=== PATIENT | male | born 1960 | race Caucasian/White ===

== ENCOUNTER 2019-04-08 11:11 | Inpatient (IN) | payer MEDICARE, MEDICAID, SELFPAY ==
[2019-04-08] VITALS (9 sets, daily range): BP systolic 111–142; BP diastolic 66–98; PULSE 64–108; RESP 13–20; TEMP 36.6–37.3; O2SAT 91–98; BMI 21.4; BMI 19.7
--- NOTE | 2019-04-08 11:14 | DI.RAD.S_ITS ---
PROCEDURE: XR FEMUR LT MIN 2V INDICATIONS: injury, pain, fall TECHNIQUE: 4 views of the femur were acquired. COMPARISON: None. FINDINGS: Bones: Comminuted fracture involving the intertrochanteric left femur and base of the left femoral neck. Femoral head appears well-seated within the left acetabulum. Distal femur appears intact. Soft tissues: No suspicious soft tissue calcifications or masses. IMPRESSION: Proximal left femur fracture as above Dictated by: Abhijeet Singh M.D. on 04/08/2019 at 12:35 Approved by: Abhijeet Singh M.D. on 04/08/2019 at 12:37
--- NOTE | 2019-04-08 12:11 | DI.RAD.S_ITS ---
PROCEDURE: XR CHEST 1V INDICATIONS: chest pain TECHNIQUE: One view of the chest was acquired. COMPARISON: None. FINDINGS: Surgical changes and devices: Left arm PICC is present, tip of which is in the mid SVC. Lungs and pleura: Lungs are clear. No pleural effusions or pneumothorax. Mediastinum: Mediastinal contours appear normal. Heart size is normal. Bones and chest wall: No suspicious bony lesions. Overlying soft tissues appear unremarkable. IMPRESSION: No acute process. Dictated by: Jose Weldon M.D. on 04/08/2019 at 13:32 Approved by: Jose Weldon M.D. on 04/08/2019 at 13:33
--- NOTE | 2019-04-08 12:20 | PC.NURSE ---
Marily VILLALPANDO at bedside to do picc line
[2019-04-08 12:47] LABS: Urine Amphetamines Positive (Negative); Urine Barbiturates Negative (Negative); Urine Benzodiazepines Negative (Negative); Urine Cocaine Negative (Negative); Urine MDMA Negative (Negative); Urine Methadone Negative (Negative); Urine Methamphetamines Positive (Negative); Urine Morphine/Opi cutoff 2000 Positive (Negative); Urine Oxycodone Positive (Negative); Urine Phencyclidine Negative (Negative); Urine Tetrahydrocannabinol Negative (Negative); Urine Tricyclic Antidepressant Negative (Negative)
--- NOTE | 2019-04-08 12:54 | ED.LOWEXIN ---
HPI - Extremity Injury (Lower) <JOS Acosta - Last Filed: 04/08/19 19:07> General Chief Complaint: Extremity Injury, Lower Stated Complaint: Fall, leg pain Time Seen by Provider: 04/08/19 12:47 Source: patient and EMS Mode of arrival: wheelchair Limitations: no limitations History of Present Illness HPI Narrative: The patient is a 59-year-old male smoker was running into the bank and fell. He complained of immediate left leg pain/ hip pain. The patient does have a history of IV drug use and uses heroin and opiates. He states he is unable to bear weight. He denies any specific injury to his left leg before hand. Denies blood thinners. He states he is supposed to be on some medication, but does not take any. He states that he is supposed to be on medication for his asthma. He states he had a CVA a year ago. 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 He states he has been clean for approximately 1 week. He was following with a prescriber for Suboxone, but is unable to identify where he is getting it. He presented by EMS. He denies hitting his head, loss of consciousness neck pain or any other pain. Related Data Home Medications Medication Instructions Recorded Confirmed albuterol sulfate 1 puff INHALATION PRN PRN 04/08/19 04/08/19 fluticasone propion-salmeterol 1 puff INHALATION BID 04/08/19 04/08/19 Previous Rx's Medication Instructions Recorded oxycodone 10 mg PO Q6H PRN #20 tab 04/12/19 Allergies Allergy/AdvReac Type Severity Reaction Status Date / Time amoxicillin [AMOXICILLIN] Allergy Unknown DOES NOT Verified 04/08/19 13:52 REMEMBER SOMETHING NOT GOOD Penicillins [PENICILLINS] Allergy Unknown CAN'T Verified 04/08/19 13:52 REMEMBER RX Review of Systems <JOS Acosta - Last Filed: 04/08/19 19:07> Review of Systems GENERAL: Denies chills, fatigue, malaise, fever, sweats. HEENT: Denies sinus pain, ear pain, sore throat, difficulty swallowing, dizziness. RESPIRATORY: See HPI CARDIOVASCULAR: Denies chest pain, palpitations, orthopnea, edema, GASTROINTESTINAL: Denies nausea, vomiting, abdominal pain, diarrhea, constipation, melena. : Denies dysuria, frequency, incontinence, hematuria, urinary retention. MUSCULOSKELETAL: See HPI SKIN: See HPI NEUROLOGIC: Denies weakness, headache, numbness, change in speech, confusion, seizures, incoordination. PSYCHIATRIC: No concerning psychosocial issues. 12 point review of systems is negative except for those stated above PFSH <GOKUL Acosta-BC - Last Filed: 04/08/19 19:07> Medical History Closed intertrochanteric fracture of left femur (Acute) Drug abuse, IV (Acute) Asthma (Chronic) Chronic back pain greater than 3 months duration (Chronic) Depression (Chronic) History of CVA (cerebrovascular accident) (Inactive) Surgical History History of hernia repair (Acute) Social History household members: friend(s) Smoking Status: Current some day smoker Social History household members: significant other Smoking Status: Current some day smoker Exam <GOKUL Acosta-BC - Last Filed: 04/08/19 19:07> Narrative Exam Narrative: GENERAL: Chronically ill-appearing thin man lying on stretcher HEAD: Atraumatic. Normocephalic. No temporal or scalp tenderness. EYES: Pupils equal round and reactive. Extraocular motions intact. No scleral icterus. No injection or drainage. ENT: Nose without bleeding, purulent drainage or septal hematoma. Throat without erythema, tonsillar hypertrophy or exudate. Uvula midline. Airway patent. NECK: Trachea midline. No JVD or lymphadenopathy. Supple, nontender, no meningeal signs. CARDIOVASCULAR: Regular rate and rhythm without murmurs, gallops, or rubs. RESPIRATORY: Breath sounds equal bilaterally. Diffuse inspiratory and expiratory wheezes bilaterally. No accessory muscle use. No retractions. GASTROINTESTINAL: Abdomen soft, non-tender, nondistended. No hepato-splenomegaly, or palpable masses. No guarding. EXTREMITIES: Pain to palpation left hip. Positive pedal pulses bilaterally. No pedal edema bilaterally. BACK: No point C-spine palpation. NEURO: Alert. Oriented. SKIN: IV drug use injection sites noted bilateral forearms. No discrete abscess is noted. Scabbing noted left forearm. Initial Vital Signs Initial Vital Signs: Vital Signs Temperature 98.0 F 04/08/19 11:15 Pulse Rate 64 04/08/19 11:15 Respiratory Rate 20 04/08/19 11:15 Blood Pressure 111/66 04/08/19 11:15 Pulse Oximetry 96 04/08/19 11:15 <Giovanna Ward MD - Last Filed: 04/14/19 07:24> Initial Vital Signs Initial Vital Signs: Vital Signs Temperature 98.0 F 04/08/19 11:15 Pulse Rate 64 04/08/19 11:15 Respiratory Rate 20 04/08/19 11:15 Blood Pressure 111/66 04/08/19 11:15 Pulse Oximetry 96 04/08/19 11:15 Course <JOS Acosta - Last Filed: 04/08/19 19:07> Orders Ordered: Discontinued Medications Al Hydrox/Mg Hydrox/Simethicone (Maalox Plus) 30 ml PO QID PRN PRN Reason: Dyspepsia Albuterol (Ventolin) 2.5 mg INH NOW PRN PRN Reason: Shortness Of Breath Or Wheezing Last Admin: 04/08/19 15:17 Dose: 2.5 mg Admin: 04/08/19 15:04 Dose: 2.5 mg Admin: 04/08/19 15:03 Dose: 2.5 mg Albuterol (Ventolin) 2.5 mg INH [id number] PRN PRN Reason: Shortness Of Breath Or Wheezing Last Admin: 04/09/19 12:06 Dose: 2.5 mg Albuterol/Ipratropium (Duoneb) 3 ml INH NOW ONE Stop: 04/08/19 14:53 Last Admin: 04/08/19 14:53 Dose: 3 ml Albuterol/Ipratropium (Duoneb) 3 ml INH [id number] ERIN Last Admin: 04/10/19 09:02 Dose: 3 ml Admin: 04/09/19 16:01 Dose: 3 ml Admin: 04/09/19 15:53 Dose: Not Given Admin: 04/09/19 08:41 Dose: 3 ml Admin: 04/08/19 19:26 Dose: 3 ml Albuterol/Ipratropium (Duoneb) 3 ml INH RTBID [facility] Last Admin: 04/12/19 05:14 Dose: 3 ml Admin: 04/11/19 17:37 Dose: 3 ml Admin: 04/11/19 07:40 Dose: 3 ml Admin: 04/10/19 17:43 Dose: 3 ml Bisacodyl (Dulcolax) 10 mg DE PRN PRN PRN Reason: Constipation Bupivacaine HCl/Epinephrine Bitart (Sensorcaine 0.5% W/ Epi (Pf)) 30 ml INJ INTRA-OP ONE Stop: 04/09/19 13:26 Last Admin: 04/09/19 13:25 Dose: 20 ml Docusate Sodium (Colace) 100 mg PO BID [facility] Last Admin: 04/08/19 22:32 Dose: 100 mg Docusate Sodium (Colace) 100 mg PO BID [facility] Last Admin: 04/09/19 09:17 Dose: Not Given Docusate Sodium (Colace) 100 mg PO BID [facility] Last Admin: 04/12/19 08:04 Dose: 100 mg Admin: 04/11/19 20:10 Dose: 100 mg Admin: 04/11/19 14:38 Dose: 100 mg Admin: 04/10/19 20:57 Dose: 100 mg Admin: 04/10/19 08:37 Dose: 100 mg Admin: 04/09/19 20:33 Dose: 100 mg Enoxaparin Sodium (Lovenox) 30 mg SUBCUT BID [facility] Stop: 04/19/19 21:01 Last Admin: 04/11/19 09:18 Dose: Not Given Admin: 04/10/19 20:52 Dose: 30 mg Admin: 04/10/19 08:38 Dose: 30 mg Fentanyl (Sublimaze) 100 mcg IV NOW ONE Stop: 04/09/19 12:02 Last Admin: 04/09/19 12:08 Dose: 50 mcg Admin: 04/09/19 12:00 Dose: 50 mcg Heparin Sodium (Porcine) (Heparin (Cl/Picc/Mid-Line)) 50 unit IV PRN PRN PRN Reason: Flush Heparin Sodium (Porcine) (Heparin (Cl/Picc/Mid-Line)) 50 unit IV BID [facility] Last Admin: 04/09/19 07:51 Dose: 50 unit Heparin Sodium (Porcine) (Heparin (Cl/Picc/Mid-Line)) 50 unit IV PRN PRN PRN Reason: Flush Hydromorphone HCl (Dilaudid) 1 mg IV NOW ONE Stop: 04/08/19 15:44 Last Admin: 04/08/19 16:14 Dose: 1 mg Hydroxyzine HCl (Vistaril) 25 mg IM NOW ONE Stop: 04/09/19 15:26 Last Admin: 04/09/19 15:29 Dose: 25 mg Lactated Ringer's (Lactated Ringers) 1,000 mls @ 100 mls/hr IV CONT ERIN Last Admin: 04/09/19 15:20 Dose: 100 mls/hr Infusion: 04/09/19 10:50 Dose: 100 mls/hr Admin: 04/09/19 00:50 Dose: 100 mls/hr Vancomycin HCl/Dextrose (Vancomycin) 1,000 mg in 200 mls @ 200 mls/hr IV NOW ONE Stop: 04/09/19 09:05 Last Infusion: 04/09/19 10:12 Dose: 200 mls/hr Admin: 04/09/19 08:34 Dose: 200 mls/hr Lactated Ringer's (Lactated Ringers) 1,000 mls @ 42 mls/hr IV CONT ERIN Last Infusion: 04/09/19 15:20 Dose: 0 mls/hr Admin: 04/09/19 11:30 Dose: 42 mls/hr Clindamycin Phosphate (Cleocin) 600 mg in 50 mls @ 50 mls/hr IV NOW ONE Stop: 04/09/19 12:30 Last Infusion: 04/09/19 12:54 Dose: 0 mls/hr Admin: 04/09/19 12:23 Dose: 50 mls/hr Lactated Ringer's (Lactated Ringers) 1,000 mls @ 125 mls/hr IV CONT ERIN Last Admin: 04/11/19 09:34 Dose: 125 mls/hr Infusion: 04/11/19 09:34 Dose: 125 mls/hr Admin: 04/11/19 01:51 Dose: 125 mls/hr Infusion: 04/11/19 01:51 Dose: 125 mls/hr Admin: 04/10/19 19:17 Dose: 125 mls/hr Infusion: 04/10/19 17:00 Dose: 125 mls/hr Admin: 04/10/19 08:50 Dose: 125 mls/hr Infusion: 04/10/19 08:50 Dose: 0 mls/hr Admin: 04/10/19 00:57 Dose: 125 mls/hr Infusion: 04/10/19 00:07 Dose: 125 mls/hr Admin: 04/09/19 16:07 Dose: 125 mls/hr Vancomycin HCl/Dextrose (Vancomycin) 1,000 mg in 200 mls @ 200 mls/hr IV Q12H [facility] Stop: 04/09/19 20:59 Last Admin: 04/09/19 20:30 Dose: 200 mls/hr Lidocaine HCl (Urojet) 5 ml TOP NOW ONE Stop: 04/08/19 12:13 Last Admin: 04/08/19 13:54 Dose: 5 ml Magnesium Hydroxide (Milk Of Magnesia) 30 ml PO BEDTIME [facility] Last Admin: 04/12/19 08:03 Dose: 30 ml Admin: 04/11/19 20:18 Dose: 30 ml Admin: 04/10/19 20:52 Dose: Not Given Admin: 04/09/19 20:37 Dose: 30 ml Metoclopramide HCl (Reglan) 10 mg IV Q8HR PRN PRN Reason: Nausea And Vomiting Last Admin: 04/09/19 08:35 Dose: 10 mg Metoclopramide HCl (Reglan) 10 mg IV Q6HR PRN PRN Reason: Nausea And Vomiting Last Admin: 04/11/19 09:17 Dose: 10 mg Admin: 04/10/19 08:41 Dose: 10 mg Morphine Sulfate (Morphine) 4 mg IV NOW ONE Stop: 04/08/19 13:45 Last Admin: 04/08/19 13:53 Dose: 4 mg Morphine Sulfate (Morphine) 4 mg IV NOW ONE Stop: 04/08/19 15:08 Last Admin: 04/08/19 15:08 Dose: 4 mg Morphine Sulfate (Morphine) 4 mg IV Q4HR PRN PRN Reason: Pain, Severe (7-10) Last Admin: 04/09/19 07:50 Dose: 4 mg Admin: 04/09/19 00:49 Dose: 4 mg Admin: 04/08/19 18:14 Dose: 4 mg Morphine Sulfate (Morphine) 2 mg IV NOW ONE Stop: 04/08/19 20:06 Last Admin: 04/08/19 20:11 Dose: 2 mg Morphine Sulfate (Morphine) 1 mg IV Q5M PRN PRN Reason: Pain, Mild (1-3) Morphine Sulfate (Morphine) 2 mg IV Q5M PRN PRN Reason: Pain, Moderate (4-6) Last Admin: 04/09/19 14:49 Dose: 2 mg Morphine Sulfate (Morphine) 4 mg IV Q5M PRN PRN Reason: Pain, Severe (7-10) Last Admin: 04/09/19 15:14 Dose: 4 mg Admin: 04/09/19 15:03 Dose: 4 mg Morphine Sulfate (Morphine) 1.5 mg IV Q1HR PRN PRN Reason: Pain, Moderate (4-6) Last Admin: 04/11/19 09:33 Dose: 1.5 mg Admin: 04/11/19 01:57 Dose: 1.5 mg Naloxone HCl (Narcan) 0.2 mg IV Q2MIN PRN PRN Reason: Opiate Reversal Naloxone HCl (Narcan) 0.2 mg IV Q2MIN PRN PRN Reason: Opiate Reversal Naloxone HCl (Narcan) 0.2 mg IV Q2MIN PRN PRN Reason: Opiate Reversal Nicotine (Nicoderm) 14 mg TOP NOW ONE Stop: 04/09/19 00:04 Last Admin: 04/09/19 00:50 Dose: 14 mg Ondansetron HCl (Zofran) 4 mg IV NOW ONE Stop: 04/08/19 13:45 Last Admin: 04/08/19 13:53 Dose: 4 mg Ondansetron HCl (Zofran) 4 mg IV Q4HR PRN PRN Reason: Nausea And Vomiting Last Admin: 04/09/19 06:34 Dose: 4 mg Ondansetron HCl (Zofran Odt) 4 mg PO Q8HR PRN PRN Reason: Nausea And Vomiting Ondansetron HCl (Zofran) 4 mg IV Q8HR PRN PRN Reason: Nausea And Vomiting Ondansetron HCl (Zofran) 4 mg IV Q4HR PRN PRN Reason: Nausea And Vomiting Last Admin: 04/11/19 01:43 Dose: 4 mg Admin: 04/10/19 06:55 Dose: 4 mg Oxycodone HCl (Percolone) 10 mg PO Q3HR PRN PRN Reason: Pain, Moderate (4-6) Last Admin: 04/08/19 18:56 Dose: 10 mg Oxycodone HCl (Percolone) 10 mg PO Q4HR [facility] Last Admin: 04/08/19 21:20 Dose: Not Given Oxycodone HCl (Percolone) 10 mg PO Q4HR PRN PRN Reason: Pain, Moderate (4-6) Last Admin: 04/09/19 04:13 Dose: 10 mg Admin: 04/08/19 22:47 Dose: 10 mg Oxycodone HCl (Percolone) 5 mg PO Q3HR PRN PRN Reason: Pain, Moderate (4-6) Last Admin: 04/10/19 19:16 Dose: 5 mg Admin: 04/10/19 14:59 Dose: 5 mg Admin: 04/10/19 08:37 Dose: 5 mg Oxycodone HCl (Percolone) 10 mg PO Q3HR PRN PRN Reason: Pain, Severe (7-10) Last Admin: 04/12/19 09:40 Dose: 10 mg Admin: 04/12/19 05:43 Dose: 10 mg Admin: 04/12/19 05:35 Dose: 10 mg Admin: 04/11/19 23:56 Dose: 10 mg Admin: 04/11/19 20:14 Dose: 10 mg Admin: 04/11/19 17:07 Dose: 10 mg Admin: 04/11/19 14:37 Dose: 10 mg Admin: 04/11/19 03:09 Dose: 10 mg Admin: 04/10/19 22:12 Dose: 10 mg Oxycodone/Acetaminophen (Percocet 5/325) 1 tab PO Q30MIN PRN PRN Reason: Mild or moderate pain Pantoprazole Sodium (Protonix) 40 mg IV DAILY [facility] Last Admin: 04/12/19 08:03 Dose: 40 mg Potassium Chloride (Klor-Con M10) 40 meq PO NOW ONE Stop: 04/13/19 10:07 Sodium Chloride (Normal Saline 0.9% Flush) 10 ml IV PRN PRN PRN Reason: Flush Sodium Chloride (Normal Saline 0.9% Flush) 10 ml IV BID [facility] Last Admin: 04/09/19 07:51 Dose: 10 ml Vital Signs - 8 hr 04/08/19 11:15 04/08/19 14:53 04/08/19 15:00 Temperature 98.0 F Pulse Rate 64 90 108 H Respiratory Rate 20 18 20 Blood Pressure 111/66 Blood Pressure [Left Arm] 141/98 H Pulse Oximetry 96 91 04/08/19 15:04 04/08/19 16:17 Temperature Pulse Rate 91 H 108 H Respiratory Rate 13 20 Blood Pressure 142/77 H Blood Pressure [Left Arm] Pulse Oximetry 97 93 <Giovanna Ward MD - Last Filed: 04/14/19 07:24> Orders Ordered: Discontinued Medications Al Hydrox/Mg Hydrox/Simethicone (Maalox Plus) 30 ml PO QID PRN PRN Reason: Dyspepsia Albuterol (Ventolin) 2.5 mg INH NOW PRN PRN Reason: Shortness Of Breath Or Wheezing Last Admin: 04/08/19 15:17 Dose: 2.5 mg Admin: 04/08/19 15:04 Dose: 2.5 mg Admin: 04/08/19 15:03 Dose: 2.5 mg Albuterol (Ventolin) 2.5 mg INH [id number] PRN PRN Reason: Shortness Of Breath Or Wheezing Last Admin: 04/09/19 12:06 Dose: 2.5 mg Albuterol/Ipratropium (Duoneb) 3 ml INH NOW ONE Stop: 04/08/19 14:53 Last Admin: 04/08/19 14:53 Dose: 3 ml Albuterol/Ipratropium (Duoneb) 3 ml INH [id number] [facility] Last Admin: 04/10/19 09:02 Dose: 3 ml Admin: 04/09/19 16:01 Dose: 3 ml Admin: 04/09/19 15:53 Dose: Not Given Admin: 04/09/19 08:41 Dose: 3 ml Admin: 04/08/19 19:26 Dose: 3 ml Albuterol/Ipratropium (Duoneb) 3 ml INH RTBID [facility] Last Admin: 04/12/19 05:14 Dose: 3 ml Admin: 04/11/19 17:37 Dose: 3 ml Admin: 04/11/19 07:40 Dose: 3 ml Admin: 04/10/19 17:43 Dose: 3 ml Bisacodyl (Dulcolax) 10 mg DE PRN PRN PRN Reason: Constipation Bupivacaine HCl/Epinephrine Bitart (Sensorcaine 0.5% W/ Epi (Pf)) 30 ml INJ INTRA-OP ONE Stop: 04/09/19 13:26 Last Admin: 04/09/19 13:25 Dose: 20 ml Docusate Sodium (Colace) 100 mg PO BID [facility] Last Admin: 04/08/19 22:32 Dose: 100 mg Docusate Sodium (Colace) 100 mg PO BID [facility] Last Admin: 04/09/19 09:17 Dose: Not Given Docusate Sodium (Colace) 100 mg PO BID [facility] Last Admin: 04/12/19 08:04 Dose: 100 mg Admin: 04/11/19 20:10 Dose: 100 mg Admin: 04/11/19 14:38 Dose: 100 mg Admin: 04/10/19 20:57 Dose: 100 mg Admin: 04/10/19 08:37 Dose: 100 mg Admin: 04/09/19 20:33 Dose: 100 mg Enoxaparin Sodium (Lovenox) 30 mg SUBCUT BID [facility] Stop: 04/19/19 21:01 Last Admin: 04/11/19 09:18 Dose: Not Given Admin: 04/10/19 20:52 Dose: 30 mg Admin: 04/10/19 08:38 Dose: 30 mg Fentanyl (Sublimaze) 100 mcg IV NOW ONE Stop: 04/09/19 12:02 Last Admin: 04/09/19 12:08 Dose: 50 mcg Admin: 04/09/19 12:00 Dose: 50 mcg Heparin Sodium (Porcine) (Heparin (Cl/Picc/Mid-Line)) 50 unit IV PRN PRN PRN Reason: Flush Heparin Sodium (Porcine) (Heparin (Cl/Picc/Mid-Line)) 50 unit IV BID [facility] Last Admin: 04/09/19 07:51 Dose: 50 unit Heparin Sodium (Porcine) (Heparin (Cl/Picc/Mid-Line)) 50 unit IV PRN PRN PRN Reason: Flush Hydromorphone HCl (Dilaudid) 1 mg IV NOW ONE Stop: 04/08/19 15:44 Last Admin: 04/08/19 16:14 Dose: 1 mg Hydroxyzine HCl (Vistaril) 25 mg IM NOW ONE Stop: 04/09/19 15:26 Last Admin: 04/09/19 15:29 Dose: 25 mg Lactated Ringer's (Lactated Ringers) 1,000 mls @ 100 mls/hr IV CONT ERIN Last Admin: 04/09/19 15:20 Dose: 100 mls/hr Infusion: 04/09/19 10:50 Dose: 100 mls/hr Admin: 04/09/19 00:50 Dose: 100 mls/hr Vancomycin HCl/Dextrose (Vancomycin) 1,000 mg in 200 mls @ 200 mls/hr IV NOW ONE Stop: 04/09/19 09:05 Last Infusion: 04/09/19 10:12 Dose: 200 mls/hr Admin: 04/09/19 08:34 Dose: 200 mls/hr Lactated Ringer's (Lactated Ringers) 1,000 mls @ 42 mls/hr IV CONT ERIN Last Infusion: 04/09/19 15:20 Dose: 0 mls/hr Admin: 04/09/19 11:30 Dose: 42 mls/hr Clindamycin Phosphate (Cleocin) 600 mg in 50 mls @ 50 mls/hr IV NOW ONE Stop: 04/09/19 12:30 Last Infusion: 04/09/19 12:54 Dose: 0 mls/hr Admin: 04/09/19 12:23 Dose: 50 mls/hr Lactated Ringer's (Lactated Ringers) 1,000 mls @ 125 mls/hr IV CONT ERIN Last Admin: 04/11/19 09:34 Dose: 125 mls/hr Infusion: 04/11/19 09:34 Dose: 125 mls/hr Admin: 04/11/19 01:51 Dose: 125 mls/hr Infusion: 04/11/19 01:51 Dose: 125 mls/hr Admin: 04/10/19 19:17 Dose: 125 mls/hr Infusion: 04/10/19 17:00 Dose: 125 mls/hr Admin: 04/10/19 08:50 Dose: 125 mls/hr Infusion: 04/10/19 08:50 Dose: 0 mls/hr Admin: 04/10/19 00:57 Dose: 125 mls/hr Infusion: 04/10/19 00:07 Dose: 125 mls/hr Admin: 04/09/19 16:07 Dose: 125 mls/hr Vancomycin HCl/Dextrose (Vancomycin) 1,000 mg in 200 mls @ 200 mls/hr IV Q12H [facility] Stop: 04/09/19 20:59 Last Admin: 04/09/19 20:30 Dose: 200 mls/hr Lidocaine HCl (Urojet) 5 ml TOP NOW ONE Stop: 04/08/19 12:13 Last Admin: 04/08/19 13:54 Dose: 5 ml Magnesium Hydroxide (Milk Of Magnesia) 30 ml PO BEDTIME [facility] Last Admin: 04/12/19 08:03 Dose: 30 ml Admin: 04/11/19 20:18 Dose: 30 ml Admin: 04/10/19 20:52 Dose: Not Given Admin: 04/09/19 20:37 Dose: 30 ml Metoclopramide HCl (Reglan) 10 mg IV Q8HR PRN PRN Reason: Nausea And Vomiting Last Admin: 04/09/19 08:35 Dose: 10 mg Metoclopramide HCl (Reglan) 10 mg IV Q6HR PRN PRN Reason: Nausea And Vomiting Last Admin: 04/11/19 09:17 Dose: 10 mg Admin: 04/10/19 08:41 Dose: 10 mg Morphine Sulfate (Morphine) 4 mg IV NOW ONE Stop: 04/08/19 13:45 Last Admin: 04/08/19 13:53 Dose: 4 mg Morphine Sulfate (Morphine) 4 mg IV NOW ONE Stop: 04/08/19 15:08 Last Admin: 04/08/19 15:08 Dose: 4 mg Morphine Sulfate (Morphine) 4 mg IV Q4HR PRN PRN Reason: Pain, Severe (7-10) Last Admin: 04/09/19 07:50 Dose: 4 mg Admin: 04/09/19 00:49 Dose: 4 mg Admin: 04/08/19 18:14 Dose: 4 mg Morphine Sulfate (Morphine) 2 mg IV NOW ONE Stop: 04/08/19 20:06 Last Admin: 04/08/19 20:11 Dose: 2 mg Morphine Sulfate (Morphine) 1 mg IV Q5M PRN PRN Reason: Pain, Mild (1-3) Morphine Sulfate (Morphine) 2 mg IV Q5M PRN PRN Reason: Pain, Moderate (4-6) Last Admin: 04/09/19 14:49 Dose: 2 mg Morphine Sulfate (Morphine) 4 mg IV Q5M PRN PRN Reason: Pain, Severe (7-10) Last Admin: 04/09/19 15:14 Dose: 4 mg Admin: 04/09/19 15:03 Dose: 4 mg Morphine Sulfate (Morphine) 1.5 mg IV Q1HR PRN PRN Reason: Pain, Moderate (4-6) Last Admin: 04/11/19 09:33 Dose: 1.5 mg Admin: 04/11/19 01:57 Dose: 1.5 mg Naloxone HCl (Narcan) 0.2 mg IV Q2MIN PRN PRN Reason: Opiate Reversal Naloxone HCl (Narcan) 0.2 mg IV Q2MIN PRN PRN Reason: Opiate Reversal Naloxone HCl (Narcan) 0.2 mg IV Q2MIN PRN PRN Reason: Opiate Reversal Nicotine (Nicoderm) 14 mg TOP NOW ONE Stop: 04/09/19 00:04 Last Admin: 04/09/19 00:50 Dose: 14 mg Ondansetron HCl (Zofran) 4 mg IV NOW ONE Stop: 04/08/19 13:45 Last Admin: 04/08/19 13:53 Dose: 4 mg Ondansetron HCl (Zofran) 4 mg IV Q4HR PRN PRN Reason: Nausea And Vomiting Last Admin: 04/09/19 06:34 Dose: 4 mg Ondansetron HCl (Zofran Odt) 4 mg PO Q8HR PRN PRN Reason: Nausea And Vomiting Ondansetron HCl (Zofran) 4 mg IV Q8HR PRN PRN Reason: Nausea And Vomiting Ondansetron HCl (Zofran) 4 mg IV Q4HR PRN PRN Reason: Nausea And Vomiting Last Admin: 04/11/19 01:43 Dose: 4 mg Admin: 04/10/19 06:55 Dose: 4 mg Oxycodone HCl (Percolone) 10 mg PO Q3HR PRN PRN Reason: Pain, Moderate (4-6) Last Admin: 04/08/19 18:56 Dose: 10 mg Oxycodone HCl (Percolone) 10 mg PO Q4HR ERIN Last Admin: 04/08/19 21:20 Dose: Not Given Oxycodone HCl (Percolone) 10 mg PO Q4HR PRN PRN Reason: Pain, Moderate (4-6) Last Admin: 04/09/19 04:13 Dose: 10 mg Admin: 04/08/19 22:47 Dose: 10 mg Oxycodone HCl (Percolone) 5 mg PO Q3HR PRN PRN Reason: Pain, Moderate (4-6) Last Admin: 04/10/19 19:16 Dose: 5 mg Admin: 04/10/19 14:59 Dose: 5 mg Admin: 04/10/19 08:37 Dose: 5 mg Oxycodone HCl (Percolone) 10 mg PO Q3HR PRN PRN Reason: Pain, Severe (7-10) Last Admin: 04/12/19 09:40 Dose: 10 mg Admin: 04/12/19 05:43 Dose: 10 mg Admin: 04/12/19 05:35 Dose: 10 mg Admin: 04/11/19 23:56 Dose: 10 mg Admin: 04/11/19 20:14 Dose: 10 mg Admin: 04/11/19 17:07 Dose: 10 mg Admin: 04/11/19 14:37 Dose: 10 mg Admin: 04/11/19 03:09 Dose: 10 mg Admin: 04/10/19 22:12 Dose: 10 mg Oxycodone/Acetaminophen (Percocet 5/325) 1 tab PO Q30MIN PRN PRN Reason: Mild or moderate pain Pantoprazole Sodium (Protonix) 40 mg IV DAILY [facility] Last Admin: 04/12/19 08:03 Dose: 40 mg Potassium Chloride (Klor-Con M10) 40 meq PO NOW ONE Stop: 04/13/19 10:07 Sodium Chloride (Normal Saline 0.9% Flush) 10 ml IV PRN PRN PRN Reason: Flush Sodium Chloride (Normal Saline 0.9% Flush) 10 ml IV BID [facility] Last Admin: 04/09/19 07:51 Dose: 10 ml Vital Signs - 8 hr 04/08/19 11:15 04/08/19 14:53 04/08/19 15:00 Temperature 98.0 F Pulse Rate 64 90 108 H Respiratory Rate 20 18 20 Blood Pressure 111/66 Blood Pressure [Left Arm] 141/98 H Pulse Oximetry 96 91 04/08/19 15:04 04/08/19 16:17 Temperature Pulse Rate 91 H 108 H Respiratory Rate 13 20 Blood Pressure 142/77 H Blood Pressure [Left Arm] Pulse Oximetry 97 93 MDM - Extremity Injury (Lower) <Mya Henderson [employer] - Last Filed: 04/08/19 19:07> Lab Data Result diagrams: 04/12/19 05:50 04/12/19 05:50 Lab Results 04/08/19 04/08/19 04/08/19 Range/Units 12:12 14:05 14:05 WBC 11.8 H (4.5-11.0) X10^3/uL RBC 5.13 (4.5-5.9) X10^6/uL Hgb 12.7 L (13.5-17.5) g/dL Hct 39.2 L (41-53) % MCV 76.4 L (80-100) fL MCH 24.8 L (26-34) PG MCHC 32.5 (30-36) % RDW 16.0 H (11.6-14.8) % Plt Count 217 (150-400) X10^3/uL Neut % (Auto) 85.7 H (50-75) % Lymph % (Auto) 9.0 L (25-40) % [place] % (Auto) 4.5 (3-14) % Eos % (Auto) 0.6 L (2-4) % Baso % (Auto) 0.2 (0-2) % Neut # (Auto) 19148 H (0435-7456) /uL Lymph # (Auto) 1100 (8683-0720) /uL [place] # (Auto) 500 (0-900) /uL Eos # (Auto) 100 (0-450) /uL Baso # (Auto) 0 (0-100) /uL PT 11.4 (10.1-12.7) SECONDS INR 1.0 (0.9-1.3) APTT 30 (26.4-36.2) SECONDS Sodium (137-145) mmol/L Potassium (3.4-5.1) mmol/L Chloride (98-107) mmol/L Carbon Dioxide (22-32) mmol/L BUN (9-20) mg/dL Creatinine (0.66-1.25) mg/dL Estimated GFR (>60) mL/min BUN/Creatinine Ratio (6-22) Glucose (70-100) mg/dL Calcium (8.4-10.2) mg/dL Total Bilirubin (0.2-1.3) mg/dL AST (17-59) IU/L ALT (21-72) IU/L Alkaline Phosphatase (38-126) U/L Total Protein (6.3-8.2) g/dL Albumin (3.5-5.0) g/dL Globulin (1.7-4.1) g/dL Albumin/Globulin Ratio (1.0-2.8) Lipase (23-300) U/L Procalcitonin (<0.5) ng/mL Urine Opiates Screen Positive H (Negative) Ur Oxycodone Screen Positive H (Negative) Urine Methadone Screen Negative (Negative) Ur Barbiturates Screen Negative (Negative) U Tricyclic Antidepress Negative (Negative) Ur Phencyclidine Scrn Negative (Negative) Ur Amphetamines Screen Positive H (Negative) U Methamphetamines Scrn Positive H (Negative) Ur MDMA Scrn (Ecstasy) Negative (Negative) U Benzodiazepines Scrn Negative (Negative) Urine Cocaine Screen Negative (Negative) U Marijuana (THC) Screen Negative (Negative) Ethyl Alcohol mg/dL 04/08/19 04/08/19 04/09/19 Range/Units 14:05 14:05 05:25 WBC 11.1 H (4.5-11.0) X10^3/uL RBC 5.01 (4.5-5.9) X10^6/uL Hgb 12.7 L (13.5-17.5) g/dL Hct 38.3 L (41-53) % MCV 76.5 L (80-100) fL MCH 25.4 L (26-34) PG MCHC 33.1 (30-36) % RDW 15.9 H (11.6-14.8) % Plt Count 223 (150-400) X10^3/uL Neut % (Auto) 83.7 H (50-75) % Lymph % (Auto) 10.4 L (25-40) % [place] % (Auto) 5.7 (3-14) % Eos % (Auto) 0.2 L (2-4) % Baso % (Auto) 0.0 (0-2) % Neut # (Auto) 9300 H (2413-1295) /uL Lymph # (Auto) 1200 (4844-2880) /uL [place] # (Auto) 600 (0-900) /uL Eos # (Auto) 0 (0-450) /uL Baso # (Auto) 0 (0-100) /uL PT (10.1-12.7) SECONDS INR (0.9-1.3) APTT (26.4-36.2) SECONDS Sodium 138 (137-145) mmol/L Potassium 4.1 (3.4-5.1) mmol/L Chloride 101 (98-107) mmol/L Carbon Dioxide 30 (22-32) mmol/L BUN 13 (9-20) mg/dL Creatinine 0.60 L (0.66-1.25) mg/dL Estimated GFR > 60.0 (>60) mL/min BUN/Creatinine Ratio 21.7 (6-22) Glucose 106 H (70-100) mg/dL Calcium 8.6 (8.4-10.2) mg/dL Total Bilirubin 0.7 (0.2-1.3) mg/dL AST 87 H (17-59) IU/L ALT 110 H (21-72) IU/L Alkaline Phosphatase 105 (38-126) U/L Total Protein 7.1 (6.3-8.2) g/dL Albumin 3.7 (3.5-5.0) g/dL Globulin 3.4 (1.7-4.1) g/dL Albumin/Globulin Ratio 1.1 (1.0-2.8) Lipase 36 (23-300) U/L Procalcitonin (<0.5) ng/mL Urine Opiates Screen (Negative) Ur Oxycodone Screen (Negative) Urine Methadone Screen (Negative) Ur Barbiturates Screen (Negative) U Tricyclic Antidepress (Negative) Ur Phencyclidine Scrn (Negative) Ur Amphetamines Screen (Negative) U Methamphetamines Scrn (Negative) Ur MDMA Scrn (Ecstasy) (Negative) U Benzodiazepines Scrn (Negative) Urine Cocaine Screen (Negative) U Marijuana (THC) Screen (Negative) Ethyl Alcohol < 10 mg/dL 04/09/19 04/09/19 04/10/19 Range/Units 05:25 05:25 05:21 WBC 19.5 H D (4.5-11.0) X10^3/uL RBC 4.60 (4.5-5.9) X10^6/uL Hgb 11.6 L (13.5-17.5) g/dL Hct 34.9 L (41-53) % MCV 75.8 L (80-100) fL MCH 25.2 L (26-34) PG MCHC 33.2 (30-36) % RDW 16.1 H (11.6-14.8) % Plt Count 250 (150-400) X10^3/uL Neut % (Auto) (50-75) % Lymph % (Auto) (25-40) % [place] % (Auto) (3-14) % Eos % (Auto) (2-4) % Baso % (Auto) (0-2) % Neut # (Auto) (9423-4692) /uL Lymph # (Auto) (0989-8879) /uL [place] # (Auto) (0-900) /uL Eos # (Auto) (0-450) /uL Baso # (Auto) (0-100) /uL PT (10.1-12.7) SECONDS INR (0.9-1.3) APTT 30 (26.4-36.2) SECONDS Sodium 135 L (137-145) mmol/L Potassium 4.0 (3.4-5.1) mmol/L Chloride 98 (98-107) mmol/L Carbon Dioxide 32 (22-32) mmol/L BUN 11 (9-20) mg/dL Creatinine 0.50 L (0.66-1.25) mg/dL Estimated GFR > 60.0 (>60) mL/min BUN/Creatinine Ratio 22.0 (6-22) Glucose 116 H (70-100) mg/dL Calcium 8.6 (8.4-10.2) mg/dL Total Bilirubin 1.0 (0.2-1.3) mg/dL AST 66 H (17-59) IU/L ALT 90 H (21-72) IU/L Alkaline Phosphatase 105 (38-126) U/L Total Protein 7.0 (6.3-8.2) g/dL Albumin 3.6 (3.5-5.0) g/dL Globulin 3.4 (1.7-4.1) g/dL Albumin/Globulin Ratio 1.1 (1.0-2.8) Lipase (23-300) U/L Procalcitonin (<0.5) ng/mL Urine Opiates Screen (Negative) Ur Oxycodone Screen (Negative) Urine Methadone Screen (Negative) Ur Barbiturates Screen (Negative) U Tricyclic Antidepress (Negative) Ur Phencyclidine Scrn (Negative) Ur Amphetamines Screen (Negative) U Methamphetamines Scrn (Negative) Ur MDMA Scrn (Ecstasy) (Negative) U Benzodiazepines Scrn (Negative) Urine Cocaine Screen (Negative) U Marijuana (THC) Screen (Negative) Ethyl Alcohol mg/dL 04/11/19 04/11/19 04/12/19 Range/Units 05:58 14:30 05:50 WBC 13.3 H 14.3 H 18.2 H (4.5-11.0) X10^3/uL RBC 3.81 L 4.16 L 3.97 L (4.5-5.9) X10^6/uL Hgb 10.0 L 10.6 L 10.2 L (13.5-17.5) g/dL Hct 29.0 L 31.8 L 30.5 L (41-53) % MCV 76.1 L 76.6 L 76.7 L (80-100) fL MCH 26.3 25.4 L 25.8 L (26-34) PG MCHC 34.5 33.2 33.6 (30-36) % RDW 16.0 H 15.8 H 16.0 H (11.6-14.8) % Plt Count 209 253 301 (150-400) X10^3/uL Neut % (Auto) 84.4 H 83.2 H 71.8 (50-75) % Lymph % (Auto) 8.6 L 8.6 L 18.2 L (25-40) % [place] % (Auto) 6.7 8.0 9.4 (3-14) % Eos % (Auto) 0.1 L 0.0 L 0.4 L (2-4) % Baso % (Auto) 0.2 0.2 0.2 (0-2) % Neut # (Auto) 86997 H 88072 H 90093 H (0463-2756) /uL Lymph # (Auto) 1100 1200 3300 (8782-3511) /uL [place] # (Auto) 900 1100 H 1700 H (0-900) /uL Eos # (Auto) 0 0 100 (0-450) /uL Baso # (Auto) 0 0 0 (0-100) /uL PT (10.1-12.7) SECONDS INR (0.9-1.3) APTT (26.4-36.2) SECONDS Sodium (137-145) mmol/L Potassium (3.4-5.1) mmol/L Chloride (98-107) mmol/L Carbon Dioxide (22-32) mmol/L BUN (9-20) mg/dL Creatinine (0.66-1.25) mg/dL Estimated GFR (>60) mL/min BUN/Creatinine Ratio (6-22) Glucose (70-100) mg/dL Calcium (8.4-10.2) mg/dL Total Bilirubin (0.2-1.3) mg/dL AST (17-59) IU/L ALT (21-72) IU/L Alkaline Phosphatase (38-126) U/L Total Protein (6.3-8.2) g/dL Albumin (3.5-5.0) g/dL Globulin (1.7-4.1) g/dL Albumin/Globulin Ratio (1.0-2.8) Lipase (23-300) U/L Procalcitonin (<0.5) ng/mL Urine Opiates Screen (Negative) Ur Oxycodone Screen (Negative) Urine Methadone Screen (Negative) Ur Barbiturates Screen (Negative) U Tricyclic Antidepress (Negative) Ur Phencyclidine Scrn (Negative) Ur Amphetamines Screen (Negative) U Methamphetamines Scrn (Negative) Ur MDMA Scrn (Ecstasy) (Negative) U Benzodiazepines Scrn (Negative) Urine Cocaine Screen (Negative) U Marijuana (THC) Screen (Negative) Ethyl Alcohol mg/dL 04/12/19 04/12/19 Range/Units 05:50 05:50 WBC (4.5-11.0) X10^3/uL RBC (4.5-5.9) X10^6/uL Hgb (13.5-17.5) g/dL Hct (41-53) % MCV (80-100) fL MCH (26-34) PG MCHC (30-36) % RDW (11.6-14.8) % Plt Count (150-400) X10^3/uL Neut % (Auto) (50-75) % Lymph % (Auto) (25-40) % [place] % (Auto) (3-14) % Eos % (Auto) (2-4) % Baso % (Auto) (0-2) % Neut # (Auto) (0899-1093) /uL Lymph # (Auto) (2145-4442) /uL [place] # (Auto) (0-900) /uL Eos # (Auto) (0-450) /uL Baso # (Auto) (0-100) /uL PT (10.1-12.7) SECONDS INR (0.9-1.3) APTT (26.4-36.2) SECONDS Sodium 135 L (137-145) mmol/L Potassium 3.2 L (3.4-5.1) mmol/L Chloride 100 (98-107) mmol/L Carbon Dioxide 28 (22-32) mmol/L BUN 17 (9-20) mg/dL Creatinine 0.60 L (0.66-1.25) mg/dL Estimated GFR > 60.0 (>60) mL/min BUN/Creatinine Ratio 28.3 H (6-22) Glucose 150 H (70-100) mg/dL Calcium 7.9 L (8.4-10.2) mg/dL Total Bilirubin (0.2-1.3) mg/dL AST (17-59) IU/L ALT (21-72) IU/L Alkaline Phosphatase (38-126) U/L Total Protein (6.3-8.2) g/dL Albumin (3.5-5.0) g/dL Globulin (1.7-4.1) g/dL Albumin/Globulin Ratio (1.0-2.8) Lipase (23-300) U/L Procalcitonin 2.38 H (<0.5) ng/mL Urine Opiates Screen (Negative) Ur Oxycodone Screen (Negative) Urine Methadone Screen (Negative) Ur Barbiturates Screen (Negative) U Tricyclic Antidepress (Negative) Ur Phencyclidine Scrn (Negative) Ur Amphetamines Screen (Negative) U Methamphetamines Scrn (Negative) Ur MDMA Scrn (Ecstasy) (Negative) U Benzodiazepines Scrn (Negative) Urine Cocaine Screen (Negative) U Marijuana (THC) Screen (Negative) Ethyl Alcohol mg/dL Imaging Data femur xray : Radiologist's impression: [address] [address] XRay Report Signed Patient: Krysta Ramesh#: [id number] : 1960Acct:[id number] Age/Sex: 59 / MDate of Service: 04/08/19 Loc: ED Accession Number: [id number] Procedure: XR femur LT min 2V Ordering Provider: Giovanna Ward MD PROCEDURE: XR FEMUR LT MIN 2V INDICATIONS: injury, pain, fall TECHNIQUE: 4 views of the femur were acquired. COMPARISON: None. FINDINGS: Bones: Comminuted fracture involving the intertrochanteric left femur and base of the left femoral neck. Femoral head appears well-seated within the left acetabulum. Distal femur appears intact. Soft tissues: No suspicious soft tissue calcifications or masses. IMPRESSION: Proximal left femur fracture as above Dictated by: Abhijeet Singh M.D. on 04/08/2019 at 12:35 Approved by: Abhijeet Singh M.D. on 04/08/2019 at 12:37 Chest x-ray: Radiologist's impression: [address] [address] XRay Report Signed Patient: Krysta Ramesh#: [id number] : 1960Acct:[id number] Age/Sex: 59 / MDate of Service: 04/08/19 Loc: ED Accession Number: [id number] Procedure: XR chest 1V Ordering Provider: Giovanna Ward MD PROCEDURE: XR CHEST 1V INDICATIONS: chest pain TECHNIQUE: One view of the chest was acquired. COMPARISON: None. FINDINGS: Surgical changes and devices: Left arm PICC is present, tip of which is in the mid SVC. Lungs and pleura: Lungs are clear. No pleural effusions or pneumothorax. Mediastinum: Mediastinal contours appear normal. Heart size is normal. Bones and chest wall: No suspicious bony lesions. Overlying soft tissues appear unremarkable. IMPRESSION: No acute process. Dictated by: Jose Weldon M.D. on 04/08/2019 at 13:32 Approved by: Jose Weldon M.D. on 04/08/2019 at 13:33 MDM Narrative Medical decision making narrative: The patient is a 59-year-old male who presents with chief complaint of hip pain. He has a left proximal femur fracture. After this was found, a modified trauma was activated on the patient as he has a long but fracture. I spoke with Dr. Bruno from [facility], who reviewed the patient's films and recommended he go to surgery in the morning as his last oral intake was 2 hours prior to arrival. Given his history of asthma as well as IV drug use, he suggested that the patient go to Medicine Service. I spoke with Dr. Wallace who was kind enough to admit the patient to inpatient hospitalist service. He did have an EKG as well as a chest x-ray for preoperative management. The patient was given morphine as well as a single dose of Dilaudid throughout his stay in the emergency department for pain. His labs were grossly normal. His drug screen came back positive for opiates, oxycodone and methamphetamine. As per Dr. wallace's request, blood cultures were ordered prior to patient admission. Dr. Bruno evaluated the patient the emergency department. He remains nontoxic throughout his stay in the emergency department. He was found to be wheezy, which resolved with nebulizers. <Giovanna Ward MD - Last Filed: 04/14/19 07:24> Lab Data Lab Results 04/08/19 04/08/19 04/08/19 Range/Units 12:12 14:05 14:05 WBC 11.8 H (4.5-11.0) X10^3/uL RBC 5.13 (4.5-5.9) X10^6/uL Hgb 12.7 L (13.5-17.5) g/dL Hct 39.2 L (41-53) % MCV 76.4 L (80-100) fL MCH 24.8 L (26-34) PG MCHC 32.5 (30-36) % RDW 16.0 H (11.6-14.8) % Plt Count 217 (150-400) X10^3/uL Neut % (Auto) 85.7 H (50-75) % Lymph % (Auto) 9.0 L (25-40) % [place] % (Auto) 4.5 (3-14) % Eos % (Auto) 0.6 L (2-4) % Baso % (Auto) 0.2 (0-2) % Neut # (Auto) 17465 H (9764-1656) /uL Lymph # (Auto) 1100 (7298-6994) /uL [place] # (Auto) 500 (0-900) /uL Eos # (Auto) 100 (0-450) /uL Baso # (Auto) 0 (0-100) /uL PT 11.4 (10.1-12.7) SECONDS INR 1.0 (0.9-1.3) APTT 30 (26.4-36.2) SECONDS Sodium (137-145) mmol/L Potassium (3.4-5.1) mmol/L Chloride (98-107) mmol/L Carbon Dioxide (22-32) mmol/L BUN (9-20) mg/dL Creatinine (0.66-1.25) mg/dL Estimated GFR (>60) mL/min BUN/Creatinine Ratio (6-22) Glucose (70-100) mg/dL Calcium (8.4-10.2) mg/dL Total Bilirubin (0.2-1.3) mg/dL AST (17-59) IU/L ALT (21-72) IU/L Alkaline Phosphatase (38-126) U/L Total Protein (6.3-8.2) g/dL Albumin (3.5-5.0) g/dL Globulin (1.7-4.1) g/dL Albumin/Globulin Ratio (1.0-2.8) Lipase (23-300) U/L Procalcitonin (<0.5) ng/mL Urine Opiates Screen Positive H (Negative) Ur Oxycodone Screen Positive H (Negative) Urine Methadone Screen Negative (Negative) Ur Barbiturates Screen Negative (Negative) U Tricyclic Antidepress Negative (Negative) Ur Phencyclidine Scrn Negative (Negative) Ur Amphetamines Screen Positive H (Negative) U Methamphetamines Scrn Positive H (Negative) Ur MDMA Scrn (Ecstasy) Negative (Negative) U Benzodiazepines Scrn Negative (Negative) Urine Cocaine Screen Negative (Negative) U Marijuana (THC) Screen Negative (Negative) Ethyl Alcohol mg/dL 04/08/19 04/08/19 04/09/19 Range/Units 14:05 14:05 05:25 WBC 11.1 H (4.5-11.0) X10^3/uL RBC 5.01 (4.5-5.9) X10^6/uL Hgb 12.7 L (13.5-17.5) g/dL Hct 38.3 L (41-53) % MCV 76.5 L (80-100) fL MCH 25.4 L (26-34) PG MCHC 33.1 (30-36) % RDW 15.9 H (11.6-14.8) % Plt Count 223 (150-400) X10^3/uL Neut % (Auto) 83.7 H (50-75) % Lymph % (Auto) 10.4 L (25-40) % [place] % (Auto) 5.7 (3-14) % Eos % (Auto) 0.2 L (2-4) % Baso % (Auto) 0.0 (0-2) % Neut # (Auto) 9300 H (6837-6627) /uL Lymph # (Auto) 1200 (9192-9403) /uL [place] # (Auto) 600 (0-900) /uL Eos # (Auto) 0 (0-450) /uL Baso # (Auto) 0 (0-100) /uL PT (10.1-12.7) SECONDS INR (0.9-1.3) APTT (26.4-36.2) SECONDS Sodium 138 (137-145) mmol/L Potassium 4.1 (3.4-5.1) mmol/L Chloride 101 (98-107) mmol/L Carbon Dioxide 30 (22-32) mmol/L BUN 13 (9-20) mg/dL Creatinine 0.60 L (0.66-1.25) mg/dL Estimated GFR > 60.0 (>60) mL/min BUN/Creatinine Ratio 21.7 (6-22) Glucose 106 H (70-100) mg/dL Calcium 8.6 (8.4-10.2) mg/dL Total Bilirubin 0.7 (0.2-1.3) mg/dL AST 87 H (17-59) IU/L ALT 110 H (21-72) IU/L Alkaline Phosphatase 105 (38-126) U/L Total Protein 7.1 (6.3-8.2) g/dL Albumin 3.7 (3.5-5.0) g/dL Globulin 3.4 (1.7-4.1) g/dL Albumin/Globulin Ratio 1.1 (1.0-2.8) Lipase 36 (23-300) U/L Procalcitonin (<0.5) ng/mL Urine Opiates Screen (Negative) Ur Oxycodone Screen (Negative) Urine Methadone Screen (Negative) Ur Barbiturates Screen (Negative) U Tricyclic Antidepress (Negative) Ur Phencyclidine Scrn (Negative) Ur Amphetamines Screen (Negative) U Methamphetamines Scrn (Negative) Ur MDMA Scrn (Ecstasy) (Negative) U Benzodiazepines Scrn (Negative) Urine Cocaine Screen (Negative) U Marijuana (THC) Screen (Negative) Ethyl Alcohol < 10 mg/dL 04/09/19 04/09/19 04/10/19 Range/Units 05:25 05:25 05:21 WBC 19.5 H D (4.5-11.0) X10^3/uL RBC 4.60 (4.5-5.9) X10^6/uL Hgb 11.6 L (13.5-17.5) g/dL Hct 34.9 L (41-53) % MCV 75.8 L (80-100) fL MCH 25.2 L (26-34) PG MCHC 33.2 (30-36) % RDW 16.1 H (11.6-14.8) % Plt Count 250 (150-400) X10^3/uL Neut % (Auto) (50-75) % Lymph % (Auto) (25-40) % [place] % (Auto) (3-14) % Eos % (Auto) (2-4) % Baso % (Auto) (0-2) % Neut # (Auto) (9533-2381) /uL Lymph # (Auto) (5646-9723) /uL [place] # (Auto) (0-900) /uL Eos # (Auto) (0-450) /uL Baso # (Auto) (0-100) /uL PT (10.1-12.7) SECONDS INR (0.9-1.3) APTT 30 (26.4-36.2) SECONDS Sodium 135 L (137-145) mmol/L Potassium 4.0 (3.4-5.1) mmol/L Chloride 98 (98-107) mmol/L Carbon Dioxide 32 (22-32) mmol/L BUN 11 (9-20) mg/dL Creatinine 0.50 L (0.66-1.25) mg/dL Estimated GFR > 60.0 (>60) mL/min BUN/Creatinine Ratio 22.0 (6-22) Glucose 116 H (70-100) mg/dL Calcium 8.6 (8.4-10.2) mg/dL Total Bilirubin 1.0 (0.2-1.3) mg/dL AST 66 H (17-59) IU/L ALT 90 H (21-72) IU/L Alkaline Phosphatase 105 (38-126) U/L Total Protein 7.0 (6.3-8.2) g/dL Albumin 3.6 (3.5-5.0) g/dL Globulin 3.4 (1.7-4.1) g/dL Albumin/Globulin Ratio 1.1 (1.0-2.8) Lipase (23-300) U/L Procalcitonin (<0.5) ng/mL Urine Opiates Screen (Negative) Ur Oxycodone Screen (Negative) Urine Methadone Screen (Negative) Ur Barbiturates Screen (Negative) U Tricyclic Antidepress (Negative) Ur Phencyclidine Scrn (Negative) Ur Amphetamines Screen (Negative) U Methamphetamines Scrn (Negative) Ur MDMA Scrn (Ecstasy) (Negative) U Benzodiazepines Scrn (Negative) Urine Cocaine Screen (Negative) U Marijuana (THC) Screen (Negative) Ethyl Alcohol mg/dL 04/11/19 04/11/19 04/12/19 Range/Units 05:58 14:30 05:50 WBC 13.3 H 14.3 H 18.2 H (4.5-11.0) X10^3/uL RBC 3.81 L 4.16 L 3.97 L (4.5-5.9) X10^6/uL Hgb 10.0 L 10.6 L 10.2 L (13.5-17.5) g/dL Hct 29.0 L 31.8 L 30.5 L (41-53) % MCV 76.1 L 76.6 L 76.7 L (80-100) fL MCH 26.3 25.4 L 25.8 L (26-34) PG MCHC 34.5 33.2 33.6 (30-36) % RDW 16.0 H 15.8 H 16.0 H (11.6-14.8) % Plt Count 209 253 301 (150-400) X10^3/uL Neut % (Auto) 84.4 H 83.2 H 71.8 (50-75) % Lymph % (Auto) 8.6 L 8.6 L 18.2 L (25-40) % [place] % (Auto) 6.7 8.0 9.4 (3-14) % Eos % (Auto) 0.1 L 0.0 L 0.4 L (2-4) % Baso % (Auto) 0.2 0.2 0.2 (0-2) % Neut # (Auto) 20448 H 39226 H 21367 H (5764-0311) /uL Lymph # (Auto) 1100 1200 3300 (4627-1075) /uL [place] # (Auto) 900 1100 H 1700 H (0-900) /uL Eos # (Auto) 0 0 100 (0-450) /uL Baso # (Auto) 0 0 0 (0-100) /uL PT (10.1-12.7) SECONDS INR (0.9-1.3) APTT (26.4-36.2) SECONDS Sodium (137-145) mmol/L Potassium (3.4-5.1) mmol/L Chloride (98-107) mmol/L Carbon Dioxide (22-32) mmol/L BUN (9-20) mg/dL Creatinine (0.66-1.25) mg/dL Estimated GFR (>60) mL/min BUN/Creatinine Ratio (6-22) Glucose (70-100) mg/dL Calcium (8.4-10.2) mg/dL Total Bilirubin (0.2-1.3) mg/dL AST (17-59) IU/L ALT (21-72) IU/L Alkaline Phosphatase (38-126) U/L Total Protein (6.3-8.2) g/dL Albumin (3.5-5.0) g/dL Globulin (1.7-4.1) g/dL Albumin/Globulin Ratio (1.0-2.8) Lipase (23-300) U/L Procalcitonin (<0.5) ng/mL Urine Opiates Screen (Negative) Ur Oxycodone Screen (Negative) Urine Methadone Screen (Negative) Ur Barbiturates Screen (Negative) U Tricyclic Antidepress (Negative) Ur Phencyclidine Scrn (Negative) Ur Amphetamines Screen (Negative) U Methamphetamines Scrn (Negative) Ur MDMA Scrn (Ecstasy) (Negative) U Benzodiazepines Scrn (Negative) Urine Cocaine Screen (Negative) U Marijuana (THC) Screen (Negative) Ethyl Alcohol mg/dL 04/12/19 04/12/19 Range/Units 05:50 05:50 WBC (4.5-11.0) X10^3/uL RBC (4.5-5.9) X10^6/uL Hgb (13.5-17.5) g/dL Hct (41-53) % MCV (80-100) fL MCH (26-34) PG MCHC (30-36) % RDW (11.6-14.8) % Plt Count (150-400) X10^3/uL Neut % (Auto) (50-75) % Lymph % (Auto) (25-40) % [place] % (Auto) (3-14) % Eos % (Auto) (2-4) % Baso % (Auto) (0-2) % Neut # (Auto) (1288-8429) /uL Lymph # (Auto) (2494-6404) /uL [place] # (Auto) (0-900) /uL Eos # (Auto) (0-450) /uL Baso # (Auto) (0-100) /uL PT (10.1-12.7) SECONDS INR (0.9-1.3) APTT (26.4-36.2) SECONDS Sodium 135 L (137-145) mmol/L Potassium 3.2 L (3.4-5.1) mmol/L Chloride 100 (98-107) mmol/L Carbon Dioxide 28 (22-32) mmol/L BUN 17 (9-20) mg/dL Creatinine 0.60 L (0.66-1.25) mg/dL Estimated GFR > 60.0 (>60) mL/min BUN/Creatinine Ratio 28.3 H (6-22) Glucose 150 H (70-100) mg/dL Calcium 7.9 L (8.4-10.2) mg/dL Total Bilirubin (0.2-1.3) mg/dL AST (17-59) IU/L ALT (21-72) IU/L Alkaline Phosphatase (38-126) U/L Total Protein (6.3-8.2) g/dL Albumin (3.5-5.0) g/dL Globulin (1.7-4.1) g/dL Albumin/Globulin Ratio (1.0-2.8) Lipase (23-300) U/L Procalcitonin 2.38 H (<0.5) ng/mL Urine Opiates Screen (Negative) Ur Oxycodone Screen (Negative) Urine Methadone Screen (Negative) Ur Barbiturates Screen (Negative) U Tricyclic Antidepress (Negative) Ur Phencyclidine Scrn (Negative) Ur Amphetamines Screen (Negative) U Methamphetamines Scrn (Negative) Ur MDMA Scrn (Ecstasy) (Negative) U Benzodiazepines Scrn (Negative) Urine Cocaine Screen (Negative) U Marijuana (THC) Screen (Negative) Ethyl Alcohol mg/dL Discharge Plan Departure Clinical Impression: Fracture of proximal end of left femur Qualifiers: Encounter type: initial encounter Fracture type: closed Qualified Code(s): S72.002A - Fracture of unspecified part of neck of left femur, initial encounter for closed fracture Interventions: ED Discharge Assessment Last Done: 04/08/19 16:17 Admit Date/Time: 04/08/19 17:01 Admit Provider: Melissa Wallace
--- NOTE | 2019-04-08 12:58 | ED_ITS ---
HPI - Extremity Injury (Lower) <JOS Acosta - Last Filed: 04/08/19 19:07> General Chief Complaint: Extremity Injury, Lower Stated Complaint: Fall, leg pain Time Seen by Provider: 04/08/19 12:47 Source: patient and EMS Mode of arrival: wheelchair Limitations: no limitations History of Present Illness HPI Narrative: The patient is a 59-year-old male smoker was running into the bank and fell. He complained of immediate left leg pain/ hip pain. The patient does have a history of IV drug use and uses heroin and opiates. He states he is unable to bear weight. He denies any specific injury to his left leg before hand. Denies blood thinners. He states he is supposed to be on some medication, but does not take any. He states that he is supposed to be on medication for his asthma. He states he had a CVA a year ago. 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 He states he has been clean for approximately 1 week. He was following with a prescriber for Suboxone, but is unable to identify where he is getting it. He presented by EMS. He denies hitting his head, loss of consciousness neck pain or any other pain. Related Data Home Medications Medication Instructions Recorded Confirmed albuterol sulfate 1 puff INHALATION PRN PRN 04/08/19 04/08/19 fluticasone propion-salmeterol 1 puff INHALATION BID 04/08/19 04/08/19 Previous Rx's Medication Instructions Recorded oxycodone 10 mg PO Q6H PRN #20 tab 04/12/19 Allergies Allergy/AdvReac Type Severity Reaction Status Date / Time amoxicillin [AMOXICILLIN] Allergy Unknown DOES NOT Verified 04/08/19 13:52 REMEMBER SOMETHING NOT GOOD Penicillins [PENICILLINS] Allergy Unknown CAN'T Verified 04/08/19 13:52 REMEMBER RX Review of Systems <JOS Acosta - Last Filed: 04/08/19 19:07> Review of Systems GENERAL: Denies chills, fatigue, malaise, fever, sweats. HEENT: Denies sinus pain, ear pain, sore throat, difficulty swallowing, dizziness. RESPIRATORY: See HPI CARDIOVASCULAR: Denies chest pain, palpitations, orthopnea, edema, GASTROINTESTINAL: Denies nausea, vomiting, abdominal pain, diarrhea, constipation, melena. : Denies dysuria, frequency, incontinence, hematuria, urinary retention. MUSCULOSKELETAL: See HPI SKIN: See HPI NEUROLOGIC: Denies weakness, headache, numbness, change in speech, confusion, seizures, incoordination. PSYCHIATRIC: No concerning psychosocial issues. 12 point review of systems is negative except for those stated above PFSH <GOKUL Acosta-BC - Last Filed: 04/08/19 19:07> Medical History Closed intertrochanteric fracture of left femur (Acute) Drug abuse, IV (Acute) Asthma (Chronic) Chronic back pain greater than 3 months duration (Chronic) Depression (Chronic) History of CVA (cerebrovascular accident) (Inactive) Surgical History History of hernia repair (Acute) Social History household members: friend(s) Smoking Status: Current some day smoker Social History household members: significant other Smoking Status: Current some day smoker Exam <GOKUL Acosta-BC - Last Filed: 04/08/19 19:07> Narrative Exam Narrative: GENERAL: Chronically ill-appearing thin man lying on stretcher HEAD: Atraumatic. Normocephalic. No temporal or scalp tenderness. EYES: Pupils equal round and reactive. Extraocular motions intact. No scleral icterus. No injection or drainage. ENT: Nose without bleeding, purulent drainage or septal hematoma. Throat without erythema, tonsillar hypertrophy or exudate. Uvula midline. Airway patent. NECK: Trachea midline. No JVD or lymphadenopathy. Supple, nontender, no meningeal signs. CARDIOVASCULAR: Regular rate and rhythm without murmurs, gallops, or rubs. RESPIRATORY: Breath sounds equal bilaterally. Diffuse inspiratory and expiratory wheezes bilaterally. No accessory muscle use. No retractions. GASTROINTESTINAL: Abdomen soft, non-tender, nondistended. No hepato-splenomegaly , or palpable masses. No guarding. EXTREMITIES: Pain to palpation left hip. Positive pedal pulses bilaterally. No pedal edema bilaterally. BACK: No point C-spine palpation. NEURO: Alert. Oriented. SKIN: IV drug use injection sites noted bilateral forearms. No discrete abscess is noted. Scabbing noted left forearm. Initial Vital Signs Initial Vital Signs: Vital Signs Temperature 98.0 F 04/08/19 11:15 Pulse Rate 64 04/08/19 11:15 Respiratory Rate 20 04/08/19 11:15 Blood Pressure 111/66 04/08/19 11:15 Pulse Oximetry 96 04/08/19 11:15 <Giovanna Ward MD - Last Filed: 04/14/19 07:24> Initial Vital Signs Initial Vital Signs: Vital Signs Temperature 98.0 F 04/08/19 11:15 Pulse Rate 64 04/08/19 11:15 Respiratory Rate 20 04/08/19 11:15 Blood Pressure 111/66 04/08/19 11:15 Pulse Oximetry 96 04/08/19 11:15 Course <JOS Acosta - Last Filed: 04/08/19 19:07> Orders Ordered: Discontinued Medications Al Hydrox/Mg Hydrox/Simethicone (Maalox Plus) 30 ml PO QID PRN PRN Reason: Dyspepsia Albuterol (Ventolin) 2.5 mg INH NOW PRN PRN Reason: Shortness Of Breath Or Wheezing Last Admin: 04/08/19 15:17 Dose: 2.5 mg Admin: 04/08/19 15:04 Dose: 2.5 mg Admin: 04/08/19 15:03 Dose: 2.5 mg Albuterol (Ventolin) 2.5 mg INH [id number] PRN PRN Reason: Shortness Of Breath Or Wheezing Last Admin: 04/09/19 12:06 Dose: 2.5 mg Albuterol/Ipratropium (Duoneb) 3 ml INH NOW ONE Stop: 04/08/19 14:53 Last Admin: 04/08/19 14:53 Dose: 3 ml Albuterol/Ipratropium (Duoneb) 3 ml INH [id number] ERIN Last Admin: 04/10/19 09:02 Dose: 3 ml Admin: 04/09/19 16:01 Dose: 3 ml Admin: 04/09/19 15:53 Dose: Not Given Admin: 04/09/19 08:41 Dose: 3 ml Admin: 04/08/19 19:26 Dose: 3 ml Albuterol/Ipratropium (Duoneb) 3 ml INH RTBID [facility] Last Admin: 04/12/19 05:14 Dose: 3 ml Admin: 04/11/19 17:37 Dose: 3 ml Admin: 04/11/19 07:40 Dose: 3 ml Admin: 04/10/19 17:43 Dose: 3 ml Bisacodyl (Dulcolax) 10 mg ME PRN PRN PRN Reason: Constipation Bupivacaine HCl/Epinephrine Bitart (Sensorcaine 0.5% W/ Epi (Pf)) 30 ml INJ INTRA-OP ONE Stop: 04/09/19 13:26 Last Admin: 04/09/19 13:25 Dose: 20 ml Docusate Sodium (Colace) 100 mg PO BID [facility] Last Admin: 04/08/19 22:32 Dose: 100 mg Docusate Sodium (Colace) 100 mg PO BID [facility] Last Admin: 04/09/19 09:17 Dose: Not Given Docusate Sodium (Colace) 100 mg PO BID [facility] Last Admin: 04/12/19 08:04 Dose: 100 mg Admin: 04/11/19 20:10 Dose: 100 mg Admin: 04/11/19 14:38 Dose: 100 mg Admin: 04/10/19 20:57 Dose: 100 mg Admin: 04/10/19 08:37 Dose: 100 mg Admin: 04/09/19 20:33 Dose: 100 mg Enoxaparin Sodium (Lovenox) 30 mg SUBCUT BID [facility] Stop: 04/19/19 21:01 Last Admin: 04/11/19 09:18 Dose: Not Given Admin: 04/10/19 20:52 Dose: 30 mg Admin: 04/10/19 08:38 Dose: 30 mg Fentanyl (Sublimaze) 100 mcg IV NOW ONE Stop: 04/09/19 12:02 Last Admin: 04/09/19 12:08 Dose: 50 mcg Admin: 04/09/19 12:00 Dose: 50 mcg Heparin Sodium (Porcine) (Heparin (Cl/Picc/Mid-Line)) 50 unit IV PRN PRN PRN Reason: Flush Heparin Sodium (Porcine) (Heparin (Cl/Picc/Mid-Line)) 50 unit IV BID [facility] Last Admin: 04/09/19 07:51 Dose: 50 unit Heparin Sodium (Porcine) (Heparin (Cl/Picc/Mid-Line)) 50 unit IV PRN PRN PRN Reason: Flush Hydromorphone HCl (Dilaudid) 1 mg IV NOW ONE Stop: 04/08/19 15:44 Last Admin: 04/08/19 16:14 Dose: 1 mg Hydroxyzine HCl (Vistaril) 25 mg IM NOW ONE Stop: 04/09/19 15:26 Last Admin: 04/09/19 15:29 Dose: 25 mg Lactated Ringer's (Lactated Ringers) 1,000 mls @ 100 mls/hr IV CONT ERIN Last Admin: 04/09/19 15:20 Dose: 100 mls/hr Infusion: 04/09/19 10:50 Dose: 100 mls/hr Admin: 04/09/19 00:50 Dose: 100 mls/hr Vancomycin HCl/Dextrose (Vancomycin) 1,000 mg in 200 mls @ 200 mls/hr IV NOW ONE Stop: 04/09/19 09:05 Last Infusion: 04/09/19 10:12 Dose: 200 mls/hr Admin: 04/09/19 08:34 Dose: 200 mls/hr Lactated Ringer's (Lactated Ringers) 1,000 mls @ 42 mls/hr IV CONT ERIN Last Infusion: 04/09/19 15:20 Dose: 0 mls/hr Admin: 04/09/19 11:30 Dose: 42 mls/hr Clindamycin Phosphate (Cleocin) 600 mg in 50 mls @ 50 mls/hr IV NOW ONE Stop: 04/09/19 12:30 Last Infusion: 04/09/19 12:54 Dose: 0 mls/hr Admin: 04/09/19 12:23 Dose: 50 mls/hr Lactated Ringer's (Lactated Ringers) 1,000 mls @ 125 mls/hr IV CONT ERIN Last Admin: 04/11/19 09:34 Dose: 125 mls/hr Infusion: 04/11/19 09:34 Dose: 125 mls/hr Admin: 04/11/19 01:51 Dose: 125 mls/hr Infusion: 04/11/19 01:51 Dose: 125 mls/hr Admin: 04/10/19 19:17 Dose: 125 mls/hr Infusion: 04/10/19 17:00 Dose: 125 mls/hr Admin: 04/10/19 08:50 Dose: 125 mls/hr Infusion: 04/10/19 08:50 Dose: 0 mls/hr Admin: 04/10/19 00:57 Dose: 125 mls/hr Infusion: 04/10/19 00:07 Dose: 125 mls/hr Admin: 04/09/19 16:07 Dose: 125 mls/hr Vancomycin HCl/Dextrose (Vancomycin) 1,000 mg in 200 mls @ 200 mls/hr IV Q12H [facility] Stop: 04/09/19 20:59 Last Admin: 04/09/19 20:30 Dose: 200 mls/hr Lidocaine HCl (Urojet) 5 ml TOP NOW ONE Stop: 04/08/19 12:13 Last Admin: 04/08/19 13:54 Dose: 5 ml Magnesium Hydroxide (Milk Of Magnesia) 30 ml PO BEDTIME [facility] Last Admin: 04/12/19 08:03 Dose: 30 ml Admin: 04/11/19 20:18 Dose: 30 ml Admin: 04/10/19 20:52 Dose: Not Given Admin: 04/09/19 20:37 Dose: 30 ml Metoclopramide HCl (Reglan) 10 mg IV Q8HR PRN PRN Reason: Nausea And Vomiting Last Admin: 04/09/19 08:35 Dose: 10 mg Metoclopramide HCl (Reglan) 10 mg IV Q6HR PRN PRN Reason: Nausea And Vomiting Last Admin: 04/11/19 09:17 Dose: 10 mg Admin: 04/10/19 08:41 Dose: 10 mg Morphine Sulfate (Morphine) 4 mg IV NOW ONE Stop: 04/08/19 13:45 Last Admin: 04/08/19 13:53 Dose: 4 mg Morphine Sulfate (Morphine) 4 mg IV NOW ONE Stop: 04/08/19 15:08 Last Admin: 04/08/19 15:08 Dose: 4 mg Morphine Sulfate (Morphine) 4 mg IV Q4HR PRN PRN Reason: Pain, Severe (7-10) Last Admin: 04/09/19 07:50 Dose: 4 mg Admin: 04/09/19 00:49 Dose: 4 mg Admin: 04/08/19 18:14 Dose: 4 mg Morphine Sulfate (Morphine) 2 mg IV NOW ONE Stop: 04/08/19 20:06 Last Admin: 04/08/19 20:11 Dose: 2 mg Morphine Sulfate (Morphine) 1 mg IV Q5M PRN PRN Reason: Pain, Mild (1-3) Morphine Sulfate (Morphine) 2 mg IV Q5M PRN PRN Reason: Pain, Moderate (4-6) Last Admin: 04/09/19 14:49 Dose: 2 mg Morphine Sulfate (Morphine) 4 mg IV Q5M PRN PRN Reason: Pain, Severe (7-10) Last Admin: 04/09/19 15:14 Dose: 4 mg Admin: 04/09/19 15:03 Dose: 4 mg Morphine Sulfate (Morphine) 1.5 mg IV Q1HR PRN PRN Reason: Pain, Moderate (4-6) Last Admin: 04/11/19 09:33 Dose: 1.5 mg Admin: 04/11/19 01:57 Dose: 1.5 mg Naloxone HCl (Narcan) 0.2 mg IV Q2MIN PRN PRN Reason: Opiate Reversal Naloxone HCl (Narcan) 0.2 mg IV Q2MIN PRN PRN Reason: Opiate Reversal Naloxone HCl (Narcan) 0.2 mg IV Q2MIN PRN PRN Reason: Opiate Reversal Nicotine (Nicoderm) 14 mg TOP NOW ONE Stop: 04/09/19 00:04 Last Admin: 04/09/19 00:50 Dose: 14 mg Ondansetron HCl (Zofran) 4 mg IV NOW ONE Stop: 04/08/19 13:45 Last Admin: 04/08/19 13:53 Dose: 4 mg Ondansetron HCl (Zofran) 4 mg IV Q4HR PRN PRN Reason: Nausea And Vomiting Last Admin: 04/09/19 06:34 Dose: 4 mg Ondansetron HCl (Zofran Odt) 4 mg PO Q8HR PRN PRN Reason: Nausea And Vomiting Ondansetron HCl (Zofran) 4 mg IV Q8HR PRN PRN Reason: Nausea And Vomiting Ondansetron HCl (Zofran) 4 mg IV Q4HR PRN PRN Reason: Nausea And Vomiting Last Admin: 04/11/19 01:43 Dose: 4 mg Admin: 04/10/19 06:55 Dose: 4 mg Oxycodone HCl (Percolone) 10 mg PO Q3HR PRN PRN Reason: Pain, Moderate (4-6) Last Admin: 04/08/19 18:56 Dose: 10 mg Oxycodone HCl (Percolone) 10 mg PO Q4HR [facility] Last Admin: 04/08/19 21:20 Dose: Not Given Oxycodone HCl (Percolone) 10 mg PO Q4HR PRN PRN Reason: Pain, Moderate (4-6) Last Admin: 04/09/19 04:13 Dose: 10 mg Admin: 04/08/19 22:47 Dose: 10 mg Oxycodone HCl (Percolone) 5 mg PO Q3HR PRN PRN Reason: Pain, Moderate (4-6) Last Admin: 04/10/19 19:16 Dose: 5 mg Admin: 04/10/19 14:59 Dose: 5 mg Admin: 04/10/19 08:37 Dose: 5 mg Oxycodone HCl (Percolone) 10 mg PO Q3HR PRN PRN Reason: Pain, Severe (7-10) Last Admin: 04/12/19 09:40 Dose: 10 mg Admin: 04/12/19 05:43 Dose: 10 mg Admin: 04/12/19 05:35 Dose: 10 mg Admin: 04/11/19 23:56 Dose: 10 mg Admin: 04/11/19 20:14 Dose: 10 mg Admin: 04/11/19 17:07 Dose: 10 mg Admin: 04/11/19 14:37 Dose: 10 mg Admin: 04/11/19 03:09 Dose: 10 mg Admin: 04/10/19 22:12 Dose: 10 mg Oxycodone/Acetaminophen (Percocet 5/325) 1 tab PO Q30MIN PRN PRN Reason: Mild or moderate pain Pantoprazole Sodium (Protonix) 40 mg IV DAILY [facility] Last Admin: 04/12/19 08:03 Dose: 40 mg Potassium Chloride (Klor-Con M10) 40 meq PO NOW ONE Stop: 04/13/19 10:07 Sodium Chloride (Normal Saline 0.9% Flush) 10 ml IV PRN PRN PRN Reason: Flush Sodium Chloride (Normal Saline 0.9% Flush) 10 ml IV BID [facility] Last Admin: 04/09/19 07:51 Dose: 10 ml Vital Signs - 8 hr 04/08/19 11:15 04/08/19 14:53 04/08/19 15:00 Temperature 98.0 F Pulse Rate 64 90 108 H Respiratory Rate 20 18 20 Blood Pressure 111/66 Blood Pressure [Left Arm] 141/98 H Pulse Oximetry 96 91 04/08/19 15:04 04/08/19 16:17 Temperature Pulse Rate 91 H 108 H Respiratory Rate 13 20 Blood Pressure 142/77 H Blood Pressure [Left Arm] Pulse Oximetry 97 93 <Giovanna Ward MD - Last Filed: 04/14/19 07:24> Orders Ordered: Discontinued Medications Al Hydrox/Mg Hydrox/Simethicone (Maalox Plus) 30 ml PO QID PRN PRN Reason: Dyspepsia Albuterol (Ventolin) 2.5 mg INH NOW PRN PRN Reason: Shortness Of Breath Or Wheezing Last Admin: 04/08/19 15:17 Dose: 2.5 mg Admin: 04/08/19 15:04 Dose: 2.5 mg Admin: 04/08/19 15:03 Dose: 2.5 mg Albuterol (Ventolin) 2.5 mg INH [id number] PRN PRN Reason: Shortness Of Breath Or Wheezing Last Admin: 04/09/19 12:06 Dose: 2.5 mg Albuterol/Ipratropium (Duoneb) 3 ml INH NOW ONE Stop: 04/08/19 14:53 Last Admin: 04/08/19 14:53 Dose: 3 ml Albuterol/Ipratropium (Duoneb) 3 ml INH [id number] [facility] Last Admin: 04/10/19 09:02 Dose: 3 ml Admin: 04/09/19 16:01 Dose: 3 ml Admin: 04/09/19 15:53 Dose: Not Given Admin: 04/09/19 08:41 Dose: 3 ml Admin: 04/08/19 19:26 Dose: 3 ml Albuterol/Ipratropium (Duoneb) 3 ml INH RTBID [facility] Last Admin: 04/12/19 05:14 Dose: 3 ml Admin: 04/11/19 17:37 Dose: 3 ml Admin: 04/11/19 07:40 Dose: 3 ml Admin: 04/10/19 17:43 Dose: 3 ml Bisacodyl (Dulcolax) 10 mg ME PRN PRN PRN Reason: Constipation Bupivacaine HCl/Epinephrine Bitart (Sensorcaine 0.5% W/ Epi (Pf)) 30 ml INJ INTRA-OP ONE Stop: 04/09/19 13:26 Last Admin: 04/09/19 13:25 Dose: 20 ml Docusate Sodium (Colace) 100 mg PO BID [facility] Last Admin: 04/08/19 22:32 Dose: 100 mg Docusate Sodium (Colace) 100 mg PO BID [facility] Last Admin: 04/09/19 09:17 Dose: Not Given Docusate Sodium (Colace) 100 mg PO BID [facility] Last Admin: 04/12/19 08:04 Dose: 100 mg Admin: 04/11/19 20:10 Dose: 100 mg Admin: 04/11/19 14:38 Dose: 100 mg Admin: 04/10/19 20:57 Dose: 100 mg Admin: 04/10/19 08:37 Dose: 100 mg Admin: 04/09/19 20:33 Dose: 100 mg Enoxaparin Sodium (Lovenox) 30 mg SUBCUT BID [facility] Stop: 04/19/19 21:01 Last Admin: 04/11/19 09:18 Dose: Not Given Admin: 04/10/19 20:52 Dose: 30 mg Admin: 04/10/19 08:38 Dose: 30 mg Fentanyl (Sublimaze) 100 mcg IV NOW ONE Stop: 04/09/19 12:02 Last Admin: 04/09/19 12:08 Dose: 50 mcg Admin: 04/09/19 12:00 Dose: 50 mcg Heparin Sodium (Porcine) (Heparin (Cl/Picc/Mid-Line)) 50 unit IV PRN PRN PRN Reason: Flush Heparin Sodium (Porcine) (Heparin (Cl/Picc/Mid-Line)) 50 unit IV BID [facility] Last Admin: 04/09/19 07:51 Dose: 50 unit Heparin Sodium (Porcine) (Heparin (Cl/Picc/Mid-Line)) 50 unit IV PRN PRN PRN Reason: Flush Hydromorphone HCl (Dilaudid) 1 mg IV NOW ONE Stop: 04/08/19 15:44 Last Admin: 04/08/19 16:14 Dose: 1 mg Hydroxyzine HCl (Vistaril) 25 mg IM NOW ONE Stop: 04/09/19 15:26 Last Admin: 04/09/19 15:29 Dose: 25 mg Lactated Ringer's (Lactated Ringers) 1,000 mls @ 100 mls/hr IV CONT ERIN Last Admin: 04/09/19 15:20 Dose: 100 mls/hr Infusion: 04/09/19 10:50 Dose: 100 mls/hr Admin: 04/09/19 00:50 Dose: 100 mls/hr Vancomycin HCl/Dextrose (Vancomycin) 1,000 mg in 200 mls @ 200 mls/hr IV NOW ONE Stop: 04/09/19 09:05 Last Infusion: 04/09/19 10:12 Dose: 200 mls/hr Admin: 04/09/19 08:34 Dose: 200 mls/hr Lactated Ringer's (Lactated Ringers) 1,000 mls @ 42 mls/hr IV CONT ERIN Last Infusion: 04/09/19 15:20 Dose: 0 mls/hr Admin: 04/09/19 11:30 Dose: 42 mls/hr Clindamycin Phosphate (Cleocin) 600 mg in 50 mls @ 50 mls/hr IV NOW ONE Stop: 04/09/19 12:30 Last Infusion: 04/09/19 12:54 Dose: 0 mls/hr Admin: 04/09/19 12:23 Dose: 50 mls/hr Lactated Ringer's (Lactated Ringers) 1,000 mls @ 125 mls/hr IV CONT ERIN Last Admin: 04/11/19 09:34 Dose: 125 mls/hr Infusion: 04/11/19 09:34 Dose: 125 mls/hr Admin: 04/11/19 01:51 Dose: 125 mls/hr Infusion: 04/11/19 01:51 Dose: 125 mls/hr Admin: 04/10/19 19:17 Dose: 125 mls/hr Infusion: 04/10/19 17:00 Dose: 125 mls/hr Admin: 04/10/19 08:50 Dose: 125 mls/hr Infusion: 04/10/19 08:50 Dose: 0 mls/hr Admin: 04/10/19 00:57 Dose: 125 mls/hr Infusion: 04/10/19 00:07 Dose: 125 mls/hr Admin: 04/09/19 16:07 Dose: 125 mls/hr Vancomycin HCl/Dextrose (Vancomycin) 1,000 mg in 200 mls @ 200 mls/hr IV Q12H [facility] Stop: 04/09/19 20:59 Last Admin: 04/09/19 20:30 Dose: 200 mls/hr Lidocaine HCl (Urojet) 5 ml TOP NOW ONE Stop: 04/08/19 12:13 Last Admin: 04/08/19 13:54 Dose: 5 ml Magnesium Hydroxide (Milk Of Magnesia) 30 ml PO BEDTIME [facility] Last Admin: 04/12/19 08:03 Dose: 30 ml Admin: 04/11/19 20:18 Dose: 30 ml Admin: 04/10/19 20:52 Dose: Not Given Admin: 04/09/19 20:37 Dose: 30 ml Metoclopramide HCl (Reglan) 10 mg IV Q8HR PRN PRN Reason: Nausea And Vomiting Last Admin: 04/09/19 08:35 Dose: 10 mg Metoclopramide HCl (Reglan) 10 mg IV Q6HR PRN PRN Reason: Nausea And Vomiting Last Admin: 04/11/19 09:17 Dose: 10 mg Admin: 04/10/19 08:41 Dose: 10 mg Morphine Sulfate (Morphine) 4 mg IV NOW ONE Stop: 04/08/19 13:45 Last Admin: 04/08/19 13:53 Dose: 4 mg Morphine Sulfate (Morphine) 4 mg IV NOW ONE Stop: 04/08/19 15:08 Last Admin: 04/08/19 15:08 Dose: 4 mg Morphine Sulfate (Morphine) 4 mg IV Q4HR PRN PRN Reason: Pain, Severe (7-10) Last Admin: 04/09/19 07:50 Dose: 4 mg Admin: 04/09/19 00:49 Dose: 4 mg Admin: 04/08/19 18:14 Dose: 4 mg Morphine Sulfate (Morphine) 2 mg IV NOW ONE Stop: 04/08/19 20:06 Last Admin: 04/08/19 20:11 Dose: 2 mg Morphine Sulfate (Morphine) 1 mg IV Q5M PRN PRN Reason: Pain, Mild (1-3) Morphine Sulfate (Morphine) 2 mg IV Q5M PRN PRN Reason: Pain, Moderate (4-6) Last Admin: 04/09/19 14:49 Dose: 2 mg Morphine Sulfate (Morphine) 4 mg IV Q5M PRN PRN Reason: Pain, Severe (7-10) Last Admin: 04/09/19 15:14 Dose: 4 mg Admin: 04/09/19 15:03 Dose: 4 mg Morphine Sulfate (Morphine) 1.5 mg IV Q1HR PRN PRN Reason: Pain, Moderate (4-6) Last Admin: 04/11/19 09:33 Dose: 1.5 mg Admin: 04/11/19 01:57 Dose: 1.5 mg Naloxone HCl (Narcan) 0.2 mg IV Q2MIN PRN PRN Reason: Opiate Reversal Naloxone HCl (Narcan) 0.2 mg IV Q2MIN PRN PRN Reason: Opiate Reversal Naloxone HCl (Narcan) 0.2 mg IV Q2MIN PRN PRN Reason: Opiate Reversal Nicotine (Nicoderm) 14 mg TOP NOW ONE Stop: 04/09/19 00:04 Last Admin: 04/09/19 00:50 Dose: 14 mg Ondansetron HCl (Zofran) 4 mg IV NOW ONE Stop: 04/08/19 13:45 Last Admin: 04/08/19 13:53 Dose: 4 mg Ondansetron HCl (Zofran) 4 mg IV Q4HR PRN PRN Reason: Nausea And Vomiting Last Admin: 04/09/19 06:34 Dose: 4 mg Ondansetron HCl (Zofran Odt) 4 mg PO Q8HR PRN PRN Reason: Nausea And Vomiting Ondansetron HCl (Zofran) 4 mg IV Q8HR PRN PRN Reason: Nausea And Vomiting Ondansetron HCl (Zofran) 4 mg IV Q4HR PRN PRN Reason: Nausea And Vomiting Last Admin: 04/11/19 01:43 Dose: 4 mg Admin: 04/10/19 06:55 Dose: 4 mg Oxycodone HCl (Percolone) 10 mg PO Q3HR PRN PRN Reason: Pain, Moderate (4-6) Last Admin: 04/08/19 18:56 Dose: 10 mg Oxycodone HCl (Percolone) 10 mg PO Q4HR ERIN Last Admin: 04/08/19 21:20 Dose: Not Given Oxycodone HCl (Percolone) 10 mg PO Q4HR PRN PRN Reason: Pain, Moderate (4-6) Last Admin: 04/09/19 04:13 Dose: 10 mg Admin: 04/08/19 22:47 Dose: 10 mg Oxycodone HCl (Percolone) 5 mg PO Q3HR PRN PRN Reason: Pain, Moderate (4-6) Last Admin: 04/10/19 19:16 Dose: 5 mg Admin: 04/10/19 14:59 Dose: 5 mg Admin: 04/10/19 08:37 Dose: 5 mg Oxycodone HCl (Percolone) 10 mg PO Q3HR PRN PRN Reason: Pain, Severe (7-10) Last Admin: 04/12/19 09:40 Dose: 10 mg Admin: 04/12/19 05:43 Dose: 10 mg Admin: 04/12/19 05:35 Dose: 10 mg Admin: 04/11/19 23:56 Dose: 10 mg Admin: 04/11/19 20:14 Dose: 10 mg Admin: 04/11/19 17:07 Dose: 10 mg Admin: 04/11/19 14:37 Dose: 10 mg Admin: 04/11/19 03:09 Dose: 10 mg Admin: 04/10/19 22:12 Dose: 10 mg Oxycodone/Acetaminophen (Percocet 5/325) 1 tab PO Q30MIN PRN PRN Reason: Mild or moderate pain Pantoprazole Sodium (Protonix) 40 mg IV DAILY [facility] Last Admin: 04/12/19 08:03 Dose: 40 mg Potassium Chloride (Klor-Con M10) 40 meq PO NOW ONE Stop: 04/13/19 10:07 Sodium Chloride (Normal Saline 0.9% Flush) 10 ml IV PRN PRN PRN Reason: Flush Sodium Chloride (Normal Saline 0.9% Flush) 10 ml IV BID [facility] Last Admin: 04/09/19 07:51 Dose: 10 ml Vital Signs - 8 hr 04/08/19 11:15 04/08/19 14:53 04/08/19 15:00 Temperature 98.0 F Pulse Rate 64 90 108 H Respiratory Rate 20 18 20 Blood Pressure 111/66 Blood Pressure [Left Arm] 141/98 H Pulse Oximetry 96 91 04/08/19 15:04 04/08/19 16:17 Temperature Pulse Rate 91 H 108 H Respiratory Rate 13 20 Blood Pressure 142/77 H Blood Pressure [Left Arm] Pulse Oximetry 97 93 MDM - Extremity Injury (Lower) <Mya Henderson [employer] - Last Filed: 04/08/19 19:07> Lab Data Result diagrams: 04/12/19 05:50 04/12/19 05:50 Lab Results 04/08/19 04/08/19 04/08/19 Range/Units 12:12 14:05 14:05 WBC 11.8 H (4.5-11.0) X10^3/uL RBC 5.13 (4.5-5.9) X10^6/uL Hgb 12.7 L (13.5-17.5) g/dL Hct 39.2 L (41-53) % MCV 76.4 L (80-100) fL MCH 24.8 L (26-34) PG MCHC 32.5 (30-36) % RDW 16.0 H (11.6-14.8) % Plt Count 217 (150-400) X10^3/uL Neut % (Auto) 85.7 H (50-75) % Lymph % (Auto) 9.0 L (25-40) % Hale % (Auto) 4.5 (3-14) % Eos % (Auto) 0.6 L (2-4) % Baso % (Auto) 0.2 (0-2) % Neut # (Auto) 28949 H (8498-2303) /uL Lymph # (Auto) 1100 (6207-7940) /uL Hale # (Auto) 500 (0-900) /uL Eos # (Auto) 100 (0-450) /uL Baso # (Auto) 0 (0-100) /uL PT 11.4 (10.1-12.7) SECONDS INR 1.0 (0.9-1.3) APTT 30 (26.4-36.2) SECONDS Sodium (137-145) mmol/L Potassium (3.4-5.1) mmol/L Chloride (98-107) mmol/L Carbon Dioxide (22-32) mmol/L BUN (9-20) mg/dL Creatinine (0.66-1.25) mg/dL Estimated GFR (>60) mL/min BUN/Creatinine Ratio (6-22) Glucose (70-100) mg/dL Calcium (8.4-10.2) mg/dL Total Bilirubin (0.2-1.3) mg/dL AST (17-59) IU/L ALT (21-72) IU/L Alkaline Phosphatase (38-126) U/L Total Protein (6.3-8.2) g/dL Albumin (3.5-5.0) g/dL Globulin (1.7-4.1) g/dL Albumin/Globulin Ratio (1.0-2.8) Lipase (23-300) U/L Procalcitonin (<0.5) ng/mL Urine Opiates Screen Positive H (Negative) Ur Oxycodone Screen Positive H (Negative) Urine Methadone Screen Negative (Negative) Ur Barbiturates Screen Negative (Negative) U Tricyclic Antidepress Negative (Negative) Ur Phencyclidine Scrn Negative (Negative) Ur Amphetamines Screen Positive H (Negative) U Methamphetamines Scrn Positive H (Negative) Ur MDMA Scrn (Ecstasy) Negative (Negative) U Benzodiazepines Scrn Negative (Negative) Urine Cocaine Screen Negative (Negative) U Marijuana (THC) Screen Negative (Negative) Ethyl Alcohol mg/dL 04/08/19 04/08/19 04/09/19 Range/Units 14:05 14:05 05:25 WBC 11.1 H (4.5-11.0) X10^3/uL RBC 5.01 (4.5-5.9) X10^6/uL Hgb 12.7 L (13.5-17.5) g/dL Hct 38.3 L (41-53) % MCV 76.5 L (80-100) fL MCH 25.4 L (26-34) PG MCHC 33.1 (30-36) % RDW 15.9 H (11.6-14.8) % Plt Count 223 (150-400) X10^3/uL Neut % (Auto) 83.7 H (50-75) % Lymph % (Auto) 10.4 L (25-40) % Hale % (Auto) 5.7 (3-14) % Eos % (Auto) 0.2 L (2-4) % Baso % (Auto) 0.0 (0-2) % Neut # (Auto) 9300 H (2466-0477) /uL Lymph # (Auto) 1200 (9141-3033) /uL Hale # (Auto) 600 (0-900) /uL Eos # (Auto) 0 (0-450) /uL Baso # (Auto) 0 (0-100) /uL PT (10.1-12.7) SECONDS INR (0.9-1.3) APTT (26.4-36.2) SECONDS Sodium 138 (137-145) mmol/L Potassium 4.1 (3.4-5.1) mmol/L Chloride 101 (98-107) mmol/L Carbon Dioxide 30 (22-32) mmol/L BUN 13 (9-20) mg/dL Creatinine 0.60 L (0.66-1.25) mg/dL Estimated GFR > 60.0 (>60) mL/min BUN/Creatinine Ratio 21.7 (6-22) Glucose 106 H (70-100) mg/dL Calcium 8.6 (8.4-10.2) mg/dL Total Bilirubin 0.7 (0.2-1.3) mg/dL AST 87 H (17-59) IU/L ALT 110 H (21-72) IU/L Alkaline Phosphatase 105 (38-126) U/L Total Protein 7.1 (6.3-8.2) g/dL Albumin 3.7 (3.5-5.0) g/dL Globulin 3.4 (1.7-4.1) g/dL Albumin/Globulin Ratio 1.1 (1.0-2.8) Lipase 36 (23-300) U/L Procalcitonin (<0.5) ng/mL Urine Opiates Screen (Negative) Ur Oxycodone Screen (Negative) Urine Methadone Screen (Negative) Ur Barbiturates Screen (Negative) U Tricyclic Antidepress (Negative) Ur Phencyclidine Scrn (Negative) Ur Amphetamines Screen (Negative) U Methamphetamines Scrn (Negative) Ur MDMA Scrn (Ecstasy) (Negative) U Benzodiazepines Scrn (Negative) Urine Cocaine Screen (Negative) U Marijuana (THC) Screen (Negative) Ethyl Alcohol < 10 mg/dL 04/09/19 04/09/19 04/10/19 Range/Units 05:25 05:25 05:21 WBC 19.5 H D (4.5-11.0) X10^3/uL RBC 4.60 (4.5-5.9) X10^6/uL Hgb 11.6 L (13.5-17.5) g/dL Hct 34.9 L (41-53) % MCV 75.8 L (80-100) fL MCH 25.2 L (26-34) PG MCHC 33.2 (30-36) % RDW 16.1 H (11.6-14.8) % Plt Count 250 (150-400) X10^3/uL Neut % (Auto) (50-75) % Lymph % (Auto) (25-40) % Hale % (Auto) (3-14) % Eos % (Auto) (2-4) % Baso % (Auto) (0-2) % Neut # (Auto) (2198-8556) /uL Lymph # (Auto) (4724-5091) /uL Hale # (Auto) (0-900) /uL Eos # (Auto) (0-450) /uL Baso # (Auto) (0-100) /uL PT (10.1-12.7) SECONDS INR (0.9-1.3) APTT 30 (26.4-36.2) SECONDS Sodium 135 L (137-145) mmol/L Potassium 4.0 (3.4-5.1) mmol/L Chloride 98 (98-107) mmol/L Carbon Dioxide 32 (22-32) mmol/L BUN 11 (9-20) mg/dL Creatinine 0.50 L (0.66-1.25) mg/dL Estimated GFR > 60.0 (>60) mL/min BUN/Creatinine Ratio 22.0 (6-22) Glucose 116 H (70-100) mg/dL Calcium 8.6 (8.4-10.2) mg/dL Total Bilirubin 1.0 (0.2-1.3) mg/dL AST 66 H (17-59) IU/L ALT 90 H (21-72) IU/L Alkaline Phosphatase 105 (38-126) U/L Total Protein 7.0 (6.3-8.2) g/dL Albumin 3.6 (3.5-5.0) g/dL Globulin 3.4 (1.7-4.1) g/dL Albumin/Globulin Ratio 1.1 (1.0-2.8) Lipase (23-300) U/L Procalcitonin (<0.5) ng/mL Urine Opiates Screen (Negative) Ur Oxycodone Screen (Negative) Urine Methadone Screen (Negative) Ur Barbiturates Screen (Negative) U Tricyclic Antidepress (Negative) Ur Phencyclidine Scrn (Negative) Ur Amphetamines Screen (Negative) U Methamphetamines Scrn (Negative) Ur MDMA Scrn (Ecstasy) (Negative) U Benzodiazepines Scrn (Negative) Urine Cocaine Screen (Negative) U Marijuana (THC) Screen (Negative) Ethyl Alcohol mg/dL 04/11/19 04/11/19 04/12/19 Range/Units 05:58 14:30 05:50 WBC 13.3 H 14.3 H 18.2 H (4.5-11.0) X10^3/uL RBC 3.81 L 4.16 L 3.97 L (4.5-5.9) X10^6/uL Hgb 10.0 L 10.6 L 10.2 L (13.5-17.5) g/dL Hct 29.0 L 31.8 L 30.5 L (41-53) % MCV 76.1 L 76.6 L 76.7 L (80-100) fL MCH 26.3 25.4 L 25.8 L (26-34) PG MCHC 34.5 33.2 33.6 (30-36) % RDW 16.0 H 15.8 H 16.0 H (11.6-14.8) % Plt Count 209 253 301 (150-400) X10^3/uL Neut % (Auto) 84.4 H 83.2 H 71.8 (50-75) % Lymph % (Auto) 8.6 L 8.6 L 18.2 L (25-40) % Hale % (Auto) 6.7 8.0 9.4 (3-14) % Eos % (Auto) 0.1 L 0.0 L 0.4 L (2-4) % Baso % (Auto) 0.2 0.2 0.2 (0-2) % Neut # (Auto) 29404 H 90140 H 82413 H (5287-4022) /uL Lymph # (Auto) 1100 1200 3300 (1258-0168) /uL Hale # (Auto) 900 1100 H 1700 H (0-900) /uL Eos # (Auto) 0 0 100 (0-450) /uL Baso # (Auto) 0 0 0 (0-100) /uL PT (10.1-12.7) SECONDS INR (0.9-1.3) APTT (26.4-36.2) SECONDS Sodium (137-145) mmol/L Potassium (3.4-5.1) mmol/L Chloride (98-107) mmol/L Carbon Dioxide (22-32) mmol/L BUN (9-20) mg/dL Creatinine (0.66-1.25) mg/dL Estimated GFR (>60) mL/min BUN/Creatinine Ratio (6-22) Glucose (70-100) mg/dL Calcium (8.4-10.2) mg/dL Total Bilirubin (0.2-1.3) mg/dL AST (17-59) IU/L ALT (21-72) IU/L Alkaline Phosphatase (38-126) U/L Total Protein (6.3-8.2) g/dL Albumin (3.5-5.0) g/dL Globulin (1.7-4.1) g/dL Albumin/Globulin Ratio (1.0-2.8) Lipase (23-300) U/L Procalcitonin (<0.5) ng/mL Urine Opiates Screen (Negative) Ur Oxycodone Screen (Negative) Urine Methadone Screen (Negative) Ur Barbiturates Screen (Negative) U Tricyclic Antidepress (Negative) Ur Phencyclidine Scrn (Negative) Ur Amphetamines Screen (Negative) U Methamphetamines Scrn (Negative) Ur MDMA Scrn (Ecstasy) (Negative) U Benzodiazepines Scrn (Negative) Urine Cocaine Screen (Negative) U Marijuana (THC) Screen (Negative) Ethyl Alcohol mg/dL 04/12/19 04/12/19 Range/Units 05:50 05:50 WBC (4.5-11.0) X10^3/uL RBC (4.5-5.9) X10^6/uL Hgb (13.5-17.5) g/dL Hct (41-53) % MCV (80-100) fL MCH (26-34) PG MCHC (30-36) % RDW (11.6-14.8) % Plt Count (150-400) X10^3/uL Neut % (Auto) (50-75) % Lymph % (Auto) (25-40) % Hale % (Auto) (3-14) % Eos % (Auto) (2-4) % Baso % (Auto) (0-2) % Neut # (Auto) (8098-4306) /uL Lymph # (Auto) (4494-9433) /uL Hale # (Auto) (0-900) /uL Eos # (Auto) (0-450) /uL Baso # (Auto) (0-100) /uL PT (10.1-12.7) SECONDS INR (0.9-1.3) APTT (26.4-36.2) SECONDS Sodium 135 L (137-145) mmol/L Potassium 3.2 L (3.4-5.1) mmol/L Chloride 100 (98-107) mmol/L Carbon Dioxide 28 (22-32) mmol/L BUN 17 (9-20) mg/dL Creatinine 0.60 L (0.66-1.25) mg/dL Estimated GFR > 60.0 (>60) mL/min BUN/Creatinine Ratio 28.3 H (6-22) Glucose 150 H (70-100) mg/dL Calcium 7.9 L (8.4-10.2) mg/dL Total Bilirubin (0.2-1.3) mg/dL AST (17-59) IU/L ALT (21-72) IU/L Alkaline Phosphatase (38-126) U/L Total Protein (6.3-8.2) g/dL Albumin (3.5-5.0) g/dL Globulin (1.7-4.1) g/dL Albumin/Globulin Ratio (1.0-2.8) Lipase (23-300) U/L Procalcitonin 2.38 H (<0.5) ng/mL Urine Opiates Screen (Negative) Ur Oxycodone Screen (Negative) Urine Methadone Screen (Negative) Ur Barbiturates Screen (Negative) U Tricyclic Antidepress (Negative) Ur Phencyclidine Scrn (Negative) Ur Amphetamines Screen (Negative) U Methamphetamines Scrn (Negative) Ur MDMA Scrn (Ecstasy) (Negative) U Benzodiazepines Scrn (Negative) Urine Cocaine Screen (Negative) U Marijuana (THC) Screen (Negative) Ethyl Alcohol mg/dL Imaging Data femur xray : Radiologist's impression: [address] [address] XRay Report Signed Patient: Krysta Ramesh#: [id number] : 1960Acct:[id number] Age/Sex: 59 / MDate of Service: 04/08/19 Loc: ED Accession Number: [id number] Procedure: XR femur LT min 2V Ordering Provider: Giovanna Ward MD PROCEDURE: XR FEMUR LT MIN 2V INDICATIONS: injury, pain, fall TECHNIQUE: 4 views of the femur were acquired. COMPARISON: None. FINDINGS: Bones: Comminuted fracture involving the intertrochanteric left femur and base of the left femoral neck. Femoral head appears well-seated within the left acetabulum. Distal femur appears intact. Soft tissues: No suspicious soft tissue calcifications or masses. IMPRESSION: Proximal left femur fracture as above Dictated by: Abhijeet Singh M.D. on 04/08/2019 at 12:35 Approved by: Abhijeet Singh M.D. on 04/08/2019 at 12:37 Chest x-ray: Radiologist's impression: [address] [address] XRay Report Signed Patient: Krysta Ramesh#: [id number] : 1960Acct:[id number] Age/Sex: 59 / MDate of Service: 04/08/19 Loc: ED Accession Number: [id number] Procedure: XR chest 1V Ordering Provider: Giovanna Ward MD PROCEDURE: XR CHEST 1V INDICATIONS: chest pain TECHNIQUE: One view of the chest was acquired. COMPARISON: None. FINDINGS: Surgical changes and devices: Left arm PICC is present, tip of which is in the mid SVC. Lungs and pleura: Lungs are clear. No pleural effusions or pneumothorax. Mediastinum: Mediastinal contours appear normal. Heart size is normal. Bones and chest wall: No suspicious bony lesions. Overlying soft tissues appear unremarkable. IMPRESSION: No acute process. Dictated by: Jose Weldon M.D. on 04/08/2019 at 13:32 Approved by: Jose Weldon M.D. on 04/08/2019 at 13:33 MDM Narrative Medical decision making narrative: The patient is a 59-year-old male who presents with chief complaint of hip pain. He has a left proximal femur fracture. After this was found, a modified trauma was activated on the patient as he has a long but fracture. I spoke with Dr. Bruno from [facility], who reviewed the patient's films and recommended he go to surgery in the morning as his last oral intake was 2 hours prior to arrival. Given his history of asthma as well as IV drug use, he suggested that the patient go to Medicine Service. I spoke with Dr. Wallace who was kind enough to admit the patient to inpatient hospitalist service. He did have an EKG as well as a chest x-ray for preoperative management. The patient was given morphine as well as a single dose of Dilaudid throughout his stay in the emergency department for pain. His labs were grossly normal. His drug screen came back positive for opiates, oxycodone and methamphetamine. As per Dr. wallace's request, blood cultures were ordered prior to patient admission. Dr. Bruno evaluated the patient the emergency department. He remains nontoxic throughout his stay in the emergency department. He was found to be wheezy, which resolved with nebul izers. <Giovanna Ward MD - Last Filed: 04/14/19 07:24> Lab Data Lab Results 04/08/19 04/08/19 04/08/19 Range/Units 12:12 14:05 14:05 WBC 11.8 H (4.5-11.0) X10^3/uL RBC 5.13 (4.5-5.9) X10^6/uL Hgb 12.7 L (13.5-17.5) g/dL Hct 39.2 L (41-53) % MCV 76.4 L (80-100) fL MCH 24.8 L (26-34) PG MCHC 32.5 (30-36) % RDW 16.0 H (11.6-14.8) % Plt Count 217 (150-400) X10^3/uL Neut % (Auto) 85.7 H (50-75) % Lymph % (Auto) 9.0 L (25-40) % Hale % (Auto) 4.5 (3-14) % Eos % (Auto) 0.6 L (2-4) % Baso % (Auto) 0.2 (0-2) % Neut # (Auto) 29766 H (9475-2916) /uL Lymph # (Auto) 1100 (1976-4349) /uL Hale # (Auto) 500 (0-900) /uL Eos # (Auto) 100 (0-450) /uL Baso # (Auto) 0 (0-100) /uL PT 11.4 (10.1-12.7) SECONDS INR 1.0 (0.9-1.3) APTT 30 (26.4-36.2) SECONDS Sodium (137-145) mmol/L Potassium (3.4-5.1) mmol/L Chloride (98-107) mmol/L Carbon Dioxide (22-32) mmol/L BUN (9-20) mg/dL Creatinine (0.66-1.25) mg/dL Estimated GFR (>60) mL/min BUN/Creatinine Ratio (6-22) Glucose (70-100) mg/dL Calcium (8.4-10.2) mg/dL Total Bilirubin (0.2-1.3) mg/dL AST (17-59) IU/L ALT (21-72) IU/L Alkaline Phosphatase (38-126) U/L Total Protein (6.3-8.2) g/dL Albumin (3.5-5.0) g/dL Globulin (1.7-4.1) g/dL Albumin/Globulin Ratio (1.0-2.8) Lipase (23-300) U/L Procalcitonin (<0.5) ng/mL Urine Opiates Screen Positive H (Negative) Ur Oxycodone Screen Positive H (Negative) Urine Methadone Screen Negative (Negative) Ur Barbiturates Screen Negative (Negative) U Tricyclic Antidepress Negative (Negative) Ur Phencyclidine Scrn Negative (Negative) Ur Amphetamines Screen Positive H (Negative) U Methamphetamines Scrn Positive H (Negative) Ur MDMA Scrn (Ecstasy) Negative (Negative) U Benzodiazepines Scrn Negative (Negative) Urine Cocaine Screen Negative (Negative) U Marijuana (THC) Screen Negative (Negative) Ethyl Alcohol mg/dL 04/08/19 04/08/19 04/09/19 Range/Units 14:05 14:05 05:25 WBC 11.1 H (4.5-11.0) X10^3/uL RBC 5.01 (4.5-5.9) X10^6/uL Hgb 12.7 L (13.5-17.5) g/dL Hct 38.3 L (41-53) % MCV 76.5 L (80-100) fL MCH 25.4 L (26-34) PG MCHC 33.1 (30-36) % RDW 15.9 H (11.6-14.8) % Plt Count 223 (150-400) X10^3/uL Neut % (Auto) 83.7 H (50-75) % Lymph % (Auto) 10.4 L (25-40) % Hale % (Auto) 5.7 (3-14) % Eos % (Auto) 0.2 L (2-4) % Baso % (Auto) 0.0 (0-2) % Neut # (Auto) 9300 H (8449-4488) /uL Lymph # (Auto) 1200 (2016-3561) /uL Hale # (Auto) 600 (0-900) /uL Eos # (Auto) 0 (0-450) /uL Baso # (Auto) 0 (0-100) /uL PT (10.1-12.7) SECONDS INR (0.9-1.3) APTT (26.4-36.2) SECONDS Sodium 138 (137-145) mmol/L Potassium 4.1 (3.4-5.1) mmol/L Chloride 101 (98-107) mmol/L Carbon Dioxide 30 (22-32) mmol/L BUN 13 (9-20) mg/dL Creatinine 0.60 L (0.66-1.25) mg/dL Estimated GFR > 60.0 (>60) mL/min BUN/Creatinine Ratio 21.7 (6-22) Glucose 106 H (70-100) mg/dL Calcium 8.6 (8.4-10.2) mg/dL Total Bilirubin 0.7 (0.2-1.3) mg/dL AST 87 H (17-59) IU/L ALT 110 H (21-72) IU/L Alkaline Phosphatase 105 (38-126) U/L Total Protein 7.1 (6.3-8.2) g/dL Albumin 3.7 (3.5-5.0) g/dL Globulin 3.4 (1.7-4.1) g/dL Albumin/Globulin Ratio 1.1 (1.0-2.8) Lipase 36 (23-300) U/L Procalcitonin (<0.5) ng/mL Urine Opiates Screen (Negative) Ur Oxycodone Screen (Negative) Urine Methadone Screen (Negative) Ur Barbiturates Screen (Negative) U Tricyclic Antidepress (Negative) Ur Phencyclidine Scrn (Negative) Ur Amphetamines Screen (Negative) U Methamphetamines Scrn (Negative) Ur MDMA Scrn (Ecstasy) (Negative) U Benzodiazepines Scrn (Negative) Urine Cocaine Screen (Negative) U Marijuana (THC) Screen (Negative) Ethyl Alcohol < 10 mg/dL 04/09/19 04/09/19 04/10/19 Range/Units 05:25 05:25 05:21 WBC 19.5 H D (4.5-11.0) X10^3/uL RBC 4.60 (4.5-5.9) X10^6/uL Hgb 11.6 L (13.5-17.5) g/dL Hct 34.9 L (41-53) % MCV 75.8 L (80-100) fL MCH 25.2 L (26-34) PG MCHC 33.2 (30-36) % RDW 16.1 H (11.6-14.8) % Plt Count 250 (150-400) X10^3/uL Neut % (Auto) (50-75) % Lymph % (Auto) (25-40) % Hale % (Auto) (3-14) % Eos % (Auto) (2-4) % Baso % (Auto) (0-2) % Neut # (Auto) (1207-2934) /uL Lymph # (Auto) (8101-3136) /uL Hale # (Auto) (0-900) /uL Eos # (Auto) (0-450) /uL Baso # (Auto) (0-100) /uL PT (10.1-12.7) SECONDS INR (0.9-1.3) APTT 30 (26.4-36.2) SECONDS Sodium 135 L (137-145) mmol/L Potassium 4.0 (3.4-5.1) mmol/L Chloride 98 (98-107) mmol/L Carbon Dioxide 32 (22-32) mmol/L BUN 11 (9-20) mg/dL Creatinine 0.50 L (0.66-1.25) mg/dL Estimated GFR > 60.0 (>60) mL/min BUN/Creatinine Ratio 22.0 (6-22) Glucose 116 H (70-100) mg/dL Calcium 8.6 (8.4-10.2) mg/dL Total Bilirubin 1.0 (0.2-1.3) mg/dL AST 66 H (17-59) IU/L ALT 90 H (21-72) IU/L Alkaline Phosphatase 105 (38-126) U/L Total Protein 7.0 (6.3-8.2) g/dL Albumin 3.6 (3.5-5.0) g/dL Globulin 3.4 (1.7-4.1) g/dL Albumin/Globulin Ratio 1.1 (1.0-2.8) Lipase (23-300) U/L Procalcitonin (<0.5) ng/mL Urine Opiates Screen (Negative) Ur Oxycodone Screen (Negative) Urine Methadone Screen (Negative) Ur Barbiturates Screen (Negative) U Tricyclic Antidepress (Negative) Ur Phencyclidine Scrn (Negative) Ur Amphetamines Screen (Negative) U Methamphetamines Scrn (Negative) Ur MDMA Scrn (Ecstasy) (Negative) U Benzodiazepines Scrn (Negative) Urine Cocaine Screen (Negative) U Marijuana (THC) Screen (Negative) Ethyl Alcohol mg/dL 04/11/19 04/11/19 04/12/19 Range/Units 05:58 14:30 05:50 WBC 13.3 H 14.3 H 18.2 H (4.5-11.0) X10^3/uL RBC 3.81 L 4.16 L 3.97 L (4.5-5.9) X10^6/uL Hgb 10.0 L 10.6 L 10.2 L (13.5-17.5) g/dL Hct 29.0 L 31.8 L 30.5 L (41-53) % MCV 76.1 L 76.6 L 76.7 L (80-100) fL MCH 26.3 25.4 L 25.8 L (26-34) PG MCHC 34.5 33.2 33.6 (30-36) % RDW 16.0 H 15.8 H 16.0 H (11.6-14.8) % Plt Count 209 253 301 (150-400) X10^3/uL Neut % (Auto) 84.4 H 83.2 H 71.8 (50-75) % Lymph % (Auto) 8.6 L 8.6 L 18.2 L (25-40) % Hale % (Auto) 6.7 8.0 9.4 (3-14) % Eos % (Auto) 0.1 L 0.0 L 0.4 L (2-4) % Baso % (Auto) 0.2 0.2 0.2 (0-2) % Neut # (Auto) 00571 H 84296 H 93035 H (0930-0049) /uL Lymph # (Auto) 1100 1200 3300 (9044-9471) /uL Hale # (Auto) 900 1100 H 1700 H (0-900) /uL Eos # (Auto) 0 0 100 (0-450) /uL Baso # (Auto) 0 0 0 (0-100) /uL PT (10.1-12.7) SECONDS INR (0.9-1.3) APTT (26.4-36.2) SECONDS Sodium (137-145) mmol/L Potassium (3.4-5.1) mmol/L Chloride (98-107) mmol/L Carbon Dioxide (22-32) mmol/L BUN (9-20) mg/dL Creatinine (0.66-1.25) mg/dL Estimated GFR (>60) mL/min BUN/Creatinine Ratio (6-22) Glucose (70-100) mg/dL Calcium (8.4-10.2) mg/dL Total Bilirubin (0.2-1.3) mg/dL AST (17-59) IU/L ALT (21-72) IU/L Alkaline Phosphatase (38-126) U/L Total Protein (6.3-8.2) g/dL Albumin (3.5-5.0) g/dL Globulin (1.7-4.1) g/dL Albumin/Globulin Ratio (1.0-2.8) Lipase (23-300) U/L Procalcitonin (<0.5) ng/mL Urine Opiates Screen (Negative) Ur Oxycodone Screen (Negative) Urine Methadone Screen (Negative) Ur Barbiturates Screen (Negative) U Tricyclic Antidepress (Negative) Ur Phencyclidine Scrn (Negative) Ur Amphetamines Screen (Negative) U Methamphetamines Scrn (Negative) Ur MDMA Scrn (Ecstasy) (Negative) U Benzodiazepines Scrn (Negative) Urine Cocaine Screen (Negative) U Marijuana (THC) Screen (Negative) Ethyl Alcohol mg/dL 04/12/19 04/12/19 Range/Units 05:50 05:50 WBC (4.5-11.0) X10^3/uL RBC (4.5-5.9) X10^6/uL Hgb (13.5-17.5) g/dL Hct (41-53) % MCV (80-100) fL MCH (26-34) PG MCHC (30-36) % RDW (11.6-14.8) % Plt Count (150-400) X10^3/uL Neut % (Auto) (50-75) % Lymph % (Auto) (25-40) % Hale % (Auto) (3-14) % Eos % (Auto) (2-4) % Baso % (Auto) (0-2) % Neut # (Auto) (4831-2257) /uL Lymph # (Auto) (3677-4144) /uL Hale # (Auto) (0-900) /uL Eos # (Auto) (0-450) /uL Baso # (Auto) (0-100) /uL PT (10.1-12.7) SECONDS INR (0.9-1.3) APTT (26.4-36.2) SECONDS Sodium 135 L (137-145) mmol/L Potassium 3.2 L (3.4-5.1) mmol/L Chloride 100 (98-107) mmol/L Carbon Dioxide 28 (22-32) mmol/L BUN 17 (9-20) mg/dL Creatinine 0.60 L (0.66-1.25) mg/dL Estimated GFR > 60.0 (>60) mL/min BUN/Creatinine Ratio 28.3 H (6-22) Glucose 150 H (70-100) mg/dL Calcium 7.9 L (8.4-10.2) mg/dL Total Bilirubin (0.2-1.3) mg/dL AST (17-59) IU/L ALT (21-72) IU/L Alkaline Phosphatase (38-126) U/L Total Protein (6.3-8.2) g/dL Albumin (3.5-5.0) g/dL Globulin (1.7-4.1) g/dL Albumin/Globulin Ratio (1.0-2.8) Lipase (23-300) U/L Procalcitonin 2.38 H (<0.5) ng/mL Urine Opiates Screen (Negative) Ur Oxycodone Screen (Negative) Urine Methadone Screen (Negative) Ur Barbiturates Screen (Negative) U Tricyclic Antidepress (Negative) Ur Phencyclidine Scrn (Negative) Ur Amphetamines Screen (Negative) U Methamphetamines Scrn (Negative) Ur MDMA Scrn (Ecstasy) (Negative) U Benzodiazepines Scrn (Negative) Urine Cocaine Screen (Negative) U Marijuana (THC) Screen (Negative) Ethyl Alcohol mg/dL Discharge Plan Departure Clinical Impression: Fracture of proximal end of left femur Qualifiers: Encounter type: initial encounter Fracture type: closed Qualified Code(s): S72.002A - Fracture of unspecified part of neck of left femur, initial encounter for closed fracture Interventions: ED Discharge Assessment Last Done: 04/08/19 16:17 Admit Date/Time: 04/08/19 17:01 Admit Provider: Melissa Wallace
[2019-04-08] MEDS: ONDANSETRON 4 MG/2 ML INJ IV (13:53)
[2019-04-08] MEDS: MORPHINE 4 MG/ML INJ IV ×3 (13:53→18:14)
[2019-04-08] MEDS: LIDOCAINE 2% (UROJET) 5 ML GEL TOP (13:54)
[2019-04-08 14:12] LABS: Add Manual Diff / Slide Review NO; Basophils Absolute Auto 0 /uL (0-100); Basophils Percent Auto 0.2 % (0-2); Eosinophils Absolute Auto 100 /uL (0-450); Eosinophils Percent Auto 0.6 % (2-4); Hematocrit 39.2 % (41-53); Hemoglobin 12.7 g/dL (13.5-17.5); Lymphocytes Absolute Auto 1100 /uL (1100-4500); Mean Corpuscular HGB Conc 32.5 % (30-36); Mean Corpuscular Hemoglobin 24.8 PG (26-34); Mean Corpuscular Volume 76.4 fL (80-100); Monocytes Absolute Auto 500 /uL (0-900); Monocytes Percent Auto 4.5 % (3-14); Neutrophils Absolute Auto 10200 /uL (1500-7000); Neutrophils Percent Auto 85.7 % (50-75); Platelet Count 217 X10^3/uL (150-400); Red Blood Cell Count 5.13 X10^6/uL (4.5-5.9); White Blood Cell Count 11.8 X10^3/uL (4.5-11.0)
[2019-04-08 14:19] LABS: Prothrombin Time 11.4 SECONDS (10.1-12.7)
[2019-04-08 14:22] LABS: PTT Partial Thromboplastin Tim 30 SECONDS (26.4-36.2)
[2019-04-08 14:24] LABS: Alanine Aminotransferase 110 IU/L (21-72); Albumin 3.7 g/dL (3.5-5.0); Albumin Globulin Ratio 1.1 (1.0-2.8); Alkaline Phosphatase 105 U/L (38-126); Aspartate Aminotransferase 87 IU/L (17-59); BUN Creatinine Ratio 21.7 (6-22); Bilirubin Total 0.7 mg/dL (0.2-1.3); Blood Urea Nitrogen 13 mg/dL (9-20); Calcium 8.6 mg/dL (8.4-10.2); Carbon Dioxide 30 mmol/L (22-32); Chloride 101 mmol/L (98-107); Estimated Glomerular Filt Rate > 60.0 mL/min (>60); Globulin 3.4 g/dL (1.7-4.1); Glucose 106 mg/dL (70-100); HEMOLYSIS < 15 (0-50); Lipase 36 U/L (23-300); Potassium 4.1 mmol/L (3.4-5.1); Sodium 138 mmol/L (137-145); Total Protein 7.1 g/dL (6.3-8.2)
[2019-04-08 14:25] LABS: Ethanol (ETOH) < 10 mg/dL
[2019-04-08] MEDS: ALBUTEROL/IPRATROPIUM 3 ML AMPUL INH ×2 (14:53→19:26)
[2019-04-08] MEDS: ALBUTEROL 2.5 MG/3 ML NEB (ADULT) INH ×3 (15:03→15:17)
[2019-04-08] MEDS: HYDROMORPHONE 1 MG INJ IV (16:14)
--- NOTE | 2019-04-08 16:49 | P.CONS_ITS ---
History of Present Illness Date Patient Seen: 04/08/19 Time Patient Seen: 16:43 Chief complaint: Fall, leg pain Reason for consult: left hip fracture Requesting provider: Mya Henderson Narrative: 59-year-old male with a left hip fracture. He was running earlier and tripped. He fell down and was unable to walk and had severe left hip pain. He did not hit his head. He did not lose consciousness. He did not hurt anywhere else. At this point all the pain is centered around the left hip and anterior thigh. It is sharp and stabbing with any motion. No prodromal shortness of breath, chest pain or dizziness. No numbness or tingling. He has a history significant for IV drug abuse with a history of skin abscesses in the past. Currently supposed to be with a Suboxone provider. He does have a history of COPD and asthma but does not take his prescribed inhalers. He also had a stroke about a year ago. [facility] Medical History Asthma (Acute) History of CVA (cerebrovascular accident) (Acute) Social History Smoking Status: Current some day smoker Social History Smoking Status: Current some day smoker Meds Home Medications Medication Instructions Recorded Confirmed Type albuterol sulfate [Ventolin HFA] 1 puff INHALATION PRN PRN 04/08/19 04/08/19 History fluticasone propion-salmeterol 1 puff INHALATION BID 04/08/19 04/08/19 History Allergies Allergy/AdvReac Type Severity Reaction Status Date / Time amoxicillin [AMOXICILLIN] Allergy Unknown DOES NOT Verified 04/08/19 13:52 REMEMBER SOMETHING NOT GOOD Penicillins [PENICILLINS] Allergy Unknown CAN'T Verified 04/08/19 13:52 REMEMBER RX Review of Systems Constitutional Constitutional: Denies chills and Denies fever(s) ENT Ears, Nose, Mouth, and Throat: No dizziness and No lip swelling Cardiovascular Cardiovascular: Denies chest pain Respiratory Respiratory: Reports cough Genitourinary Genitourinary: Denies difficulty urinating Musculoskeletal Musculoskeletal: Reports system reviewed; no additional complaints, except as documented Neurologic Neurologic: Denies dizziness Psychiatric Psychiatric: Denies change in appetite Hematologic/Lymphatic Hematologic/Lymphatic: Denies easy bruising Allergic/Immunologic Allergic/Immunologic: Denies lip swelling Exam Vital Signs (past 8 hours): - 04/08/19 11:15 04/08/19 14:53 04/08/19 15:00 Temperature 98.0 F Pulse Rate 64 90 108 H Respiratory Rate 20 18 20 Blood Pressure 111/66 Blood Pressure [Left Arm] 141/98 H Pulse Oximetry 96 91 04/08/19 15:04 04/08/19 16:17 Temperature Pulse Rate 91 H 108 H Respiratory Rate 13 20 Blood Pressure 142/77 H Blood Pressure [Left Arm] Pulse Oximetry 97 93 Oxygen Delivery Method Room Air Const Orientation: alert and oriented x3 Resp Auscultation: wheezes Cardio Rate: regular rate Rhythm: regular rhythm Extrem Other: Intact integument over the left hip. Pain with any motion even slight logroll. Can move toes and ankle up and down without problems. Intact sensation throughout the entire leg. 1+ dorsalis pedis pulse. Objective Imaging Left hip x-ray: My impression: Three part minimally displaced intertrochanteric hip fracture. Labs Result Diagrams: 04/08/19 14:05 04/08/19 14:05 Labs: Laboratory Results - last 24 hr 04/08/19 04/08/19 04/08/19 12:12 14:05 14:05 WBC 11.8 H RBC 5.13 Hgb 12.7 L Hct 39.2 L MCV 76.4 L MCH 24.8 L MCHC 32.5 RDW 16.0 H Plt Count 217 Neut % (Auto) 85.7 H Lymph % (Auto) 9.0 L [place] % (Auto) 4.5 Eos % (Auto) 0.6 L Baso % (Auto) 0.2 Neut # (Auto) 14993 H Lymph # (Auto) 1100 [place] # (Auto) 500 Eos # (Auto) 100 Baso # (Auto) 0 PT 11.4 INR 1.0 APTT 30 Sodium Potassium Chloride Carbon Dioxide BUN Creatinine Estimated GFR BUN/Creatinine Ratio Glucose Calcium Total Bilirubin AST ALT Alkaline Phosphatase Total Protein Albumin Globulin Albumin/Globulin Ratio Lipase Urine Opiates Screen Positive H Ur Oxycodone Screen Positive H Urine Methadone Screen Negative Ur Barbiturates Screen Negative U Tricyclic Antidepress Negative Ur Phencyclidine Scrn Negative Ur Amphetamines Screen Positive H U Methamphetamines Scrn Positive H Ur MDMA Scrn (Ecstasy) Negative U Benzodiazepines Scrn Negative Urine Cocaine Screen Negative U Marijuana (THC) Screen Negative Ethyl Alcohol 04/08/19 04/08/19 14:05 14:05 WBC RBC Hgb Hct MCV MCH MCHC RDW Plt Count Neut % (Auto) Lymph % (Auto) [place] % (Auto) Eos % (Auto) Baso % (Auto) Neut # (Auto) Lymph # (Auto) [place] # (Auto) Eos # (Auto) Baso # (Auto) PT INR APTT Sodium 138 Potassium 4.1 Chloride 101 Carbon Dioxide 30 BUN 13 Creatinine 0.60 L Estimated GFR > 60.0 BUN/Creatinine Ratio 21.7 Glucose 106 H Calcium 8.6 Total Bilirubin 0.7 AST 87 H ALT 110 H Alkaline Phosphatase 105 Total Protein 7.1 Albumin 3.7 Globulin 3.4 Albumin/Globulin Ratio 1.1 Lipase 36 Urine Opiates Screen Ur Oxycodone Screen Urine Methadone Screen Ur Barbiturates Screen U Tricyclic Antidepress Ur Phencyclidine Scrn Ur Amphetamines Screen U Methamphetamines Scrn Ur MDMA Scrn (Ecstasy) U Benzodiazepines Scrn Urine Cocaine Screen U Marijuana (THC) Screen Ethyl Alcohol < 10 Assessment & Plan Assessment & Plan narrative: Left hip fracture -plan is for ORIF tomorrow. Plan to fix this with a plate and screw construct. Risks and benefits of surgery were discussed including not limited to medical risk with heart attack, stroke, , DVT, PE, infection, bleeding, scarring, nerve injury, nonunion, malunion, loss of ambulatory status, limp, failure to alleviate symptoms, need for further surgery. All questions were answered and appropriate consents were obtained. History of COPD-he is being admitted for medical management overnight and plan is for respiratory treatments. History of IV drug abuse -explained to him that he is a high risk for infection if he continues with this. History of smoking -explain that this inhibits bony fusion I recommend cessation.
[2019-04-08] MEDS: OXYCODONE IR 10 MG TABLET PO ×2 (18:56→22:47)
[2019-04-08] MEDS: MORPHINE 2 MG/ML INJ IV (20:11)
--- NOTE | 2019-04-08 22:22 | PC.NURSE ---
admit note: A&OX3. LS: dim. 89% RA, 2L NC 96%RA. no chest pain or n/v/ Pain controlled with morphine 4mg IV. he does fall asleep after pain meds, but when woken up, pt c/o 9/10 pain. Ice pack applied to L.hip. PP++. able to wiggle toes. oriented pt to room. call light in reach. bed alarm active.
[2019-04-08] MEDS: DOCUSATE 100 MG CAPSULE PO (22:32)
--- NOTE | 2019-04-08 23:05 | PM.HP.1 ---
History of Present Illness Date Patient Seen: 04/08/19 Time Patient Seen: 19:30 Chief complaint: Fall, leg pain Narrative: Fahad Ramesh is a 59-year-old male with a medical history of hepatitis C, IV drug abuse, asthma, depression, chronic back pain, and a CVA 1 year ago who was running toward his bank when he tripped and fell. He states that he fell hitting his head and left hip and feels that his hip observed the brunt of the fall. He did state that he heard something crack. He states that he has currently has 9/10 pain. Patient denies headache, fever sweats or chills, neck pain, difficulty breathing, chest pain, nausea or vomiting, dysuria, diarrhea or constipation. Patient did inform me that he is going to a Suboxone clinic in [facility] he states as initials OIP. I was able to locate [facility] in [place] through a web search. Patient states his last use of heroin was 2 months ago however he informed the ED provider that his last use was 10 days ago. Urine toxicology was positive for methamphetamine, heroin, and THC. Patient History Medical History Closed intertrochanteric fracture of left femur (Acute) Drug abuse, IV (Acute) Asthma (Chronic) Chronic back pain greater than 3 months duration (Chronic) Depression (Chronic) History of CVA (cerebrovascular accident) (Inactive) Surgical History History of hernia repair (Acute) Social History household members: friend(s) Smoking Status: Current some day smoker Family & Social History Social History: household members friend(s) Prior Living Arrangements House Safety & Behavioral: Feels Safe in Current Yes Environment Been Physically Hurt or No Threatened By a Person Suicidal Ideation Description None Suicide Plan Description No Plan Tobacco & Substance use: Tobacco type cigarettes,cannabis/marijuana Smoking Status Current some day smoker alcohol intake frequency a few times a month Substance Use Type heroin,opiates,IV drugs, methamphetamine Meds Home Medications Medication Instructions Recorded Confirmed Type albuterol sulfate [Ventolin HFA] 1 puff INHALATION PRN PRN 04/08/19 04/08/19 History fluticasone propion-salmeterol 1 puff INHALATION BID 04/08/19 04/08/19 History Allergies Allergy/AdvReac Type Severity Reaction Status Date / Time amoxicillin [AMOXICILLIN] Allergy Unknown DOES NOT Verified 04/08/19 13:52 REMEMBER SOMETHING NOT GOOD Penicillins [PENICILLINS] Allergy Unknown CAN'T Verified 04/08/19 13:52 REMEMBER RX Review of Systems Review of Systems All systems reviewed & are unremarkable except as noted in HPI and below Exam Vital Signs (past 8 hours): - 04/08/19 16:17 04/08/19 16:55 04/08/19 19:26 Temperature 97.8 F Pulse Rate 108 H 97 H 105 H Respiratory Rate 20 14 20 Blood Pressure 142/77 H 128/81 Pulse Oximetry 93 93 95 04/08/19 21:20 Temperature 99.1 F Pulse Rate 93 H Respiratory Rate 14 Blood Pressure 132/70 Pulse Oximetry 98 Oxygen Delivery Method Room Air Narrative Exam Narrative: General: Alert and oriented, very cachectic, unkempt 59-year-old male appears older than stated age HEENT: Head is normocephalic atraumatic, conjunctivae was clear sclera nonicteric, oral and nasal mucosa are somewhat dry Neck: Supple appears to have full range of motion Respirations: Lung sounds are clear to auscultation bilaterally no wheezes or rhonchi CV: Regular rate and rhythm no murmur or rubs Skin: Numerous track crane on his upper and lower arms, multiple healed scars and abrasions, widely ecchymotic Neuro: Alert and oriented x4 with no focal deficits Extremities: Left toe has good capillary refill, left hip is contracted Psych: Normal mood and affect, appears to be dependent on opioids Objective Labs Result Diagrams: 04/08/19 14:05 04/08/19 14:05 Labs: Laboratory Results - last 24 hr 04/08/19 04/08/19 04/08/19 12:12 14:05 14:05 WBC 11.8 H RBC 5.13 Hgb 12.7 L Hct 39.2 L MCV 76.4 L MCH 24.8 L MCHC 32.5 RDW 16.0 H Plt Count 217 Neut % (Auto) 85.7 H Lymph % (Auto) 9.0 L [place] % (Auto) 4.5 Eos % (Auto) 0.6 L Baso % (Auto) 0.2 Neut # (Auto) 31978 H Lymph # (Auto) 1100 [place] # (Auto) 500 Eos # (Auto) 100 Baso # (Auto) 0 PT 11.4 INR 1.0 APTT 30 Sodium Potassium Chloride Carbon Dioxide BUN Creatinine Estimated GFR BUN/Creatinine Ratio Glucose Calcium Total Bilirubin AST ALT Alkaline Phosphatase Total Protein Albumin Globulin Albumin/Globulin Ratio Lipase Urine Opiates Screen Positive H Ur Oxycodone Screen Positive H Urine Methadone Screen Negative Ur Barbiturates Screen Negative U Tricyclic Antidepress Negative Ur Phencyclidine Scrn Negative Ur Amphetamines Screen Positive H U Methamphetamines Scrn Positive H Ur MDMA Scrn (Ecstasy) Negative U Benzodiazepines Scrn Negative Urine Cocaine Screen Negative U Marijuana (THC) Screen Negative Ethyl Alcohol 04/08/19 04/08/19 14:05 14:05 WBC RBC Hgb Hct MCV MCH MCHC RDW Plt Count Neut % (Auto) Lymph % (Auto) [place] % (Auto) Eos % (Auto) Baso % (Auto) Neut # (Auto) Lymph # (Auto) [place] # (Auto) Eos # (Auto) Baso # (Auto) PT INR APTT Sodium 138 Potassium 4.1 Chloride 101 Carbon Dioxide 30 BUN 13 Creatinine 0.60 L Estimated GFR > 60.0 BUN/Creatinine Ratio 21.7 Glucose 106 H Calcium 8.6 Total Bilirubin 0.7 AST 87 H ALT 110 H Alkaline Phosphatase 105 Total Protein 7.1 Albumin 3.7 Globulin 3.4 Albumin/Globulin Ratio 1.1 Lipase 36 Urine Opiates Screen Ur Oxycodone Screen Urine Methadone Screen Ur Barbiturates Screen U Tricyclic Antidepress Ur Phencyclidine Scrn Ur Amphetamines Screen U Methamphetamines Scrn Ur MDMA Scrn (Ecstasy) U Benzodiazepines Scrn Urine Cocaine Screen U Marijuana (THC) Screen Ethyl Alcohol < 10 Assessment & Plan Assessment & Plan narrative: Fahad Ramesh is a 59-year-old male who will be admitted as an inpatient for surgical repair of a left intertrochanteric femur fracture. 1. Left intertrochanteric femur fracture, acute and present on admission - Dr. Bruno has graciously agreed to consult and schedule the patient for surgery tomorrow. - pain controlled with oxycodone 10 mg p.o. as needed q.4 hours, and morphine 4 mg IV q.4 hours for breakthrough pain - Patient is NPO -patient will require physical therapy services after surgery. 2. Mild leukocytosis, acute, present on admission - this is presumed to be due to physiologic stress - blood cultures have been drawn and are pending - we will need to monitor the patient closely for signs and symptoms of infection given his IV drug use as he it is at risk for septic joints and and/or endocarditis 3. IV drug abuse, active, present on admission - patient's urine toxicology was positive for methamphetamines, THC, and heroin - will need to administer opioid pain medications judiciously and transition the patient to non opioid pain medications as soon as possible to reduce the risk of respiratory depression given the patient's high opioid tolerance 4. Asthma/COPD, stable, present on admission - Respiratory therapy has been consulted to determine patient's oxygenation needs, assume the patient will be seen by anesthesiology to assess respiratory risk. - Albuterol/duonebs as needed. Patient is admitted as an inpatient as his stay is anticipated to exceed 2 midnights. IV LR at 100 ml/hour, NPO, CMP in the am VTE Prophylaxis: bilateral SCDs Disposition: Unknown at this time. Code status: Full Code Admission time: 65 minutes Meds reconciled: Yes/No/Partial based on current med list Scores GCS [place] coma scale eye opening: Spontaneous [place] coma scale verbal response: Orientated [place] coma scale motor response: Obey commands [place] coma scale total score: 15 Quality VTE Deep Vein Thrombosis/Pulmonary Embolism Present on Admission: No
[2019-04-09] VITALS (22 sets, daily range): BP systolic 130–167; BP diastolic 70–96; PULSE 67–95; RESP 14–28; TEMP 36.3–37.3; O2SAT 88–98; BMI 19.7
--- NOTE | 2019-04-09 | DI.RAD.S_ITS ---
PROCEDURE: XR HIP W PEL IF DONE LT 2V INDICATIONS: LEFT HIP REPAIR TECHNIQUE: 3 views of the hip were acquired. COMPARISON: [facility], CR, XR FEMUR LT MIN 2V, 04/08/2019, 11:21. FINDINGS: 3 intraoperative fluoroscopy images demonstrate open reduction and internal fixation of comminuted proximal left femoral fracture with an intertrochanteric component. IMPRESSION: Open reduction and internal fixation of proximal left femoral fracture. Dictated by: Shawn Rosenberg M.D. on 04/09/2019 at 14:25 Approved by: Shawn Rosenberg M.D. on 04/09/2019 at 14:27
[2019-04-09] MEDS: MORPHINE 4 MG/ML INJ IV ×2 (00:49→07:50)
[2019-04-09] MEDS: NICOTINE 14 PATCH 14 MG TOP (00:50)
[2019-04-09] MEDS: LACTATED RINGERS 1,000 ML 100 ML IV ×2 (00:50→15:20)
--- NOTE | 2019-04-09 02:21 | PC.NURSE ---
Addendum entered by Aminah Gomez R.N. 04/09/19 06:52: Pt had bout of nausea with scant emesis and incontinent stool. Medicated with zofran. complete bed change. Original Note: Assumed care of pt at 2300 on 04/08/19. Pt sleeping during bedside hand-off. Awakens at approx 0030; reports 9/10 L. hip pain. Medicated with Morphine for mar. Medication effective. IVF initiated per orders to LUE PICC. Hep flushes and NS flushes order per protocol. Pt refuses repositioning and refused calf scd to LLE. Applied to R. calf. CMS+, PPP, able to wiggle toes. Denies numbness. NPO at MN. Oral swabs set-up; pt is able to do oral care independently. Bed alarm on. Door open for close monitoring.
[2019-04-09] MEDS: OXYCODONE IR 10 MG TABLET PO (04:13)
[2019-04-09 05:48] LABS: Add Manual Diff / Slide Review NO; Basophils Absolute Auto 0 /uL (0-100); Eosinophils Absolute Auto 0 /uL (0-450); Eosinophils Percent Auto 0.2 % (2-4); Hematocrit 38.3 % (41-53); Hemoglobin 12.7 g/dL (13.5-17.5); Lymphocytes Absolute Auto 1200 /uL (1100-4500); Lymphocytes Percent Auto 10.4 % (25-40); Mean Corpuscular HGB Conc 33.1 % (30-36); Mean Corpuscular Hemoglobin 25.4 PG (26-34); Mean Corpuscular Volume 76.5 fL (80-100); Monocytes Absolute Auto 600 /uL (0-900); Monocytes Percent Auto 5.7 % (3-14); Neutrophils Absolute Auto 9300 /uL (1500-7000); Neutrophils Percent Auto 83.7 % (50-75); Platelet Count 223 X10^3/uL (150-400); Red Blood Cell Count 5.01 X10^6/uL (4.5-5.9); Red Cell Distribution Width 15.9 % (11.6-14.8); White Blood Cell Count 11.1 X10^3/uL (4.5-11.0)
[2019-04-09 05:57] LABS: Alanine Aminotransferase 90 IU/L (21-72); Albumin 3.6 g/dL (3.5-5.0); Albumin Globulin Ratio 1.1 (1.0-2.8); Alkaline Phosphatase 105 U/L (38-126); Aspartate Aminotransferase 66 IU/L (17-59); Blood Urea Nitrogen 11 mg/dL (9-20); Calcium 8.6 mg/dL (8.4-10.2); Carbon Dioxide 32 mmol/L (22-32); Chloride 98 mmol/L (98-107); Estimated Glomerular Filt Rate > 60.0 mL/min (>60); Globulin 3.4 g/dL (1.7-4.1); Glucose 116 mg/dL (70-100); HEMOLYSIS < 15 (0-50); Sodium 135 mmol/L (137-145)
[2019-04-09 06:05] LABS: PTT Partial Thromboplastin Tim 30 SECONDS (26.4-36.2)
[2019-04-09] MEDS: ONDANSETRON 4 MG/2 ML INJ IV (06:34)
[2019-04-09] MEDS: SODIUM CHLORIDE 0.9% FLUSH 10 ML IV (07:51)
[2019-04-09] MEDS: VANCOMYCIN 1,000 MG/200 ML FROZ.PIGGY 200 MG IV ×2 (08:34→20:30)
[2019-04-09] MEDS: METOCLOPRAMIDE 10 MG/2 ML INJ IV (08:35)
[2019-04-09] MEDS: ALBUTEROL/IPRATROPIUM 3 ML AMPUL INH ×2 (08:41→16:01)
--- NOTE | 2019-04-09 10:09 | PC.NURSE ---
Addendum entered by Izabel Chakraborty R.N. 04/09/19 11:05: GI//SURG - suárez emptied 175ml, incont some formed stool, pericare provided, new brief, surg arrived, saline and hep flushed dbl picc, to PACU. Original Note: AM NOTE - at bedside report, pt is awake, moaning, has emesis present on floor, bed area, was incont loose stool, oral care provided, gown and brief changed, given 4mg iv morphine, spoke Dr. Gimenez and new order rec'd and given 10mg iv reglan, while dozing, pt 02 sat 88%, has congested cough and RT in for tmt, placed on 2l NC and sat incr to 93%, repositioned with HOB elevated 30 degrees for aspiration precautions
--- NOTE | 2019-04-09 10:46 | CM.DANOTE ---
DCP: Case received, EMR reviewed regarding patient's history. Patient sleeping, and will be having surgery today. Left a message for family or friend that is listed on face sheet, Bridgette Beltran, to call case worker. Information regarding patient obtained by EMR history. Patient is a 59 year old male who admitted yesterday afternoon to the care of the hospitalist team. PCP: Dr. Joshi Payer: confirmed: Medicare/Medicaid. Patient came to hospital secondary to a ground level fall. He had been running. According to note, he was running to his bank. He had tripped and fell, and landed on his left hip. Patient holds diagnosis of closed intertrochanteric fracture of the left femur. Patient has history of hepatitis C, IV drug abuse, as well as depression and chronic back pain. He also had a CVA a year ago. According to the note, patient stated that he had been going to a facility called [facility] in [place]. Patient stated that his last use of heroin was 2 months ago, but his urology drug screen came back positive for methamphetamine, heroin, and THC. Patient is scheduled for surgery this afternoon. He has been sleeping. Attempted to reach a family member for more information, unclear if it is family member or friend. Her name is Bridgette Beltran. Left a message with her to have her call this case worker. At this point, plan will be determined. Unclear if he will be able to go back home at this point, for attempting to find a skilled facility with his background may be challenging. Will consult with social work on this case as well. P: DCP to continue to follow. Plan is to be determined upon how he does after surgery, and his drug use. Will consult with social work as well. Claudia Segal RN/Service Order Dispatcher Chief
--- NOTE | 2019-04-09 11:12 | PM.PN.1 ---
Subjective Date Patient Seen: 04/09/19 Interval history: Patient is a 59-year-old male who suffered a left intertrochanteric fracture following a fall. He also has a history of asthma and polysubstance abuse. This morning the patient was nauseated. He reports he is in pain. Exam Vital Signs (past 8 hours): - 04/09/19 04:08 04/09/19 07:00 04/09/19 07:35 Temperature 97.7 F 97.3 F L Pulse Rate 79 78 Respiratory Rate 18 16 Blood Pressure 160/91 H 147/86 H Pulse Oximetry 96 88 L 93 04/09/19 08:43 Temperature Pulse Rate 81 Respiratory Rate 16 Blood Pressure Pulse Oximetry 96 Oxygen Delivery Method Nasal Cannula Oxygen Flow Rate 2 Narrative Exam Narrative: Ill appearing male who appears on comfort Lungs: Clear to auscultation Cardiac exam: Regular rate and rhythm normal S1-S2 Abdomen: Soft nontender Extremities: Trace Objective Labs Result Diagrams: 04/09/19 05:25 04/09/19 05:25 Labs: Laboratory Results - last 24 hr 04/08/19 04/08/19 04/08/19 12:12 14:05 14:05 WBC 11.8 H RBC 5.13 Hgb 12.7 L Hct 39.2 L MCV 76.4 L MCH 24.8 L MCHC 32.5 RDW 16.0 H Plt Count 217 Neut % (Auto) 85.7 H Lymph % (Auto) 9.0 L [place] % (Auto) 4.5 Eos % (Auto) 0.6 L Baso % (Auto) 0.2 Neut # (Auto) 55614 H Lymph # (Auto) 1100 [place] # (Auto) 500 Eos # (Auto) 100 Baso # (Auto) 0 PT 11.4 INR 1.0 APTT 30 Sodium Potassium Chloride Carbon Dioxide BUN Creatinine Estimated GFR BUN/Creatinine Ratio Glucose Calcium Total Bilirubin AST ALT Alkaline Phosphatase Total Protein Albumin Globulin Albumin/Globulin Ratio Lipase Urine Opiates Screen Positive H Ur Oxycodone Screen Positive H Urine Methadone Screen Negative Ur Barbiturates Screen Negative U Tricyclic Antidepress Negative Ur Phencyclidine Scrn Negative Ur Amphetamines Screen Positive H U Methamphetamines Scrn Positive H Ur MDMA Scrn (Ecstasy) Negative U Benzodiazepines Scrn Negative Urine Cocaine Screen Negative U Marijuana (THC) Screen Negative Ethyl Alcohol 04/08/19 04/08/19 04/09/19 14:05 14:05 05:25 WBC 11.1 H RBC 5.01 Hgb 12.7 L Hct 38.3 L MCV 76.5 L MCH 25.4 L MCHC 33.1 RDW 15.9 H Plt Count 223 Neut % (Auto) 83.7 H Lymph % (Auto) 10.4 L [place] % (Auto) 5.7 Eos % (Auto) 0.2 L Baso % (Auto) 0.0 Neut # (Auto) 9300 H Lymph # (Auto) 1200 [place] # (Auto) 600 Eos # (Auto) 0 Baso # (Auto) 0 PT INR APTT Sodium 138 Potassium 4.1 Chloride 101 Carbon Dioxide 30 BUN 13 Creatinine 0.60 L Estimated GFR > 60.0 BUN/Creatinine Ratio 21.7 Glucose 106 H Calcium 8.6 Total Bilirubin 0.7 AST 87 H ALT 110 H Alkaline Phosphatase 105 Total Protein 7.1 Albumin 3.7 Globulin 3.4 Albumin/Globulin Ratio 1.1 Lipase 36 Urine Opiates Screen Ur Oxycodone Screen Urine Methadone Screen Ur Barbiturates Screen U Tricyclic Antidepress Ur Phencyclidine Scrn Ur Amphetamines Screen U Methamphetamines Scrn Ur MDMA Scrn (Ecstasy) U Benzodiazepines Scrn Urine Cocaine Screen U Marijuana (THC) Screen Ethyl Alcohol < 10 04/09/19 04/09/19 05:25 05:25 WBC RBC Hgb Hct MCV MCH MCHC RDW Plt Count Neut % (Auto) Lymph % (Auto) [place] % (Auto) Eos % (Auto) Baso % (Auto) Neut # (Auto) Lymph # (Auto) [place] # (Auto) Eos # (Auto) Baso # (Auto) PT INR APTT 30 Sodium 135 L Potassium 4.0 Chloride 98 Carbon Dioxide 32 BUN 11 Creatinine 0.50 L Estimated GFR > 60.0 BUN/Creatinine Ratio 22.0 Glucose 116 H Calcium 8.6 Total Bilirubin 1.0 AST 66 H ALT 90 H Alkaline Phosphatase 105 Total Protein 7.0 Albumin 3.6 Globulin 3.4 Albumin/Globulin Ratio 1.1 Lipase Urine Opiates Screen Ur Oxycodone Screen Urine Methadone Screen Ur Barbiturates Screen U Tricyclic Antidepress Ur Phencyclidine Scrn Ur Amphetamines Screen U Methamphetamines Scrn Ur MDMA Scrn (Ecstasy) U Benzodiazepines Scrn Urine Cocaine Screen U Marijuana (THC) Screen Ethyl Alcohol Assessment & Plan (1) Fracture of proximal end of left femur: Problem details: Patient will be taken to the operating room today for definitive repair. Qualifiers: Encounter type: initial encounter Fracture healing: Fracture type: closed Open fracture type: Qualified Code(s): S72.002A - Fracture of unspecified part of neck of left femur, initial encounter for closed fracture Current visit: Yes Status: Acute (2) History of asthma: Problem details: Chronic Current visit: Yes Status: Acute (3) Substance abuse or dependence: Problem details: Will monitor closely for evidence of withdrawal Current visit: Yes Status: Acute Quality VTE Deep Vein Thrombosis/Pulmonary Embolism Present on Admission: No
[2019-04-09] MEDS: LACTATED RINGERS 1,000 ML 42 ML IV (11:30)
--- NOTE | 2019-04-09 11:31 | PM.PREOP ---
Pre-operative Note Interval Note History & Physical reviewed/Exam performed by Physician: Yes Changes to H&P: No H&P completed within 30 days and has changed as indicated here:: L hip marked
[2019-04-09] MEDS: fentaNYL 100 MCG/2 ML INJ IV ×2 (12:00→12:08)
[2019-04-09] MEDS: ALBUTEROL 2.5 MG/3 ML NEB (ADULT) INH (12:06)
--- NOTE | 2019-04-09 12:15 | SUR.HOLD ---
1200 Pt starting to moan, restless, c/o l hip pain 10/10. Dr jacobs notified and order obtained for fentanyl, med given pt states pain 5/10 and tolerable. Inspiratory wheeze both lungs albuterol treatment given. Both Marc and Dr Jacobs spoke to pt.
[2019-04-09] MEDS: CLINDAMYCIN 600 MG/50 ML PIGGYBACK 50 MG IV (12:23)
--- NOTE | 2019-04-09 13:09 | SUR.OPER ---
Head on pillow. Supine on hana fracture table with operative leg secured in traction. Other leg secured in padded boot attached to hana table leg armature. Arms across chest, secured with sheet.
[2019-04-09] MEDS: BUPIVACAINE 0.5% W/ EPI (PF) VIAL 30 ML INJ (13:25)
--- NOTE | 2019-04-09 14:22 | PM.OP.1 ---
Operative Date/Time/Diagnoses Date of procedure: 04/09/19 Time of procedure: 14:22 Pre-op diagnosis: Three-part left hip inter trochanteric fracture Post-op diagnosis: same Procedure & Clinicians Procedure: ORIF of left hip fracture with plate screw construct Same procedure as scheduled: Yes Indications: 59-year-old male with a intertroch hip fracture. It is felt that he would benefit from operative reduction and stabilization. Risks and benefits of surgery were discussed and appropriate consents were obtained. Surgeon: Kenney Bruno Click Yes if Unassisted: Yes Anesthesia Type: General Operative Notes Findings: None Closure Type: primary Specimen(s): none sent Prosthetic devices, grafts, tissues, transplants, or devices: Synthes DHS Estimated Blood Loss (mL): 300 Procedure in detail: Patient was brought to the operating room and intubated on the stretcher. Time-out was performed. Preoperative antibiotics were given. They were then transferred to the fracture table. He was positioned on the [place] table and attention was turned towards the well-marked left hip. This was checked under x-ray and we abducted it a little to try to increase the hip angle and get better overall positioning. The leg was prepped and draped in the standard sterile fashion. Using fluoro for localization, a 12 cm longitudinal incision was made just distal to the greater trochanter. We used Bovie to come down to and split the fascia. The vastus lateralis was exposed and the muscle was split. We exposed the bone. The drill guide was positioned and checked under x-ray and then we advanced a guidewire up the femoral neck into the head. Position was confirmed on two views of fluoroscopy. We used the small is angle, 135?, but had to go lower than standard as he had a fairly flat femoral neck angle. We then measured and reamed under fluoro. We then placed our 95 mm length hip screw. We then placed a 4 hole plate over the screw and fixed it to the femoral shaft with standard AO technique. Final x-rays were taken. The wound was irrigated. The vastus was closed and then a deep drain was placed. Fascia was closed. Superficial and skin were closed. Sterile dressing was placed. They were then extubated and brought to the recovery room with no complications. Complications: none Condition: stable Disposition: PACU Plan for aftercare: Touch down weight-bearing on the left lower extremity for 6 weeks. Inpatient admission.
[2019-04-09] MEDS: MORPHINE 10 MG/ML INJ 2 MG IV (14:49)
[2019-04-09] MEDS: MORPHINE 10 MG/ML INJ 4 MG IV ×2 (15:03→15:14)
[2019-04-09] MEDS: hydrOXYzine 50 MG/ML INJ 25 MG IM (15:29)
--- NOTE | 2019-04-09 15:37 | SUR.PHASEI ---
Post op PACU transfer note: VSS, O2 Sat on 2 L/assistant manager WNL. Respirations regular and unlabored. When titrate, O2 sats drop from 98-91% Will transfer with O2. Dressing CDI with hemovac compressed to left hip. Ice pack on surgical site. Ortho/Neuro checks WNL. Medicated for pain level 9/10 with multiple doses of Morphine. Patient shows signs of pain level improvement. Sleeping most of the time. Easily arousable and responds appropriately to verbal commands. Stable for transport to IP room 226. Edyta Hastings RN
[2019-04-09] MEDS: LACTATED RINGERS 1,000 ML 125 ML IV (16:07)
[2019-04-09] MEDS: DOCUSATE 100 MG CAPSULE PO (20:33)
[2019-04-09] MEDS: MAGNESIUM HYDROXIDE 30 ML UDC PO (20:37)
[2019-04-10] VITALS (9 sets, daily range): BP systolic 130–169; BP diastolic 67–93; PULSE 69–102; RESP 16–24; TEMP 36.4–37.3; O2SAT 90–98; BMI 19.5
[2019-04-10] MEDS: LACTATED RINGERS 1,000 ML 125 ML IV ×3 (00:57→19:17)
[2019-04-10 05:30] LABS: Hematocrit 34.9 % (41-53); Hemoglobin 11.6 g/dL (13.5-17.5); Mean Corpuscular HGB Conc 33.2 % (30-36); Mean Corpuscular Hemoglobin 25.2 PG (26-34); Mean Corpuscular Volume 75.8 fL (80-100); Platelet Count 250 X10^3/uL (150-400); Red Cell Distribution Width 16.1 % (11.6-14.8)
[2019-04-10 05:39] LABS: White Blood Cell Count 19.5 X10^3/uL (4.5-11.0)
--- NOTE | 2019-04-10 05:52 | PC.NURSE ---
Pt very sleepy this shift; did not use his call light, did not speak when receiving care. HR irregular, often tachy low 100's. T=99.0. Pt denies N and V yet emesis found on floor and in bed. Continued fluid as patient has not eaten or drank this shift despite encouragement. Pt turns independently. Drsg C/D/I, urine output good, and scant sanguineous in HV.
[2019-04-10] MEDS: ONDANSETRON 4 MG/2 ML INJ IV (06:55)
--- NOTE | 2019-04-10 07:03 | PM.PNPO.1 ---
Subjective Date Patient Seen: 04/10/19 Time Patient Seen: 07:03 Interval history: Having pain in the left hip. Otherwise doing well. Exam Vital Signs (past 8 hours): - 04/10/19 00:40 04/10/19 05:33 Temperature 99.1 F 99.0 F Pulse Rate 95 H 101 H Respiratory Rate 16 16 Blood Pressure 169/93 H 149/68 H Pulse Oximetry 94 95 Oxygen Delivery Method Nasal Cannula Oxygen Flow Rate 1 Const Orientation: alert and awake Extrem Other: Minimal drainage on dressing. Easily wiggles toes, soft calf. Drain output 3 mL Objective Labs Result Diagrams: 04/10/19 05:21 04/09/19 05:25 Labs: Laboratory Results - last 24 hr 04/10/19 05:21 WBC 19.5 H D RBC 4.60 Hgb 11.6 L Hct 34.9 L MCV 75.8 L MCH 25.2 L MCHC 33.2 RDW 16.1 H Plt Count 250 Assessment & Plan Post-op Postoperative Procedures Operation Date: 04/09/19 12:45 Actual Procedures Side Surgeon p ORIF Hip DHS Left Kenney Bruno MD stable after ORIF of the left hip. mobilize with physical therapy today. He does have an elevated white count, most likely an acute phase reactant with the trauma and surgery. recheck tomorrow. Quality VTE Deep Vein Thrombosis/Pulmonary Embolism Present on Admission: No
[2019-04-10] MEDS: OXYCODONE IR 5 MG TABLET PO ×3 (08:37→19:16)
[2019-04-10] MEDS: DOCUSATE 100 MG CAPSULE PO ×2 (08:37→20:57)
[2019-04-10] MEDS: ENOXAPARIN 30 MG/0.3 ML SYRINGE SUBCUT ×2 (08:38→20:52)
[2019-04-10] MEDS: METOCLOPRAMIDE 10 MG/2 ML INJ IV (08:41)
[2019-04-10] MEDS: ALBUTEROL/IPRATROPIUM 3 ML AMPUL INH ×2 (09:02→17:43)
--- NOTE | 2019-04-10 10:11 | PM.PN.1 ---
Subjective Date Patient Seen: 04/10/19 Time Patient Seen: 10:11 Interval history: He is seen today in his room to follow-up the left hip fracture, heroin withdrawal and asthma. He is sleeping/sedated. His white count is 19.5 but there is no fever and vital signs are stable. Exam Vital Signs (past 8 hours): - 04/10/19 05:33 04/10/19 07:24 04/10/19 09:03 Temperature 99.0 F 98.3 F Pulse Rate 101 H 76 69 Respiratory Rate 16 18 16 Blood Pressure 149/68 H 152/88 H Pulse Oximetry 95 92 97 Oxygen Delivery Method Room Air Oxygen Flow Rate 1 Narrative Exam Narrative: Heart is regular rate and rhythm without murmur. Lungs are clear to auscultation bilaterally. Extremities have no edema. The left hip dressing is clean and in place without signs of bleeding or infection. Objective Labs Result Diagrams: 04/10/19 05:21 04/09/19 05:25 Labs: Laboratory Results - last 24 hr 04/10/19 05:21 WBC 19.5 H D RBC 4.60 Hgb 11.6 L Hct 34.9 L MCV 75.8 L MCH 25.2 L MCHC 33.2 RDW 16.1 H Plt Count 250 Assessment & Plan (1) Substance abuse or dependence: Problem details: No signs of withdrawal or overt delirium. Current visit: Yes Status: Acute (2) History of asthma: Problem details: Chronic Current visit: Yes Status: Acute (3) Fracture of proximal end of left femur: Problem details: Doing well postoperative day 1, followed by Orthopedics. Qualifiers: Encounter type: initial encounter Fracture healing: Fracture type: closed Open fracture type: Qualified Code(s): S72.002A - Fracture of unspecified part of neck of left femur, initial encounter for closed fracture Current visit: Yes Status: Acute (4) Leukocytosis: Problem details: Repeat CBC tomorrow This appears to be a postoperative elevation without current signs of infection. Current visit: Yes Status: Acute Quality VTE Deep Vein Thrombosis/Pulmonary Embolism Present on Admission: No
--- NOTE | 2019-04-10 12:01 | PT.IIE ---
Current Diagnoses Fracture of unspecified part of neck of left femur, initial encounter for closed fracture (04/08/19) Personal history of other diseases of the respiratory system (04/08/19) Surgery Performed Operation Date: 04/09/19 12:45 Actual Procedures p ORIF Hip DHS(Left) - Kenney Bruno MD Surgical History (Last Reviewed 04/08/19 @ 23:13 by JONATHAN Sampson) History of hernia repair (Acute) Medical History (Last Reviewed 04/08/19 @ 23:13 by JONATHAN Sampson) Closed intertrochanteric fracture of left femur (Acute) Drug abuse, IV (Acute) Asthma (Chronic) Chronic back pain greater than 3 months duration (Chronic) Depression (Chronic) History of CVA (cerebrovascular accident) (Inactive) Physical Therapy Inpatient Evaluation/Re-Eval M1 PT/OT-IP Prior Functional Status Start: 04/10/19 11:16 Freq: NEEDED Status: Active Protocol: Document 04/10/19 10:35 (Rec: 04/10/19 12:01 [id number]) Medical Review Prior Functional Status Medical History Reviewed Yes Communication Pt is currently lethargic and only able to answer simple questions. Will cont assess Mobility and Gait Pt states he is independent for mobility at home and community without AD. He does not drive Activities of Daily Living and IADL's independent with ADLs and IADLs without AD. Social History Household Members significant other Living Arrangements House Number of Floors (Floors) Two Floors Number of Stairs To Enter/Railing? 2 DENNY with R railing have a stair to second floor Home Environment Standard Height Toilet Tub/Shower Doors Employment Status Unemployed Additional Social History Comment Pt lives in [facility] with his girlfriend in a 2 story house. He primarily stays on main floor. He has a dog and a supportive friend per previous EMR. He is unemployed and has a hx of hep C, IV drug abuse, depression, LBP and CVA 2 years ago. He was unable to provide further details regarding his previous CVA but denies any physical limitation. M2 PT-IP Current Condition Start: 04/10/19 11:16 Freq: NEEDED Status: Active Protocol: Document 04/10/19 10:35 (Rec: 04/10/19 12:01 [id number]) Physical Therapy Current Condition Current Condition Evaluation Date 04/10/19 Treatment Diagnosis s/p fall, post op L hip ORIF, impaired gait and activity tolerance Onset Date 04/09/19 Weight Bearing Status Weight Bearing Status Touch Down Weight Bearing Allowed Weight Bearing Amount (enter % for 6 weeks on L hip or #) (%) M3 PT-IP Subjective Start: 04/10/19 11:16 Freq: NEEDED Status: Active Protocol: Document 04/10/19 10:35 (Rec: 04/10/19 12:01 [id number]) Subjective Physical Therapy Visit Type Type Initial Evaluation Visit Start Time 10:35 Visit Stop Time 11:15 Total Visit Minutes 40 Notes Per RN, pt has been feeling nauseated and sleepy. Only respond to simple questions and has not been getting OOB. Number of CRYOGENICS REPAIRER Visits 0 Physical Therapy Visit Comments Patient Comments my pain is at 9/10 Patient Goals To return home. Therapy Pain Assessment Pain When Pain Assessed During Mobility Pain Present Pain Present Pain Reported Location Left leg Intensity 9 Scale Used Numeric (1 - 10) Description Acute Pain Behaviors Facial Grimacing Guarding Pain Management Techniques Modification of Treatment Re-positioning Timing of Activity with Medications M4 PT-IP Mobility and Gait Start: 04/10/19 11:16 Freq: NEEDED Status: Active Protocol: Document 04/10/19 10:35 (Rec: 04/10/19 12:01 [id number]) PT-Bed Mobility Assessment Rolling Level of Assist Contact Guard Assistance Supine to Sit Supine to Sit Minimal Assistance Head of Bed Elevated Bedrails Sit to Supine Sit to Supine Minimal Assistance Head of Bed Elevated Bedrails Scooting Scooting to Edge of Bed Contact Guard Assistance Scooting Up and Down in Bed Contact Guard Assistance PT-Transfer Assessment Sit to and From Stand Sit to and from Stand Minimal Assistance 1 Person Assistance 2 Person Assistance Use of Upper Extremities Equipment Transfer Assistive Device Gait Belt Front Wheeled Walker Transfers Transfer Destination Bed Bedside Commode Transfer Technique Stand Step Pivot Transfer Ability Level of Assist Minimal Assistance 2 Person Assistance Use of Upper Extremities Comments Mobility Comments Pt was in bed upon assessment. Pt was able to perform supine to long sit and required min A to lift his LLE to get to EOB on L side. He then stood up with min A x2 pa and FWW. He stand pivot transfer to his R [place] to [facility] [place]. Pt also stood for 5 mins for clean up and then return to bed with min A as well to lift his LLE. He is Able to maintain TDWB the whole time but has a poor eccentric lowering from stand to sit. Gait Assessment Gait Gait Assistance Required: Minimum Assistance Distance (Feet) 4 Able to Maintain Weight Bearing Status Yes During Gait Assistive Devices Assistive Device Gait Belt Front Wheeled Walker Orthotic/Prosthetic Devices or Brace: No Gait Deviations General Gait Pattern Antalgic Decreased Stride Length Decreased Feet Clearance Flexed Trunk Step-to Gait Factors Limiting Gait Function Factors Limiting Gait Function Decreased Activity Tolerance Decreased Strength Limited Range of Motion Pain Poor Balance Poor Safety Awareness Comments Gait Comments Pt stood up from BSC and amb to EOB with hopping gait and FWW. Was able to make turns but requried cues for sequencing for walker management. Pt reports of fatigue after transfers and amb and requested to return to bed for rest. Stair Climbing Assessment Comments Stair Climbing Comments did not attempt PT-Balance Assessment Sitting Balance and Reactions Static Sitting Balance Ability Normal Dynamic Sitting Balance Ability Normal Standing Balance and Reactions Static Standing Balance Ability Good Dynamic Standing Balance Ability Good Device Used FWW M5 PT-IP Objective Assessments Start: 04/10/19 11:16 Freq: NEEDED Status: Active Protocol: Document 04/10/19 10:35 (Rec: 04/10/19 12:01 [id number]) Orientation Orientation/Cognition Level of Alertness Lethargic Orientation Name Age Birthday Month Date Year Day of Week Place Situation Language Function Ability No Deficits Noted Safety Awareness Decreased Safety Awareness Memory Description No Deficits Noted Comments only answer to simple questions with short and direct answers. Gross Range of Motion Upper Extremity ROM Assessment Within Functional Limits Lower Extremity ROM Assessment Left Impaired Strength Upper Extremity Strength Assessment Within Functional Limits Lower Extremity Strength Assessment Left Impaired Hip 3/5 Coordination Assessment Gross Coordination Gross Coordination WNL Sensation Assessment Sensation Gross Sensation WNL Light Touch Intact Proprioception (Position) Intact Muscle Tone Muscle Tone WNL Yes M6 PT-IP Treatment Start: 04/10/19 11:16 Freq: NEEDED Status: Active Protocol: Document 04/10/19 10:35 (Rec: 04/10/19 12:01 [id number]) Physical Therapy Treatment Education Education Provided Weight Bearing Status Safety M7 PT-IP Assessment and Plan Start: 04/10/19 11:16 Freq: NEEDED Status: Active Protocol: Document 04/10/19 10:35 (Rec: 04/10/19 12:01 [id number]) PT Summary Assessment and Plan Potential Rehabilitation Potential Good Status of Condition at Evaluation Evolving Summary Impairments Pain ROM Strength Balance Cognition Bed Mobility Transfers Gait Activity Tolerance Assessment Summary Pt is mod complexity who is s/ p a fall and now POD#2 L hip ORIF. Pt has a hx of hep C, IV drug abuse, depression, LBP and CVA. He was quite lethargic and only answer simple questions during assessment. He has been nauseated since sx but willing to mobilize with PT and OT. He was able to maintain TDWB during transfers to BSC and amb. Needed min to mod A x 2 people since pt is slightly impulsive and cues for safety awareness. His BP ranged from 135/89 - 151/67 HR 90-120 and O2 sat 88-92%. He appears overall very weak and low activity tolerance at this point which is far from baseline. Pt most likely will need short term rehab to improve his overall mobility, unless pt is able to mobilize independently and safely and meet rehab goals. Goals Bed Mobility Goal Independent Transfer Goal Independent Crutches Front Wheeled Walker Gait Goal Independent Crutches Front Wheel Walker Gait Distance 200 Other Goals clear 2 Steps independently Days to Meet Goals 5 Frequency of Treatment Frequency Of Treatment Twice a Day Treatment Plan Physical Therapy Treatment Plan Bed Mobility Training Transfer Training Gait Training Therapeutic Exercise Balance Retraining Post Op Education Discharge Planning Hot or Cold Pack Other Recommendations and Next Treatment bed mob, transfers, gait Focus training as [place] with LRAD Recommendations To Nursing Amount of Assist Needed 2 Person Assist Discharge Recommendations PT Discharge Recommendations SNF Rehab Other Discharge Recommendations Pt most likely will need short term rehab to improve his overall mobility, unless pt is able to mobilize independently and safely and meet rehab goals. Equipment Needed for Home Before tub trasnfer bench Discharge FWW/ crutches depends on progress
--- NOTE | 2019-04-10 12:32 | PC.NURSE ---
Addendum entered by Marylou Nagel R.N. 04/10/19 15:10: pt just given a percolone for pain and helpful. He is resting and then will be working with pt shortly. Original Note: Pt is A&Ox3, he states that he is nauseous and having some pain to his l.hip. Given oxycodone and reglan for discomfort and helpful. Pt up with PT and is now lying back down comfortably. Denies chills, or temp, and has not thrown up. Pt is an active IVDU.
--- NOTE | 2019-04-10 13:23 | OT.IP.EVAL ---
Current Diagnoses Fracture of unspecified part of neck of left femur, initial encounter for closed fracture (04/08/19) Personal history of other diseases of the respiratory system (04/08/19) Surgery Performed Operation Date: 04/09/19 12:45 Actual Procedures p ORIF Hip DHS(Left) - Kenney Bruno MD Past Medical History (Last Reviewed 04/08/19 @ 23:13 by JONATHAN Sampson) Closed intertrochanteric fracture of left femur (Acute) Drug abuse, IV (Acute) Asthma (Chronic) Chronic back pain greater than 3 months duration (Chronic) Depression (Chronic) History of CVA (cerebrovascular accident) (Inactive) Surgical History (Last Reviewed 04/08/19 @ 23:13 by JONATHAN Sampson) History of hernia repair (Acute) Occupational Therapy Inpatient Evaluation/Re-Eval M1 PT/OT-IP Prior Functional Status Start: 04/10/19 11:46 Freq: NEEDED Status: Active Protocol: Document 04/10/19 12:57 [facility] (Rec: 04/10/19 13:22 [facility] [id number]) Medical Review Prior Functional Status Medical History Reviewed Yes Communication Pt is currently lethargic and only able to answer simple questions. Will cont assess Mobility and Gait Pt states he is independent for mobility at home and community without AD. He does not drive Activities of Daily Living and IADL's independent with ADLs and IADLs without AD. Social History Household Members significant other Living Arrangements House Number of Floors (Floors) Two Floors Number of Stairs To Enter/Railing? 2 DENNY with R railing have a stair to second floor Home Environment Standard Height Toilet Tub/Shower Doors Employment Status Unemployed Additional Social History Comment Pt lives in [facility] with his girlfriend in a 2 story house. He primarily stays on main floor. He is unemployed and has a hx of hep C, IV drug abuse, depression, LBP and CVA 2 years ago. He was unable to provide further details regarding his previous CVA but denies any physical limitation. M2 OT-IP Current Condition Start: 04/10/19 11:46 Freq: Status: Active Protocol: Document 04/10/19 12:57 [facility] (Rec: 04/10/19 13:22 [facility] [id number]) Occupational Therapy Current Condition Current Condition Evaluation Date 04/10/19 Treatment Diagnosis S/P Left hip ORIF Diagnosis Onset Date 04/08/19 Weight Bearing Status Weight Bearing Status Touch Down Weight Bearing Allowed Weight Bearing Amount (enter % LLE TTWB x 6 wks or #) (%) M3 OT- IP Subjective and Pain Start: 04/10/19 11:46 Freq: Status: Active Protocol: Document 04/10/19 12:57 [facility] (Rec: 04/10/19 13:22 [facility] [id number]) OT- Subjective Occupational Therapy Visit Type Type Initial Evaluation Visit Start Time 10:32 Visit Stop Time 11:12 Total Visit Minutes 40 Occupational Therapy Visit Comments Patient Comments Pt very sleepy and lethargic OT Pain Assessment Pain When Pain Assessed During Mobility Pain Present Pain Present Pain Reported Location Left leg Intensity 8 M4 OT- IP ADL's Start: 04/10/19 11:46 Freq: Status: Active Protocol: Document 04/10/19 12:57 [facility] (Rec: 04/10/19 13:22 [facility] [id number]) OT ADL-Grooming Comments OT Grooming Comments Pt able to wash hand after wash cloth given. OT ADL-Dressing General Eval Lower Body Dressing Ability Maximum Assistance Areas Needing Assistance Underpants/Brief Socks Comments OT Dressing Comments MAXA to help aga socks and brief over his feet, management of catheter and drain. OT ADL-Toileting General Evaluation Toileting Ability Moderate Assistance Areas Needing Assistance Manage Clothing Perform Perineal Hygiene Comments OT Toileting Comments Pt trying to initially wipe after bowel movement however needing MODA for completeness. M5 OT- IP IADL's Start: 04/10/19 11:46 Freq: Status: Active Protocol: Document 04/10/19 12:57 [facility] (Rec: 04/10/19 13:22 [facility] [id number]) OT-Instrumental Activities of Daily Living Home Safety Awareness Home Safety Comments To assess more later as pt very lethargic today. Driving Driving Comments Pt states does not drive. M6 OT- IP Functional Cognition Start: 04/10/19 11:46 Freq: Status: Active Protocol: Document 04/10/19 12:57 [facility] (Rec: 04/10/19 13:22 [facility] [id number]) Cognitive Factors Limiting Selfcare Function Cognitive Ability Level of Alertness Alert Lethargic Patient Orientation Name Attention Span Ability Capable of Focused Attention Unable to Sustain Attention Ability to Follow Commands Able to Follow One Step Commands with Increased Time Able to Follow One Step Commands with Repetition Memory Description Short Term Impaired Safety Awareness Underestimates Need for Assistance Cognitive Comments Cognitive Assessment Comments Pt a bit impulsive and needing cues to slow down and reminders to maintain TTWB for LLE. OT- Vision and Hearing OT- Hearing Assessment OT- Hearing Assessment WFL M7 OT- IP Mobility and Balance Start: 04/10/19 11:46 Freq: Status: Active Protocol: Document 04/10/19 12:57 [facility] (Rec: 04/10/19 13:22 [facility] [id number]) OT- Bed Mobility Assessment Supine to Sit Supine to Sit Assist Minimal Assistance 1 Person Assistance Sit to Supine Sit to Supine Assist Minimal Assistance OT-Transfer Assessment Sit to and From Stand Sit to and from Stand Minimal Assistance 2 Person Assistance Transfers Transfer Ability Minimal Assistance 2 Person Assistance Technique Transfer Destination Bed Bedside Commode Devices Transfer Assistive Devices Gait Belt Front Wheeled Walker Comments Mobility Comments MAinly assist to help move LLE for bed mobility and ROULA x 2 to stand as pt a bit impulsive and also to assist with catheter and drain tubes. OT- Balance Assessment Sitting Balance and Reactions Static Sitting Balance Ability Good Standing Balance and Reactions Static Standing Balance Ability Fair M8 OT- IP Objective Assessments Start: 04/10/19 11:46 Freq: Status: Active Protocol: Document 04/10/19 12:57 [facility] (Rec: 04/10/19 13:22 [facility] [id number]) OT Gross Range of Motion Upper Extremity Range of Motion Assessment Within Functional Limits OT Strength Comments Strength Comments Pt not following directions well , per MMT testing, per functional movement at least 3 +/5 throughout for BUE strength. OT-Muscle Tone Assessment Muscle Tone WNL Yes M9 OT- IP Assessment and Plan Start: 04/10/19 11:46 Freq: Status: Active Protocol: Document 04/10/19 12:57 [facility] (Rec: 04/10/19 13:22 [facility] [id number]) OT Summary Assessment and Plan Potential Rehabilitation Potential Fair Analytic Complexity at Evaluation Low Summary OT Impairments Range of Motion Functional Cognition Functional Mobility Grooming Dressing Toileting Bathing Toilet Transfers Shower Transfers Progress Towards Goals Slow Progress due to Pain Slow Progress due to Medical Issues Slow Progress due to Activity Tolerance Slow Progress due to Cognition Assessment Summary Pt low complexity and main barriers are , steps, pt is impulsive at times, decreased strength, activity tolerance, and now needing extensive assist especially for ADl needs. Pt would benefit from short skilled rehab prior to going home. Pt to continue to work with acute OT to work on safety with TTWB of LLE for ADl and functional mobility needs. Goals Grooming Goal Independent Dressing Goal Independent Toileting Goal Independent Bathing Goal Minimal Assistance Toilet Transfer Goal Independent Shower Transfer Goal Contact Guard Assistance Patient/Caregiver Education Goal Demonstrate Post-Op Precautions Caregiver Independent Assisting Patient Days to Meet Goals 5 Frequency of Treatment Frequency Of Treatment Once a Day Treatment Plan OT Treatment Plan ADL Training Functional Cognition Training Functional Mobility Patient/Family Education Discharge Planning Other Treatment Recommendations and Next Stand with FWW for grooming Treatment Focus needs. Discharge Recommendations OT Discharge Recommendations Home with Assistance SNF Rehab Home Equipment Needs Tub Bench, BSC, FWW versus crutches
--- NOTE | 2019-04-10 15:30 | PC.NURSE ---
complaints of pain in left leg-effectively relieved by prn oxycodone, prn reglan given for nausea . Denies wanting to eat, re-approach x4. patient affect flat, one word answers . Hemovac intact-10ml output.
--- NOTE | 2019-04-10 15:35 | PT.IPTN ---
Current Diagnoses Elevated white blood cell count, unspecified (04/08/19) Fracture of unspecified part of neck of left femur, initial encounter for closed fracture (04/08/19) Personal history of other diseases of the respiratory system (04/08/19) Surgery Performed Operation Date: 04/09/19 12:45 Actual Procedures p ORIF Hip DHS(Left) - Kenney Bruno MD Physical Therapy Treatment Note M2 PT-IP Current Condition Start: 04/10/19 11:16 Freq: NEEDED Status: Active Protocol: Document 04/10/19 10:35 (Rec: 04/10/19 12:01 [id number]) Physical Therapy Current Condition Current Condition Evaluation Date 04/10/19 Treatment Diagnosis s/p fall, post op L hip ORIF, impaired gait and activity tolerance Onset Date 04/09/19 Weight Bearing Status Weight Bearing Status Touch Down Weight Bearing Allowed Weight Bearing Amount (enter % for 6 weeks on L hip or #) (%) M3 PT-IP Subjective Start: 04/10/19 11:16 Freq: NEEDED Status: Active Protocol: Document 04/10/19 15:31 [facility] (Rec: 04/10/19 15:35 [facility] [id number]) Subjective Physical Therapy Visit Type Type Patient Refusal Notes Pt refused states he is in to much pain. RN informed. Attempted a second time after pain meds and unable to keep eyes open.
--- NOTE | 2019-04-10 15:49 | CM.DPC ---
DCP: continued: case received, EMR reviewed. POC discussed in Team Rounds. PT was seeing pt, OT order was obtained. Met now with pt and introduced self and role. Pt confirms that he lives with his girlfriend Bridgette as well as her 2 adult daughters Kirstin and Michaela. He anticipates being able to d/c to home with Bridgette and his daughters assisting. He acknowledges that he had been going to [facility] for heroin addiction and was receiving Suboxone as part of this care but says he stopped going a month ago and has been using heroin and methamphetamines since that time. He does say he hopes to resume treatment. He also says that no other members of his household use drugs and they are healthy and able to help me. He wondered how long he would be in the hospital. Encouraged him to discuss this with the physicians but also that the stay would likely be only a couple more days. He says he does expect that Bridgette will be in to see him and to be part of caregiver training. Pt seemed very groggy throughout this discussion but did become more focused and energetic as the conversation proceeded. P: discuss again in Team Rounds tomorrow and check in with pt's family to see if above plan is realistic. Hope to get a clearer sense from Dr. Vick re the pain management plan for this pt in the setting of his opioid addiction history. Have discussed case with CARLO Cardenas and will confer prn with the social work team on this case going forward.
--- NOTE | 2019-04-10 16:49 | PM.PREOP ---
Pre-operative Note Interval Note History & Physical reviewed/Exam performed by Physician: Yes Changes to H&P: No
--- NOTE | 2019-04-10 21:04 | PC.NURSE ---
Pt is sleepy, 89%RA, 92% 2L. pt keeps taking off his O2. 2person assist to the chair. he had a couple bites for dinner, then went back to bed. poor PO intake, only a few sips of water. pt denied nausea. CMS+. SCD's. call light in reach. bed alarm active.
[2019-04-10] MEDS: OXYCODONE IR 10 MG TABLET PO (22:12)
[2019-04-11] VITALS (9 sets, daily range): BP systolic 107–161; BP diastolic 63–82; PULSE 83–107; RESP 16–20; TEMP 36.9–37.6; O2SAT 93–98
[2019-04-11] MEDS: ONDANSETRON 4 MG/2 ML INJ IV (01:43)
[2019-04-11] MEDS: LACTATED RINGERS 1,000 ML 125 ML IV ×2 (01:51→09:34)
[2019-04-11] MEDS: MORPHINE 2 MG/ML INJ 1.5 MG IV ×2 (01:57→09:33)
--- NOTE | 2019-04-11 02:12 | PC.NURSE ---
Went into patient's room to change fluid bag and pt had vomited in bed and on the floor again. Emesis was watery and had a couple of bloody mucus clots in it. Gave Zofran 4 mg IVP and 1.5 mg MS IVP for leg pain he rated at 9/10. Advised patient to vomit in blue barf bag if at all possible. Medium amount of brown drainage visible on aquacell dressing, scant sanguineous drainage in HV. Pt not interested in food or fluids. Small incontinent smear in brief. Mckeon draining clear yellow. Productive cough, course LS throughout. HR regular this shift.
[2019-04-11] MEDS: OXYCODONE IR 10 MG TABLET PO ×5 (03:09→23:56)
[2019-04-11 06:18] LABS: Add Manual Diff / Slide Review NO; Basophils Absolute Auto 0 /uL (0-100); Basophils Percent Auto 0.2 % (0-2); Eosinophils Absolute Auto 0 /uL (0-450); Eosinophils Percent Auto 0.1 % (2-4); Lymphocytes Absolute Auto 1100 /uL (1100-4500); Lymphocytes Percent Auto 8.6 % (25-40); Mean Corpuscular HGB Conc 34.5 % (30-36); Mean Corpuscular Hemoglobin 26.3 PG (26-34); Mean Corpuscular Volume 76.1 fL (80-100); Monocytes Absolute Auto 900 /uL (0-900); Monocytes Percent Auto 6.7 % (3-14); Neutrophils Absolute Auto 11200 /uL (1500-7000); Neutrophils Percent Auto 84.4 % (50-75); Platelet Count 209 X10^3/uL (150-400); Red Blood Cell Count 3.81 X10^6/uL (4.5-5.9); White Blood Cell Count 13.3 X10^3/uL (4.5-11.0)
[2019-04-11] MEDS: ALBUTEROL/IPRATROPIUM 3 ML AMPUL INH ×2 (07:40→17:37)
--- NOTE | 2019-04-11 08:29 | P.PN_ITS ---
Subjective Date Patient Seen: 04/11/19 Time Patient Seen: 08:15 Interval history: The patient refused physical therapy at 1 attempt yesterday and was too somnolent the 2nd time. He reports he is in significant discomfort. Exam Vital Signs (past 8 hours): - 04/11/19 01:45 04/11/19 05:53 04/11/19 07:42 Temperature 98.7 F 99.2 F Pulse Rate 90 87 92 H Respiratory Rate Blood Pressure 161/81 H 136/82 Pulse Oximetry 95 94 95 Fraction of Inspired Oxygen 21 Oxygen Delivery Method Room Air Oxygen Flow Rate 0 Narrative Exam Narrative: Left hip wound is dressed. The patient both spontaneously and on command moves the left hip with minimal discomfort. His left calf is soft light touch and motion are intact in the left lower extremity. Objective Labs Result Diagrams: 04/11/19 05:58 04/09/19 05:25 Labs: Laboratory Results - last 24 hr 04/11/19 05:58 WBC 13.3 H RBC 3.81 L Hgb 10.0 L Hct 29.0 L MCV 76.1 L MCH 26.3 MCHC 34.5 RDW 16.0 H Plt Count 209 Neut % (Auto) 84.4 H Lymph % (Auto) 8.6 L [place] % (Auto) 6.7 Eos % (Auto) 0.1 L Baso % (Auto) 0.2 Neut # (Auto) 02936 H Lymph # (Auto) 1100 [place] # (Auto) 900 Eos # (Auto) 0 Baso # (Auto) 0 Assessment & Plan Post-op Postoperative Procedures Operation Date: 04/09/19 12:45 Actual Procedures Side Surgeon p ORIF Hip DHS Left Kenney Bruno MD Postoperative day: 2 Postoperative status: marginal pain control Postoperative status narrative: The patient is postoperative day 2 status post left hip dynamic hip screw. He has had alternating bouts of poor pain control and somnolence which have limited his progress with physical therapy. Postoperative plan: routine post-op care and ambulate Postoperative plan narrative: I have explained to the patient that the postoperative pain he is experiencing is normal for this procedure and the injury he has incurred. It is necessary that he cooperate extensively with physical therapy to gain the skills necessary to return to his home environment. He appears to understand. Time Spent With Patient less than 15 minutes Quality VTE Deep Vein Thrombosis/Pulmonary Embolism Present on Admission: No
[2019-04-11] MEDS: METOCLOPRAMIDE 10 MG/2 ML INJ IV (09:17)
--- NOTE | 2019-04-11 09:45 | PC.NURSE ---
Addendum entered by Galina Navarro R.N. 04/11/19 14:41: Pt was able to ambulate with PT TT WB and able to follow instructions. Medicated for pain . Original Note: Am shift Pt is alert to self, withdrawn and not very interactive with staff, this RN having to ask Pt 2 and 3 times to get assessment questions answered. Per [employer] OPER[employer]IST, emesis with dark blood clot this AM. Medicated for nausea and pain. Pt feels that pain manegemnet has not been adequate, but also is not asking for pain medication, unless staff offers. Education provided, but Pt is clearly not in a mindset currently to do well with education. Will reproach.
--- NOTE | 2019-04-11 10:40 | PM.PN.1 ---
Subjective Date Patient Seen: 04/11/19 Time Patient Seen: 10:40 Interval history: He is seen today to follow-up the left hip fracture, heroin use and a new problem of vomiting with streaks of blood in the emesis. He tells me he has been nauseated and vomiting since yesterday. The blood was noted this morning. That is discussed with General surgery. His urinary catheter will be removed today. The white count is 13.3 with a hemoglobin of 10.0. It is possible that the vomiting is caused by his IV morphine and so that will be stopped. Unfortunately with the blood in the emesis the Lovenox will also need to be held. After the bleeding a repeat CBC was done this afternoon showing a white count of 14 and hemoglobin of 10.6. Exam Vital Signs (past 8 hours): - 04/11/19 05:53 04/11/19 07:42 04/11/19 09:00 Temperature 99.2 F 99 F Pulse Rate 87 92 H 97 H Respiratory Rate 19 16 18 Blood Pressure 136/82 141/81 H Pulse Oximetry 94 95 97 Fraction of Inspired Oxygen 21 Oxygen Delivery Method Room Air Oxygen Flow Rate 0 Narrative Exam Narrative: He is alert and oriented x3. He is curled up in bed looking quite miserable. Later on in the day he gets up and walks quite well with physical therapy. Abdomen is soft, bowel sounds positive, nontender, no organomegaly. Heart is regular rate and rhythm without murmur. Lungs are clear to auscultation bilaterally. Extremities have no ankle edema. The left hip honeycomb dressing has some staining but appears to be uninfected and to still be sealed. Objective Labs Result Diagrams: 04/11/19 14:30 04/09/19 05:25 Labs: Laboratory Results - last 24 hr 04/11/19 05:58 WBC 13.3 H RBC 3.81 L Hgb 10.0 L Hct 29.0 L MCV 76.1 L MCH 26.3 MCHC 34.5 RDW 16.0 H Plt Count 209 Neut % (Auto) 84.4 H Lymph % (Auto) 8.6 L Burke % (Auto) 6.7 Eos % (Auto) 0.1 L Baso % (Auto) 0.2 Neut # (Auto) 24063 H Lymph # (Auto) 1100 Burke # (Auto) 900 Eos # (Auto) 0 Baso # (Auto) 0 Assessment & Plan Assessment & Plan narrative: (1) Substance abuse or dependence: Problem details: No signs of withdrawal or overt delirium. Current visit: Yes Status: Acute (2) History of asthma: Problem details: Chronic Current visit: Yes Status: Acute (3) Fracture of proximal end of left femur: Problem details: Doing well postoperative day 2, followed by Orthopedics. In the afternoon today he did very well with physical therapy. They anticipate he will be able to be discharged to home. Qualifiers: Encounter type: initial encounter Fracture healing: Fracture type: closed Open fracture type: Qualified Code(s): S72.002A - Fracture of unspecified part of neck of left femur, initial encounter for closed fracture Current visit: Yes Status: Acute (4) Leukocytosis: Problem details: Repeat white blood count of 13 and 14 today. This appears to be a postoperative elevation without current signs of infection. Current visit: Yes Status: Acute Hematemesis -hold Lovenox and start on IV Protonix -discussed with general surgery-Dr. Sen and agreed to consult/request EGD if this does not resolve with PPI therapy. -most likely this is gastric erosions/gastritis related to surgical stress. Quality VTE Deep Vein Thrombosis/Pulmonary Embolism Present on Admission: No
--- NOTE | 2019-04-11 11:45 | PT.IPTN ---
Current Diagnoses Elevated white blood cell count, unspecified (04/08/19) Fracture of unspecified part of neck of left femur, initial encounter for closed fracture (04/08/19) Personal history of other diseases of the respiratory system (04/08/19) Surgery Performed Operation Date: 04/09/19 12:45 Actual Procedures p ORIF Hip DHS(Left) - Kenney Bruno MD Physical Therapy Treatment Note M2 PT-IP Current Condition Start: 04/10/19 11:16 Freq: NEEDED Status: Active Protocol: Document 04/10/19 10:35 HH (Rec: 04/10/19 12:01 HH [id number]) Physical Therapy Current Condition Current Condition Evaluation Date 04/10/19 Treatment Diagnosis s/p fall, post op L hip ORIF, impaired gait and activity tolerance Onset Date 04/09/19 Weight Bearing Status Weight Bearing Status Touch Down Weight Bearing Allowed Weight Bearing Amount (enter % for 6 weeks on L hip or #) (%) M3 PT-IP Subjective Start: 04/10/19 11:16 Freq: NEEDED Status: Active Protocol: Document 04/11/19 11:45 GGD (Rec: 04/11/19 12:36 GGD [id number]) Subjective Physical Therapy Visit Type Type Treatment Note Visit Start Time 11:30 Visit Stop Time 11:45 Total Visit Minutes 15 Physical Therapy Visit Comments Patient Comments Pt states he is willing to get up to the chair for lunch. Therapy Pain Assessment Pain When Pain Assessed During Mobility Pain Present Pain Present Pain Reported M4 PT-IP Mobility and Gait Start: 04/10/19 11:16 Freq: NEEDED Status: Active Protocol: Document 04/11/19 11:45 GGD (Rec: 04/11/19 12:36 GGD [id number]) PT-Bed Mobility Assessment Rolling Level of Assist Standby Assistance Supine to Sit Supine to Sit Minimal Assistance 1 Person Assistance Scooting Scooting to Edge of Bed Standby Assistance PT-Transfer Assessment Sit to and From Stand Sit to and from Stand Contact Guard Assistance 1 Person Assistance Use of Upper Extremities Equipment Transfer Assistive Device Gait Belt Front Wheeled Walker Transfers Transfer Destination Chair Transfer Ability Level of Assist Contact Guard Assistance 1 Person Assistance Use of Upper Extremities Comments Mobility Comments Pt need min A for left LE, but CGA for all other mobility. Gait Assessment Gait Gait Assistance Required: Contact Guard Assist Distance (Feet) 8 Able to Maintain Weight Bearing Status Yes During Gait Assistive Devices Assistive Device Gait Belt Front Wheeled Walker Orthotic/Prosthetic Devices or Brace: No Gait Deviations General Gait Pattern Antalgic Decreased Stride Length Decreased Feet Clearance Flexed Trunk Step-to Gait Factors Limiting Gait Function Factors Limiting Gait Function Decreased Activity Tolerance Decreased Strength Limited Range of Motion Pain Poor Balance Poor Safety Awareness Stair Climbing Assessment Comments Stair Climbing Comments Pt states no steps if enter from front door. M5 PT-IP Objective Assessments Start: 04/10/19 11:16 Freq: NEEDED Status: Active Protocol: Document 04/10/19 10:35 HH (Rec: 04/10/19 12:01 HH [id number]) Orientation Orientation/Cognition Level of Alertness Lethargic Orientation Name Age Birthday Month Date Year Day of Week Place Situation Language Function Ability No Deficits Noted Safety Awareness Decreased Safety Awareness Memory Description No Deficits Noted Comments only answer to simple questions with short and direct answers. Gross Range of Motion Upper Extremity ROM Assessment Within Functional Limits Lower Extremity ROM Assessment Left Impaired Strength Upper Extremity Strength Assessment Within Functional Limits Lower Extremity Strength Assessment Left Impaired Hip 3/5 Coordination Assessment Gross Coordination Gross Coordination WNL Sensation Assessment Sensation Gross Sensation WNL Light Touch Intact Proprioception (Position) Intact Muscle Tone Muscle Tone WNL Yes M6 PT-IP Treatment Start: 04/10/19 11:16 Freq: NEEDED Status: Active Protocol: Document 04/11/19 11:45 GGD (Rec: 04/11/19 12:36 GGD [id number]) Physical Therapy Treatment Education Education Provided Weight Bearing Status Safety M7 PT-IP Assessment and Plan Start: 04/10/19 11:16 Freq: NEEDED Status: Active Protocol: Document 04/11/19 11:45 GGD (Rec: 04/11/19 12:36 GGD [id number]) PT Summary Assessment and Plan Summary Assessment Summary Pt improving with mobility. He was able to progress his gait with hip precautions. He did need cues for pace and impulsive with mobility. Frequency of Treatment Frequency Of Treatment Twice a Day Treatment Plan Physical Therapy Treatment Plan Bed Mobility Training Transfer Training Gait Training Therapeutic Exercise Balance Retraining Post Op Education Discharge Planning Hot or Cold Pack Other Recommendations and Next Treatment bed mob, transfers, gait Focus training as [place]ol[place] with LRAD Recommendations To Nursing Amount of Assist Needed 2 Person Assist Discharge Recommendations PT Discharge Recommendations Home with Assistance Home Health SNF Rehab Other Discharge Recommendations SNF vs Home Equipment Needed for Home Before tub transfer bench Discharge FWW
--- NOTE | 2019-04-11 14:14 | CM.DPC ---
DCP: continued: Case discussed today in [facility] with Dr. Vick. He reported that pt was vomiting blood and he was going to consult with surgery. Discussed also the need for appropriate medication management in the setting of pt's hx of opioid addiction. Pt was able to do some work with PT today and seems to be making progress toward his home plan. OT is ordered but no notes for today are yet in place.
[2019-04-11 14:38] LABS: Add Manual Diff / Slide Review NO; Basophils Absolute Auto 0 /uL (0-100); Basophils Percent Auto 0.2 % (0-2); Eosinophils Absolute Auto 0 /uL (0-450); Hematocrit 31.8 % (41-53); Hemoglobin 10.6 g/dL (13.5-17.5); Lymphocytes Absolute Auto 1200 /uL (1100-4500); Lymphocytes Percent Auto 8.6 % (25-40); Mean Corpuscular HGB Conc 33.2 % (30-36); Mean Corpuscular Hemoglobin 25.4 PG (26-34); Mean Corpuscular Volume 76.6 fL (80-100); Monocytes Absolute Auto 1100 /uL (0-900); Neutrophils Absolute Auto 11900 /uL (1500-7000); Neutrophils Percent Auto 83.2 % (50-75); Platelet Count 253 X10^3/uL (150-400); Red Blood Cell Count 4.16 X10^6/uL (4.5-5.9); Red Cell Distribution Width 15.8 % (11.6-14.8); White Blood Cell Count 14.3 X10^3/uL (4.5-11.0)
[2019-04-11] MEDS: DOCUSATE 100 MG CAPSULE PO ×2 (14:38→20:10)
--- NOTE | 2019-04-11 14:50 | PT.IPTN ---
Current Diagnoses Elevated white blood cell count, unspecified (04/08/19) Fracture of unspecified part of neck of left femur, initial encounter for closed fracture (04/08/19) Personal history of other diseases of the respiratory system (04/08/19) Surgery Performed Operation Date: 04/09/19 12:45 Actual Procedures p ORIF Hip DHS(Left) - Kenney Bruno MD Physical Therapy Treatment Note M2 PT-IP Current Condition Start: 04/10/19 11:16 Freq: NEEDED Status: Active Protocol: Document 04/10/19 10:35 HH (Rec: 04/10/19 12:01 HH [id number]) Physical Therapy Current Condition Current Condition Evaluation Date 04/10/19 Treatment Diagnosis s/p fall, post op L hip ORIF, impaired gait and activity tolerance Onset Date 04/09/19 Weight Bearing Status Weight Bearing Status Touch Down Weight Bearing Allowed Weight Bearing Amount (enter % for 6 weeks on L hip or #) (%) M3 PT-IP Subjective Start: 04/10/19 11:16 Freq: NEEDED Status: Active Protocol: Document 04/11/19 14:59 GGD (Rec: 04/11/19 15:17 GGD [id number]) Subjective Physical Therapy Visit Type Type Treatment Note Visit Start Time 14:25 Visit Stop Time 14:55 Total Visit Minutes 30 Number of MEDICAL DATA ENTRY CLERK Visits 1 Physical Therapy Visit Comments Patient Comments Pt willing to work with therapy. Therapy Pain Assessment Pain When Pain Assessed During Mobility Pain Present Pain Present Pain Reported M4 PT-IP Mobility and Gait Start: 04/10/19 11:16 Freq: NEEDED Status: Active Protocol: Document 04/11/19 14:59 GGD (Rec: 04/11/19 15:17 GGD [id number]) PT-Bed Mobility Assessment Rolling Level of Assist Standby Assistance Supine to Sit Supine to Sit Minimal Assistance 1 Person Assistance Scooting Scooting to Edge of Bed Standby Assistance PT-Transfer Assessment Sit to and From Stand Sit to and from Stand Contact Guard Assistance 1 Person Assistance Use of Upper Extremities Equipment Transfer Assistive Device Gait Belt Front Wheeled Walker Transfers Transfer Destination Chair Transfer Ability Level of Assist Contact Guard Assistance 1 Person Assistance Use of Upper Extremities Comments Mobility Comments Pt need min A for left LE, but CGA for all other mobility. Gait Assessment Gait Gait Assistance Required: Contact Guard Assist Distance (Feet) 50 Able to Maintain Weight Bearing Status Yes During Gait Assistive Devices Assistive Device Gait Belt Front Wheeled Walker Orthotic/Prosthetic Devices or Brace: No Gait Deviations General Gait Pattern Antalgic Decreased Stride Length Decreased Feet Clearance Flexed Trunk Step-to Gait Factors Limiting Gait Function Factors Limiting Gait Function Decreased Activity Tolerance Decreased Strength Limited Range of Motion Pain Poor Balance Poor Safety Awareness Comments Gait Comments Pt need min cues for TTWB with sit to stand and turns. M5 PT-IP Objective Assessments Start: 04/10/19 11:16 Freq: NEEDED Status: Active Protocol: Document 04/10/19 10:35 HH (Rec: 04/10/19 12:01 HH [id number]) Orientation Orientation/Cognition Level of Alertness Lethargic Orientation Name Age Birthday Month Date Year Day of Week Place Situation Language Function Ability No Deficits Noted Safety Awareness Decreased Safety Awareness Memory Description No Deficits Noted Comments only answer to simple questions with short and direct answers. Gross Range of Motion Upper Extremity ROM Assessment Within Functional Limits Lower Extremity ROM Assessment Left Impaired Strength Upper Extremity Strength Assessment Within Functional Limits Lower Extremity Strength Assessment Left Impaired Hip 3/5 Coordination Assessment Gross Coordination Gross Coordination WNL Sensation Assessment Sensation Gross Sensation WNL Light Touch Intact Proprioception (Position) Intact Muscle Tone Muscle Tone WNL Yes M6 PT-IP Treatment Start: 04/10/19 11:16 Freq: NEEDED Status: Active Protocol: Document 04/11/19 14:59 GGD (Rec: 04/11/19 15:17 GGD [id number]) Physical Therapy Treatment Exercises Exercises Ankle Pumps Quad Sets Short Arc Quads Education Education Provided Weight Bearing Status Safety M7 PT-IP Assessment and Plan Start: 04/10/19 11:16 Freq: NEEDED Status: Active Protocol: Document 04/11/19 14:59 GGD (Rec: 04/11/19 15:17 GGD [id number]) PT Summary Assessment and Plan Summary Assessment Summary Pt improving with mobility. He was able to progress gait with min cues for weight bearing. He is impulsive with mobility, but no LOB. Pt hopes to D/C home when medically stable. Frequency of Treatment Frequency Of Treatment Twice a Day Treatment Plan Physical Therapy Treatment Plan Bed Mobility Training Transfer Training Gait Training Therapeutic Exercise Balance Retraining Post Op Education Discharge Planning Hot or Cold Pack Other Recommendations and Next Treatment bed mob, transfers, gait Focus training as [place] with LRAD Recommendations To Nursing Amount of Assist Needed 1 Person Assist Discharge Recommendations PT Discharge Recommendations Home with Assistance Home Health SNF Rehab Other Discharge Recommendations SNF vs Home Equipment Needed for Home Before tub trasnfer bench Discharge FWW
--- NOTE | 2019-04-11 15:54 | OT.IP.TRT ---
Current Diagnoses Elevated white blood cell count, unspecified (04/08/19) Fracture of unspecified part of neck of left femur, initial encounter for closed fracture (04/08/19) Personal history of other diseases of the respiratory system (04/08/19) Surgery Performed Operation Date: 04/09/19 12:45 Actual Procedures p ORIF Hip DHS(Left) - Kenney Bruno MD Occupational Therapy Treatment Note M2 OT-IP Current Condition Start: 04/10/19 11:46 Freq: Status: Active Protocol: Document 04/10/19 12:57 CCC (Rec: 04/10/19 13:22 CCC [email or web address]) Occupational Therapy Current Condition Current Condition Evaluation Date 04/10/19 Treatment Diagnosis S/P Left hip ORIF Diagnosis Onset Date 04/08/19 Weight Bearing Status Weight Bearing Status Touch Down Weight Bearing Allowed Weight Bearing Amount (enter % LLE TTWB x 6 wks or #) (%) M3 OT- IP Subjective and Pain Start: 04/10/19 11:46 Freq: Status: Active Protocol: Document 04/11/19 15:46 CGR (Rec: 04/11/19 15:53 CGR [email or web address]) OT- Subjective Occupational Therapy Visit Type Type Treatment Note Visit Start Time 15:04 Visit Stop Time 15:20 Total Visit Minutes 16 Notes Pt supine in bed but agreeable to demonstrating abilities to perform self care. OT Pain Assessment Pain When Pain Assessed At Rest Pain Present Pain Present Pain Reported Location Left leg Intensity 8 Scale Used Numeric (1 - 10) M4 OT- IP ADL's Start: 04/10/19 11:46 Freq: Status: Active Protocol: Document 04/11/19 15:46 CGR (Rec: 04/11/19 15:53 CGR [id number]) OT ADL-Grooming General Evaluation Grooming Ability Standby Assistance Areas Needing Assistance Retrieving/Set-up of Grooming Items Comments OT Grooming Comments standing at sink for washing hands OT ADL-Oral Care General Eval Oral Care Ability Standby Assistance Areas of Assistance Brushing Teeth Comments Oral Care Comments Standing at sink for brushing teeth. OT ADL-Dressing General Eval Lower Body Dressing Ability Moderate Assistance Areas Needing Assistance Socks Comments OT Dressing Comments Pt is able to doff and don sock to the RLE but needed assist to the LLE. OT ADL-Toileting General Evaluation Toileting Ability Standby Assistance Devices Toileting Assistive Devices Grab Bars M5 OT- IP IADL's Start: 04/10/19 11:46 Freq: Status: Active Protocol: Document 04/10/19 12:57 [facility] (Rec: 04/10/19 13:22 [facility] [id number]) OT-Instrumental Activities of Daily Living Home Safety Awareness Home Safety Comments To assess more later as pt very lethargic today. Driving Driving Comments Pt states does not drive. M6 OT- IP Functional Cognition Start: 04/10/19 11:46 Freq: Status: Active Protocol: Document 04/10/19 12:57 [facility] (Rec: 04/10/19 13:22 [facility] [id number]) Cognitive Factors Limiting Selfcare Function Cognitive Ability Level of Alertness Alert Lethargic Patient Orientation Name Attention Span Ability Capable of Focused Attention Unable to Sustain Attention Ability to Follow Commands Able to Follow One Step Commands with Increased Time Able to Follow One Step Commands with Repetition Memory Description Short Term Impaired Safety Awareness Underestimates Need for Assistance Cognitive Comments Cognitive Assessment Comments Pt a bit impulsive and needign cues to slow down and reminders to maintain TTWB for LLE. OT- Vision and Hearing OT- Hearing Assessment OT- Hearing Assessment WFL M7 OT- IP Mobility and Balance Start: 04/10/19 11:46 Freq: Status: Active Protocol: Document 04/11/19 15:46 CGR (Rec: 04/11/19 15:53 CGR [email or web address]) OT- Bed Mobility Assessment Rolling Level of Assistance Standby Assistance Supine to Sit Supine to Sit Assist Standby Assistance Sit to Supine Sit to Supine Assist Standby Assistance Scooting Scooting to Edge of Bed Standby Assistance Scooting Up and Down in Bed Standby Assistance OT-Transfer Assessment Sit to and From Stand Sit to and from Stand Contact Guard Assistance Transfers Transfer Ability Contact Guard Assistance Technique Transfer Destination Bed Toilet Devices Transfer Assistive Devices Gait Belt Front Wheeled Walker Comments Mobility Comments Needs reminders for TTWB and for proper use of the walker and hand placement during transfers OT- Gait Assessment Gait Gait Assistance Required: Contact Guard Assist Able to Maintain Weight Bearing Status No During Gait Assistive Devices Assistive Device Gait Belt Front Wheeled Walker Comments Gait Ability Comments Pt needs VC for using walker correctly and safely OT- Balance Assessment Sitting Balance and Reactions Static Sitting Balance Ability Good Dynamic Sitting Balance Ability Good M8 OT- IP Objective Assessments Start: 04/10/19 11:46 Freq: Status: Active Protocol: Document 04/10/19 12:57 CCC (Rec: 04/10/19 13:22 CCC [email or web address]) OT Gross Range of Motion Upper Extremity Range of Motion Assessment Within Functional Limits OT Strength Comments Strength Comments Pt not following directions well , per MMT testing, per functional movement at least 3 +/5 throughout for BUE strength. OT-Muscle Tone Assessment Muscle Tone WNL Yes M9 OT- IP Assessment and Plan Start: 04/10/19 11:46 Freq: Status: Active Protocol: Document 04/11/19 15:46 CGR (Rec: 04/11/19 15:53 CGR [email or web address]) OT Summary Assessment and Plan Potential Rehabilitation Potential Fair Summary OT Impairments Range of Motion Functional Cognition Functional Mobility Grooming Dressing Toileting Bathing Toilet Transfers Shower Transfers Progress Towards Goals Slow Progress due to Pain Slow Progress due to Medical Issues Slow Progress due to Activity Tolerance Slow Progress due to Cognition Assessment Summary Pt presents with impulsivity for mobility and need VC for proper use of equipment and maintaining TTWB to the LLE. Pt will benefit from continued therapy services. Recommend a tub shower bench for home discharge. Goals Grooming Goal Independent Dressing Goal Independent Toileting Goal Independent Bathing Goal Minimal Assistance Toilet Transfer Goal Independent Shower Transfer Goal Contact Guard Assistance Patient/Caregiver Education Goal Demonstrate Post-Op Precautions Caregiver Independent Assisting Patient Days to Meet Goals 4 Frequency of Treatment Frequency Of Treatment Once a Day Treatment Plan OT Treatment Plan ADL Training Functional Cognition Training Functional Mobility Patient/Family Education Discharge Planning Other Treatment Recommendations and Next Stand with FWW for grooming Treatment Focus needs. Discharge Recommendations OT Discharge Recommendations Home with Assistance SNF Rehab Home Equipment Needs Tub Bench, BSC, FWW versus crutches
[2019-04-11] MEDS: MAGNESIUM HYDROXIDE 30 ML UDC PO (20:18)
[2019-04-12 01:36] VITALS: TEMP 37.6
--- NOTE | 2019-04-12 04:32 | PC.NURSE ---
Pt much more sociable with staff and eating and drinking now. Denies N/V. Voiding in urinal, clear yellow. Rates pain high (8-9/10) with low FLACC score.
[2019-04-12 05:14] VITALS: PULSE 97; RESP 14; O2SAT 95
[2019-04-12] MEDS: ALBUTEROL/IPRATROPIUM 3 ML AMPUL INH (05:14)
[2019-04-12] MEDS: OXYCODONE IR 10 MG TABLET PO ×3 (05:35→09:40)
[2019-04-12 06:00] VITALS: BP 101/63; PULSE 73; RESP 19; TEMP 37.1; O2SAT 96
[2019-04-12 06:12] LABS: Add Manual Diff / Slide Review NO; Basophils Absolute Auto 0 /uL (0-100); Basophils Percent Auto 0.2 % (0-2); Eosinophils Absolute Auto 100 /uL (0-450); Eosinophils Percent Auto 0.4 % (2-4); Hematocrit 30.5 % (41-53); Hemoglobin 10.2 g/dL (13.5-17.5); Lymphocytes Absolute Auto 3300 /uL (1100-4500); Lymphocytes Percent Auto 18.2 % (25-40); Mean Corpuscular HGB Conc 33.6 % (30-36); Mean Corpuscular Hemoglobin 25.8 PG (26-34); Mean Corpuscular Volume 76.7 fL (80-100); Monocytes Absolute Auto 1700 /uL (0-900); Monocytes Percent Auto 9.4 % (3-14); Neutrophils Absolute Auto 13100 /uL (1500-7000); Neutrophils Percent Auto 71.8 % (50-75); Platelet Count 301 X10^3/uL (150-400); Red Blood Cell Count 3.97 X10^6/uL (4.5-5.9); White Blood Cell Count 18.2 X10^3/uL (4.5-11.0)
[2019-04-12 06:28] LABS: BUN Creatinine Ratio 28.3 (6-22); Blood Urea Nitrogen 17 mg/dL (9-20); Calcium 7.9 mg/dL (8.4-10.2); Carbon Dioxide 28 mmol/L (22-32); Chloride 100 mmol/L (98-107); Estimated Glomerular Filt Rate > 60.0 mL/min (>60); Glucose 150 mg/dL (70-100); HEMOLYSIS < 15 (0-50); Potassium 3.2 mmol/L (3.4-5.1); Sodium 135 mmol/L (137-145)
[2019-04-12 07:35] VITALS: BP 112/68; PULSE 99; RESP 16; TEMP 36.6; O2SAT 97
[2019-04-12] MEDS: PANTOPRAZOLE 40 MG VIAL IV (08:03)
[2019-04-12] MEDS: MAGNESIUM HYDROXIDE 30 ML UDC PO (08:03)
[2019-04-12] MEDS: DOCUSATE 100 MG CAPSULE PO (08:04)
--- NOTE | 2019-04-12 10:19 | CM.DANOTE ---
Addendum entered by Jazmyn Gray LPN 04/12/19 14:50: Pt's girlfriend's daughter Chikis arrived at about 1230 and met with her and pt. Pt has now decided that he will go back to [place] with Chikis. He is scheduled for [facility] for Saturday and will get at ride here with his friend but he notes that although my friend is clean many of the people that are in and out of his home are not and I think it is better to go back to the [place]. Pt requested a ferry ticket for for the car ride back to [place] as has very limited funds and not enough money with him to pay for this. They were provided with a priority board pass for the 1829 ferry to [place]. Requested assist from the RN coordinator Sagrario who noted she was not familiar with the ferry voucher system. Spoke then with Admitting: ER medical receptionist assistant and spoke with Sagrario. She stated that she was unfamiliar with the process but that Eva, who had just left for lunch, would know. Spoke later with Eva who knew that the vouchers were managed by Admitting and located 2 of them in their safe. She then noted that both were . She contacted her manager hair [facility] who has now confirmed for her that, since this is a Saturday, there is nothing that can be done. She notes that the process is to make sure that these vouchers are up to date and typically they have 5 available. Pt and Chikis are doing grocery shopping now and have called in to check on the voucher. Information is relayed to them with apologies. RN coordinator Sagrario was updated. Addendum entered by Jazmyn Gray LPN 04/12/19 11:19: Met now with pt and a friend with whom he will stay. The friend reports he goes to [facility] for their addiction recovery outpt program but to [facility] for his Suboxone and I have not used at all in 9 months. Pt reports that this will be a good place for him to stay for a few days so that he can re establish with [facility]. Pt has also been part of [facility] and on methadone treatment in the past but reported it was not possible to come to the clinic every day from [place] and thus that did not work for him. He reports he is very committed to getting back into recovery and appreciates that Dr. Goode did provide him with some pain medication. He will contact [facility] tomorrow. Pt is poised to d/c: discussed with KWASI Mojica who reports that Dr. Goode is now conferring with Dr. Alcantara (on for ortho team today) and that some lab levels are high.... Pt and friend wishing to go outside just for a few minutes and then return. Galina has cautioned them that pt cannot leave the building until he is discharged. Original Note: DCP: continued: discussed case this morning in Team Rounds. Dr. Goode, taking over as hospitalist, states pt is ready for d/c, that he will stay in [place] for a couple of days, plans to resume his outpt heroin addiction care with [facility] and says he asked for a week of pain medication which she will not provide. Pt is currently in the bathroom. ANKIT Rosales does plan to see him this morning and will issue him a FWW through the consigment closet. Pt has not done stairs and will need to do this prior to d/c if pt is agreeable to same. Will check in with pt. He is currently in the shower, has visitors in his room waiting for him
--- NOTE | 2019-04-12 10:42 | PM.DS.1 ---
History of Present Illness Date Patient Seen: 04/08/19 Chief complaint: Fall, leg pain Narrative: Written by Mica CASTILLO: Fahad Ramesh is a 59-year-old male with a medical history of hepatitis C, IV drug abuse, asthma, depression, chronic back pain, and a CVA 1 year ago who was running toward his bank when he tripped and fell. He states that he fell hitting his head and left hip and feels that his hip observed the brunt of the fall. He did state that he heard something crack. He states that he has currently has 9/10 pain. Patient denies headache, fever sweats or chills, neck pain, difficulty breathing, chest pain, nausea or vomiting, dysuria, diarrhea or constipation. Patient did inform me that he is going to a Suboxone clinic in [facility] he states as initials OIP. I was able to locate [facility] program in [place] through a web search. Patient states his last use of heroin was 2 months ago however he informed the ED provider that his last use was 10 days ago. Urine toxicology was positive for methamphetamine, heroin, and THC. Discharge Providers Date of admission: 04/08/19 17:01 Discharge Date: 04/12/19 Primary care physician: Kenney Joshi MD Consults: 04/09/19 15:51 Consult to Discharge Planning Routine Comment: Consult to Physical Therapy Evaluate & Treat Comment: Physician Instructions: Evaluate and Treat Consult to Respiratory Therapy Evaluate & Treat Comment: Physician Instructions: Evaluate and treat 04/10/19 10:19 Consult to Occupational Therapy Evaluate & Treat Comment: Physician Instructions: Evaluate and treat 04/11/19 14:57 Consult to Physical Therapy Evaluate & Treat Comment: FWW for home use. Physician Instructions: Evaluate and Treat Discharge provider: Melissa Goode DO Summary Discharge Diagnosis: 1. Fracture of proximal left femur, status post ORIF, present on admission. Resolved. 2. Leukocytosis, present on admission. Active. 3. Hematemesis, not present on admission. Resolved. 4. Substance abuse, present on admission. Stable. 5. History of asthma. Hospital Course: Fahad Ramesh is a 59-year-old male with a past medical history significant for hepatitis C, IV drug abuse, asthma, depression, chronic back pain, and a CVA 1 year ago who presented for left hip pain after GLF and was found to left femur fracture. 1. Fracture of proximal left femur, status post ORIF, present on admission. Resolved. -Patient presented with left femur fracture after ground level fall. -Orthopedic surgery was consulted and performed ORIF successfully. -The patient mobilized well with physical and occupational therapy and recommended home with assistance and FWW provided. -Due to increasing leukocytosis requested Orthopedic surgery to evaluate wound thoroughly for which Dr. Alcantara reported is healing well and has no signs of infection. 2. Leukocytosis, present on admission. Active. -Appears to be a postoperative elevation without current signs of infection. -Continued increase in WBC from 14.3 to 18.2. Procalcitonin 2.38. Afebrile and VSS. Urinary catheter removed yesterday but UA not performed as patient declined. -Discussed with the patient the need to thoroughly workup leukocytosis and for patient to remain hospitalized until this was further investigated which he declined. Patient tried to leave hospital AMA with PICC line in place. Insisted patient return to room to have PICC line removed and Orthopedic surgery to evaluate wound for which he agreed to. Orthopedic surgeon, Dr. Alcantara, did not feel as though the wound was source of leukocytosis and was healing well. Again recommended to the patient, that we should further investigate his leukocytosis with UA and blood cultures for which the patient declined and was discharged home with family assistance. -Highly discouraged IV drug use. Discussed with the patient the possibility for blood borne infection and infection of prosthesis with significant complications including . 3. Hematemesis, not present on admission. Resolved. -Thought to be secondary to possible stress induced gastritis from surgery and/or IV morphine causing vomiting/retching with Adriana-Rodriges tear. -Held Lovenox and received protonix. -Previously discussed with general surgery Dr. Sen who agreed to consult/request EGD if did not resolve but quickly resolved with discontinuation of IV morphine. 4. Substance abuse, present on admission. Stable. -No signs of withdrawal or overt delirium. -Patient was discharged with temporary prescription of oxycodone 10-325 mg every 6 hours as needed for severe pain qty #20 in order for him not to withdraw or reuse until he is able to restart suboxone. Patient plans to go to Suboxone Clinic in [place] tomorrow 04/13 to restart suboxone. 5. History of asthma. Status at Discharge Functional status at discharge: uses cane/walker Overall status at discharge: patient is progressing back to baseline Exam Vital Signs (past 8 hours): - 04/12/19 05:14 04/12/19 06:00 04/12/19 07:35 Temperature 98.7 F 97.8 F Pulse Rate 97 H 73 99 H Respiratory Rate 14 19 16 Blood Pressure 101/63 112/68 Pulse Oximetry 95 96 97 Fraction of Inspired Oxygen 21 Oxygen Delivery Method Room Air Oxygen Flow Rate 0 Narrative Exam Narrative: General: Older gentleman sitting in bedside chair and in no acute distress, appears older than stated age, disheveled, emotionally labile and very anxious. HEENT: Normocephalic, atraumatic. External ears without defect. Pupils equal, round, and reactive to light. Anicteric sclerae, moist conjunctivae, and no lid lag. Oropharynx free of erythema and cobble stoning with moist mucosa. Neck: Supple with full range of motion. No lymphadenopathy or thyromegaly. Cardiovascular: Regular rate and rhythm without murmurs, rubs, or gallops appreciated. Pulmonary: Clear to auscultation bilaterally with no crackles, wheezes, or rhonchi. Normal respiratory effort with no use of accessory muscles. Abdomen: Soft, scaphoid, bowel sounds present, nontender, nondistended. No hepatosplenomegaly or masses appreciated. Extremities: No clubbing or cyanosis. Left hip with dressing in place C/D/I. Skin: Normal temperature, turgor, and texture; no rash, ulcers, or subcutaneous nodules appreciated. Neurological: Cranial nerves grossly intact. Psychiatric: Depressed and anxiouos mood, flat affect. Emotionally labile. Alert and oriented to person, place, and time. Eager to go home and refused further workup for possible infection. Objective Labs Result Diagrams: 04/12/19 05:50 04/12/19 05:50 Labs: Laboratory Results - last 24 hr 04/11/19 04/12/19 04/12/19 14:30 05:50 05:50 WBC 14.3 H 18.2 H RBC 4.16 L 3.97 L Hgb 10.6 L 10.2 L Hct 31.8 L 30.5 L MCV 76.6 L 76.7 L MCH 25.4 L 25.8 L MCHC 33.2 33.6 RDW 15.8 H 16.0 H Plt Count 253 301 Neut % (Auto) 83.2 H 71.8 Lymph % (Auto) 8.6 L 18.2 L [place] % (Auto) 8.0 9.4 Eos % (Auto) 0.0 L 0.4 L Baso % (Auto) 0.2 0.2 Neut # (Auto) 84228 H 12539 H Lymph # (Auto) 1200 3300 [place] # (Auto) 1100 H 1700 H Eos # (Auto) 0 100 Baso # (Auto) 0 0 Sodium 135 L Potassium 3.2 L Chloride 100 Carbon Dioxide 28 BUN 17 Creatinine 0.60 L Estimated GFR > 60.0 BUN/Creatinine Ratio 28.3 H Glucose 150 H Calcium 7.9 L Discharge Plan Discharge Plan Patient Disposition: Home Discharge comment: You are being discharged home. Please follow-up with your PCP, Dr. Joshi, in the next 1 week regarding your hospitalization. You need to follow up at the Suboxone clinic tomorrow to be restarted on Suboxone. You were given a prescription for oxycodone 10 mg every 6 hours as needed for severe pain quantity # 20. Please do not take this prescription other than how it was prescribed. If you use again you are at high risk of a joint infection around your artificial hardware and/or . Discharge Med Rec/Prescriptions Prescriptions: New oxycodone 10 mg Tablet 10 mg PO Q6H PRN (Reason: Pain, Severe (7-10)) Qty: 20 RF: 0 Continued fluticasone propion-salmeterol 250-50 mcg/dose blister with device 1 puff Inhalation BID RF: 0 albuterol sulfate 90 mcg/actuation HFA aerosol inhaler 1 puff Inhalation PRN PRN (Reason: Shortness Of Breath) RF: 0 Follow up/Referrals: Kenney Joshi MD [Primary Care Provider] - Provider Discharge Instructions Diet: Diet as Tolerated Visit Report/Discharge Packet Instructions: DI for Open Reduction Internal Fixation Surgery, Buprenorphine Sublingual and Buccal (opioid dependence) Discharge Data Primary Care Provider: Kenney Joshi Attending Provider: Melissa Goode Admit Date/Time: 04/08/19 17:01 Discharges patient from system. Discharge Date/Time: 04/12/19 12:25 Quality VTE Deep Vein Thrombosis/Pulmonary Embolism Present on Admission: No
[2019-04-12 10:50] LABS: Procalcitonin 2.38 ng/mL (<0.5)
--- NOTE | 2019-04-12 11:27 | PT.IPTN ---
Current Diagnoses Elevated white blood cell count, unspecified (04/08/19) Fracture of unspecified part of neck of left femur, initial encounter for closed fracture (04/08/19) Personal history of other diseases of the respiratory system (04/08/19) Surgery Performed Operation Date: 04/09/19 12:45 Actual Procedures p ORIF Hip DHS(Left) - Kenney Bruno MD Physical Therapy Treatment Note M2 PT-IP Current Condition Start: 04/10/19 11:16 Freq: NEEDED Status: Active Protocol: Document 04/10/19 10:35 HH (Rec: 04/10/19 12:01 HH [id number]) Physical Therapy Current Condition Current Condition Evaluation Date 04/10/19 Treatment Diagnosis s/p fall, post op L hip ORIF, impaired gait and activity tolerance Onset Date 04/09/19 Weight Bearing Status Weight Bearing Status Touch Down Weight Bearing Allowed Weight Bearing Amount (enter % for 6 weeks on L hip or #) (%) M3 PT-IP Subjective Start: 04/10/19 11:16 Freq: NEEDED Status: Active Protocol: Document 04/12/19 10:50 CLB (Rec: 04/12/19 11:27 CLB [id number]) Subjective Physical Therapy Visit Type Type Treatment Note Visit Start Time 10:50 Visit Stop Time 11:10 Total Visit Minutes 20 Number of FINGER BUFF SEWER Visits 2 Physical Therapy Visit Comments Patient Comments Pt willing to work with therapy. Wanting to leave hospital now. Therapy Pain Assessment Pain When Pain Assessed During Mobility Pain Present Pain Present Pain Reported Location Left leg Intensity 7 Scale Used Numeric (1 - 10) M4 PT-IP Mobility and Gait Start: 04/10/19 11:16 Freq: NEEDED Status: Active Protocol: Document 04/12/19 10:50 CLB (Rec: 04/12/19 11:27 CLB [id number]) PT-Transfer Assessment Sit to and From Stand Sit to and from Stand Contact Guard Assistance 1 Person Assistance Use of Upper Extremities Equipment Transfer Assistive Device Gait Belt Front Wheeled Walker Transfers Transfer Destination Chair Wheelchair Transfer Ability Level of Assist Contact Guard Assistance 1 Person Assistance Use of Upper Extremities Comments Mobility Comments Pt needing Min A for LLE onto WC foot rest. Gait Assessment Gait Gait Assistance Required: Contact Guard Assist Distance (Feet) 25 Able to Maintain Weight Bearing Status Yes During Gait Assistive Devices Assistive Device Gait Belt Front Wheeled Walker Orthotic/Prosthetic Devices or Brace: No Gait Deviations General Gait Pattern Antalgic Decreased Stride Length Decreased Feet Clearance Flexed Trunk Step-to Gait Factors Limiting Gait Function Factors Limiting Gait Function Decreased Activity Tolerance Decreased Strength Limited Range of Motion Pain Poor Balance Poor Safety Awareness Comments Gait Comments Pt requires cues to TTWB and not drag leg behind him. Stair Climbing Assessment Evaluation Level of Assist On Stairs Contact Guard Assistance 1 Person Assistance Devices Stair Climbing Assistive Devices Front Wheel Walker Technique/Endurance Stair Climbing Direction Ascend and Descend Stair Climbing Technique Step to Step Number of Steps Climbed 1 Query Text: Stair Climbing Set # Repetitions (reps) 1 Comments Stair Climbing Comments Pt going to friend Samson's home that has one platform step to enter. Pt trialled step using FWW going up backwards ascending and forward descending with gait belt and CGA. M5 PT-IP Objective Assessments Start: 04/10/19 11:16 Freq: NEEDED Status: Active Protocol: Document 04/10/19 10:35 HH (Rec: 04/10/19 12:01 HH [id number]) Orientation Orientation/Cognition Level of Alertness Lethargic Orientation Name Age Birthday Month Date Year Day of Week Place Situation Language Function Ability No Deficits Noted Safety Awareness Decreased Safety Awareness Memory Description No Deficits Noted Comments only answer to simple questions with short and direct answers. Gross Range of Motion Upper Extremity ROM Assessment Within Functional Limits Lower Extremity ROM Assessment Left Impaired Strength Upper Extremity Strength Assessment Within Functional Limits Lower Extremity Strength Assessment Left Impaired Hip 3/5 Coordination Assessment Gross Coordination Gross Coordination WNL Sensation Assessment Sensation Gross Sensation WNL Light Touch Intact Proprioception (Position) Intact Muscle Tone Muscle Tone WNL Yes M6 PT-IP Treatment Start: 04/10/19 11:16 Freq: NEEDED Status: Active Protocol: Document 04/12/19 10:50 CLB (Rec: 04/12/19 11:27 CLB [id number]) Physical Therapy Treatment Other Treatments Other Treatment Performed Pt respectfully refused ther ex stating he was just ready to go. M7 PT-IP Assessment and Plan Start: 04/10/19 11:16 Freq: NEEDED Status: Active Protocol: Document 04/12/19 10:50 CLB (Rec: 04/12/19 11:27 CLB [id number]) PT Summary Assessment and Plan Summary Impairments Pain ROM Strength Balance Cognition Bed Mobility Transfers Gait Activity Tolerance Assessment Summary Pt is impulsive and requires cues for chair approach, not dragging leg behind him during ambulation and using TTWB. Pt climbed platform step CGA using FWW. Pt respectfully refused ther ex stating he was just ready to go. Left pt in WC even though RN informed pt it would be a bit due to doctor wanting to discuss his blood work with him. FWW issued to pt. Goals Bed Mobility Goal Independent Transfer Goal Independent Crutches Front Wheeled Walker Gait Goal Independent Crutches Front Wheel Walker Gait Distance 200 Other Goals clear 2 Steps independently Days to Meet Goals 5 Frequency of Treatment Frequency Of Treatment Twice a Day Treatment Plan Physical Therapy Treatment Plan Bed Mobility Training Transfer Training Gait Training Therapeutic Exercise Balance Retraining Post Op Education Discharge Planning Hot or Cold Pack Other Recommendations and Next Treatment gait as tolerated, bed Focus mobility and transfers. Recommendations To Nursing Amount of Assist Needed 1 Person Assist Discharge Recommendations PT Discharge Recommendations Home with Assistance Home Health SNF Rehab Other Discharge Recommendations SNF vs Home Equipment Needed for Home Before tub transfer bench Discharge FWW issued to pt
--- NOTE | 2019-04-12 12:31 | P.PN_ITS ---
Subjective Date Patient Seen: 04/12/19 Time Patient Seen: 12:07 Interval history: Patient notes that he is able to mobilize with physical therapy. He is dressed and ready to go home. He has mild to moderate left hip pain. He denies any calf pain or shortness of breath. Exam Vital Signs (past 8 hours): - 04/12/19 05:14 04/12/19 06:00 04/12/19 07:35 Temperature 98.7 F 97.8 F Pulse Rate 97 H 73 99 H Respiratory Rate 14 16 Blood Pressure 101/63 112/68 Pulse Oximetry 95 96 97 Fraction of Inspired Oxygen 21 Oxygen Delivery Method Room Air Oxygen Flow Rate 0 Narrative Exam Narrative: His wound is benign, there is no erythema, there is no evidence of drainage, he has some mild swelling in his thigh, his casts are benign bilaterally Objective Labs Result Diagrams: 04/12/19 05:50 04/12/19 05:50 Labs: Laboratory Results - last 24 hr 04/11/19 04/12/19 04/12/19 14:30 05:50 05:50 WBC 14.3 H 18.2 H RBC 4.16 L 3.97 L Hgb 10.6 L 10.2 L Hct 31.8 L 30.5 L MCV 76.6 L 76.7 L MCH 25.4 L 25.8 L MCHC 33.2 33.6 RDW 15.8 H 16.0 H Plt Count 253 301 Neut % (Auto) 83.2 H 71.8 Lymph % (Auto) 8.6 L 18.2 L [place] % (Auto) 8.0 9.4 Eos % (Auto) 0.0 L 0.4 L Baso % (Auto) 0.2 0.2 Neut # (Auto) 48190 H 78929 H Lymph # (Auto) 1200 3300 [place] # (Auto) 1100 H 1700 H Eos # (Auto) 0 100 Baso # (Auto) 0 0 Sodium 135 L Potassium 3.2 L Chloride 100 Carbon Dioxide 28 BUN 17 Creatinine 0.60 L Estimated GFR > 60.0 BUN/Creatinine Ratio 28.3 H Glucose 150 H Calcium 7.9 L Procalcitonin 04/12/19 05:50 WBC RBC Hgb Hct MCV MCH MCHC RDW Plt Count Neut % (Auto) Lymph % (Auto) [place] % (Auto) Eos % (Auto) Baso % (Auto) Neut # (Auto) Lymph # (Auto) [place] # (Auto) Eos # (Auto) Baso # (Auto) Sodium Potassium Chloride Carbon Dioxide BUN Creatinine Estimated GFR BUN/Creatinine Ratio Glucose Calcium Procalcitonin 2.38 H Assessment & Plan Assessment & Plan narrative: Doing reasonably well status post left hip open reduction internal fixation. He does have an elevated white count but he has been afebrile. His wound is benign. He is anxious to go home to the extent of considering leaving Against Medical Advice. I think it is reasonable to allow him to be discharged to home. I have asked them to call if he has fevers chills or increased drainage. I discussed him with the medicine doctor Dr. Melissa Goode. Quality VTE Deep Vein Thrombosis/Pulmonary Embolism Present on Admission: No
--- NOTE | 2019-04-12 13:05 | PC.NURSE ---
AM shift Pt incredibly anxious this shift. He has been told the plan is for d/c so he has his bag packed and is waiting for the d/c. Dr Goode had added a procalcitonin on and was elevated. Holding off on d/c until Dr Alcantara is able to assess Pt. When Pt was updated with this information, visibly upset. Friend is at bedside and pacing room. 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 Pt still has PICC line in place, and until we have discharge order, Pt is advised that he is unable to leave the floor. He has been asking about smoking with his friends, but given substance abuse history, we have been very clear about boundries for his hospital stay.
== END 2019-04-12 12:25 | disposition home or self-care (01) | DRG 481 ==
LOC: ED 14:58 → AC 17:01
PROVIDERS: Emergency Medicine; Family Medicine; Nurse Practitioner Family; Admitting Provider Internal Medicine; Emergency Provider Nurse Practitioner Family; Family Provider Family Medicine; PCP Family Medicine; Referring Provider Orthopaedic Surgery; Visit Provider Internal Medicine
PROC: 0QS704Z Reposition Left Upper Femur with Internal Fixation Device, Open Approach (ICD-10-PCS; principal; 2019-04-09 12:45)
DX: S72.142A Displaced intertrochanteric fracture of left femur, initial encounter for closed fracture (principal); F11.20 Opioid dependence, uncomplicated; K92.0 Hematemesis; F15.10 Other stimulant abuse, uncomplicated; J45.909 Unspecified asthma, uncomplicated; F17.210 Nicotine dependence, cigarettes, uncomplicated; X58.XXXA Exposure to other specified factors, initial encounter; D72.829 Elevated white blood cell count, unspecified
CPT/HCPCS: 36415; 36569; 36592; 71045; 73502; 73552; 76000; 80048; 80053; 80305; 80320; 81003; 83690; 84145; 85025; 85027; 85610; 85730; 87040; 93005; 93010; 94150; 94640; 94760; 94762; 96374; 96375; 96376; 97116; 97162; 97165; 97530; 97535; 99284; C9113; J1100; J1170; J1642; J1650; J2270; J2405; J2704; J2765; J3010; J3370; J3410; J7613

== ENCOUNTER 2019-04-22 14:58 | Emergency (ER) | payer MEDICARE, MEDICAID, SELFPAY ==
[2019-04-08 17:02] VITALS: BMI 19.7
[2019-04-22 15:16] VITALS: BP 113/73; PULSE 94; RESP 20; TEMP 36.8; O2SAT 96
== END 2019-04-22 19:14 | disposition left against medical advice (07) ==
PROVIDERS: Emergency Provider Nurse Practitioner Family; Family Provider Family Medicine; PCP Family Medicine
DX: Z53.21 Procedure and treatment not carried out due to patient leaving prior to being seen by health care provider (principal)
CPT/HCPCS: 99282

== ENCOUNTER 2019-05-05 16:23 | Emergency (ER) | payer MEDICARE, MEDICAID, SELFPAY ==
[2019-04-08 17:02] VITALS: BMI 19.7
[2019-05-05 16:26] VITALS: PULSE 83; RESP 16; O2SAT 98
[2019-05-05 17:29] VITALS: BP 127/88; PULSE 81; RESP 16; TEMP 36.6; O2SAT 98
--- NOTE | 2019-05-05 18:51 | PC.NURSE ---
[place] removed,steri strips applied
--- NOTE | 2019-05-05 18:54 | ED_ITS ---
HPI - Recheck/Abnormal Lab/Rx <GOKUL Acosta-BC - Last Filed: 05/05/19 19:08> General Chief Complaint: Recheck/Abnormal Lab/Rx Stated Complaint: WANTS DRESSING CHANGED ON HIS LEG Time Seen by Provider: 05/05/19 17:23 Source: patient Mode of arrival: wheelchair Limitations: no limitations History of Present Illness HPI narrative: The patient is a 59-year-old male with history of IV drug use who presents for surgical site dressing change. He had an ORIF of his left hip on 04/08/2019. He has not seen Orthopedics for follow-up. He was at this facility about 2 weeks ago for a dressing change as well. Denies any fevers nausea vomiting diarrhea. He denies any redness at the site. He states his sue are in place. Related Data Home Medications Medication Instructions Recorded Confirmed albuterol sulfate 1 puff INHALATION PRN PRN 04/08/19 04/08/19 fluticasone propion-salmeterol 1 puff INHALATION BID 04/08/19 04/08/19 Previous Rx's Medication Instructions Recorded oxycodone 10 mg PO Q6H PRN #20 tab 04/12/19 Allergies Allergy/AdvReac Type Severity Reaction Status Date / Time amoxicillin [AMOXICILLIN] Allergy Unknown DOES NOT Verified 05/05/19 16:26 REMEMBER SOMETHING NOT GOOD Penicillins [PENICILLINS] Allergy Unknown CAN'T Verified 05/05/19 16:26 REMEMBER RX Review of Systems <GOKUL Acosta-BC - Last Filed: 05/05/19 19:08> Review of Systems GENERAL: Denies chills, fatigue, malaise, fever, sweats. HEENT: Denies sinus pain, ear pain, sore throat, difficulty swallowing, dizziness. RESPIRATORY: Denies dyspnea, cough, wheezing, hemoptysis, sputum. CARDIOVASCULAR: Denies chest pain, palpitations, orthopnea, edema, GASTROINTESTINAL: Denies nausea, vomiting, abdominal pain, diarrhea, constipation, melena. : Denies dysuria, frequency, incontinence, hematuria, urinary retention. MUSCULOSKELETAL: denies weakness, joint pain, or bony pain SKIN: See HPI NEUROLOGIC: Denies weakness, headache, numbness, change in speech, confusion, seizures, incoordination. PSYCHIATRIC: No concerning psychosocial issues. 12 point review of systems is negative except for those stated above PFSH <JOS Acosta - Last Filed: 05/05/19 19:08> Medical History Closed intertrochanteric fracture of left femur (Acute) Drug abuse, IV (Acute) Asthma (Chronic) Chronic back pain greater than 3 months duration (Chronic) Depression (Chronic) History of CVA (cerebrovascular accident) (Inactive) Surgical History History of hernia repair (Acute) Family History (Updated 04/08/19 @ 23:14 by JONATHAN Sampson) Father Unknown family medical history Mother No problems noted. Grandmother Myocardial infarction Grandfather No problems noted. Social History household members: significant other Family History Father Unknown family medical history Mother No problems noted. Grandmother Myocardial infarction Grandfather No problems noted. Social History household members: significant other Exam <JOS Acosta - Last Filed: 05/05/19 19:08> Narrative Exam Narrative: GENERAL: This is a well-nourished, well-developed patient, no distress HEAD: Atraumatic. Normocephalic. No temporal or scalp tenderness. EYES: Pupils equal round and reactive. Extraocular motions intact. No scleral icterus. No injection or drainage. ENT: Nose without bleeding, purulent drainage or septal hematoma. Throat without erythema, tonsillar hypertrophy or exudate. Uvula midline. Airway patent. NECK: Trachea midline. No JVD or lymphadenopathy. Supple, nontender, no meningeal signs. CARDIOVASCULAR: Regular rate and rhythm RESPIRATORY: No cough. No increased respiratory effort. No accessory muscle use. GASTROINTESTINAL: Abdomen soft, non-tender, nondistended. No hepato- splenomegaly, or palpable masses. No guarding. EXTREMITIES: No clubbing, cyanosis, or edema. No joint tenderness, effusion, or edema noted. BACK: Nontender without deformity or crepitance. No flank tenderness. NEURO: AOx3. SKIN: Surgical incision at left hip well approximated, no extending erythema, sue in place. Initial Vital Signs Initial Vital Signs: Vital Signs Pulse Rate 83 05/05/19 16:26 Respiratory Rate 16 05/05/19 16:26 Pulse Oximetry 98 05/05/19 16:26 <Richard Hannon DO - Last Filed: 05/05/19 19:56> Initial Vital Signs Initial Vital Signs: Vital Signs Pulse Rate 83 05/05/19 16:26 Respiratory Rate 16 05/05/19 16:26 Pulse Oximetry 98 05/05/19 16:26 Course <JOS Acosta - Last Filed: 05/05/19 19:08> Vital Signs - 8 hr 05/05/19 16:26 05/05/19 17:29 05/05/19 19:01 Temperature 97.8 F Pulse Rate 83 81 81 Respiratory Rate 16 16 20 Blood Pressure Blood Pressure [Left Arm] 127/88 113/66 Pulse Oximetry 98 98 95 05/05/19 19:06 Temperature Pulse Rate 78 Respiratory Rate Blood Pressure 113/66 Blood Pressure [Left Arm] Pulse Oximetry 97 <Richard Hannon DO - Last Filed: 05/05/19 19:56> Vital Signs - 8 hr 05/05/19 16:26 05/05/19 17:29 05/05/19 19:01 Temperature 97.8 F Pulse Rate 83 81 81 Respiratory Rate 16 16 20 Blood Pressure Blood Pressure [Left Arm] 127/88 113/66 Pulse Oximetry 98 98 95 05/05/19 19:06 Temperature Pulse Rate 78 Respiratory Rate Blood Pressure 113/66 Blood Pressure [Left Arm] Pulse Oximetry 97 MDM - Recheck/Abnormal Lab/Rx <JOS Acosta - Last Filed: 05/05/19 19:08> [facility] Narrative Medical decision making narrative: The patient presents approximately 1 month post surgery for a suture dressing change. I spoke with Dr. Isaac from [facility], who confirm this patient's sue could come out. I discussed encouraging the patient to go back in for follow-up. Dr. Isaac was in accordance with this. I discussed at length following up with Orthopedics with the patient as well as monitoring main incision for signs of infection such as redness, pus etc. Patient has no questions or concerns upon discharge. Discharge Plan Departure Patient Disposition: Home Clinical Impression: Encounter for postoperative wound check Discharge Date/Time: 05/05/19 19:07 Interventions: ED Discharge Assessment Last Done: 05/05/19 19:06 Instructions: How to Care for a Surgical Wound-Sue Activity Restrictions/Additional Instructions: Today we took out your sue from your surgery. Please follow-up with [facility]. I have given you the contact information. Monitor for swelling of the site, erythema or any signs of infection. Prescriptions: No Action fluticasone propion-salmeterol 250-50 mcg/dose blister with device 1 puff Inhalation BID RF: 0 albuterol sulfate 90 mcg/actuation HFA aerosol inhaler 1 puff Inhalation PRN PRN (Reason: Shortness Of Breath) RF: 0 oxycodone 10 mg Tablet 10 mg PO Q6H PRN (Reason: Pain, Severe (7-10)) Qty: 20 RF: 0 Referrals: [facility] [Provider Group] Kenney Joshi MD [Primary Care Provider] - <Richard Hannon DO - Last Filed: 05/05/19 19:56> Cosign ED Attending Mimi Attestation: I was immediately available in the department for consultation. Documentation has been reviewed. I agree with assessment and plan.
[2019-05-05 19:01] VITALS: BP 113/66; PULSE 81; RESP 20; O2SAT 95
[2019-05-05 19:06] VITALS: BP 113/66; PULSE 78; O2SAT 97
--- NOTE | 2019-05-11 19:43 | CM.SWNOTE ---
ED BUSINESS MACHINE MECHANIC Note: Pt's face sheet with note was left for BUSINESS MACHINE MECHANIC by pt's RN from 05/05/19. BUSINESS MACHINE MECHANIC called pt and encouraged him to contact his surgeon for f/u care as this was the request by pt's RN. Pt had not made an appointment and seemed uncertain how to proceed. BUSINESS MACHINE MECHANIC looked up [facility] and provided pt with their phone # [phone]. Pt reported that he had not returned to [facility] as he was concerned about his health and did not want to be too far away in case he had a medical need. He also mentioned that he did not have the money to get the ferry and to get back home, but BUSINESS MACHINE MECHANIC was not aware of resources to enable his return back to [place]. Pt reported that he had been couch surfing and staying with friends. He is aware that he can return to the ED should he have a medical emergency, but was encouraged to contact his surgeon for follow up care. Pt seemed to understand and seemed to appreciate this follow up call.
== END 2019-05-05 19:07 | disposition home or self-care (01) ==
PROVIDERS: Emergency Provider Nurse Practitioner Family; Family Provider Family Medicine; PCP Family Medicine
DX: Z48.89 Encounter for other specified surgical aftercare (principal)
CPT/HCPCS: 99281; 99282

== ENCOUNTER 2020-04-19 03:00 | Emergency (ER) | payer MEDICARE, MEDICAID, SELFPAY ==
[2019-04-08 17:02] VITALS: BMI 19.7
[2020-04-19 03:21] VITALS: BP 142/69; PULSE 84; RESP 19; TEMP 36.7; O2SAT 96
[2020-04-19] MEDS: ALBUTEROL HFA PREPACK 1 BOX MISC (03:38)
--- NOTE | 2020-04-19 03:38 | ED.ASTHMA ---
HPI - Asthma General Chief Complaint: Shortness of Breath/Dyspnea Stated Complaint: states asthma problem, and left side back pain Time Seen by Provider: 04/19/20 03:22 Source: patient Mode of arrival: Wheelchair Limitations: no limitations History of Present Illness HPI Narrative: 60-year-old gentleman with a history of asthma and opiate use disorder presents stating that his asthma is getting worse and he has not had any of his usual inhalers for the last 2 months. He has been unable to get back to [facility] to reestablish care with his primary care physician due to Covid 19. He reports no recent fevers, the usual cough that he experiences daily with a minor amount of production 1st thing in the morning. He states that he does not smoke cigarettes but does continue to use ?2 points? (.2 gm) of heroin IM daily. He states that he has not had luck with methadone clinics because he has difficulty getting to the every single day and he has not ever had a positive affect when trying Subutex or Suboxone. He also has questions about ?nodules? that were found on a CT scan in December 2017. Related Data Home Medications Medication Instructions Recorded Confirmed albuterol sulfate 1 puff INHALATION PRN PRN 04/08/19 04/08/19 fluticasone propion-salmeterol 1 puff INHALATION BID 04/08/19 04/08/19 Previous Rx's Medication Instructions Recorded oxycodone 10 mg PO Q6H PRN #20 tab 04/12/19 albuterol sulfate 2 puff INHALATION Q6H PRN #6.7 gram 04/19/20 fluticasone propion-salmeterol 1 inhalation INHALATION BID #60 04/19/20 [Advair Diskus] each Allergies Allergy/AdvReac Type Severity Reaction Status Date / Time amoxicillin [AMOXICILLIN] Allergy Unknown DOES NOT Verified 05/05/19 16:26 REMEMBER SOMETHING NOT GOOD Penicillins [PENICILLINS] Allergy Unknown CAN'T Verified 05/05/19 16:26 REMEMBER RX Review of Systems Review of Systems Narrative: Pertinent positive and negative findings as per HPI -multiple small superficial skin abscesses from IM injections of heroin Remainder of review of systems is otherwise unremarkable for Constitutional: Fevers, chills, weakness ENT: No sore throat, neck pain, ear pain CV: Chest pain, palpitations, GI: Nausea, vomiting, diarrhea, : Dysuria, hematuria, flank pain MS: Muscle weakness, numbness, joint swelling or warmth Neuro: Syncope, dizziness, tingling Patient History Medical History Asthma (Chronic) Chronic back pain greater than 3 months duration (Chronic) Closed intertrochanteric fracture of left femur (Acute) Depression (Chronic) Drug abuse, IV (Acute) History of CVA (cerebrovascular accident) (Inactive) Surgical History History of hernia repair (Acute) Family History Father Unknown family medical history Mother No problems noted. Grandmother Myocardial infarction Grandfather No problems noted. Social History household members: significant other Smoking Status: Current some day smoker Smoking Status: Current some day smoker alcohol intake frequency: a few times a month Substance Use Type: heroin, opiates and IV drugs Exam Narrative Exam Narrative: General: Thin in no acute distress. Able to give a complete and coherent history. Moderately disheveled. HEENT: Moist mucous membranes, normal sclera with reactive pupils, Neck: No JVD, supple Respiratory: Lungs with scattered wheeze in all lung trotter, no rhonchi. Full and symmetrical air movement Cardiac: Regular rate and rhythm no murmurs no bruits Abdomen: Soft nontender good bowel tones, no flank pain Skin: Multiple track crane, healed prior scars and small superficial abscesses from ?muscleing? Neurologic: Grossly neurologically intact with no obvious asymmetries or abnormalities Extremities: No trauma, well perfused Psych: Cooperative, appropriate insight and affect Initial Vital Signs Initial Vital Signs: Vital Signs Temperature 98.0 F 04/19/20 03:21 Pulse Rate 84 04/19/20 03:21 Respiratory Rate 19 04/19/20 03:21 Blood Pressure 142/69 H 04/19/20 03:21 Pulse Oximetry 96 04/19/20 03:21 Course Orders Ordered: Discontinued Medications Albuterol (Ventolin Hfa Prepack) 1 box MISC SEEINSTR ONE Stop: 04/19/20 03:29 Last Admin: 04/19/20 03:38 Dose: 1 box Documented by: Vital Signs Vital signs: Vital Signs - 8 hr 04/19/20 03:21 Temperature 98.0 F Pulse Rate 84 Respiratory Rate 19 Blood Pressure 142/69 H Pulse Oximetry 96 [facility] - Asthma Medical Records Attestation: I reviewed the patient's medical records. [facility] Narrative Medical decision making narrative: 60-year-old gentleman presents for asthma refills. Moderate wheeze without acute exacerbation for fever. Opiate use disorder not currently interested in treatment. Questions regarding findings needing follow-up from a CT scan over 2 years ago. He is given copy of the CT scan with instructions to follow-up with his primary care physician Albuterol and Flovent prescriptions are given. Patient is safe for home discharge Discharge Plan Departure Patient Disposition: Home Clinical Impression: Asthma Qualifiers: Asthma severity: moderate Asthma persistence: persistent Asthma complication type: unspecified Qualified Code(s): J45.40 - Moderate persistent asthma, uncomplicated Instructions: DI for Asthma -- Adult Activity Restrictions/Additional Instructions: Thank you for coming in tonight. You do need to reestablish care with your primary care physician. Your asthma does need to be better controlled. I have given you refills for your albuterol to use 2 puffs twice a day and your Advair Diskus to use 1 puff twice a day. Both of these prescriptions have been electronically transmitted to [facility] on [facility] for you. You had questions about up prior CT scan. The CT scan was done in December of 2017. The finding that you had questions about was that of mild splenomegaly. The spleen at the time showed multiple hypodense nodules that are nonspecific and do need outpatient follow-up. I have printed a copy of the report for you to share with your primary care physician with whom you have an appointment tomorrow. Regarding your opiate use disorder, I would encourage you to consider the possibility of Suboxone, you may find that this will be an easier medication for you to take without daily visits required for methadone treatment. Both [facility] ([phone]) and [facility] clinics are available to you if you choose to seek additional help. I wish you well Prescriptions: New albuterol sulfate 90 mcg/actuation HFA aerosol inhaler 2 puff INHALATION Q6H PRN (Reason: shortness of breath or wheezing) Qty: 6.7 RF: 0 fluticasone propion-salmeterol [Advair Diskus] 250-50 mcg/dose blister with device 1 inhalation INHALATION BID Qty: 60 RF: 0 No Action fluticasone propion-salmeterol 250-50 mcg/dose blister with device 1 puff Inhalation BID RF: 0 albuterol sulfate 90 mcg/actuation HFA aerosol inhaler 1 puff Inhalation PRN PRN (Reason: Shortness Of Breath) RF: 0 oxycodone 10 mg Tablet 10 mg PO Q6H PRN (Reason: Pain, Severe (7-10)) Qty: 20 RF: 0 Referrals: Kenney Joshi MD [Primary Care Provider] -
[2020-04-19 04:10] VITALS: BP 129/61; PULSE 93; RESP 16; TEMP 36.7; O2SAT 96
== END 2020-04-19 04:10 | disposition home or self-care (01) ==
PROVIDERS: Emergency Provider Emergency Medicine; Family Provider Family Medicine; PCP Family Medicine
DX: J45.40 Moderate persistent asthma, uncomplicated (principal); F11.20 Opioid dependence, uncomplicated; F17.200 Nicotine dependence, unspecified, uncomplicated
CPT/HCPCS: 94640; 99281; 99282

== ENCOUNTER 2021-02-14 16:33 | Emergency (ER) | payer MEDICARE, MEDICAID, SELFPAY ==
[2019-04-08 17:02] VITALS: BMI 19.7
[2021-02-14 16:44] VITALS: TEMP 36.3; BMI 29.0
--- NOTE | 2021-02-14 16:59 | ED_ITS ---
HPI - Asthma General Chief Complaint: Asthma Stated Complaint: DIFFICULTY BREATHING Time Seen by Provider: 02/14/21 16:44 Source: patient Mode of arrival: Ambulatory Limitations: no limitations History of Present Illness HPI Narrative: Patient is a 61-year-old male with history of heroin abuse, asthma and smoking history presenting with increasing shortness of breath. He says he has been out of his Advair for some time and feels like he is more short of breath with exertion. He denies any fevers chills or chest pain. He denies any cough or chest tightness but. He denies any orthopnea. It has been ongoing for couple of days he is requesting refill of his Advair. However he is noted to be tachycardic. Related Data Current Asthma Therapy: inhaled bronchodilator Home Medications Medication Instructions Recorded Confirmed albuterol sulfate 1 puff INHALATION PRN PRN 04/08/19 04/08/19 fluticasone propion-salmeterol 1 puff INHALATION BID 04/08/19 04/08/19 Previous Rx's Medication Instructions Recorded oxycodone 10 mg PO Q6H PRN #20 tab 04/12/19 albuterol sulfate 2 puff INHALATION Q6H PRN #6.7 gram 04/19/20 fluticasone propion-salmeterol 1 inhalation INHALATION BID #60 04/19/20 [Advair Diskus] each fluticasone propion-salmeterol 1 inh INHALATION Q12H #60 ea 02/14/21 [Advair Diskus] prednisone 40 mg PO DAILY #10 tab 02/14/21 Allergies Allergy/AdvReac Type Severity Reaction Status Date / Time amoxicillin [AMOXICILLIN] Allergy Unknown DOES NOT Verified 05/05/19 16:26 REMEMBER SOMETHING NOT GOOD Penicillins [PENICILLINS] Allergy Unknown CAN'T Verified 05/05/19 16:26 REMEMBER RX Review of Systems Review of Systems ROS Unobtainable: All systems reviewed & are unremarkable except as noted in HPI and below Constitutional Constitutional: Denies chills, Denies fever(s), Denies lethargy and Denies weakness Eyes Eyes: Denies change in vision, Denies eye discharge, Denies irritation and Denies loss of vision ENT Ears, Nose, Mouth, and Throat: Denies dizziness Cardiovascular Cardiovascular: Denies chest pain, Denies syncope, Denies edema, Reports dyspnea on exertion and Denies orthopnea Respiratory Respiratory: Reports as per HPI and Reports dyspnea on exertion Gastrointestinal Gastrointestinal: Denies abdominal pain, Denies change in bowel habits, Denies d iarrhea, Denies nausea and Denies vomiting Musculoskeletal Musculoskeletal: Denies back pain and Denies myalgias Integumentary/Breasts Skin/Breast: Denies pruritus, Denies erythema, Denies rash and Denies wounds Neurologic Neurologic: Denies dizziness, Denies syncope, Denies loss of vision and Denies weakness Patient History Medical History (Updated 02/14/21 @ 18:23 by Sosa Bernstein DO) Asthma Chronic back pain greater than 3 months duration Closed intertrochanteric fracture of left femur Depression Drug abuse, IV History of CVA (cerebrovascular accident) Surgical History History of hernia repair Family History Father Unknown family medical history Mother No problems noted. Grandmother Myocardial infarction Grandfather No problems noted. Social History household members: significant other Smoking Status: Current some day smoker Smoking Status: Current some day smoker alcohol intake frequency: a few times a month Substance Use Type: heroin, opiates and IV drugs Exam Initial Vital Signs Initial Vital Signs: Vital Signs Temperature 97.4 F L 02/14/21 16:44 GENERAL: Alert 61-year-old male and in no acute distress. HEENT: Head atraumatic,EOMI, pupils reactive, face symmetric, moist mucous membranes CARDIOVASCULAR: Regular rate and rhythm without murmurs, rubs or gallops. RESPIRATORY: Decreased breath sounds bilaterally Speaks in full sentences without respiratory distress ABDOMEN: Soft, nontender. Normoactive bowel sounds all 4 quadrants. No guarding or rebound. EXTREMITIES: Normal range of motion, no clubbing or edema. Neurovascularly intact NEUROLOGICAL: Alert and oriented x4.Normal gait and speech. Cranial nerves II through XII grossly intact. SKIN: Warm, dry, no laceration, no petechiae, no rashes or lesions. Course Orders Ordered: ED Orders 02/14/21 16:50 EKG-12 Lead Stat 02/14/21 17:04 Consult to Respiratory Therapy Evaluate & Treat Partial Thromboplastin Time Stat Prothrombin Time INR Stat 02/14/21 17:05 XR chest 2V Stat 02/14/21 17:06 COVID19 -Nasal swab/Pre-Proc Stat 02/14/21 17:32 Complete Blood Count AUTO DIFF Stat Comprehensive Metabolic Panel Stat Magnesium Stat NT-proBNP (BNP-Adult 18+) Stat Troponin & CK Cardiac Panel Stat Discontinued Medications Albuterol (Albuterol 2.5 Mg/3 Ml Neb (Adult)) 2.5 mg INH NOW ONE Stop: 02/14/21 18:16 Albuterol/Ipratropium (Albuterol/Ipratropium 3 Ml Ampul) 3 ml INH NOW ONE Stop: 02/14/21 17:05 Last Admin: 02/14/21 17:55 Dose: 3 ml Documented by: CHRISTIAN Prednisone (Prednisone 20 Mg Tablet) 60 mg PO NOW ONE Stop: 02/14/21 17:05 Last Admin: 02/14/21 17:19 Dose: 60 mg Documented by: SASKIA Vital Signs Vital signs: Vital Signs - 8 hr 02/14/21 16:44 02/14/21 17:56 Temperature 97.4 F L Pulse Rate 104 H Respiratory Rate 22 MDM - Asthma Lab Data Attestation: I reviewed the patient's lab results. Result diagrams: 02/14/21 17:32 02/14/21 17:32 Labs: Lab Results 02/14/21 02/14/21 02/14/21 Range/Units 17:06 17:32 17:32 WBC 6.7 (4.5-11.0) X10^3/uL RBC 5.56 (4.5-5.9) X10^6/uL Hgb 14.0 (13.5-17.5) g/dL Hct 42.9 (41-53) % MCV 77.1 L (80-100) fL MCH 25.1 L (26-34) PG MCHC 32.6 (30-36) % RDW 17.3 H (11.6-14.8) % Plt Count 190 (150-400) X10^3/uL Neut % (Auto) 70.7 (50-75) % Lymph % (Auto) 19.3 L (25-40) % [place] % (Auto) 8.7 (3-14) % Eos % (Auto) 1.0 L (2-4) % Baso % (Auto) 0.3 (0-2) % Neut # (Auto) 4700 (1203-8057) /uL Lymph # (Auto) 1300 (7359-8286) /uL [place] # (Auto) 600 (0-900) /uL Eos # (Auto) 100 (0-450) /uL Baso # (Auto) 0 (0-100) /uL Sodium (137-145) mmol/L Potassium (3.4-5.1) mmol/L Chloride (98-107) mmol/L Carbon Dioxide (22-32) mmol/L BUN (9-20) mg/dL Creatinine (0.66-1.25) mg/dL Estimated GFR (>60) mL/min BUN/Creatinine Ratio (6-22) Glucose (80-110) mg/dL Calcium (8.4-10.2) mg/dL Magnesium 2.2 (1.6-2.3) mg/dL Total Bilirubin (0.2-1.3) mg/dL AST (17-59) IU/L ALT (<50) IU/L Alkaline Phosphatase (38-126) U/L Total Creatine Kinase 218 H (55-170) U/L CK-MB (CK-2) 2.60 H (<2.37) ng/mL CK-MB (CK-2) Rel Index 1.2 L (1.5-5.0) % Troponin I < 0.012 (0.01-0.034) ng/mL NT-Pro-B Natriuret Pep 89 (<125) pg/mL Total Protein (6.3-8.2) g/dL Albumin (3.5-5.0) g/dL Globulin (1.7-4.1) g/dL Albumin/Globulin Ratio (1.0-2.8) SARS-CoV-2 (PCR) Negative (Negative) 02/14/21 Range/Units 17:32 WBC (4.5-11.0) X10^3/uL RBC (4.5-5.9) X10^6/uL Hgb (13.5-17.5) g/dL Hct (41-53) % MCV (80-100) fL MCH (26-34) PG MCHC (30-36) % RDW (11.6-14.8) % Plt Count (150-400) X10^3/uL Neut % (Auto) (50-75) % Lymph % (Auto) (25-40) % [place] % (Auto) (3-14) % Eos % (Auto) (2-4) % Baso % (Auto) (0-2) % Neut # (Auto) (7118-3247) /uL Lymph # (Auto) (4907-3304) /uL [place] # (Auto) (0-900) /uL Eos # (Auto) (0-450) /uL Baso # (Auto) (0-100) /uL Sodium 143 (137-145) mmol/L Potassium 3.9 (3.4-5.1) mmol/L Chloride 105 (98-107) mmol/L Carbon Dioxide 32 (22-32) mmol/L BUN 15 (9-20) mg/dL Creatinine 0.59 L (0.66-1.25) mg/dL Estimated GFR > 60.0 (>60) mL/min BUN/Creatinine Ratio 25.4 H (6-22) Glucose 116 H (80-110) mg/dL Calcium 9.1 (8.4-10.2) mg/dL Magnesium (1.6-2.3) mg/dL Total Bilirubin 0.4 (0.2-1.3) mg/dL AST 50 (17-59) IU/L ALT 42 (<50) IU/L Alkaline Phosphatase 83 (38-126) U/L Total Creatine Kinase (55-170) U/L CK-MB (CK-2) (<2.37) ng/mL CK-MB (CK-2) Rel Index (1.5-5.0) % Troponin I (0.01-0.034) ng/mL NT-Pro-B Natriuret Pep (<125) pg/mL Total Protein 7.6 (6.3-8.2) g/dL Albumin 4.1 (3.5-5.0) g/dL Globulin 3.5 (1.7-4.1) g/dL Albumin/Globulin Ratio 1.2 (1.0-2.8) SARS-CoV-2 (PCR) (Negative) Imaging Data Chest x-ray: Radiologist's Impression: PROCEDURE: XR CHEST 2V INDICATIONS: short of breath TECHNIQUE: 2 views of the chest were acquired. COMPARISON: [facility], , CHEST 1 VIEW, 10/03/2016, 17:20. [facility], , CHEST 2 VIEW, 01/16/2018, 17:46. [facility], , XR CHEST 1V, 04/08/2019, 13:15. FINDINGS: Surgical changes and devices: None. Lungs and pleura: Lungs are clear. No pleural effusions or pneumothorax. Mediastinum: Mediastinal contours are normal. Heart size is normal. Bones and chest wall: No suspicious bony abnormalities. Accentuated thoracic kyphosis is seen. Age-appropriate bony degenerative changes are seen. Soft tissues appear unremarkable. IMPRESSION: No acute cardiopulmonary process is seen. Dictated by: Warner Cantu M.D. on 02/14/2021 at 16:52 ECG Data Attestation: I personally reviewed and interpreted this ECG as follows: Prior ECG tracings: available for review Interpretation: Normal sinus rhythm rate 106 p.r. interval 146 QRS [address] changes MDM Narrative Medical decision making narrative: Blood work and x-ray are overall reassuring. Patient received breathing treatment and prednisone in the ED. He then left prior to his discharge papers I did refill his Advair and prednisone on since them electronically to [facility]. Discharge Plan Departure Patient Disposition: Home Clinical Impression: Asthma exacerbation Qualifiers: Asthma severity: mild Asthma persistence: persistent Qualified Code(s): J45.31 - Mild persistent asthma with (acute) exacerbation Instructions: DI for Asthma -- Adult Activity Restrictions/Additional Instructions: *You have been diagnosed with asthma exacerbation *What to do: *Continue to take medications as directed--> SENT TO [facility] Prednisone 40 mg once a day for 5 days Advair twice a day *Follow up with your primary care provider in 2-3 days *Return to ER if you should have increasing shortness of breath chest pain palpitation or any new, worsening or concerning symptoms Prescriptions: New prednisone 20 mg tablet 40 mg PO DAILY Qty: 10 RF: 0 fluticasone propion-salmeterol [Advair Diskus] 250-50 mcg/dose blister with device 1 inh inhalation Q12H Qty: 60 RF: 0 No Action fluticasone propion-salmeterol 250-50 mcg/dose blister with device 1 puff Inhalation BID RF: 0 albuterol sulfate 90 mcg/actuation HFA aerosol inhaler 1 puff Inhalation PRN PRN (Reason: Shortness Of Breath) RF: 0 oxycodone 10 mg Tablet 10 mg PO Q6H PRN (Reason: Pain, Severe (7-10)) Qty: 20 RF: 0 albuterol sulfate 90 mcg/actuation HFA aerosol inhaler 2 puff INHALATION Q6H PRN (Reason: shortness of breath or wheezing) Qty: 6.7 RF: 0 fluticasone propion-salmeterol [Advair Diskus] 250-50 mcg/dose blister with d evice 1 inhalation INHALATION BID Qty: 60 RF: 0 Referrals: Kenney Joshi MD [Primary Care Provider] -
--- NOTE | 2021-02-14 17:05 | DI.RAD.S_ITS ---
PROCEDURE: XR CHEST 2V INDICATIONS: short of breath TECHNIQUE: 2 views of the chest were acquired. COMPARISON: [facility], , CHEST 1 VIEW, 10/03/2016, 17:20. [facility], CHEST 2 VIEW, 01/16/2018, 17:46. [facility], , XR CHEST 1V, 04/08/2019, 13:15. FINDINGS: Surgical changes and devices: None. Lungs and pleura: Lungs are clear. No pleural effusions or pneumothorax. Mediastinum: Mediastinal contours are normal. Heart size is normal. Bones and chest wall: No suspicious bony abnormalities. Accentuated thoracic kyphosis is seen. Age-appropriate bony degenerative changes are seen. Soft tissues appear unremarkable. IMPRESSION: No acute cardiopulmonary process is seen. Dictated by: Warner Cantu M.D. on 02/14/2021 at 16:52 Approved by: Warner Cantu M.D. on 02/14/2021 at 16:53
[2021-02-14] MEDS: predniSONE 20 MG TABLET 60 MG PO (17:19)
--- NOTE | 2021-02-14 17:21 | PC.NURSE ---
Pt states that he is out of his advair and is requesting a refill. Pt states that he become SOB with exertion and has some slight accompanying CP
[2021-02-14 17:36] LABS: COVID19 -Nasal RAPID Negative (Negative)
[2021-02-14 17:48] LABS: Add Manual Diff / Slide Review NO; Basophils Absolute Auto 0 /uL (0-100); Basophils Percent Auto 0.3 % (0-2); Eosinophils Absolute Auto 100 /uL (0-450); Hematocrit 42.9 % (41-53); Lymphocytes Absolute Auto 1300 /uL (1100-4500); Lymphocytes Percent Auto 19.3 % (25-40); Mean Corpuscular HGB Conc 32.6 % (30-36); Mean Corpuscular Hemoglobin 25.1 PG (26-34); Mean Corpuscular Volume 77.1 fL (80-100); Monocytes Absolute Auto 600 /uL (0-900); Monocytes Percent Auto 8.7 % (3-14); Neutrophils Absolute Auto 4700 /uL (1500-7000); Neutrophils Percent Auto 70.7 % (50-75); Platelet Count 190 X10^3/uL (150-400); Red Blood Cell Count 5.56 X10^6/uL (4.5-5.9); Red Cell Distribution Width 17.3 % (11.6-14.8); White Blood Cell Count 6.7 X10^3/uL (4.5-11.0)
[2021-02-14] MEDS: ALBUTEROL/IPRATROPIUM 3 ML AMPUL INH (17:55)
[2021-02-14 17:56] VITALS: PULSE 104; RESP 22
[2021-02-14 18:00] LABS: Creatine Kinase 218 U/L (55-170); Magnesium 2.2 mg/dL (1.6-2.3)
[2021-02-14 18:02] LABS: Alanine Aminotransferase 42 IU/L (<50); Albumin 4.1 g/dL (3.5-5.0); Albumin Globulin Ratio 1.2 (1.0-2.8); Alkaline Phosphatase 83 U/L (38-126); Aspartate Aminotransferase 50 IU/L (17-59); BUN Creatinine Ratio 25.4 (6-22); Bilirubin Total 0.4 mg/dL (0.2-1.3); Blood Urea Nitrogen 15 mg/dL (9-20); Calcium 9.1 mg/dL (8.4-10.2); Carbon Dioxide 32 mmol/L (22-32); Chloride 105 mmol/L (98-107); Estimated Glomerular Filt Rate > 60.0 mL/min (>60); Globulin 3.5 g/dL (1.7-4.1); Glucose 116 mg/dL (80-110); HEMOLYSIS 31 (0-50); Potassium 3.9 mmol/L (3.4-5.1); Sodium 143 mmol/L (137-145); Total Protein 7.6 g/dL (6.3-8.2)
[2021-02-14 18:13] VITALS: BP 123/78; PULSE 103; RESP 19; O2SAT 96
[2021-02-14 18:13] LABS: NT-proBNP (BNP-Adult 18+) 89 pg/mL (<125); Troponin I < 0.012 ng/mL (0.01-0.034)
--- NOTE | 2021-02-14 18:13 | PC.NURSE ---
Pt states that he is feeling much improved after his breathing tx. States he is ready to go
[2021-02-14 18:15] LABS: CKMB % Relative Index 1.2 % (1.5-5.0)
== END 2021-02-14 18:28 | disposition home or self-care (01) ==
PROVIDERS: Emergency Provider Emergency Medicine; Family Provider Family Medicine; PCP Family Medicine; Referring Provider Family Medicine
DX: J45.31 Mild persistent asthma with (acute) exacerbation (principal); R00.0 Tachycardia, unspecified; Z20.822 Contact with and (suspected) exposure to COVID-19
CPT/HCPCS: 36415; 71046; 80053; 82550; 82553; 83735; 83880; 84484; 85025; 87635; 93005; 93010; 94640; 99284; C9803

== ENCOUNTER 2021-05-10 11:43 | Observation (INO) | payer MEDICARE, MEDICAID, SELFPAY ==
[2019-04-08 17:02] VITALS: BMI 19.7
[2021-05-10] VITALS (13 sets, daily range): BP systolic 111–135; BP diastolic 61–83; PULSE 78–95; RESP 18–20; TEMP 36.3–36.8; O2SAT 94–99; BMI 22.9
--- NOTE | 2021-05-10 12:07 | ED_ITS ---
HPI - Skin/Abscess/Foreign Bdy General Chief complaint: Skin/Abscess/Foreign Body Stated complaint: TROUBLE BREATHING AND W/LEGS Time Seen by Provider: 05/10/21 11:55 Source: patient Mode of arrival: Wheelchair Limitations: no limitations History of Present Illness HPI narrative: 61-year-old male smoker with history of IV drug abuse admits to being homeless and presents with a friend and a chief complaint of gradually worsening pain, redness and swelling of his left lower extremity over the past few days. He does admit to injecting into his muscles as it is often difficult for him to find vascular access anymore. He has pain with ambulation and states the redness is starting to work its way above his knee along his thigh. He denies any runny nose, sore throat or cough. He does have asthma and ran out of his inhaler a few weeks ago and is also wheezing a bit. He denies any chest pain it is not dizzy or lightheaded. MD complaint: discoloration Onset (ago): day(s) Tetanus up to date: unsure Location: LLE Severity: moderate Quality: burning and aching Relieving factors: none Exacerbating factors: none Context: IVDA Treatments prior to arrival: none Related Data Home Medications Medication Instructions Recorded Confirmed albuterol sulfate 1 puff INHALATION PRN PRN 04/08/19 04/08/19 fluticasone propion-salmeterol 1 puff INHALATION BID 04/08/19 04/08/19 Previous Rx's Medication Instructions Recorded oxycodone 10 mg PO Q6H PRN #20 tab 04/12/19 albuterol sulfate 2 puff INHALATION Q6H PRN #6.7 gram 04/19/20 fluticasone propion-salmeterol 1 inhalation INHALATION BID #60 04/19/20 [Advair Diskus] each fluticasone propion-salmeterol 1 inh INHALATION Q12H #60 ea 02/14/21 [Advair Diskus] prednisone 40 mg PO DAILY #10 tab 02/14/21 Allergies Allergy/AdvReac Type Severity Reaction Status Date / Time amoxicillin [AMOXICILLIN] Allergy Unknown DOES NOT Verified 05/10/21 11:53 REMEMBER SOMETHING NOT GOOD Penicillins [PENICILLINS] Allergy Unknown CAN'T Verified 05/10/21 11:53 REMEMBER RX Review of Systems Constitutional Constitutional: Denies chills, Denies fatigue, Denies fever(s), Denies frequent falls, Denies lethargy and Denies weakness Eyes Eyes: Denies change in vision, Denies eye discharge, Denies irritation and Denies loss of vision ENT Ears, Nose, Mouth, and Throat: Denies change in voice, Denies dizziness, Denies neck pain, Denies sore throat and Denies throat swelling Cardiovascular Cardiovascular: Denies chest pain, Denies irregular heart rhythm, Denies lightheadedness, Denies palpitations, Denies dyspnea, Denies dyspnea on exertion and Denies orthopnea Respiratory Respiratory: Denies cough, Denies dyspnea, Denies dyspnea on exertion and Denies wheezing Gastrointestinal Gastrointestinal: Denies abdominal pain, Denies change in bowel habits, Denies diarrhea, Denies nausea and Denies vomiting Musculoskeletal Musculoskeletal: Denies neck pain and Denies numbness Integumentary/Breasts Skin/Breast: Denies pruritus, Reports erythema, Denies rash, Reports skin pain, Reports skin swelling and Denies wounds Neurologic Neurologic: Denies behavioral changes, Denies confusion, Denies dizziness, Denies frequent falls, Denies loss of vision, Denies numbness and Denies weakness Psychiatric Psychiatric: Denies anxiety, Denies behavioral changes, Denies confusion, Denies depression, Denies homicidal ideation and Denies suicidal ideation Endocrine Endocrine: Denies fatigue, Denies flushing and Denies palpitations Hematologic/Lymphatic Hematologic/Lymphatic: Denies easy bruising Allergic/Immunologic Allergic/Immunologic: Denies urticaria, Denies throat swelling and Denies wheezing Patient History Medical History (Updated 05/10/21 @ 15:29 by Richard Hannon DO) Asthma Chronic back pain greater than 3 months duration Closed intertrochanteric fracture of left femur Depression Drug abuse, IV History of CVA (cerebrovascular accident) Surgical History History of hernia repair Family History Father Unknown family medical history Mother No problems noted. Grandmother Myocardial infarction Grandfather No problems noted. Social History household members: significant other Smoking Status: Current some day smoker Smoking Status: Current some day smoker tobacco type: cigarettes alcohol intake frequency: a few times a month Substance Use Type: heroin, opiates and IV drugs Exam Narrative Exam Narrative: GENERAL: [61] year old patient appears older than stated age. Ill-appearing, slightly disheveled HEAD: Atraumatic. Normocephalic. EYES: Pupils equal round and reactive. Extraocular motions intact. No scleral icterus. No injection or drainage. ENT: Nose without bleeding, purulent drainage. Throat without erythema, tonsillar hypertrophy or exudate. Airway patent. NECK: Trachea midline. Non tender CARDIOVASCULAR: Regular rate and rhythm without murmurs, gallops, or rubs. RESPIRATORY: Decreased breath sounds bilaterally with prolonged expiratory phase and some expiatory wheeze in the apices GASTROINTESTINAL: Abdomen soft, non-tender, nondistended. EXTREMITIES: Left lower extremity with circumferential erythema, warmth and tenderness to palpation, there is lymphangitis extending in the medial knee along medial thigh BACK: Nontender without deformity or crepitance. No flank tenderness. NEURO: AOx3. SKIN: No rash or erythema of visible areas Initial Vital Signs Initial Vital Signs: Vital Signs Temperature 98.3 F 05/10/21 11:53 Pulse Rate 91 H 05/10/21 11:53 Respiratory Rate 20 05/10/21 11:53 Blood Pressure 120/61 05/10/21 11:53 Pulse Oximetry 99 05/10/21 11:53 Course Orders Ordered: ED Orders 05/10/21 12:08 XR chest 1V Stat 05/10/21 12:26 XR foot RT min 3V Stat 05/10/21 12:28 COVID19 - ADMIT (ELECT[employer]ING [employer]ACHINE [employer]ATOR swab/PCR) Stat 05/10/21 14:40 Complete Blood Count AUTO DIFF Stat Comprehensive Metabolic Panel Stat Lactate (Lactic Acid) Stat Sodium Chloride (Normal Saline 0.9%) 1,000 mls @ 1,000 mls/hr IV BOLUS ONE Stop: 05/10/21 15:46 Last Admin: 05/10/21 14:49 Dose: 1,000 mls/hr Documented by: JODIE Discontinued Medications Doxycycline Hyclate (Doxycycline Hyclate 100 Mg Tablet) 100 mg PO NOW ONE Stop: 05/10/21 12:08 Last Admin: 05/10/21 12:48 Dose: Not Given Documented by: JODIE Vancomycin HCl/Dextrose (Vancomycin) 1,500 mg in 300 mls @ 200 mls/hr IV NOW ONE Stop: 05/10/21 13:55 Last Admin: 05/10/21 14:47 Dose: 200 mls/hr Documented by: JODIE Oxycodone/Acetaminophen (Oxycodone/Acetaminophen 5/325 Tablet) 2 tab PO NOW ONE Stop: 05/10/21 12:32 Last Admin: 05/10/21 12:37 Dose: 2 tab Documented by: JODIE Vital Signs Vital signs: Vital Signs - 8 hr 05/10/21 11:53 05/10/21 12:37 05/10/21 12:39 Temperature 98.3 F 98.3 F Pulse Rate 91 H 93 H Respiratory Rate 20 Blood Pressure 120/61 Pulse Oximetry 99 98 05/10/21 13:00 05/10/21 13:28 05/10/21 13:30 Temperature Pulse Rate 95 H 87 84 Respiratory Rate 20 Blood Pressure 135/83 116/68 Pulse Oximetry 97 95 94 05/10/21 14:00 05/10/21 14:30 05/10/21 15:00 Temperature Pulse Rate 80 81 85 Respiratory Rate Blood Pressure 119/65 112/63 111/62 Pulse Oximetry 95 97 97 MDM - Skin/Abscess/Foreign Bdy Lab Data Result diagrams: 05/10/21 14:40 05/10/21 14:40 Labs: Lab Results 05/10/21 05/10/21 05/10/21 Range/Units 12:28 14:40 14:40 WBC 9.5 (4.5-11.0) X10^3/uL RBC 4.53 (4.5-5.9) X10^6/uL Hgb 11.8 L (13.5-17.5) g/dL Hct 35.8 L (41-53) % MCV 79.1 L (80-100) fL MCH 26.1 (26-34) PG MCHC 33.0 (30-36) % RDW 14.5 (11.6-14.8) % Plt Count 239 (150-400) X10^3/uL Neut % (Auto) 76.4 H (50-75) % Lymph % (Auto) 11.6 L (25-40) % [place] % (Auto) 11.5 (3-14) % Eos % (Auto) 0.4 L (2-4) % Baso % (Auto) 0.1 (0-2) % Neut # (Auto) 7200 H (5952-9747) /uL Lymph # (Auto) 1100 (0049-3996) /uL [place] # (Auto) 1100 H (0-900) /uL Eos # (Auto) 0 (0-450) /uL Baso # (Auto) 0 (0-100) /uL Sodium 135 L (137-145) mmol/L Potassium 3.5 (3.4-5.1) mmol/L Chloride 97 L (98-107) mmol/L Carbon Dioxide 32 (22-32) mmol/L BUN 14 (9-20) mg/dL Creatinine 0.54 L (0.66-1.25) mg/dL Estimated GFR > 60.0 (>60) mL/min BUN/Creatinine Ratio 25.9 H (6-22) Glucose 109 (80-110) mg/dL Lactate (0.7-2.1) mmol/L Calcium 8.5 (8.4-10.2) mg/dL Total Bilirubin 0.6 (0.2-1.3) mg/dL AST 33 (17-59) IU/L ALT 26 (<50) IU/L Alkaline Phosphatase 86 (38-126) U/L Total Protein 7.2 (6.3-8.2) g/dL Albumin 3.5 (3.5-5.0) g/dL Globulin 3.7 (1.7-4.1) g/dL Albumin/Globulin Ratio 0.9 L (1.0-2.8) SARS-CoV-2 (PCR) Negative (Negative) 05/10/21 Range/Units 14:40 WBC (4.5-11.0) X10^3/uL RBC (4.5-5.9) X10^6/uL Hgb (13.5-17.5) g/dL Hct (41-53) % MCV (80-100) fL MCH (26-34) PG MCHC (30-36) % RDW (11.6-14.8) % Plt Count (150-400) X10^3/uL Neut % (Auto) (50-75) % Lymph % (Auto) (25-40) % [place] % (Auto) (3-14) % Eos % (Auto) (2-4) % Baso % (Auto) (0-2) % Neut # (Auto) (5876-1452) /uL Lymph # (Auto) (9062-2049) /uL [place] # (Auto) (0-900) /uL Eos # (Auto) (0-450) /uL Baso # (Auto) (0-100) /uL Sodium (137-145) mmol/L Potassium (3.4-5.1) mmol/L Chloride (98-107) mmol/L Carbon Dioxide (22-32) mmol/L BUN (9-20) mg/dL Creatinine (0.66-1.25) mg/dL Estimated GFR (>60) mL/min BUN/Creatinine Ratio (6-22) Glucose (80-110) mg/dL Lactate 0.8 (0.7-2.1) mmol/L Calcium (8.4-10.2) mg/dL Total Bilirubin (0.2-1.3) mg/dL AST (17-59) IU/L ALT (<50) IU/L Alkaline Phosphatase (38-126) U/L Total Protein (6.3-8.2) g/dL Albumin (3.5-5.0) g/dL Globulin (1.7-4.1) g/dL Albumin/Globulin Ratio (1.0-2.8) SARS-CoV-2 (PCR) (Negative) Discharge Plan Departure Patient Disposition: Admitted As Inpatient Clinical Impression: Cellulitis of left leg Prescriptions: No Action prednisone 20 mg tablet 40 mg PO DAILY Qty: 10 RF: 0 fluticasone propion-salmeterol [Advair Diskus] 250-50 mcg/dose blister with device 1 inh inhalation Q12H Qty: 60 RF: 0 fluticasone propion-salmeterol 250-50 mcg/dose blister with device 1 puff Inhalation BID RF: 0 albuterol sulfate 90 mcg/actuation HFA aerosol inhaler 1 puff Inhalation PRN PRN (Reason: Shortness Of Breath) RF: 0 oxycodone 10 mg Tablet 10 mg PO Q6H PRN (Reason: Pain, Severe (7-10)) Qty: 20 RF: 0 albuterol sulfate 90 mcg/actuation HFA aerosol inhaler 2 puff INHALATION Q6H PRN (Reason: shortness of breath or wheezing) Qty: 6.7 RF: 0 fluticasone propion-salmeterol [Advair Diskus] 250-50 mcg/dose blister with device 1 inhalation INHALATION BID Qty: 60 RF: 0 Referrals: Kenney Joshi MD [Primary Care Provider] -
--- NOTE | 2021-05-10 12:08 | DI.RAD.S_ITS ---
PROCEDURE: XR CHEST 1V INDICATIONS: shortness of breath TECHNIQUE: One view of the chest was acquired. COMPARISON: [facility], [place], XR CHEST 2V, 02/14/2021, 17:20. [facility], [place], XR CHEST 1V, 04/08/2019, 13:15. FINDINGS: Surgical changes and devices: None. Lungs and pleura: Lungs are clear. No pleural effusions or pneumothorax. Mediastinum: Mediastinal contours appear normal. Heart size is normal. Bones and chest wall: No suspicious bony lesions. Overlying soft tissues appear unremarkable. IMPRESSION: No acute cardiopulmonary abnormality. Dictated by: Matt Alejandro M.D. on 05/10/2021 at 13:09 Approved by: Matt Alejandro M.D. on 05/10/2021 at 13:10
--- NOTE | 2021-05-10 12:26 | DI.RAD.S_ITS ---
PROCEDURE: XR FOOT RT MIN 3V INDICATIONS: pain, swelling, erythema, concern for osteo TECHNIQUE: 3 views of the foot were acquired. COMPARISON: None. FINDINGS: Bones: No fractures or dislocations. No osseous erosion identified. No periosteal reaction. No suspicious bony lesions. Soft tissues: No tibiotalar joint effusion. Achilles tendon appears normal. IMPRESSION: No osseous erosion identified. Radiographs are relatively insensitive for the detection of early osteomyelitis. If clinically indicated consider three-phase bone scan or MRI. Dictated by: Matt Alejandro M.D. on 05/10/2021 at 13:10 Approved by: Matt Alejandro M.D. on 05/10/2021 at 13:12
--- NOTE | 2021-05-10 12:31 | PC.NURSE ---
Pt originally told the MD that he was not willing to stay d/t wanting to control his own pain/self medicate and him and the MD agreed upon PO o/p antbx treatment. When I went in to draw blood we got to talking and I reitterated how serious this infection is and the chances of PO vs IV antbx would make such a difference. Pt is very concerned with pain control. I spoke with the MD and then with the pt again and we agreed upon 2 Percocet 5/325s would be acceptable and the pt agreed to stay. US guided IV order placed. Verbally contracted with pt that he is not to leave or interfere with his IV. Pt is agreeable to all of this and is very much wanting help with his infection.
[2021-05-10] MEDS: OXYCODONE/ACETAMINOPHEN 5/325 TABLET 2 TAB PO (12:37)
[2021-05-10 13:30] LABS: COVID19 - ADMIT (NP swab/PCR) Negative (Negative)
[2021-05-10] MEDS: VANCOMYCIN 1,500 MG/300 ML PIGGYBACK 200 MG IV (14:47)
[2021-05-10] MEDS: SODIUM CHLORIDE 0.9% 1,000 ML 1000 ML IV (14:49)
--- NOTE | 2021-05-10 14:50 | PC.NURSE ---
PICC KWASI Webb placed Left UA us guided iv positive blood return, easy flush, labs obtained, ivf started and iv abx infusing.
[2021-05-10 14:52] LABS: Add Manual Diff / Slide Review NO; Basophils Absolute Auto 0 /uL (0-100); Basophils Percent Auto 0.1 % (0-2); Eosinophils Absolute Auto 0 /uL (0-450); Eosinophils Percent Auto 0.4 % (2-4); Hematocrit 35.8 % (41-53); Hemoglobin 11.8 g/dL (13.5-17.5); Lymphocytes Absolute Auto 1100 /uL (1100-4500); Lymphocytes Percent Auto 11.6 % (25-40); Mean Corpuscular Hemoglobin 26.1 PG (26-34); Mean Corpuscular Volume 79.1 fL (80-100); Monocytes Absolute Auto 1100 /uL (0-900); Monocytes Percent Auto 11.5 % (3-14); Neutrophils Absolute Auto 7200 /uL (1500-7000); Neutrophils Percent Auto 76.4 % (50-75); Platelet Count 239 X10^3/uL (150-400); Red Blood Cell Count 4.53 X10^6/uL (4.5-5.9); Red Cell Distribution Width 14.5 % (11.6-14.8); White Blood Cell Count 9.5 X10^3/uL (4.5-11.0)
[2021-05-10 15:03] LABS: Alanine Aminotransferase 26 IU/L (<50); Albumin 3.5 g/dL (3.5-5.0); Albumin Globulin Ratio 0.9 (1.0-2.8); Alkaline Phosphatase 86 U/L (38-126); Aspartate Aminotransferase 33 IU/L (17-59); BUN Creatinine Ratio 25.9 (6-22); Bilirubin Total 0.6 mg/dL (0.2-1.3); Blood Urea Nitrogen 14 mg/dL (9-20); Calcium 8.5 mg/dL (8.4-10.2); Carbon Dioxide 32 mmol/L (22-32); Chloride 97 mmol/L (98-107); Estimated Glomerular Filt Rate > 60.0 mL/min (>60); Globulin 3.7 g/dL (1.7-4.1); Glucose 109 mg/dL (80-110); HEMOLYSIS < 15 (0-50); Potassium 3.5 mmol/L (3.4-5.1); Sodium 135 mmol/L (137-145); Total Protein 7.2 g/dL (6.3-8.2)
[2021-05-10 15:04] LABS: Lactate (Lactic Acid) 0.8 mmol/L (0.7-2.1)
--- NOTE | 2021-05-10 16:44 | PM.HP.1 ---
History of Present Illness History of Present Illness Date Patient Seen: 05/10/21 Time Patient Seen: 15:44 Chief complaint: TROUBLE BREATHING AND W/LEGS Narrative: Mr. Ramesh is a 61M with PMH asthma, IVDU with heroin, tobacco use, asthma who comes in to the hospital with worsening pain over his left leg. He states the leg pain has worsened over the last few days. Has noticed worse swelling and redness. No fevers/chills. He does inject into his legs at times, into the muscle because he has trouble finding veins to access. The pain started in the lower part of the leg but the redness is now spreading up the leg. He also has asthma and has run out of his inhaler and feels wheezy and short of breath. He does not have cough, chest pain, abdominal pain, dysuria. In the ED, he had normal vitals with no fever. Labs notable for WBC of 9.5 with 76% PMNs, creatinine 0.54, lactate 0.8, COVID negative. He was ordered for vancomycin and admitted for further treatment. Patient History Medical History Asthma Chronic back pain greater than 3 months duration Closed intertrochanteric fracture of left femur Depression Drug abuse, IV History of CVA (cerebrovascular accident) Surgical History History of hernia repair Family & Social History Family History Father Unknown family medical history Mother No problems noted. Grandmother Myocardial infarction Grandfather No problems noted. Social History: household members significant other Safety & Behavioral: Feels Safe in Current Yes Environment Tobacco & Substance use: Tobacco type cigarettes,cannabis/marijuana Smoking Status Current some day smoker alcohol intake frequency a few times a month Substance Use Type opiates,IV drugs,heroin Meds Home Medications and Allergies Home Medications Medication Instructions Recorded Confirmed Type albuterol sulfate 1 puff INHALATION PRN PRN 04/08/19 04/08/19 History fluticasone propion-salmeterol 1 puff INHALATION BID 04/08/19 04/08/19 History oxycodone 10 mg PO Q6H PRN #20 tab 04/12/19 Rx albuterol sulfate 2 puff INHALATION Q6H PRN #6.7 gram 04/19/20 Rx fluticasone propion-salmeterol 1 inhalation INHALATION BID #60 04/19/20 Rx [Advair Diskus] each fluticasone propion-salmeterol 1 inh INHALATION Q12H #60 ea 02/14/21 Rx [Advair Diskus] prednisone 40 mg PO DAILY #10 tab 02/14/21 Rx Allergies Allergy/AdvReac Type Severity Reaction Status Date / Time amoxicillin [AMOXICILLIN] Allergy Unknown DOES NOT Verified 05/10/21 11:53 REMEMBER SOMETHING NOT GOOD Penicillins [PENICILLINS] Allergy Unknown CAN'T Verified 05/10/21 11:53 REMEMBER RX Review of Systems Review of Systems Narrative: 14 systems reviewed and negative aside from HPI Exam Vital Signs (past 8 hours): - 05/10/21 11:53 05/10/21 12:37 05/10/21 12:39 Temperature 98.3 F 98.3 F Pulse Rate 91 H 93 H Respiratory Rate 20 Blood Pressure 120/61 Pulse Oximetry 99 98 05/10/21 13:00 05/10/21 13:28 05/10/21 13:30 Temperature Pulse Rate 95 H 87 84 Respiratory Rate 20 Blood Pressure 135/83 116/68 Pulse Oximetry 97 95 94 05/10/21 14:00 05/10/21 14:30 05/10/21 15:00 Temperature Pulse Rate 80 81 85 Respiratory Rate Blood Pressure 119/65 112/63 111/62 Pulse Oximetry 95 97 97 05/10/21 15:30 05/10/21 15:35 05/10/21 16:34 Temperature 97.4 F L Pulse Rate 91 H 78 Respiratory Rate 18 Blood Pressure 113/72 122/61 Pulse Oximetry 96 95 Oxygen Delivery Method Room Air Narrative Exam Narrative: GEN: chronically ill appearing, no acute distress HEENT: PERRL, moist mucous membranes NECK: Trachea midline. No JVD CARDIOVASCULAR: Regular rate and rhythm without murmurs RESPIRATORY: wheezes bilaterally GASTROINTESTINAL: Abdomen soft, non-tender, nondistended, no organomegaly, normal bowel sounds EXTREMITIES: left lower extremity with erythema most notable on the alvarado, entire calf slightly swollen, just under the new appear more ecchymotic rash, palpation is warm and tender, lymphangitic spread extends above the knee on the medial thigh, no crepitus or fluctuance BACK: Nontender without deformity or crepitance. No flank tenderness. NEURO: awake and alert, moving all extremities with no deficits SKIN: cellulitis as noted above, scattered track crane on upper and lower extremities PSYCH: cooperative, pleasant Objective Labs Result Diagrams: 05/10/21 14:40 05/10/21 14:40 Labs: Laboratory Results - last 24 hr 05/10/21 05/10/21 05/10/21 12:28 14:40 14:40 WBC 9.5 RBC 4.53 Hgb 11.8 L Hct 35.8 L MCV 79.1 L MCH 26.1 MCHC 33.0 RDW 14.5 Plt Count 239 Neut % (Auto) 76.4 H Lymph % (Auto) 11.6 L [place] % (Auto) 11.5 Eos % (Auto) 0.4 L Baso % (Auto) 0.1 Neut # (Auto) 7200 H Lymph # (Auto) 1100 [place] # (Auto) 1100 H Eos # (Auto) 0 Baso # (Auto) 0 Sodium 135 L Potassium 3.5 Chloride 97 L Carbon Dioxide 32 BUN 14 Creatinine 0.54 L Estimated GFR > 60.0 BUN/Creatinine Ratio 25.9 H Glucose 109 Lactate Calcium 8.5 Total Bilirubin 0.6 AST 33 ALT 26 Alkaline Phosphatase 86 Total Protein 7.2 Albumin 3.5 Globulin 3.7 Albumin/Globulin Ratio 0.9 L SARS-CoV-2 (PCR) Negative 05/10/21 14:40 WBC RBC Hgb Hct MCV MCH MCHC RDW Plt Count Neut % (Auto) Lymph % (Auto) [place] % (Auto) Eos % (Auto) Baso % (Auto) Neut # (Auto) Lymph # (Auto) [place] # (Auto) Eos # (Auto) Baso # (Auto) Sodium Potassium Chloride Carbon Dioxide BUN Creatinine Estimated GFR BUN/Creatinine Ratio Glucose Lactate 0.8 Calcium Total Bilirubin AST ALT Alkaline Phosphatase Total Protein Albumin Globulin Albumin/Globulin Ratio SARS-CoV-2 (PCR) Assessment & Plan Assessment & Plan narrative: Mr. Ramesh is a 61M with PMH of asthma, active heroin use who presents with left leg cellulitis. 1. Acute left leg cellulitis -no evidence of sepsis currently -has significant extent of cellulitis in left lower extremity, with lymphangitic spread -no abscess or fluctuance or crepitus, so doubt abscess or nec fasc, xray showed no evidence of osteomyelitis -ordered for vancomycin -blood cultures ordered, but after ED already ordered antibiotics -pain control with tylenol, nsaids, and methadone -us b/l lower extremities to rule out DVT 2. Heroin abuse -uses chronically for maintenance per patient -not currently withdrawing -interested in stopping use of heroin -will order methadone here -SW consult 3. Tobacco abuse -ordered for nicotine patch -encouraged cessation of smoking 4. Asthma, chronic -ran out of meds -RT eval -ordered for PRN nebs 5. Anemia, chronic -mild appears stable from prior -no evidence of bleeding, no need for transfusion DIET: regular IVF: None DVT ppx: lovenox sc CODE: Full, proxy is Bridgette Beltran
--- NOTE | 2021-05-10 16:47 | DI.US.S_ITS ---
PROCEDURE: US PERIPH VENOUS LOW EXTREM BI INDICATIONS: dvt? TECHNIQUE: Real-time imaging, as well as color and pulse Doppler interrogation, were performed of the deep veins of both legs from the inguinal ligament to the popliteal fossa. COMPARISON: None. FINDINGS: Right: The common femoral, femoral and popliteal veins are normally compressible, and free of intraluminal thrombus. Color and pulse Doppler demonstrate normal phasic intravascular flow. There is normal augmentation response to distal compression maneuver. Left: The common femoral, femoral and popliteal veins are normally compressible, and free of intraluminal thrombus. Color and pulse Doppler demonstrate normal phasic intravascular flow. There is normal augmentation response to distal compression maneuver. IMPRESSION: No lower extremity DVT in either leg. Dictated by: Matt Alejandro M.D. on 05/10/2021 at 18:51 Approved by: Matt Alejandro M.D. on 05/10/2021 at 18:52
[2021-05-10] MEDS: METHADONE 10 MG TABLET PO (18:33)
[2021-05-11] VITALS (8 sets, daily range): BP systolic 109–117; BP diastolic 41–58; PULSE 67–91; RESP 16–18; TEMP 35.8–37.2; O2SAT 94–100
[2021-05-11] MEDS: VANCOMYCIN 1,250 MG/250 ML PIGGYBACK 250 MG IV ×2 (01:37→13:48)
[2021-05-11] MEDS: ALBUTEROL 2.5 MG/3 ML NEB (ADULT) INH ×4 (01:38→19:12)
[2021-05-11 05:19] LABS: Add Manual Diff / Slide Review NO; Basophils Absolute Auto 0 /uL (0-100); Basophils Percent Auto 0.1 % (0-2); Eosinophils Absolute Auto 0 /uL (0-450); Eosinophils Percent Auto 0.1 % (2-4); Hematocrit 32.4 % (41-53); Hemoglobin 10.8 g/dL (13.5-17.5); Lymphocytes Absolute Auto 1200 /uL (1100-4500); Lymphocytes Percent Auto 12.7 % (25-40); Mean Corpuscular HGB Conc 33.5 % (30-36); Mean Corpuscular Hemoglobin 26.2 PG (26-34); Mean Corpuscular Volume 78.2 fL (80-100); Monocytes Absolute Auto 1000 /uL (0-900); Neutrophils Absolute Auto 7100 /uL (1500-7000); Neutrophils Percent Auto 76.1 % (50-75); Platelet Count 223 X10^3/uL (150-400); Red Blood Cell Count 4.14 X10^6/uL (4.5-5.9); Red Cell Distribution Width 14.8 % (11.6-14.8); White Blood Cell Count 9.3 X10^3/uL (4.5-11.0)
[2021-05-11 05:31] LABS: Blood Urea Nitrogen 10 mg/dL (9-20); Calcium 7.9 mg/dL (8.4-10.2); Carbon Dioxide 30 mmol/L (22-32); Chloride 99 mmol/L (98-107); Estimated Glomerular Filt Rate > 60.0 mL/min (>60); Glucose 128 mg/dL (80-110); HEMOLYSIS 17 (0-50); Potassium 3.4 mmol/L (3.4-5.1); Sodium 132 mmol/L (137-145)
[2021-05-11] MEDS: NICOTINE 14 PATCH 14 MG TOP (08:36)
[2021-05-11] MEDS: ENOXAPARIN 40 MG/0.4 ML SYRINGE SUBCUT (08:36)
[2021-05-11] MEDS: METHADONE 10 MG TABLET 15 MG PO (08:37)
[2021-05-11] MEDS: IBUPROFEN 600 MG TABLET PO (08:37)
[2021-05-11] MEDS: BUDESONIDE 0.5 MG/2 ML NEB INH ×2 (10:17→19:12)
--- NOTE | 2021-05-11 11:25 | PM.PN.1 ---
Subjective Subjective Date Patient Seen: 05/11/21 Time Patient Seen: 08:25 Interval history: Today he says his leg pain feels worse, he had heroin use yesterday and today he says he is feeling like he is withdrawing. The methadone has helped slightly. Exam Vital Signs (past 8 hours): - 05/11/21 07:20 05/11/21 10:23 Temperature 98.3 F Pulse Rate 79 68 Respiratory Rate 18 16 Blood Pressure 109/58 L Pulse Oximetry 95 95 Oxygen Delivery Method Room Air Oxygen Flow Rate 0 Narrative Exam Narrative: GEN: chronically ill appearing, no acute distress HEENT: PERRL, moist mucous membranes NECK: Trachea midline. No JVD CARDIOVASCULAR: Regular rate and rhythm without murmurs RESPIRATORY: wheezes bilaterally GASTROINTESTINAL: Abdomen soft, non-tender, nondistended, no organomegaly, normal bowel sounds EXTREMITIES: left lower extremity with erythema most notable on the alvarado, entire calf slightly swollen, just under the new appear more ecchymotic rash, palpation is warm and tender, lymphangitic spread extends above the knee on the medial thigh, no crepitus or fluctuance BACK: Nontender without deformity or crepitance. No flank tenderness. NEURO: awake and alert, moving all extremities with no deficits SKIN: cellulitis as noted above, scattered track crane on upper and lower extremities PSYCH: cooperative, pleasant Objective Labs Result Diagrams: 05/11/21 05:10 05/11/21 05:10 Labs: Laboratory Results - last 24 hr 05/10/21 05/10/21 05/10/21 12:28 14:40 14:40 WBC 9.5 RBC 4.53 Hgb 11.8 L Hct 35.8 L MCV 79.1 L MCH 26.1 MCHC 33.0 RDW 14.5 Plt Count 239 Neut % (Auto) 76.4 H Lymph % (Auto) 11.6 L [place] % (Auto) 11.5 Eos % (Auto) 0.4 L Baso % (Auto) 0.1 Neut # (Auto) 7200 H Lymph # (Auto) 1100 [place] # (Auto) 1100 H Eos # (Auto) 0 Baso # (Auto) 0 Sodium 135 L Potassium 3.5 Chloride 97 L Carbon Dioxide 32 BUN 14 Creatinine 0.54 L Estimated GFR > 60.0 BUN/Creatinine Ratio 25.9 H Glucose 109 Lactate Calcium 8.5 Total Bilirubin 0.6 AST 33 ALT 26 Alkaline Phosphatase 86 Total Protein 7.2 Albumin 3.5 Globulin 3.7 Albumin/Globulin Ratio 0.9 L SARS-CoV-2 (PCR) Negative 05/10/21 05/11/21 05/11/21 14:40 05:10 05:10 WBC 9.3 RBC 4.14 L Hgb 10.8 L Hct 32.4 L MCV 78.2 L MCH 26.2 MCHC 33.5 RDW 14.8 Plt Count 223 Neut % (Auto) 76.1 H Lymph % (Auto) 12.7 L [place] % (Auto) 11.0 Eos % (Auto) 0.1 L Baso % (Auto) 0.1 Neut # (Auto) 7100 H Lymph # (Auto) 1200 [place] # (Auto) 1000 H Eos # (Auto) 0 Baso # (Auto) 0 Sodium 132 L Potassium 3.4 Chloride 99 Carbon Dioxide 30 BUN 10 Creatinine 0.50 L Estimated GFR > 60.0 BUN/Creatinine Ratio 20.0 Glucose 128 H Lactate 0.8 Calcium 7.9 L Total Bilirubin AST ALT Alkaline Phosphatase Total Protein Albumin Globulin Albumin/Globulin Ratio SARS-CoV-2 (PCR) [facility] Medical History Asthma Chronic back pain greater than 3 months duration Closed intertrochanteric fracture of left femur Depression Drug abuse, IV History of CVA (cerebrovascular accident) Surgical History History of hernia repair Family History Father Unknown family medical history Mother No problems noted. Grandmother Myocardial infarction Grandfather No problems noted. Social History household members: significant other Smoking Status: Current some day smoker alcohol intake: current Assessment & Plan Assessment & Plan narrative: Mr. Ramesh is a 61M with PMH of asthma, active heroin use who presents with left leg cellulitis. 1. Acute left leg cellulitis -no evidence of sepsis currently -has significant extent of cellulitis in left lower extremity, with lymphangitic spread -no abscess or fluctuance or crepitus, so doubt abscess or nec fasc, xray showed no evidence of osteomyelitis -ordered for vancomycin -blood cultures ordered, but after ED already ordered antibiotics -pain control with tylenol, nsaids, and methadone -us b/l lower extremities to rule out DVT 2. Heroin abuse -uses chronically for maintenance per patient -not currently withdrawing -interested in stopping use of heroin -will order methadone here, started at 10mg daily, but continues to withdraw so increased to 15mg BID -SW consult 3. Tobacco abuse -ordered for nicotine patch -encouraged cessation of smoking 4. Asthma, chronic -ran out of meds -RT eval -ordered for PRN nebs 5. Anemia, chronic -mild appears stable from prior -no evidence of bleeding, no need for transfusion DIET: regular IVF: None DVT ppx: lovenox sc CODE: Full, proxy is Bridgette Ledesma VTE Deep Vein Thrombosis/Pulmonary Embolism Present on Admission: No
--- NOTE | 2021-05-11 11:45 | CM.IDA ---
Initial DCP Assessment Note Pt is a 61 yo male, currently living in his van in the [facility], arrives with left leg cellulitis. Patient admits to IV heroin use yesterday, Dr Paige managing w/d w/methadone. PCP: Kenney Joshi Payer: [facility] Reviewed chart, pt discussed in multidisciplinary rounds this morning. Met w/patient, introduced TRIAGE SPECIALIST role. Patient appears lethargic, opens his eyes occasionally and answers questions w/brief responses. Patient explains he has been living, in his van, in the [facility] for awhile. Patient occasionally couch surfs at friend's homes. Patient receives approx $700 in monthly income from social security disability. Patient states I don't know re: being on any housing lists. Patient lived on [address] 20 years, his son Derik and grandson Derik Cadena still live on [address], together, and are sober. Patient's ex sarah Angeles, also homeless and an active IVDU, stays around [place]. Patient admits to .5gram- 1 gram IV Heroin use daily. Patient had been sober for 5 years, approx 7 years ago, and states he remained sober after a year long treatment program, and subsequent stays at recovery houses, attendance to support groups and close contact w/a sponsor. Patient says he relapsed when he lost touch w/his sponsor. Asked patient today if he is interested in staying clean, and, what do you want for yourself? Patient says I'm not sure right now Patient pleasant and appreciative for the visit, agreeable to another visit from this TRIAGE SPECIALIST when feeling better. Updated RN CARLO Marinelli Discharge Planning/Care Management CM Discharge Assessment Start: 05/11/21 11:41 Freq: Status: Active Protocol: Document 05/11/21 11:42 SHERLEY (Rec: 05/11/21 11:45 SHERLEY [id number]) Discharge Planning Assessment Assigned Insurance Customer Service Specialist CARLO Scanlon DPOA/Assigned Designee Name Only contact on chart is ex sarah Angeles Contact Information [phone] Advance Directives? No Advance Directives on File No History Provided By Patient,Medical Record Prior Living Arrangements Homeless Comment Sleeps at friend's homes and in his van Independent with ADL's Yes Is patient alert and oriented? Yes Barriers to Discharge Yes Comment Homeless, lives on a fixed income, active/daily IVDU, h/o poly substance abuse
--- NOTE | 2021-05-11 14:13 | PC.NURSE ---
Pt has been mostly sleeping this shift. Easily awakens to verbal and is able to follow directions, move extremities, and make his needs known. Oriented x4. RA. VSS. Pt has declined most care such as tending to hygiene, having linen changed, getting OOB to chair, etc. His PO intake has been poor. UOP this shift is 125 ML with bladder scan done showing 114 ML. Reported the above assessment findings to hospitalist. Orders received for NS @ 100 ML/HR continuous.
[2021-05-11] MEDS: SODIUM CHLORIDE 0.9% 1,000 ML 100 ML IV (14:16)
[2021-05-11] MEDS: METHADONE 5 MG TABLET PO (19:14)
[2021-05-11] MEDS: PANTOPRAZOLE DR 20 MG TABLET PO (20:45)
[2021-05-11] MEDS: METHADONE 10 MG TABLET 20 MG PO (20:45)
[2021-05-11] MEDS: MAGNESIUM HYDROXIDE 30 ML UDC PO (20:45)
[2021-05-12] MEDS: SODIUM CHLORIDE 0.9% 1,000 ML 100 ML IV (00:11)
[2021-05-12 00:45] VITALS: BP 112/69; PULSE 79; RESP 20; TEMP 36.8; O2SAT 94
[2021-05-12] MEDS: VANCOMYCIN TROUGH 1 REQUEST MISC (01:00)
[2021-05-12 01:33] LABS: Vancomycin Trough 7.7 ug/mL (10-20)
[2021-05-12] MEDS: VANCOMYCIN 1,250 MG/250 ML PIGGYBACK 250 MG IV (02:08)
[2021-05-12 04:55] LABS: Hematocrit 31.9 % (41-53); Hemoglobin 10.6 g/dL (13.5-17.5); Mean Corpuscular HGB Conc 33.3 % (30-36); Mean Corpuscular Hemoglobin 26.2 PG (26-34); Mean Corpuscular Volume 78.5 fL (80-100); Platelet Count 213 X10^3/uL (150-400); Red Blood Cell Count 4.06 X10^6/uL (4.5-5.9); White Blood Cell Count 8.3 X10^3/uL (4.5-11.0)
[2021-05-12 05:04] LABS: BUN Creatinine Ratio 17.1 (6-22); Blood Urea Nitrogen 7 mg/dL (9-20); Calcium 7.8 mg/dL (8.4-10.2); Carbon Dioxide 31 mmol/L (22-32); Chloride 103 mmol/L (98-107); Estimated Glomerular Filt Rate > 60.0 mL/min (>60); Glucose 104 mg/dL (80-110); HEMOLYSIS < 15 (0-50); Potassium 3.5 mmol/L (3.4-5.1); Sodium 136 mmol/L (137-145)
[2021-05-12 08:00] VITALS: BP 132/76; PULSE 78; RESP 18; TEMP 36.3; O2SAT 98
[2021-05-12 08:15] VITALS: O2SAT 98
[2021-05-12] MEDS: METHADONE 10 MG TABLET 20 MG PO (08:26)
[2021-05-12] MEDS: NICOTINE 14 PATCH 14 MG TOP (08:26)
[2021-05-12] MEDS: PANTOPRAZOLE DR 20 MG TABLET PO (08:26)
[2021-05-12 08:42] VITALS: PULSE 85; RESP 14; O2SAT 94
[2021-05-12] MEDS: BUDESONIDE 0.5 MG/2 ML NEB INH (08:42)
[2021-05-12 11:02] VITALS: PULSE 83; RESP 16; O2SAT 97
[2021-05-12] MEDS: ALBUTEROL 2.5 MG/3 ML NEB (ADULT) INH (11:02)
--- NOTE | 2021-05-12 11:09 | CM.DPNOTE ---
DCP Cont DC order in place. KWASI Tracy suggests patient leave w/a list of primary care providers in [place]. Met w/patient before DC, patient has a friend at bedside. Patient receiving a breathing treatment, so somewhat difficult to communicate. Provided patient w/list of PCPs in [place], updated Jun 2020, encouraged patient to call these offices, ask who is taking new patients and who would accept his insurance. Also provided Halie Lacy's card, w/the [facility], explained that a person needs to be sober to qualify for motel voucher or emergency housing programs at [facility]. Provided information for [facility] and encouraged patient to walk in Saturday morning to attempt to establish [facility] treatment. [facility] d/t staffing shortages, and increased community need. Returned to patient's room to suggest [facility] or ? Patient says he has the number for [facility]. No further assistance requested from patient and/or his friend at bedside. Plan: DC back to streets/van in [place], close outpatient f/u recommended, patient needs to establish w/a PCP JW
--- NOTE | 2021-05-12 11:47 | PC.NURSE ---
Pt dc'd to home per order at 1130. Prior to leaving, pt was able to shower and dress himself independently. Provided dc packet, verbal and written education, written Rx and education for use. Instructed pt to return for worsening symptoms. Educated to use of abx and instructed him to complete course even if feeling better. Educated to substance abuse and instructed pt that taking add'l drugs not prescribed could result in . Pt not interested in smoking cessation at this time but did instruct pt not to use tobacco products with nicotine patch in place. Pt verbalizes understanding of dc teaching. Belongings gathered and sent with pt. Pt was escorted via w/c with all belongings to [facility] in no apparent distress.
--- NOTE | 2021-05-12 19:57 | PM.DS.1 ---
History of Present Illness History of Present Illness Chief complaint: TROUBLE BREATHING AND W/LEGS Narrative: Mr. Ramesh is a 61M with PMH asthma, IVDU with heroin, tobacco use, asthma who comes in to the hospital with worsening pain over his left leg. He states the leg pain has worsened over the last few days. Has noticed worse swelling and redness. No fevers/chills. He does inject into his legs at times, into the muscle because he has trouble finding veins to access. The pain started in the lower part of the leg but the redness is now spreading up the leg. He also has asthma and has run out of his inhaler and feels wheezy and short of breath. He does not have cough, chest pain, abdominal pain, dysuria. In the ED, he had normal vitals with no fever. Labs notable for WBC of 9.5 with 76% PMNs, creatinine 0.54, lactate 0.8, COVID negative. He was ordered for vancomycin and admitted for further treatment. Discharge Providers Provider Date of admission: 05/10/21 15:49 Discharge Date: 05/12/21 Primary care physician: Kenney Joshi MD Consults: 05/10/21 16:35 Consult to Respiratory Therapy Evaluate & Treat Comment: Physician Instructions: Evaluate and treat 05/10/21 16:45 Consult to [employer] - Nuclear Medicine Specialist Routine Comment: [employer] Consult: Substance Abuse Assess Discharge provider: Haider Paige MD Summary Hospital Course Discharge Diagnosis: 1. Acute left leg cellulitis 2. Heroin abuse with acute withdrawal 3. Tobacco abuse 4. Asthma, chronic 5. Anemia, chronic Hospital Course: Mr. Ramesh was admitted with a left leg cellulitis. He was started on vancomycin and on second day in the hospital he was found to have good improvement in his symptoms with improving cellulitis. He is a daily heroin user and did start to withdraw on hospital day 1, he was given methadone for pain and withdrawal which helped control his symptoms well. On day of discharge he was not withdrawing further. He was discharged with a week of oral antibiotics. He was encouraged to establish care with a PCP. He met with social work to discuss substance treatment options once leaving the hospital. Exam Vital Signs (past 8 hours): Oxygen Delivery Method Room Air Oxygen Flow Rate 0 Narrative Exam Narrative: GEN: chronically ill appearing, no acute distress CARDIOVASCULAR: Regular rate and rhythm without murmurs RESPIRATORY: wheezes bilaterally GASTROINTESTINAL: Abdomen soft, non-tender, nondistended, no organomegaly, normal bowel sounds EXTREMITIES: improving left leg cellulitis, no crepitus or fluctuance BACK: Nontender without deformity or crepitance. No flank tenderness. NEURO: awake and alert, moving all extremities with no deficits SKIN: cellulitis as noted above, scattered track crane on upper and lower extremities PSYCH: cooperative, pleasant Objective Labs Result Diagrams: 05/12/21 04:45 05/12/21 04:45 Labs: Laboratory Results - last 24 hr 05/12/21 05/12/21 05/12/21 01:00 04:45 04:45 WBC 8.3 RBC 4.06 L Hgb 10.6 L Hct 31.9 L MCV 78.5 L MCH 26.2 MCHC 33.3 RDW 15.0 H Plt Count 213 Sodium 136 L Potassium 3.5 Chloride 103 Carbon Dioxide 31 BUN 7 L Creatinine 0.41 L Estimated GFR > 60.0 BUN/Creatinine Ratio 17.1 Glucose 104 Calcium 7.8 L Vancomycin Trough 7.7 L PFSH Medical History Asthma Chronic back pain greater than 3 months duration Closed intertrochanteric fracture of left femur Depression Drug abuse, IV History of CVA (cerebrovascular accident) Surgical History History of hernia repair Family History Father Unknown family medical history Mother No problems noted. Grandmother Myocardial infarction Grandfather No problems noted. Social History household members: significant other Smoking Status: Current some day smoker alcohol intake: current Discharge Plan Discharge Plan Patient Disposition: Home Provider Discharge Comment: Mr. Ramesh came in with a left leg cellulitis. He was given IV antibiotics and began improving. He was given a prescription for 7 more days of antibiotics. He was also in withdrawal from opiates. He did well with methadone. He was given information on substance abuse detoxification options. Discharge orders & Medications Prescriptions: New acetaminophen 325 mg Tablet 650 mg PO Q6HR PRN (Reason: Fever/Mild Pain (1-3)) Qty: 30 RF: 0 ibuprofen 600 mg Tablet 600 mg PO Q6HR PRN (Reason: Fever/Mild Pain (1-3)) Qty: 30 RF: 0 sulfamethoxazole-trimethoprim [Bactrim DS] 800-160 mg tablet 1 tab PO BID Qty: 14 RF: 0 albuterol sulfate 90 mcg/actuation HFA aerosol inhaler 1 inh inhalation QID PRN (Reason: shortness of breath or wheezing) Qty: 6.7 RF: 1 Continued sertraline [Zoloft] 100 mg Tablet 100 mg PO DAILY RF: 0 fluticasone propion-salmeterol 250-50 mcg/dose blister with device 1 inh INHALATION BID Qty: 1 RF: 0 Discontinued albuterol 90 mcg/actuation Aerosol 90 mcg INHALATION PRN PRN (Reason: Wheezing) RF: 0 Medication counseling provided by Pharmacist: Yes Follow up/Referrals: Kenney Joshi MD [Primary Care Provider] - Diet/Activity/Treatments Diet: Diet as Tolerated Visit Report/Discharge Packet Instructions: DI for Cellulitis -- Adult, DI for Substance Use Disorder, How to Use Antibiotics Wisely Discharge Data Primary Care Provider: Kenney Joshi Attending Provider: Haider Paige VTE Deep Vein Thrombosis/Pulmonary Embolism Present on Admission: No MIPS - DC The patient has current or prior documentation of left ventricular ejection fraction (LVEF) less than 40%, or moderate or severely depressed left ventricular systolic function.: No
== END 2021-05-12 11:30 | disposition home or self-care (01) ==
LOC: ED 15:29 → AC 22:38
PROVIDERS: Admitting Provider Internal Medicine; Emergency Provider Emergency Medicine; Family Provider Family Medicine; PCP Family Medicine; Referring Provider Emergency Medicine; Visit Provider Internal Medicine
DX: L03.116 Cellulitis of left lower limb (principal); F11.13 Opioid abuse with withdrawal; J45.909 Unspecified asthma, uncomplicated; Z72.0 Tobacco use; D64.9 Anemia, unspecified; Z20.822 Contact with and (suspected) exposure to COVID-19
CPT/HCPCS: 36592; 71045; 73630; 80048; 80053; 80202; 83605; 85025; 85027; 87040; 87635; 93970; 94640; 94760; 96361; 96365; 96366; 99284; C9803; G0378; J1650; J7613

== ENCOUNTER → 2021-07-28 13:16 | Outpatient (CLI) | payer MEDICARE, MEDICAID, SELFPAY ==
[2021-05-10 16:02] VITALS: BMI 22.9
[2021-07-28 14:06] LABS: COVID19 -Nasal RAPID Negative (Negative)
== END ==
PROVIDERS: Family Provider Family Medicine; PCP Family Medicine; Referring Provider Internal Medicine; Visit Provider Internal Medicine
DX: Z20.822 Contact with and (suspected) exposure to COVID-19 (principal)
CPT/HCPCS: 87635; C9803

== ENCOUNTER → 2021-07-28 13:20 | Outpatient (CLI) | payer MEDICARE, MEDICAID, SELFPAY ==
[2021-05-10 16:02] VITALS: BMI 22.9
--- NOTE | 2021-08-02 08:18 | PM.PFT.1 ---
Pulmonary Function Test Referral & Results Date Patient Seen: 07/28/21 Requesting provider: Isra Garcia Results: The spirometry demonstrates an FVC of 2.65 L which is 56% of predicted. The FEV1 was measured at 1.28 L which is 36% of predicted. The FEV1/FVC ratio was 48 which is 64% of predicted. Following the administration of bronchodilator there was a 45% improvement in FEF 25-75% Lung volumes show an SVC of 2.90 L which is 61% of predicted. The diffusing capacity was measured at 19.49 which is 60% of predicted. No hemoglobin value was provided, so no correction for potential anemia could be made, if appropriate. The maximum voluntary ventilation was reduced Interpretation: This study demonstrates moderately severe obstructive lung disease with only limited evidence of benefit in small airway flow after bronchodilator administration There is also mild restrictive lung disease based on reduction SVC There is also [id number] reduction diffusing capacity suggesting element of disease at the capillary alveolar level Altogether this is consistent with a diagnosis of COPD
== END ==
PROVIDERS: Family Provider Family Medicine; PCP Family Medicine; Referring Provider Internal Medicine; Visit Provider Internal Medicine
DX: J44.9 Chronic obstructive pulmonary disease, unspecified (principal); F17.200 Nicotine dependence, unspecified, uncomplicated; Z20.822 Contact with and (suspected) exposure to COVID-19
CPT/HCPCS: 87635; 94060; 94726; 94729; C9803

== ENCOUNTER 2022-03-13 00:25 | Emergency (ER) | payer OTHER, MEDICAID, SELFPAY ==
[2021-05-10 16:02] VITALS: BMI 22.9
[2022-03-13 00:29] VITALS: PULSE 94; RESP 22; TEMP 37.1; O2SAT 96
[2022-03-13] MEDS: DOXYCYCLINE HYCLATE 100 MG TABLET PO (00:49)
--- NOTE | 2022-03-13 00:52 | ED.SKABFB ---
HPI - Skin/Abscess/Foreign Bdy General Chief complaint: Skin/Abscess/Foreign Body Stated complaint: SORES ON BOTH LEGS Time Seen by Provider: 03/13/22 00:26 Source: patient Mode of arrival: Ambulatory History of Present Illness HPI narrative: 62-year-old male daily smoker and IV drug abuser with heroin presents with a friend and a chief complaint of infected sores on both legs. He denies any systemic findings such as fever, chills nor nausea or vomiting. He has no chest pain or shortness of breath. He states that the sores in his legs have been irritated for about 1 month and he presents today because a friend told him he should have it looked at. He is otherwise well and free of complaint Related Data Home Medications Medication Instructions Recorded Confirmed sertraline 100 mg tablet (Zoloft) 100 mg PO DAILY 05/11/21 05/11/21 Previous Rx's Medication Instructions Recorded acetaminophen 325 mg tablet 650 mg PO Q6HR PRN #30 tab 05/12/21 albuterol sulfate 90 mcg/actuation 1 inh INHALATION QID PRN #6.7 g 05/12/21 aerosol inhaler fluticasone 250 mcg-salmeterol 50 1 inh INHALATION BID #1 ea 05/12/21 mcg/dose blistr powdr for inhalation ibuprofen 600 mg tablet 600 mg PO Q6HR PRN #30 tab 05/12/21 sulfamethoxazole 800 1 tab PO BID #14 tab 05/12/21 mg-trimethoprim 160 mg tablet (Bactrim DS) doxycycline hyclate 100 mg tablet 100 mg PO BID #20 tab 03/13/22 ondansetron 4 mg disintegrating 4 mg PO TID-QID PRN #10 tab 03/13/22 tablet Allergies Allergy/AdvReac Type Severity Reaction Status Date / Time amoxicillin [AMOXICILLIN] Allergy Unknown DOES NOT Verified 05/10/21 11:53 REMEMBER SOMETHING NOT GOOD Penicillins [PENICILLINS] Allergy Unknown CAN'T Verified 05/10/21 11:53 REMEMBER RX Review of Systems Review of Systems Narrative: GENERAL: See HPI HEENT: Denies sinus pain, ear pain, sore throat, difficulty swallowing, dizziness. RESPIRATORY: Denies dyspnea, cough, wheezing, hemoptysis, sputum. CARDIOVASCULAR: Denies chest pain, palpitations, orthopnea, edema, GASTROINTESTINAL: Denies nausea, vomiting, abdominal pain, diarrhea, constipation, melena. : Denies dysuria, frequency, incontinence, hematuria, urinary retention. MUSCULOSKELETAL: denies weakness, joint pain, or bony pain SKIN: See HPI NEUROLOGIC: Denies weakness, headache, numbness, change in speech, confusion, seizures, incoordination. PSYCHIATRIC: No concerning psychosocial issues. 12 point review of systems is negative except for those stated above Patient History Medical History Asthma Chronic back pain greater than 3 months duration Closed intertrochanteric fracture of left femur Depression Drug abuse, IV History of CVA (cerebrovascular accident) Surgical History History of hernia repair Family History Father Unknown family medical history Mother No problems noted. Grandmother Myocardial infarction Grandfather No problems noted. Social History household members: significant other Smoking Status: Current some day smoker alcohol intake: current Smoking Status: Current some day smoker tobacco type: cigarettes alcohol intake frequency: a few times a month Substance Use Type: marijuana, heroin, opiates and IV drugs Exam Narrative Exam Narrative: GENERAL: [62] year old patient appears stated age. Well-developed patient, in no obvious distress, alert and oriented x3, speaking clearly and walking a straight line without stumbling HEAD: Atraumatic. Normocephalic. EYES: Pupils equal round and reactive. Extraocular motions intact. No scleral icterus. No injection or drainage. ENT: Nose without bleeding, purulent drainage. Throat without erythema, tonsillar hypertrophy or exudate. Airway patent. NECK: Trachea midline. Non tender CARDIOVASCULAR: Regular rate and rhythm without murmurs, gallops, or rubs. RESPIRATORY: Clear to auscultation. Breath sounds equal bilaterally. No wheezes, rales, or rhonchi. GASTROINTESTINAL: Abdomen soft, non-tender, nondistended. EXTREMITIES: Bilateral lower extremities with multiple excoriations and surrounding erythema consistent with bacterial superinfection. There is no significant erythema, warmth, drainage or swelling. Sensation and pulses intact distal to the wounds. No medial thigh pain or swelling BACK: Nontender without deformity or crepitance. No flank tenderness. NEURO: AOx3. SKIN: No rash or erythema of visible areas Initial Vital Signs Initial Vital Signs: Vital Signs Temperature 98.7 F 03/13/22 00:29 Pulse Rate 94 H 03/13/22 00:29 Respiratory Rate 22 03/13/22 00:29 Pulse Oximetry 96 03/13/22 00:29 Course Orders Ordered: Discontinued Medications Doxycycline Hyclate (Doxycycline Hyclate 100 Mg Tablet) 100 mg PO NOW ONE Stop: 03/13/22 00:43 Last Admin: 03/13/22 00:49 Dose: 100 mg Documented by: SASKIA Vital Signs Vital signs: Vital Signs - 8 hr 03/13/22 00:29 Temperature 98.7 F Pulse Rate 94 H Respiratory Rate 22 Pulse Oximetry 96 Discharge Plan Departure Patient Disposition: Home Clinical Impression: Bilateral cellulitis of lower leg Instructions: DI for Cellulitis -- Adult Activity Restrictions/Additional Instructions: *You have been diagnosed with [bilateral lower extremity sores with superimposed infection and cellulitis. *What to do: *Please continue to take your regular medications as directed. [ x] New medication prescriptions sent to your pharmacy: [ [facility]] [ ] New medication written as a paper prescription [ ] No new medications given *Please follow up with your primary care provider in 2-3 days, call for an appointment. Let them know you were seen in the Emergency Department and that we ask that you be seen in follow up. We will electronically transmit a record of today's note if your PCP is in our system *If you do not have a primary care provider please contact the [facility] Resource line at [phone]. They will ask some questions about your medical history and help get you set up with a doctor in the community. *Return to Emergency Department if you should have any new, worsening or concerning symptoms, such as [fever greater than 101 F, shaking chills, worsening pain, persistent vomiting or other bothersome symptoms] Prescriptions: New doxycycline hyclate 100 mg tablet 100 mg PO BID Qty: 20 0RF ondansetron 4 mg tablet,disintegrating 4 mg PO TID-QID PRN (Reason: nausea and vomiting) Qty: 10 0RF No Action sertraline [Zoloft] 100 mg Tablet 100 mg PO DAILY 0RF acetaminophen 325 mg Tablet 650 mg PO Q6HR PRN (Reason: Fever/Mild Pain (1-3)) Qty: 30 0RF ibuprofen 600 mg Tablet 600 mg PO Q6HR PRN (Reason: Fever/Mild Pain (1-3)) Qty: 30 0RF sulfamethoxazole-trimethoprim [Bactrim DS] 800-160 mg tablet 1 tab PO BID Qty: 14 0RF albuterol sulfate 90 mcg/actuation HFA aerosol inhaler 1 inh inhalation QID PRN (Reason: shortness of breath or wheezing) Qty: 6.7 1RF fluticasone propion-salmeterol 250-50 mcg/dose blister with device 1 inh INHALATION BID Qty: 1 0RF Referrals: Kenney Joshi MD [Primary Care Provider] -
--- NOTE | 2022-03-19 14:30 | PC.NURSE ---
New prescription written by Dr. Hannon for doxycycline faxed to [facility]. Pt called and states he lost his prescription
--- NOTE | 2022-03-24 15:16 | PC.NURSE ---
Pt called and states he lost his RX for zofran. Zofran 4mg ODT TID-QID #10 no refills called into [facility] with prescriber Dr Garcia.
== END 2022-03-13 00:55 | disposition home or self-care (01) ==
PROVIDERS: Emergency Provider Emergency Medicine; Family Provider Family Medicine; PCP Family Medicine
DX: L03.116 Cellulitis of left lower limb (principal); L03.115 Cellulitis of right lower limb
CPT/HCPCS: 99283

== ENCOUNTER 2022-04-16 21:07 | Emergency (ER) | payer OTHER, MEDICAID, SELFPAY ==
[2021-05-10 16:02] VITALS: BMI 22.9
[2022-04-16 21:28] VITALS: BP 133/73; PULSE 84; RESP 16; TEMP 36.2; O2SAT 96
--- NOTE | 2022-04-16 21:52 | DI.CT.S_ITS ---
P or ROCEDURE: CT CERVICAL SPINE WO CON INDICATIONS: neck pain TECHNIQUE: Noncontrast 3 mm thick sections acquired from the skull base to the T4 level. Sagittal and coronal reformats were then constructed. For radiation dose reduction, the following was used: automated exposure control, adjustment of mA and/or kV according to patient size. COMPARISON: [facility], CT, CT ANGIO NECK, 06/29/2017, 20:25. FINDINGS: Image quality: There is mild motion artifact. Bones: No fractures or subluxation. There is anterolisthesis of C2 on C3 measuring approximately 0.4 cm which is new compared to the prior study. There is minimal retrolisthesis at C4-C5, C5-C6, and C6-C7 which appears slightly increased compared to the prior study. Multilevel moderate to severe facet arthropathy demonstrated throughout the cervical spine. There is also multilevel degenerative disc disease including moderate to severe degeneration at C3-C4. Findings appear similar to slightly increased compared to the prior study.. Visualized superior ribs are intact. Soft tissues: Prevertebral soft tissues are normal in thickness. No paravertebral hematomas. No apical pneumothoraces. There is scarring within the lung apices bilaterally. There is a small amount of dependent mucus within the trachea. IMPRESSION: 1. No fracture or subluxation. 2. New anterolisthesis at C2 and C3 without associated fracture identified. Given the associated moderate to severe facet joint arthropathy, the findings likely represent sequelae of degenerative change. 3. Additional multilevel degenerative changes demonstrated throughout the cervical spine as described. Dictated by: Adolph Hale M.D. on 04/16/2022 at 22:48 Approved by: Adolph Hale M.D. on 04/16/2022 at 22:52
--- NOTE | 2022-04-16 21:52 | DI.CT.S_ITS ---
PROCEDURE: CT HEAD/BRAIN WO CON INDICATIONS: altered, history of stroke TECHNIQUE: Noncontrast 4.5 mm thick angled axial sections acquired from the foramen magnum to the vertex, with coronal and sagittal reformats. For radiation dose reduction, the following was used: automated exposure control, adjustment of mA and/or kV according to patient size. COMPARISON: [facility], CT, HEAD WITHOUT CONTRAST, 10/03/2016, 16:54. FINDINGS: Image quality: Excellent. CSF spaces: Basal cisterns are patent. There is mild cerebral volume loss, with resultant ventricular and sulcal prominence. Prominence of the extra-axial spaces in the posterior fossa along the midline is redemonstrated suggestive of an arachnoid cyst. Brain: No intracranial hemorrhage, mass, or mass effect. There are subcortical, periventricular and deep white matter hypodensities consistent with mild chronic small vessel ischemic changes. The pride-white matter junction appears preserved. There is intracranial internal carotid artery atherosclerosis. Skull and face: Calvarium and visualized facial bones are intact, without suspicious lesions. Sinuses: Visualized sinuses demonstrate mild mucosal thickening in the ethmoid sinuses. Mastoid air cells are clear. IMPRESSION: 1. No acute intracranial abnormality. Dictated by: Adolph Hale M.D. on 04/16/2022 at 22:46 Approved by: Adolph Hale M.D. on 04/16/2022 at 22:48
--- NOTE | 2022-04-16 21:52 | ED.NEUROSD ---
HPI - Neuro Symptoms/Deficit General Chief Complaint: Neuro Symptoms/Deficit Stated Complaint: HAD STROKE HEADACHE HANDS NUMBNESS OF LEGS Time Seen by Provider: 04/16/22 21:51 Mode of arrival: Wheelchair History of Present Illness HPI Narrative: 62-year-old male smoker with known history of IV drug abuse and extensive medical history including prior stroke presents with very vague symptoms and states that he has headache and for this reason he is concerned that maybe he had another stroke. He states his headache is been hurting for quite some time and is without any obvious provocation, palliation or radiation. He denies any blurred vision or trouble with speech. He denies any new focal neurologic findings. He has had no fever. He has been previously seen and evaluated for bilateral lower extremity cellulitis and feels that it may be flaring up again. He states the headache is gradual in onset and generalized in nature. He does not use blood thinners. On Anticoagulants: No Related Data Home Medications Medication Instructions Recorded Confirmed sertraline 100 mg tablet (Zoloft) 100 mg PO DAILY 05/11/21 05/11/21 Previous Rx's Medication Instructions Recorded acetaminophen 325 mg tablet 650 mg PO Q6HR PRN #30 tab 05/12/21 albuterol sulfate 90 mcg/actuation 1 inh INHALATION QID PRN #6.7 g 05/12/21 aerosol inhaler fluticasone 250 mcg-salmeterol 50 1 inh INHALATION BID #1 ea 05/12/21 mcg/dose blistr powdr for inhalation ibuprofen 600 mg tablet 600 mg PO Q6HR PRN #30 tab 05/12/21 sulfamethoxazole 800 1 tab PO BID #14 tab 05/12/21 mg-trimethoprim 160 mg tablet (Bactrim DS) doxycycline hyclate 100 mg tablet 100 mg PO BID #20 tab 03/13/22 ondansetron 4 mg disintegrating 4 mg PO TID-QID PRN #10 tab 03/13/22 tablet doxycycline hyclate 100 mg tablet 100 mg PO BID #20 tab 04/17/22 ondansetron 4 mg disintegrating 4 mg PO TID-QID PRN #10 tab 04/17/22 tablet Allergies Allergy/AdvReac Type Severity Reaction Status Date / Time amoxicillin [AMOXICILLIN] Allergy Unknown DOES NOT Verified 05/10/21 11:53 REMEMBER SOMETHING NOT GOOD Penicillins [PENICILLINS] Allergy Unknown CAN'T Verified 05/10/21 11:53 REMEMBER RX Review of Systems Review of Systems Narrative: GENERAL: See HPI HEENT: Denies sinus pain, ear pain, sore throat, difficulty swallowing, dizziness. RESPIRATORY: Denies dyspnea, cough, wheezing, hemoptysis, sputum. CARDIOVASCULAR: Denies chest pain, palpitations, orthopnea, edema, GASTROINTESTINAL: Denies nausea, vomiting, abdominal pain, diarrhea, constipation, melena. : Denies dysuria, frequency, incontinence, hematuria, urinary retention. MUSCULOSKELETAL: denies weakness, joint pain, or bony pain SKIN: See HPI NEUROLOGIC: See HPI PSYCHIATRIC: No concerning psychosocial issues. 12 point review of systems is negative except for those stated above Hematologic/Lymphatic On Anticoagulants: No Patient History Medical History Asthma Chronic back pain greater than 3 months duration Closed intertrochanteric fracture of left femur Depression Drug abuse, IV History of CVA (cerebrovascular accident) Surgical History History of hernia repair Family History Father Unknown family medical history Mother No problems noted. Grandmother Myocardial infarction Grandfather No problems noted. Social History household members: significant other Smoking Status: Current some day smoker alcohol intake: current Smoking Status: Current some day smoker tobacco type: cigarettes alcohol intake frequency: a few times a month Substance Use Type: marijuana, heroin, opiates and IV drugs Exam Narrative Exam Narrative: GENERAL: [62] year old patient appears older than stated age. Well-developed patient, in mild distress. At neurologic baseline HEAD: Atraumatic. Normocephalic. EYES: Pupils equal round and reactive. Extraocular motions intact. No scleral icterus. No injection or drainage. ENT: Nose without bleeding, purulent drainage. Throat without erythema, tonsillar hypertrophy or exudate. Airway patent. NECK: Trachea midline. Non tender, no stepoffs or crepitance. No pain with axial load CARDIOVASCULAR: Regular rate and rhythm without murmurs, gallops, or rubs. RESPIRATORY: Clear to auscultation. Breath sounds equal bilaterally. No wheezes, rales, or rhonchi. GASTROINTESTINAL: Abdomen soft, non-tender, nondistended. EXTREMITIES: No edema or joint tenderness. BACK: Nontender without deformity or crepitance. No flank tenderness. NEURO: AOx3. CN2-12 grossly in tact. Gait disturbance noted with need for cane, normal for him SKIN: B/L LE with warmth and erythema, minimal swelling, few excoriations, but no drainage. Overall appears better than last time he was seen Initial Vital Signs Initial Vital Signs: Vital Signs Temperature 97.1 F L 04/16/22 21:28 Pulse Rate 84 04/16/22 21:28 Respiratory Rate 16 04/16/22 21:28 Blood Pressure 133/73 04/16/22 21:28 Pulse Oximetry 96 04/16/22 21:28 Course Orders Ordered: Discontinued Medications Sodium Chloride (Normal Saline 0.9%) 1,000 mls @ 1,000 mls/hr IV BOLUS ONE Stop: 04/17/22 01:29 Last Infusion: 04/17/22 03:33 Dose: 0 mls/hr Documented by: Admin: 04/17/22 00:39 Dose: 1,000 mls/hr Documented by: SARITA Vital Signs Vital signs: Vital Signs - 8 hr 04/16/22 21:28 Temperature 97.1 F L Pulse Rate 84 Respiratory Rate 16 Blood Pressure 133/73 Pulse Oximetry 96 MDM - Neuro Symptoms/Deficit Lab Data Result diagrams: 04/16/22 23:00 04/16/22 23:00 Labs: Lab Results 04/16/22 04/16/22 04/16/22 Range/Units 23:00 23:00 23:00 WBC 7.9 (4.5-11.0) X10^3/uL RBC 5.47 (4.5-5.9) X10^6/uL Hgb 11.6 L (13.5-17.5) g/dL Hct 36.2 L (41-53) % MCV 66.1 L (80-100) fL MCH 21.1 L (26-34) PG MCHC 32.0 (30-36) % RDW 19.6 H (11.6-14.8) % Plt Count 267 (150-400) X10^3/uL Neut % (Auto) 64.9 (50-75) % Lymph % (Auto) 24.2 L (25-40) % [place] % (Auto) 8.8 (3-14) % Eos % (Auto) 1.9 L (2-4) % Baso % (Auto) 0.2 (0-2) % Neut # (Auto) 5100 (8804-1416) /uL Lymph # (Auto) 1900 (8475-3998) /uL [place] # (Auto) 700 (0-900) /uL Eos # (Auto) 200 (0-450) /uL Baso # (Auto) 0 (0-100) /uL RBC Morphology Not Reportable Hypochromasia 1+ H Anisocytosis 2+ H Microcytosis 1+ H Sodium 137 (137-145) mmol/L Potassium 4.2 (3.4-5.1) mmol/L Chloride 98 (98-107) mmol/L Carbon Dioxide 32 (22-32) mmol/L BUN 12 (9-20) mg/dL Creatinine 0.53 L (0.66-1.25) mg/dL Estimated GFR > 60 (>60) mL/min BUN/Creatinine Ratio 22.6 H (6-22) Glucose 107 (80-110) mg/dL Calcium 9.0 (8.4-10.2) mg/dL Magnesium 2.1 (1.6-2.3) mg/dL Total Bilirubin 0.6 (0.2-1.3) mg/dL AST 89 H (17-59) IU/L ALT 90 H (<50) IU/L Alkaline Phosphatase 109 (38-126) U/L Total Creatine Kinase 40 L (55-170) U/L CK-MB (CK-2) TNP CK-MB (CK-2) Rel Index TNP Troponin I < 0.012 (0.01-0.034) ng/mL Total Protein 9.0 H (6.3-8.2) g/dL Albumin 4.2 (3.5-5.0) g/dL Globulin 4.8 H (1.7-4.1) g/dL Albumin/Globulin Ratio 0.9 L (1.0-2.8) Ethyl Alcohol ( - 10) mg/dL SARS-CoV-2 (PCR) (Negative) 04/16/22 04/17/22 Range/Units 23:00 00:40 WBC (4.5-11.0) X10^3/uL RBC (4.5-5.9) X10^6/uL Hgb (13.5-17.5) g/dL Hct (41-53) % MCV (80-100) fL MCH (26-34) PG MCHC (30-36) % RDW (11.6-14.8) % Plt Count (150-400) X10^3/uL Neut % (Auto) (50-75) % Lymph % (Auto) (25-40) % [place] % (Auto) (3-14) % Eos % (Auto) (2-4) % Baso % (Auto) (0-2) % Neut # (Auto) (1211-2947) /uL Lymph # (Auto) (2251-6794) /uL [place] # (Auto) (0-900) /uL Eos # (Auto) (0-450) /uL Baso # (Auto) (0-100) /uL RBC Morphology Hypochromasia Anisocytosis Microcytosis Sodium (137-145) mmol/L Potassium (3.4-5.1) mmol/L Chloride (98-107) mmol/L Carbon Dioxide (22-32) mmol/L BUN (9-20) mg/dL Creatinine (0.66-1.25) mg/dL Estimated GFR (>60) mL/min BUN/Creatinine Ratio (6-22) Glucose (80-110) mg/dL Calcium (8.4-10.2) mg/dL Magnesium (1.6-2.3) mg/dL Total Bilirubin (0.2-1.3) mg/dL AST (17-59) IU/L ALT (<50) IU/L Alkaline Phosphatase (38-126) U/L Total Creatine Kinase (55-170) U/L CK-MB (CK-2) CK-MB (CK-2) Rel Index Troponin I (0.01-0.034) ng/mL Total Protein (6.3-8.2) g/dL Albumin (3.5-5.0) g/dL Globulin (1.7-4.1) g/dL Albumin/Globulin Ratio (1.0-2.8) Ethyl Alcohol < 10 ( - 10) mg/dL SARS-CoV-2 (PCR) Negative (Negative) Imaging Data CT scan - head: Radiologist's Impression: Fahad Ramesh??62??M??1960 ? Allergy/Adv: amoxicillin, Penicillins Close Chest X-Ray (Signed) Adolph Hale - 04/17/[address] (Signed) Hale,Adolph - 04/16/[address] (Signed) HaleAdolph - 04/16/22 Vascular Ultrasound (Signed) Call,Matt - 05/10/21 Foot X-Ray (Signed) Call,Matt - 05/10/21 Chest X-Ray (Signed) Call,Matt - 05/10/21 Chest X-Ray (Signed) Warner Cantu - 02/14/21 Hip X-Ray (Signed) Viri Rosenberg - 04/09/19 Telemetry Strips 04/08/19 Telemetry Strips 04/08/19 Chest X-Ray (Signed) Jose Weldon - 04/08/19 Femur X-Ray (Signed) Abhijeet Singh - 04/08/19 Radiology - Historical 01/16/18 Radiology - Historical 01/15/18 Radiology - Historical 10/04/16 Radiology - Historical 10/04/16 Radiology - Historical 10/03/16 Radiology - Historical 10/03/16 Launch?[place] [address] CT Scan Report Signed Patient: Fahad Ramesh MR#: [id number] : 1960 Acct:[id number] Age/Sex: 62 / M Date of Service: 04/16/22 Loc: ED Accession Number: [id number] ?? Procedure: CT head/brain wo con Ordering Provider: Richard Hannon D.O. PROCEDURE:? CT HEAD/BRAIN WO CON ? INDICATIONS:? altered, history of stroke ? TECHNIQUE:? Noncontrast 4.5 mm thick angled axial sections acquired from the foramen magnum to the vertex, with coronal and sagittal reformats.? For radiation dose reduction, the following was used:? automated exposure control, adjustment of mA and/or kV according to patient size.? ? COMPARISON:? [facility], CT, HEAD WITHOUT CONTRAST, 10/03/2016, 16:54. ? FINDINGS:? Image quality:? Excellent.? ? CSF spaces:? Basal cisterns are patent.? There is mild cerebral volume loss, with resultant ventricular and sulcal prominence.? Prominence of the extra-axial spaces in the posterior fossa along the midline is redemonstrated suggestive of an arachnoid cyst.? ? Brain:? No intracranial hemorrhage, mass, or mass effect.? There are subcortical, periventricular and deep white matter hypodensities consistent with mild chronic small vessel ischemic changes.? The pride-white matter junction appears preserved.? There is intracranial internal carotid artery atherosclerosis.? ? Skull and face:? Calvarium and visualized facial bones are intact, without suspicious lesions.? ? Sinuses:? Visualized sinuses demonstrate mild mucosal thickening in the ethmoid sinuses.? Mastoid air cells are clear. ? IMPRESSION:? ? 1. No acute intracranial abnormality.? ? Dictated by: Adolph Hale M.D. on 04/16/2022 at 22:46 ? ? Approved by: Adolph Hale M.D. on 04/16/2022 at 22:48 ? CT - cervical spine: Radiologist's Impression: [place] [address] CT Scan Report Signed Patient: Fahad Ramesh MR#: [id number] : 1960 Acct:[id number] Age/Sex: 62 / M Date of Service: 04/16/22 Loc: ED Accession Number: [id number] ?? Procedure: CT cervical spine wo con Ordering Provider: Richard Hannon D.O. or WINTERURE:? CT CERVICAL SPINE WO CON ? INDICATIONS:? neck pain ? TECHNIQUE:? Noncontrast 3 mm thick sections acquired from the skull base to the T4 level.? Sagittal and coronal reformats were then constructed.? For radiation dose reduction, the following was used:? automated exposure control, adjustment of mA and/or kV according to patient size.? ? COMPARISON:? [facility], CT, CT ANGIO NECK, 06/29/2017, 20:25. ? FINDINGS:? Image quality:? There is mild motion artifact. ? Bones:? No fractures or subluxation.? There is anterolisthesis of C2 on C3 measuring approximately 0.4 cm which is new compared to the prior study.? There is minimal retrolisthesis at C4-C5, C5-C6, and C6-C7 which appears slightly increased compared to the prior study.? Multilevel moderate to severe facet arthropathy demonstrated throughout the cervical spine.? There is also multilevel degenerative disc disease including moderate to severe degeneration at C3-C4.? Findings appear similar to slightly increased compared to the prior study..? Visualized superior ribs are intact.? ? Soft tissues:? Prevertebral soft tissues are normal in thickness.? No paravertebral hematomas.? No apical pneumothoraces.? There is scarring within the lung apices bilaterally.? There is a small amount of dependent mucus within the trachea.? ? IMPRESSION:? ? 1. No fracture or subluxation. ? 2. New anterolisthesis at C2 and C3 without associated fracture identified.? Given the associated moderate to severe facet joint arthropathy, the findings likely represent sequelae of degenerative change. ? 3. Additional multilevel degenerative changes demonstrated throughout the cervical spine as described.? Dictated by: Adolph Hale M.D. on 04/16/2022 at 22:48 ? ? Approved by: Adolph Hale M.D. on 04/16/2022 at 22:52 ? MDM Narrative Medical decision making narrative: Patient is concerned that he had a stroke because he awoke with convulsions a few days ago and has had ongoing generalized headache. No new neurologic symptoms such as vision/speech trouble, balance, or extremity numbness, weakness or tingling Headache considerations include, but not limited to: Subarachnoid hemorrhage, but unlikely as patient denies sudden onset of pain, not worst of life, or neck pain Meningitis considered, but thought unlikely given lack of Brudzinski's, Kernig's sign, altered mental status or fever Giant cell arteritis considered, but thought unlikely given lack of unilateral findings, pain in advent, vision change HTN Emergency considered, but thought unlikely given normal vitals Other serious diagnoses considered unlikely given lack of red flag findings such as sudden onset, increasing frequency, immunocompromise, systemic signs (fever, chills, stiff neck, or rash), focal neurologic findings, trauma, blood thinners, etc. Patient feels significant improvement after above-stated therapies and care communicates at his baseline and ambulates at his baseline. He has a friend at the bedside who will verify this is his baseline, return precautions discussed and questions answered to his apparent satisfaction Discharge Plan Departure Patient Disposition: Home Clinical Impression: Bilateral cellulitis of lower leg Instructions: DI for Cellulitis -- Adult Activity Restrictions/Additional Instructions: *You have been diagnosed with [acute on chronic cellulitis of bilateral lower extremities *What to do: *Please continue to take your regular medications as directed. [ x] New medication prescriptions sent to your pharmacy: [ [facility]] [ ] New medication written as a paper prescription [ ] No new medications given *Please follow up with your primary care provider in 2-3 days, call for an appointment. Let them know you were seen in the Emergency Department and that we ask that you be seen in follow up. We will electronically transmit a record of today's note if your PCP is in our system *If you do not have a primary care provider please contact the [facility] Resource line at [phone]. They will ask some questions about your medical history and help get you set up with a doctor in the community. *Return to Emergency Department if you should have any new, worsening or concerning symptoms, such as [fever greater than 101 F, shaking chills, worsening pain, persistent vomiting or other bothersome symptoms] Prescriptions: New ondansetron 4 mg tablet,disintegrating 4 mg PO TID-QID PRN (Reason: nausea and vomiting) Qty: 10 0RF doxycycline hyclate 100 mg tablet 100 mg PO BID Qty: 20 0RF No Action doxycycline hyclate 100 mg tablet 100 mg PO BID Qty: 20 0RF ondansetron 4 mg tablet,disintegrating 4 mg PO TID-QID PRN (Reason: nausea and vomiting) Qty: 10 0RF sertraline [Zoloft] 100 mg Tablet 100 mg PO DAILY 0RF acetaminophen 325 mg Tablet 650 mg PO Q6HR PRN (Reason: Fever/Mild Pain (1-3)) Qty: 30 0RF ibuprofen 600 mg Tablet 600 mg PO Q6HR PRN (Reason: Fever/Mild Pain (1-3)) Qty: 30 0RF sulfamethoxazole-trimethoprim [Bactrim DS] 800-160 mg tablet 1 tab PO BID Qty: 14 0RF albuterol sulfate 90 mcg/actuation HFA aerosol inhaler 1 inh inhalation QID PRN (Reason: shortness of breath or wheezing) Qty: 6.7 1RF fluticasone propion-salmeterol 250-50 mcg/dose blister with device 1 inh INHALATION BID Qty: 1 0RF Referrals: Kenney Joshi MD [Primary Care Provider] -
--- NOTE | 2022-04-16 23:01 | PC.NURSE ---
Patient reports a stroke about 5 years ago with right side being affected. Reports 2-3 days of bilateral hands and arms numbness, torso feels strange, bilateral leg weakness, and word finding difficulty. Patient also reports a 25 year heroin hx and muscled heroin this morning but is unsure where he did it, has a flat affect when communicating. Patient is globally weak in both arms and both legs and had difficulty ambulating from wheelchair to bed.
--- NOTE | 2022-04-17 00:31 | DI.RAD.S_ITS ---
PROCEDURE: XR CHEST 1V INDICATIONS: weakness TECHNIQUE: One view of the chest was acquired. COMPARISON: [facility], CR, XR CHEST 1V, 05/10/2021, 12:53. FINDINGS: Surgical changes and devices: None. Lungs and pleura: Lungs are clear. There is hyperinflation of the lungs with flattening of the hemidiaphragms suggestive of COPD. No pleural effusions or pneumothorax. Mediastinum: Mediastinal contours appear normal. Heart size is normal. Bones and chest wall: No suspicious bony lesions. Overlying soft tissues appear unremarkable. IMPRESSION: 1. No acute cardiopulmonary disease. 2. Findings suggestive of COPD. Dictated by: Adolph Hale M.D. on 04/17/2022 at 0:49 Approved by: Adolph Hale M.D. on 04/17/2022 at 0:51
[2022-04-17] MEDS: SODIUM CHLORIDE 0.9% 1,000 ML 1000 ML IV (00:39)
[2022-04-17 01:04] LABS: COVID19 -Nasal RAPID Negative (Negative)
[2022-04-17 01:16] LABS: Basophils Absolute Auto 0 /uL (0-100); Basophils Percent Auto 0.2 % (0-2); Eosinophils Absolute Auto 200 /uL (0-450); Eosinophils Percent Auto 1.9 % (2-4); Hematocrit 36.2 % (41-53); Hemoglobin 11.6 g/dL (13.5-17.5); Lymphocytes Absolute Auto 1900 /uL (1100-4500); Lymphocytes Percent Auto 24.2 % (25-40); Mean Corpuscular Hemoglobin 21.1 PG (26-34); Mean Corpuscular Volume 66.1 fL (80-100); Monocytes Absolute Auto 700 /uL (0-900); Monocytes Percent Auto 8.8 % (3-14); Neutrophils Absolute Auto 5100 /uL (1500-7000); Neutrophils Percent Auto 64.9 % (50-75); Platelet Count 267 X10^3/uL (150-400); Red Blood Cell Count 5.47 X10^6/uL (4.5-5.9); Red Cell Distribution Width 19.6 % (11.6-14.8); White Blood Cell Count 7.9 X10^3/uL (4.5-11.0)
[2022-04-17 01:21] LABS: Alanine Aminotransferase 90 IU/L (<50); Albumin 4.2 g/dL (3.5-5.0); Albumin Globulin Ratio 0.9 (1.0-2.8); Alkaline Phosphatase 109 U/L (38-126); Aspartate Aminotransferase 89 IU/L (17-59); BUN Creatinine Ratio 22.6 (6-22); Bilirubin Total 0.6 mg/dL (0.2-1.3); Blood Urea Nitrogen 12 mg/dL (9-20); Carbon Dioxide 32 mmol/L (22-32); Chloride 98 mmol/L (98-107); Creatine Kinase 40 U/L (55-170); Estimated Glomerular Filt Rate > 60 mL/min (>60); Globulin 4.8 g/dL (1.7-4.1); Glucose 107 mg/dL (80-110); HEMOLYSIS < 15 (0-50); Magnesium 2.1 mg/dL (1.6-2.3); Potassium 4.2 mmol/L (3.4-5.1); Sodium 137 mmol/L (137-145)
[2022-04-17 01:23] LABS: Ethanol (ETOH) < 10 mg/dL
[2022-04-17 01:26] LABS: Add Manual Diff / Slide Review SLIDE REVIEW
[2022-04-17 01:32] LABS: Troponin I < 0.012 ng/mL (0.01-0.034)
[2022-04-17 06:49] VITALS: PULSE 82; RESP 15; TEMP 36.3; O2SAT 98
[2022-04-17 07:09] LABS: Anisocytosis 2+; Hypochromasia 1+; Microcytosis 1+
== END 2022-04-17 06:10 | disposition home or self-care (01) ==
PROVIDERS: Emergency Provider Emergency Medicine; Family Provider Family Medicine; PCP Family Medicine
DX: L03.116 Cellulitis of left lower limb (principal); L03.115 Cellulitis of right lower limb; M54.2 Cervicalgia; R51.9 Headache, unspecified; R41.82 Altered mental status, unspecified; Z20.822 Contact with and (suspected) exposure to COVID-19
CPT/HCPCS: 36415; 70450; 71045; 72125; 80053; 80320; 82550; 83735; 84484; 85025; 87635; 99284; C9803

== ENCOUNTER 2022-04-30 17:03 | Inpatient (IN) | payer OTHER, MEDICAID, SELFPAY ==
[2021-05-10 16:02] VITALS: BMI 22.9
[2022-04-30] VITALS (16 sets, daily range): BP systolic 134–139; BP diastolic 71–74; PULSE 77–94; RESP 11–29; TEMP 36.6; O2SAT 91–96; BMI 21.5
--- NOTE | 2022-04-30 17:17 | DI.CT.S_ITS ---
PROCEDURE: CT HEAD/BRAIN WO CON INDICATIONS: right side flaccid x 10 days. TECHNIQUE: Noncontrast 4.5 mm thick angled axial sections acquired from the foramen magnum to the vertex, with coronal and sagittal reformats. For radiation dose reduction, the following was used: automated exposure control, adjustment of mA and/or kV according to patient size. COMPARISON: [facility], CT, CT HEAD/BRAIN WO CON, 04/16/2022, 21:55. FINDINGS: No acute intracranial hemorrhage, abnormal extra-axial fluid collection, mass effect, or midline shift. Normal ventricular caliber and position. Patent basilar cisterns. Thomas-white matter differentiation is maintained without evidence of recent ischemia. Mild chronic microvascular ischemic change. Mild global cerebral volume loss. No gross orbital abnormality. Clear paranasal sinuses and mastoid air cells. IMPRESSION: No acute intracranial finding. Dictated by: Ash Bertrand M.D. on 04/30/2022 at 17:59 Approved by: Ash Bertrand M.D. on 04/30/2022 at 18:00
--- NOTE | 2022-04-30 17:18 | DI.CT.S_ITS ---
PROCEDURE: CT ANGIO HEAD AND NECK INDICATIONS: right side flaccid x 10 days. TECHNIQUE: Pre-contrast 4.5 mm thick sections acquired from the foramen magnum to the vertex. After the administration of intravenous contrast, 1 mm thick sections acquired from the aortic arch through the [place] of [place]. Post-contrast 4.5 mm thick sections then re-acquired from the foramen magnum to the vertex. 3-dimensional pvpwwcm-uwxfoqoeo-cwutaseiyc (MIP) and/or volume rendering reformats were acquired of the central intracranial vasculature and neck separately. For radiation dose reduction, the following was used: automated exposure control, adjustment of mA and/or kV according to patient size. COMPARISON: None. FINDINGS: Image quality: Excellent. BRAIN: CSF spaces: Ventricles are normal in size and shape. Basal cisterns are patent. No extra-axial fluid collections. Brain: No midline shift. No intracranial bleeds or masses. Thomas-white matter interface appears intact. Skull and face: Calvarium and facial bones appear intact, without suspicious lesions. Orbits appear normal. Sinuses: Mucosal thickening in the ethmoid air cells and bilateral maxillary sinus. HEAD CT ANGIOGRAPHY: Anterior circulation: Intracranial internal carotid arteries are normal in size and flow. The flow within the paired anterior cerebral arteries is normal and symmetric. The flow within the middle cerebral arteries is normal and symmetric. The anterior communicating artery is seen. No aneurysms are seen. Posterior circulation: Visualized portions of the vertebral arteries demonstrate normal caliber, and join to form a normal appearing basilar artery. Flow within the posterior cerebral arteries is normal and symmetric. No aneurysms are seen. NECK CT ANGIOGRAPHY: Carotid system: The great vessels demonstrate a conventional anatomy as they arise from the aortic arch. The origins of the common carotid arteries appear patent. The common carotid arteries demonstrate normal caliber and courses. The bifurcation regions are both widely patent. The internal carotid arteries demonstrate normal calibers and courses. Posterior circulation: The origins of the vertebral arteries both appear widely patent. The more superior extracranial portions of both vertebral arteries also demonstrate normal courses and calibers. They join to form a normal appearing basilar artery. Soft tissues: Visualized neck soft tissues demonstrate no suspicious abnormalities. Bones: No suspicious bony lesions. Visualized cervical spine appears normally aligned. IMPRESSION: No hemodynamically significant stenosis of the major intracranial or extracranial arterial circulation. No significant change from preliminary report. Any quantitative measurements of stenosis were performed using NASCET criteria. Dictated by: Ash Bertrand M.D. on 05/01/2022 at 8:21 Approved by: Ash Bertrand M.D. on 05/01/2022 at 8:23
--- NOTE | 2022-04-30 17:23 | DI.RAD.S_ITS ---
PROCEDURE: XR CHEST 1V INDICATIONS: Cough TECHNIQUE: One view of the chest was acquired. COMPARISON: [facility], CR, XR CHEST 1V, 04/17/2022, 0:35. FINDINGS: Surgical changes and devices: None. Lungs and pleura: Lungs are clear. No pleural effusions or pneumothorax. Mediastinum: Mediastinal contours appear normal. Heart size is normal. Bones and chest wall: No suspicious bony lesions. Overlying soft tissues appear unremarkable. IMPRESSION: No acute cardiopulmonary process demonstrated radiographically. Dictated by: Ash Bertrand M.D. on 04/30/2022 at 17:51 Approved by: Ash Bertrand M.D. on 04/30/2022 at 17:53
--- NOTE | 2022-04-30 17:59 | PC.NURSE ---
Patient IV drug user and has severe scarring on bilateral upper extremities. Difficult IV start with multiple attempts. Patient down to CT scan.
--- NOTE | 2022-04-30 18:07 | ED.NEUROSD ---
HPI - Neuro Symptoms/Deficit General Chief Complaint: Weakness Stated Complaint: THINKS STORKE UNABLE TO USE RIGHT SIDE Time Seen by Provider: 04/30/22 17:17 Source: patient Mode of arrival: Ambulatory History of Present Illness HPI Narrative: [age] year smoker and IV drug abuser with prior stroke presents with a chief complaint of neurologic symptoms that have been present for somewhere between 4 in 10 days. He has a very poor historian does not pain a very clear picture. He states that he has had a stroke in the past which is known and residual symptoms include right upper and lower extremity weakness, he routinely walks with a cane. He states that over the past week, (as stated above 4-10 days) he has had numbness, tingling and now weakness in his left upper and lower extremity. He denies any blurred vision or trouble with speech. He states that he has had multiple falls as a consequence of this weakness. He does not have a doctor in currently does not take any medications. He denies any runny nose, sore throat or cough. He has no chest pain or shortness of breath. Denies vomiting but is persistently nauseated Related Data Home Medications Medication Instructions Recorded Confirmed sertraline 100 mg tablet (Zoloft) 100 mg PO DAILY 05/11/21 05/11/21 Previous Rx's Medication Instructions Recorded acetaminophen 325 mg tablet 650 mg PO Q6HR PRN #30 tab 05/12/21 albuterol sulfate 90 mcg/actuation 1 inh INHALATION QID PRN #6.7 g 05/12/21 aerosol inhaler fluticasone 250 mcg-salmeterol 50 1 inh INHALATION BID #1 ea 05/12/21 mcg/dose blistr powdr for inhalation ibuprofen 600 mg tablet 600 mg PO Q6HR PRN #30 tab 05/12/21 sulfamethoxazole 800 1 tab PO BID #14 tab 05/12/21 mg-trimethoprim 160 mg tablet (Bactrim DS) doxycycline hyclate 100 mg tablet 100 mg PO BID #20 tab 03/13/22 ondansetron 4 mg disintegrating 4 mg PO TID-QID PRN #10 tab 03/13/22 tablet doxycycline hyclate 100 mg tablet 100 mg PO BID #20 tab 04/17/22 ondansetron 4 mg disintegrating 4 mg PO TID-QID PRN #10 tab 04/17/22 tablet Allergies Allergy/AdvReac Type Severity Reaction Status Date / Time amoxicillin [AMOXICILLIN] Allergy Unknown DOES NOT Verified 04/30/22 17:34 REMEMBER SOMETHING NOT GOOD Penicillins [PENICILLINS] Allergy Unknown CAN'T Verified 04/30/22 17:34 REMEMBER RX Review of Systems Review of Systems Narrative: GENERAL: See HPI HEENT: Denies sinus pain, ear pain, sore throat, difficulty swallowing, dizziness. RESPIRATORY: Denies dyspnea, cough, wheezing, hemoptysis, sputum. CARDIOVASCULAR: Denies chest pain, palpitations, orthopnea, edema, GASTROINTESTINAL: See HPI : Denies dysuria, frequency, incontinence, hematuria, urinary retention. MUSCULOSKELETAL: See HPI SKIN: Denies rash, skin lesions, or other NEUROLOGIC: See HPI PSYCHIATRIC: No concerning psychosocial issues. 12 point review of systems is negative except for those stated above Patient History Medical History Asthma Chronic back pain greater than 3 months duration Closed intertrochanteric fracture of left femur Depression Drug abuse, IV History of CVA (cerebrovascular accident) Surgical History History of hernia repair Family History Father Unknown family medical history Mother No problems noted. Grandmother Myocardial infarction Grandfather No problems noted. Social History household members: significant other Smoking Status: Current some day smoker alcohol intake: current Smoking Status: Current some day smoker tobacco type: cigarettes alcohol intake frequency: a few times a month Substance Use Type: marijuana, heroin, opiates and IV drugs Exam Narrative Exam Narrative: GENERAL: [62] year old patient appears older than stated age. A bit disheveled, sleeping but easily arousable, very poor historian and confused HEAD: Atraumatic. Normocephalic. EYES: Pupils equal round and reactive. Extraocular motions intact. No scleral icterus. No injection or drainage. ENT: Nose without bleeding, purulent drainage. Throat without erythema, tonsillar hypertrophy or exudate. Airway patent. NECK: Trachea midline. Non tender CARDIOVASCULAR: Regular rate and rhythm without murmurs, gallops, or rubs. RESPIRATORY: Clear to auscultation. Breath sounds equal bilaterally. No wheezes, rales, or rhonchi. GASTROINTESTINAL: Abdomen soft, non-tender, nondistended. EXTREMITIES: No edema or joint tenderness. BACK: Nontender without deformity or crepitance. No flank tenderness. NEURO: AOx3. Cranial nerves 2-12 grossly intact SKIN: Multiple scabbed excoriations of arms and legs, bilateral lower extremities with evidence of chronic venous stasis and discoloration, significantly improved compared to prior visits. Initial Vital Signs Initial Vital Signs: Vital Signs Pulse Rate 89 04/30/22 17:17 Blood Pressure 139/71 04/30/22 17:17 Pulse Oximetry 91 04/30/22 17:17 Scores NIH Stroke Scale Level of Conciousness: Alert, keenly responsive Ask month/age: Answers both questions correctly. Open/close eyes, close hand: Performs both tasks correctly Best gaze horizontal: Normal Visual trotter: No visual loss Facial palsy: Normal symetrical movement Left arm drift: Drifts down, not to bed Right arm drift: Some effort against gravity, cannot maintain, drifts down to bed Left leg drift: Drifts down, not to bed Right leg drift: Drifts down, not to bed Limb ataxia: Absent Sensory on face/arms/legs: Mild to moderate sensory loss, can tell touch Best language: No aphasia, normal Dysarthria: Normal Extinction or inattention: No abnormality Total NIH Stroke scale score: 6 Course Orders Ordered: ED Orders 05/01/22 XR chest for PICC 1V Stat 05/01/22 01:16 Consult After Hours PICC Line RN Stat 05/01/22 01:55 COVID19 -Nasal RAPID/Pre-Proc Stat Sertraline HCl (Sertraline 50 Mg Tablet) 100 mg PO DAILY ERIN Discontinued Medications Clonidine HCl (Clonidine Tts 0.1 Mg Patch) 0.1 mg TOP NOW ONE Stop: 04/30/22 23:40 Last Admin: 04/30/22 23:54 Dose: 0.1 mg Documented by: IRA Sodium Chloride (Normal Saline 0.9%) 1,000 mls @ 150 mls/hr IV CONT ERIN Last Infusion: 05/01/22 03:28 Dose: 0 mls/hr Documented by: Admin: 04/30/22 22:20 Dose: 150 mls/hr Documented by: Infusion: 04/30/22 22:19 Dose: 0 mls/hr Documented by: [email or web address] Admin: 04/30/22 18:55 Dose: 150 mls/hr Documented by: FAM Vital Signs Vital signs: Vital Signs - 8 hr 04/30/22 21:00 04/30/22 21:30 04/30/22 22:00 Pulse Rate 82 89 94 H Respiratory Rate 22 11 L 26 H Pulse Oximetry 92 94 96 04/30/22 22:30 04/30/22 23:00 04/30/22 23:30 Pulse Rate 90 92 H 86 Respiratory Rate 27 H 29 H 15 Pulse Oximetry 96 92 05/01/22 00:00 05/01/22 00:30 05/01/22 01:00 Pulse Rate 97 H 96 H 88 Respiratory Rate 26 H 32 H 15 Pulse Oximetry 94 97 100 05/01/22 01:30 05/01/22 02:00 05/01/22 02:30 Pulse Rate 88 84 83 Respiratory Rate 20 21 11 L Pulse Oximetry 100 100 100 05/01/22 03:00 Pulse Rate 84 Respiratory Rate 16 Pulse Oximetry 95 MDM - Neuro Symptoms/Deficit Lab Data Result diagrams: 04/30/22 18:50 04/30/22 18:50 Labs: Lab Results 04/30/22 04/30/22 04/30/22 Range/Units 18:50 18:50 18:50 WBC 9.7 (4.5-11.0) X10^3/uL RBC 5.37 (4.5-5.9) X10^6/uL Hgb 11.5 L (13.5-17.5) g/dL Hct 35.8 L (41-53) % MCV 66.6 L (80-100) fL MCH 21.5 L (26-34) PG MCHC 32.3 (30-36) % RDW 19.9 H (11.6-14.8) % Plt Count 310 (150-400) X10^3/uL Neut % (Auto) 74.8 (50-75) % Lymph % (Auto) 15.0 L (25-40) % [place] % (Auto) 9.0 (3-14) % Eos % (Auto) 1.0 L (2-4) % Baso % (Auto) 0.2 (0-2) % Neut # (Auto) 7300 H (9051-8508) /uL Lymph # (Auto) 1500 (3421-6845) /uL [place] # (Auto) 900 (0-900) /uL Eos # (Auto) 100 (0-450) /uL Baso # (Auto) 0 (0-100) /uL RBC Morphology See below Microcytosis 2+ H PT 12.6 (10.1-12.7) SECONDS INR 1.1 (0.9-1.3) APTT 33 (26.4-36.2) SECONDS Sodium 137 (137-145) mmol/L Potassium 4.4 (3.4-5.1) mmol/L Chloride 99 (98-107) mmol/L Carbon Dioxide 31 (22-32) mmol/L BUN 15 (9-20) mg/dL Creatinine 0.54 L (0.66-1.25) mg/dL Estimated GFR > 60 (>60) mL/min BUN/Creatinine Ratio 27.8 H (6-22) Glucose 124 H (80-110) mg/dL Calcium 9.1 (8.4-10.2) mg/dL Total Creatine Kinase 52 L (55-170) U/L CK-MB (CK-2) TNP CK-MB (CK-2) Rel Index TNP Troponin I < 0.012 (0.01-0.034) ng/mL U Opiates 300ng/mL cut (Negative) Ur Oxycodone Screen (Negative) Urine Methadone Screen (Negative) Ur Barbiturates Screen (Negative) U Tricyclic Antidepress (Negative) Ur Phencyclidine Scrn (Negative) Ur Amphetamines Screen (Negative) U Methamphetamines Scrn (Negative) Ur MDMA Scrn (Ecstasy) (Negative) U Benzodiazepines Scrn (Negative) Urine Cocaine Screen (Negative) U Marijuana (THC) Screen (Negative) SARS-CoV-2 (PCR) (Negative) 05/01/22 05/01/22 Range/Units 01:55 03:20 WBC (4.5-11.0) X10^3/uL RBC (4.5-5.9) X10^6/uL Hgb (13.5-17.5) g/dL Hct (41-53) % MCV (80-100) fL MCH (26-34) PG MCHC (30-36) % RDW (11.6-14.8) % Plt Count (150-400) X10^3/uL Neut % (Auto) (50-75) % Lymph % (Auto) (25-40) % [place] % (Auto) (3-14) % Eos % (Auto) (2-4) % Baso % (Auto) (0-2) % Neut # (Auto) (4749-9939) /uL Lymph # (Auto) (3888-9368) /uL [place] # (Auto) (0-900) /uL Eos # (Auto) (0-450) /uL Baso # (Auto) (0-100) /uL RBC Morphology Microcytosis PT (10.1-12.7) SECONDS INR (0.9-1.3) APTT (26.4-36.2) SECONDS Sodium (137-145) mmol/L Potassium (3.4-5.1) mmol/L Chloride (98-107) mmol/L Carbon Dioxide (22-32) mmol/L BUN (9-20) mg/dL Creatinine (0.66-1.25) mg/dL Estimated GFR (>60) mL/min BUN/Creatinine Ratio (6-22) Glucose (80-110) mg/dL Calcium (8.4-10.2) mg/dL Total Creatine Kinase (55-170) U/L CK-MB (CK-2) CK-MB (CK-2) Rel Index Troponin I (0.01-0.034) ng/mL U Opiates 300ng/mL cut Positive H (Negative) Ur Oxycodone Screen Negative (Negative) Urine Methadone Screen Negative (Negative) Ur Barbiturates Screen Negative (Negative) U Tricyclic Antidepress Negative (Negative) Ur Phencyclidine Scrn Negative (Negative) Ur Amphetamines Screen Positive H (Negative) U Methamphetamines Scrn Positive H (Negative) Ur MDMA Scrn (Ecstasy) Negative (Negative) U Benzodiazepines Scrn Negative (Negative) Urine Cocaine Screen Negative (Negative) U Marijuana (THC) Screen Negative (Negative) SARS-CoV-2 (PCR) Negative (Negative) Urine Dip Bedside Urine Glucose Negative Bedside Urine Bilirubin - Negative Bedside Urine Ketone - Negative Urine Specific [place] 1.025 Bedside Urine Occult Blood +/- Bedside Urine pH 6 Bedside Urine Protein - Negative Bedside Urine Urobilinogen +/- 1mg Bedside Urine Nitrite - Negative Bedside Urine Leukocytes - Negative Esterase Imaging Data CT scan - head: Radiologist's Impression: NAP CTA - brain/neck: Radiologist's Impression: No large vessel occlusion, dissection her obvious aneurysm. No critical stenosis Discharge Plan Departure Patient Disposition: Admitted As Inpatient Admit Date/Time: 05/01/22 04:28 Admit Provider: Mica Singh
[2022-04-30 18:55] LABS: Add Manual Diff / Slide Review NO; Basophils Absolute Auto 0 /uL (0-100); Basophils Percent Auto 0.2 % (0-2); Eosinophils Absolute Auto 100 /uL (0-450); Hematocrit 35.8 % (41-53); Hemoglobin 11.5 g/dL (13.5-17.5); Lymphocytes Absolute Auto 1500 /uL (1100-4500); Mean Corpuscular HGB Conc 32.3 % (30-36); Mean Corpuscular Hemoglobin 21.5 PG (26-34); Mean Corpuscular Volume 66.6 fL (80-100); Monocytes Absolute Auto 900 /uL (0-900); Neutrophils Absolute Auto 7300 /uL (1500-7000); Neutrophils Percent Auto 74.8 % (50-75); Platelet Count 310 X10^3/uL (150-400); Red Blood Cell Count 5.37 X10^6/uL (4.5-5.9); Red Cell Distribution Width 19.9 % (11.6-14.8); White Blood Cell Count 9.7 X10^3/uL (4.5-11.0)
[2022-04-30] MEDS: SODIUM CHLORIDE 0.9% 1,000 ML 150 ML IV ×2 (18:55→22:20)
[2022-04-30 19:02] LABS: INR 1.1 (0.9-1.3); Prothrombin Time 12.6 SECONDS (10.1-12.7)
[2022-04-30 19:04] LABS: PTT Partial Thromboplastin Tim 33 SECONDS (26.4-36.2)
[2022-04-30 19:13] LABS: Microcytosis 2+
[2022-04-30 19:17] LABS: Troponin I < 0.012 ng/mL (0.01-0.034)
[2022-04-30 19:19] LABS: BUN Creatinine Ratio 27.8 (6-22); Blood Urea Nitrogen 15 mg/dL (9-20); Calcium 9.1 mg/dL (8.4-10.2); Carbon Dioxide 31 mmol/L (22-32); Chloride 99 mmol/L (98-107); Creatine Kinase 52 U/L (55-170); Estimated Glomerular Filt Rate > 60 mL/min (>60); Glucose 124 mg/dL (80-110); HEMOLYSIS 15 (0-50); Potassium 4.4 mmol/L (3.4-5.1); Sodium 137 mmol/L (137-145)
[2022-04-30] MEDS: cloNIDine TTS 0.1 MG PATCH TOP (23:54)
[2022-05-01] VITALS (12 sets, daily range): BP systolic 130–141; BP diastolic 71–80; PULSE 80–97; RESP 11–32; TEMP 36.3–36.9; O2SAT 91–100; BMI 20.2
--- NOTE | 2022-05-01 | DI.RAD.S_ITS ---
PROCEDURE: XR CHEST FOR PICC 1V INDICATIONS: PICC LINE COMPARISON: [facility], , XR CHEST 1V, 04/30/2022, 17:35. FINDINGS: PICC was placed by the intravenous therapy team from the right side. Fluoroscopic spot film demonstrates the tip of PICC projecting to the area of SVC. IMPRESSION: Tip of PICC projects to the area of SVC and is in satisfactory position. No discrepancies. Dictated by: Victor M Espinosa M.D. on 05/01/2022 at 8:45 Approved by: Victor M Espinosa M.D. on 05/01/2022 at 8:45
[2022-05-01 02:14] LABS: COVID19 -Nasal RAPID Negative (Negative)
--- NOTE | 2022-05-01 03:06 | PC.NURSE ---
PICC line placed by PICC line nurse
[2022-05-01 03:36] LABS: UR Morphine/Opiate cutoff 300 Positive (Negative); Ur Creatinine 20 (Normal); Ur Specific Gravity 1.025 (Normal); Urine Amphetamines Positive (Negative); Urine Barbiturates Negative (Negative); Urine Benzodiazepines Negative (Negative); Urine Cocaine Negative (Negative); Urine MDMA Negative (Negative); Urine Methadone Negative (Negative); Urine Methamphetamines Positive (Negative); Urine Oxycodone Negative (Negative); Urine Phencyclidine Negative (Negative); Urine Tetrahydrocannabinol Negative (Negative); Urine Tricyclic Antidepressant Negative (Negative); Urine pH 7 (Normal)
--- NOTE | 2022-05-01 04:34 | P.HP_ITS ---
History of Present Illness History of Present Illness Date Patient Seen: 05/01/22 Time Patient Seen: 04:34 Chief complaint: Suspected right sided CVA Narrative: Fahad Ramesh is a 62 y.o. male current smoker and IV drug user, history of a prior right sided CVA in 2016 and resident of [facility] presented to the ED with a week plus complaint of weakness and multiple falls. Patient is very lethargic and unable to provide a history, speaks in whispered voice and difficult to understand. Per the ED provider, he normally walks with a cane and over the past week or two, has had numbness, tingling and weakness in his left upper and lower extremities. He was able to state to me that he did not have any shortness of breath or chest pain. CT of the head was negative for any acute intercrainal findings, CTA stated as normal. Patient is afebrile, normotensive, HR 84, RR 16, oxygen saturation of 95% on room air, he weighs 68 kilograms w/a BMI of 22.9.CBC is unremarkable, glucose 127, urine toxicology is positive for opiates, amphetamine, and methamphetamine. Urine POC was negative for a UTI. COVID-19 PCR is negative. Patient History Medical History (Updated 05/01/22 @ 05:11 by JONATHAN Sampson) Asthma Chronic back pain greater than 3 months duration Closed intertrochanteric fracture of left femur Depression Drug abuse, IV History of CVA (cerebrovascular accident) Surgical History History of hernia repair Family & Social History Family History Father Unknown family medical history Mother No problems noted. Grandmother Myocardial infarction Grandfather No problems noted. Social History: household members significant other Safety & Behavioral: Feels Safe in Current Yes Environment Been Physically Hurt or No Threatened By a Person Tobacco & Substance use: Tobacco type cigarettes,cannabis/marijuana Smoking Status Current some day smoker alcohol intake current alcohol intake frequency a few times a month Substance Use Type marijuana,opiates,IV drugs,heroin Meds Home Medications and Allergies Home Medications Medication Instructions Recorded Confirmed Type sertraline 100 mg tablet (Zoloft) 100 mg PO DAILY 06/17/21 06/17/21 History acetaminophen 325 mg tablet 650 mg PO Q6HR PRN #30 tab 05/12/21 Rx albuterol sulfate 90 mcg/actuation 1 inh INHALATION QID PRN #6.7 g 05/12/21 Rx aerosol inhaler fluticasone 250 mcg-salmeterol 50 1 inh INHALATION BID #1 ea 05/12/21 Rx mcg/dose blistr powdr for inhalation ibuprofen 600 mg tablet 600 mg PO Q6HR PRN #30 tab 05/12/21 Rx sulfamethoxazole 800 1 tab PO BID #14 tab 05/12/21 Rx mg-trimethoprim 160 mg tablet (Bactrim DS) doxycycline hyclate 100 mg tablet 100 mg PO BID #20 tab 03/13/22 Rx ondansetron 4 mg disintegrating 4 mg PO TID-QID PRN #10 tab 03/13/22 Rx tablet doxycycline hyclate 100 mg tablet 100 mg PO BID #20 tab 04/17/22 Rx ondansetron 4 mg disintegrating 4 mg PO TID-QID PRN #10 tab 04/17/22 Rx tablet Allergies Allergy/AdvReac Type Severity Reaction Status Date / Time amoxicillin [AMOXICILLIN] Allergy Unknown DOES NOT Verified 04/30/22 17:34 REMEMBER SOMETHING NOT GOOD Penicillins [PENICILLINS] Allergy Unknown CAN'T Verified 04/30/22 17:34 REMEMBER RX Review of Systems Review of Systems ROS: Yes unobtainable due to mental status Exam Vital Signs (past 8 hours): - 04/30/22 21:00 04/30/22 21:30 04/30/22 22:00 Pulse Rate 82 89 94 H Respiratory Rate 22 11 L 26 H Pulse Oximetry 92 94 96 04/30/22 22:30 04/30/22 23:00 04/30/22 23:30 Pulse Rate 90 92 H 86 Respiratory Rate 27 H 29 H 15 Pulse Oximetry 96 92 05/01/22 00:00 05/01/22 00:30 05/01/22 01:00 Pulse Rate 97 H 96 H 88 Respiratory Rate 26 H 32 H 15 Pulse Oximetry 94 97 100 05/01/22 01:30 05/01/22 02:00 05/01/22 02:30 Pulse Rate 88 84 83 Respiratory Rate 20 21 11 L Pulse Oximetry 100 100 100 05/01/22 03:00 Pulse Rate 84 Respiratory Rate 16 Pulse Oximetry 95 Oxygen Delivery Method Room Air Narrative Exam Narrative: Gen: Arousable, dishevelled 62 y.o. male, very lethargic HEENT: normocephalic, atraumatic, conjunctiva clear, sclera non-icteric, oral mucosa pink and moist Neck: supple, full ROM, no JVD, trachea is midline Resp: Lungs CTA, non-labored breathing CV: RRR, no murmur or rubs Abd: soft, non-tender, normoactive BTs Skin: multiple surface abrasions on lower legs bilaterally in various stages of healing. Neuro: Confused. Speaks in whispers Extremities: Is normally ambulatory with a cane, but appears to have arrived with a wheelchair, negative Ananya?s sign Psyche: unable to assess Objective Labs Result Diagrams: 04/30/22 18:50 04/30/22 18:50 Labs: Laboratory Results - last 24 hr 04/30/22 04/30/22 04/30/22 18:50 18:50 18:50 WBC 9.7 RBC 5.37 Hgb 11.5 L Hct 35.8 L MCV 66.6 L MCH 21.5 L MCHC 32.3 RDW 19.9 H Plt Count 310 Neut % (Auto) 74.8 Lymph % (Auto) 15.0 L [place] % (Auto) 9.0 Eos % (Auto) 1.0 L Baso % (Auto) 0.2 Neut # (Auto) 7300 H Lymph # (Auto) 1500 [place] # (Auto) 900 Eos # (Auto) 100 Baso # (Auto) 0 RBC Morphology See below Microcytosis 2+ H PT 12.6 INR 1.1 APTT 33 Sodium 137 Potassium 4.4 Chloride 99 Carbon Dioxide 31 BUN 15 Creatinine 0.54 L Estimated GFR > 60 BUN/Creatinine Ratio 27.8 H Glucose 124 H Calcium 9.1 Total Creatine Kinase 52 L CK-MB (CK-2) TNP CK-MB (CK-2) Rel Index TNP Troponin I < 0.012 U Opiates 300ng/mL cut Ur Oxycodone Screen Urine Methadone Screen Ur Barbiturates Screen U Tricyclic Antidepress Ur Phencyclidine Scrn Ur Amphetamines Screen U Methamphetamines Scrn Ur MDMA Scrn (Ecstasy) U Benzodiazepines Scrn Urine Cocaine Screen U Marijuana (THC) Screen SARS-CoV-2 (PCR) 05/01/22 05/01/22 01:55 03:20 WBC RBC Hgb Hct MCV MCH MCHC RDW Plt Count Neut % (Auto) Lymph % (Auto) [place] % (Auto) Eos % (Auto) Baso % (Auto) Neut # (Auto) Lymph # (Auto) [place] # (Auto) Eos # (Auto) Baso # (Auto) RBC Morphology Microcytosis PT INR APTT Sodium Potassium Chloride Carbon Dioxide BUN Creatinine Estimated GFR BUN/Creatinine Ratio Glucose Calcium Total Creatine Kinase CK-MB (CK-2) CK-MB (CK-2) Rel Index Troponin I U Opiates 300ng/mL cut Positive H Ur Oxycodone Screen Negative Urine Methadone Screen Negative Ur Barbiturates Screen Negative U Tricyclic Antidepress Negative Ur Phencyclidine Scrn Negative Ur Amphetamines Screen Positive H U Methamphetamines Scrn Positive H Ur MDMA Scrn (Ecstasy) Negative U Benzodiazepines Scrn Negative Urine Cocaine Screen Negative U Marijuana (THC) Screen Negative SARS-CoV-2 (PCR) Negative Assessment & Plan Assessment & Plan narrative: Fahad Ramesh is admitted to an inpatient bed for further workup and assessment of left sided weakness and a suspected CVA. 1. Suspected TIA vs Stroke * Cardiac telemetry * NIH score greater than 5 [X]no,? NIH scoring and neuro checks q 4 hours, though may difficult due to preexisting deficits * Dual antiplatelet therapy: No[] Yes[X] initiate dual antiplatelet therapy with clopidogrel 75 mg p.o. daily and aspirin 81 mg p.o. daily * MR stroke scheduled for today * Complete Echo with bubble study for today * PT/OT/ST evaluation 2. Hypertension, acute with an admission bp of 135/71, present on admission * He has been normotensive since arrival to the ED 3. HLD * Fasting lipid panel, pending for 0500 labs * Atorvastatin 40 mg po at bedtime 4. Polysubstance IV abuse * In prior notes, there was clinician suspicion of the patient using after friends left his room * He should be in a visible room * consult for post-discharge treatment resources 5. Risk stratification * Fasting lipid panel pending for the morning * A1c is pending VTE Prophylaxis: Wells risk score 1.5 X Enoxaparin 40 mg subQ once daily Bilateral SCDs FEN: IV fluids: saline lock, diet: NPO until assessed by Abhi, labs: CBC, C/BMP, liver enzymes, [facility] None Dispo: Unknown at this time Code status: Full code by default [X] I have utilized all available immediate resources to obtain, update, or review of the patient's current medications COVID-19 COVID-19 status: Negative Result date/Date tested (Pos, Neg/Pending): 05/01/22 Scores Wells' Criteria for PE Clinical signs and symptoms of DVT: No PE is #1 Dx or equally likely: No Heart rate > 100: No Immobilization at least 3 days or surg in previous 4 weeks: Yes History of PE or DVT: No Hemoptysis: No Malignancy w/Treatment within 6 months or palliative: No Wells' PE Score total: 1.5 Quality VTE Deep Vein Thrombosis/Pulmonary Embolism Present on Admission: No MIPS - Admit I confirm the patient?s Advance Care Plan is present, Code status is documented, Surrogate decision maker is in patient?s record [If Yes, STOP here]: Yes MIPS - DC The patient has current or prior documentation of left ventricular ejection fraction (LVEF) less than 40%, or moderate or severely depressed left ventricular systolic function.: No
--- NOTE | 2022-05-01 05:14 | DI.MRI.S_ITS ---
PROCEDURE: MR HEAD/BRAIN WO CON INDICATIONS: Suspected left sided CVA TECHNIQUE: Non-contrast axial T1 spin echo, axial T2 fast spin echo, sagittal and axial FLAIR, coronal T2 fast spin echo, axial gradient echo, axial diffusion and ADC through the brain. COMPARISON: None. FINDINGS: Image quality: Motion degraded exam. CSF spaces: Ventricles appear symmetric in size and shape. Basal cisterns are patent. No extra-axial fluid collections. Brain: No intracranial bleeds or mass effects. There is cerebral volume loss for age. There are periventricular and deep white matter chronic small vessel ischemic changes. Brainstem appears normal. Diffusion-weighted images show no acute ischemic insults. No chronic ischemic insults. Normal intravascular flow voids are present. Skull and face: Calvarial bone marrow is normal in signal. Orbits are normal. Sinuses: Sinuses and mastoids are clear. IMPRESSION: Limited motion degraded exam. No restricted diffusion to suggest recent ischemia. No acute intracranial abnormality otherwise. Dictated by: Ash Bertrand M.D. on 05/01/2022 at 11:24 Approved by: Ash Bertrand M.D. on 05/01/2022 at 11:25
--- NOTE | 2022-05-01 05:14 | DI.ECHO.S_ITS ---
[facility]---------+ [facility] +---------+ : : [address] : : : : [place], [place] : : : : [id number] : : : : Phone: [phone]+ Echocardiogram Report + + :Name: GUILLERMINA SZYMANSKI Study Date: 05/01/2022 Height: 70 in : :[facility] ReadingLocation: Weight: 150 lb: : Gender: Male BSA: 1.8 m2 : :: 1960 Age: 62 yrs : :Reason For Study: CVA : :Ordering Physician: TATE SAMANIEGO Performed By: Pattie Villar : :Referring: TATE SAMANIEGO : + + Interpretation Summary 1) Nromal left ventricular thickness and size with low normal systolic function (EF 50-55%). 2) Upper normal right ventricular size with normal function. 3) No significant valvular abnormalities. 4) Injection of contrast documented no interatrial shunt. 5) Compared to the Echo done 10/04/2016, LV is slightly less dynamic on this study. Procedure: A two-dimensional transthoracic echocardiogram with color flow and Doppler was performed. The study quality was technically adequate. Comparison is made with the echocardiogram of 10/04/2016. A saline contrast injection was performed to assess for cardiac shunting. The injection was performed through an intravenous line in the right arm. The patient was in sinus rhythm with heart rates between 78-91 bpm during the exam. Left Ventricle: The left ventricle is normal in size and wall thickness. The ejection fraction is estimated to be 50-55%. There are no focal wall motion abnormalities. Right Ventricle: The right ventricle is at the upper limits of normal in size. The right ventricular systolic function is normal. Atria: The left atrial size is normal. Right atrial size is normal. There is no Doppler evidence for an interatrial shunt. Injection of contrast documented no interatrial shunt. Mitral Valve: There is mild mitral annular calcification. There is no mitral regurgitation noted. Aortic Valve: The aortic valve is trileaflet. The aortic valve opens well. There is no aortic valve stenosis. There is trace aortic regurgitation. Tricuspid Valve: The tricuspid valve is normal in structure and function. There is mild tricuspid regurgitation. Pulmonic Valve: The pulmonic valve leaflets are thin and pliable; valve motion is normal. There is no pulmonic valvular regurgitation. Great Vessels: The aortic root is normal size. The dimensions of the ascending aorta are normal. The IVC is of normal diameter and collapses greater than 50% with a sniff. This suggests a low right atrial pressure of 3 mm Hg. Pericardium/ Pleura There is no pericardial effusion. There is no pleural effusion. MMode/2D Measurements & Calculations LVIDd: 5.1 cm LVOT diam: 2.2 cm LVIDs: 3.8 cm Ao root diam: 3.1 cm FS: 25.6 % asc Aorta Diam: 3.0 cm IVSd: 0.78 cm LVPWd: 0.90 cm LV blum. diameter/BSA (cm/m^2): 2.7 LV sys. diameter/BSA (cm/m^2): 2.0 LA A2 area: 15.9 cm2 RA long axis: 4.4 cm LA A4 area: 15.6 cm2 RA area: 13.5 cm2 LA length (vol): 4.5 cm RA vol: 35.3 ml LA vol: 47.0 ml RA : 19.1 ml/m2 LA vol index: 25.5 ml/m2 IVC diam: 1.1 cm RVD1 (basal): 4.0 cm RVD2 (mid): 3.5 cm TAPSE: 1.7 cm Doppler Measurements & Calculations Ao V2 max: 98.2 cm/sec LVOT Max Pritesh: 84.4 cm/sec Ao V2 mean: 65.4 cm/sec LV V1 max P.8 mmHg Ao max P.9 mmHg LV V1 VTI: 14.1 cm Ao mean P.0 mmHg DUARTE(I,D): 2.7 cm2 Ao V2 VTI: 19.4 cm DUARTE(V,D): 3.2 cm2 sev ratio: 0.73 DUARTE indexed to BSA (cm^2/m^2): 1.5 MV E max pritesh: 81.3 cm/sec TR max pritesh: 303.9 cm/sec MV A max pritesh: 94.3 cm/sec TR max P.0 mmHg MV E/A: 0.86 PA V2 max: 121.0 cm/sec Med Peak E' Pritesh: 8.9 cm/sec PA V2 mean: 80.3 cm/sec E/E' med: 9.1 PA mean P.9 mmHg Lat Peak E' Pritesh: 9.8 cm/sec PA pr(Accel): 34.5 mmHg E/E' lat: 8.3 E/e' average: 8.7 MV dec time: 0.20 sec SV(LVOT): 52.0 ml Reading Physician:11:30 AM
[2022-05-01 06:52] LABS: Thyroid Stimulating Hormone 0.934 uIU/mL (0.47-4.68)
[2022-05-01 07:07] LABS: Magnesium 1.8 mg/dL (1.6-2.3)
[2022-05-01 07:08] LABS: BUN Creatinine Ratio 25.6 (6-22); Blood Urea Nitrogen 11 mg/dL (9-20); Carbon Dioxide 32 mmol/L (22-32); Chloride 101 mmol/L (98-107); Cholesterol 137 mg/dL (140-199); Estimated Glomerular Filt Rate > 60 mL/min (>60); Glucose 100 mg/dL (80-110); HDL Cholesterol 37 mg/dL (40-60); HEMOLYSIS 22 (0-50); LDL Cholesterol Calculated 87 mg/dL (<100); Potassium 4.3 mmol/L (3.4-5.1); Sodium 135 mmol/L (137-145); Triglycerides 65 mg/dL (35-150)
[2022-05-01 07:09] LABS: Add Manual Diff / Slide Review NO; Basophils Absolute Auto 0 /uL (0-100); Basophils Percent Auto 0.2 % (0-2); Eosinophils Absolute Auto 100 /uL (0-450); Eosinophils Percent Auto 1.8 % (2-4); Hematocrit 34.1 % (41-53); Hemoglobin 10.7 g/dL (13.5-17.5); Lymphocytes Absolute Auto 1300 /uL (1100-4500); Lymphocytes Percent Auto 22.6 % (25-40); Mean Corpuscular HGB Conc 31.5 % (30-36); Mean Corpuscular Hemoglobin 21.2 PG (26-34); Mean Corpuscular Volume 67.4 fL (80-100); Monocytes Absolute Auto 600 /uL (0-900); Monocytes Percent Auto 10.8 % (3-14); Neutrophils Absolute Auto 3800 /uL (1500-7000); Neutrophils Percent Auto 64.6 % (50-75); Platelet Count 227 X10^3/uL (150-400); Red Blood Cell Count 5.06 X10^6/uL (4.5-5.9)
[2022-05-01 08:41] LABS: Hemoglobin A1C% w Est Avg Glu 5.8 % (4.0-6.0)
[2022-05-01 09:34] LABS: Anisocytosis 2+; Microcytosis 1+
[2022-05-01 09:35] LABS: Hypochromasia 1+
--- NOTE | 2022-05-01 11:43 | PT-IP ANOTE ---
checked on pt and pt is asleep. tried to wake pt but pt unarousable. will check in pm.
--- NOTE | 2022-05-01 12:08 | PC.NURSE ---
admit pt to AC direct from MRI at 11:20. VSS. pt not moving right side. somulent r/t medication given (Ativan per report) prior to MRI. Pt arouses but then right back to sleep not verbalizing any answers to questions. Bed alarm on and call light in reach. Tele monitor and continuous O2 monitor on. Will complete admission questionnaire when pt more alert.
--- NOTE | 2022-05-01 13:03 | OT.IPNOTE ---
Pt had Ativan earlier and still not awake when checking in with nursing for OT eval. To check on pt tomorrow when pt is awake/alert for OT eval.
--- NOTE | 2022-05-01 13:07 | SLP.IPNOTE ---
Attempted to see pt for swallow evaluation. Per Nsg, pt recently received medication and was too somnolent to participate. Will follow up tomorrow.
--- NOTE | 2022-05-01 15:31 | PT-IP ANOTE ---
pt continues to be sleepy and unable to wake up to participate with PT. will f/u
--- NOTE | 2022-05-01 20:49 | PC.NURSE ---
event note/visitor Approx 1800 pt awoke and was thrashing about in bed pulling at his gown and blankets am I suffocating. reassured pt of surroundings and checked O2 (93%). Helped pt adjust in bed, pt noted to be moving right hand and RLE. Give me a nicotine patch my hips are killing me! I need something. notified of the same. Since pt now awake, this RN was able to complete admission questionnaire and confirm pt's support person. At 1910 while this RN was given report to onckirby RN, pt's visitor Ron arrived. Door to pt's room left open but no staff were present during visit. Ron stayed <10 minutes and left. Upon visitor leaving and this RN finishing report, this RN went to check on pt (discomfort/thrashing etc) and pt completely asleep with respirations equal and unlabored. As pt is current drug user, concern for possibility that friend administered pt illicit drugs. Coordinator and Francisco CASTILLO notified of the same.
[2022-05-01] MEDS: ENOXAPARIN 40 MG/0.4 ML SYRINGE SUBCUT (21:12)
--- NOTE | 2022-05-01 23:18 | PC.NURSE ---
Addendum entered by Effie Goyal R.N. 05/02/22 06:55: Patient began thrashing and kicking around 0500, received order for additional 1 x dose of 2mg lorazepam. Patient continued thrashing and kicking. Reported that he was withdrawing from heroin. Notified JONATHAN SAMANIEGO and received order for 1 x dose of 10 mg methadone. Placed seizure pads on bed for safety. Addendum entered by Effie Goyal R.N. 05/02/22 03:39: Patient passed swallow screen and was given apple sauce and pudding, started coughing, aspirated on pudding. Lungs coarse, no change. Oxygen 93% on 2L via nasal cannula. Placed on NPO diet, JONATHAN Samaniego notified, no new orders. Addendum entered by Effie Goyal R.N. 05/01/22 23:43: Error- NIH 10. Original Note: NIH-12, patient very sleepy and needed repeated stimulation to answer questions and follow commands during NIH assessment. When asked to read sentences, he stated no and fell asleep.
[2022-05-02] MEDS: LORazepam 2 MG/ML INJ IV ×5 (03:07→13:01)
[2022-05-02 04:40] VITALS: BP 165/105; PULSE 121; RESP 19; TEMP 36.3; O2SAT 97
[2022-05-02 05:30] LABS: Basophils Absolute Auto 0 /uL (0-100); Basophils Percent Auto 0.3 % (0-2); Eosinophils Absolute Auto 100 /uL (0-450); Eosinophils Percent Auto 0.8 % (2-4); Hematocrit 37.9 % (41-53); Hemoglobin 12.2 g/dL (13.5-17.5); Lymphocytes Absolute Auto 1800 /uL (1100-4500); Lymphocytes Percent Auto 21.9 % (25-40); Mean Corpuscular HGB Conc 32.2 % (30-36); Mean Corpuscular Hemoglobin 21.6 PG (26-34); Mean Corpuscular Volume 67.1 fL (80-100); Monocytes Absolute Auto 800 /uL (0-900); Monocytes Percent Auto 9.6 % (3-14); Neutrophils Absolute Auto 5600 /uL (1500-7000); Neutrophils Percent Auto 67.4 % (50-75); Platelet Count 272 X10^3/uL (150-400); Red Blood Cell Count 5.64 X10^6/uL (4.5-5.9); Red Cell Distribution Width 19.7 % (11.6-14.8); White Blood Cell Count 8.3 X10^3/uL (4.5-11.0)
[2022-05-02 05:31] LABS: Add Manual Diff / Slide Review SLIDE REVIEW
[2022-05-02 05:33] LABS: BUN Creatinine Ratio 27.7 (6-22); Blood Urea Nitrogen 13 mg/dL (9-20); Calcium 8.6 mg/dL (8.4-10.2); Carbon Dioxide 33 mmol/L (22-32); Chloride 96 mmol/L (98-107); Estimated Glomerular Filt Rate > 60 mL/min (>60); Glucose 122 mg/dL (80-110); HEMOLYSIS 43 (0-50); Magnesium 1.8 mg/dL (1.6-2.3); Potassium 4.2 mmol/L (3.4-5.1); Sodium 135 mmol/L (137-145)
--- NOTE | 2022-05-02 05:58 | PM.CALLCOV.1 ---
Call Coverage Note Note Narrative of Care Provided: Patient reported to be having heroin withdrawals despite repeated ativan doses. Ordered a one time dose of methadone, noted in previous stay was put on methadone tid which helped address his pain and withdrawals.
[2022-05-02] MEDS: METHADONE 10 MG TABLET PO (06:24)
[2022-05-02 07:05] LABS: Anisocytosis 1+; Hypochromasia 1+; Microcytosis 1+
[2022-05-02] MEDS: ENOXAPARIN 40 MG/0.4 ML SYRINGE SUBCUT (08:44)
[2022-05-02 08:52] VITALS: BP 138/78; RESP 20; TEMP 36.4; O2SAT 93
--- NOTE | 2022-05-02 09:54 | SLP.IPNOTE ---
Pt not appropriate to be seen this morning, per NSG, as he is still unable to follow directions and continues to kick and thrash in bed. NSG is going to talk to hospitalist to try different medication, stated that he may be able to participate in evaluation this afternoon.
[2022-05-02] MEDS: METHADONE 10 MG TABLET 20 MG PO (10:27)
--- NOTE | 2022-05-02 10:27 | OT.IPNOTE ---
Pt not appropriate for OT eval at this time as still having withdrawals, therefore discharge OT eval orders.
--- NOTE | 2022-05-02 10:32 | CM.DANOTE ---
DCP Note: Payor: [employer] PCP: Kenney Joshi MD Pt is a 62 y.o. M admitted with suspected right side CVA. Pt is a current smoker and IV drug user. CT was ordered and was negative for any acute intercrainial findings. Pt visitors are currently being restricted due to possibility of them bringing drugs for pt. This AM, it was found that patient was having heroin withdrawals and DEPARTMENT MANAGER prescribed methadone tid. PT, OT, and ST unable to work with patient this morning due to withdrawal behaviors. Pt has seizure pads on bed for safety. DCP unable to complete bedside assessment due to pt current state of withdrawal. DCP to continue to follow case and coordinate care between the care teams. Roya More RN/GISSELLE Discharge Planning/Care Management CM Discharge Assessment Start: 05/02/22 10:28 Freq: Status: Active Protocol: Document 05/02/22 10:29 KIKO (Rec: 05/02/22 10:32 [id number]) Discharge Planning Assessment Assigned Paleology Teacher Roya More RN/GISSELLE Advance Directives? No Advance Directives on File No History Provided By Medical Record Household Members friend(s) Independent with ADL's Yes Barriers to Discharge Yes Comment Homeless, lives on a fixed income, active/daily IVDU, h/o poly substance abuse. Pt needs resources for treatment. Discharge Plan Home Referrals Initiated None needed Additional Comment At this time Whiteboard Updated in Patient Room with No name and ext. # of Paleology Teacher Comment Unable to complete assessment. Pt not able to have conversations. Pt kicking in bed. Review Status In Process Please Provide Date Initial DC 05/02/22 Assessment Was Performed Next Review Type Continued Stay Review
--- NOTE | 2022-05-02 11:30 | PT-IP ANOTE ---
reviewed EMR and checked pt in room and moving around supine in bed. pt is very restless. NAC informed PT that pt is agitated and restless. From EMR, seems that pt is having a withdrawal from substance abuse. pt continues to be not appropriate for PT. informed MD during rounds and agreed to d/c at this time. will d/c PT eval at this time and will await new orders when pt is more stable and appropriate for PT.
[2022-05-02 12:49] VITALS: BP 170/101; PULSE 130; RESP 30
[2022-05-02 13:45] VITALS: BP 133/70; PULSE 103; RESP 28
[2022-05-02 14:34] VITALS: BP 131/77; PULSE 101; RESP 18; TEMP 36.2; O2SAT 93
--- NOTE | 2022-05-02 15:40 | SLP.IPNOTE ---
Per NSG, pt received a dose of methadone today to reduce withdrawal symptoms. Per hospitalist, pt is not appropriate for speech therapy evaluation at this time due to withdrawal symptoms. Hospitalist recommended discharge from speech therapy services and new orders will be put in when pt is more stable and appropriate for speech therapy.
--- NOTE | 2022-05-02 16:33 | P.PN_ITS ---
Subjective Subjective Date Patient Seen: 05/02/22 Interval history: More delirious today, unable to participate in subjective exam. Moaning and incomprehensible speech, much improved after some additional ativan. He was diaphoretic and tachycardic now improved after benzos. He had additional visitors and possibly was given illicit substances overnight, visitors are now restricted. Exam Vital Signs (past 8 hours): - 05/02/22 08:52 05/02/22 12:49 05/02/22 13:45 Temperature 97.6 F Pulse Rate 130 H 103 H Respiratory Rate 20 30 H 28 H Blood Pressure 138/78 170/101 H 133/70 Pulse Oximetry 93 05/02/22 14:34 Temperature 97.2 F L Pulse Rate 101 H Respiratory Rate 18 Blood Pressure 131/77 Pulse Oximetry 93 Oxygen Delivery Method Nasal Cannula Oxygen Flow Rate 2 Narrative Exam Narrative: Gen:confused, dishevelled 62 y.o. male, not alert and predominantly moaning. HEENT: normocephalic, atraumatic, conjunctiva clear, sclera non-icteric, oral mucosa pink and moist Neck: supple, full ROM, no JVD, trachea is midline Resp: Lungs CTA, non-labored breathing CV: RRR, no murmur or rubs Abd: soft, non-tender, normoactive BTs Skin: multiple surface abrasions on lower legs bilaterally in various stages of healing. Neuro: Confused. inaudible / incomprehensible speech. Extremities: no edema or joint effusion Psyche: unable to assess Objective Labs Result Diagrams: 05/02/22 05:00 05/02/22 05:00 Labs: Laboratory Results - last 24 hr 05/02/22 05/02/22 05:00 05:00 WBC 8.3 RBC 5.64 Hgb 12.2 L Hct 37.9 L MCV 67.1 L MCH 21.6 L MCHC 32.2 RDW 19.7 H Plt Count 272 Neut % (Auto) 67.4 Lymph % (Auto) 21.9 L Williams % (Auto) 9.6 Eos % (Auto) 0.8 L Baso % (Auto) 0.3 Neut # (Auto) 5600 Lymph # (Auto) 1800 Williams # (Auto) 800 Eos # (Auto) 100 Baso # (Auto) 0 RBC Morphology See below Hypochromasia 1+ H Anisocytosis 1+ H Microcytosis 1+ H Sodium 135 L Potassium 4.2 Chloride 96 L Carbon Dioxide 33 H BUN 13 Creatinine 0.47 L Estimated GFR > 60 BUN/Creatinine Ratio 27.7 H Glucose 122 H Calcium 8.6 Magnesium 1.8 PFSH Medical History (Updated 05/02/22 @ 00:00 by ) Asthma Chronic back pain greater than 3 months duration Closed intertrochanteric fracture of left femur Depression Drug abuse, IV History of CVA (cerebrovascular accident) Surgical History History of hernia repair Family History Father Unknown family medical history Mother No problems noted. Grandmother Myocardial infarction Grandfather No problems noted. Social History household members: friend(s) Smoking Status: Current some day smoker alcohol intake: current Assessment & Plan Assessment & Plan narrative: 1. Metabolic encephalopathy with probable multi-substance withdrawal, most likely opiate withdrawal - suspect polysubstance withdrawal, definitely opiate with possible EtOH given presentation - continue methadone, ativan per [facility] protocol. Possibly received outside illicit substances overnight 05/01. Visitors now heavily restricted. - some improvement today in tachycardia, MRI was negative for CVA. - PT/ OT once mental status is improved. 2. Hypertension - likely due to withdrawal, will continue to monitor 3. HLD - continue statin 4. Polysubstance IV abuse - management as noted above. Code: Full, unable to discuss surrogate at this time. Time Spent With Patient Critical Care time: I spent a total of [] minutes of critical care time on this patient's care today; this time is exclusive of procedural time. Quality VTE Deep Vein Thrombosis/Pulmonary Embolism Present on Admission: No
[2022-05-02 20:00] VITALS: BP 129/69; PULSE 98; RESP 18; TEMP 36.1; O2SAT 98
[2022-05-02] MEDS: SODIUM CHLORIDE 0.9% 1,000 ML 100 ML IV (22:11)
--- NOTE | 2022-05-02 23:45 | PC.NURSE ---
Addendum entered by Effie Goyal R.N. 05/03/22 03:38: Late entry: Pt responds to verbal and tactile stimuli, goes right back to sleep, night time dose of methadone held. Started fluids, NS @ 100. Original Note: Unable to assess NIH stroke scale, patient sleeping.
[2022-05-03] VITALS (12 sets, daily range): BP systolic 125–156; BP diastolic 76–87; PULSE 76–101; RESP 18–28; TEMP 36.2–37.2; O2SAT 93–100
[2022-05-03 07:32] LABS: Add Manual Diff / Slide Review NO; Basophils Absolute Auto 0 /uL (0-100); Basophils Percent Auto 0.3 % (0-2); Eosinophils Absolute Auto 100 /uL (0-450); Eosinophils Percent Auto 0.7 % (2-4); Hematocrit 37.1 % (41-53); Hemoglobin 11.9 g/dL (13.5-17.5); Lymphocytes Absolute Auto 1400 /uL (1100-4500); Lymphocytes Percent Auto 17.9 % (25-40); Mean Corpuscular HGB Conc 32.2 % (30-36); Mean Corpuscular Hemoglobin 21.6 PG (26-34); Mean Corpuscular Volume 67.2 fL (80-100); Monocytes Absolute Auto 700 /uL (0-900); Monocytes Percent Auto 9.5 % (3-14); Neutrophils Absolute Auto 5500 /uL (1500-7000); Neutrophils Percent Auto 71.6 % (50-75); Platelet Count 250 X10^3/uL (150-400); Red Blood Cell Count 5.52 X10^6/uL (4.5-5.9); Red Cell Distribution Width 19.7 % (11.6-14.8); White Blood Cell Count 7.6 X10^3/uL (4.5-11.0)
[2022-05-03 07:39] LABS: Blood Urea Nitrogen 19 mg/dL (9-20); Calcium 8.5 mg/dL (8.4-10.2); Carbon Dioxide 31 mmol/L (22-32); Chloride 103 mmol/L (98-107); Estimated Glomerular Filt Rate > 60 mL/min (>60); Glucose 88 mg/dL (80-110); HEMOLYSIS 31 (0-50); Magnesium 1.9 mg/dL (1.6-2.3); Potassium 3.8 mmol/L (3.4-5.1); Sodium 141 mmol/L (137-145)
[2022-05-03 08:02] LABS: Anisocytosis 1+; Microcytosis 1+
[2022-05-03] MEDS: METHADONE 10 MG TABLET 20 MG PO (09:57)
--- NOTE | 2022-05-03 10:07 | DI.RAD.S_ITS ---
PROCEDURE: XR CHEST 1V INDICATIONS: shortness of breath TECHNIQUE: One view of the chest was acquired. COMPARISON: [facility], , XR CHEST FOR PICC 1V, 05/01/2022, 1:44. FINDINGS: Surgical changes and devices: Right-sided PICC line tip is in SVC. Lungs and pleura: Mild pulmonary vascular congestion is seen. No definite focal infiltrate. No pleural effusions or pneumothorax. Mediastinum: Mediastinal contours appear normal. Heart size is normal. Bones and chest wall: No suspicious bony lesions. Overlying soft tissues appear unremarkable. IMPRESSION: Mild congestion. No definite focal infiltrate. No pleural effusion or pneumothorax. Dictated by: Victor M Espinosa M.D. on 05/03/2022 at 10:25 Approved by: Victor M Espinosa M.D. on 05/03/2022 at 10:26
[2022-05-03] MEDS: ALBUTEROL 2.5 MG/3 ML NEB (ADULT) INH (10:25)
[2022-05-03] MEDS: cefTRIAXone 1,000 MG in SODIUM CHLORIDE 0.9% 100 ML 200 MG IV (11:32)
[2022-05-03] MEDS: ENOXAPARIN 40 MG/0.4 ML SYRINGE SUBCUT (11:57)
--- NOTE | 2022-05-03 12:36 | SLP.IPNOTE ---
Attempted to see pt for bedside swallow evaluation at 12:20. Per NSG, pt saw respiratory therapy and exhibited a productive cough, though he would swallow whatever he coughed up. Additionally, suction was used to clear residue and pt exhibited minimal to no gag reflex, per NSG. Pt was asleep and did not awake to verbal or tactile cues. Will try again this afternoon.
[2022-05-03] MEDS: AZITHROMYCIN 500 MG in DEXTROSE 5% IN WATER 250 ML 250 MG IV (13:06)
--- NOTE | 2022-05-03 15:43 | PM.PN.1 ---
Subjective Subjective Date Patient Seen: 05/03/22 Interval history: Slightly more awake at times today. Complains of diffuse pain, but also speaks very softly, difficult to discern, and after pain medications he is quite somnolent. Had increasing respiratory secretions today, needing oxygen to keep O2 saturations >90%. started on antibiotics for probable pneumonia. Exam Vital Signs (past 8 hours): - 05/03/22 08:05 05/03/22 08:44 05/03/22 10:27 Temperature 97.2 F L Pulse Rate 96 H Respiratory Rate 20 28 H Blood Pressure 142/76 H Pulse Oximetry 96 95 94 Oxygen Delivery Method Nasal Cannula Nasal Cannula Oxygen Flow Rate 3.5 4 4 05/03/22 10:20 05/03/22 10:58 05/03/22 13:29 Temperature 98.4 F 97.6 F 97.6 F Pulse Rate 101 H 101 H 80 Respiratory Rate 21 21 18 Blood Pressure 142/78 H 137/84 132/80 Pulse Oximetry 93 96 100 Oxygen Delivery Method Oxygen Flow Rate 3 4 4 05/03/22 11:00 05/03/22 14:25 Temperature 97.6 F Pulse Rate 101 H Respiratory Rate 21 Blood Pressure 137/84 Pulse Oximetry 96 98 Oxygen Delivery Method Nasal Cannula Oxygen Flow Rate 4 3 Oxygen Delivery Method Nasal Cannula Oxygen Flow Rate 3 Narrative Exam Narrative: Gen:confused, dishevelled 62 y.o. male, not alert and predominantly moaning. HEENT: normocephalic, atraumatic, conjunctiva clear, sclera non-icteric, oral mucosa pink and moist Neck: supple, full ROM, no JVD, trachea is midline Resp: Lungs CTA, non-labored breathing CV: RRR, no murmur or rubs Abd: soft, non-tender, normoactive BTs Skin: multiple surface abrasions on lower legs bilaterally in various stages of healing. Neuro: Confused. inaudible / incomprehensible speech. Extremities: no edema or joint effusion Psyche: unable to assess Objective Labs Result Diagrams: 05/03/22 05:45 05/03/22 05:45 Labs: Laboratory Results - last 24 hr 05/03/22 05/03/22 05:45 05:45 WBC 7.6 RBC 5.52 Hgb 11.9 L Hct 37.1 L MCV 67.2 L MCH 21.6 L MCHC 32.2 RDW 19.7 H Plt Count 250 Neut % (Auto) 71.6 Lymph % (Auto) 17.9 L [place] % (Auto) 9.5 Eos % (Auto) 0.7 L Baso % (Auto) 0.3 Neut # (Auto) 5500 Lymph # (Auto) 1400 [place] # (Auto) 700 Eos # (Auto) 100 Baso # (Auto) 0 RBC Morphology See below Anisocytosis 1+ H Microcytosis 1+ H Sodium 141 Potassium 3.8 Chloride 103 Carbon Dioxide 31 BUN 19 Creatinine 0.38 L Estimated GFR > 60 BUN/Creatinine Ratio 50.0 H Glucose 88 Calcium 8.5 Magnesium 1.9 PFS Medical History (Updated 05/02/22 @ 00:00 by ) Asthma Chronic back pain greater than 3 months duration Closed intertrochanteric fracture of left femur Depression Drug abuse, IV History of CVA (cerebrovascular accident) Surgical History History of hernia repair Family History Father Unknown family medical history Mother No problems noted. Grandmother Myocardial infarction Grandfather No problems noted. Social History household members: friend(s) Smoking Status: Current some day smoker alcohol intake: current Assessment & Plan Assessment & Plan narrative: 1. Metabolic encephalopathy with probable multi-substance withdrawal, most likely opiate withdrawal - suspect polysubstance withdrawal, definitely opiate with possible EtOH given presentation - continue methadone, ativan per [facility] protocol. Possibly received outside illicit substances overnight 05/01. Visitors now heavily restricted. - MRI was negative for CVA. - PT/ OT once mental status is improved. -dietary consultation once mental status improves. 2. Acute respiratory failure with hypoxia - suspect secondary to aspiration pneumonia or possible pneumonitis. - chest xray with mild congestive appearance but could be aspiration given clinical picture. Doubt CHF given recent TTE with normal Ef and no signs of diastolic dysfunction. - started on ceftriaxone and azithromycin today for possible bacterial pneumonia, with increased secretions noted today and need for supplemental O2. - sputum cultures ordered - RT eval and treatments appreciated. prn albuterol started. - consider speech eval depending on mental status improvements. 2. Hypertension - likely due to withdrawal, will continue to monitor but is now improving. 3. HLD - continue statin 4. Polysubstance IV abuse - management as noted above. Code: Full, unable to discuss surrogate at this time. Time Spent With Patient Critical Care time: I spent a total of [] minutes of critical care time on this patient's care today; this time is exclusive of procedural time. Quality VTE Deep Vein Thrombosis/Pulmonary Embolism Present on Admission: No
--- NOTE | 2022-05-03 16:17 | SLP.IPNOTE ---
Attempted to see pt for bedside swallow evaluation at 16:00. Pt was sleeping reclined in bed when SOYBEAN GROWER arrived. NSG awoke pt with verbal and tactile cues, and pt responded to questions by nodding or shaking his head, but kept his eyes closed. NSG assisted to position in semi-upright position and clinician attempted oral motor exam. Pt exhibited minimal movement of lips (i.e., smile/pucker) and tongue (i.e., protrusion, lateralization to right) when prompted. He did not open his eyes when asked and did not respond when asked to elevate and depress tongue tip. Due to low energy, pt is not appropriate for PO trials at this time. Will attempt to assess tomorrow.
[2022-05-03] MEDS: SODIUM CHLORIDE 0.9% 1,000 ML 100 ML IV (17:49)
[2022-05-03] MEDS: METHADONE 10 MG TABLET PO (21:57)
[2022-05-04] VITALS (11 sets, daily range): BP systolic 109–156; BP diastolic 61–76; PULSE 62–98; RESP 16–20; TEMP 36.6–38.4; O2SAT 96–100
[2022-05-04] MEDS: SODIUM CHLORIDE 0.9% 1,000 ML 100 ML IV (03:54)
[2022-05-04 05:24] LABS: Add Manual Diff / Slide Review NO; Basophils Absolute Auto 100 /uL (0-100); Basophils Percent Auto 0.7 % (0-2); Eosinophils Absolute Auto 0 /uL (0-450); Eosinophils Percent Auto 0.1 % (2-4); Hematocrit 34.9 % (41-53); Hemoglobin 10.9 g/dL (13.5-17.5); Lymphocytes Absolute Auto 900 /uL (1100-4500); Lymphocytes Percent Auto 7.3 % (25-40); Mean Corpuscular HGB Conc 31.3 % (30-36); Mean Corpuscular Hemoglobin 21.2 PG (26-34); Mean Corpuscular Volume 67.8 fL (80-100); Monocytes Absolute Auto 600 /uL (0-900); Monocytes Percent Auto 5.3 % (3-14); Neutrophils Absolute Auto 10600 /uL (1500-7000); Neutrophils Percent Auto 86.6 % (50-75); Platelet Count 243 X10^3/uL (150-400); Red Blood Cell Count 5.15 X10^6/uL (4.5-5.9); Red Cell Distribution Width 19.8 % (11.6-14.8); White Blood Cell Count 12.2 X10^3/uL (4.5-11.0)
[2022-05-04 05:37] LABS: BUN Creatinine Ratio 30.2 (6-22); Blood Urea Nitrogen 13 mg/dL (9-20); Calcium 8.2 mg/dL (8.4-10.2); Carbon Dioxide 31 mmol/L (22-32); Chloride 107 mmol/L (98-107); Estimated Glomerular Filt Rate > 60 mL/min (>60); Glucose 89 mg/dL (80-110); HEMOLYSIS < 15 (0-50); Potassium 3.7 mmol/L (3.4-5.1); Sodium 142 mmol/L (137-145)
[2022-05-04 06:11] LABS: Anisocytosis 1+; Hypochromasia 1+; Microcytosis 1+
[2022-05-04] MEDS: ACETAMINOPHEN 325 MG TABLET 650 MG PO (06:39)
[2022-05-04] MEDS: METHADONE 10 MG TABLET PO ×2 (08:17→21:30)
[2022-05-04] MEDS: SERTRALINE 50 MG TABLET 100 MG PO (09:55)
[2022-05-04] MEDS: MULTIVITAMIN 1 TABLET 1 TAB PO (09:55)
[2022-05-04] MEDS: FOLIC ACID 1 MG TABLET PO (09:56)
[2022-05-04] MEDS: CLOPIDOGREL 75 MG TABLET PO (09:56)
[2022-05-04] MEDS: ENOXAPARIN 40 MG/0.4 ML SYRINGE SUBCUT (09:56)
[2022-05-04] MEDS: ASPIRIN EC 81 MG TABLET PO (09:56)
[2022-05-04] MEDS: THIAMINE 100 MG TABLET PO (09:56)
--- NOTE | 2022-05-04 10:14 | ST.IPCSEOM ---
Visit Care Team Role Provider Type Kenney Joshi MD Family Provider Non-Staff Primary Care Provider Specialty: Family Practice Address: [address] , [address], [place], [address] Email: Richard Hannon DO Emergency Provider Physician Referring Provider Specialty: Emergency Medicine Address: [address] [place] [address], [id number] Email: [email or web address] JONATHAN Sampson Admit Provider Physician Attending Provider Specialty: Internal Medicine Address: [address] [place] [address], [id number] Email: [email or web address] Diagnoses Cerebral infarction, unspecified (05/01/22) Past Medical History (Last Updated 05/01/22 @ 05:11 by JONATHAN Sampson) Asthma (Medical) Chronic back pain greater than 3 months duration (Medical) Closed intertrochanteric fracture of left femur (Medical) Depression (Medical) Drug abuse, IV (Social Hx) History of CVA (cerebrovascular accident) (Medical) Speech-Language Pathology Swallow Evaluation SCHOOL GUARD Clinical Swallow Evaluation Start: 05/04/22 09:32 Freq: Status: Active Protocol: Document 05/04/22 09:33 ZS (Rec: 05/04/22 10:14 ZS [id number]) Clinical Swallow Evaluation Session Time Visit Start Time 08:30 Visit Stop Time 09:15 Total Visit Minutes 45 Setting Assessment Location Acute Care Visit Type Note Type Initial evaluation Next Note Type Next Note Type Treatment Note Patient Information Identification Type Name,Wristband History Per H&P: Fahad Ramesh is a 62 y.o. male current smoker and IV drug user, history of a prior right sided CVA in 2016 and resident of [facility] presented to the ED with a week plus complaint of weakness and multiple falls. Patient is very lethargic and unable to provide a history, speaks in whispered voice and difficult to understand. Per the ED provider, he normally walks with a cane and over the past week or two, has had numbness, tingling and weakness in his left upper and lower extremities. CT of the head was negative for any acute intercrainal findings, CTA stated as normal. Urine toxicology is positive for opiates, amphetamine, and methamphetamine. On 05/01/2022, pt complained of diffuse pain, but also speaks very softly, difficult to discern, and after pain medications he is quite somnolent. Had increasing respiratory secretions today, needing oxygen to keep O2 saturations >90%. Started on antibiotics for probable pneumonia. Subjective Observations Pt was semi-reclined in bed when SCHOOL GUARD arrived. His eyes were closed, but he opened them upon request from NSG. Eyes were mostly closed for assessment, but pt opened eyes and looked at cup of water or clinician/NSG when requesting additional liquid. Pt was repositioned to upright for oral motor exam and PO trials. Reported by Patient Pain Intensity 8 Pain Scale Used Numeric (0 - 10) Location Lower Back Comment Pt presented with lower back pain during assessment, which he rated as an 8. NSG helped reposition pt to relieve pain. Current Diet Nothing by mouth Baseline Feeding Method Dependent for feeding Objective Assessment Mental Status Alert,Responsive,Lethargic Lip Function Moderate impairment Observation of Lips at Rest Left sided weakness/Drooping Pucker Reduced range of motion, Reduced strength Alternating Pucker/Lip Retraction Reduced range of motion, Incoordination Observations of Jaw at Rest Within normal limits Jaw Opening Reduced range of motion Hard/Soft Palate Function Within normal limits Observations of Hard/Soft Palate Within normal limits Comment Partial oral motor exam completed. Pt followed directions better today, though required periodic tactile cues to stay awake during assessment. He kept his eyes open for 1-3 minutes at a time, and this time gradually decreased as the assessment continued. Smile ROM was significantly improved since yesterday, though moderate weakness and ROM impairment still present. Pucker was uncoordinated and strength and ROM were moderately impaired. Toward the end of the assessment, as pt's energy fell, a mild- moderate left lip weakness/ drooping was observed. Pt exhibited opening and closing of jaw with mild impairment in ROM. Limited view of intraoral structures, though soft palate appeared WNL. Unable to view teeth today, but NSG reported pt is missing some teeth. Pt spoke minimally today, and when he did speak, voice was clear but soft. Food and Liquid Trials Position During Assessment Upright (90 degrees),In bed Liquids Trialed Thin Administration Type Controlled cup sip,Straw, Dependent feeding Oral Phase Comments Trialed water on denta-swab, with which pt exhibited no overt signs or symptoms of aspiration. He remained awake and alert for duration of trials and exhibited labial closure around denta-swab WNL. Pt exhibited no overt signs or symptoms of aspiration with controlled cup sip of thin water. No anterior loss of bolus observed and no oral residue observed following trials. Pharyngeal Phase Comments Thin liquid (i.e., water and mixed marc ensure) through straw trialed. Pt exhibited fast intake with large bolus sizes and did not respond to verbal cues to slow down or take small sips. Coughing observed following trials, with several weak coughs and 1 -2 strong coughs prompted by NSG and clinician. When bolus size was controlled through use of pinching the straw and removing it from his mouth, pt exhibited no coughing. Comment Limited trials completed and difficult to assess fatigue given pt kept his eyes closed for most of assessment. Unable to assess fatigue at this time. Strategies Attempted Other Response/Comments Controlled bolus size by pinching and removing straw from pt's mouth. Findings Contributing Factors to Swallow Reduced alertness or attention Impairment ,Difficulty following directions,Reduced oral strength/coordination/ sensation Prognosis Fair Based on Cognitive status,Age,History of aspiration/aspiration pneumonia,Comorbidities, Duration of symptoms/severity Comment Due to low compliance with swallow safety strategies, difficulty keeping eyes open, and current communication status, pt has limited ability to participate in bedside swallow evaluation. Pt's high pain levels negatively impact his ability to maintain upright position during and for 20 minutes after eating. Pt currently consumes liquid at a fast rate and with large bolus sizes, which increases his risk for aspiration. Rate and size of bolus is likely due, in part, to hunger and thirst levels as pt has not eaten in several days. Difficult to determine when pt is beginning to fatigue due to eyes remaining closed for most of evaluation. Recommend checking for alertness by requesting pt to open eyes and keep eyes open for as long as he can prior to each bite. Recommend clear liquid diet with 1:1 feeding assistance to control bolus size (e.g., pinching straw to control intake or spoon feeding liquids) and assist in maintaining upright position during and for 20 minutes after meals. Will continue to assess and modify diet order as appropriate. Impact on Safety and Functioning Risk for aspiration,Risk for inadequate nutrition/hydration Recommendations Instrumental Assessment No Swallowing Treatment Yes Other Recommendations Clear liquid diet with 1:1 feeding assistance to control rate of eating and bolus size (via straw pinching and spoon feeding liquids). Safety Precautions/Swallowing 1 to 1 close supervision,Feed Recommendations only when alert,Remain upright (90 degrees) during all oral intake,Upright position at least 30 minutes after meals, Small bites and sips when eating,Slow rate; swallow between bites,1 to 1 feeding assistance,Strict oral care after intake Education Patient/Caregiver Education Described results of evaluation Goals Short-term Goals 1. Pt to participate in ongoing evaluation of swallow safety with diet advancement as appropriate. Long-term Goals Pt will safely tolerate least restrictive diet to meet his nutrition and hydration needs.
[2022-05-04] MEDS: cefTRIAXone 1,000 MG in SODIUM CHLORIDE 0.9% 100 ML 200 MG IV (12:41)
--- NOTE | 2022-05-04 13:14 | DIET.CONS ---
Dietary Consultation Note Admission Date: 05/01/2022 04:28 Assessment: Tried to see pt this morning, but seemed quite sleepy. Will try again this afternoon as suggested by RN. Electronically Signed by: Anne Yoo 05/04/22 13:14 Clinical Dietitian [address] [address]
[2022-05-04] MEDS: AZITHROMYCIN 500 MG in DEXTROSE 5% IN WATER 250 ML 250 MG IV (14:15)
--- NOTE | 2022-05-04 15:52 | CM.DPC ---
DCP Cont: DCP stopped by patient room this AM to discuss discharge planning. Pt was sleeping and was not able to provide much information as he appeared to be drowsy. DCP to continue follow case and assessing for needs. Drug treatment Resources to be given to patient when more alert. Roya More RN/DCP
--- NOTE | 2022-05-04 17:35 | DIET.CONS ---
Dietary Consultation Note Admission Date: 05/01/2022 04:28 Assessment: Still not appropriate for consult. Pt unable to hold conversation or stay awake. Will try again Saturday when RD returns. Sending Ensure clear at meals based on HEEL SEAT FLAP STAPLER ruiz. Electronically Signed by: Anne Yoo 05/04/22 17:35 Clinical Dietitian [address] [address]
--- NOTE | 2022-05-04 18:18 | PM.PN.1 ---
Subjective Subjective Date Patient Seen: 05/04/22 Interval history: Lethargic but arousable male. Not very conversant but awakens. It appears he may have aspirated yesterday Exam Vital Signs (past 8 hours): - 05/04/22 11:32 05/04/22 11:43 05/04/22 12:00 Temperature 98.4 F 98.4 F Pulse Rate 72 70 Respiratory Rate 20 20 Blood Pressure 120/66 120/66 Pulse Oximetry 97 97 Oxygen Delivery Method Nasal Cannula Oxygen Flow Rate 3 4 05/04/22 17:27 Temperature 97.9 F Pulse Rate 62 Respiratory Rate 20 Blood Pressure 109/64 Pulse Oximetry 98 Oxygen Delivery Method Oxygen Flow Rate 2 Oxygen Delivery Method Nasal Cannula Oxygen Flow Rate 2 Narrative Exam Narrative: sleepy male arousable appears comfortable Resp Other: Lungs: clear to auscultation Cardio Other: RRR Nl Sl S2 GI Other: Abd: soft/ nont [place]/ nondistended Extrem Other: no edema Objective Labs Result Diagrams: 05/04/22 05:10 05/04/22 05:10 Labs: Laboratory Results - last 24 hr 05/04/22 05/04/22 05:10 05:10 WBC 12.2 H D RBC 5.15 Hgb 10.9 L Hct 34.9 L MCV 67.8 L MCH 21.2 L MCHC 31.3 RDW 19.8 H Plt Count 243 Neut % (Auto) 86.6 H Lymph % (Auto) 7.3 L [place] % (Auto) 5.3 Eos % (Auto) 0.1 L Baso % (Auto) 0.7 Neut # (Auto) 7[address] H Lymph # (Auto) 900 L [place] # (Auto) 600 Eos # (Auto) 0 Baso # (Auto) 100 RBC Morphology See below Hypochromasia 1+ H Anisocytosis 1+ H Microcytosis 1+ H Sodium 142 Potassium 3.7 Chloride 107 Carbon Dioxide 31 BUN 13 Creatinine 0.43 L Estimated GFR > 60 BUN/Creatinine Ratio 30.2 H Glucose 89 Calcium 8.2 L PFSH Medical History (Updated 05/02/22 @ 00:00 by ) Asthma Chronic back pain greater than 3 months duration Closed intertrochanteric fracture of left femur Depression Drug abuse, IV History of CVA (cerebrovascular accident) Surgical History History of hernia repair Family History Father Unknown family medical history Mother No problems noted. Grandmother Myocardial infarction Grandfather No problems noted. Social History household members: friend(s) Smoking Status: Current some day smoker alcohol intake: current Assessment & Plan Assessment & Plan narrative: Metabolic encephalopathy with probable multi-substance withdrawal, most likely opiate withdrawal ?- suspect polysubstance withdrawal, definitely opiate with possible EtOH given presentation ?- continue methadone, ativan per [facility] protocol. Possibly received outside illicit substances overnight 05/01. Visitors now heavily restricted. ?- MRI was negative for CVA. ?- PT/ OT once mental status is improved. -dietary consultation once mental status improves. Patient more alert today, but still lethargic 2. Acute respiratory failure with hypoxia ?- suspect secondary to aspiration pneumonia or possible pneumonitis. ?- chest xray with mild congestive appearance but could be aspiration given clinical picture. Doubt CHF given recent TTE with normal Ef and no signs of diastolic dysfunction. ?- started on ceftriaxone and azithromycin today for possible bacterial pneumonia, with increased secretions noted today and need for supplemental O2. ?- sputum cultures ordered ?- RT eval and treatments appreciated. prn albuterol started. ?- consider speech eval depending on mental status improvements. -RoomAir oxygen 98%, likely can d/c oxygen today ? 2. Hypertension ?- likely due to withdrawal, will continue to monitor but is now improving. 3. HLD ?- continue statin 4. Polysubstance IV abuse ?- management as noted above. Time Spent With Patient Critical Care time: I spent a total of [] minutes of critical care time on this patient's care today; this time is exclusive of procedural time. Quality VTE Deep Vein Thrombosis/Pulmonary Embolism Present on Admission: No
[2022-05-04] MEDS: ATORVASTATIN 20 MG TABLET 40 MG PO (21:30)
[2022-05-05] VITALS (8 sets, daily range): BP systolic 115–134; BP diastolic 64–75; PULSE 57–75; RESP 15–20; TEMP 36.2–37.3; O2SAT 93–99
[2022-05-05] MEDS: SODIUM CHLORIDE 0.9% 1,000 ML 100 ML IV ×3 (02:26→22:51)
[2022-05-05 06:17] LABS: Add Manual Diff / Slide Review NO; Basophils Absolute Auto 0 /uL (0-100); Basophils Percent Auto 0.3 % (0-2); Eosinophils Absolute Auto 100 /uL (0-450); Eosinophils Percent Auto 1.8 % (2-4); Hemoglobin 9.5 g/dL (13.5-17.5); Lymphocytes Absolute Auto 1500 /uL (1100-4500); Lymphocytes Percent Auto 21.9 % (25-40); Mean Corpuscular HGB Conc 31.7 % (30-36); Mean Corpuscular Hemoglobin 21.6 PG (26-34); Mean Corpuscular Volume 68.1 fL (80-100); Monocytes Absolute Auto 500 /uL (0-900); Monocytes Percent Auto 8.3 % (3-14); Neutrophils Absolute Auto 4500 /uL (1500-7000); Neutrophils Percent Auto 67.7 % (50-75); Platelet Count 213 X10^3/uL (150-400); Red Blood Cell Count 4.41 X10^6/uL (4.5-5.9); Red Cell Distribution Width 19.6 % (11.6-14.8); White Blood Cell Count 6.6 X10^3/uL (4.5-11.0)
[2022-05-05 06:27] LABS: Blood Urea Nitrogen 10 mg/dL (9-20); Calcium 7.9 mg/dL (8.4-10.2); Carbon Dioxide 37 mmol/L (22-32); Chloride 104 mmol/L (98-107); Estimated Glomerular Filt Rate > 60 mL/min (>60); Glucose 86 mg/dL (80-110); HEMOLYSIS < 15 (0-50); Potassium 3.2 mmol/L (3.4-5.1); Sodium 140 mmol/L (137-145)
[2022-05-05 07:11] LABS: Microcytosis 2+
[2022-05-05] MEDS: ENOXAPARIN 40 MG/0.4 ML SYRINGE SUBCUT (08:01)
[2022-05-05] MEDS: SERTRALINE 50 MG TABLET 100 MG PO (08:02)
[2022-05-05] MEDS: METHADONE 10 MG TABLET PO (08:02)
[2022-05-05] MEDS: ASPIRIN EC 81 MG TABLET PO (08:02)
[2022-05-05] MEDS: FOLIC ACID 1 MG TABLET PO (08:02)
[2022-05-05] MEDS: MULTIVITAMIN 1 TABLET 1 TAB PO (08:02)
[2022-05-05] MEDS: CLOPIDOGREL 75 MG TABLET PO (08:02)
[2022-05-05] MEDS: THIAMINE 100 MG TABLET PO (08:02)
[2022-05-05] MEDS: POTASSIUM CHLORIDE 20 MEQ TAB 40 MEQ PO ×2 (08:37→14:40)
--- NOTE | 2022-05-05 10:41 | SLP.IPNOTE ---
This SALAD BAR CLERK went to work with the pt this AM. Per nurse, the pt took medication via water with no difficulties and had an ensure drink with no difficulties as well. Pt was resting in a reclined position this AM after being changed. Pt was unable to be aroused enough to participate in PO trials with this SALAD BAR CLERK. Pt noted his pain to be at an 8, specifically in his back and legs. Pt did open his eyes x2 to talk with this SALAD BAR CLERK and answer simple questions. SALAD BAR CLERK noted gurgly exhale and pt did cough x1 while SALAD BAR CLERK was in the room. In checking with the nurse, this is at baseline with this pt at this time. This SALAD BAR CLERK recommends continuing diet orders and safe swallowing strategies that are already in place.
[2022-05-05] MEDS: cefTRIAXone 1,000 MG in SODIUM CHLORIDE 0.9% 100 ML 200 MG IV (11:28)
[2022-05-05] MEDS: AZITHROMYCIN 500 MG in DEXTROSE 5% IN WATER 250 ML 250 MG IV (14:39)
--- NOTE | 2022-05-05 16:56 | P.PN_ITS ---
Subjective Subjective Date Patient Seen: 05/05/22 Interval history: Patient remains lethargic, he is arousable, and does answer questions today. He has been minimally participating with therapies. He does state he is hungry. He has no specific complaints. His oxygenation has improved. Exam Vital Signs (past 8 hours): - 05/05/22 12:00 Temperature 98.0 F Pulse Rate 57 L Respiratory Rate 16 Blood Pressure 115/65 Pulse Oximetry 93 Oxygen Flow Rate 0 Oxygen Delivery Method Nasal Cannula Oxygen Flow Rate 0 Narrative Exam Narrative: Lethargic male lying in bed arousable with slurred and mumbled speech Resp Other: Lungs: Clear to auscultation but decreased Cardio Other: Cardiac exam: Regular rate and rhythm normal S1-S2 GI Other: Abdomen: Soft and nontender Extrem Other: Extremities: No edema Psych Other: Lethargic male, arousable, but quickly falls back to sleep. Minimally conversant Objective Labs Result Diagrams: 05/05/22 05:45 05/05/22 05:45 Labs: Laboratory Results - last 24 hr 05/05/22 05/05/22 05:45 05:45 WBC 6.6 RBC 4.41 L Hgb 9.5 L Hct 30.0 L MCV 68.1 L MCH 21.6 L MCHC 31.7 RDW 19.6 H Plt Count 213 Neut % (Auto) 67.7 Lymph % (Auto) 21.9 L [place] % (Auto) 8.3 Eos % (Auto) 1.8 L Baso % (Auto) 0.3 Neut # (Auto) 4500 Lymph # (Auto) 1500 [place] # (Auto) 500 Eos # (Auto) 100 Baso # (Auto) 0 RBC Morphology See below Microcytosis 2+ H Sodium 140 Potassium 3.2 L Chloride 104 Carbon Dioxide 37 H BUN 10 Creatinine 0.40 L Estimated GFR > 60 BUN/Creatinine Ratio 25.0 H Glucose 86 Calcium 7.9 L [facility] Medical History (Updated 05/02/22 @ 00:00 by ) Asthma Chronic back pain greater than 3 months duration Closed intertrochanteric fracture of left femur Depression Drug abuse, IV History of CVA (cerebrovascular accident) Surgical History History of hernia repair Family History Father Unknown family medical history Mother No problems noted. Grandmother Myocardial infarction Grandfather No problems noted. Social History household members: friend(s) Smoking Status: Current some day smoker alcohol intake: current Assessment & Plan Assessment & Plan narrative: Metabolic encephalopathy with probable multi-substance withdrawal, most likely opiate withdrawal ?- suspect polysubstance withdrawal, definitely opiate with possible EtOH given presentation ?- continue methadone, ativan per [facility] protocol. Possibly received outside illicit substances overnight 05/01. Visitors now heavily restricted. ?- MRI was negative for CVA. ?- PT/ OT once mental status is improved. -dietary consultation once mental status improves. Patient more alert today, but still lethargic -given patient's persistent lethargy, will discontinue methadone and follow closely 2. Acute respiratory failure with hypoxia ?- suspect secondary to aspiration pneumonia or possible pneumonitis. ?- chest xray with mild congestive appearance but could be aspiration given clinical picture. Doubt CHF given recent TTE with normal Ef and no signs of diastolic dysfunction. ?- started on ceftriaxone and azithromycin today for possible bacterial pneumonia, with increased secretions noted today and need for supplemental O2. ?- sputum cultures ordered ?- RT eval and treatments appreciated. prn albuterol started. ?- consider speech eval depending on mental status improvements. -RoomAir oxygen 98%, likely can d/c oxygen today -continue IV antibiotics ? 2. Hypertension ?- likely due to withdrawal, will continue to monitor but is now improving. 3. HLD ?- continue statin 4. Polysubstance IV abuse ?- management as noted above. Time Spent With Patient Critical Care time: I spent a total of [] minutes of critical care time on this patient's care today; this time is exclusive of procedural time. Quality VTE Deep Vein Thrombosis/Pulmonary Embolism Present on Admission: No
[2022-05-05] MEDS: ALBUTEROL 2.5 MG/3 ML NEB (ADULT) INH (20:15)
[2022-05-05] MEDS: ATORVASTATIN 20 MG TABLET 40 MG PO (20:40)
[2022-05-05] MEDS: ACETAMINOPHEN 325 MG TABLET 650 MG PO (20:51)
[2022-05-06] VITALS (10 sets, daily range): BP systolic 132–162; BP diastolic 60–83; PULSE 58–96; RESP 14–20; TEMP 36.2–37.7; O2SAT 94–97
[2022-05-06] MEDS: LORazepam 1 MG TABLET PO ×2 (02:08→20:45)
[2022-05-06] MEDS: SODIUM CHLORIDE 0.9% 1,000 ML 100 ML IV ×2 (06:32→14:19)
[2022-05-06 06:55] LABS: Add Manual Diff / Slide Review NO; Basophils Absolute Auto 0 /uL (0-100); Basophils Percent Auto 0.3 % (0-2); Eosinophils Absolute Auto 100 /uL (0-450); Eosinophils Percent Auto 1.9 % (2-4); Hematocrit 29.9 % (41-53); Hemoglobin 9.5 g/dL (13.5-17.5); Lymphocytes Absolute Auto 1700 /uL (1100-4500); Lymphocytes Percent Auto 29.3 % (25-40); Mean Corpuscular HGB Conc 31.9 % (30-36); Mean Corpuscular Hemoglobin 21.7 PG (26-34); Mean Corpuscular Volume 67.9 fL (80-100); Monocytes Absolute Auto 400 /uL (0-900); Monocytes Percent Auto 7.2 % (3-14); Neutrophils Absolute Auto 3500 /uL (1500-7000); Neutrophils Percent Auto 61.3 % (50-75); Platelet Count 205 X10^3/uL (150-400); Red Blood Cell Count 4.41 X10^6/uL (4.5-5.9); Red Cell Distribution Width 19.4 % (11.6-14.8); White Blood Cell Count 5.7 X10^3/uL (4.5-11.0)
[2022-05-06 07:26] LABS: Microcytosis 2+
[2022-05-06 07:32] LABS: BUN Creatinine Ratio 19.4 (6-22); Blood Urea Nitrogen 7 mg/dL (9-20); Calcium 8.1 mg/dL (8.4-10.2); Carbon Dioxide 34 mmol/L (22-32); Chloride 103 mmol/L (98-107); Estimated Glomerular Filt Rate > 60 mL/min (>60); Glucose 83 mg/dL (80-110); HEMOLYSIS < 15 (0-50); Potassium 3.7 mmol/L (3.4-5.1); Sodium 138 mmol/L (137-145)
[2022-05-06 07:46] LABS: Procalcitonin 0.06 ng/mL (<0.5)
[2022-05-06] MEDS: THIAMINE 100 MG TABLET PO (09:38)
[2022-05-06] MEDS: MULTIVITAMIN 1 TABLET 1 TAB PO (09:38)
[2022-05-06] MEDS: CLOPIDOGREL 75 MG TABLET PO (09:38)
[2022-05-06] MEDS: FOLIC ACID 1 MG TABLET PO (09:39)
[2022-05-06] MEDS: ASPIRIN EC 81 MG TABLET PO (09:39)
[2022-05-06] MEDS: SERTRALINE 50 MG TABLET 100 MG PO (09:39)
[2022-05-06] MEDS: ENOXAPARIN 40 MG/0.4 ML SYRINGE SUBCUT (09:39)
[2022-05-06] MEDS: cefTRIAXone 1,000 MG in SODIUM CHLORIDE 0.9% 100 ML 200 MG IV (11:00)
[2022-05-06] MEDS: ALBUTEROL 2.5 MG/3 ML NEB (ADULT) INH (12:28)
--- NOTE | 2022-05-06 12:38 | CM.DPC ---
DCP Cont: Per MD, pt still not medically stable and now with pneumonia as well from likely aspiration event and ST following closely for needs and recommendations. Per RN, pt continues to not be fully alert and oriented and not yet appropriate for PT orders for eval yet this morning. Plan: SW to follow closely later today to determine if pt starting to clear more to be more medically appropriate for d/c planning discussion and PT orders and eval to determine discharge planning needs. CARLO Leonardo
[2022-05-06] MEDS: AZITHROMYCIN 500 MG in DEXTROSE 5% IN WATER 250 ML 250 MG IV (13:20)
--- NOTE | 2022-05-06 14:20 | P.PN_ITS ---
Subjective Subjective Date Patient Seen: 05/06/22 Interval history: More alert today after stopping methadone. complains of pain all over and states he is withdrawing. Tachycardia and BP are much improved. He is no longer diaphoretic. Exam Vital Signs (past 8 hours): - 05/06/22 08:13 05/06/22 09:50 05/06/22 10:00 Temperature 99.8 F H Pulse Rate 64 63 Respiratory Rate 18 14 Blood Pressure 158/76 H Pulse Oximetry 94 94 Oxygen Delivery Method Room Air Room Air Oxygen Flow Rate 0 05/06/22 12:45 Temperature 98.0 F Pulse Rate 66 Respiratory Rate 18 Blood Pressure 134/69 Pulse Oximetry 94 Oxygen Delivery Method Oxygen Flow Rate 0 Oxygen Delivery Method Room Air Oxygen Flow Rate 0 Narrative Exam Narrative: General:?disheveled, chronically ill appearing male, no acute distress, sleeping but easily arousable. HEENT:? Normocephalic, atraumatic, extraocular muscles intact, oral pharynx is clear and mucous membranes are moist. Poor dentition. Lungs:? CTA b/l no wheezing rhonchi or rales. Cardio:?RRR no m/r/g. Abdomen: S NT ND. Extremities: No edema or joint effusions. No cyanosis or clubbing. Neuro:? Alert, very soft spoken but responds appropriately to questions today. Much improved mentation compared to prior exams. No tremulous. Objective Labs Result Diagrams: 05/06/22 06:25 05/06/22 06:25 Labs: Laboratory Results - last 24 hr 05/06/22 05/06/22 05/06/22 06:25 06:25 06:25 WBC 5.7 RBC 4.41 L Hgb 9.5 L Hct 29.9 L MCV 67.9 L MCH 21.7 L MCHC 31.9 RDW 19.4 H Plt Count 205 Neut % (Auto) 61.3 Lymph % (Auto) 29.3 [place] % (Auto) 7.2 Eos % (Auto) 1.9 L Baso % (Auto) 0.3 Neut # (Auto) 3500 Lymph # (Auto) 1700 [place] # (Auto) 400 Eos # (Auto) 100 Baso # (Auto) 0 RBC Morphology See below Microcytosis 2+ H Sodium 138 Potassium 3.7 Chloride 103 Carbon Dioxide 34 H BUN 7 L Creatinine 0.36 L Estimated GFR > 60 BUN/Creatinine Ratio 19.4 Glucose 83 Calcium 8.1 L Procalcitonin 0.06 [facility] Medical History (Updated 05/02/22 @ 00:00 by ) Asthma Chronic back pain greater than 3 months duration Closed intertrochanteric fracture of left femur Depression Drug abuse, IV History of CVA (cerebrovascular accident) Surgical History History of hernia repair Family History Father Unknown family medical history Mother No problems noted. Grandmother Myocardial infarction Grandfather No problems noted. Social History household members: friend(s) Smoking Status: Current some day smoker alcohol intake: current Assessment & Plan Assessment & Plan narrative: 1. Metabolic encephalopathy with probable multi-substance withdrawal, most likely opiate withdrawal ?- suspect polysubstance withdrawal, definitely opiate with possible EtOH given presentation ?- methadone given initially but now discontinued with improvement in mentation. Continue ativan per [facility] protocol. Possibly received outside illicit substances overnight 05/01. Visitors now heavily restricted. ?- MRI was negative for CVA. ?- PT/ OT once mental status is improved, will plan for tomorrow. 2. Acute respiratory failure with hypoxia, bacterial pneumonia due to group A strep. ?- suspect secondary to aspiration pneumonia or possible pneumonitis. Sptum cultures with group A strep. ?- chest xray with mild congestive appearance but could be aspiration given clinical picture. Doubt CHF given recent TTE with normal Ef and no signs of diastolic dysfunction. ?- started on ceftriaxone and azithromycin for possible bacterial pneumonia, with increased secretions noted today and need for supplemental O2. ?- sputum cultures as noted above. ?- RT eval and treatments appreciated. prn albuterol started. ?- consider speech eval depending on mental status improvements. -continue IV antibiotics, can discontinue azithro today ? 3. Hypertension, improved ?- likely due to withdrawal, will continue to monitor. 4. HLD ?- continue statin 5. Polysubstance IV abuse ?- management as noted above. Dispo: will depend on PT/OT evaluations. Time Spent With Patient Critical Care time: I spent a total of [] minutes of critical care time on this patient's care today; this time is exclusive of procedural time. Quality VTE Deep Vein Thrombosis/Pulmonary Embolism Present on Admission: No
[2022-05-06] MEDS: ATORVASTATIN 20 MG TABLET 40 MG PO (20:45)
[2022-05-07] VITALS (13 sets, daily range): BP systolic 121–160; BP diastolic 67–82; PULSE 54–85; RESP 14–20; TEMP 35.6–36.6; O2SAT 93–96
[2022-05-07] MEDS: SODIUM CHLORIDE 0.9% 1,000 ML 100 ML IV ×3 (00:17→19:25)
[2022-05-07] MEDS: LORazepam 1 MG TABLET PO ×2 (00:34→16:09)
[2022-05-07] MEDS: ACETAMINOPHEN 325 MG TABLET 650 MG PO ×2 (03:38→17:53)
[2022-05-07 06:36] LABS: Add Manual Diff / Slide Review NO; Basophils Absolute Auto 0 /uL (0-100); Basophils Percent Auto 0.2 % (0-2); Eosinophils Absolute Auto 100 /uL (0-450); Eosinophils Percent Auto 2.1 % (2-4); Hematocrit 32.1 % (41-53); Hemoglobin 10.5 g/dL (13.5-17.5); Lymphocytes Absolute Auto 1400 /uL (1100-4500); Lymphocytes Percent Auto 24.9 % (25-40); Mean Corpuscular HGB Conc 32.8 % (30-36); Monocytes Absolute Auto 500 /uL (0-900); Monocytes Percent Auto 8.2 % (3-14); Neutrophils Absolute Auto 3600 /uL (1500-7000); Neutrophils Percent Auto 64.6 % (50-75); Platelet Count 225 X10^3/uL (150-400); Red Blood Cell Count 4.79 X10^6/uL (4.5-5.9); White Blood Cell Count 5.5 X10^3/uL (4.5-11.0)
[2022-05-07 06:47] LABS: BUN Creatinine Ratio 13.2 (6-22); Blood Urea Nitrogen 5 mg/dL (9-20); Calcium 7.8 mg/dL (8.4-10.2); Carbon Dioxide 35 mmol/L (22-32); Chloride 100 mmol/L (98-107); Estimated Glomerular Filt Rate > 60 mL/min (>60); Glucose 90 mg/dL (80-110); HEMOLYSIS < 15 (0-50); Potassium 3.4 mmol/L (3.4-5.1); Sodium 137 mmol/L (137-145)
[2022-05-07 07:12] LABS: Anisocytosis 1+; Hypochromasia 1+; Microcytosis 1+
[2022-05-07] MEDS: ENOXAPARIN 40 MG/0.4 ML SYRINGE SUBCUT (08:44)
[2022-05-07] MEDS: MULTIVITAMIN 1 TABLET 1 TAB PO (08:44)
[2022-05-07] MEDS: ASPIRIN EC 81 MG TABLET PO (08:44)
[2022-05-07] MEDS: SERTRALINE 50 MG TABLET 100 MG PO (08:44)
[2022-05-07] MEDS: CLOPIDOGREL 75 MG TABLET PO (08:44)
[2022-05-07] MEDS: FOLIC ACID 1 MG TABLET PO (08:44)
--- NOTE | 2022-05-07 09:17 | DIET.CONS ---
Addendum entered by Michaela Alicea 05/07/22 12:48: Pt cleared by IMAGING SPECIALIST for puree/thin diet. Pt ate 5 bites enthusiastically c 1:1 help, however, expressed satiety with 10% tray consumed. Pt less lethargic today, however, still speaking in whispered one word phrases. RD to formally consult Saturday morning once pt has chance to consume 1-2 more dysphagia meals. Original Note: Dietary Consultation Note Admission Date: 05/01/2022 04:28 Assessment: Pt on clear liquid diet x3d secondary to lethargy. Strongly recc advancing diet as clear liquid diet not nutritionally adequate for this low body weight individual. Recc full liquid diet if IMAGING SPECIALIST has concerns c solid PO textures, otherwise most liberal diet which is safe for pt to consume per assessment. Electronically Signed by: Michaela Alicea 05/07/22 09:17 Clinical Diet[address] [id number]
[2022-05-07] MEDS: POTASSIUM CHLORIDE 20 MEQ TAB 40 MEQ PO (09:33)
--- NOTE | 2022-05-07 11:05 | PT.IIE ---
Current Diagnoses Cerebral infarction, unspecified (05/01/22) Surgical History (Last Reviewed 05/01/22 @ 04:53 by JONATHAN Sampson) History of hernia repair Medical History (Last Updated 05/01/22 @ 05:11 by JONATHAN Sampson) Asthma Chronic back pain greater than 3 months duration Closed intertrochanteric fracture of left femur Depression Drug abuse, IV History of CVA (cerebrovascular accident) Physical Therapy Inpatient Evaluation/Re-Eval M1 PT/OT-IP Prior Functional Status Start: 05/07/22 09:18 Freq: NEEDED Status: Active Protocol: Document 05/07/22 12:13 CGR (Rec: 05/07/22 12:22 CGR [id number]) Medical Review Prior Functional Status Medical History Reviewed Yes Communication Pt can be difficult to understand at times but is able to communicate verbally. Mobility and Gait Prior to recent set backs, pt was MOD I using his 4ww, crutches, or hurricane for mobility in the home and 4ww for mobility outside of the home. In the last few weeks pt has needed support with mobility and has required someone to carry him up the stairs into his home. Activities of Daily Living and IADL's Prior to recent set backs, pt was IND with all ADLs. In the last few weeks pt has started needing assist with bathing, dressing, feeding, grooming, and toileting. Social History Household Members friend(s) Living Arrangements Mobile home Number of Floors (Floors) One Floor Number of Stairs To Enter/Railing? 4 steps to get into the mobile home with railings. Home Environment High Toilet,Walk in Shower Home Equipment Four Wheel Walker,Crutches Additional Social History Comment Pt lives with his roommate Bran and Bran's grilfriend. They have been assisting pt with all needs in the past few weeks. Pt also has a caregiver that just started coming twice a week for 4 hours a day who has been helping with all needs. M2 PT-IP Current Condition Start: 05/07/22 09:18 Freq: NEEDED Status: Active Protocol: Document 05/07/22 11:05 AW (Rec: 05/07/22 12:44 AW [id number]) Physical Therapy Current Condition Current Condition Evaluation Date 05/07/22 Treatment Diagnosis metabolic encephalopathy; polysubstance withdrawal; impaired mobility Onset Date 04/30/22 M3 PT-IP Subjective Start: 05/07/22 09:18 Freq: NEEDED Status: Active Protocol: Document 05/07/22 11:05 AW (Rec: 05/07/22 12:44 AW [id number]) Subjective Physical Therapy Visit Type Type Initial Evaluation Visit Start Time 10:33 Visit Stop Time 11:05 Total Visit Minutes 32 Notes Co-eval with OT due to pt's need for increased level of assist. Number of LEAD SCIENTIST Visits 0 Physical Therapy Visit Comments Patient Comments Pt nods consent to therapy evaluations. He is lethargic but does attempt to communicate in short sentences with weak voice. Therapy Pain Assessment Pain When Pain Assessed During Mobility Location Generalized Intensity 5 Scale Used Numeric (0 - 10) Pain Behaviors Facial Grimacing,Wincing Pain Management Techniques Distraction,Modification of Treatment,Re-positioning M4 PT-IP Mobility and Gait Start: 05/07/22 09:18 Freq: NEEDED Status: Active Protocol: Document 05/07/22 11:05 AW (Rec: 05/07/22 13:30 AW [id number]) PT-Bed Mobility Assessment Supine to Sit Supine to Sit Moderate Assistance,1 Person Assistance Scooting Scooting to Edge of Bed Minimal Assistance PT-Transfer Assessment Sit to and From Stand Sit to and from Stand Moderate Assistance,1 Person Assistance,Use of Upper Extremities Equipment Transfer Assistive Device Gait Belt,Front Wheeled Walker Orthotic/Prosthetic Devices or Brace: No Transfers Transfer Destination Chair Transfer Technique Stand Step Pivot Transfer Ability Level of Assist Moderate Assistance,2 Person Assistance,Use of Upper Extremities Comments Mobility Comments Pt was lying in bed with seizure pads in place as PT and OT arrived. Supine BP was 147/81 HR 65. With bed flat, pt completed supine to sit mod A x 1 and max cues. He had limited use of his right arm. He leaned laterally and posteriorly with poor trunk control, needing min A to sit upright. He stood from the bed mod A and needed mod A x 2 to transfer to the chair using FWW. He was positioned there with call light in reach. Pt was left with OT for further assessment. Gait Assessment Gait Gait Assistance Required: Moderate Assistance,2 Person Assist Distance (Feet) 5 Assistive Devices Assistive Device Gait Belt,Front Wheeled Walker Orthotic/Prosthetic Devices or Brace: No Gait Deviations General Gait Pattern Ataxic,Decreased Stride Length ,Decreased Feet Clearance, Flexed Trunk,Lateral Trunk Lean Factors Limiting Gait Function Factors Limiting Gait Function Decreased Activity Tolerance, Decreased Strength,Difficulty Following Directions, Incoordination,Pain,Poor Balance,Poor Safety Awareness Comments Gait Comments Steps taken during transfer only. See mobility comments for details. Stair Climbing Assessment Comments Stair Climbing Comments Not assessed. PT-Balance Assessment Sitting Balance and Reactions Static Sitting Balance Ability Poor Dynamic Sitting Balance Ability Poor Standing Balance and Reactions Static Standing Balance Ability Poor Dynamic Standing Balance Ability Poor Device Used FWW M5 PT-IP Objective Assessments Start: 05/07/22 09:18 Freq: NEEDED Status: Active Protocol: Document 05/07/22 11:05 AW (Rec: 05/07/22 13:30 AW [id number]) Orientation Orientation/Cognition Level of Alertness Lethargic Orientation Name,Month,Place Safety Awareness Decreased Safety Awareness Gross Range of Motion Lower Extremity ROM Assessment Within Functional Limits Strength Lower Extremity Strength Assessment Bilaterally Impaired Comments Strength Comments R grossly 3-/5. L grossly 3+/5 Coordination Assessment Gross Coordination Gross Coordination Impaired Assessment Finger to Nose Test Activity Impossible Foot Tapping Test Minimal Impairment Coordination Comments Pt limited by BUE weakness with UE coordination testing. Sensation Assessment Sensation Gross Sensation WNL Muscle Tone Muscle Tone WNL Yes M6 PT-IP Treatment Start: 05/07/22 09:18 Freq: NEEDED Status: Active Protocol: Document 05/07/22 11:05 AW (Rec: 05/07/22 13:30 AW [id number]) Physical Therapy Treatment Education Education Provided Safety M7 PT-IP Assessment and Plan Start: 05/07/22 09:18 Freq: NEEDED Status: Active Protocol: Document 05/07/22 11:05 AW (Rec: 05/07/22 13:30 AW [id number]) PT Summary Assessment and Plan Potential Rehabilitation Potential Fair Status of Condition at Evaluation Evolving Summary Impairments Strength,Balance,Coordination, Cognition,Bed Mobility, Transfers,Gait Assessment Summary Fahad is a 62 yo man admitted with metabolic encephalopathy and polysubstance withdrawal symptoms. History is significant for CVA in 2016. He reports modified independent mobility at baseline using hurry cane or 4WW. Pt presents with profound weakness generally; upper extremities and right side are generally more affected than lower extremities and left side. On assessment, he was able to transfer using FWW with mod assist x 2. He was lethargic throughout and needed constant cues to attend to task as well as hand over hand assist to use right hand during mobility. Pt would certainly benefit from continued acute PT as well as subacute PT either at SNF or at home with home health. Understanding pt will be difficult to place due to history, pt most likely to discharge home with assist and home health PT. Goals Bed Mobility Goal Contact Guard Assistance Transfer Goal Standby Assistance,Front Wheeled Walker Gait Goal Standby Assistance,Front Wheel Walker Gait Distance 150 Other Goals up/down 4 steps with rails SBA - improve transfers and gait to SBA with 4WW Days to Meet Goals 10 Frequency of Treatment Frequency Of Treatment Once a Day Treatment Plan Physical Therapy Treatment Plan Bed Mobility Training,Transfer Training,Gait Training, Therapeutic Exercise,Balance Retraining,Discharge Planning, Hot or Cold Pack,Neuromuscular Re-ed,Coordination Retraining Precautions Other Precautions seizure precautions; falls risk Recommendations To Nursing Amount of Assist Needed 2 Person Assist Discharge Recommendations PT Discharge Recommendations Home with 17/06 Assist Available,Home Health,SNF Rehab,Home vs SNF Equipment Needed for Home Before FWW if unsafe with 4WW Discharge Transportation Needs at Discharge Private Vehicle,Wheelchair/ Cabulance
--- NOTE | 2022-05-07 11:07 | OT.IP.EVAL ---
Current Diagnoses Cerebral infarction, unspecified (05/01/22) Past Medical History (Last Updated 05/01/22 @ 05:11 by JONATHAN Sampson) Asthma Chronic back pain greater than 3 months duration Closed intertrochanteric fracture of left femur Depression Drug abuse, IV History of CVA (cerebrovascular accident) Surgical History (Last Reviewed 05/01/22 @ 04:53 by JONATHAN Sampson) History of hernia repair Occupational Therapy Inpatient Evaluation/Re-Eval M1 PT/OT-IP Prior Functional Status Start: 05/07/22 09:18 Freq: NEEDED Status: Active Protocol: Document 05/07/22 12:13 CGR (Rec: 05/07/22 12:22 CGR [id number]) Medical Review Prior Functional Status Medical History Reviewed Yes Communication Pt can be difficult to understand at times but is able to communicate verbally. Mobility and Gait Prior to recent set backs, pt was MOD I using his 4ww, crutches, or hurricane for mobility in the home and 4ww for mobility outside of the home. In the last few weeks pt has needed support with mobility and has required someone to carry him up the stairs into his home. Activities of Daily Living and IADL's Prior to recent set backs, pt was IND with all ADLs. In the last few weeks pt has started needing assist with bathing, dressing, feeding, grooming, and toileting. Social History Household Members friend(s) Living Arrangements Mobile home Number of Floors (Floors) One Floor Number of Stairs To Enter/Railing? 4 steps to get into the mobile home with railings. Home Environment High Toilet,Walk in Shower Home Equipment Four Wheel Walker,Crutches Additional Social History Comment Pt lives with his roommate Bran and Bran's grilfriend. They have been assisting pt with all needs in the past few weeks. Pt also has a caregiver that just started coming twice a week for 4 hours a day who has been helping with all needs. M2 OT-IP Current Condition Start: 05/07/22 12:13 Freq: Status: Active Protocol: Document 05/07/22 12:13 CGR (Rec: 05/07/22 12:37 CGR [id number]) Occupational Therapy Current Condition Current Condition Evaluation Date 05/07/22 Treatment Diagnosis generalized weakness, hx IV drug use, R CVA 2015 Diagnosis Onset Date 05/01/22 M3 OT- IP Subjective and Pain Start: 05/07/22 12:13 Freq: Status: Active Protocol: Document 05/07/22 12:13 CGR (Rec: 05/07/22 12:37 CGR [id number]) OT- Subjective Occupational Therapy Visit Type Type Initial Evaluation Visit Start Time 10:36 Visit Stop Time 11:07 Total Visit Minutes 31 Notes Co-eval with P.T. OT Pain Assessment Pain When Pain Assessed At Rest Pain Present Pain Present Pain Reported Location Generalized Intensity 5 Scale Used Numeric (0 - 10) Management Techniques Modification of Treatment,Re- positioning M4 OT- IP ADL's Start: 05/07/22 12:13 Freq: Status: Active Protocol: Document 05/07/22 12:13 CGR (Rec: 05/07/22 12:37 CGR [id number]) OT [id number] Comments OT Self-Feeding Comments Not meal time but pt is unlikely to be able to feed self based on arm strength OT ADL-Grooming General Evaluation Grooming Ability Standby Assistance Areas Needing Assistance Retrieving/Set-up of Grooming Items,Face Washing Comments OT Grooming Comments seated EOB OT ADL-Oral Care Comments Oral Care Comments not performed, pt states he has no teeth. OT ADL-Dressing General Eval Lower Body Dressing Ability Moderate Assistance,Maximum Assistance Areas Needing Assistance Underpants/Brief Comments OT Dressing Comments Assisted pt with threading brief with pt's active participation but still needed mod to max assist to perform OT ADL-Toileting General Evaluation Toileting Ability Total Assistance Areas Needing Assistance Manage Clothing,Perform Perineal Hygiene Comments OT Toileting Comments Pt with soilded brief when OT entered. Donned clean brief and removed dirty upon standing. Pt needed assist with peircare and pulling up new brief. OT ADL-Bathing Comments OT Bathing Comments not performed M5 OT- IP IADL's Start: 05/07/22 12:13 Freq: Status: Active Protocol: Document 05/07/22 12:13 CGR (Rec: 05/07/22 12:37 CGR [id number]) OT-Instrumental Activities of Daily Living Deficits IADL Deficits Identified Deficits Home Safety Awareness Awareness of Need for Assistance at Home Decreased Awareness Ability to Problem Solve Emergency Unable to Problem Solve Situations Medication Management Medication Management Comments Concerns about pt's ability to perform consistently Money Management Money Management Comments Concerns about pt's ability to perform consistently Meal Preparation Meal Preparation Comments Concerns about pt's ability to perform consistently Shank Rander Shank Rander Comments Concerns about pt's ability to perform consistently M6 OT- IP Functional Cognition Start: 05/07/22 12:13 Freq: Status: Active Protocol: Document 05/07/22 12:13 CGR (Rec: 05/07/22 12:37 CGR [id number]) Cognitive Factors Limiting Selfcare Function Cognitive Ability Level of Alertness Alert Patient Orientation Name,Age,Birthday,Month,Year, Place,Situation Attention Span Ability Capable of Focused Attention, Unable to Sustain Attention Ability to Follow Commands Able to Follow One Step Commands with Increased Time, Able to Follow One Step Commands with Repetition Cognitive Comments Cognitive Assessment Comments Pt may benefit from formal cognitive testing as he further clears. OT- Vision and Hearing OT- Hearing Assessment OT- Hearing Assessment WFL OT- Vision Assessment Occular Pursuits WFL Visual Convergence Impaired Vision Assessment Comments Pt's right eye diverts to the right with convergence. M7 OT- IP Mobility and Balance Start: 05/07/22 12:13 Freq: Status: Active Protocol: Document 05/07/22 12:13 CGR (Rec: 05/07/22 12:37 CGR [id number]) OT- Bed Mobility Assessment Supine to Sit Supine to Sit Assist Moderate Assistance,1 Person Assistance Scooting Scooting to Edge of Bed Moderate Assistance,1 Person Assistance OT-Transfer Assessment Sit to and From Stand Sit to and from Stand Moderate Assistance,1 Person Assistance Transfers Transfer Ability Moderate Assistance,2 Person Assistance Technique Transfer Destination Bed,Chair Transfer Technique Stand Step Pivot Devices Transfer Assistive Devices Gait Belt,Front Wheeled Walker Comments Mobility Comments 2 person mod assist for transfer. Pt was able to take steps with assist. OT- Balance Assessment Sitting Balance and Reactions Static Sitting Balance Ability Poor Dynamic Sitting Balance Ability Poor M8 OT- IP Objective Assessments Start: 05/07/22 12:13 Freq: Status: Active Protocol: Document 05/07/22 12:13 CGR (Rec: 05/07/22 12:37 CGR [id number]) OT Gross Range of Motion Upper Extremity Range of Motion ROM Impairments AAROM WFL OT Strength Upper Extremity Strength Assessment Bilaterally Impaired Comments Strength Comments R weaker than L R grossly 2/5 L grossly 2+ to 3-/5 OT- Coordination Assessment Upper Extremity Finger to Nose Test Bilateral UE Impaired Finger Tapping Test Bilateral UE Impaired OT-Muscle Tone Assessment Muscle Tone WNL Yes OT Sensation Assessment Edema Edema Absent M9 OT- IP Assessment and Plan Start: 05/07/22 12:13 Freq: Status: Active Protocol: Document 05/07/22 12:13 CGR (Rec: 05/07/22 12:37 CGR [id number]) OT Summary Assessment and Plan Potential Rehabilitation Potential Good Analytic Complexity at Evaluation High Summary OT Impairments Pain,Strength,Balance, Coordination,Functional Cognition,Functional Mobility, Self-Feeding,Grooming,Dressing ,Toileting,Bathing,Toilet Transfers,Shower Transfers, Activity Tolerance Progress Towards Goals Slow Progress due to Medical Issues Assessment Summary Pt presents as a high complexity evaluation s/p admit for generalized weakness and detox symptoms. Pt has a hx of IV poly substance use and 2016 CVA with R sided weakness. Pt today is profoundly weak throughout BUE but was able to transfer with 2 person assist. Pt was agreeable to therapy and participatory in all activities that were requested of him. He fatigued quickly and was left sitting up in chair at end of session with call button within reach and all needs at time met. Chair fall alarm armed. Pt will benefit from SNF upon discharge. Goals Self-Feeding Goal Independent Grooming Goal Independent Dressing Goal Independent Toileting Goal Independent Bathing Goal Independent Toilet Transfer Goal Independent Shower Transfer Goal Independent Days to Meet Goals 30 Frequency of Treatment Frequency Of Treatment Once a Day Treatment Plan OT Treatment Plan ADL Training,Functional Cognition Training,Functional Mobility,Neuromuscular Re- education,Therapeutic Exercises,Patient/Family Education,Discharge Planning Other Treatment Recommendations and Next sitting balance with ADLs Treatment Focus Discharge Recommendations OT Discharge Recommendations SNF Rehab Transportation Needs at Discharge Wheelchair/Cabulance
--- NOTE | 2022-05-07 11:19 | ST.IPDYTX ---
Visit Care Team Role Provider Type Kenney Joshi MD Family Provider Non-Staff Primary Care Provider Specialty: Family Practice Address: [address] , [address], [place], [address] Email: Richard Hannon DO Emergency Provider Physician Referring Provider Specialty: Emergency Medicine Address: [address] [place] [address], [id number] Email: [email or web address] JONATHAN Sampson Admit Provider Physician Attending Provider Specialty: Internal Medicine Address: [address] [place] [address], [id number] Email: [email or web address] Dysphagia Treatment SL[facility] [employer] Clinical Instructor Line Start: 05/07/22 11:09 Freq: Status: Active Protocol: Document 05/07/22 11:09 HERMINIA (Rec: 05/07/22 11:09 HERMINIA [id number]) Clinical Instructor Signature Clinical Instructor Clinical Instructor Yes SLIVER LAPPER Dysphagia Treatment Start: 05/07/22 09:45 Freq: Status: Active Protocol: Document 05/07/22 09:45 EK (Rec: 05/07/22 10:16 EK [id number]) Dysphagia Treatment Session Time Visit Start Time 09:00 Visit Stop Time 09:20 Total Visit Minutes 20 Setting Assessment Location Acute Care Visit Type Note Type Treatment Note Next Note Type Next Note Type Treatment Note Patient Information Identification Type Name,ID Wristband Subjective Observations Pt was semi-reclined in bed upon SLIVER LAPPER and [facility] [employer] internist medical doctor md arrival. His eyes were closed, but he aroused and opened them upon request from SLIVER LAPPER. Pt appeared fatigued throughout the session as evidenced by closing eyes and overall weakness. Pt was repositioned to upright for PO trials. Treatment Liquids Trialed Thin Solids Trialed Puree Administration Type Tea Spoon,Straw,Dependent Feeding Oral Strategies Upright at 90 degrees Pharyngeal Strategies Sitting Upright (90 deg),Chin Tuck Treatment Activities Thin liquids with straw and puree textures (i.e. applesauce and yogurt) were trialed. Pt responded to directions for slow intake and small sips/bites. Pt once reported that he felt the water went down quickly. Chin tuck was trialed to assist with thin liquid management and appeared to be beneficial. Throughout all trials, no overt signs of penetration/ aspiration were noted, however silent aspiration cannot be ruled out. The pt's voice was very quiet, mostly speaking in whispers but was elicited through sustained ah and counting. Also of note, when asked to take several deep breaths, a wet quality was noted for inhalation which diminished over the course three breaths. By the end of the session, the pt brought the spoon to his mouth with [id number] assistance. Pt should be encouraged to self-feed as much as possible to increase overall awareness and strength while eating. Assessment Patient Response to Treatment Good Rehab Potential Good Assessment of Improvement Pt was more alert and followed directions more than compared to previous attempts of treatment. Pt's diet level can be updated to puree. Will continue to assess pt's swallow safety and upgrade diet as indicated. Diet Recommendations Recommendations Upgrade Diet Order Liquids Order Thin Diet Order Dysphagia Blenderized Medication Recommendations Whole in Carrier Additional Dietary Needs Single Sips,Controlled Sips,No Straws,1:1 Assistance, Encourage to Self-Feed, Reminders to Use Strategies Aspiration Precautions Recommended Precautions Upright at 90 Degrees,Frequent Rest Periods,Small Bites/Sips ,Chin Tuck,Check for Pocketing Treatment Plan Placement Recommendation after Discharge [facility] Facility Appropriate for Continued Therapy Yes Therapy Recommendations Continue to see 1x daily over course of hospital stay to monitor progress and further assess/treat deficits as needed. Dysphagia Goals Pt to participate in ongoing evaluation of swallow safety with diet advancement as appropriate. Pt will safely tolerate least restrictive diet to meet his nutrition and hydration needs
[2022-05-07] MEDS: cefTRIAXone 1,000 MG in SODIUM CHLORIDE 0.9% 100 ML 200 MG IV (11:44)
[2022-05-07] MEDS: ALBUTEROL 2.5 MG/3 ML NEB (ADULT) INH (12:02)
--- NOTE | 2022-05-07 13:20 | CM.DPC ---
Addendum entered by Roya More R.N. 05/07/22 13:48: Maggi from [facility] called DCP to update on referral. At this time, LCV is denied due to his history of drug abuse. DCP thankful for the call. Roya More RN/GISSELLE Original Note: DCP Cont: DCP made referrals for SNF to [facility] and [facility] due to recommendations from OT and ST. RN attempted to speak with the patient this afternoon but was sleeping. DCP to try again later this afternoon. Roya More RN/AUTUMNP
--- NOTE | 2022-05-07 14:52 | PM.PN.1 ---
Subjective Subjective Date Patient Seen: 05/07/22 Interval history: More alert today. Complains of chronic pain in his legs. No chest pain. Does feel short of breath. 2 person assist with PT today. Exam Vital Signs (past 8 hours): - 05/07/22 08:00 05/07/22 11:56 05/07/22 12:02 Temperature 97.8 F 96.1 F L Pulse Rate 54 L 63 63 Respiratory Rate 17 17 18 Blood Pressure 154/74 H 141/81 H Pulse Oximetry 95 96 93 Oxygen Delivery Method Room Air Oxygen Flow Rate 0 0 Oxygen Delivery Method Room Air Oxygen Flow Rate 0 Narrative Exam Narrative: General:?disheveled, chronically ill appearing male, no acute distress, sleeping but easily arousable. HEENT:? Normocephalic, atraumatic, extraocular muscles intact, oral pharynx is clear and mucous membranes are moist. Poor dentition. Lungs:? CTA b/l no wheezing rhonchi or rales. Cardio:?RRR no m/r/g. Abdomen: S NT ND. Extremities: No edema or joint effusions. No cyanosis or clubbing. Neuro:? Alert, very soft spoken but responds appropriately to questions today. Much improved mentation compared to prior exams. No tremulous. Objective Labs Result Diagrams: 05/07/22 05:38 05/07/22 05:38 Labs: Laboratory Results - last 24 hr 05/07/22 05/07/22 05:38 05:38 WBC 5.5 RBC 4.79 Hgb 10.5 L Hct 32.1 L MCV 67.0 L MCH 22.0 L MCHC 32.8 RDW 20.0 H Plt Count 225 Neut % (Auto) 64.6 Lymph % (Auto) 24.9 L [place] % (Auto) 8.2 Eos % (Auto) 2.1 Baso % (Auto) 0.2 Neut # (Auto) 3600 Lymph # (Auto) 1400 [place] # (Auto) 500 Eos # (Auto) 100 Baso # (Auto) 0 RBC Morphology Not Reportable Hypochromasia 1+ H Anisocytosis 1+ H Microcytosis 1+ H Sodium 137 Potassium 3.4 Chloride 100 Carbon Dioxide 35 H BUN 5 L Creatinine 0.38 L Estimated GFR > 60 BUN/Creatinine Ratio 13.2 Glucose 90 Calcium 7.8 L [facility] Medical History (Updated 05/02/22 @ 00:00 by ) Asthma Chronic back pain greater than 3 months duration Closed intertrochanteric fracture of left femur Depression Drug abuse, IV History of CVA (cerebrovascular accident) Surgical History History of hernia repair Family History Father Unknown family medical history Mother No problems noted. Grandmother Myocardial infarction Grandfather No problems noted. Social History household members: friend(s) Smoking Status: Current some day smoker alcohol intake: current Assessment & Plan Assessment & Plan narrative: 1. Metabolic encephalopathy with probable multi-substance withdrawal, most likely opiate withdrawal ?- suspect polysubstance withdrawal, definitely opiate with possible EtOH given presentation ?- methadone given initially but now discontinued with improvement in mentation. Continue ativan per [facility] protocol. Possibly received outside illicit substances overnight 05/01. Visitors now heavily restricted. ?- MRI was negative for CVA. ?- PT/ OT to continue, 2 person assist. 2. Acute respiratory failure with hypoxia, bacterial pneumonia due to group A strep. ?- suspect secondary to aspiration pneumonia or possible pneumonitis. Sputum cultures with group A strep. ?- chest xray with mild congestive appearance but could be aspiration given clinical picture. Doubt CHF given recent TTE with normal Ef and no signs of diastolic dysfunction. ?- started on ceftriaxone and azithromycin for possible bacterial pneumonia, with increased secretions noted today and need for supplemental O2. ?- sputum cultures as noted above. ?- RT eval and treatments appreciated. prn albuterol started. ?- consider speech eval depending on mental status improvements. -continue IV antibiotics, discontinued azithro ? 3. Hypertension, improved ?- likely due to withdrawal, will continue to monitor. 4. HLD ?- continue statin 5. Polysubstance IV abuse ?- management as noted above. Dispo: home vs SNF, though he may be a difficult placement. He is a 2 person assist with PT currently. Time Spent With Patient Critical Care time: I spent a total of [] minutes of critical care time on this patient's care today; this time is exclusive of procedural time. Quality VTE Deep Vein Thrombosis/Pulmonary Embolism Present on Admission: No
[2022-05-07] MEDS: LORazepam 2 MG/ML INJ IV ×2 (18:01→20:53)
[2022-05-07] MEDS: ATORVASTATIN 20 MG TABLET 40 MG PO (20:53)
[2022-05-08] VITALS (11 sets, daily range): BP systolic 137–167; BP diastolic 69–90; PULSE 59–90; RESP 16–20; TEMP 36.2–37; O2SAT 94–97
[2022-05-08] MEDS: SODIUM CHLORIDE 0.9% 1,000 ML 100 ML IV ×2 (04:26→18:47)
[2022-05-08 06:38] LABS: BUN Creatinine Ratio 17.1 (6-22); Blood Urea Nitrogen 6 mg/dL (9-20); Carbon Dioxide 30 mmol/L (22-32); Chloride 108 mmol/L (98-107); Estimated Glomerular Filt Rate > 60 mL/min (>60); Glucose 81 mg/dL (80-110); HEMOLYSIS < 15 (0-50); Sodium 138 mmol/L (137-145)
[2022-05-08 06:44] LABS: Add Manual Diff / Slide Review NO; Basophils Absolute Auto 0 /uL (0-100); Basophils Percent Auto 0.2 % (0-2); Eosinophils Absolute Auto 100 /uL (0-450); Hematocrit 31.3 % (41-53); Hemoglobin 10.3 g/dL (13.5-17.5); Lymphocytes Absolute Auto 1400 /uL (1100-4500); Lymphocytes Percent Auto 23.9 % (25-40); Mean Corpuscular HGB Conc 32.8 % (30-36); Mean Corpuscular Hemoglobin 22.1 PG (26-34); Mean Corpuscular Volume 67.5 fL (80-100); Monocytes Absolute Auto 500 /uL (0-900); Monocytes Percent Auto 8.5 % (3-14); Neutrophils Absolute Auto 3800 /uL (1500-7000); Neutrophils Percent Auto 65.4 % (50-75); Platelet Count 215 X10^3/uL (150-400); Red Blood Cell Count 4.64 X10^6/uL (4.5-5.9); Red Cell Distribution Width 19.8 % (11.6-14.8); White Blood Cell Count 5.8 X10^3/uL (4.5-11.0)
[2022-05-08 06:45] LABS: Potassium 2.8 mmol/L (3.4-5.1)
[2022-05-08 07:15] LABS: Anisocytosis 1+; Hypochromasia 1+; Microcytosis 1+
[2022-05-08] MEDS: POTASSIUM CHLORIDE 20 MEQ TAB 40 MEQ PO ×2 (07:54→17:04)
[2022-05-08] MEDS: LORazepam 2 MG/ML INJ IV ×3 (07:55→20:12)
[2022-05-08] MEDS: ACETAMINOPHEN 325 MG TABLET 650 MG PO ×2 (08:04→16:25)
--- NOTE | 2022-05-08 08:09 | CM.DPC ---
Addendum entered by Roya More R.N. 05/08/22 12:39: DCP went to talk to patient bedside this afternoon. Pt was laying in bed and asked to be pulled up. DCP asked RN to assist. DCP asked patient what his current address is and pt mumbled, motor home. Pt shook his head when asked if it was located in [place]. DCP states she has had been trying to get in contact with someone and she was having a difficult time locating anyone. Pt stated to call [facility]. ILP has tried twice to call [facility] to verify address as there is some confusion about him living on [address]. DCP to continue to verify address and send referral to HH agency. P: When patient medically stable, pt to discharge home with HH. Roya More RN/GISSELLE Addendum entered by Roya More R.N. 05/08/22 12:21: Attempted to call Rah, pt friend for updated address. LVM to call back. ADJ Addendum entered by Roya More R.N. 05/08/22 10:45: DCP attempted to call pt emergency contact, Bridgette, to get accurate address for HH. Her number is not in service. Will attempt to ask pt this afternoon. Roya More RN/GISSELLE Original Note: DCP Note Cont: And[facility] @ [facility] has also denied SNF placement for this pt. P: Continue to follow pt case. When medically stable for discharge, pt to go home with HH. Roya More RN/GISSELLE
[2022-05-08] MEDS: MULTIVITAMIN 1 TABLET 1 TAB PO (09:44)
[2022-05-08] MEDS: ASPIRIN EC 81 MG TABLET PO (09:44)
[2022-05-08] MEDS: CLOPIDOGREL 75 MG TABLET PO (09:44)
[2022-05-08] MEDS: ENOXAPARIN 40 MG/0.4 ML SYRINGE SUBCUT (09:45)
[2022-05-08] MEDS: SERTRALINE 50 MG TABLET 100 MG PO (09:45)
[2022-05-08] MEDS: FOLIC ACID 1 MG TABLET PO (09:47)
--- NOTE | 2022-05-08 11:15 | PT.IPTN ---
Current Diagnoses Cerebral infarction, unspecified (05/01/22) Physical Therapy Treatment Note M2 PT-IP Current Condition Start: 05/07/22 09:18 Freq: NEEDED Status: Active Protocol: Document 05/07/22 11:05 AW (Rec: 05/07/22 12:44 AW [id number]) Physical Therapy Current Condition Current Condition Evaluation Date 05/07/22 Treatment Diagnosis metabolic encephalopathy; polysubstance withdrawal; impaired mobility Onset Date 04/30/22 M3 PT-IP Subjective Start: 05/07/22 09:18 Freq: NEEDED Status: Active Protocol: Document 05/08/22 10:59 KS (Rec: 05/08/22 12:27 KS [id number]) Subjective Physical Therapy Visit Type Type Treatment Note Visit Start Time 10:59 Visit Stop Time 11:15 Total Visit Minutes 16 Notes co-treat w/ OT due to pt's need for increased level of assist. Physical Therapy Visit Comments Patient Comments Pt nods consent to therapy evaluations. He is lethargic but does attempt to communicate in short sentences with weak voice. M4 PT-IP Mobility and Gait Start: 05/07/22 09:18 Freq: NEEDED Status: Active Protocol: Document 05/08/22 10:59 KS (Rec: 05/08/22 12:27 KS [id number]) PT-Bed Mobility Assessment Scooting Scooting to Edge of Bed Minimal Assistance PT-Transfer Assessment Sit to and From Stand Sit to and from Stand Moderate Assistance,2 Person Assistance,Use of Upper Extremities Equipment Transfer Assistive Device Gait Belt,Front Wheeled Walker Orthotic/Prosthetic Devices or Brace: No Transfers Transfer Destination Bed,Chair Transfer Technique Stand Step Pivot Transfer Ability Level of Assist Maximum Assistance,2 Person Assistance,Use of Upper Extremities Comments Mobility Comments Pt in chair upon arrival and nooding yes in agreement to ambulate. Mod A x2 and max verbal and tactile cues for sit<>stand w/ FWW. Pt then attempted to ambulate but only took 1 step prior to sitting. Agreed to try again and took ~4 steps w/ chair follow. Very unsteady w/ bilateral knee buckling. Pt sat down and refused further ambulation due to fatigue, then sit<>Stand again Mod A x2 w/ FWW and performed stand step pivot to bed Max A x2 and max cues. Pt left in bed w/ all needs in reach. Gait Assessment Gait Gait Assistance Required: Maximum Assistance,2 Person Assist Distance (Feet) 4 Assistive Devices Assistive Device Gait Belt,Front Wheeled Walker Orthotic/Prosthetic Devices or Brace: No Gait Deviations General Gait Pattern Ataxic,Decreased Stride Length ,Decreased Feet Clearance, Flexed Trunk,Lateral Trunk Lean Factors Limiting Gait Function Factors Limiting Gait Function Decreased Activity Tolerance, Decreased Strength,Difficulty Following Directions, Incoordination,Pain,Poor Balance,Poor Safety Awareness Comments Gait Comments Steps taken during transfer only. See mobility comments for details. Stair Climbing Assessment Comments Stair Climbing Comments Not assessed. PT-Balance Assessment Sitting Balance and Reactions Static Sitting Balance Ability Poor Dynamic Sitting Balance Ability Poor Standing Balance and Reactions Static Standing Balance Ability Poor Dynamic Standing Balance Ability Poor Device Used FWW M5 PT-IP Objective Assessments Start: 05/07/22 09:18 Freq: NEEDED Status: Active Protocol: Document 05/07/22 11:05 AW (Rec: 05/07/22 13:30 AW [id number]) Orientation Orientation/Cognition Level of Alertness Lethargic Orientation Name,Month,Place Safety Awareness Decreased Safety Awareness Gross Range of Motion Lower Extremity ROM Assessment Within Functional Limits Strength Lower Extremity Strength Assessment Bilaterally Impaired Comments Strength Comments R grossly 3-/5. L grossly 3+/5 Coordination Assessment Gross Coordination Gross Coordination Impaired Assessment Finger to Nose Test Activity Impossible Foot Tapping Test Minimal Impairment Coordination Comments Pt limited by BUE weakness with UE coordination testing. Sensation Assessment Sensation Gross Sensation WNL Muscle Tone Muscle Tone WNL Yes M6 PT-IP Treatment Start: 05/07/22 09:18 Freq: NEEDED Status: Active Protocol: Document 05/08/22 10:59 KS (Rec: 05/08/22 12:27 KS [id number]) Physical Therapy Treatment Education Education Provided Safety M7 PT-IP Assessment and Plan Start: 05/07/22 09:18 Freq: NEEDED Status: Active Protocol: Document 05/08/22 10:59 KS (Rec: 05/08/22 12:27 KS [id number]) PT Summary Assessment and Plan Potential Rehabilitation Potential Fair Status of Condition at Evaluation Evolving Summary Impairments Strength,Balance,Coordination, Cognition,Bed Mobility, Transfers,Gait Assessment Summary Pt continues to have poor trunk control, poor balance and safety awareness and needs Mod A x2-Max A x2 for transfers and ambulation w/ FWW as well as max verbal and tactile cues for sequencing and FWW use. He was able to take a few steps w/ chair follow, but very unsteady and w/ quick approach to fatigue needing 2PA at all times. Pt will require SNF to improve strength and functional mobility independence. Goals Bed Mobility Goal Contact Guard Assistance Transfer Goal Standby Assistance,Front Wheeled Walker Gait Goal Standby Assistance,Front Wheel Walker Gait Distance 150 Other Goals up/down 4 steps with rails SBA - improve transfers and gait to SBA with 4WW Days to Meet Goals 10 Frequency of Treatment Frequency Of Treatment Once a Day Treatment Plan Physical Therapy Treatment Plan Bed Mobility Training,Transfer Training,Gait Training, Therapeutic Exercise,Balance Retraining,Discharge Planning, Hot or Cold Pack,Neuromuscular Re-ed,Coordination Retraining Precautions Other Precautions seizure precautions; falls risk Recommendations To Nursing Amount of Assist Needed 2 Person Assist Discharge Recommendations PT Discharge Recommendations Home with / Assist Available,Home Health,SNF Rehab,Home vs SNF Equipment Needed for Home Before FWW if unsafe with 4WW Discharge Transportation Needs at Discharge Private Vehicle,Wheelchair/ Cabulance
--- NOTE | 2022-05-08 11:15 | OT.IP.TRT ---
Current Diagnoses Cerebral infarction, unspecified (05/01/22) Occupational Therapy Treatment Note M2 OT-IP Current Condition Start: 05/07/22 12:13 Freq: Status: Active Protocol: Document 05/07/22 12:13 CGR (Rec: 05/07/22 12:37 CGR [id number]) Occupational Therapy Current Condition Current Condition Evaluation Date 05/07/22 Treatment Diagnosis generalized weakness, hx IV drug use, R CVA 2016 Diagnosis Onset Date 05/01/22 M3 OT- IP Subjective and Pain Start: 05/07/22 12:13 Freq: Status: Active Protocol: Document 05/08/22 12:15 CGR (Rec: 05/08/22 12:19 CGR [id number]) OT- Subjective Occupational Therapy Visit Type Type Progress Note Visit Start Time 10:59 Visit Stop Time 11:15 Total Visit Minutes 16 Notes co-treat with p.t. OT Pain Assessment Pain When Pain Assessed At Rest Pain Present Pain Present Pain Reported Location Back Scale Used did not rate Management Techniques Modification of Treatment,Re- positioning M4 OT- IP ADL's Start: 05/07/22 12:13 Freq: Status: Active Protocol: Document 05/07/22 12:13 CGR (Rec: 05/07/22 12:37 CGR [id number]) OT [id number] Comments OT Self-Feeding Comments Not meal time but pt is unlikely to be able to feed self based on arm strength OT ADL-Grooming General Evaluation Grooming Ability Standby Assistance Areas Needing Assistance Retrieving/Set-up of Grooming Items,Face Washing Comments OT Grooming Comments seated EOB OT ADL-Oral Care Comments Oral Care Comments not performed, pt states he has no teeth. OT ADL-Dressing General Eval Lower Body Dressing Ability Moderate Assistance,Maximum Assistance Areas Needing Assistance Underpants/Brief Comments OT Dressing Comments Assisted pt with threading brief with pt's active participation but still needed mod to max assist to perform OT ADL-Toileting General Evaluation Toileting Ability Total Assistance Areas Needing Assistance Manage Clothing,Perform Perineal Hygiene Comments OT Toileting Comments Pt with soilded brief when OT entered. Donned clean brief and removed dirty upon standing. Pt needed assist with peircare and pulling up new brief. OT ADL-Bathing Comments OT Bathing Comments not performed M5 OT- IP IADL's Start: 05/07/22 12:13 Freq: Status: Active Protocol: Document 05/07/22 12:13 CGR (Rec: 05/07/22 12:37 CGR [id number]) OT-Instrumental Activities of Daily Living Deficits IADL Deficits Identified Deficits Home Safety Awareness Awareness of Need for Assistance at Home Decreased Awareness Ability to Problem Solve Emergency Unable to Problem Solve Situations Medication Management Medication Management Comments Concerns about pt's ability to perform consistently Money Management Money Management Comments Concerns about pt's ability to perform consistently Meal Preparation Meal Preparation Comments Concerns about pt's ability to perform consistently Wood Tank Builder Wood Tank Builder Comments Concerns about pt's ability to perform consistently M6 OT- IP Functional Cognition Start: 05/07/22 12:13 Freq: Status: Active Protocol: Document 05/07/22 12:13 CGR (Rec: 05/07/22 12:37 CGR [id number]) Cognitive Factors Limiting Selfcare Function Cognitive Ability Level of Alertness Alert Patient Orientation Name,Age,Birthday,Month,Year, Place,Situation Attention Span Ability Capable of Focused Attention, Unable to Sustain Attention Ability to Follow Commands Able to Follow One Step Commands with Increased Time, Able to Follow One Step Commands with Repetition Cognitive Comments Cognitive Assessment Comments Pt may benefit from formal cognitive testing as he further clears. OT- Vision and Hearing OT- Hearing Assessment OT- Hearing Assessment WFL OT- Vision Assessment Occular Pursuits WFL Visual Convergence Impaired Vision Assessment Comments Pt's right eye diverts to the right with convergence. M7 OT- IP Mobility and Balance Start: 05/07/22 12:13 Freq: Status: Active Protocol: Document 05/08/22 12:15 CGR (Rec: 05/08/22 12:19 CGR [id number]) OT- Bed Mobility Assessment Sit to Supine Sit to Supine Assist Moderate Assistance,1 Person Assistance OT-Transfer Assessment Sit to and From Stand Sit to and from Stand Moderate Assistance,2 Person Assistance Transfers Transfer Ability Maximum Assistance,2 Person Assistance Technique Transfer Destination Bed,Car Transfer Technique Stand Step Pivot Devices Transfer Assistive Devices Gait Belt,Front Wheeled Walker Comments Mobility Comments Pt needed max x2 for transfer but was able to stand with MOD x2. Pt stood x3 in session with steps forward each time. OT- Balance Assessment Sitting Balance and Reactions Static Sitting Balance Ability Poor Dynamic Sitting Balance Ability Poor M8 OT- IP Objective Assessments Start: 05/07/22 12:13 Freq: Status: Active Protocol: Document 05/07/22 12:13 CGR (Rec: 05/07/22 12:37 CGR [id number]) OT Gross Range of Motion Upper Extremity Range of Motion ROM Impairments AAROM WFL OT Strength Upper Extremity Strength Assessment Bilaterally Impaired Comments Strength Comments R weaker than L R grossly 2/5 L grossly 2+ to 3-/5 OT- Coordination Assessment Upper Extremity Finger to Nose Test Bilateral UE Impaired Finger Tapping Test Bilateral UE Impaired OT-Muscle Tone Assessment Muscle Tone WNL Yes OT Sensation Assessment Edema Edema Absent M9 OT- IP Assessment and Plan Start: 05/07/22 12:13 Freq: Status: Active Protocol: Document 05/08/22 12:15 CGR (Rec: 05/08/22 12:19 CGR [id number]) OT Summary Assessment and Plan Potential Rehabilitation Potential Good Analytic Complexity at Evaluation High Summary OT Impairments Pain,Strength,Balance, Coordination,Functional Cognition,Functional Mobility, Self-Feeding,Grooming,Dressing ,Toileting,Bathing,Toilet Transfers,Shower Transfers, Activity Tolerance Progress Towards Goals Slow Progress due to Medical Issues Assessment Summary Pt presents as a high complexity evaluation s/p admit for generalized weakness and detox symptoms. Pt has a hx of IV poly substance use and 2016 CVA with R sided weakness. Pt continues to display profound weakness and needed more assist with mobility on this date. Pt still with good participation but poor endurance. Pt was too fatigued to participate in ADLs after mobility. Will continue to follow. Goals Self-Feeding Goal Independent Grooming Goal Independent Dressing Goal Independent Toileting Goal Independent Bathing Goal Independent Toilet Transfer Goal Independent Shower Transfer Goal Independent Days to Meet Goals 30 Frequency of Treatment Frequency Of Treatment Once a Day Treatment Plan OT Treatment Plan ADL Training,Functional Cognition Training,Functional Mobility,Neuromuscular Re- education,Therapeutic Exercises,Patient/Family Education,Discharge Planning Other Treatment Recommendations and Next sitting balance with ADLs Treatment Focus Discharge Recommendations OT Discharge Recommendations SNF Rehab Transportation Needs at Discharge Wheelchair/Cabulance
--- NOTE | 2022-05-08 11:19 | ST.IPDYTX ---
Visit Care Team Role Provider Type Kenney Joshi MD Family Provider Non-Staff Primary Care Provider Specialty: Family Practice Address: [address] , [address], [place], [address] Email: Richard Hannon DO Emergency Provider Physician Referring Provider Specialty: Emergency Medicine Address: [address] [place] [address], [address] Email: [email or web address] JONATHAN Sampson Admit Provider Physician Attending Provider Specialty: Internal Medicine Address: [address] [place] [address], [address] Email: [email or web address] Dysphagia Treatment [employer] WORK[employer] Clinical Instructor Line Start: 05/07/22 11:09 Freq: Status: Active Protocol: Document 05/07/22 11:09 HERMINIA (Rec: 05/07/22 11:09 HERMINIA [id number]) Clinical Instructor Signature Clinical Instructor Clinical Instructor Yes [employer] Dysphagia Treatment Start: 05/07/22 09:45 Freq: Status: Active Protocol: Document 05/08/22 11:12 ZS (Rec: 05/08/22 11:19 ZS [id number]) Dysphagia Treatment Session Time Visit Start Time 10:30 Visit Stop Time 11:00 Total Visit Minutes 30 Setting Assessment Location Acute Care Visit Type Note Type Treatment Note Next Note Type Next Note Type Treatment Note Patient Information Identification Type Name,ID Wristband Subjective Observations Pt was sleeping with mouth open, semi-reclined in chair upon [employer] arrival. He aroused and opened them upon verbal and tactile cues from [employer] WORK[employer]. Pt appeared fatigued throughout the session as evidenced by closing eyes and overall weakness. Pt was repositioned to upright for PO trials. Treatment Solids Trialed Puree Administration Type Tea Spoon,Dependent Feeding Oral Strategies Upright at 90 degrees Pharyngeal Strategies Sitting Upright (90 deg),Chin Tuck Treatment Activities Puree textures (i.e. pudding) were trialed. Pt required reminders for chin tuck for each bite, with verbal and tactile cues provided. Two instances of a slight cough were noted across trials , though no other overt signs or symptoms of aspiration were observed. However, silent aspiration cannot be ruled out . The pt's voice was very quiet, mostly speaking in whispers. Also of note, when asked to take several deep breaths, a wet quality was noted for inhalation which diminished with slight cough. Pt fatigued after 4 being fed 4 bites of pudding. Pt should be encouraged to self-feed as much as possible to increase overall awareness and strength while eating. Assessment Patient Response to Treatment Good Rehab Potential Good Assessment of Improvement NSG reported pt has thrush and did not eat any breakfast this morning. Pt was more alert and followed directions more than compared to previous attempts of treatment. Pt's diet level recommended to continue as puree. Will continue to assess pt's swallow safety and upgrade diet as indicated. Diet Recommendations Recommendations Continue Current Diet Liquids Order Thin Diet Order Dysphagia Blenderized Medication Recommendations Whole in Carrier Additional Dietary Needs Single Sips,Controlled Sips,No Straws,1:1 Assistance, Encourage to Self-Feed, Reminders to Use Strategies Aspiration Precautions Recommended Precautions Upright at 90 Degrees,Frequent Rest Periods,Small Bites/Sips ,Chin Tuck,Check for Pocketing Treatment Plan Placement Recommendation after Discharge Senior Care Facility Appropriate for Continued Therapy Yes Therapy Recommendations Continue to see 1x daily over course of hospital stay to monitor progress and further assess/treat deficits as needed. Dysphagia Goals Pt to participate in ongoing evaluation of swallow safety with diet advancement as appropriate. Pt will safely tolerate least restrictive diet to meet his nutrition and hydration needs
[2022-05-08] MEDS: CLOTRIMAZOLE TROCHE 10 MG PO ×3 (11:31→22:16)
[2022-05-08] MEDS: cefTRIAXone 1,000 MG in SODIUM CHLORIDE 0.9% 100 ML 200 MG IV (11:31)
[2022-05-08] MEDS: ALBUTEROL 2.5 MG/3 ML NEB (ADULT) INH ×2 (12:36→20:40)
--- NOTE | 2022-05-08 16:00 | PM.PN.1 ---
Subjective Subjective Date Patient Seen: 05/08/22 Interval history: Still with weakness, did not want to eat. Has some throat pain and oral thrush was noted. Could not tolerate heide's so will treat with fluconazole. Exam Vital Signs (past 8 hours): - 05/08/22 08:20 05/08/22 09:35 05/08/22 12:36 Temperature 97.2 F L Pulse Rate 61 90 65 Respiratory Rate 18 20 16 Blood Pressure 147/88 H 167/90 H Pulse Oximetry 94 95 Oxygen Delivery Method Room Air 05/08/22 12:30 Temperature 98.5 F Pulse Rate 75 Respiratory Rate 18 Blood Pressure 150/81 H Pulse Oximetry 97 Oxygen Delivery Method Oxygen Delivery Method Room Air Oxygen Flow Rate 0 Narrative Exam Narrative: General:?disheveled, chronically ill appearing male, no acute distress, sleeping but easily arousable. HEENT:? Normocephalic, atraumatic, extraocular muscles intact, posterior pharynx with erythema and thrush. mucous membranes are moist. Poor dentition. Lungs:? CTA b/l no wheezing rhonchi or rales. Cardio:?RRR no m/r/g. Abdomen: S NT ND. Extremities: No edema or joint effusions. No cyanosis or clubbing. Neuro:? Alert, very soft spoken but responds appropriately to questions today. Much improved mentation compared to prior exams. No tremulousness. Objective Labs Result Diagrams: 05/08/22 06:00 05/08/22 06:00 Labs: Laboratory Results - last 24 hr 05/08/22 05/08/22 06:00 06:00 WBC 5.8 RBC 4.64 Hgb 10.3 L Hct 31.3 L MCV 67.5 L MCH 22.1 L MCHC 32.8 RDW 19.8 H Plt Count 215 Neut % (Auto) 65.4 Lymph % (Auto) 23.9 L [place] % (Auto) 8.5 Eos % (Auto) 2.0 Baso % (Auto) 0.2 Neut # (Auto) 3800 Lymph # (Auto) 1400 [place] # (Auto) 500 Eos # (Auto) 100 Baso # (Auto) 0 RBC Morphology Not Reportable Hypochromasia 1+ H Anisocytosis 1+ H Microcytosis 1+ H Sodium 138 Potassium 2.8 L Chloride 108 H Carbon Dioxide 30 BUN 6 L Creatinine 0.35 L Estimated GFR > 60 BUN/Creatinine Ratio 17.1 Glucose 81 Calcium 7.0 L [facility] Medical History (Updated 05/02/22 @ 00:00 by ) Asthma Chronic back pain greater than 3 months duration Closed intertrochanteric fracture of left femur Depression Drug abuse, IV History of CVA (cerebrovascular accident) Surgical History History of hernia repair Family History Father Unknown family medical history Mother No problems noted. Grandmother Myocardial infarction Grandfather No problems noted. Social History household members: friend(s) Smoking Status: Current some day smoker alcohol intake: current Assessment & Plan Assessment & Plan narrative: 1. Metabolic encephalopathy with probable multi-substance withdrawal, most likely opiate withdrawal ?- suspect polysubstance withdrawal, definitely opiate with possible EtOH given presentation ?- methadone given initially but now discontinued with improvement in mentation. Continue ativan per [facility] protocol. Possibly received outside illicit substances overnight 05/01. Visitors now heavily restricted. ?- MRI was negative for CVA. ?- PT/ OT to continue, 2 person assist. 2. Acute respiratory failure with hypoxia, bacterial pneumonia due to group A strep. ?- suspect secondary to aspiration pneumonia or possible pneumonitis. Sputum cultures with group A strep. ?- chest xray with mild congestive appearance but could be aspiration given clinical picture. Doubt CHF given recent TTE with normal Ef and no signs of diastolic dysfunction. ?- started on ceftriaxone and azithromycin for possible bacterial pneumonia, with increased secretions noted today and need for supplemental O2. ?- sputum cultures as noted above. ?- RT eval and treatments appreciated. prn albuterol started. ?- consider speech eval depending on mental status improvements. -continue IV antibiotics, discontinued azithro ? 3. Hypertension, improved ?- likely due to withdrawal, will continue to monitor. 4. HLD ?- continue statin 5. Polysubstance IV abuse ?- management as noted above. - will check HIV test 6. Oral thrush - treat with oral fluconazole - check HIV status. Dispo: home vs SNF, though he may be a difficult placement. He is a 2 person assist with PT currently. Time Spent With Patient Critical Care time: I spent a total of [] minutes of critical care time on this patient's care today; this time is exclusive of procedural time. Quality VTE Deep Vein Thrombosis/Pulmonary Embolism Present on Admission: No
[2022-05-08] MEDS: FLUCONAZOLE 100 MG TABLET 400 MG PO (17:04)
[2022-05-08] MEDS: SODIUM CHLORIDE 0.9% FLUSH 10 ML IV (21:07)
[2022-05-08] MEDS: ATORVASTATIN 20 MG TABLET 40 MG PO (21:07)
--- NOTE | 2022-05-08 21:46 | PC.NURSE ---
Addendum entered by Dina Abraham R.N. 05/09/22 04:08: Patient restless and complains of feeling uncomfortable with pain all over. States I'm going through withdrawal but CIWA score is 7 so medicated with Tylenol. Original Note: Patient is oriented except to day of month/day of week. Very soft spoken and words are mumbled so can be difficult to understand. Breath sounds diminished with expiratory rhonchi; complained of not being able to breathe but had RA sat of 97% so RT called and provided neb treatment with good results. HRR. BP elevated at 154/76. Denied nausea. BT hyperactive; abdomen is soft. Restless/anxious with CIWA score of 11 so Lorazepam administered and CIWA dropped to 5. Is being repositioned frequently as patient incontinent of B&B so needing brief changes. Bruising noted on bilateral flank, abdomen and all extremities. Bilateral calf SCD's applied but patient with increased restlessness so requested they be removed. Fall risk score is high and bed alarm is activated.
[2022-05-09 03:47] VITALS: BP 149/80; PULSE 67; RESP 18; TEMP 36.6; O2SAT 94
[2022-05-09] MEDS: ACETAMINOPHEN 325 MG TABLET 650 MG PO (04:00)
[2022-05-09] MEDS: SODIUM CHLORIDE 0.9% 1,000 ML 100 ML IV ×2 (04:02→14:31)
[2022-05-09] MEDS: SODIUM CHLORIDE 0.9% FLUSH 10 ML IV (05:39)
[2022-05-09] MEDS: CLOTRIMAZOLE TROCHE 10 MG PO ×2 (05:47→09:59)
[2022-05-09 06:00] LABS: Add Manual Diff / Slide Review NO; Basophils Absolute Auto 0 /uL (0-100); Basophils Percent Auto 0.3 % (0-2); Eosinophils Absolute Auto 100 /uL (0-450); Eosinophils Percent Auto 0.9 % (2-4); Hematocrit 34.6 % (41-53); Hemoglobin 11.2 g/dL (13.5-17.5); Lymphocytes Absolute Auto 1500 /uL (1100-4500); Lymphocytes Percent Auto 18.2 % (25-40); Mean Corpuscular HGB Conc 32.2 % (30-36); Mean Corpuscular Hemoglobin 21.9 PG (26-34); Monocytes Absolute Auto 600 /uL (0-900); Monocytes Percent Auto 6.9 % (3-14); Neutrophils Absolute Auto 6200 /uL (1500-7000); Neutrophils Percent Auto 73.7 % (50-75); Platelet Count 271 X10^3/uL (150-400); Red Blood Cell Count 5.09 X10^6/uL (4.5-5.9); Red Cell Distribution Width 19.5 % (11.6-14.8); White Blood Cell Count 8.4 X10^3/uL (4.5-11.0)
[2022-05-09 06:14] LABS: BUN Creatinine Ratio 19.5 (6-22); Blood Urea Nitrogen 8 mg/dL (9-20); Calcium 8.3 mg/dL (8.4-10.2); Carbon Dioxide 31 mmol/L (22-32); Chloride 101 mmol/L (98-107); Estimated Glomerular Filt Rate > 60 mL/min (>60); Glucose 90 mg/dL (80-110); HEMOLYSIS < 15 (0-50); Potassium 3.7 mmol/L (3.4-5.1); Sodium 137 mmol/L (137-145)
[2022-05-09 06:52] LABS: Anisocytosis 1+; Hypochromasia 1+; Microcytosis 2+
[2022-05-09 07:45] VITALS: BP 163/75; PULSE 66; RESP 18; TEMP 36.6; O2SAT 96
[2022-05-09] MEDS: ENOXAPARIN 40 MG/0.4 ML SYRINGE SUBCUT (08:58)
[2022-05-09] MEDS: FLUCONAZOLE 100 MG TABLET 200 MG PO (08:58)
[2022-05-09] MEDS: MULTIVITAMIN 1 TABLET 1 TAB PO (08:58)
[2022-05-09] MEDS: SERTRALINE 50 MG TABLET 100 MG PO (08:59)
[2022-05-09] MEDS: FOLIC ACID 1 MG TABLET PO (08:59)
[2022-05-09] MEDS: LORazepam 2 MG/ML INJ IV (08:59)
[2022-05-09] MEDS: ASPIRIN EC 81 MG TABLET PO (08:59)
--- NOTE | 2022-05-09 09:20 | ST.IPDYTX ---
Visit Care Team Role Provider Type Kenney Joshi MD Family Provider Non-Staff Primary Care Provider Specialty: Family Practice Address: [address] , [address], [place], [address] Email: Richard Hannon DO Emergency Provider Physician Referring Provider Specialty: Emergency Medicine Address: [address] [place] [address], [address] Email: [email or web address] JONATHAN Sampson Admit Provider Physician Attending Provider Specialty: Internal Medicine Address: [address] [place] [address], [address] Email: [email or web address] Dysphagia Treatment [employer] Clinical Instructor Line Start: 05/07/22 11:09 Freq: Status: Active Protocol: Document 05/07/22 11:09 HERMINIA (Rec: 05/07/22 11:09 HERMINIA [id number]) Clinical Instructor Signature Clinical Instructor Clinical Instructor Yes [employer] Dysphagia Treatment Start: 05/07/22 09:45 Freq: Status: Active Protocol: Document 05/09/22 09:14 ZS (Rec: 05/09/22 09:20 ZS [id number]) Dysphagia Treatment Session Time Visit Start Time 09:00 Visit Stop Time 09:15 Total Visit Minutes 15 Setting Assessment Location Acute Care Visit Type Note Type Treatment Note Next Note Type Next Note Type Treatment Note Patient Information Identification Type Name,ID Wristband Subjective Observations Pt was semi-reclined in bed with NSG at bedside upon [employer] arrival. Per NSG, pt ate a few bites of oatmeal and some apple juice for breakfast but is experiencing increased pain /discomfort today. Treatment Solids Trialed Puree Administration Type Tea Spoon,Dependent Feeding Oral Strategies Upright at 90 degrees Pharyngeal Strategies Sitting Upright (90 deg),Chin Tuck Treatment Activities Observed NSG provide medications crushed in carrier (pudding) x7 bites. Provided verbal and tactile cues for pt to use chin tuck. Pt required reminders for chin tuck for most bites, with 2 instances of spontaneous chin tuck. One instance of a slight cough was noted across trials, though no other overt signs or symptoms of aspiration were observed. However, silent aspiration cannot be ruled out . Pt should be encouraged to self-feed as much as possible to increase overall awareness and strength while eating. Assessment Patient Response to Treatment Good Rehab Potential Good Assessment of Improvement Pt demonstrated increased spontaneous use of safe swallow strategies, though still required verbal and tactile cues for most bites. He exhibited a slight cough x1 and continues to have a very weak cough. Pt's diet level recommended to continue as puree. Will continue to assess pt's swallow safety and upgrade diet as indicated. Diet Recommendations Recommendations Continue Current Diet Liquids Order Thin Diet Order Dysphagia Blenderized Medication Recommendations Whole in Carrier Additional Dietary Needs Single Sips,Controlled Sips,No Straws,1:1 Assistance, Encourage to Self-Feed, Reminders to Use Strategies Aspiration Precautions Recommended Precautions Upright at 90 Degrees,Frequent Rest Periods,Small Bites/Sips ,Chin Tuck,Check for Pocketing Treatment Plan Placement Recommendation after Discharge Group Home Facility Appropriate for Continued Therapy Yes Therapy Recommendations Continue to see 1x daily over course of hospital stay to monitor progress and further assess/treat deficits as needed. Dysphagia Goals Pt to participate in ongoing evaluation of swallow safety with diet advancement as appropriate. Pt will safely tolerate least restrictive diet to meet his nutrition and hydration needs
[2022-05-09 09:46] VITALS: BP 155/84; PULSE 74; RESP 15
--- NOTE | 2022-05-09 10:41 | PM.PN.1 ---
Subjective Subjective Date Patient Seen: 05/09/22 Interval history: Throat pain is feeling much improved. Still remains weak. Still a 2 person assist. Care management starting to look at both short and longer term care options. Exam Vital Signs (past 8 hours): - 05/09/22 03:47 05/09/22 07:45 05/09/22 09:46 Temperature 97.9 F 97.9 F Pulse Rate 67 66 74 Respiratory Rate 18 18 15 Blood Pressure 149/80 H 163/75 H 155/84 H Pulse Oximetry 94 96 Oxygen Flow Rate 0 0 Oxygen Delivery Method Room Air Oxygen Flow Rate 0 Narrative Exam Narrative: General:?disheveled, chronically ill appearing male, no acute distress, sleeping but easily arousable. HEENT:? Normocephalic, atraumatic, extraocular muscles intact, posterior pharynx with erythema and thrush. mucous membranes are moist. Poor dentition. Lungs:? CTA b/l no wheezing rhonchi or rales. Cardio:?RRR no m/r/g. Abdomen: S NT ND. Extremities: No edema or joint effusions. No cyanosis or clubbing. Neuro:? Alert, very soft spoken but responds appropriately to questions. No tremulousness. Objective Labs Result Diagrams: 05/09/22 05:39 05/09/22 05:39 Labs: Laboratory Results - last 24 hr 05/09/22 05/09/22 05:39 05:39 WBC 8.4 RBC 5.09 Hgb 11.2 L Hct 34.6 L MCV 68.0 L MCH 21.9 L MCHC 32.2 RDW 19.5 H Plt Count 271 Neut % (Auto) 73.7 Lymph % (Auto) 18.2 L [place] % (Auto) 6.9 Eos % (Auto) 0.9 L Baso % (Auto) 0.3 Neut # (Auto) 6200 Lymph # (Auto) 1500 [place] # (Auto) 600 Eos # (Auto) 100 Baso # (Auto) 0 RBC Morphology See below Hypochromasia 1+ H Anisocytosis 1+ H Microcytosis 2+ H Sodium 137 Potassium 3.7 Chloride 101 Carbon Dioxide 31 BUN 8 L Creatinine 0.41 L Estimated GFR > 60 BUN/Creatinine Ratio 19.5 Glucose 90 Calcium 8.3 L [facility] Medical History (Updated 05/02/22 @ 00:00 by ) Asthma Chronic back pain greater than 3 months duration Closed intertrochanteric fracture of left femur Depression Drug abuse, IV History of CVA (cerebrovascular accident) Surgical History History of hernia repair Family History Father Unknown family medical history Mother No problems noted. Grandmother Myocardial infarction Grandfather No problems noted. Social History household members: friend(s) Smoking Status: Current some day smoker alcohol intake: current Assessment & Plan Assessment & Plan narrative: 1. Metabolic encephalopathy with probable multi-substance withdrawal, most likely opiate withdrawal ?- suspect polysubstance withdrawal, definitely opiate with possible EtOH given presentation. ?- methadone given initially but now discontinued with improvement in mentation. Continue ativan per [facility] protocol. Possibly received outside illicit substances overnight 05/01. Visitors now heavily restricted. ?- MRI was negative for CVA. ?- PT/ OT to continue, 2 person assist. - potentially with more chronic dementia given still with poor cognition. Pending SLUMS testing. HIV testing pending. - TSH 0.9. 2. Acute respiratory failure with hypoxia, bacterial pneumonia due to group A strep. Resolved ?- suspect secondary to aspiration pneumonia or possible pneumonitis. Sputum cultures with group A strep. ?- chest xray with mild congestive appearance but could be aspiration given clinical picture. Doubt CHF given recent TTE with normal Ef and no signs of diastolic dysfunction. ?- started on ceftriaxone and azithromycin for possible bacterial pneumonia, with increased secretions noted and need for supplemental O2. ?- sputum cultures as noted above. ?- RT eval and treatments appreciated. prn albuterol started. ?- speech evaluation appreciated, currently on pureed and they are following. -continued IV ceftriaxone given cultures, discontinued azithro after a few days. Now completed course of therapy. ? 3. Hypertension, improved ?- likely due to withdrawal, will continue to monitor. 4. HLD ?- continue statin 5. Polysubstance IV abuse ?- management as noted above. -HIV pending 6. Oral thrush - treat with oral fluconazole - HIV pending Dispo: home vs SNF, though he may be a difficult placement. He is a 2 person assist with PT currently. Time Spent With Patient Critical Care time: I spent a total of [] minutes of critical care time on this patient's care today; this time is exclusive of procedural time. Quality VTE Deep Vein Thrombosis/Pulmonary Embolism Present on Admission: No
[2022-05-09] MEDS: cefTRIAXone 1,000 MG in SODIUM CHLORIDE 0.9% 100 ML 200 MG IV (11:20)
--- NOTE | 2022-05-09 11:53 | PT.IPTN ---
Current Diagnoses Cerebral infarction, unspecified (05/01/22) Physical Therapy Treatment Note M2 PT-IP Current Condition Start: 05/07/22 09:18 Freq: NEEDED Status: Active Protocol: Document 05/07/22 11:05 AW (Rec: 05/07/22 12:44 AW [id number]) Physical Therapy Current Condition Current Condition Evaluation Date 05/07/22 Treatment Diagnosis metabolic encephalopathy; polysubstance withdrawal; impaired mobility Onset Date 04/30/22 M3 PT-IP Subjective Start: 05/07/22 09:18 Freq: NEEDED Status: Active Protocol: Document 05/09/22 11:36 KS (Rec: 05/09/22 12:38 KS [id number]) Subjective Physical Therapy Visit Type Type Treatment Note Visit Start Time 11:36 Visit Stop Time 11:53 Total Visit Minutes 17 Notes co-treat w/ OT due to pt's need for increased level of assist. Physical Therapy Visit Comments Patient Comments Pt nods consent to therapy evaluations. He is lethargic but does attempt to communicate in short sentences with weak voice. M4 PT-IP Mobility and Gait Start: 05/07/22 09:18 Freq: NEEDED Status: Active Protocol: Document 05/09/22 11:36 KS (Rec: 05/09/22 12:38 KS [id number]) PT-Bed Mobility Assessment Supine to Sit Supine to Sit Moderate Assistance,2 Person Assistance,Head of Bed Elevated Scooting Scooting to Edge of Bed Moderate Assistance PT-Transfer Assessment Sit to and From Stand Sit to and from Stand Moderate Assistance,Maximum Assistance,2 Person Assistance ,Use of Upper Extremities Equipment Transfer Assistive Device Gait Belt,Front Wheeled Walker Orthotic/Prosthetic Devices or Brace: No Transfers Transfer Destination Chair Transfer Technique Stand Step Pivot Transfer Ability Level of Assist Maximum Assistance,2 Person Assistance,Use of Upper Extremities Comments Mobility Comments Pt in bed upon arrival and agreeable to transfer to chair . Mod A x2 for sup<>sit and scooting EOB. Mod A x2 for sit <>stand w/FWW. Pt then performed stand step pivot from bed to chair w/ Max A x2 and max step by step cues and FWW managment. Max A for slow controlled descent into chair. Pt then agreed to ambulate. He ambulated 3x, each requiring Mod/Max A x2 for sit <>stand and ambulation. Pt able to take 2-3 steps the first two attempts w/ Mod/Max A x2. On last attempt he ambulated ~6 ft w/ chair follow and FWW w/ Mod/Max Ax2 and max cues,step by step and FWW management. Gait Assessment Gait Gait Assistance Required: Maximum Assistance,2 Person Assist Distance (Feet) 6 Assistive Devices Assistive Device Gait Belt,Front Wheeled Walker Orthotic/Prosthetic Devices or Brace: No Gait Deviations General Gait Pattern Ataxic,Decreased Stride Length ,Decreased Feet Clearance, Flexed Trunk,Lateral Trunk Lean Factors Limiting Gait Function Factors Limiting Gait Function Decreased Activity Tolerance, Decreased Strength,Difficulty Following Directions, Incoordination,Pain,Poor Balance,Poor Safety Awareness Comments Gait Comments See mobility comments for details. Stair Climbing Assessment Comments Stair Climbing Comments Not assessed. PT-Balance Assessment Sitting Balance and Reactions Static Sitting Balance Ability Poor Dynamic Sitting Balance Ability Poor Standing Balance and Reactions Static Standing Balance Ability Poor Dynamic Standing Balance Ability Poor Device Used FWW M5 PT-IP Objective Assessments Start: 05/07/22 09:18 Freq: NEEDED Status: Active Protocol: Document 05/07/22 11:05 AW (Rec: 05/07/22 13:30 AW [id number]) Orientation Orientation/Cognition Level of Alertness Lethargic Orientation Name,Month,Place Safety Awareness Decreased Safety Awareness Gross Range of Motion Lower Extremity ROM Assessment Within Functional Limits Strength Lower Extremity Strength Assessment Bilaterally Impaired Comments Strength Comments R grossly 3-/5. L grossly 3+/5 Coordination Assessment Gross Coordination Gross Coordination Impaired Assessment Finger to Nose Test Activity Impossible Foot Tapping Test Minimal Impairment Coordination Comments Pt limited by BUE weakness with UE coordination testing. Sensation Assessment Sensation Gross Sensation WNL Muscle Tone Muscle Tone WNL Yes M6 PT-IP Treatment Start: 05/07/22 09:18 Freq: NEEDED Status: Active Protocol: Document 05/09/22 11:36 KS (Rec: 05/09/22 12:38 KS [id number]) Physical Therapy Treatment Education Education Provided Safety M7 PT-IP Assessment and Plan Start: 05/07/22 09:18 Freq: NEEDED Status: Active Protocol: Document 05/09/22 11:36 KS (Rec: 05/09/22 12:38 KS [id number]) PT Summary Assessment and Plan Potential Rehabilitation Potential Fair Status of Condition at Evaluation Evolving Summary Impairments Strength,Balance,Coordination, Cognition,Bed Mobility, Transfers,Gait Assessment Summary Pt showing some progress today and is motivated when participating, but continues to be limited by weakness and still requires Mod/Max A x2 w/ max step by step cues and FWW management for transfers and ambulation. Able to improve ambulation distance to 6 ft today w/ chair follow. Pt will require SNF to improve strength and functional mobility independence. Goals Bed Mobility Goal Contact Guard Assistance Transfer Goal Standby Assistance,Front Wheeled Walker Gait Goal Standby Assistance,Front Wheel Walker Gait Distance 150 Other Goals up/down 4 steps with rails SBA - improve transfers and gait to SBA with 4WW Days to Meet Goals 10 Frequency of Treatment Frequency Of Treatment Once a Day Treatment Plan Physical Therapy Treatment Plan Bed Mobility Training,Transfer Training,Gait Training, Therapeutic Exercise,Balance Retraining,Discharge Planning, Hot or Cold Pack,Neuromuscular Re-ed,Coordination Retraining Precautions Other Precautions seizure precautions; falls risk Recommendations To Nursing Amount of Assist Needed 2 Person Assist Discharge Recommendations PT Discharge Recommendations Home with 17/06 Assist Available,Home Health,SNF Rehab,Home vs SNF Equipment Needed for Home Before FWW if unsafe with 4WW Discharge Transportation Needs at Discharge Private Vehicle,Wheelchair/ Cabulance
--- NOTE | 2022-05-09 12:14 | OT.IP.TRT ---
Current Diagnoses Cerebral infarction, unspecified (05/01/22) Occupational Therapy Treatment Note M2 OT-IP Current Condition Start: 05/07/22 12:13 Freq: Status: Active Protocol: Document 05/07/22 12:13 CGR (Rec: 05/07/22 12:37 CGR [id number]) Occupational Therapy Current Condition Current Condition Evaluation Date 05/07/22 Treatment Diagnosis generalized weakness, hx IV drug use, R CVA 2016 Diagnosis Onset Date 05/01/22 M3 OT- IP Subjective and Pain Start: 05/07/22 12:13 Freq: Status: Active Protocol: Document 05/09/22 12:36 CGR (Rec: 05/09/22 13:35 CGR [id number]) OT- Subjective Occupational Therapy Visit Type Type Progress Note Visit Start Time 11:36 Visit Stop Time 12:14 Total Visit Minutes 38 Notes Partial co-treat with P.T. OT Pain Assessment Pain When Pain Assessed At Rest Pain Present Pain Present Pain Reported Location Back Scale Used did not rate Management Techniques Modification of Treatment,Re- positioning M4 OT- IP ADL's Start: 05/07/22 12:13 Freq: Status: Active Protocol: Document 05/09/22 12:36 CGR (Rec: 05/09/22 13:35 CGR [id number]) OT IBC-Rcyd-Bwlbtdd General Evaluation Self-Feeding Ability Moderate Assistance Areas Needing Assistance Drinking From Cup/Glass Comments OT Self-Feeding Comments Pt was unable to hold cup and had difficulty using straw. Notifed nursing admin of need for assist. OT ADL-Grooming Comments OT Grooming Comments not performed OT ADL-Oral Care Comments Oral Care Comments not performed OT ADL-Dressing General Eval Lower Body Dressing Ability Total Assistance Areas Needing Assistance Socks OT ADL-Toileting Comments OT Toileting Comments not performed OT ADL-Bathing Comments OT Bathing Comments not performed M5 OT- IP IADL's Start: 05/07/22 12:13 Freq: Status: Active Protocol: Document 05/07/22 12:13 CGR (Rec: 05/07/22 12:37 CGR [id number]) OT-Instrumental Activities of Daily Living Deficits IADL Deficits Identified Deficits Home Safety Awareness Awareness of Need for Assistance at Home Decreased Awareness Ability to Problem Solve Emergency Unable to Problem Solve Situations Medication Management Medication Management Comments Concerns about pt's ability to perform consistently Money Management Money Management Comments Concerns about pt's ability to perform consistently Meal Preparation Meal Preparation Comments Concerns about pt's ability to perform consistently Seam Taper Machine Seam Taper Machine Comments Concerns about pt's ability to perform consistently M6 OT- IP Functional Cognition Start: 05/07/22 12:13 Freq: Status: Active Protocol: Document 05/09/22 12:36 CGR (Rec: 05/09/22 13:35 CGR [id number]) Cognitive Factors Limiting Selfcare Function Cognitive Ability Level of Alertness Drowsy Patient Orientation Name,Age,Month,Year,Day of Week,Place Attention Span Ability Capable of Focused Attention, Capable of Sustained Attention Ability to Follow Commands Able to Follow One Step Commands with Increased Time, Able to Follow One Step Commands with Repetition Cognitive Tests SLUMS Pt was able to participate in SLUMS on this date with a score of 17/30. Pt was oriented to the day of the week, the year, and the state. Pt was able to do simple math and state 10 animals in one minute. Pt was unable to remember any of the 5 objects and was unable to perform backwards series of numbers. Pt earned no points for the clock face which may be d/t his UE weakness and inabiltiy to write vs his cognition. Pt was able to put an x in the triangle but unable to correctly identify the largest figure. Pt was able to answer all listening comprehension questions. Cognitive Comments Cognitive Assessment Comments Pt's SLUMS score of 17/30 puts him into the dementia category of test results. Pt would benefit from further testing with testing that doesn't require any writing. Of note, pt states items in the memory section that are not a part of the SLUMS but are a part of other cognitive assessments, therefore it is likely that the pt has been given some cog assessments in the past. M7 OT- IP Mobility and Balance Start: 05/07/22 12:13 Freq: Status: Active Protocol: Document 05/09/22 12:36 CGR (Rec: 05/09/22 13:35 CGR [id number]) OT- Bed Mobility Assessment Supine to Sit Supine to Sit Assist Moderate Assistance,2 Person Assistance Scooting Scooting to Edge of Bed Moderate Assistance,1 Person Assistance OT-Transfer Assessment Sit to and From Stand Sit to and from Stand Moderate Assistance,Maximum Assistance,2 Person Assistance Transfers Transfer Ability Maximum Assistance,2 Person Assistance Technique Transfer Destination Bed,Chair Transfer Technique Stand Step Pivot Devices Transfer Assistive Devices Gait Belt,Front Wheeled Walker Comments Mobility Comments Pt stood for the transfer to the chair then stood x3 with steps in between. See P.T. note for more information. OT- Gait Assessment Comments Gait Ability Comments see P.T. note OT- Balance Assessment Sitting Balance and Reactions Static Sitting Balance Ability Poor Dynamic Sitting Balance Ability Poor M8 OT- IP Objective Assessments Start: 05/07/22 12:13 Freq: Status: Active Protocol: Document 05/07/22 12:13 CGR (Rec: 05/07/22 12:37 CGR [id number]) OT Gross Range of Motion Upper Extremity Range of Motion ROM Impairments AAROM WFL OT Strength Upper Extremity Strength Assessment Bilaterally Impaired Comments Strength Comments R weaker than L R grossly 2/5 L grossly 2+ to 3-/5 OT- Coordination Assessment Upper Extremity Finger to Nose Test Bilateral UE Impaired Finger Tapping Test Bilateral UE Impaired OT-Muscle Tone Assessment Muscle Tone WNL Yes OT Sensation Assessment Edema Edema Absent M9 OT- IP Assessment and Plan Start: 05/07/22 12:13 Freq: Status: Active Protocol: Document 05/09/22 12:36 CGR (Rec: 05/09/22 13:35 CGR [id number]) OT Summary Assessment and Plan Potential Rehabilitation Potential Good Analytic Complexity at Evaluation High Summary OT Impairments Pain,Strength,Balance, Coordination,Functional Cognition,Functional Mobility, Self-Feeding,Grooming,Dressing ,Toileting,Bathing,Toilet Transfers,Shower Transfers, Activity Tolerance Progress Towards Goals Slow Progress due to Medical Issues Assessment Summary Pt presents as a high complexity evaluation s/p admit for generalized weakness and detox symptoms. Pt has a hx of IV poly substance use and 2016 CVA with R sided weakness. Pt continues to display profound weakness and needed more assist with mobility on this date. Pt still with good participation but poor endurance. Pt was too fatigued to participate in ADLs after mobility but was agreeable to participating with the SLUMS. Pt would benefit from SNF upon discharge. Goals Self-Feeding Goal Independent Grooming Goal Independent Dressing Goal Independent Toileting Goal Independent Bathing Goal Independent Toilet Transfer Goal Independent Shower Transfer Goal Independent Days to Meet Goals 30 Frequency of Treatment Frequency Of Treatment Once a Day Treatment Plan OT Treatment Plan ADL Training,Functional Cognition Training,Functional Mobility,Neuromuscular Re- education,Therapeutic Exercises,Patient/Family Education,Discharge Planning Other Treatment Recommendations and Next sitting balance with ADLs Treatment Focus Discharge Recommendations OT Discharge Recommendations SNF Rehab Transportation Needs at Discharge Wheelchair/Cabulance
--- NOTE | 2022-05-09 13:06 | DIET.CONS ---
Dietary Consultation Note Admission Date: 05/01/2022 04:28 Assessment: 62y M admitted for suspected right sided CVA referred to nutrition for MNA 6 (malnourished). Pt tolerating pureed diet, however, POs 5 to 25%, usually 5 bites with 1:1 assist from QUALITY ASSURANCE ENGINEER. Kitchen sent up ONS chocolate protein smoothie last evening and again today. Pt has consumed 50% shake with 1:1 help. States he likes them and would like them with meals. Chocolate protein smoothie tid meets 90% protein and 60% kcal needs if consumed 100%. Kitchen to send 1/2 meal tray and smoothies tid. Pt active IVDU, had sobriety 9y ago and again for short time in 2019. When sober, pt body weight +10kg but when using, drops to BMI 20.2. Nutrition physical exam shows severe loss of subcutaneous fat system wide, moderate reduced muscle mass with PT notes stating pt 2p assist, pt with reduced dexterity requiring 1:1 feed at this time. Pt able to chat c RD today for first time since admit and make eye contact, though only one and two word answers. Ht: 177.8 cm Wt: 63.8 kg BMI: 20.2 UBW: 72kg Last BM: 05/07/22 (05/07/22 11:43) MNA: 6 Wilmer Score: 14 Diet: 05/07/22 Lunch Dysphagia Diet Diet Modifications: Liquid consistency: Normal/Thin Food texture: Dysphagia Pureed Nutrition Percent Meal Consumed 5 05/09/22 08:20 Percent Meal Consumed 10 05/08/22 18:00 Percent Meal Consumed 25% 05/07/22 17:29 Labs: RBC 5.09 X10^6/uL (4.5-5.9) 05/09/22 05:39 Hgb 11.2 g/dL (13.5-17.5) L 05/09/22 05:39 Hct 34.6 % (41-53) L 05/09/22 05:39 Creatinine 0.41 mg/dL (0.66-1.25) L 05/09/22 05:39 Hemoglobin A1c 5.8 % (4.0-6.0) 05/01/22 06:50 Nutrition Diagnosis: Moderate chronic malnutrition r/t social and psychological reasons aeb BMI 20.2 (low for age), pt active IVDU in withdrawal, pt food and housing insecure, currently 2p assist c need for 1:1 feeding on puree diet c POs 5 to 25%. Interventions: 1. Continue ONS chocolate protein smoothie meeting 90% pro and 60% kcal needs. Recc with 1/2 portion dysphagia tray. 2. Recc 1:1 feed breaking up into several mini feeding sessions. EER: 82g PRO (1.3g/kg per PCM), 1800kcal (30kcal/kg) Monitoring/Evaluations: POs, ONS tolerance, self-feeding ability changes Electronically Signed by: Michaela Alicea 05/09/22 13:06 Clinical Dietitian [address] [address]
--- NOTE | 2022-05-09 13:41 | CM.DPC ---
Addendum entered by Roya More R.N. 05/09/22 15:06: Spoke to [facility] this afternoon. [facility] to send medical social consultant for an assessment tomorrow 05/10/22. ADJ Original Note: DCP Cont: DCP spoke with [facility] office and pt does receive food and medical benefits but no caregiving benefits. The address that is in the system is correct. Pt does live in [place] and not [place]. AUTUMNP continuing to work on a facility that would accept this patient but due to his polysubstance abuse, it has been difficult. GISSELLE to continue working on a safe plan for this patient. Roya More RN/GISSELLE
--- NOTE | 2022-05-09 13:53 | P.HP_ITS ---
History of Present Illness History of Present Illness Chief complaint: Suspected right sided CVA Patient History Medical History (Updated 05/02/22 @ 00:00 by ) Asthma Chronic back pain greater than 3 months duration Closed intertrochanteric fracture of left femur Depression Drug abuse, IV History of CVA (cerebrovascular accident) Surgical History History of hernia repair Family & Social History Family History Father Unknown family medical history Mother No problems noted. Grandmother Myocardial infarction Grandfather No problems noted. Social History: household members friend(s) Prior Living Arrangements Mobile home Safety & Behavioral: Feels Safe in Current Yes Environment Been Physically Hurt or No Threatened By a Person Tobacco & Substance use: Tobacco type cigarettes,cannabis/marijuana Smoking Status Current some day smoker alcohol intake current alcohol intake frequency a few times a month Substance Use Type marijuana,opiates,IV drugs,heroin Meds Home Medications and Allergies Home Medications Medication Instructions Recorded Confirmed Type sertraline 100 mg tablet (Zoloft) 100 mg PO DAILY 05/11/21 05/02/22 History acetaminophen 325 mg tablet 650 mg PO Q6HR PRN Fever/Mild Pain 05/12/21 05/01/22 Rx (1-3) #30 tabs fluticasone 250 mcg-salmeterol 50 1 inh inhalation BID #1 ea 05/12/21 05/02/22 Rx mcg/dose blistr powdr for inhalation albuterol sulfate 90 mcg/actuation 1 puff inhalation BID 05/01/22 05/01/22 History aerosol inhaler tiotropium bromide 2.5 2 puff inhalation DAILY 05/01/22 05/01/22 History mcg/actuation mist for inhalation (Spiriva Respimat) Allergies Allergy/AdvReac Type Severity Reaction Status Date / Time amoxicillin [AMOXICILLIN] Allergy Unknown DOES NOT Verified 04/30/22 17:34 REMEMBER SOMETHING NOT GOOD Penicillins [PENICILLINS] Allergy Unknown CAN'T Verified 04/30/22 17:34 REMEMBER RX Exam Vital Signs (past 8 hours): - 05/09/22 07:45 05/09/22 09:46 Temperature 97.9 F Pulse Rate 66 74 Respiratory Rate 18 15 Blood Pressure 163/75 H 155/84 H Pulse Oximetry 96 Oxygen Flow Rate 0 Oxygen Delivery Method Room Air Oxygen Flow Rate 0 Const General: cooperative Objective Labs Result Diagrams: 05/09/22 05:39 05/09/22 05:39 Labs: Laboratory Results - last 24 hr 05/09/22 05/09/22 05:39 05:39 WBC 8.4 RBC 5.09 Hgb 11.2 L Hct 34.6 L MCV 68.0 L MCH 21.9 L MCHC 32.2 RDW 19.5 H Plt Count 271 Neut % (Auto) 73.7 Lymph % (Auto) 18.2 L Marshall % (Auto) 6.9 Eos % (Auto) 0.9 L Baso % (Auto) 0.3 Neut # (Auto) 6200 Lymph # (Auto) 1500 Marshall # (Auto) 600 Eos # (Auto) 100 Baso # (Auto) 0 RBC Morphology See below Hypochromasia 1+ H Anisocytosis 1+ H Microcytosis 2+ H Sodium 137 Potassium 3.7 Chloride 101 Carbon Dioxide 31 BUN 8 L Creatinine 0.41 L Estimated GFR > 60 BUN/Creatinine Ratio 19.5 Glucose 90 Calcium 8.3 L Assessment & Plan Time Spent With Patient Critical Care time: I spent a total of [] minutes of critical care time on this patient's care today; this time is exclusive of procedural time. Quality VTE Deep Vein Thrombosis/Pulmonary Embolism Present on Admission: No
[2022-05-09 14:30] VITALS: BP 132/74; PULSE 67; RESP 18; TEMP 36.4; O2SAT 95
[2022-05-09 20:00] VITALS: BP 150/77; PULSE 58; PULSE 67; RESP 16; RESP 18; TEMP 36.2; O2SAT 100; O2SAT 95
[2022-05-09] MEDS: ALBUTEROL 2.5 MG/3 ML NEB (ADULT) INH (20:00)
[2022-05-09] MEDS: ATORVASTATIN 20 MG TABLET 40 MG PO (22:17)
[2022-05-10] VITALS (9 sets, daily range): BP systolic 132–164; BP diastolic 68–89; PULSE 61–97; RESP 16–18; TEMP 36.6–37.4; O2SAT 93–99
[2022-05-10] MEDS: SODIUM CHLORIDE 0.9% 1,000 ML 100 ML IV ×2 (00:32→10:21)
[2022-05-10] MEDS: LORazepam 2 MG/ML INJ IV ×2 (00:33→21:39)
[2022-05-10] MEDS: SODIUM CHLORIDE 0.9% FLUSH 10 ML IV (00:33)
[2022-05-10 07:00] LABS: Add Manual Diff / Slide Review NO; Basophils Absolute Auto 0 /uL (0-100); Basophils Percent Auto 0.4 % (0-2); Eosinophils Absolute Auto 200 /uL (0-450); Eosinophils Percent Auto 2.9 % (2-4); Hematocrit 35.1 % (41-53); Hemoglobin 11.4 g/dL (13.5-17.5); Lymphocytes Absolute Auto 1600 /uL (1100-4500); Lymphocytes Percent Auto 20.7 % (25-40); Mean Corpuscular HGB Conc 32.6 % (30-36); Mean Corpuscular Hemoglobin 22.1 PG (26-34); Mean Corpuscular Volume 67.9 fL (80-100); Monocytes Absolute Auto 600 /uL (0-900); Monocytes Percent Auto 8.2 % (3-14); Neutrophils Absolute Auto 5200 /uL (1500-7000); Neutrophils Percent Auto 67.8 % (50-75); Platelet Count 287 X10^3/uL (150-400); Red Blood Cell Count 5.17 X10^6/uL (4.5-5.9); White Blood Cell Count 7.6 X10^3/uL (4.5-11.0)
[2022-05-10 07:16] LABS: BUN Creatinine Ratio 17.5 (6-22); Blood Urea Nitrogen 7 mg/dL (9-20); Calcium 8.2 mg/dL (8.4-10.2); Carbon Dioxide 31 mmol/L (22-32); Chloride 101 mmol/L (98-107); Estimated Glomerular Filt Rate > 60 mL/min (>60); Glucose 87 mg/dL (80-110); HEMOLYSIS < 15 (0-50); Potassium 3.5 mmol/L (3.4-5.1); Sodium 138 mmol/L (137-145)
[2022-05-10 07:56] LABS: Microcytosis 2+
[2022-05-10 07:57] LABS: Anisocytosis 1+; Hypochromasia 1+
[2022-05-10] MEDS: FLUCONAZOLE 100 MG TABLET 200 MG PO (09:37)
[2022-05-10] MEDS: ASPIRIN EC 81 MG TABLET PO (09:38)
[2022-05-10] MEDS: ENOXAPARIN 40 MG/0.4 ML SYRINGE SUBCUT (09:38)
[2022-05-10] MEDS: SERTRALINE 50 MG TABLET 100 MG PO (09:38)
[2022-05-10] MEDS: FOLIC ACID 1 MG TABLET PO (09:38)
[2022-05-10] MEDS: MULTIVITAMIN 1 TABLET 1 TAB PO (09:38)
[2022-05-10] MEDS: POTASSIUM CHLORIDE 20 MEQ TAB 40 MEQ PO (09:38)
--- NOTE | 2022-05-10 09:44 | SLP.IPNOTE ---
Attempted to see pt at 9:15. Pt was asleep when CORRECTIONAL NURSE arrived, but awoke to verbal and tactile cues. He agreed to participate in PO trials and was repositioned to upright position with assistance of NSG. When in upright position, pt fell asleep and was minimally responsive to verbal and tactile cues. Not safe for PO trials at this time, will attempt again this afternoon. NSG reported pt has a headache today and continues to experience pain from withdrawal.
--- NOTE | 2022-05-10 10:45 | CM.DPC ---
Addendum entered by Claudia Segal R.N. 05/10/22 15:52: Attempted to speak to patient, he was laying in bed, speaking in whispers. Asked him if he resides in [place] versus [facility], and he stated, [place]. Asked him if he knew of anyone to assist him at discharge, and stated, he has no one. Asked him if he would be willing to go to a skilled rehab, or an adult family home as far as [place], and patient nodded. He continues to be weak. Will contact Maria Fernanda again tomorrow with an update. Addendum entered by Claudia Segal R.N. 05/10/22 11:55: Spoke to Maria Fernandatolu Danielle with [facility], Home and Community Services. She indicated that she would need to do a virtual assessment on patient once he is more medically stable. She stated she has an adult family home in mind in [facility], he would need to be off IV medications, as far as ferry terminal agent care goes, if patient is willing to go into permanent ferry terminal agent care. This will need to be discussed with patient. Will attempt to get more information regarding medical stability, and conversation will need to be had with patient. He will be working further with P.T. Original Note: DCP Cont: It is noted that a [facility] [employer] was to be seeing patient, but do not have name or number. Contacted [facility] and spoke to Yudith at [facility]. She was able to look patient up regarding Home and Community Services, and stated that case was assigned to Maria Fernanda Danielle. Her number is: [phone]. Will call her. According to Yudith, she is based out of the [place] office. During team rounds it was mentioned that patient is a two person max assist, and needs assistance with feeding. P: DCP to continue to follow. Will contact Maria Fernanda today. Claudia Segal RN/Spa Technician
[2022-05-10] MEDS: ACETAMINOPHEN 325 MG TABLET PO ×2 (11:00→18:56)
--- NOTE | 2022-05-10 11:31 | PT.IPTN ---
Current Diagnoses Cerebral infarction, unspecified (05/01/22) Physical Therapy Treatment Note M2 PT-IP Current Condition Start: 05/07/22 09:18 Freq: NEEDED Status: Active Protocol: Document 05/07/22 11:05 AW (Rec: 05/07/22 12:44 AW [id number]) Physical Therapy Current Condition Current Condition Evaluation Date 05/07/22 Treatment Diagnosis metabolic encephalopathy; polysubstance withdrawal; impaired mobility Onset Date 04/30/22 M3 PT-IP Subjective Start: 05/07/22 09:18 Freq: NEEDED Status: Active Protocol: Document 05/10/22 11:14 KS (Rec: 05/10/22 12:34 KS [id number]) Subjective Physical Therapy Visit Type Type Treatment Note Visit Start Time 11:14 Visit Stop Time 11:31 Total Visit Minutes 17 Notes co-treat w/ OT due to pt's need for increased level of assist. Physical Therapy Visit Comments Patient Comments Pt more awake and responsive today. M4 PT-IP Mobility and Gait Start: 05/07/22 09:18 Freq: NEEDED Status: Active Protocol: Document 05/10/22 11:14 KS (Rec: 05/10/22 12:34 KS [id number]) PT-Bed Mobility Assessment Supine to Sit Supine to Sit Minimal Assistance,2 Person Assistance,Head of Bed Elevated Scooting Scooting to Edge of Bed Minimal Assistance PT-Transfer Assessment Sit to and From Stand Sit to and from Stand Moderate Assistance,1 Person Assistance,Use of Upper Extremities Equipment Transfer Assistive Device Gait Belt,Front Wheeled Walker Orthotic/Prosthetic Devices or Brace: No Transfers Transfer Destination Chair Transfer Technique Pt ambulated w/ FWW Transfer Ability Level of Assist Moderate Assistance,2 Person Assistance,Use of Upper Extremities Comments Mobility Comments Pt in bed upon arrival and agreeable to mobilize. Min A x2 for sit<>stand w/ FWW. Mod A x1 for sit<>stand w/ FWW on first attempt w/ seemingly increased strength in L arm. Pt then ambulated ~5 ft to chair w/ FWW Mod A x2 and max cues. After seated rest break pt sit<>Stand w/ FWW Mod A and ambulated ~12 ft to sink w/ chair follow Mod A x2 w/ FWW and max cues, R knee buckling. Pt still needing assist moving FWW, but had increased ability today. Pt w/ increased fatigue following and left w/ OT. Gait Assessment Gait Gait Assistance Required: Moderate Assistance,2 Person Assist Distance (Feet) 12 Assistive Devices Assistive Device Gait Belt,Front Wheeled Walker Orthotic/Prosthetic Devices or Brace: No Gait Deviations General Gait Pattern Ataxic,Decreased Stride Length ,Decreased Feet Clearance, Flexed Trunk,Lateral Trunk Lean Factors Limiting Gait Function Factors Limiting Gait Function Decreased Activity Tolerance, Decreased Strength,Difficulty Following Directions, Incoordination,Pain,Poor Balance,Poor Safety Awareness Comments Gait Comments See mobility comments for details. Stair Climbing Assessment Comments Stair Climbing Comments Not assessed. PT-Balance Assessment Sitting Balance and Reactions Static Sitting Balance Ability Poor Dynamic Sitting Balance Ability Poor Standing Balance and Reactions Static Standing Balance Ability Poor Dynamic Standing Balance Ability Poor Device Used FWW M5 PT-IP Objective Assessments Start: 05/07/22 09:18 Freq: NEEDED Status: Active Protocol: Document 05/07/22 11:05 AW (Rec: 05/07/22 13:30 AW [id number]) Orientation Orientation/Cognition Level of Alertness Lethargic Orientation Name,Month,Place Safety Awareness Decreased Safety Awareness Gross Range of Motion Lower Extremity ROM Assessment Within Functional Limits Strength Lower Extremity Strength Assessment Bilaterally Impaired Comments Strength Comments R grossly 3-/5. L grossly 3+/5 Coordination Assessment Gross Coordination Gross Coordination Impaired Assessment Finger to Nose Test Activity Impossible Foot Tapping Test Minimal Impairment Coordination Comments Pt limited by BUE weakness with UE coordination testing. Sensation Assessment Sensation Gross Sensation WNL Muscle Tone Muscle Tone WNL Yes M6 PT-IP Treatment Start: 05/07/22 09:18 Freq: NEEDED Status: Active Protocol: Document 05/10/22 11:14 KS (Rec: 05/10/22 12:34 KS [id number]) Physical Therapy Treatment Education Education Provided Safety M7 PT-IP Assessment and Plan Start: 05/07/22 09:18 Freq: NEEDED Status: Active Protocol: Document 05/10/22 11:14 KS (Rec: 05/10/22 12:34 KS [id number]) PT Summary Assessment and Plan Potential Rehabilitation Potential Fair Status of Condition at Evaluation Evolving Summary Impairments Strength,Balance,Coordination, Cognition,Bed Mobility, Transfers,Gait Assessment Summary Pt showing improvement w/ bed mobility, ambulation w/ FWW and activity tolerance today. Still requiring Mod A x2 for ambulation w/ FWW and max verbal and tactile cues but able to walk 12 ft w/ chair follow w/ improved gait and FWW management, although has R knee buckling and increased tone in R arm following. Pt will require SNF to improve strength and functional mobility independence. Goals Bed Mobility Goal Contact Guard Assistance Transfer Goal Standby Assistance,Front Wheeled Walker Gait Goal Standby Assistance,Front Wheel Walker Gait Distance 150 Other Goals up/down 4 steps with rails SBA - improve transfers and gait to SBA with 4WW Days to Meet Goals 10 Frequency of Treatment Frequency Of Treatment Once a Day Treatment Plan Physical Therapy Treatment Plan Bed Mobility Training,Transfer Training,Gait Training, Therapeutic Exercise,Balance Retraining,Discharge Planning, Hot or Cold Pack,Neuromuscular Re-ed,Coordination Retraining Precautions Other Precautions seizure precautions; falls risk Recommendations To Nursing Amount of Assist Needed 2 Person Assist Discharge Recommendations PT Discharge Recommendations Home with 17/06 Assist Available,Home Health,SNF Rehab,Home vs SNF Equipment Needed for Home Before FWW if unsafe with 4WW Discharge Transportation Needs at Discharge Private Vehicle,Wheelchair/ Cabulance
--- NOTE | 2022-05-10 11:40 | OT.IP.TRT ---
Current Diagnoses Cerebral infarction, unspecified (05/01/22) Occupational Therapy Treatment Note M2 OT-IP Current Condition Start: 05/07/22 12:13 Freq: Status: Active Protocol: Document 05/07/22 12:13 CGR (Rec: 05/07/22 12:37 CGR [id number]) Occupational Therapy Current Condition Current Condition Evaluation Date 05/07/22 Treatment Diagnosis generalized weakness, hx IV drug use, R CVA 2016 Diagnosis Onset Date 05/01/22 M3 OT- IP Subjective and Pain Start: 05/07/22 12:13 Freq: Status: Active Protocol: Document 05/10/22 12:42 CGR (Rec: 05/10/22 12:49 CGR [id number]) OT- Subjective Occupational Therapy Visit Type Type Progress Note Visit Start Time 11:14 Visit Stop Time 11:40 Total Visit Minutes 26 Notes Partial co-treat with P.T. M4 OT- IP ADL's Start: 05/07/22 12:13 Freq: Status: Active Protocol: Document 05/10/22 12:42 CGR (Rec: 05/10/22 12:49 CGR [id number]) OT [id number] General Evaluation Self-Feeding Ability Maximum Assistance Comments OT Self-Feeding Comments pt took a few bites of breakfast with max a. OT ADL-Grooming General Evaluation Grooming Ability Standby Assistance Areas Needing Assistance Face Washing Comments OT Grooming Comments seated at sink OT ADL-Oral Care Comments Oral Care Comments not performed OT ADL-Dressing General Eval Lower Body Dressing Ability Total Assistance OT ADL-Toileting General Evaluation Toileting Ability Total Assistance Areas Needing Assistance Manage Clothing,Perform Perineal Hygiene Comments OT Toileting Comments Pt states his brief is wet upon therapy arrival. Donned clean brief and removed old brief when pt stood. OT ADL-Bathing Comments OT Bathing Comments not performed but pt requesting shower on this date . M5 OT- IP IADL's Start: 05/07/22 12:13 Freq: Status: Active Protocol: Document 05/07/22 12:13 CGR (Rec: 05/07/22 12:37 CGR [id number]) OT-Instrumental Activities of Daily Living Deficits IADL Deficits Identified Deficits Home Safety Awareness Awareness of Need for Assistance at Home Decreased Awareness Ability to Problem Solve Emergency Unable to Problem Solve Situations Medication Management Medication Management Comments Concerns about pt's ability to perform consistently Money Management Money Management Comments Concerns about pt's ability to perform consistently Meal Preparation Meal Preparation Comments Concerns about pt's ability to perform consistently Door Puller Door Puller Comments Concerns about pt's ability to perform consistently M6 OT- IP Functional Cognition Start: 05/07/22 12:13 Freq: Status: Active Protocol: Document 05/09/22 12:36 CGR (Rec: 05/09/22 13:35 CGR [id number]) Cognitive Factors Limiting Selfcare Function Cognitive Ability Level of Alertness Drowsy Patient Orientation Name,Age,Month,Year,Day of Week,Place Attention Span Ability Capable of Focused Attention, Capable of Sustained Attention Ability to Follow Commands Able to Follow One Step Commands with Increased Time, Able to Follow One Step Commands with Repetition Cognitive Tests SLUMS Pt was able to participate in SLUMS on this date with a score of 17/30. Pt was oriented to the day of the week, the year, and the state. Pt was able to do simple math and state 10 animals in one minute. Pt was unable to remember any of the 5 objects and was unable to perform backwards series of numbers. Pt earned no points for the clock face which may be d/t his UE weakness and inabiltiy to write vs his cognition. Pt was able to put an x in the triangle but unable to correctly identify the largest figure. Pt was able to answer all listening comprehension questions. Cognitive Comments Cognitive Assessment Comments Pt's SLUMS score of 17/30 puts him into the dementia category of test results. Pt would benefit from further testing with testing that doesn't require any writing. Of note, pt states items in the memory section that are not a part of the SLUMS but are a part of other cognitive assessments, therefore it is likely that the pt has been given some cog assessments in the past. M7 OT- IP Mobility and Balance Start: 05/07/22 12:13 Freq: Status: Active Protocol: Document 05/10/22 12:42 CGR (Rec: 05/10/22 12:49 CGR [id number]) OT- Bed Mobility Assessment Supine to Sit Supine to Sit Assist Minimal Assistance,2 Person Assistance Scooting Scooting to Edge of Bed Minimal Assistance OT-Transfer Assessment Sit to and From Stand Sit to and from Stand Moderate Assistance,1 Person Assistance Transfers Transfer Ability Moderate Assistance,2 Person Assistance Technique Transfer Destination Bed,Chair Transfer Technique Stand Step Pivot Devices Transfer Assistive Devices Gait Belt,Front Wheeled Walker Comments Mobility Comments Pt was able to ambulate a few feet to the chair from the bed , then after a rest break ambulated ~12 feet from chair to sink with 2 person mod a and thrid person for chair follow. OT- Balance Assessment Sitting Balance and Reactions Static Sitting Balance Ability Poor Dynamic Sitting Balance Ability Poor M8 OT- IP Objective Assessments Start: 05/07/22 12:13 Freq: Status: Active Protocol: Document 05/07/22 12:13 CGR (Rec: 05/07/22 12:37 CGR [id number]) OT Gross Range of Motion Upper Extremity Range of Motion ROM Impairments AAROM WFL OT Strength Upper Extremity Strength Assessment Bilaterally Impaired Comments Strength Comments R weaker than L R grossly 2/5 L grossly 2+ to 3-/5 OT- Coordination Assessment Upper Extremity Finger to Nose Test Bilateral UE Impaired Finger Tapping Test Bilateral UE Impaired OT-Muscle Tone Assessment Muscle Tone WNL Yes OT Sensation Assessment Edema Edema Absent M9 OT- IP Assessment and Plan Start: 05/07/22 12:13 Freq: Status: Active Protocol: Document 05/10/22 12:42 CGR (Rec: 05/10/22 12:49 CGR [id number]) OT Summary Assessment and Plan Potential Rehabilitation Potential Good Analytic Complexity at Evaluation High Summary OT Impairments Pain,Strength,Balance, Coordination,Functional Cognition,Functional Mobility, Self-Feeding,Grooming,Dressing ,Toileting,Bathing,Toilet Transfers,Shower Transfers, Activity Tolerance Progress Towards Goals Slow Progress due to Medical Issues Assessment Summary Pt presents as a high complexity evaluation s/p admit for generalized weakness and detox symptoms. Pt has a hx of IV poly substance use and 2016 CVA with R sided weakness. Pt presents with increased arousal on this date and was able to ambulate further with slightly less assist. Noted tone to the RUE not seen in the past few days likely d/t profound weakness. Pt will continue to benefit from therapy services. Pt was able to scoot himself back in the chair with verbal cues and this writers foot placed in front of his to prevent his feet from slipping. Pt left sitting up in chair with call button and chair fall alarm armed. Goals Self-Feeding Goal Independent Grooming Goal Independent Dressing Goal Independent Toileting Goal Independent Bathing Goal Independent Toilet Transfer Goal Independent Shower Transfer Goal Independent Days to Meet Goals 30 Frequency of Treatment Frequency Of Treatment Once a Day Treatment Plan OT Treatment Plan ADL Training,Functional Cognition Training,Functional Mobility,Neuromuscular Re- education,Therapeutic Exercises,Patient/Family Education,Discharge Planning Other Treatment Recommendations and Next sitting balance with ADLs Treatment Focus Discharge Recommendations OT Discharge Recommendations SNF Rehab Transportation Needs at Discharge Wheelchair/Cabulance
--- NOTE | 2022-05-10 12:24 | P.PN_ITS ---
Subjective Subjective Interval history: pt is feeling very weak, he opens eyes when called his name, he interacts , cooperative and speaking few words he denies chest pain, nausea, vomiting. He c/o moderate headache 07/04 Exam Vital Signs (past 8 hours): - 05/10/22 05:00 05/10/22 06:00 05/10/22 07:32 Temperature 97.9 F 98.1 F Pulse Rate 73 62 67 Respiratory Rate 18 18 16 Blood Pressure 157/75 H 153/79 H 164/88 H Pulse Oximetry 95 93 99 Oxygen Flow Rate 0 0 Oxygen Delivery Method Room Air Oxygen Flow Rate 0 Const General: cooperative and frail appearing Orientation: alert, awake and oriented x3 HENMT Head: normal to inspection Ears: external ears normal Mouth: oral mucosae normal Eyes Pupils: PERRL EOM: EOM intact bilaterally Neck Neck: normal visual inspection and full ROM Resp Effort & Inspection: normal respiratory effort Auscultation: clear to auscultation bilaterally Cardio Rate: regular rate Rhythm: regular rhythm GI Palpation: soft and no hepatosplenomegaly Auscultation: normal bowel sounds Skin General: no rashes or lesions noted Neuro General: patient alert, patient awake, patient oriented x3, moves all extremities and no focal motor deficits Speech: speech normal Extrem General: normal to inspection (multiple crusted lesions in both legs), full ROM and no pedal edema Psych Appearance: grossly normal Objective Labs Result Diagrams: 05/10/22 06:54 05/10/22 06:54 Labs: Laboratory Results - last 24 hr 05/10/22 05/10/22 06:54 06:54 WBC 7.6 RBC 5.17 Hgb 11.4 L Hct 35.1 L MCV 67.9 L MCH 22.1 L MCHC 32.6 RDW 20.0 H Plt Count 287 Neut % (Auto) 67.8 Lymph % (Auto) 20.7 L [place] % (Auto) 8.2 Eos % (Auto) 2.9 Baso % (Auto) 0.4 Neut # (Auto) 5200 Lymph # (Auto) 1600 [place] # (Auto) 600 Eos # (Auto) 200 Baso # (Auto) 0 RBC Morphology See below Hypochromasia 1+ H Anisocytosis 1+ H Microcytosis 2+ H Sodium 138 Potassium 3.5 Chloride 101 Carbon Dioxide 31 BUN 7 L Creatinine 0.40 L Estimated GFR > 60 BUN/Creatinine Ratio 17.5 Glucose 87 Calcium 8.2 L [facility] Medical History (Updated 05/02/22 @ 00:00 by ) Asthma Chronic back pain greater than 3 months duration Closed intertrochanteric fracture of left femur Depression Drug abuse, IV History of CVA (cerebrovascular accident) Surgical History History of hernia repair Family History Father Unknown family medical history Mother No problems noted. Grandmother Myocardial infarction Grandfather No problems noted. Social History household members: friend(s) Smoking Status: Current some day smoker alcohol intake: current Assessment & Plan Assessment & Plan narrative: Assesment/Plan: Altered mental status/metabolic encephalopathy likely multifactorial and mainly related to intermediate frame tender IVDA , polysubstance abuse etc improved mentation -continue CIWA -continue close monitoring -continue PT/OT Acute respiratory failure resolved secondary to pneumonia ( group A strep) - treated with IV ceftriaxone and a zithromycin clinically stable on RA with good sats - keep sats > 93% ? Hypertension BP 160 systolic -continue prn meds for high blood pressure > 160 -close monitoring vitals Hyperlipidemia ?- continue atorvastatin H/O Polysubstance abuse/IVDA ?- counseled ? -HIV is pending Oral thrush ?- continue fluconazole ? DVT prophylaxis: lovenox Code status: full Disposition: difficult to find rehab for him due to above Discussed on meeting Time Spent With Patient Critical Care time: I spent a total of [] minutes of critical care time on this patient's care today; this time is exclusive of procedural time. Quality VTE Deep Vein Thrombosis/Pulmonary Embolism Present on Admission: No
--- NOTE | 2022-05-10 13:59 | DIET.CONS2 ---
Dietary Inpatient Consultation Note Admission Date: 05/01/2022 04:28 RD Note: Chronically malnourished pt remains lethargic with meager POs (0-25%, 1:1 feeds) despite ONS initiation. Pt full code, hospitalized x9d. If pts POs not improving before weekend, recc consideration of NG placement for temporary enteral nutrition support until able to meet estimated nutrition needs from PO intake. Diet: 05/07/22 Lunch Dysphagia Diet Diet Modifications: Liquid consistency: Normal/Thin Food texture: Dysphagia Pureed Nutrition Percent Meal Consumed 05/09/22 08:20 Percent Meal Consumed 05/08/22 18:00 Electronically Signed by: Michaela Alicea 05/10/22 13:59 [address] [address]
--- NOTE | 2022-05-10 14:05 | ST.IPDYTX ---
Visit Care Team Role Provider Type Kenney Joshi MD Family Provider Non-Staff Primary Care Provider Specialty: Family Practice Address: [address] , [address], [place], [address] Email: Richard Hannon DO Emergency Provider Physician Referring Provider Specialty: Emergency Medicine Address: [address] [place] [address], [address] Email: [email or web address] JONATHAN Sampson Admit Provider Physician Attending Provider Specialty: Internal Medicine Address: [address] [place] [address], [address] Email: [email or web address]IESEL TRAILER MECHANIC Dysphagia Treatment DIESEL TRAILER MECHANIC Clinical Instructor Line Start: 05/07/22 11:09 Freq: Status: Active Protocol: Document 05/07/22 11:09 HERMINIA (Rec: 05/07/22 11:09 HERMINIA [id number]) Clinical Instructor Signature Clinical Instructor Clinical Instructor Yes [employer] TRAILER MECHANIC Dysphagia Treatment Start: 05/07/22 09:45 Freq: Status: Active Protocol: Document 05/10/22 14:01 RACHELLE (Rec: 05/10/22 14:05 ZS [id number]) Dysphagia Treatment Session Time Visit Start Time 13:40 Visit Stop Time 13:55 Total Visit Minutes 15 Setting Assessment Location Acute Care Visit Type Note Type Treatment Note Next Note Type Next Note Type Treatment Note Patient Information Identification Type Name,ID Wristband Subjective Observations Pt was reclined in bed asleep upon DIESEL TRAILER MECHANIC arrival. He awoke to verbal and tactile cues and agreed to participate in PO trials. Pt was repositioned into upright position for PO trials. Treatment Liquids Trialed Thin Administration Type Straw,Dependent Feeding Pharyngeal Strategies Sitting Upright (90 deg),Chin Tuck Treatment Activities Targeted chin tuck with smoothie through straw cup. Pinched straw to control bolus size. Assessment Patient Response to Treatment Good Rehab Potential Good Assessment of Improvement Pt required multiple repetitions and verbal and tactile cues to use chin tuck for most bites. He spontaneously used chin tuck x2 following 4 trials with verbal and tactile reminders and practice positioning for swallow without food. He benefitted from smoothie being positioned lower to maintain chin tuck position for drinking. He exhibited a slight cough x1 and continues to have a very weak cough. Pt' s diet level recommended to continue as puree. Will continue to assess pt's swallow safety and upgrade diet as indicated. Diet Recommendations Recommendations Continue Current Diet Liquids Order Thin Diet Order Dysphagia Blenderized Medication Recommendations Whole in Carrier Additional Dietary Needs Single Sips,Controlled Sips,No Straws,1:1 Assistance, Encourage to Self-Feed, Reminders to Use Strategies Aspiration Precautions Recommended Precautions Upright at 90 Degrees,Frequent Rest Periods,Small Bites/Sips ,Chin Tuck,Check for Pocketing Treatment Plan Placement Recommendation after Discharge Half-Way Facility Appropriate for Continued Therapy Yes Therapy Recommendations Continue to see 1x daily over course of hospital stay to monitor progress and further assess/treat deficits as needed. Dysphagia Goals Pt to participate in ongoing evaluation of swallow safety with diet advancement as appropriate. Pt will safely tolerate least restrictive diet to meet his nutrition and hydration needs
[2022-05-10] MEDS: ALBUTEROL 2.5 MG/3 ML NEB (ADULT) INH (14:21)
[2022-05-10 19:07] LABS: HIV 1 & 2 Ab/Ag 4th Gen Combo NEGATIVE (NEGATIVE)
[2022-05-10] MEDS: ATORVASTATIN 20 MG TABLET 40 MG PO (20:35)
[2022-05-11] VITALS (8 sets, daily range): BP systolic 124–153; BP diastolic 73–86; PULSE 64–88; RESP 16–20; TEMP 36.4–37.3; O2SAT 93–97
[2022-05-11 05:02] LABS: Basophils Absolute Auto 0 /uL (0-100); Basophils Percent Auto 0.2 % (0-2); Eosinophils Absolute Auto 300 /uL (0-450); Eosinophils Percent Auto 3.9 % (2-4); Hematocrit 31.8 % (41-53); Hemoglobin 10.3 g/dL (13.5-17.5); Lymphocytes Absolute Auto 1600 /uL (1100-4500); Lymphocytes Percent Auto 24.7 % (25-40); Mean Corpuscular HGB Conc 32.2 % (30-36); Mean Corpuscular Hemoglobin 21.9 PG (26-34); Monocytes Absolute Auto 600 /uL (0-900); Monocytes Percent Auto 8.7 % (3-14); Neutrophils Absolute Auto 4100 /uL (1500-7000); Neutrophils Percent Auto 62.5 % (50-75); Platelet Count 246 X10^3/uL (150-400); Red Blood Cell Count 4.68 X10^6/uL (4.5-5.9); Red Cell Distribution Width 20.7 % (11.6-14.8); White Blood Cell Count 6.6 X10^3/uL (4.5-11.0)
[2022-05-11 05:03] LABS: Add Manual Diff / Slide Review SLIDE REVIEW
[2022-05-11 05:14] LABS: Blood Urea Nitrogen 5 mg/dL (9-20); Carbon Dioxide 26 mmol/L (22-32); Chloride 107 mmol/L (98-107); Potassium 2.9 mmol/L (3.4-5.1); Sodium 137 mmol/L (137-145)
[2022-05-11 05:15] LABS: BUN Creatinine Ratio 17.9 (6-22); Calcium 6.8 mg/dL (8.4-10.2); Estimated Glomerular Filt Rate > 60 mL/min (>60); Glucose 76 mg/dL (80-110); HEMOLYSIS 16 (0-50)
[2022-05-11 07:19] LABS: Anisocytosis 2+
[2022-05-11 07:20] LABS: Microcytosis 2+
[2022-05-11 07:21] LABS: Hypochromasia 1+
[2022-05-11] MEDS: SODIUM CHLORIDE 0.9% 1,000 ML 100 ML IV (09:38)
[2022-05-11] MEDS: ENOXAPARIN 40 MG/0.4 ML SYRINGE SUBCUT (09:38)
[2022-05-11] MEDS: FOLIC ACID 1 MG TABLET PO (09:39)
[2022-05-11] MEDS: NICOTINE 7 MG PATCH TOP (09:39)
[2022-05-11] MEDS: MULTIVITAMIN 1 TABLET 1 TAB PO (09:39)
[2022-05-11] MEDS: FLUCONAZOLE 100 MG TABLET 200 MG PO (09:39)
[2022-05-11] MEDS: ASPIRIN EC 81 MG TABLET PO (09:39)
[2022-05-11] MEDS: SERTRALINE 50 MG TABLET 100 MG PO (09:39)
--- NOTE | 2022-05-11 10:00 | ST.IPDYTX ---
Visit Care Team Role Provider Type Kenney Joshi MD Family Provider Non-Staff Primary Care Provider Specialty: Family Practice Address: [address] , [address], [place], [address] Email: Richard Hannon DO Emergency Provider Physician Referring Provider Specialty: Emergency Medicine Address: [address] [place] [address], [address] Email: [email or web address] JONATHAN Sampson Admit Provider Physician Attending Provider Specialty: Internal Medicine Address: [address] [place] [address], [address] Email: [email or web address] Dysphagia Treatment [employer]AW [employer]ED HEATER TENDER Clinical Instructor Line Start: 05/07/22 11:09 Freq: Status: Active Protocol: Document 05/07/22 11:09 HERMINIA (Rec: 05/07/22 11:09 HERMINIA [id number]) Clinical Instructor Signature Clinical Instructor Clinical Instructor Yes [employer]AW [employer] HEATER TENDER Dysphagia Treatment Start: 05/07/22 09:45 Freq: Status: Active Protocol: Document 05/11/22 09:57 ZS (Rec: 05/11/22 10:00 ZS [id number]) Dysphagia Treatment Session Time Visit Start Time 09:30 Visit Stop Time 09:45 Total Visit Minutes 15 Setting Assessment Location Acute Care Visit Type Note Type Treatment Note Next Note Type Next Note Type Treatment Note Patient Information Identification Type Name,ID Wristband Subjective Observations Pt was reclined in bed asleep upon THAW SHED HEATER TENDER arrival. He awoke to verbal and tactile cues and agreed to participate in PO trials. Pt was repositioned into upright position for PO trials. Treatment Liquids Trialed Thin Administration Type Straw,Dependent Feeding Pharyngeal Strategies Sitting Upright (90 deg),Chin Tuck Treatment Activities Targeted chin tuck with smoothie through straw cup. Assessment Patient Response to Treatment Good Rehab Potential Good Assessment of Improvement NSG reported pt ate about half of his smoothie for breakfast and a few sips of apple juice . Pt independently took smaller sips, eliminating the need for controlling bite size with straw pinching today. He required multiple repetitions and verbal cues to use chin tuck for most bites, though tactile cues were not needed today. He spontaneously used chin tuck x1 following 3 trials with verbal reminders. He benefitted from smoothie being positioned lower to maintain chin tuck position for drinking. No cough observed today. Pt's diet level recommended to continue as puree. Will continue to assess pt's swallow safety and upgrade diet as indicated. Diet Recommendations Recommendations Continue Current Diet Liquids Order Thin Diet Order Dysphagia Blenderized Medication Recommendations Whole in Carrier Additional Dietary Needs Single Sips,Controlled Sips,No Straws,1:1 Assistance, Encourage to Self-Feed, Reminders to Use Strategies Aspiration Precautions Recommended Precautions Upright at 90 Degrees,Frequent Rest Periods,Small Bites/Sips ,Chin Tuck,Check for Pocketing Treatment Plan Placement Recommendation after Discharge Residential Facility Appropriate for Continued Therapy Yes Therapy Recommendations Continue to see 1x daily over course of hospital stay to monitor progress and further assess/treat deficits as needed. Dysphagia Goals Pt to participate in ongoing evaluation of swallow safety with diet advancement as appropriate. Pt will safely tolerate least restrictive diet to meet his nutrition and hydration needs
[2022-05-11] MEDS: IPRATROPIUM 0.5 MG/2.5 ML NEB INH (10:10)
[2022-05-11] MEDS: ALBUTEROL 2.5 MG/3 ML NEB (ADULT) INH (10:10)
[2022-05-11] MEDS: POTASSIUM CHLORIDE IN WATER 10 MEQ/100 ML PIGGYBACK 100 MEQ IV ×2 (10:13→11:27)
--- NOTE | 2022-05-11 11:25 | PT.IPTN ---
Current Diagnoses Cerebral infarction, unspecified (05/01/22) Physical Therapy Treatment Note M2 PT-IP Current Condition Start: 05/07/22 09:18 Freq: NEEDED Status: Active Protocol: Document 05/07/22 11:05 AW (Rec: 05/07/22 12:44 AW [id number]) Physical Therapy Current Condition Current Condition Evaluation Date 05/07/22 Treatment Diagnosis metabolic encephalopathy; polysubstance withdrawal; impaired mobility Onset Date 04/30/22 M3 PT-IP Subjective Start: 05/07/22 09:18 Freq: NEEDED Status: Active Protocol: Document 05/11/22 11:10 KS (Rec: 05/11/22 12:02 KS [id number]) Subjective Physical Therapy Visit Type Type Treatment Note Visit Start Time 11:10 Visit Stop Time 11:25 Total Visit Minutes 15 Notes co-treat w/ OT due to pt's need for increased level of assist. M4 PT-IP Mobility and Gait Start: 05/07/22 09:18 Freq: NEEDED Status: Active Protocol: Document 05/11/22 11:10 KS (Rec: 05/11/22 12:02 KS [id number]) PT-Bed Mobility Assessment Supine to Sit Supine to Sit Moderate Assistance,1 Person Assistance,Head of Bed Elevated Scooting Scooting to Edge of Bed Minimal Assistance PT-Transfer Assessment Sit to and From Stand Sit to and from Stand Maximum Assistance,2 Person Assistance,Use of Upper Extremities Equipment Transfer Assistive Device Gait Belt,Front Wheeled Walker Orthotic/Prosthetic Devices or Brace: No Transfers Transfer Destination Bed Transfer Technique sit<>stand Transfer Ability Level of Assist Maximum Assistance,2 Person Assistance,Use of Upper Extremities Comments Mobility Comments Pt in bed upon arrival and wanting to take shower, but needed IV to remain. Pt Mod A for sup<>sit and Min A for scooting EOB. Once EOB, pt had decreased trunk control needing Min A to maintain. Pt agreeable to ambulation, took two attempts and MAx A x2 for sit<>stand w/ FWW today. Pt had RLE buckling and RUE increased tone and was unable to keep knee straight and hand on FWW hand even with assist. He had increased difficulty standing and was not able to space feet apart for better MARLA. Pt fatigued and sat back down and unable to partcipate further. Max A for sit<>sup and scooting up in bed. Pt left in bed w/ all needs in reach and alarm on. Gait Assessment Comments Gait Comments Unable to perform today. Stair Climbing Assessment Comments Stair Climbing Comments Not assessed. PT-Balance Assessment Sitting Balance and Reactions Static Sitting Balance Ability Poor Dynamic Sitting Balance Ability Poor Standing Balance and Reactions Static Standing Balance Ability Poor Dynamic Standing Balance Ability Poor Device Used FWW M5 PT-IP Objective Assessments Start: 05/07/22 09:18 Freq: NEEDED Status: Active Protocol: Document 05/07/22 11:05 AW (Rec: 05/07/22 13:30 AW [id number]) Orientation Orientation/Cognition Level of Alertness Lethargic Orientation Name,Month,Place Safety Awareness Decreased Safety Awareness Gross Range of Motion Lower Extremity ROM Assessment Within Functional Limits Strength Lower Extremity Strength Assessment Bilaterally Impaired Comments Strength Comments R grossly 3-/5. L grossly 3+/5 Coordination Assessment Gross Coordination Gross Coordination Impaired Assessment Finger to Nose Test Activity Impossible Foot Tapping Test Minimal Impairment Coordination Comments Pt limited by BUE weakness with UE coordination testing. Sensation Assessment Sensation Gross Sensation WNL Muscle Tone Muscle Tone WNL Yes M6 PT-IP Treatment Start: 05/07/22 09:18 Freq: NEEDED Status: Active Protocol: Document 05/11/22 11:10 KS (Rec: 05/11/22 12:02 KS [id number]) Physical Therapy Treatment Education Education Provided Safety M7 PT-IP Assessment and Plan Start: 05/07/22 09:18 Freq: NEEDED Status: Active Protocol: Document 05/11/22 11:10 KS (Rec: 05/11/22 12:02 KS [id number]) PT Summary Assessment and Plan Potential Rehabilitation Potential Fair Status of Condition at Evaluation Evolving Summary Impairments Strength,Balance,Coordination, Cognition,Bed Mobility, Transfers,Gait Assessment Summary Pt unfortunately required increased assist today and was unable to progress ambulation . Mod A for sup<>sit, Max A x2 and two attempts for sit<> Stand and unable to maintain balance d/t increased tone and weakness, and Max A for sit<> sup and repositioning in bed. Pt will require SNF to improve strength and functional mobility independence. Goals Bed Mobility Goal Contact Guard Assistance Transfer Goal Standby Assistance,Front Wheeled Walker Gait Goal Standby Assistance,Front Wheel Walker Gait Distance 150 Other Goals up/down 4 steps with rails SBA - improve transfers and gait to SBA with 4WW Days to Meet Goals 10 Frequency of Treatment Frequency Of Treatment Once a Day Treatment Plan Physical Therapy Treatment Plan Bed Mobility Training,Transfer Training,Gait Training, Therapeutic Exercise,Balance Retraining,Discharge Planning, Hot or Cold Pack,Neuromuscular Re-ed,Coordination Retraining Precautions Other Precautions seizure precautions; falls risk Recommendations To Nursing Amount of Assist Needed 2 Person Assist Discharge Recommendations PT Discharge Recommendations Home with 17/06 Assist Available,Home Health,SNF Rehab,Home vs SNF Equipment Needed for Home Before FWW if unsafe with 4WW Discharge Transportation Needs at Discharge Private Vehicle,Wheelchair/ Cabulance
--- NOTE | 2022-05-11 11:25 | OT.IP.TRT ---
Current Diagnoses Cerebral infarction, unspecified (05/01/22) Occupational Therapy Treatment Note M2 OT-IP Current Condition Start: 05/07/22 12:13 Freq: Status: Active Protocol: Document 05/07/22 12:13 CGR (Rec: 05/07/22 12:37 CGR [id number]) Occupational Therapy Current Condition Current Condition Evaluation Date 05/07/22 Treatment Diagnosis generalized weakness, hx IV drug use, R CVA 2015 Diagnosis Onset Date 05/01/22 M3 OT- IP Subjective and Pain Start: 05/07/22 12:13 Freq: Status: Active Protocol: Document 05/11/22 11:10 [facility] (Rec: 05/11/22 11:36 [facility] [id number]) OT- Subjective Occupational Therapy Visit Type Type Treatment Note Visit Start Time 11:10 Visit Stop Time 11:25 Total Visit Minutes 15 Occupational Therapy Visit Comments Patient Comments Pt agreed to try to get up and shower. OT Pain Assessment Pain When Pain Assessed At Rest Pain Present Pain Present Denied Pain M6 OT- IP Functional Cognition Start: 05/07/22 12:13 Freq: Status: Active Protocol: Document 05/11/22 11:10 [facility] (Rec: 05/11/22 11:36 [facility] [id number]) Cognitive Factors Limiting Selfcare Function Cognitive Ability Level of Alertness Drowsy Attention Span Ability Capable of Focused Attention, Capable of Sustained Attention Ability to Follow Commands Able to Follow One Step Commands with Increased Time, Able to Follow One Step Commands with Repetition Cognitive Comments Cognitive Assessment Comments Pt a bit drowsy but able to follow commands. M7 OT- IP Mobility and Balance Start: 05/07/22 12:13 Freq: Status: Active Protocol: Document 05/11/22 11:10 [facility] (Rec: 05/11/22 11:36 [facility] [id number]) OT- Bed Mobility Assessment Supine to Sit Supine to Sit Assist Moderate Assistance,1 Person Assistance OT-Transfer Assessment Sit to and From Stand Sit to and from Stand Maximum Assistance,2 Person Assistance Comments Mobility Comments Pt needing MAXA x2 to stand to FWW and unable to stand and noted increased tone right side and not able to stand. Assist pt back to supine. OT- Balance Assessment Sitting Balance and Reactions Static Sitting Balance Ability Poor Dynamic Sitting Balance Ability Poor Standing Balance and Reactions Static Standing Balance Ability Poor M8 OT- IP Objective Assessments Start: 05/07/22 12:13 Freq: Status: Active Protocol: Document 05/07/22 12:13 CGR (Rec: 05/07/22 12:37 CGR [id number]) OT Gross Range of Motion Upper Extremity Range of Motion ROM Impairments AAROM WFL OT Strength Upper Extremity Strength Assessment Bilaterally Impaired Comments Strength Comments R weaker than L R grossly 2/5 L grossly 2+ to 3-/5 OT- Coordination Assessment Upper Extremity Finger to Nose Test Bilateral UE Impaired Finger Tapping Test Bilateral UE Impaired OT-Muscle Tone Assessment Muscle Tone WNL Yes OT Sensation Assessment Edema Edema Absent M9 OT- IP Assessment and Plan Start: 05/07/22 12:13 Freq: Status: Active Protocol: Document 05/11/22 11:10 [facility] (Rec: 05/11/22 11:36 [facility] [id number]) OT Summary Assessment and Plan Potential Rehabilitation Potential Good Analytic Complexity at Evaluation High Summary OT Impairments Pain,Strength,Balance, Coordination,Functional Cognition,Functional Mobility, Self-Feeding,Grooming,Dressing ,Toileting,Bathing,Toilet Transfers,Shower Transfers, Activity Tolerance Progress Towards Goals Slow Progress due to Medical Issues Assessment Summary Pt having low potassium and not able to tolerate much therapy and now suggesting best to use a oswaldo lift for pt at this time. per nursing pt having low potassium today. Goals Self-Feeding Goal Independent Grooming Goal Independent Dressing Goal Independent Toileting Goal Independent Bathing Goal Independent Toilet Transfer Goal Independent Shower Transfer Goal Independent Days to Meet Goals 30 Frequency of Treatment Frequency Of Treatment Once a Day Treatment Plan OT Treatment Plan ADL Training,Functional Cognition Training,Functional Mobility,Neuromuscular Re- education,Therapeutic Exercises,Patient/Family Education,Discharge Planning Other Treatment Recommendations and Next sitting balance with ADLs Treatment Focus Discharge Recommendations OT Discharge Recommendations SNF Rehab Transportation Needs at Discharge Wheelchair/Cabulance,Stretcher /Ambulance
[2022-05-11] MEDS: POTASSIUM PHOSPHATE 15 MMOL in SODIUM CHLORIDE 0.9% 250 ML 63.75 MMOL IV (11:27)
--- NOTE | 2022-05-11 12:28 | P.PN_ITS ---
Subjective Subjective Interval history: weakness, per RN - low potassium and pt is more sleepy Exam Vital Signs (past 8 hours): - 05/11/22 06:00 05/11/22 09:20 05/11/22 10:11 Temperature 99.2 F 98.2 F Pulse Rate 84 84 66 Respiratory Rate 16 16 16 Blood Pressure 152/82 H 147/81 H Pulse Oximetry 96 94 94 Oxygen Delivery Method Room Air Oxygen Flow Rate 0 0 Oxygen Delivery Method Room Air Oxygen Flow Rate 0 Const General: cooperative and frail appearing Orientation: alert, awake and oriented x3 HENMT Head: normal to inspection Ears: external ears normal Mouth: oral mucosae normal Eyes Pupils: PERRL EOM: EOM intact bilaterally Neck Neck: normal visual inspection and full ROM Resp Effort & Inspection: normal respiratory effort Auscultation: clear to auscultation bilaterally Cardio Rate: regular rate Rhythm: regular rhythm GI Palpation: soft and no hepatosplenomegaly Auscultation: normal bowel sounds Skin General: no rashes or lesions noted Neuro General: patient alert, patient awake, patient oriented x3, moves all extremities and no focal motor deficits Speech: speech normal Extrem General: normal to inspection (multiple crusted lesions in both legs), full ROM and no pedal edema Psych Appearance: grossly normal Objective Labs Result Diagrams: 05/11/22 04:25 05/11/22 04:25 Labs: Laboratory Results - last 24 hr 05/09/22 05/11/22 05/11/22 05:39 04:25 04:25 WBC 6.6 RBC 4.68 Hgb 10.3 L Hct 31.8 L MCV 68.0 L MCH 21.9 L MCHC 32.2 RDW 20.7 H Plt Count 246 Neut % (Auto) 62.5 Lymph % (Auto) 24.7 L [place] % (Auto) 8.7 Eos % (Auto) 3.9 Baso % (Auto) 0.2 Neut # (Auto) 4100 Lymph # (Auto) 1600 [place] # (Auto) 600 Eos # (Auto) 300 Baso # (Auto) 0 RBC Morphology See below Hypochromasia 1+ H Anisocytosis 2+ H Microcytosis 2+ H Sodium 137 Potassium 2.9 L Chloride 107 Carbon Dioxide 26 BUN 5 L Creatinine 0.28 L Estimated GFR > 60 BUN/Creatinine Ratio 17.9 Glucose 76 L Calcium 6.8 L HIV 1&2 Ab/P24 Ag 4thGn Negative PFSH Medical History (Updated 05/02/22 @ 00:00 by ) Asthma Chronic back pain greater than 3 months duration Closed intertrochanteric fracture of left femur Depression Drug abuse, IV History of CVA (cerebrovascular accident) Surgical History History of hernia repair Family History Father Unknown family medical history Mother No problems noted. Grandmother Myocardial infarction Grandfather No problems noted. Social History household members: friend(s) Smoking Status: Current some day smoker alcohol intake: current Assessment & Plan Assessment & Plan narrative: Assesment/Plan: Altered mental status/metabolic encephalopathy likely multifactorial and mainly related to halfway IVDA , polysubstance abuse etc -continue CIWA -continue close monitoring -continue PT/OT Acute respiratory failure resolved secondary to pneumonia ( group A strep) - treated with IV ceftriaxone and azithromycin clinically stable on RA with good sats ? Hypertension -continue prn meds for high blood pressure > 160 -close monitoring vitals Hyperlipidemia ?- continue atorvastatin H/O Polysubstance abuse/IVDA ?- counseled ? -HIV is pending Oral thrush ?- continue fluconazole ? DVT prophylaxis: lovenox Code status: full Disposition: difficult to find rehab for him due to above Discussed on meeting Time Spent With Patient Critical Care time: I spent a total of [] minutes of critical care time on this patient's care today; this time is exclusive of procedural time. Quality VTE Deep Vein Thrombosis/Pulmonary Embolism Present on Admission: No
[2022-05-11] MEDS: ACETAMINOPHEN 325 MG TABLET PO (13:10)
--- NOTE | 2022-05-11 16:02 | CM.DPC ---
DCP Cont: Spoke to Maria Fernanda, patient's [facility] FULL TIME STAFF INTERPRETER. She can do assessment on May 29, at 0900, for daily rate and placement, if patient is still here. She will send an email to confirm. P: DCP to continue to follow. Have set up with Maria Fernanda on May 29. Claudia Segal RN/Manager Transfusion
[2022-05-11] MEDS: ATORVASTATIN 20 MG TABLET 40 MG PO (20:50)
[2022-05-11] MEDS: LORazepam 1 MG TABLET PO (20:55)
[2022-05-12] VITALS (10 sets, daily range): BP systolic 157–169; BP diastolic 88–97; PULSE 68–76; RESP 16–20; TEMP 36.1–36.9; O2SAT 92–96
[2022-05-12] MEDS: SODIUM CHLORIDE 0.9% 1,000 ML 100 ML IV ×3 (01:31→21:12)
[2022-05-12] MEDS: ACETAMINOPHEN 325 MG TABLET PO ×3 (04:33→13:08)
[2022-05-12] MEDS: SODIUM CHLORIDE 0.9% FLUSH 10 ML IV (05:25)
[2022-05-12 06:01] LABS: Basophils Absolute Auto 0 /uL (0-100); Basophils Percent Auto 0.1 % (0-2); Eosinophils Absolute Auto 300 /uL (0-450); Eosinophils Percent Auto 3.9 % (2-4); Hematocrit 35.6 % (41-53); Hemoglobin 11.5 g/dL (13.5-17.5); Lymphocytes Absolute Auto 1700 /uL (1100-4500); Lymphocytes Percent Auto 23.3 % (25-40); Mean Corpuscular HGB Conc 32.4 % (30-36); Mean Corpuscular Hemoglobin 22.2 PG (26-34); Mean Corpuscular Volume 68.5 fL (80-100); Monocytes Absolute Auto 600 /uL (0-900); Monocytes Percent Auto 8.6 % (3-14); Neutrophils Absolute Auto 4500 /uL (1500-7000); Neutrophils Percent Auto 64.1 % (50-75); Platelet Count 294 X10^3/uL (150-400); Red Cell Distribution Width 21.3 % (11.6-14.8); White Blood Cell Count 7.1 X10^3/uL (4.5-11.0)
[2022-05-12 06:02] LABS: Add Manual Diff / Slide Review SLIDE REVIEW
[2022-05-12 06:04] LABS: Alanine Aminotransferase 121 IU/L (<50); Albumin 3.4 g/dL (3.5-5.0); Albumin Globulin Ratio 0.9 (1.0-2.8); Alkaline Phosphatase 80 U/L (38-126); Aspartate Aminotransferase 113 IU/L (17-59); BUN Creatinine Ratio 22.2 (6-22); Bilirubin Total 0.6 mg/dL (0.2-1.3); Blood Urea Nitrogen 8 mg/dL (9-20); Calcium 8.3 mg/dL (8.4-10.2); Carbon Dioxide 34 mmol/L (22-32); Chloride 100 mmol/L (98-107); Estimated Glomerular Filt Rate > 60 mL/min (>60); Globulin 3.7 g/dL (1.7-4.1); Glucose 89 mg/dL (80-110); HEMOLYSIS 22 (0-50); Potassium 3.8 mmol/L (3.4-5.1); Sodium 138 mmol/L (137-145); Total Protein 7.1 g/dL (6.3-8.2)
[2022-05-12 07:34] LABS: Anisocytosis 2+; Microcytosis 2+
[2022-05-12] MEDS: NICOTINE 7 MG PATCH TOP (08:57)
[2022-05-12] MEDS: ENOXAPARIN 40 MG/0.4 ML SYRINGE SUBCUT (08:57)
[2022-05-12] MEDS: FOLIC ACID 1 MG TABLET PO (08:58)
[2022-05-12] MEDS: ASPIRIN EC 81 MG TABLET PO (08:58)
[2022-05-12] MEDS: SERTRALINE 50 MG TABLET 100 MG PO (08:58)
[2022-05-12] MEDS: MULTIVITAMIN 1 TABLET 1 TAB PO (08:58)
[2022-05-12] MEDS: FLUCONAZOLE 100 MG TABLET 200 MG PO (09:11)
--- NOTE | 2022-05-12 09:26 | P.PN_ITS ---
Subjective Subjective Interval history: pt is weaker today, was able to say his name with soft voice, no overnight issues, no new complaints Exam Vital Signs (past 8 hours): - 05/12/22 04:32 Temperature 97.9 F Pulse Rate 75 Respiratory Rate 16 Blood Pressure 169/97 H Pulse Oximetry 92 Oxygen Flow Rate 0 Oxygen Delivery Method Room Air Oxygen Flow Rate 0 Const General: cooperative and frail appearing Orientation: alert, awake and oriented x3 HENMT Head: normal to inspection Ears: external ears normal Mouth: oral mucosae normal Eyes Pupils: PERRL EOM: EOM intact bilaterally Neck Neck: normal visual inspection and full ROM Resp Effort & Inspection: normal respiratory effort Auscultation: clear to auscultation bilaterally Cardio Rate: regular rate Rhythm: regular rhythm GI Palpation: soft and no hepatosplenomegaly Auscultation: normal bowel sounds Skin General: no rashes or lesions noted Neuro General: patient alert, patient awake, patient oriented x3, moves all extrem ities and no focal motor deficits Speech: speech normal Extrem General: normal to inspection (multiple crusted lesions in both legs), full ROM and no pedal edema Psych Appearance: grossly normal Objective Labs Result Diagrams: 05/12/22 05:15 05/12/22 05:15 Labs: Laboratory Results - last 24 hr 05/11/22 05/12/22 05/12/22 16:04 05:15 05:15 WBC 7.1 RBC 5.20 Hgb 11.5 L Hct 35.6 L MCV 68.5 L MCH 22.2 L MCHC 32.4 RDW 21.3 H Plt Count 294 Neut % (Auto) 64.1 Lymph % (Auto) 23.3 L [place] % (Auto) 8.6 Eos % (Auto) 3.9 Baso % (Auto) 0.1 Neut # (Auto) 4500 Lymph # (Auto) 1700 [place] # (Auto) 600 Eos # (Auto) 300 Baso # (Auto) 0 RBC Morphology Not Reportable Anisocytosis 2+ H Microcytosis 2+ H Sodium Cancelled 138 Potassium Cancelled 3.8 Chloride Cancelled 100 Carbon Dioxide Cancelled 34 H BUN Cancelled 8 L Creatinine Cancelled 0.36 L Estimated GFR Cancelled > 60 BUN/Creatinine Ratio Cancelled 22.2 H Glucose Cancelled 89 Calcium Cancelled 8.3 L Total Bilirubin Cancelled 0.6 AST Cancelled 113 H ALT Cancelled 121 H Alkaline Phosphatase Cancelled 80 Total Protein Cancelled 7.1 Albumin Cancelled 3.4 L Globulin Cancelled 3.7 Albumin/Globulin Ratio Cancelled 0.9 L PFSH Medical History (Updated 05/02/22 @ 00:00 by ) Asthma Chronic back pain greater than 3 months duration Closed intertrochanteric fracture of left femur Depression Drug abuse, IV History of CVA (cerebrovascular accident) Surgical History History of hernia repair Family History Father Unknown family medical history Mother No problems noted. Grandmother Myocardial infarction Grandfather No problems noted. Social History household members: friend(s) Smoking Status: Current some day smoker alcohol intake: current Assessment & Plan Assessment & Plan narrative: Assesment/Plan: Altered mental status/metabolic encephalopathy likely multifactorial and mainly related to watermaster IVDA , polysubstance abuse etc today is less interactive, but arousable -continue CIWA -continue close monitoring -continue PT/OT Acute respiratory failure resolved secondary to pneumonia ( group A strep) - treated with IV ceftriaxone and azithromycin clinically stable on RA with good sats ? Hypertension -continue prn meds systolic > 160 -close monitoring vitals Hyperlipidemia ?- continue atorvastatin H/O Polysubstance abuse/IVDA ?- counseled ? -HIV is pending Oral thrush ?- continue fluconazole -close monitoring LFTs ? DVT prophylaxis: lovenox Code status: full Disposition: difficult to find rehab for him due to above pending for placement Discussed on meeting Time Spent With Patient Critical Care time: I spent a total of [] minutes of critical care time on this patient's care today; this time is exclusive of procedural time. Quality VTE Deep Vein Thrombosis/Pulmonary Embolism Present on Admission: No
--- NOTE | 2022-05-12 11:56 | PT-IP ANOTE ---
Attempted to see pt at 11:53, pt refused due to fatigue. RN and TEAM DRIVER confirm pt has been very lethargic today.
--- NOTE | 2022-05-12 11:58 | OT.IPNOTE ---
Attempted to see pt with P.T. services. Pt is lethargic and per nursing did not sleep over night. Will hold and continue to follow.
--- NOTE | 2022-05-12 12:12 | SLP.IPNOTE ---
ADMINISTRATIVE MEDICAL DIRECTOR attempted to see pt but he was asleep and unable to participate safely in therapy. Per nurse, the pt did not eat much breakfast. The pt had a rough night and did not sleep much. Pt is tolerating taking medication and his current diet orders. This ADMINISTRATIVE MEDICAL DIRECTOR recommends continuing diet and safe swallowing protocols at this time.
[2022-05-12] MEDS: LORazepam 2 MG/ML INJ IV ×3 (15:55→20:55)
[2022-05-12] MEDS: ATORVASTATIN 20 MG TABLET 40 MG PO (20:56)
[2022-05-12] MEDS: ONDANSETRON 4 MG/2 ML INJ IV (21:05)
[2022-05-13] VITALS (10 sets, daily range): BP systolic 140–169; BP diastolic 79–89; PULSE 67–80; RESP 12–18; TEMP 36.3–36.6; O2SAT 91–95
[2022-05-13] MEDS: LORazepam 2 MG/ML INJ IV ×5 (01:49→20:47)
--- NOTE | 2022-05-13 05:19 | PC.NURSE ---
Pt has been c/o back pain tonight. He also statesdd I feel like I am having DT's. C/o headache, nausea, mild anxiety. CIWA up to 11-12 at times, pt able to rest for 2 hours after 2 mg of Ativan given. Seizure precautions maintained.
[2022-05-13] MEDS: SODIUM CHLORIDE 0.9% 1,000 ML 100 ML IV (06:36)
[2022-05-13] MEDS: NICOTINE 7 MG PATCH TOP (09:27)
[2022-05-13] MEDS: ENOXAPARIN 40 MG/0.4 ML SYRINGE SUBCUT (09:27)
[2022-05-13] MEDS: ASPIRIN EC 81 MG TABLET PO (09:28)
[2022-05-13] MEDS: FOLIC ACID 1 MG TABLET PO (09:28)
[2022-05-13] MEDS: SERTRALINE 50 MG TABLET 100 MG PO (09:28)
[2022-05-13] MEDS: MULTIVITAMIN 1 TABLET 1 TAB PO (09:28)
[2022-05-13] MEDS: FLUCONAZOLE 100 MG TABLET 200 MG PO (09:28)
--- NOTE | 2022-05-13 11:56 | P.PN_ITS ---
Subjective Subjective Interval history: pt is more interacive and awake today he stated that his appetite is improving, denies any new complaints, slept well Exam Vital Signs (past 8 hours): - 05/13/22 09:01 05/13/22 10:00 05/13/22 07:00 Temperature Pulse Rate 73 Respiratory Rate 13 Blood Pressure 147/86 H Pulse Oximetry 94 Oxygen Delivery Method Room Air Room Air Oxygen Flow Rate 05/13/22 11:30 05/13/22 11:48 Temperature 97.3 F L Pulse Rate 69 67 Respiratory Rate 12 17 Blood Pressure 169/88 H 161/86 H Pulse Oximetry 95 Oxygen Delivery Method Oxygen Flow Rate 0 Oxygen Delivery Method Room Air Oxygen Flow Rate 0 Const General: cooperative and frail appearing Orientation: alert, awake and oriented x3 HENMT Head: normal to inspection Ears: external ears normal Mouth: oral mucosae normal Eyes Pupils: PERRL EOM: EOM intact bilaterally Neck Neck: normal visual inspection and full ROM Resp Effort & Inspection: normal respiratory effort Auscultation: clear to auscultation bilaterally Cardio Rate: regular rate Rhythm: regular rhythm GI Palpation: soft and no hepatosplenomegaly Auscultation: normal bowel sounds Skin General: no rashes or lesions noted Neuro General: patient alert, patient awake, patient oriented x3, moves all extremities and no focal motor deficits Speech: speech normal Extrem General: normal to inspection (multiple crusted lesions in both legs), full ROM and no pedal edema Psych Appearance: grossly normal Objective Labs Result Diagrams: 05/12/22 05:15 05/12/22 05:15 [facility] Medical History (Updated 05/02/22 @ 00:00 by ) Asthma Chronic back pain greater than 3 months duration Closed intertrochanteric fracture of left femur Depression Drug abuse, IV History of CVA (cerebrovascular accident) Surgical History History of hernia repair Family History Father Unknown family medical history Mother No problems noted. Grandmother Myocardial infarction Grandfather No problems noted. Social History household members: friend(s) Smoking Status: Current some day smoker alcohol intake: current Assessment & Plan Assessment & Plan narrative: Assesment/Plan: Altered mental status/metabolic encephalopathy likely multifactorial , imorving -continue CIWA -continue close monitoring -continue PT/OT Hypokalemia -replaced Acute respiratory failure resolved secondary to pneumonia ( group A strep) - treated with IV ceftriaxone and azithromycin clinically stable on RA with good sats ? Hypertension -continue prn meds systolic > 160 -close monitoring vitals Hyperlipidemia ?- continue atorvastatin H/O Polysubstance abuse/IVDA ?- counseled ? -HIV is pending Oral thrush ?- continue fluconazole -close monitoring LFTs ? DVT prophylaxis: lovenox Code status: full Disposition: difficult to find rehab for him due to above pending for placement Time Spent With Patient Critical Care time: I spent a total of [] minutes of critical care time on this patient's care today; this time is exclusive of procedural time. Quality VTE Deep Vein Thrombosis/Pulmonary Embolism Present on Admission: No
--- NOTE | 2022-05-13 14:01 | PT.IPTN ---
Current Diagnoses Cerebral infarction, unspecified (05/01/22) Physical Therapy Treatment Note M2 PT-IP Current Condition Start: 05/07/22 09:18 Freq: NEEDED Status: Active Protocol: Document 05/07/22 11:05 AW (Rec: 05/07/22 12:44 AW [id number]) Physical Therapy Current Condition Current Condition Evaluation Date 05/07/22 Treatment Diagnosis metabolic encephalopathy; polysubstance withdrawal; impaired mobility Onset Date 04/30/22 M3 PT-IP Subjective Start: 05/07/22 09:18 Freq: NEEDED Status: Active Protocol: Document 05/13/22 14:01 AW (Rec: 05/13/22 16:22 AW [id number]) Subjective Physical Therapy Visit Type Type Treatment Note Visit Start Time 13:44 Visit Stop Time 14:01 Total Visit Minutes 15 Notes ASSISTANT ATHLETIC TRAINER provided 2nd person assist for transfer Physical Therapy Visit Comments Patient Comments Pt is somewhat difficult to rouse. Alertness increases with mobility but pt quickly falls back to sleep once positioned. M4 PT-IP Mobility and Gait Start: 05/07/22 09:18 Freq: NEEDED Status: Active Protocol: Document 05/13/22 14:01 AW (Rec: 05/13/22 16:22 AW [id number]) PT-Bed Mobility Assessment Supine to Sit Supine to Sit Maximum Assistance,1 Person Assistance,Head of Bed Elevated Scooting Scooting to Edge of Bed Moderate Assistance PT-Transfer Assessment Sit to and From Stand Sit to and from Stand Maximum Assistance,2 Person Assistance,Use of Upper Extremities Equipment Transfer Assistive Device Gait Belt,Front Wheeled Walker Orthotic/Prosthetic Devices or Brace: No Transfers Transfer Destination Chair Transfer Technique Stand Step Pivot Transfer Ability Level of Assist Maximum Assistance,2 Person Assistance,Use of Upper Extremities Comments Mobility Comments Pt was in bed as PT arrived. Alertness increased as PT provided max assist to sitting EOB. Trunk control was poor initially. PT provided assist to EOB for feet flat on floor, positioned R hand on the bed and provided approximation proximally and distally for awareness of feet on floor and hands on mattress. Provided bed cane for pt to reach with left hand but pt required GRAYLING assist to use. Worked on seated balance with PT giving light perturbations in all directions to encourage midline awareness and improved trunk control. Manual facilitation to trunk extensors for improved seated posture. ASSISTANT ATHLETIC TRAINER arrived and provided 2nd person assist for sit to stand. Pt's knees tended to buckle and needed manual facilitation for knee extension in stance and during transfer to the chair. Pt was positioned on the chair with call light in reach. Pt was left with ASSISTANT ATHLETIC TRAINER attending. PT recommended oswaldo transfer back to bed when pt ready. Gait Assessment Gait Gait Assistance Required: Maximum Assistance,2 Person Assist Assistive Devices Assistive Device Gait Belt,Front Wheeled Walker Comments Gait Comments Transfer only. See mobility comments for details. PT-Balance Assessment Sitting Balance and Reactions Static Sitting Balance Ability Poor Dynamic Sitting Balance Ability Poor Standing Balance and Reactions Static Standing Balance Ability Poor Dynamic Standing Balance Ability Poor Device Used FWW M5 PT-IP Objective Assessments Start: 05/07/22 09:18 Freq: NEEDED Status: Active Protocol: Document 05/07/22 11:05 AW (Rec: 05/07/22 13:30 AW [id number]) Orientation Orientation/Cognition Level of Alertness Lethargic Orientation Name,Month,Place Safety Awareness Decreased Safety Awareness Gross Range of Motion Lower Extremity ROM Assessment Within Functional Limits Strength Lower Extremity Strength Assessment Bilaterally Impaired Comments Strength Comments R grossly 3-/5. L grossly 3+/5 Coordination Assessment Gross Coordination Gross Coordination Impaired Assessment Finger to Nose Test Activity Impossible Foot Tapping Test Minimal Impairment Coordination Comments Pt limited by BUE weakness with UE coordination testing. Sensation Assessment Sensation Gross Sensation WNL Muscle Tone Muscle Tone WNL Yes M6 PT-IP Treatment Start: 05/07/22 09:18 Freq: NEEDED Status: Active Protocol: Document 05/13/22 14:01 AW (Rec: 05/13/22 16:22 AW [id number]) Physical Therapy Treatment Education Education Provided Safety Other Treatments Other Treatment Performed Seated balance work as detailed in mobility comments. M7 PT-IP Assessment and Plan Start: 05/07/22 09:18 Freq: NEEDED Status: Active Protocol: Document 05/13/22 14:01 AW (Rec: 05/13/22 16:22 AW [id number]) PT Summary Assessment and Plan Potential Rehabilitation Potential Fair Status of Condition at Evaluation Evolving Summary Impairments Strength,Balance,Coordination, Cognition,Bed Mobility, Transfers,Gait Progress Towards Goals Slow Progress due to Medical Issues,Slow Progress due to Activity Tolerance,Slow Progress - Other Assessment Summary Pt required max A for bed mobility and max A x 2 for sit to stand and transfer with FWW. Spent extra time focusing on seated balance today. Pt would benefit from SNF rehab to improve strength and mobility independence. Goals Bed Mobility Goal Contact Guard Assistance Transfer Goal Standby Assistance,Front Wheeled Walker Gait Goal Standby Assistance,Front Wheel Walker Gait Distance 150 Other Goals up/down 4 steps with rails SBA - improve transfers and gait to SBA with 4WW Days to Meet Goals 10 Frequency of Treatment Frequency Of Treatment Once a Day Treatment Plan Physical Therapy Treatment Plan Bed Mobility Training,Transfer Training,Gait Training, Therapeutic Exercise,Balance Retraining,Discharge Planning, Hot or Cold Pack,Neuromuscular Re-ed,Coordination Retraining Precautions Other Precautions seizure precautions; falls risk Recommendations To Nursing Amount of Assist Needed 2 Person Assist Discharge Recommendations PT Discharge Recommendations Home with 17/06 Assist Available,Home Health,SNF Rehab,Home vs SNF Equipment Needed for Home Before FWW if unsafe with 4WW Discharge Transportation Needs at Discharge Private Vehicle,Wheelchair/ Cabulance
--- NOTE | 2022-05-13 18:22 | PC.NURSE ---
Pt is AxOx3, very sleepy most of the day. VSS, pt c/o headache, anxiety and CIWA-11-12 today and IV Ativan 2mg given x3 with good effect. Pt's appetite is much better than yesterday. Otherwise, no change. Continue monitor.
[2022-05-13] MEDS: ATORVASTATIN 20 MG TABLET 40 MG PO (20:47)
[2022-05-14] VITALS (8 sets, daily range): BP systolic 132–151; BP diastolic 78–91; PULSE 71–83; RESP 14–16; TEMP 36.2–37.1; O2SAT 93–97
--- NOTE | 2022-05-14 09:19 | CM.DPNOTE ---
Faxed referral to [facility] and [place] in rehab per Kacie. Received conf. Kristin Schwarz CM Assist.
[2022-05-14] MEDS: ASPIRIN EC 81 MG TABLET PO (09:40)
[2022-05-14] MEDS: SERTRALINE 50 MG TABLET 100 MG PO (09:40)
[2022-05-14] MEDS: ACETAMINOPHEN 325 MG TABLET PO ×2 (09:40→21:57)
[2022-05-14] MEDS: ENOXAPARIN 40 MG/0.4 ML SYRINGE SUBCUT (09:40)
[2022-05-14] MEDS: FOLIC ACID 1 MG TABLET PO (09:40)
[2022-05-14] MEDS: MULTIVITAMIN 1 TABLET 1 TAB PO (09:40)
[2022-05-14] MEDS: NICOTINE 7 MG PATCH TOP (10:05)
[2022-05-14] MEDS: LORazepam 2 MG/ML INJ IV (10:06)
[2022-05-14] MEDS: FLUCONAZOLE 100 MG TABLET 200 MG PO (10:06)
--- NOTE | 2022-05-14 11:53 | PC.NURSE ---
Addendum entered by Patricia Jo R.N. 05/14/22 17:55: 1755 pt resting with eyes closed, respirations equal and unlabored upon reassess from ativan administration. Original Note: 1130 assumed care of pt. pt noted to roll over independent in bed. resting with no signs/symptoms of distress. call light in reach, bed alarm, seizure pads on.
--- NOTE | 2022-05-14 12:18 | CM.DPC ---
Addendum entered by Claudia Segal R.N. 05/14/22 15:11: Zeina at [facility] called and stated, she can't accept patient due to drug history. Original Note: DCP Cont: Asked Kristin to fax over referrals to [facility] in [place], and [facility] in [place]. Spoke to Nickolas at [facility], and let him know about the adjunct faculty for medical terminology assessment on 05/29. He indicated he can't take the patient until after the assessment is completed with daily rate, but that insurance would cover him due to therapy needs, for inpatient rehab. Mariana at [facility] stated that she did receive the referral, and is reviewing. Let her know about the adjunct faculty for medical terminology plan as well. P: DCP to continue to work on placement. Will see if [facility] may consider. Claudia Segal RN/Satish Artis
--- NOTE | 2022-05-14 13:19 | PM.PN.1 ---
Subjective Subjective Interval history: pt is wake, alert and oriented x3 today Exam Vital Signs (past 8 hours): - 05/14/22 08:33 05/14/22 10:53 05/14/22 12:39 Temperature 98.8 F 98.1 F Pulse Rate 74 74 71 Respiratory Rate 16 16 16 Blood Pressure 132/82 141/90 H Pulse Oximetry 93 97 Oxygen Delivery Method Room Air Oxygen Flow Rate 0 Const General: cooperative and frail appearing Orientation: alert, awake and oriented x3 HENMT Head: normal to inspection Ears: external ears normal Mouth: oral mucosae normal Eyes Pupils: PERRL EOM: EOM intact bilaterally Neck Neck: normal visual inspection and full ROM Resp Effort & Inspection: normal respiratory effort Auscultation: clear to auscultation bilaterally Cardio Rate: regular rate Rhythm: regular rhythm GI Palpation: soft and no hepatosplenomegaly Auscultation: normal bowel sounds Skin General: no rashes or lesions noted Neuro General: patient alert, patient awake, patient oriented x3, moves all extremities and no focal motor deficits Speech: speech normal Extrem General: normal to inspection (multiple crusted lesions in both legs), full ROM and no pedal edema Psych Appearance: grossly normal Objective Labs Result Diagrams: 05/12/22 05:15 05/12/22 05:15 [facility] Medical History (Updated 05/02/22 @ 00:00 by ) Asthma Chronic back pain greater than 3 months duration Closed intertrochanteric fracture of left femur Depression Drug abuse, IV History of CVA (cerebrovascular accident) Surgical History History of hernia repair Family History Father Unknown family medical history Mother No problems noted. Grandmother Myocardial infarction Grandfather No problems noted. Social History household members: friend(s) Smoking Status: Current some day smoker alcohol intake: current Assessment & Plan Assessment & Plan narrative: Assesment/Plan: Altered mental status/metabolic encephalopathy likely multifactorial ,mental status improved -continue CIWA -continue close monitoring -continue PT/OT Hypokalemia -replaced, resolved Acute respiratory failure resolved secondary to pneumonia ( group A strep) - treated with IV ceftriaxone and azithromycin clinically stable on RA with good sats ? Hypertension -continue prn meds systolic > 160 Hyperlipidemia ?- continue atorvastatin H/O Polysubstance abuse/IVDA ?- counseled ? Oral thrush ?- continue fluconazole - close monitoring LFTs ? DVT prophylaxis: lovenox Code status: full Disposition: pending for placement Time Spent With Patient Critical Care time: I spent a total of [] minutes of critical care time on this patient's care today; this time is exclusive of procedural time. Quality VTE Deep Vein Thrombosis/Pulmonary Embolism Present on Admission: No
--- NOTE | 2022-05-14 14:22 | OT.IP.TRT ---
Current Diagnoses Cerebral infarction, unspecified (05/01/22) Occupational Therapy Treatment Note M2 OT-IP Current Condition Start: 05/07/22 12:13 Freq: Status: Active Protocol: Document 05/07/22 12:13 CGR (Rec: 05/07/22 12:37 CGR [id number]) Occupational Therapy Current Condition Current Condition Evaluation Date 05/07/22 Treatment Diagnosis generalized weakness, hx IV drug use, R CVA 2016 Diagnosis Onset Date 05/01/22 M3 OT- IP Subjective and Pain Start: 05/07/22 12:13 Freq: Status: Active Protocol: Document 05/14/22 14:36 CGR (Rec: 05/14/22 14:42 CGR [id number]) OT- Subjective Occupational Therapy Visit Type Type Progress Note Visit Start Time 13:57 Visit Stop Time 14:22 Total Visit Minutes 25 Notes co-treat with P.T. OT Pain Assessment Pain When Pain Assessed At Rest Pain Present Pain Present Denied Pain M4 OT- IP ADL's Start: 05/07/22 12:13 Freq: Status: Active Protocol: Document 05/14/22 14:36 CGR (Rec: 05/14/22 14:42 CGR [id number]) OT [id number] General Evaluation Self-Feeding Ability Moderate Assistance Areas Needing Assistance Drinking From Cup/Glass Comments OT Self-Feeding Comments assist with holding smoothie OT ADL-Grooming General Evaluation Grooming Ability Total Assistance Areas Needing Assistance Combing/Brushing Hair Comments OT Grooming Comments seated in chair OT ADL-Oral Care Comments Oral Care Comments not performed OT ADL-Dressing General Eval Lower Body Dressing Ability Maximum Assistance,Total Assistance Areas Needing Assistance Underpants/Brief,Socks Comments OT Dressing Comments Assisted with donning socks, and donning brief seated EOB OT ADL-Toileting General Evaluation Toileting Ability Total Assistance Areas Needing Assistance Manage Clothing,Perform Perineal Hygiene Comments OT Toileting Comments Pt found soiled in bed when OT entered. Doffed soiled brief and donned clean brief upon standing. OT ADL-Bathing Comments OT Bathing Comments not performed M5 OT- IP IADL's Start: 05/07/22 12:13 Freq: Status: Active Protocol: Document 05/07/22 12:13 CGR (Rec: 05/07/22 12:37 CGR [id number]) OT-Instrumental Activities of Daily Living Deficits IADL Deficits Identified Deficits Home Safety Awareness Awareness of Need for Assistance at Home Decreased Awareness Ability to Problem Solve Emergency Unable to Problem Solve Situations Medication Management Medication Management Comments Concerns about pt's ability to perform consistently Money Management Money Management Comments Concerns about pt's ability to perform consistently Meal Preparation Meal Preparation Comments Concerns about pt's ability to perform consistently Power Plant Superintendent Power Plant Superintendent Comments Concerns about pt's ability to perform consistently M6 OT- IP Functional Cognition Start: 05/07/22 12:13 Freq: Status: Active Protocol: Document 05/11/22 11:10 [facility] (Rec: 05/11/22 11:36 [facility] [id number]) Cognitive Factors Limiting Selfcare Function Cognitive Ability Level of Alertness Drowsy Attention Span Ability Capable of Focused Attention, Capable of Sustained Attention Ability to Follow Commands Able to Follow One Step Commands with Increased Time, Able to Follow One Step Commands with Repetition Cognitive Comments Cognitive Assessment Comments Pt a bit drowsy but able to follow commands. M7 OT- IP Mobility and Balance Start: 05/07/22 12:13 Freq: Status: Active Protocol: Document 05/14/22 14:36 CGR (Rec: 05/14/22 14:42 CGR [id number]) OT- Bed Mobility Assessment Rolling Type of Rolling Roll to Right Level of Assistance Maximum Assistance Supine to Sit Supine to Sit Assist Maximum Assistance,1 Person Assistance Scooting Scooting to Edge of Bed Maximum Assistance,1 Person Assistance OT-Transfer Assessment Sit to and From Stand Sit to and from Stand Maximum Assistance,2 Person Assistance Transfers Transfer Ability Maximum Assistance,2 Person Assistance Technique Transfer Destination Bed,Chair Transfer Technique Stand Step Pivot Devices Transfer Assistive Devices Gait Belt,Front Wheeled Walker Comments Mobility Comments Pt was able to stand and transfer to chair with max x 2 then sit to stand x2 with poor endurance. OT- Balance Assessment Sitting Balance and Reactions Static Sitting Balance Ability Poor Dynamic Sitting Balance Ability Poor M8 OT- IP Objective Assessments Start: 05/07/22 12:13 Freq: Status: Active Protocol: Document 05/07/22 12:13 CGR (Rec: 05/07/22 12:37 CGR [id number]) OT Gross Range of Motion Upper Extremity Range of Motion ROM Impairments AAROM WFL OT Strength Upper Extremity Strength Assessment Bilaterally Impaired Comments Strength Comments R weaker than L R grossly 2/5 L grossly 2+ to 3-/5 OT- Coordination Assessment Upper Extremity Finger to Nose Test Bilateral UE Impaired Finger Tapping Test Bilateral UE Impaired OT-Muscle Tone Assessment Muscle Tone WNL Yes OT Sensation Assessment Edema Edema Absent M9 OT- IP Assessment and Plan Start: 05/07/22 12:13 Freq: Status: Active Protocol: Document 05/14/22 14:36 CGR (Rec: 05/14/22 14:42 CGR [id number]) OT Summary Assessment and Plan Potential Rehabilitation Potential Good Analytic Complexity at Evaluation High Summary OT Impairments Pain,Strength,Balance, Coordination,Functional Cognition,Functional Mobility, Self-Feeding,Grooming,Dressing ,Toileting,Bathing,Toilet Transfers,Shower Transfers, Activity Tolerance Progress Towards Goals Slow Progress due to Medical Issues Assessment Summary Pt was agreeable to therapy and performed sup to sit with max a and then transferred to chair. Pt needed max a for pericare and changing of brief . Pt agreeable to sit to stand x2 after transfer but displays poor endurance. Pt left sitting up in chair at end of session, call button within reach and chair fall alarm armed. Goals Self-Feeding Goal Independent Grooming Goal Independent Dressing Goal Independent Toileting Goal Independent Bathing Goal Independent Toilet Transfer Goal Independent Shower Transfer Goal Independent Days to Meet Goals 30 Frequency of Treatment Frequency Of Treatment Once a Day Treatment Plan OT Treatment Plan ADL Training,Functional Cognition Training,Functional Mobility,Neuromuscular Re- education,Therapeutic Exercises,Patient/Family Education,Discharge Planning Other Treatment Recommendations and Next sitting balance with ADLs Treatment Focus Discharge Recommendations OT Discharge Recommendations SNF Rehab Transportation Needs at Discharge Wheelchair/Cabulance,Stretcher /Ambulance
--- NOTE | 2022-05-14 14:23 | PT.IPTN ---
Current Diagnoses Cerebral infarction, unspecified (05/01/22) Physical Therapy Treatment Note M2 PT-IP Current Condition Start: 05/07/22 09:18 Freq: NEEDED Status: Active Protocol: Document 05/14/22 13:57 SP (Rec: 05/14/22 17:21 SP [id number]) Physical Therapy Current Condition Current Condition Evaluation Date 05/07/22 Treatment Diagnosis metabolic encephalopathy; polysubstance withdrawal; impaired mobility Onset Date 04/30/22 M3 PT-IP Subjective Start: 05/07/22 09:18 Freq: NEEDED Status: Active Protocol: Document 05/14/22 13:57 SP (Rec: 05/14/22 17:21 SP [id number]) Subjective Physical Therapy Visit Type Type Treatment Note Visit Start Time 13:57 Visit Stop Time 14:23 Total Visit Minutes 26 Notes Co tx with OT for heavy 2nd person assist required. Number of MANAGER RESOURCE Visits 1 Physical Therapy Visit Comments Patient Comments Pt alert and some what audible to understand responses this tx. M4 PT-IP Mobility and Gait Start: 05/07/22 09:18 Freq: NEEDED Status: Active Protocol: Document 05/14/22 13:57 SP (Rec: 05/14/22 17:21 SP [id number]) PT-Bed Mobility Assessment Rolling Type of Rolling Log Rolling,Roll to Right Level of Assist Contact Guard Assistance,1 Person Assistance Supine to Sit Supine to Sit Maximum Assistance,1 Person Assistance,Head of Bed Elevated Scooting Scooting to Edge of Bed Moderate Assistance,Maximum Assistance PT-Transfer Assessment Sit to and From Stand Sit to and from Stand Maximum Assistance,2 Person Assistance,Use of Upper Extremities Equipment Transfer Assistive Device Gait Belt,Front Wheeled Walker Orthotic/Prosthetic Devices or Brace: No Transfers Transfer Destination Chair Transfer Technique Stand Step Pivot Transfer Ability Level of Assist Maximum Assistance,2 Person Assistance,Use of Upper Extremities Comments Mobility Comments Pt completed LE exercises: AP, HS. Elevated supine>sit CGA LR L use of bed rail Max A x1 for trunk righting and scoot to EOB, assist RUE support at side for self WB through, at times needed responsitioning. Pt required Min support in sitting for trunk stability with BUE WB on bed. Sit>stand Max A x2, max verbal and min tactiles cues at low back for upright posture and pelvis tucked under him with quad fac and space between feet and foot clearance R>LLE, bed > chair SPT w/ FWW, support for trunk righting tends to flex and lean R>L and support LUE on and mobility of FWW. Pt stand >sit Max A x2 and assess forward gait 3 steps w/ FWW but unable to progress LE movement 3rd time due to decrease strength and activity tolerance. Pt's LE elevated and pillows laterally R>L trunk comfort. Pt had call light and chair alarm donned before left. Will continue to assess progress. MANAGER RESOURCE assisted pt in drinking his chocolate drink hand over hand with ELDAE , radhato demonstrated good suction to drink x2 during tx. Recommend nursing assist pt with fluids. Gait Assessment Gait Gait Assistance Required: Maximum Assistance,2 Person Assist Distance (Feet) 6 Able to Maintain Weight Bearing Status Yes During Gait Assistive Devices Assistive Device Gait Belt,Front Wheeled Walker Orthotic/Prosthetic Devices or Brace: No Gait Deviations General Gait Pattern Ataxic,Decreased Stride Length ,Decreased Feet Clearance, Flexed Trunk,Lateral Trunk Lean,Narrow Based Gait,Step-to Gait Factors Limiting Gait Function Factors Limiting Gait Function Decreased Activity Tolerance, Decreased Strength,Difficulty Following Directions, Incoordination,Pain,Poor Balance,Poor Safety Awareness Comments Gait Comments Transfer x1, forward gait x3 ft w/ FWW. See mobility comments for details. Stair Climbing Assessment Comments Stair Climbing Comments Not assessed. PT-Balance Assessment Sitting Balance and Reactions Static Sitting Balance Ability Poor Dynamic Sitting Balance Ability Poor Standing Balance and Reactions Static Standing Balance Ability Poor Dynamic Standing Balance Ability Poor Device Used FWW M5 PT-IP Objective Assessments Start: 05/07/22 09:18 Freq: NEEDED Status: Active Protocol: Document 05/07/22 11:05 AW (Rec: 05/07/22 13:30 AW [id number]) Orientation Orientation/Cognition Level of Alertness Lethargic Orientation Name,Month,Place Safety Awareness Decreased Safety Awareness Gross Range of Motion Lower Extremity ROM Assessment Within Functional Limits Strength Lower Extremity Strength Assessment Bilaterally Impaired Comments Strength Comments R grossly 3-/5. L grossly 3+/5 Coordination Assessment Gross Coordination Gross Coordination Impaired Assessment Finger to Nose Test Activity Impossible Foot Tapping Test Minimal Impairment Coordination Comments Pt limited by BUE weakness with UE coordination testing. Sensation Assessment Sensation Gross Sensation WNL Muscle Tone Muscle Tone WNL Yes M6 PT-IP Treatment Start: 05/07/22 09:18 Freq: NEEDED Status: Active Protocol: Document 05/14/22 13:57 SP (Rec: 05/14/22 17:21 SP [id number]) Physical Therapy Treatment Education Education Provided Safety M7 PT-IP Assessment and Plan Start: 05/07/22 09:18 Freq: NEEDED Status: Active Protocol: Document 05/14/22 13:57 SP (Rec: 05/14/22 17:21 SP [id number]) PT Summary Assessment and Plan Potential Rehabilitation Potential Fair Status of Condition at Evaluation Evolving Summary Impairments Strength,Balance,Coordination, Cognition,Bed Mobility, Transfers,Gait Progress Towards Goals Slow Progress due to Medical Issues,Slow Progress due to Activity Tolerance,Slow Progress - Other Assessment Summary Pt required Max A x1 elevated supine>sit and scoot to EOB. Sitting Min A at EOB, STS and transfer using FWW Max A x2. Pt would benefit from SNF rehab to improve strength and mobility independence. Goals Bed Mobility Goal Contact Guard Assistance Transfer Goal Standby Assistance,Front Wheeled Walker Gait Goal Standby Assistance,Front Wheel Walker Gait Distance 150 Other Goals up/down 4 steps with rails SBA - improve transfers and gait to SBA with 4WW Days to Meet Goals 10 Frequency of Treatment Frequency Of Treatment Once a Day Treatment Plan Physical Therapy Treatment Plan Bed Mobility Training,Transfer Training,Gait Training, Therapeutic Exercise,Balance Retraining,Discharge Planning, Hot or Cold Pack,Neuromuscular Re-ed,Coordination Retraining Other Recommendations and Next Treatment bed mob, sitting balance Focus activities, standing, transfers, gait using FWW if able. Precautions Other Precautions seizure precautions; falls risk Recommendations To Nursing Amount of Assist Needed 2 Person Assist Discharge Recommendations PT Discharge Recommendations SNF Rehab Equipment Needed for Home Before FWW Discharge Transportation Needs at Discharge Private Vehicle,Wheelchair/ Cabulance
--- NOTE | 2022-05-14 16:22 | DIET.CONS2 ---
Dietary Inpatient Consultation Note Admission Date: 05/01/2022 04:28 Pts POs have increased substantially over weekend from 5-10% up to 50-75%. Kitchen sending up high protein chocolate smoothies tid of which pt is reliant on 1:1 feed due to weakness and reduced dexterity of hands. WHITE SOURER upgraded diet from puree to dysphagia mech soft, both of us carefully watching POs to assess if less altered texture is more appealing to pt. Diet: 05/14/22 Dinner Dysphagia Diet Diet Modifications: protein smoothie tid, 1/2 portions Liquid consistency: Normal/Thin Food texture: Dysphagia Mechanical Soft Nutrition Percent Meal Consumed 50% 05/14/22 12:32 Percent Meal Consumed 50% 05/14/22 08:33 Percent Meal Consumed 75% 05/13/22 17:30 Percent Meal Consumed 75% 05/13/22 12:50 Percent Meal Consumed 75% 05/13/22 08:13 Percent Meal Consumed 40% 05/12/22 17:26 Nutrition Diagnosis: Moderate chronic malnutrition r/t social and psychological reasons aeb BMI 20.2 (low for age), pt active IVDU in withdrawal, pt food and housing insecure, currently 2p assist c need for 1:1 feeding on puree diet c POs 5 to 25%. Evaluation/Monitoring: POs, favorite foods to spur increased intake Electronically Signed by: Michaela Alicea 05/14/22 16:22 Clinical Dietitian [address] [address]
[2022-05-14] MEDS: LORazepam 1 MG TABLET PO ×2 (16:55→22:01)
--- NOTE | 2022-05-14 16:57 | ST.IPDYTX ---
Visit Care Team Role Provider Type Kenney Joshi MD Family Provider Non-Staff Primary Care Provider Specialty: Family Practice Address: [address] , [address], [place], [address] Email: Richard Hannon DO Emergency Provider Physician Referring Provider Specialty: Emergency Medicine Address: [address] [place] [address], [id number] Email: [email or web address] JONATHAN Sampson Admit Provider Physician Attending Provider Specialty: Internal Medicine Address: [address] [place] [address], [address] Email: [email or web address] HOSPITALITY DIRECTOR Dysphagia Treatment HOSPITALITY DIRECTOR Clinical Instructor Line Start: 05/07/22 11:09 Freq: Status: Active Protocol: Document 05/14/22 16:56 HERMINIA (Rec: 05/14/22 16:56 HERMINIA [id number]) Clinical Instructor Signature Clinical Instructor Clinical Instructor Yes HOSPITALITY DIRECTOR Dysphagia Treatment Start: 05/07/22 09:45 Freq: Status: Active Protocol: Document 05/14/22 10:13 EK (Rec: 05/14/22 10:33 EK [id number]) Dysphagia Treatment Session Time Visit Start Time 09:45 Visit Stop Time 10:05 Total Visit Minutes 20 Setting Assessment Location Acute Care Visit Type Note Type Treatment Note Next Note Type Next Note Type Treatment Note Patient Information Identification Type Name,ID Wristband Subjective Observations Pt was reclined in bed talking to NSG upon HOSPITALITY DIRECTOR and HOSPITALITY DIRECTOR improvement intern arrival. Pt was repositioned into upright position for PO trials. Treatment Liquids Trialed Thin Solids Trialed Dysphagia Mechanical Administration Type Straw,Dependent Feeding Pharyngeal Strategies Sitting Upright (90 deg),Chin Tuck Treatment Activities Observed NSG provide medications whole with water 4x. Pt coughed 1x, subsequent swallows were improved by reminding pt to tuck his chin while swallowing. Puree and dysphagia mechanical textures were trialed (i.e. egg salad and pudding with crackers). Throughout solid trials, no overt signs of penetration/ aspiration were noted. By the end of the session, the pt brought the spoon to his mouth with [id number] assistance. Continuing to encourage to self-feed as much as possible would be beneficial to increase overall awareness and strength while eating. Assessment Patient Response to Treatment Good Rehab Potential Good Assessment of Improvement NSG reported an improvement in pt's thrush. Pt followed directions for safe swallow strategies. Recommend pt's diet level be upgraded to dysphagia mechanical. Will continue to assess pt's swallow safety and upgrade diet as indicated. Pt's voice continues to be very quiet which is occasionally causing communication breakdowns. Recommend target communication strategies next session. Diet Recommendations Recommendations Continue Current Diet Liquids Order Thin Diet Order Dysphagia Mechanical Medication Recommendations As Tolerated,Whole in Carrier Additional Dietary Needs Single Sips,Controlled Sips,1: 1 Assistance,Encourage to Self -Feed,Reminders to Use Strategies Aspiration Precautions Recommended Precautions Upright at 90 Degrees,Frequent Rest Periods,Small Bites/Sips ,Chin Tuck,Check for Pocketing Treatment Plan Placement Recommendation after Discharge Senior Living Facility Appropriate for Continued Therapy Yes Therapy Recommendations Continue to see 1x daily over course of hospital stay to monitor progress and further assess/treat deficits as needed. Dysphagia Goals Pt to participate in ongoing evaluation of swallow safety with diet advancement as appropriate. Pt will safely tolerate least restrictive diet to meet his nutrition and hydration needs
[2022-05-14] MEDS: ATORVASTATIN 20 MG TABLET 40 MG PO (21:45)
--- NOTE | 2022-05-14 21:56 | PM.CALLCOV.1 ---
Call Coverage Note Note Narrative of Care Provided: CIWA protocol discontinued as patient shows improvement in his orientation. He is now written only for oral ativan.
[2022-05-14] MEDS: SODIUM CHLORIDE 0.9% FLUSH 10 ML IV (22:02)
[2022-05-15] VITALS (8 sets, daily range): BP systolic 130–143; BP diastolic 82–86; PULSE 78–87; RESP 16–22; TEMP 36.3–36.5; O2SAT 94–96
--- NOTE | 2022-05-15 09:34 | CM.DPC ---
DCP Cont: Have left Kailey at [facility] a message regarding acceptance and obtaining insurance auth. Will discuss further i team rounds. Patient and are aware of skilled need for patient. Will discuss with P.T. today as well, to see if there have been any improvements. P: DCP to continue to follow and will follow up with April at [facility]. Claudia Segal RN/Rig Welder
[2022-05-15] MEDS: ASPIRIN EC 81 MG TABLET PO (10:11)
[2022-05-15] MEDS: NICOTINE 7 MG PATCH TOP (10:12)
[2022-05-15] MEDS: SERTRALINE 50 MG TABLET 100 MG PO (10:12)
[2022-05-15] MEDS: ENOXAPARIN 40 MG/0.4 ML SYRINGE SUBCUT (10:12)
[2022-05-15] MEDS: MULTIVITAMIN 1 TABLET 1 TAB PO (10:12)
[2022-05-15] MEDS: FLUCONAZOLE 100 MG TABLET 200 MG PO (10:12)
[2022-05-15] MEDS: FOLIC ACID 1 MG TABLET PO (10:12)
--- NOTE | 2022-05-15 10:55 | ST.IPDYTX ---
Visit Care Team Role Provider Type Kenney Joshi MD Family Provider Non-Staff Primary Care Provider Specialty: Family Practice Address: [address] , [address], [place], [address] Email: Richard Hannon DO Emergency Provider Physician Referring Provider Specialty: Emergency Medicine Address: [address] [place] [address], [id number] Email: [email or web address] JONATHAN Sampson Admit Provider Physician Attending Provider Specialty: Internal Medicine Address: [address] [place] [address], [address] Email: [email or web address] SUSTAINMENT LOGISTICS ANALYST Dysphagia Treatment SUSTAINMENT LOGISTICS ANALYST Clinical Instructor Line Start: 05/07/22 11:09 Freq: Status: Active Protocol: Document 05/14/22 16:56 HERMINIA (Rec: 05/14/22 16:56 HERMINIA [id number]) Clinical Instructor Signature Clinical Instructor Clinical Instructor Yes SUSTAINMENT LOGISTICS ANALYST Dysphagia Treatment Start: 05/07/22 09:45 Freq: Status: Active Protocol: Document 05/15/22 10:50 ZS (Rec: 05/15/22 10:55 ZS [id number]) Dysphagia Treatment Session Time Visit Start Time 10:30 Visit Stop Time 10:45 Total Visit Minutes 15 Setting Assessment Location Acute Care Visit Type Note Type Treatment Note Next Note Type Next Note Type Treatment Note Patient Information Identification Type Name,ID Wristband Subjective Observations Pt was reclined in bed when SUSTAINMENT LOGISTICS ANALYST arrived. He was awake with eyes closed and opened his eyes when the SUSTAINMENT LOGISTICS ANALYST entered the room. Treatment Treatment Activities Discussed progress with eating . Spoke about volume when talking and increased intelligibility when communicating with others. Did not complete PO trials as pt refused food at this time. Assessment Patient Response to Treatment Good Rehab Potential Good Assessment of Improvement Pt reported no difficulty eating breakfast this morning and stated he had eggs, a marc smoothie, and chocolate pudding. The pt reported no difficulty chewing the eggs, though stated they were rubbery and cold. Volume was low when communicating, but pt increased volume and clarity when given a verbal prompt. Recommend continuing pt's diet level of dysphagia mechanical . Will continue to assess pt's swallow safety and upgrade diet as indicated. Increased talking noted as pt's energy has increased, though pt's voice continues to be very quiet which is occasionally causing communication breakdowns. Recommend target communication strategies next session. Diet Recommendations Recommendations Continue Current Diet Liquids Order Thin Diet Order Dysphagia Mechanical Medication Recommendations As Tolerated,Whole in Carrier Additional Dietary Needs Single Sips,Controlled Sips,1: 1 Assistance,Encourage to Self -Feed,Reminders to Use Strategies Aspiration Precautions Recommended Precautions Upright at 90 Degrees,Frequent Rest Periods,Small Bites/Sips ,Chin Tuck,Check for Pocketing Treatment Plan Placement Recommendation after Discharge Long-Term Facility Appropriate for Continued Therapy Yes Therapy Recommendations Continue to see 1x daily over course of hospital stay to monitor progress and further assess/treat deficits as needed. Dysphagia Goals Pt to participate in ongoing evaluation of swallow safety with diet advancement as appropriate. Pt will safely tolerate least restrictive diet to meet his nutrition and hydration needs
--- NOTE | 2022-05-15 11:31 | P.PN_ITS ---
Subjective Subjective Interval history: pt is more interactive and alert today, no new major complaints Exam Vital Signs (past 8 hours): - 05/15/22 10:00 Temperature 97.6 F Pulse Rate 86 Respiratory Rate 16 Blood Pressure 143/86 H Pulse Oximetry 95 Oxygen Flow Rate 0 Oxygen Delivery Method Room Air Oxygen Flow Rate 0 Const General: cooperative and frail appearing Orientation: alert, awake and oriented x3 HENMT Head: normal to inspection Ears: external ears normal Mouth: oral mucosae normal Eyes Pupils: PERRL EOM: EOM intact bilaterally Neck Neck: normal visual inspection and full ROM Resp Effort & Inspection: normal respiratory effort Auscultation: clear to auscultation bilaterally Cardio Rate: regular rate Rhythm: regular rhythm GI Palpation: soft and no hepatosplenomegaly Auscultation: normal bowel sounds Skin General: no rashes or lesions noted Neuro General: patient alert, patient awake, patient oriented x3, moves all extremities and no focal motor deficits Speech: speech normal Extrem General: normal to inspection (multiple crusted lesions in both legs), full ROM and no pedal edema Psych Appearance: grossly normal Objective Labs Result Diagrams: 05/12/22 05:15 05/12/22 05:15 [facility] Medical History (Updated 05/02/22 @ 00:00 by ) Asthma Chronic back pain greater than 3 months duration Closed intertrochanteric fracture of left femur Depression Drug abuse, IV History of CVA (cerebrovascular accident) Surgical History History of hernia repair Family History Father Unknown family medical history Mother No problems noted. Grandmother Myocardial infarction Grandfather No problems noted. Social History household members: friend(s) Smoking Status: Current some day smoker alcohol intake: current Assessment & Plan Assessment & Plan narrative: Assesment/Plan: Altered mental status/metabolic encephalopathy mental status improved, baseline -continue CIWA -continue close monitoring -continue PT/OT Acute respiratory failure resolved secondary to pneumonia completed abx ? Hypertension -continue prn meds systolic > 160 Hyperlipidemia ?- continue atorvastatin H/O Polysubstance abuse/IVDA ?- counseled ? Oral thrush ?- continue fluconazole ? DVT prophylaxis: lovenox Code status: full Disposition: pending for placement Time Spent With Patient Critical Care time: I spent a total of [] minutes of critical care time on this patient's care today; this time is exclusive of procedural time. Quality VTE Deep Vein Thrombosis/Pulmonary Embolism Present on Admission: No
--- NOTE | 2022-05-15 11:52 | OT.IP.TRT ---
Current Diagnoses Cerebral infarction, unspecified (05/01/22) Occupational Therapy Treatment Note M2 OT-IP Current Condition Start: 05/07/22 12:13 Freq: Status: Active Protocol: Document 05/07/22 12:13 CGR (Rec: 05/07/22 12:37 CGR [id number]) Occupational Therapy Current Condition Current Condition Evaluation Date 05/07/22 Treatment Diagnosis generalized weakness, hx IV drug use, R CVA 2016 Diagnosis Onset Date 05/01/22 M3 OT- IP Subjective and Pain Start: 05/07/22 12:13 Freq: Status: Active Protocol: Document 05/15/22 12:49 [facility] (Rec: 05/15/22 13:01 [facility] [id number]) OT- Subjective Occupational Therapy Visit Type Type Treatment Note Visit Start Time 11:13 Visit Stop Time 11:52 Total Visit Minutes 39 Occupational Therapy Visit Comments Patient Comments Pt agreed to get up and requesting to use the BSC for a bowel movement.. OT Pain Assessment Pain When Pain Assessed At Rest Pain Present Pain Present Pain Reported Location Neck Intensity 8 Scale Used Numeric (0 - 10) M4 OT- IP ADL's Start: 05/07/22 12:13 Freq: Status: Active Protocol: Document 05/15/22 12:49 [facility] (Rec: 05/15/22 13:01 [facility] [id number]) OT [id number] Comments OT Self-Feeding Comments Per pt has been needing assist to be fed at this time. OT ADL-Grooming General Evaluation Grooming Ability Total Assistance Areas Needing Assistance Combing/Brushing Hair Comments OT Grooming Comments seated on BSC OT ADL-Oral Care Comments Oral Care Comments not performed OT ADL-Dressing General Eval Lower Body Dressing Ability Maximum Assistance,Total Assistance Areas Needing Assistance Underpants/Brief,Socks Comments OT Dressing Comments MAinly Total assist for all , pt able to assist a little to lift up his feet so therapist able to aga brief over his feet and socks on his feet. OT ADL-Toileting General Evaluation Toileting Ability Total Assistance Areas Needing Assistance Manage Clothing,Perform Perineal Hygiene Comments OT Toileting Comments MAXA X 2 to stand to FWW while nursing aid assisting for brief and hygiene needs. OT ADL-Bathing Bathing Type Bathing Type Sponge Bath General Evaluation Bathing Ability Maximal Assistance,Total Assistance Areas Needing Assistance Wash/Dry Upper Body,Wash/Dry Back,Wash/Dry Perineal Area, Wash/Dry Lower Extremities Comments OT Bathing Comments Pt has difficulty to hold wash cloth in hands and needing both hands to hold the wash cloth and able to get bottom on his face otherwise needing assist for everything else. M5 OT- IP IADL's Start: 05/07/22 12:13 Freq: Status: Active Protocol: Document 05/07/22 12:13 CGR (Rec: 05/07/22 12:37 CGR [id number]) OT-Instrumental Activities of Daily Living Deficits IADL Deficits Identified Deficits Home Safety Awareness Awareness of Need for Assistance at Home Decreased Awareness Ability to Problem Solve Emergency Unable to Problem Solve Situations Medication Management Medication Management Comments Concerns about pt's ability to perform consistently Money Management Money Management Comments Concerns about pt's ability to perform consistently Meal Preparation Meal Preparation Comments Concerns about pt's ability to perform consistently Casino Investigator Casino Investigator Comments Concerns about pt's ability to perform consistently M6 OT- IP Functional Cognition Start: 05/07/22 12:13 Freq: Status: Active Protocol: Document 05/15/22 12:49 [facility] (Rec: 05/15/22 13:01 [facility] [id number]) Cognitive Factors Limiting Selfcare Function Cognitive Comments Cognitive Assessment Comments Pt able to follow simple commands. M7 OT- IP Mobility and Balance Start: 05/07/22 12:13 Freq: Status: Active Protocol: Document 05/15/22 12:49 [facility] (Rec: 05/15/22 13:01 [facility] [id number]) OT- Bed Mobility Assessment Supine to Sit Supine to Sit Assist Moderate Assistance,1 Person Assistance OT-Transfer Assessment Sit to and From Stand Sit to and from Stand Maximum Assistance,2 Person Assistance Transfers Transfer Ability Maximum Assistance,2 Person Assistance Technique Transfer Destination Bed,Bedside Commode Transfer Technique Stand Step Pivot Devices Transfer Assistive Devices Gait Belt,Front Wheeled Walker Comments Mobility Comments Pt able to come to stand with MAX AX 2 and assist to help hold his right hand on the FWW handle and assist for balance and to help guide the FWW. Pt tends to cross his feet over making it very hard for him to get his balance.Pt has decreased awareness of midline. OT- Balance Assessment Sitting Balance and Reactions Static Sitting Balance Ability Poor Dynamic Sitting Balance Ability Poor Standing Balance and Reactions Static Standing Balance Ability Poor Dynamic Standing Balance Ability Poor Comments Other Balance Tests/Deviations/Treatment Pt able to sit at the edge of : the bed with CGA to MODA and tends to lean to the left. M8 OT- IP Objective Assessments Start: 05/07/22 12:13 Freq: Status: Active Protocol: Document 05/07/22 12:13 CGR (Rec: 05/07/22 12:37 CGR [id number]) OT Gross Range of Motion Upper Extremity Range of Motion ROM Impairments AAROM WFL OT Strength Upper Extremity Strength Assessment Bilaterally Impaired Comments Strength Comments R weaker than L R grossly 2/5 L grossly 2+ to 3-/5 OT- Coordination Assessment Upper Extremity Finger to Nose Test Bilateral UE Impaired Finger Tapping Test Bilateral UE Impaired OT-Muscle Tone Assessment Muscle Tone WNL Yes OT Sensation Assessment Edema Edema Absent M9 OT- IP Assessment and Plan Start: 05/07/22 12:13 Freq: Status: Active Protocol: Document 05/15/22 12:49 [facility] (Rec: 05/15/22 13:01 [facility] [id number]) OT Summary Assessment and Plan Potential Rehabilitation Potential Fair Analytic Complexity at Evaluation High Summary OT Impairments Pain,Strength,Balance, Coordination,Functional Cognition,Functional Mobility, Self-Feeding,Grooming,Dressing ,Toileting,Bathing,Toilet Transfers,Shower Transfers, Activity Tolerance Progress Towards Goals Slow Progress due to Activity Tolerance Assessment Summary Pt is cooperative and still needing extensive two person assist for all ADl and transfer needs at this time. Pt would benefit from SNF to maximize his level of independence for needs otherwise will probably end up needing long LTC. Goals Self-Feeding Goal Moderate Assistance Grooming Goal Moderate Assistance Dressing Goal Moderate Assistance Toileting Goal Moderate Assistance Bathing Goal Moderate Assistance Toilet Transfer Goal Moderate Assistance Shower Transfer Goal Moderate Assistance Days to Meet Goals 45 Frequency of Treatment Frequency Of Treatment Once a Day Treatment Plan OT Treatment Plan ADL Training,Functional Cognition Training,Functional Mobility,Neuromuscular Re- education,Therapeutic Exercises,Patient/Family Education,Discharge Planning Other Treatment Recommendations and Next sitting balance with ADLs Treatment Focus Discharge Recommendations OT Discharge Recommendations SNF Rehab,LTAC Transportation Needs at Discharge Wheelchair/Cabulance
--- NOTE | 2022-05-15 11:53 | PT.IPTN ---
Current Diagnoses Cerebral infarction, unspecified (05/01/22) Physical Therapy Treatment Note M2 PT-IP Current Condition Start: 05/07/22 09:18 Freq: NEEDED Status: Active Protocol: Document 05/14/22 13:57 SP (Rec: 05/14/22 17:21 SP [id number]) Physical Therapy Current Condition Current Condition Evaluation Date 05/07/22 Treatment Diagnosis metabolic encephalopathy; polysubstance withdrawal; impaired mobility Onset Date 04/30/22 M3 PT-IP Subjective Start: 05/07/22 09:18 Freq: NEEDED Status: Active Protocol: Document 05/15/22 11:13 KS (Rec: 05/15/22 12:11 KS [id number]) Subjective Physical Therapy Visit Type Type Treatment Note Visit Start Time 11:13 Visit Stop Time 11:53 Total Visit Minutes 27 Notes Co-treat w/ OT. Split treatment 11:13-11:37, 11:50- 11:53 Number of LOCOMOTIVE MECHANIC Visits 2 Physical Therapy Visit Comments Patient Comments Pt alert and some what audible to understand responses this tx. M4 PT-IP Mobility and Gait Start: 05/07/22 09:18 Freq: NEEDED Status: Active Protocol: Document 05/15/22 11:13 KS (Rec: 05/15/22 12:11 KS [id number]) PT-Bed Mobility Assessment Supine to Sit Supine to Sit Moderate Assistance,1 Person Assistance Sit to Supine Sit to Supine Maximum Assistance,2 Person Assistance Scooting Scooting to Edge of Bed Moderate Assistance,Maximum Assistance Scooting Up and Down in Bed Dependent PT-Transfer Assessment Sit to and From Stand Sit to and from Stand Maximum Assistance,2 Person Assistance,Use of Upper Extremities Equipment Transfer Assistive Device Gait Belt,Front Wheeled Walker Orthotic/Prosthetic Devices or Brace: No Transfers Transfer Destination Bed,Bedside Commode Transfer Technique Stand Pivot Transfer Ability Level of Assist Maximum Assistance,2 Person Assistance,Use of Upper Extremities Comments Mobility Comments Pt in bed upon arrival and agreeable to work w/ therapy. Mod A for sup<>sit and scooting EOB. Pt requiring CGA to Mod A for seated balance due to lateral LOB. Pt requested to use BSC. Max A x2 and max cues for sit<>stand w / FWW. Pt performed twice and on second stand performed stand pivot to BSC w/ Max A x2 max cues ad FWW mgmt and for slow descent onto BSC. Arrived back following pt bowel movement and provided again Max A x2 for stand pivot back to bed. Pt w very poor control of extremities, weakness, poor balance and needing Max A x2 at all times. Pt left in bed w/ all needs in reach and alarm on. Gait Assessment Comments Gait Comments Stand step pivot x2 only - unable to ambulate or maintain balance standing today. Stair Climbing Assessment Comments Stair Climbing Comments Not assessed. PT-Balance Assessment Sitting Balance and Reactions Static Sitting Balance Ability Poor Dynamic Sitting Balance Ability Poor Standing Balance and Reactions Static Standing Balance Ability Poor Dynamic Standing Balance Ability Poor Device Used FWW M5 PT-IP Objective Assessments Start: 05/07/22 09:18 Freq: NEEDED Status: Active Protocol: Document 05/07/22 11:05 AW (Rec: 05/07/22 13:30 AW [id number]) Orientation Orientation/Cognition Level of Alertness Lethargic Orientation Name,Month,Place Safety Awareness Decreased Safety Awareness Gross Range of Motion Lower Extremity ROM Assessment Within Functional Limits Strength Lower Extremity Strength Assessment Bilaterally Impaired Comments Strength Comments R grossly 3-/5. L grossly 3+/5 Coordination Assessment Gross Coordination Gross Coordination Impaired Assessment Finger to Nose Test Activity Impossible Foot Tapping Test Minimal Impairment Coordination Comments Pt limited by BUE weakness with UE coordination testing. Sensation Assessment Sensation Gross Sensation WNL Muscle Tone Muscle Tone WNL Yes M6 PT-IP Treatment Start: 05/07/22 09:18 Freq: NEEDED Status: Active Protocol: Document 05/15/22 11:13 KS (Rec: 05/15/22 12:11 KS [id number]) Physical Therapy Treatment Education Education Provided Safety M7 PT-IP Assessment and Plan Start: 05/07/22 09:18 Freq: NEEDED Status: Active Protocol: Document 05/15/22 11:13 KS (Rec: 05/15/22 12:11 KS [id number]) PT Summary Assessment and Plan Potential Rehabilitation Potential Fair Status of Condition at Evaluation Evolving Summary Impairments Strength,Balance,Coordination, Cognition,Bed Mobility, Transfers,Gait Progress Towards Goals Slow Progress due to Medical Issues,Slow Progress due to Activity Tolerance,Slow Progress - Other Assessment Summary Pt requiring Mod to Max A x2 for bed mobility and Max A x2 for sit<>stand and stand step pivot transfers. Pt agreeable and w/ good effort but very weak and very poor control of extremities, requiring Max A x2 at all times to maintain balance and manage FWW as well as hold R hand hold on FWW. Pt is not safe to return home as he is unable to even get himself out of bed or transfer and does not have appropriate assistance and will need SNF or terminal make up operator placement. Goals Bed Mobility Goal Contact Guard Assistance Transfer Goal Standby Assistance,Front Wheeled Walker Gait Goal Standby Assistance,Front Wheel Walker Gait Distance 150 Other Goals up/down 4 steps with rails SBA - improve transfers and gait to SBA with 4WW Days to Meet Goals 10 Frequency of Treatment Frequency Of Treatment Once a Day Treatment Plan Physical Therapy Treatment Plan Bed Mobility Training,Transfer Training,Gait Training, Therapeutic Exercise,Balance Retraining,Discharge Planning, Hot or Cold Pack,Neuromuscular Re-ed,Coordination Retraining Other Recommendations and Next Treatment bed mob, sitting balance Focus activities, standing, transfers, gait using FWW if able. Precautions Other Precautions seizure precautions; falls risk Recommendations To Nursing Amount of Assist Needed 2 Person Assist Discharge Recommendations PT Discharge Recommendations SNF Rehab Equipment Needed for Home Before FWW Discharge Transportation Needs at Discharge Wheelchair/Cabulance
[2022-05-15] MEDS: LORazepam 1 MG TABLET PO ×2 (14:27→19:05)
--- NOTE | 2022-05-15 14:37 | CM.DPC ---
Addendum entered by Claudia Segal R.N. 05/15/22 15:10: Spoke to Talia Massey, nursing cap and hat production supervisor. She indicated that patient's ex- called, and was hoping that son could visit. Her name is Jeniffer Ramesh. Asked patient if she can be called for questions, and he gave permission. Also, Bridgette Beltran is listed as contact, and also lives on [address]. Had attempted to reach her, but number indicated was out of service. Received an updated phone number for her. Her number is: [phone]. Jeniffer's number is: [phone]. Asked Jeniffer if she would be willing to care for patient, since his assessment is not able to be completed until . She indicated, she lives on [address], and does not have the means or place to care for him. She did suggest calling Bridgette Beltran. Attwempted to call her, but line was busy, will attempt again. Original Note: DCP Cont: Discussed patient during team rounds. [facility] rehab has declined patient, and Nickolas at [facility] stated that they may be able to consider, as long as the [facility] care assessment is completed. CNO asked about possible home plan. According to P.T, and O.T, patient is full assist, two person. Is not able to feed himself, and is a max assist of two. Met with patient and discussed home prior to admission. Asked him about Deborah Beltran, who is listed as contacts. He stated, this is his ex-, she would not be able to give him any assistance at home, she takes care of an elderly man. Patient has been living in his RV. Contacted [facility] casework specialist, and left her a message. In the message, asked her if she can move up assessment before May 29. Asked her for her email, and gave her this casework specialist's email again. P: DCP to continue to work on placement for this patient. Have another message out to [facility] therapeutic case manager.
[2022-05-15] MEDS: ACETAMINOPHEN 325 MG TABLET PO (16:29)
[2022-05-15] MEDS: ATORVASTATIN 20 MG TABLET 40 MG PO (21:56)
[2022-05-15] MEDS: LORazepam 1 MG TABLET 2 MG PO (22:56)
[2022-05-16] VITALS (7 sets, daily range): BP systolic 127–149; BP diastolic 72–98; PULSE 81–92; RESP 16–18; TEMP 36–36.7; O2SAT 93–98
[2022-05-16] MEDS: LORazepam 1 MG TABLET 2 MG PO (06:22)
[2022-05-16 06:51] LABS: Alanine Aminotransferase 146 IU/L (<50); Alkaline Phosphatase 91 U/L (38-126); Aspartate Aminotransferase 109 IU/L (17-59); BUN Creatinine Ratio 42.1 (6-22); Bilirubin Total 0.6 mg/dL (0.2-1.3); Blood Urea Nitrogen 16 mg/dL (9-20); Carbon Dioxide 35 mmol/L (22-32); Chloride 98 mmol/L (98-107); Estimated Glomerular Filt Rate > 60 mL/min (>60); Globulin 3.9 g/dL (1.7-4.1); Glucose 102 mg/dL (80-110); HEMOLYSIS 28 (0-50); Potassium 4.3 mmol/L (3.4-5.1); Sodium 139 mmol/L (137-145); Total Protein 7.9 g/dL (6.3-8.2)
[2022-05-16] MEDS: ALBUTEROL 2.5 MG/3 ML NEB (ADULT) INH ×2 (09:25→20:18)
[2022-05-16] MEDS: ENOXAPARIN 40 MG/0.4 ML SYRINGE SUBCUT (09:55)
[2022-05-16] MEDS: SERTRALINE 50 MG TABLET 100 MG PO (09:55)
[2022-05-16] MEDS: MULTIVITAMIN 1 TABLET 1 TAB PO (09:55)
[2022-05-16] MEDS: ASPIRIN EC 81 MG TABLET PO (09:56)
[2022-05-16] MEDS: FOLIC ACID 1 MG TABLET PO (09:56)
[2022-05-16] MEDS: NICOTINE 7 MG PATCH TOP (09:56)
--- NOTE | 2022-05-16 11:47 | PT.IPTN ---
Current Diagnoses Cerebral infarction, unspecified (05/01/22) Physical Therapy Treatment Note M2 PT-IP Current Condition Start: 05/07/22 09:18 Freq: NEEDED Status: Active Protocol: Document 05/14/22 13:57 SP (Rec: 05/14/22 17:21 SP [id number]) Physical Therapy Current Condition Current Condition Evaluation Date 05/07/22 Treatment Diagnosis metabolic encephalopathy; polysubstance withdrawal; impaired mobility Onset Date 04/30/22 M3 PT-IP Subjective Start: 05/07/22 09:18 Freq: NEEDED Status: Active Protocol: Document 05/16/22 11:21 KS (Rec: 05/16/22 12:39 KS [id number]) Subjective Physical Therapy Visit Type Type Treatment Note Visit Start Time 11:21 Visit Stop Time 11:47 Total Visit Minutes 26 Notes Co-treat w/ OT - partial Number of CHIEF UNDERWRITER Visits 3 Physical Therapy Visit Comments Patient Comments Pt alert and some what audible to understand responses this tx. M4 PT-IP Mobility and Gait Start: 05/07/22 09:18 Freq: NEEDED Status: Active Protocol: Document 05/16/22 11:21 KS (Rec: 05/16/22 12:39 KS [id number]) PT-Bed Mobility Assessment Supine to Sit Supine to Sit Moderate Assistance,1 Person Assistance Scooting Scooting to Edge of Bed Moderate Assistance,Maximum Assistance PT-Transfer Assessment Sit to and From Stand Sit to and from Stand Maximum Assistance,2 Person Assistance,Use of Upper Extremities Equipment Transfer Assistive Device Gait Belt,Front Wheeled Walker ,4 Wheeled Walker Orthotic/Prosthetic Devices or Brace: No Transfers Transfer Destination Chair Transfer Technique Stand Step Pivot Transfer Ability Level of Assist Maximum Assistance,2 Person Assistance,Use of Upper Extremities Comments Mobility Comments Pt in bed upon arrival and agreeable to ambulate. Mod A for sup<>sit, MAx A for scooting EOB but pt w/ good effort. Very minimal use of RUE. Pt sit<>stand w/ FWW, needs verbal and tactile cues to widen base of support as he tends to have very NBOS, R knee buckle, or even crossed legs due to tone and weakness w/ poor control of RLE. Pt ambulated ~ 2 ft to chair and performed stand step pivot w/ FWW MAx A x2 and max verbal and tactile cues w/ FWW management. After seated rest break, pt ambulated additional 4 ft w/ chair follow by TRAIN RESERVATION CLERK w / FWW Max A x2 max cues and FWW mgmt. Pt requesting to shower and use 4WW. Max A x2, pt ambulated ~3 ft w/ 4WW Max A x2 and max cues before performing stand step pivot to 4WW to use in shower. Pt left w/ OT and TRAIN RESERVATION CLERK. Gait Assessment Gait Gait Assistance Required: Maximum Assistance,2 Person Assist Distance (Feet) 4 Able to Maintain Weight Bearing Status Yes During Gait Assistive Devices Assistive Device Gait Belt,Front Wheeled Walker ,4 Wheeled Walker Orthotic/Prosthetic Devices or Brace: No Gait Deviations General Gait Pattern Ataxic,Decreased Stride Length ,Decreased Feet Clearance, Flexed Trunk,Lateral Trunk Lean,Narrow Based Gait,Step-to Gait Factors Limiting Gait Function Factors Limiting Gait Function Decreased Activity Tolerance, Decreased Strength,Difficulty Following Directions, Incoordination,Pain,Poor Balance,Poor Safety Awareness Comments Gait Comments Able to ambulate short distances again today, but requires Max A x2 to maintain balance w/ verbal and tactile cues for upright posture, step sequencing, and FWW mgmt. Stair Climbing Assessment Comments Stair Climbing Comments Not assessed. PT-Balance Assessment Sitting Balance and Reactions Static Sitting Balance Ability Poor Dynamic Sitting Balance Ability Poor Standing Balance and Reactions Static Standing Balance Ability Poor Dynamic Standing Balance Ability Poor Device Used FWW M5 PT-IP Objective Assessments Start: 05/07/22 09:18 Freq: NEEDED Status: Active Protocol: Document 05/07/22 11:05 AW (Rec: 05/07/22 13:30 AW [id number]) Orientation Orientation/Cognition Level of Alertness Lethargic Orientation Name,Month,Place Safety Awareness Decreased Safety Awareness Gross Range of Motion Lower Extremity ROM Assessment Within Functional Limits Strength Lower Extremity Strength Assessment Bilaterally Impaired Comments Strength Comments R grossly 3-/5. L grossly 3+/5 Coordination Assessment Gross Coordination Gross Coordination Impaired Assessment Finger to Nose Test Activity Impossible Foot Tapping Test Minimal Impairment Coordination Comments Pt limited by BUE weakness with UE coordination testing. Sensation Assessment Sensation Gross Sensation WNL Muscle Tone Muscle Tone WNL Yes M6 PT-IP Treatment Start: 05/07/22 09:18 Freq: NEEDED Status: Active Protocol: Document 05/16/22 11:21 KS (Rec: 05/16/22 12:39 KS [id number]) Physical Therapy Treatment Education Education Provided Safety M7 PT-IP Assessment and Plan Start: 05/07/22 09:18 Freq: NEEDED Status: Active Protocol: Document 05/16/22 11:21 KS (Rec: 05/16/22 12:39 SD [id number]) PT Summary Assessment and Plan Potential Rehabilitation Potential Fair Status of Condition at Evaluation Evolving Summary Impairments Strength,Balance,Coordination, Cognition,Bed Mobility, Transfers,Gait Progress Towards Goals Slow Progress due to Medical Issues,Slow Progress due to Activity Tolerance,Slow Progress - Other Assessment Summary Progress made from yesterday w / pts activity tolerance, however still requires Max A x2 w/ nearly all tasks due to weakness, increased tone RUE and RLE and poor control of extremeties. Pt is not safe to return home as he is unable to even get himself out of bed or transfer and does not have appropriate assistance and will need SNF or retirement placement. Goals Bed Mobility Goal Contact Guard Assistance Transfer Goal Standby Assistance,Front Wheeled Walker Gait Goal Standby Assistance,Front Wheel Walker Gait Distance 150 Other Goals up/down 4 steps with rails SBA - improve transfers and gait to SBA with 4WW Days to Meet Goals 10 Frequency of Treatment Frequency Of Treatment Once a Day Treatment Plan Physical Therapy Treatment Plan Bed Mobility Training,Transfer Training,Gait Training, Therapeutic Exercise,Balance Retraining,Discharge Planning, Hot or Cold Pack,Neuromuscular Re-ed,Coordination Retraining Other Recommendations and Next Treatment bed mob, sitting balance Focus activities, standing, transfers, gait using FWW if able. Precautions Other Precautions seizure precautions; falls risk Recommendations To Nursing Amount of Assist Needed 2 Person Assist Discharge Recommendations PT Discharge Recommendations SNF Rehab Equipment Needed for Home Before FWW Discharge Transportation Needs at Discharge Stretcher/Ambulance
--- NOTE | 2022-05-16 12:11 | SLP.IPNOTE ---
Attempted to see pt at 12:00, but pt was in the shower. Will attempt tomorrow as pt will likely be tired following shower.
--- NOTE | 2022-05-16 12:14 | OT.IP.TRT ---
Current Diagnoses Cerebral infarction, unspecified (05/01/22) Occupational Therapy Treatment Note M2 OT-IP Current Condition Start: 05/07/22 12:13 Freq: Status: Active Protocol: Document 05/07/22 12:13 CGR (Rec: 05/07/22 12:37 CGR [id number]) Occupational Therapy Current Condition Current Condition Evaluation Date 05/07/22 Treatment Diagnosis generalized weakness, hx IV drug use, R CVA 2016 Diagnosis Onset Date 05/01/22 M3 OT- IP Subjective and Pain Start: 05/07/22 12:13 Freq: Status: Active Protocol: Document 05/16/22 12:14 [facility] (Rec: 05/16/22 12:31 [facility] [id number]) OT- Subjective Occupational Therapy Visit Type Type Treatment Note Visit Start Time 11:13 Visit Stop Time 12:14 Total Visit Minutes 61 Occupational Therapy Visit Comments Patient Comments Pt wanting to shower. DUSTLESS OPERATOR present for mobility needs and nursing aid for the shower as pt needing extensive two person assist for needs. Patient/Caregiver Goals TO get better. OT Pain Assessment Pain When Pain Assessed At Rest Pain Present Pain Present Denied Pain M4 OT- IP ADL's Start: 05/07/22 12:13 Freq: Status: Active Protocol: Document 05/16/22 12:14 [facility] (Rec: 05/16/22 12:31 [facility] [id number]) OT ADL-Grooming General Evaluation Grooming Ability Maximum Assistance,Total Assistance Areas Needing Assistance Combing/Brushing Hair,Face Washing Comments OT Grooming Comments Pt able to use left hand to wash his face and needing assist for completeness. OT ADL-Oral Care Comments Oral Care Comments not performed OT ADL-Dressing General Eval Lower Body Dressing Ability Maximum Assistance,Total Assistance Areas Needing Assistance Underpants/Brief,Socks Comments OT Dressing Comments Pt able to lift his legs and feet up better today so therapist able to get his socks on and brief over his feet. MAX A/total AX 1 to stand and nursing assisted to pull up the brief up over his hips. Pt still needing MAXA for gown management due to lack to strength and ROM to assist more. Right UE able to assist minimally. OT ADL-Bathing Bathing Type Bathing Type Shower General Evaluation Bathing Ability Maximal Assistance Areas Needing Assistance Wash/Dry Upper Body,Wash/Dry Back,Wash/Dry Perineal Area, Wash/Dry Lower Extremities Comments OT Bathing Comments Pt able to hold the wash cloth with left hand to help wash his chest, face and upper legs and needing assist for completeness for all over needs. Another person needed as pt needing MAX/Total asist to stand while nursing aid able to wash/dry his pericare needs. M5 OT- IP IADL's Start: 05/07/22 12:13 Freq: Status: Active Protocol: Document 05/07/22 12:13 CGR (Rec: 05/07/22 12:37 CGR [id number]) OT-Instrumental Activities of Daily Living Deficits IADL Deficits Identified Deficits Home Safety Awareness Awareness of Need for Assistance at Home Decreased Awareness Ability to Problem Solve Emergency Unable to Problem Solve Situations Medication Management Medication Management Comments Concerns about pt's ability to perform consistently Money Management Money Management Comments Concerns about pt's ability to perform consistently Meal Preparation Meal Preparation Comments Concerns about pt's ability to perform consistently Process Specialist Process Specialist Comments Concerns about pt's ability to perform consistently M6 OT- IP Functional Cognition Start: 05/07/22 12:13 Freq: Status: Active Protocol: Document 05/16/22 12:14 [facility] (Rec: 05/16/22 12:31 [facility] [id number]) Cognitive Factors Limiting Selfcare Function Cognitive Ability Level of Alertness Alert,Drowsy Attention Span Ability Capable of Focused Attention, Capable of Sustained Attention Ability to Follow Commands Able to Follow One Step Commands with Increased Time, Able to Follow One Step Commands with Repetition Cognitive Comments Cognitive Assessment Comments Pt able to follow simple commands for ADl and mobility needs. M7 OT- IP Mobility and Balance Start: 05/07/22 12:13 Freq: Status: Active Protocol: Document 05/16/22 12:14 [facility] (Rec: 05/16/22 12:31 [facility] [id number]) OT- Bed Mobility Assessment Supine to Sit Supine to Sit Assist Moderate Assistance,1 Person Assistance OT-Transfer Assessment Sit to and From Stand Sit to and from Stand Maximum Assistance,2 Person Assistance Transfers Transfer Ability Maximum Assistance,2 Person Assistance Technique Transfer Destination Bed,Shower Stall Devices Transfer Assistive Devices Gait Belt,Front Wheeled Walker ,4 Wheeled Walker Comments Mobility Comments Pt able to take a few step with MAX AX 2, asisst to hold his right hand on the handle of FWW and 4ww and assist for balance, cues to keep his feet apart, and assist to move the fww.4ww. OT- Balance Assessment Sitting Balance and Reactions Static Sitting Balance Ability Fair Dynamic Sitting Balance Ability Poor Standing Balance and Reactions Static Standing Balance Ability Poor Dynamic Standing Balance Ability Poor Comments Other Balance Tests/Deviations/Treatment Pt able to sit on the edge of : the bed with close SBA to ROULA . M8 OT- IP Objective Assessments Start: 05/07/22 12:13 Freq: Status: Active Protocol: Document 05/07/22 12:13 CGR (Rec: 05/07/22 12:37 CGR [id number]) OT Gross Range of Motion Upper Extremity Range of Motion ROM Impairments AAROM WFL OT Strength Upper Extremity Strength Assessment Bilaterally Impaired Comments Strength Comments R weaker than L R grossly 2/5 L grossly 2+ to 3-/5 OT- Coordination Assessment Upper Extremity Finger to Nose Test Bilateral UE Impaired Finger Tapping Test Bilateral UE Impaired OT-Muscle Tone Assessment Muscle Tone WNL Yes OT Sensation Assessment Edema Edema Absent M9 OT- IP Assessment and Plan Start: 05/07/22 12:13 Freq: Status: Active Protocol: Document 05/16/22 12:14 [facility] (Rec: 05/16/22 12:31 [facility] [id number]) OT Summary Assessment and Plan Potential Rehabilitation Potential Fair Analytic Complexity at Evaluation High Summary OT Impairments Pain,Strength,Balance, Coordination,Functional Cognition,Functional Mobility, Self-Feeding,Grooming,Dressing ,Toileting,Bathing,Toilet Transfers,Shower Transfers, Activity Tolerance Progress Towards Goals Progressing Toward Goals,Slow Progress due to Medical Issues Assessment Summary Pt motivated and wanting to shower today and insistent able to do while seated on his 4ww that he uses in the shower prior at times. Pt able to transfer with MAX AX 2 and at times needing stand pivot assist MAX AX2 due to the small space in the bathroom to transfer to the recliner. Pt will greatly benefit from skilled rehab to maximize his needs. Goals Self-Feeding Goal Minimal Assistance Grooming Goal Minimal Assistance Dressing Goal Moderate Assistance Toileting Goal Moderate Assistance Bathing Goal Moderate Assistance Toilet Transfer Goal Minimal Assistance Shower Transfer Goal Minimal Assistance Days to Meet Goals 45 Frequency of Treatment Frequency Of Treatment Once a Day Treatment Plan OT Treatment Plan ADL Training,Functional Cognition Training,Functional Mobility,Neuromuscular Re- education,Therapeutic Exercises,Patient/Family Education,Discharge Planning Other Treatment Recommendations and Next sitting balance with ADLs Treatment Focus Discharge Recommendations OT Discharge Recommendations SNF Rehab,LTAC Transportation Needs at Discharge Wheelchair/Cabulance
--- NOTE | 2022-05-16 14:00 | DI.MRI.S_ITS ---
PROCEDURE: MR CERVICAL SPINE WO/W CON INDICATIONS: progressive weakness TECHNIQUE: Noncontrast sagittal T1 spin echo and T2 fast spin echo, sagittal STIR, foraminal oblique sagittal T2 fast spin echo, axial gradient echo or T2 fast spin echo through the cervical spine. After the administration of contrast, axial and sagittal T1 spin echo with fat saturation through the cervical spine. COMPARISON: [facility], MR, MR HEAD/BRAIN WO/W CON, 05/16/2022, 15:04. [facility], CT, CT CERVICAL SPINE WO CON, 04/16/2022, 21:55. FINDINGS: Image quality: This examination is limited by involuntary motion artifact. Alignment and curvature: Minimal anterolisthesis is seen at C2-C3. There is minimal retrolisthesis seen at C3-C4 and C4-C5. Minimal retrolisthesis is also seen at C6-C7. Marrow: Marrow is normal in overall signal, without suspicious enhancement. Spinal cord: Visualized spinal cord has normal size and signal. No cerebellar tonsillar herniation. No abnormal intramedullary enhancement. Paraspinous soft tissues: No paravertebral masses or suspicious enhancement. C2-3: Moderate loss of disc height is seen. Loss of disc signal is seen. Moderate disc osteophyte complex is seen, with a central disc osteophyte protrusion. At least moderate facet hypertrophy is seen. Severe bilateral neural foraminal narrowing can be seen. Moderate to severe central canal narrowing is seen, with associated ventral cord flattening. C3-4: At least moderate loss of disc height and disc signal can be seen. Moderate disc osteophyte complex is seen, with a central disc osteophyte protrusion. At least moderate facet hypertrophy is seen at this level. There is severe bilateral neural foraminal narrowing. Moderate to severe central canal narrowing is seen, with associated ventral cord flattening. C4-5: At least moderate loss of disc height and disc signal can be seen. Moderate generalized disc osteophyte complex is seen. There is a central disc osteophyte protrusion seen. At least moderate facet hypertrophy is seen. Severe bilateral neural foraminal narrowing is seen. Moderate to severe central canal narrowing is seen. Associated ventral cord flattening is seen. C5-6: The disc height is well-preserved. Loss of disc signal is seen at this level. Moderate generalized disc osteophyte complex is seen. There is a central disc osteophyte protrusion. At least moderate facet hypertrophy is seen. There is moderate to severe bilateral neural foraminal narrowing seen. Moderate central canal narrowing is seen. There is associated mass effect upon the ventral spinal cord. C6-7: Moderate loss of disc height is seen. Loss of disc signal is seen. Moderate disc osteophyte complex is seen. At least moderate disc osteophyte complex is seen, which is eccentric to the right side. Moderate facet joint hypertrophy is seen. There is moderate to severe bilateral neural foraminal narrowing seen. Moderate central canal narrowing is seen. C7-T1: The disc height is well-preserved. Loss of disc signal is seen at this level. Moderate generalized disc osteophyte complex is seen. Moderate facet joint hypertrophy is seen. There is moderate right-sided and at least moderate left-sided neural foraminal narrowing. Minimal central canal narrowing is seen. IMPRESSION: Multiple levels prominent cervical spine degenerative change can be seen. Dictated by: Warner Cantu M.D. on 05/16/2022 at 15:36 Approved by: Warner Cantu M.D. on 05/16/2022 at 15:40
--- NOTE | 2022-05-16 14:00 | DI.MRI.S_ITS ---
PROCEDURE: MR HEAD/BRAIN WO/W CON INDICATIONS: progressive weakness TECHNIQUE: Noncontrast axial T1 spin echo, axial T2 fast spin echo, sagittal and axial FLAIR, coronal T2 fast spin echo, axial gradient echo, axial diffusion and ADC through the brain. After the administration of contrast, axial and coronal and sagittal T1 spin echo with fat saturation through the brain. COMPARISON: [facility], CT, CT ANGIO HEAD AND NECK, 05/01/2022, 1:55. [facility], MR, MR HEAD/BRAIN WO CON, 05/01/2022, 10:50. [facility], MR, MR CERVICAL SPINE WO/W CON, 05/16/2022, 15:04. FINDINGS: Image quality: This examination is limited by involuntary motion artifact. CSF spaces: Basal cisterns are patent. No extra-axial fluid collections. Ventricles are normal in size and shape. Brain: No midline shift. No intracranial bleeds or masses. No abnormal intracranial enhancement. There is cerebral volume loss for age. There is periventricular white matter chronic small vessel ischemic change. The brainstem appears normal. Diffusion-weighted images demonstrate no acute ischemic insults. No chronic ischemic insults. Normal intravascular flow voids are present. Skull and face: Calvarial marrow is normal in signal. Orbits appear normal. Sinuses: Moderate mucosal thickening is seen within the left maxillary sinus. Minimal mucosal thickening is seen elsewhere within the paranasal sinuses. No significant abnormal fluid is seen within the mastoid air cells. IMPRESSION: No findings of acute or subacute infarction can be seen. Motion limited study, without masses or abnormal enhancement seen. Dictated by: Warner Cantu M.D. on 05/16/2022 at 15:32 Approved by: Warner Cantu M.D. on 05/16/2022 at 15:35
--- NOTE | 2022-05-16 14:20 | CM.DANOTE ---
DCP Note Cont: DCP spoke with Bridgette this afternoon to inquire about her intentions for taking care of patient. Bridgette states that she is unable to take care of patient as she is currently taking care of two other elderly men at the moment. Bridgette wants to know more information regarding pt status. Bridgette states that she wants to come up here and see pt. DCP states visitors are still restricted to see pt. Bridgette states that the only other person would be Hermilo, who pt was living with before admission in a motor home. P: DCP to continue working on safe plan. [facility], Vivian, still planning for assessment on May 29 but would call if she had a cancellation. Roya More RN/GISSELLE Discharge Planning/Care Management Advanced directive, confirm from CLINIC Start: 05/01/22 18:27 Freq: Q24H Status: Complete Protocol: Document 05/05/22 18:00 SH (Rec: 05/05/22 21:57 SH [id number]) Advance Directive, confirm on record Time 21:20 Person contacted pt Copy received No Document 05/06/22 17:51 YAD (Rec: 05/06/22 17:51 YAD [id number]) Advance Directive, confirm on record Time 21:20 Person contacted pt Copy received No Time 17:51 Person contacted Pt Copy received No CM Discharge Assessment Start: 05/02/22 10:28 Freq: Status: Active Protocol: Document 05/02/22 10:29 AJ (Rec: 05/02/22 10:32 AJ [id number]) Discharge Planning Assessment Assigned Land Conservation Specialist Roya More RN/GISSELLE Advance Directives? No Advance Directives on File No History Provided By Medical Record Household Members friend(s) Independent with ADL's Yes Barriers to Discharge Yes Comment Homeless, lives on a fixed income, active/daily IVDU, h/o poly substance abuse. Pt needs resources for treatment. Discharge Plan Home Referrals Initiated None needed Additional Comment At this time Whiteboard Updated in Patient Room with No name and ext. # of Land Conservation Specialist Comment Unable to complete assessment. Pt not able to have conversations. Pt kicking in bed. Review Status In Process Please Provide Date Initial DC 05/02/22 Assessment Was Performed Next Review Type Continued Stay Review
[2022-05-16] MEDS: LORazepam 1 MG TABLET PO ×3 (14:27→23:21)
[2022-05-16 17:24] LABS: C-Reactive Protein Quant 0.6 mg/dL (<1.0)
[2022-05-16 17:53] LABS: Thyroid Stimulating Hormone 1.57 uIU/mL (0.47-4.68)
[2022-05-16 17:57] LABS: Erythrocyte Sedimentation Rate 7 MM/HR (0-15)
--- NOTE | 2022-05-16 18:21 | PM.PN.1 ---
Subjective Subjective Date Patient Seen: 05/16/22 Time Patient Seen: 08:00 Interval history: He is quite weak still. He notes this primarily in his upper extremities, but also lower extremities. Worse on the right. He has neck pain, right arm pain. He has numbness in his upper extremities. He has a very soft voice. Exam Vital Signs (past 8 hours): - 05/16/22 12:00 05/16/22 18:00 Temperature 97.6 F 98.7 F Pulse Rate 92 H 68 Respiratory Rate 16 16 Blood Pressure 149/82 H 111/68 Pulse Oximetry 98 97 Oxygen Flow Rate 0 0 Oxygen Delivery Method Room Air Oxygen Flow Rate 0 Narrative Exam Narrative: GEN: chronically ill appearing HEENT: dysphonia, no ptosis CV: regular rate and rhythm pULM: clear bilaterally NEURO: 4/5 weakness in upper extremities, diffuse subjective sensory loss Objective Labs Result Diagrams: 05/12/22 05:15 05/16/22 06:16 Labs: Laboratory Results - last 24 hr 05/16/22 05/16/22 05/16/22 06:16 16:30 16:30 ESR 7 Sodium 139 Potassium 4.3 Chloride 98 Carbon Dioxide 35 H BUN 16 Creatinine 0.38 L Estimated GFR > 60 BUN/Creatinine Ratio 42.1 H Glucose 102 Calcium 9.0 Total Bilirubin 0.6 AST 109 H ALT 146 H Alkaline Phosphatase 91 C-Reactive Protein 0.6 Total Protein 7.9 Albumin 4.0 Globulin 3.9 Albumin/Globulin Ratio 1.0 TSH 05/16/22 16:30 ESR Sodium Potassium Chloride Carbon Dioxide BUN Creatinine Estimated GFR BUN/Creatinine Ratio Glucose Calcium Total Bilirubin AST ALT Alkaline Phosphatase C-Reactive Protein Total Protein Albumin Globulin Albumin/Globulin Ratio TSH 1.57 D [facility] Medical History (Updated 05/02/22 @ 00:00 by ) Asthma Chronic back pain greater than 3 months duration Closed intertrochanteric fracture of left femur Depression Drug abuse, IV History of CVA (cerebrovascular accident) Surgical History History of hernia repair Family History Father Unknown family medical history Mother No problems noted. Grandmother Myocardial infarction Grandfather No problems noted. Social History household members: friend(s) Smoking Status: Current some day smoker alcohol intake: current Assessment & Plan Assessment & Plan narrative: 1. Weakness -does appear to have weakness in multiple extremities, worse in the right upper extremity -also has arm pain and neck pain -dysphonia also noted -MRI previously on admission showed no stroke -order repeat MRI head to rule out false negative -MRI c-spine eval cord pathology -achr ab to eval for myasthenia -check esr, crp, byron, thyroid -HIV negative -CK negative 2. Altered mental status/metabolic encephalopathy -mental status improved, possibly baseline -continue CIWA -continue close monitoring -continue PT/OT 3. Acute respiratory failure resolved -secondary to pneumonia completed abx ? 4.Hypertension -continue prn meds systolic > 160 5. Hyperlipidemia ?- continue atorvastatin 6. H/O Polysubstance abuse/IVDA - counseled -urine drug screen showed opiates and amphetamines ? Oral thrush -stop fluconazole, did get 7 days -LFTs were rising, possibly secondary to fluconazole ? DVT prophylaxis: lovenox Code status: full Disposition: pending for placement Time Spent With Patient Critical Care time: I spent a total of [] minutes of critical care time on this patient's care today; this time is exclusive of procedural time. Quality VTE Deep Vein Thrombosis/Pulmonary Embolism Present on Admission: No
[2022-05-16] MEDS: ATORVASTATIN 20 MG TABLET 40 MG PO (21:37)
[2022-05-17] VITALS (8 sets, daily range): BP systolic 108–134; BP diastolic 73–82; PULSE 63–110; RESP 16–18; TEMP 36.3–37.2; O2SAT 96–99
[2022-05-17] MEDS: LORazepam 1 MG TABLET PO ×3 (03:53→20:26)
[2022-05-17] MEDS: SODIUM CHLORIDE 0.9% FLUSH 10 ML IV ×2 (07:05→10:15)
[2022-05-17 07:35] LABS: Alanine Aminotransferase 146 IU/L (<50); Albumin Globulin Ratio 1.1 (1.0-2.8); Alkaline Phosphatase 89 U/L (38-126); Aspartate Aminotransferase 103 IU/L (17-59); Bilirubin Total 0.5 mg/dL (0.2-1.3); Blood Urea Nitrogen 16 mg/dL (9-20); Calcium 9.1 mg/dL (8.4-10.2); Carbon Dioxide 36 mmol/L (22-32); Chloride 97 mmol/L (98-107); Estimated Glomerular Filt Rate > 60 mL/min (>60); Globulin 3.7 g/dL (1.7-4.1); Glucose 104 mg/dL (80-110); HEMOLYSIS 16 (0-50); Potassium 4.4 mmol/L (3.4-5.1); Sodium 137 mmol/L (137-145); Total Protein 7.7 g/dL (6.3-8.2)
[2022-05-17] MEDS: ENOXAPARIN 40 MG/0.4 ML SYRINGE SUBCUT (09:27)
[2022-05-17] MEDS: ASPIRIN EC 81 MG TABLET PO (09:28)
[2022-05-17] MEDS: FOLIC ACID 1 MG TABLET PO (09:28)
[2022-05-17] MEDS: SERTRALINE 50 MG TABLET 100 MG PO (09:28)
[2022-05-17] MEDS: MULTIVITAMIN 1 TABLET 1 TAB PO (09:28)
--- NOTE | 2022-05-17 11:22 | DIET.CONS2 ---
Dietary Inpatient Consultation Note Admission Date: 05/01/2022 04:28 Pt consumed 100% breakfast (2% milk, pancakes, sonja protein smoothie). Trialing weighted silverware today at lunch and adding in cottage cheese and chopped mac & cheese as these are familiar foods to pt and more in line with his usual diet. Diet: 05/14/22 Dinner Dysphagia Diet Diet Modifications: protein smoothie tid, 1/2 portions Liquid consistency: Normal/Thin Food texture: Dysphagia Mechanical Soft Nutrition Percent Meal Consumed 75% 05/17/22 09:00 Percent Meal Consumed 50% 05/16/22 19:00 Percent Meal Consumed 10% 05/16/22 07:00 Percent Meal Consumed 25% 05/15/22 15:19 Electronically Signed by: Michaela Alicea 05/17/22 11:22 Clinical Dietitian [address] [address]
--- NOTE | 2022-05-17 11:24 | ST.IPDYTX ---
Visit Care Team Role Provider Type Amarilis Alcantara MD Other Providers Physician Specialty: Orthopedics Orthopedic Surgery Address: [address] [place] [address], [address] Email: [email or web address] Kenney Joshi MD Family Provider Non-Staff Primary Care Provider Specialty: Family Practice Address: [address] [facility] [facility], [address], [place], [address] Email: Richard Hannon DO Emergency Provider Physician Referring Provider Specialty: Emergency Medicine Address: [address] [place] [address], [address] Email: [email or web address] JONATHAN Sampson Admit Provider Physician Attending Provider Specialty: Internal Medicine Address: [address] [place] [address], [address] Email: [email or web address] RN INTERNAL MEDICINE Dysphagia Treatment RN INTERNAL MEDICINE Clinical Instructor Line Start: 05/07/22 11:09 Freq: Status: Active Protocol: Document 05/17/22 11:23 MG (Rec: 05/17/22 11:24 MG [id number]) Clinical Instructor Signature Clinical Instructor Clinical Instructor Yes: Yarelis Foster MA, [facility]RN INTERNAL MEDICINE RN INTERNAL MEDICINE Dysphagia Treatment Start: 05/07/22 09:45 Freq: Status: Active Protocol: Document 05/17/22 09:42 EK (Rec: 05/17/22 10:17 EK [id number]) Dysphagia Treatment Session Time Visit Start Time 08:55 Visit Stop Time 09:10 Total Visit Minutes 15 Setting Assessment Location Acute Care Visit Type Note Type Treatment Note Next Note Type Next Note Type Treatment Note Patient Information Identification Type Name,ID Wristband Subjective Observations Pt was reclined in bed upon RN INTERNAL MEDICINE and RN INTERNAL MEDICINE general intern arrival. Pt was repositioned into upright position for PO trials. Treatment Solids Trialed Dysphagia Advanced Administration Type Dependent Feeding Oral Strategies Upright at 90 degrees Pharyngeal Strategies Sitting Upright (90 deg),Small Bites and Sips Treatment Activities Dysphagia advanced texture was trialed (i.e. small bites of peaches). Chewing was prolonged due to the pt's lack of teeth but no overt signs of penetration/aspiration were noted. During trials, the pt brought the spoon to his mouth with [id number] assistance. It is recommended to continue to encourage to self-feed as much as possible to increase overall awareness and strength while eating. Assessment Patient Response to Treatment Good Rehab Potential Good Assessment of Improvement Pt is steadily improving. NSG reported that pt ate the majority of his breakfast today. Due to possible fatigue , pt?s diet level should continue to be dysphagia mechanical. However, it is recommended that the pt be offered dysphagia advanced level texture as part of the meal in order to challenge the pt and help him to return to a diet level that is near his baseline. Pt reported to RN INTERNAL MEDICINE general intern that he typically eats cottage cheese and macaroni and cheese at home. Of note, the pt's voice was slightly louder compared to previous sessions. Diet Recommendations Recommendations Continue Current Diet Liquids Order Thin Diet Order Dysphagia Mechanical Medication Recommendations As Tolerated,Whole in Carrier Additional Dietary Needs Single Sips,Controlled Sips,1: 1 Assistance,Encourage to Self -Feed,Reminders to Use Strategies Aspiration Precautions Recommended Precautions Upright at 90 Degrees,Frequent Rest Periods,Small Bites/Sips ,Chin Tuck,Check for Pocketing Treatment Plan Placement Recommendation after Discharge [facility] Facility Appropriate for Continued Therapy Yes Therapy Recommendations Continue to see 1x daily over course of hospital stay to monitor progress and further assess/treat deficits as needed. Dysphagia Goals Pt to participate in ongoing evaluation of swallow safety with diet advancement as appropriate. Pt will safely tolerate least restrictive diet to meet his nutrition and hydration needs
--- NOTE | 2022-05-17 12:25 | OT.IP.TRT ---
Current Diagnoses Cerebral infarction, unspecified (05/01/22) Occupational Therapy Treatment Note M2 OT-IP Current Condition Start: 05/07/22 12:13 Freq: Status: Active Protocol: Document 05/07/22 12:13 CGR (Rec: 05/07/22 12:37 CGR [id number]) Occupational Therapy Current Condition Current Condition Evaluation Date 05/07/22 Treatment Diagnosis generalized weakness, hx IV drug use, R CVA 2016 Diagnosis Onset Date 05/01/22 M3 OT- IP Subjective and Pain Start: 05/07/22 12:13 Freq: Status: Active Protocol: Document 05/17/22 13:10 CCC (Rec: 05/17/22 13:24 CCC [id number]) OT- Subjective Occupational Therapy Visit Type Type Treatment Note Visit Start Time 11:52 Visit Stop Time 12:25 Total Visit Minutes 33 Occupational Therapy Visit Comments Patient Comments Pt agreed to get up, but noted pt soiled and called in nursing aid to assist. Patient/Caregiver Goals TO get better. OT Pain Assessment Pain When Pain Assessed At Rest Pain Present Pain Present Denied Pain M4 OT- IP ADL's Start: 05/07/22 12:13 Freq: Status: Active Protocol: Document 05/17/22 13:10 [facility] (Rec: 05/17/22 13:24 [facility] [id number]) OT BNG-Vkro-Wyqlqjw General Evaluation Self-Feeding Ability Moderate Assistance Areas Needing Assistance Cutting Food,Opening Containers Comments OT Self-Feeding Comments Pt needing assist for set up of the tray, having the tray up higher and close to him. Pt able to use his left hand with large handled utensil with increased time due to weakness and lack of coordination to supinate his left hand when loading the food on his utensil. Pt able to grab the drink cup with left hand but at times tips the cup with a lid over. Encouraged pt to do self feeding as much as he can. Notified nursing that pt will need supervision for meals at this time. Pt needing cues to keep his head upright while eating . OT ADL-Dressing General Eval Lower Body Dressing Ability Total Assistance Areas Needing Assistance Underpants/Brief Comments OT Dressing Comments Pt able to assist to roll from ROULA to MODA to help roll in the bed for brief change. OT ADL-Toileting General Evaluation Toileting Ability Total Assistance Areas Needing Assistance Manage Clothing,Perform Perineal Hygiene Comments OT Toileting Comments Pt brief change completed while in bed. M5 OT- IP IADL's Start: 05/07/22 12:13 Freq: Status: Active Protocol: Document 05/07/22 12:13 CGR (Rec: 05/07/22 12:37 CGR [id number]) OT-Instrumental Activities of Daily Living Deficits IADL Deficits Identified Deficits Home Safety Awareness Awareness of Need for Assistance at Home Decreased Awareness Ability to Problem Solve Emergency Unable to Problem Solve Situations Medication Management Medication Management Comments Concerns about pt's ability to perform consistently Money Management Money Management Comments Concerns about pt's ability to perform consistently Meal Preparation Meal Preparation Comments Concerns about pt's ability to perform consistently Bit Welder Bit Welder Comments Concerns about pt's ability to perform consistently M6 OT- IP Functional Cognition Start: 05/07/22 12:13 Freq: Status: Active Protocol: Document 05/17/22 13:10 [facility] (Rec: 05/17/22 13:24 [facility] [id number]) Cognitive Factors Limiting Selfcare Function Cognitive Ability Level of Alertness Alert Attention Span Ability Capable of Focused Attention, Capable of Sustained Attention Ability to Follow Commands Able to Follow One Step Commands with Increased Time, Able to Follow One Step Commands with Repetition Cognitive Comments Cognitive Assessment Comments Pt able to follow simple commands for ADl and mobility needs. Pt able to initiate movements better. M7 OT- IP Mobility and Balance Start: 05/07/22 12:13 Freq: Status: Active Protocol: Document 05/17/22 13:10 [facility] (Rec: 05/17/22 13:24 [facility] [id number]) OT- Bed Mobility Assessment Supine to Sit Supine to Sit Assist Minimal Assistance,Moderate Assistance,1 Person Assistance OT-Transfer Assessment Sit to and From Stand Sit to and from Stand Maximum Assistance,2 Person Assistance Transfers Transfer Ability Maximum Assistance,2 Person Assistance Technique Transfer Destination Bed,Chair Devices Transfer Assistive Devices Gait Belt,Front Wheeled Walker Comments Mobility Comments MIN/MODA to help get pt upright from sidelying position. Pt MAX AX 2 to stand to FWW and needing assist to hold his RUE on the FWW and assist for his balance, guiding the FWW and for hand placement to help reach back to the recliner before sitting down. OT- Balance Assessment Sitting Balance and Reactions Static Sitting Balance Ability Fair Dynamic Sitting Balance Ability Poor Standing Balance and Reactions Static Standing Balance Ability Poor Dynamic Standing Balance Ability Poor M8 OT- IP Objective Assessments Start: 05/07/22 12:13 Freq: Status: Active Protocol: Document 05/07/22 12:13 CGR (Rec: 05/07/22 12:37 CGR [id number]) OT Gross Range of Motion Upper Extremity Range of Motion ROM Impairments AAROM WFL OT Strength Upper Extremity Strength Assessment Bilaterally Impaired Comments Strength Comments R weaker than L R grossly 2/5 L grossly 2+ to 3-/5 OT- Coordination Assessment Upper Extremity Finger to Nose Test Bilateral UE Impaired Finger Tapping Test Bilateral UE Impaired OT-Muscle Tone Assessment Muscle Tone WNL Yes OT Sensation Assessment Edema Edema Absent M9 OT- IP Assessment and Plan Start: 05/07/22 12:13 Freq: Status: Active Protocol: Document 05/17/22 13:10 CCC (Rec: 05/17/22 13:24 CCC [id number]) OT Summary Assessment and Plan Potential Rehabilitation Potential Fair Analytic Complexity at Evaluation High Summary OT Impairments Pain,Strength,Balance, Coordination,Functional Cognition,Functional Mobility, Self-Feeding,Grooming,Dressing ,Toileting,Bathing,Toilet Transfers,Shower Transfers, Activity Tolerance Progress Towards Goals Progressing Toward Goals,Slow Progress due to Medical Issues Assessment Summary Pt able to initiate his movement better during bed mobility and self feeding needs today. Pt will greatly benefit from skilled rehab. Goals Self-Feeding Goal Minimal Assistance Grooming Goal Minimal Assistance Dressing Goal Moderate Assistance Toileting Goal Moderate Assistance Bathing Goal Moderate Assistance Toilet Transfer Goal Minimal Assistance Shower Transfer Goal Minimal Assistance Days to Meet Goals 44 Frequency of Treatment Frequency Of Treatment Once a Day Treatment Plan OT Treatment Plan ADL Training,Functional Cognition Training,Functional Mobility,Neuromuscular Re- education,Therapeutic Exercises,Patient/Family Education,Discharge Planning Discharge Recommendations OT Discharge Recommendations SNF Rehab,LTAC Transportation Needs at Discharge Wheelchair/Cabulance
--- NOTE | 2022-05-17 12:43 | PC.NURSE ---
Pt awake,sitting in chair for meals. Pt encouraged to feed self. DESIRAE PICC intact/patent. Condition remains essentially unchanged Call light w/in reach, alarm on for pt safety. Continue w/plan of care.
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
--- NOTE | 2022-05-17 16:34 | PT.IPTN ---
Current Diagnoses Cerebral infarction, unspecified (05/01/22) Spinal stenosis, cervical region (05/01/22) Physical Therapy Treatment Note M2 PT-IP Current Condition Start: 05/07/22 09:18 Freq: NEEDED Status: Active Protocol: Document 05/14/22 13:57 SP (Rec: 05/14/22 17:21 SP [id number]) Physical Therapy Current Condition Current Condition Evaluation Date 05/07/22 Treatment Diagnosis metabolic encephalopathy; polysubstance withdrawal; impaired mobility Onset Date 04/30/22 M3 PT-IP Subjective Start: 05/07/22 09:18 Freq: NEEDED Status: Active Protocol: Document 05/17/22 16:34 NBM (Rec: 05/17/22 17:50 NBM [id number]) Subjective Physical Therapy Visit Type Type Treatment Note Visit Start Time 16:20 Visit Stop Time 16:34 Total Visit Minutes 14 Notes OT unavailable for co-treat at time of treatment session. Number of PROGRAMMER ANALYST CONSULTANT Visits 4 Physical Therapy Visit Comments Patient Comments Pt alert and softspoken but audible to understand responses this tx. Therapy Pain Assessment Pain When Pain Assessed At Rest Pain Present Pain Present Pain Reported Location R Shoulder Intensity 8 Scale Used Numeric (0 - 10) Pain Behaviors Wincing Pain Management Techniques Distraction,Modification of Treatment M4 PT-IP Mobility and Gait Start: 05/07/22 09:18 Freq: NEEDED Status: Active Protocol: Document 05/17/22 16:34 NBM (Rec: 05/17/22 17:50 NBM [id number]) PT-Transfer Assessment Comments Mobility Comments Pt in bed upon arrival and agreeable to PT. 1 PA available so treatment focus was on activity in bed. Minimal use of RUE and pt reported pain 8/10 in R shoulder. R shoulder PNF D1 flex/ext and PROM flex/ext, and R elbow PROM performed w/ pt reporting pain relief during and after. RUE tone and weakness noted. Ankle pumps x 10, B heel slides x 5. PROM gastroc stretch 2 x 60 duane - relief reported. Pt left in supine in bed w/ call light and all needs within reach. Gait Assessment Comments Gait Comments Not assessed due to 1PA available at time of treatment . M5 PT-IP Objective Assessments Start: 05/07/22 09:18 Freq: NEEDED Status: Active Protocol: Document 05/07/22 11:05 AW (Rec: 05/07/22 13:30 AW [id number]) Orientation Orientation/Cognition Level of Alertness Lethargic Orientation Name,Month,Place Safety Awareness Decreased Safety Awareness Gross Range of Motion Lower Extremity ROM Assessment Within Functional Limits Strength Lower Extremity Strength Assessment Bilaterally Impaired Comments Strength Comments R grossly 3-/5. L grossly 3+/5 Coordination Assessment Gross Coordination Gross Coordination Impaired Assessment Finger to Nose Test Activity Impossible Foot Tapping Test Minimal Impairment Coordination Comments Pt limited by BUE weakness with UE coordination testing. Sensation Assessment Sensation Gross Sensation WNL Muscle Tone Muscle Tone WNL Yes M6 PT-IP Treatment Start: 05/07/22 09:18 Freq: NEEDED Status: Active Protocol: Document 05/17/22 16:34 NBM (Rec: 05/17/22 17:50 [facility] [id number]) Physical Therapy Treatment Exercises Exercises Ankle Pumps,Heel Slides, Shoulder Flexion,Elbow Flexion /Extension Education Education Provided Safety M7 PT-IP Assessment and Plan Start: 05/07/22 09:18 Freq: NEEDED Status: Active Protocol: Document 05/17/22 16:34 NB (Rec: 05/17/22 17:50 [facility] [id number]) PT Summary Assessment and Plan Potential Rehabilitation Potential Fair Status of Condition at Evaluation Evolving Summary Impairments Strength,Balance,Coordination, Cognition,Bed Mobility, Transfers,Gait Progress Towards Goals Slow Progress due to Medical Issues,Slow Progress due to Activity Tolerance,Slow Progress - Other Assessment Summary Pt still requires Max A x2 w/ nearly all tasks due to weakness. Increased tone RUE and BLE noted. Pt reported R shoulder pain relief w/ PROM and LE muscle tightness relief w/ passive gastroc stretch. Pt is not safe to return home as he is unable to even get himself out of bed or transfer and does not have appropriate assistance and will need SNF or longterm placement. Goals Bed Mobility Goal Contact Guard Assistance Transfer Goal Standby Assistance,Front Wheeled Walker Gait Goal Standby Assistance,Front Wheel Walker Gait Distance 150 Other Goals up/down 4 steps with rails SBA - improve transfers and gait to SBA with 4WW Days to Meet Goals 10 Frequency of Treatment Frequency Of Treatment Once a Day Treatment Plan Physical Therapy Treatment Plan Bed Mobility Training,Transfer Training,Gait Training, Therapeutic Exercise,Balance Retraining,Discharge Planning, Hot or Cold Pack,Neuromuscular Re-ed,Coordination Retraining Other Recommendations and Next Treatment bed mob, sitting balance Focus activities, standing, transfers, gait using FWW if able. Precautions Other Precautions seizure precautions; falls risk Recommendations To Nursing Amount of Assist Needed 2 Person Assist Discharge Recommendations PT Discharge Recommendations SNF Rehab Equipment Needed for Home Before FWW Discharge Transportation Needs at Discharge Stretcher/Ambulance
--- NOTE | 2022-05-17 17:29 | P.PN_ITS ---
Subjective Subjective Date Patient Seen: 05/17/22 Time Patient Seen: 08:00 Interval history: He ate well today. Denied difficulty swallowing. No ptosis. No blurry vision. Does continue to have dysphonia. Feels that he is no stronger. He notes right arm and leg weakness worse than the right. He has pain down his entire right arm. He has neck pain. Exam Vital Signs (past 8 hours): - 05/17/22 12:29 05/17/22 12:42 05/17/22 12:10 Temperature 98.6 F Pulse Rate 110 H Respiratory Rate 16 18 17 Blood Pressure 118/82 Pulse Oximetry 96 96 Oxygen Delivery Method Room Air Oxygen Flow Rate 0 Oxygen Delivery Method Room Air Oxygen Flow Rate 0 Narrative Exam Narrative: GEN: no acute distress, chronically ill appearing and frail CV: regular rate and rhythm, no murmurs PULM: clear ABD: soft, nontender EXT: right upper extremity weakness of right shoulder, right hand at wrist and fingers. States he feels numbness in entire right arm. Right leg weakness right greater than left, right leg numbness distally. Reflexes intact bilaterally but mildly hyperreflexic at the patella. Cranial nerves 2-12 intact Objective Labs Result Diagrams: 05/12/22 05:15 05/17/22 07:03 Labs: Laboratory Results - last 24 hr 05/16/22 05/16/22 05/17/22 16:30 16:30 07:03 ESR 7 Sodium 137 Potassium 4.4 Chloride 97 L Carbon Dioxide 36 H BUN 16 Creatinine 0.50 L Estimated GFR > 60 BUN/Creatinine Ratio 32.0 H Glucose 104 Calcium 9.1 Total Bilirubin 0.5 AST 103 H ALT 146 H Alkaline Phosphatase 89 Total Protein 7.7 Albumin 4.0 Globulin 3.7 Albumin/Globulin Ratio 1.1 TSH 1.57 D [facility] Medical History Asthma Chronic back pain greater than 3 months duration Closed intertrochanteric fracture of left femur Depression Drug abuse, IV History of CVA (cerebrovascular accident) Surgical History History of hernia repair Family History Father Unknown family medical history Mother No problems noted. Grandmother Myocardial infarction Grandfather No problems noted. Social History household members: friend(s) Smoking Status: Current some day smoker alcohol intake: current Assessment & Plan Assessment & Plan narrative: 1. Weakness -does appear to have weakness in multiple extremities, worse in the right upper extremity -also has arm pain and neck pain -dysphonia also noted -MRI previously on admission showed no stroke -order repeat MRI head to rule out false negative, which again negative for acute stroke -MRI c-spine eval cord pathology, which showed multiple disc disease with ventr al cord flattening -appreciate ortho consult with no acute cord findings or emergent need for surgery -recommend outpatient neurosurgery follow up -achr ab to eval for myasthenia -check esr, crp, tsh negative -HIV negative -CK negative 2. Altered mental status/metabolic encephalopathy -mental status improved, possibly baseline -continue CIWA -continue close monitoring -continue PT/OT 3. Acute respiratory failure resolved -secondary to pneumonia completed abx ? 4.Hypertension -continue prn meds systolic > 160 5. Hyperlipidemia ?- continue atorvastatin 6. H/O Polysubstance abuse/IVDA - counseled -urine drug screen showed opiates and amphetamines ? Oral thrush -stop fluconazole, did get 7 days -LFTs were rising, possibly secondary to fluconazole ? DVT prophylaxis: lovenox Code status: full Disposition: pending for placement Time Spent With Patient Critical Care time: I spent a total of [] minutes of critical care time on this patient's care today; this time is exclusive of procedural time. Quality VTE Deep Vein Thrombosis/Pulmonary Embolism Present on Admission: No
[2022-05-17] MEDS: ATORVASTATIN 20 MG TABLET 40 MG PO (20:14)
[2022-05-18 06:00] VITALS: BP 130/90; PULSE 83; RESP 16; TEMP 36.7; O2SAT 94
[2022-05-18 07:05] LABS: Alanine Aminotransferase 165 IU/L (<50); Alkaline Phosphatase 93 U/L (38-126); Aspartate Aminotransferase 116 IU/L (17-59); BUN Creatinine Ratio 37.3 (6-22); Bilirubin Total 0.5 mg/dL (0.2-1.3); Blood Urea Nitrogen 19 mg/dL (9-20); Calcium 9.2 mg/dL (8.4-10.2); Carbon Dioxide 36 mmol/L (22-32); Chloride 100 mmol/L (98-107); Estimated Glomerular Filt Rate > 60 mL/min (>60); Globulin 3.9 g/dL (1.7-4.1); Glucose 101 mg/dL (80-110); HEMOLYSIS < 15 (0-50); Potassium 4.6 mmol/L (3.4-5.1); Sodium 138 mmol/L (137-145); Total Protein 7.9 g/dL (6.3-8.2)
[2022-05-18 09:25] VITALS: BP 119/70; PULSE 97; RESP 15; TEMP 36.9; O2SAT 93
[2022-05-18] MEDS: MULTIVITAMIN 1 TABLET 1 TAB PO (09:29)
[2022-05-18] MEDS: ASPIRIN EC 81 MG TABLET PO (09:29)
[2022-05-18] MEDS: NICOTINE 7 MG PATCH TOP (09:29)
[2022-05-18] MEDS: FOLIC ACID 1 MG TABLET PO (09:29)
[2022-05-18] MEDS: ENOXAPARIN 40 MG/0.4 ML SYRINGE SUBCUT (09:30)
[2022-05-18] MEDS: SODIUM CHLORIDE 0.9% FLUSH 10 ML IV (09:30)
[2022-05-18] MEDS: LORazepam 1 MG TABLET PO ×2 (09:44→19:40)
[2022-05-18] MEDS: DULOXETINE 30 MG CAPSULE PO (09:44)
--- NOTE | 2022-05-18 09:55 | SLP.IPNOTE ---
Attempted to see pt at 9:45. Pt was awake and reclined in bed when RAIL WALKER arrived. NSG was present and provided 2 oral medications in applesauce. Provided education regarding positioning and pt was repositioned for PO medications. He exhibited no overt signs or symptoms of aspiration. Pt continues to present with whispered speech. He stated he prefers to speak quietly and has not been working on speaking up. Pt refused PO trials at this time.
[2022-05-18 13:00] VITALS: BP 130/89; PULSE 116; RESP 13; TEMP 36.2; O2SAT 94
--- NOTE | 2022-05-18 13:34 | PT.IPTN ---
Current Diagnoses Cerebral infarction, unspecified (05/01/22) Spinal stenosis, cervical region (05/01/22) Physical Therapy Treatment Note M2 PT-IP Current Condition Start: 05/07/22 09:18 Freq: NEEDED Status: Active Protocol: Document 05/18/22 13:22 SP (Rec: 05/18/22 16:05 SP [id number]) Physical Therapy Current Condition Current Condition Evaluation Date 05/07/22 Treatment Diagnosis metabolic encephalopathy; polysubstance withdrawal; impaired mobility Onset Date 04/30/22 M3 PT-IP Subjective Start: 05/07/22 09:18 Freq: NEEDED Status: Active Protocol: Document 05/18/22 13:22 SP (Rec: 05/18/22 16:05 SP [id number]) Subjective Physical Therapy Visit Type Type Treatment Note Visit Start Time 13:22 Visit Stop Time 13:34 Total Visit Minutes 12 Notes Cotx with OT Number of CHECKING CLERK Visits 5 Physical Therapy Visit Comments Patient Comments Pt alert, agreeable to working with PT/OT, softspoken but audible to understand responses this tx. M4 PT-IP Mobility and Gait Start: 05/07/22 09:18 Freq: NEEDED Status: Active Protocol: Document 05/18/22 13:22 SP (Rec: 05/18/22 16:05 SP [id number]) PT-Bed Mobility Assessment Rolling Type of Rolling Log Rolling,Roll to Right Level of Assist Standby Assistance Supine to Sit Supine to Sit Moderate Assistance,1 Person Assistance Scooting Scooting to Edge of Bed Minimal Assistance PT-Transfer Assessment Sit to and From Stand Sit to and from Stand Maximum Assistance,2 Person Assistance,Use of Upper Extremities Equipment Transfer Assistive Device Gait Belt,Front Wheeled Walker Orthotic/Prosthetic Devices or Brace: No Transfers Transfer Destination Chair Transfer Technique Stand Step Pivot Transfer Ability Level of Assist Maximum Assistance,2 Person Assistance Comments Mobility Comments Complete LR SBA, R SL>sit Mod A w/ LUE push from bed, support trunk righting to sit. Scoot Min A for trunk stability from behind due to uses momentum and LUE on bed handle, CHECKING CLERK assisted RUE positioning at side lapR at times for stability proximal support. Instructed LAQ and marching x5 reps each BLE pre gait, Min-Mod A for trunk stability due to retro lean. Sit>stand Max A x2 BUE on FWW, SPT using FWW bed>chair, stand>sit Mod- Max A x2 w/hand over hand and cues for reaching back chair arm slow descend. SIt>stand after 2 min rest Max A x2, forward gait 13 ft w/ FWW Max A x2, support for trunk stability while assist FWW advancment and chair trailing. Max A x2 to descend in chair due to tiring and lacking strength. Gait Assessment Gait Gait Assistance Required: Maximum Assistance,2 Person Assist Distance (Feet) 13 Able to Maintain Weight Bearing Status Yes During Gait Assistive Devices Assistive Device Gait Belt,Front Wheeled Walker Orthotic/Prosthetic Devices or Brace: No Gait Deviations General Gait Pattern Ataxic,Decreased Stride Length ,Decreased Feet Clearance, Flexed Trunk,Lateral Trunk Lean,Narrow Based Gait,Step-to Gait Factors Limiting Gait Function Factors Limiting Gait Function Decreased Activity Tolerance, Decreased Strength,Difficulty Following Directions, Incoordination,Pain,Poor Balance,Poor Safety Awareness Comments Gait Comments Cued upright posture, facilitate Lean more L, pelvis underneath trunk, R quad facilitation/ extension to allow WB stability (unsteady buckle like at times), foot stride/ clearance R>L and FWW advancement sequencing. Occasional repositioning of RUE on FWW throughout gait needed x2. Stair Climbing Assessment Comments Stair Climbing Comments Not assessed. PT-Balance Assessment Sitting Balance and Reactions Static Sitting Balance Ability Fair Dynamic Sitting Balance Ability Poor Standing Balance and Reactions Static Standing Balance Ability Poor Dynamic Standing Balance Ability Poor Device Used FWW M5 PT-IP Objective Assessments Start: 05/07/22 09:18 Freq: NEEDED Status: Active Protocol: Document 05/07/22 11:05 AW (Rec: 05/07/22 13:30 AW [id number]) Orientation Orientation/Cognition Level of Alertness Lethargic Orientation Name,Month,Place Safety Awareness Decreased Safety Awareness Gross Range of Motion Lower Extremity ROM Assessment Within Functional Limits Strength Lower Extremity Strength Assessment Bilaterally Impaired Comments Strength Comments R grossly 3-/5. L grossly 3+/5 Coordination Assessment Gross Coordination Gross Coordination Impaired Assessment Finger to Nose Test Activity Impossible Foot Tapping Test Minimal Impairment Coordination Comments Pt limited by BUE weakness with UE coordination testing. Sensation Assessment Sensation Gross Sensation WNL Muscle Tone Muscle Tone WNL Yes M6 PT-IP Treatment Start: 05/07/22 09:18 Freq: NEEDED Status: Active Protocol: Document 05/18/22 13:22 SP (Rec: 05/18/22 16:05 SP [id number]) Physical Therapy Treatment Exercises Exercises Seated Knee Flexion/Extension Education Education Provided Safety Other Treatments Other Treatment Performed seated marching at EOB Min- Mod A trunk support M7 PT-IP Assessment and Plan Start: 05/07/22 09:18 Freq: NEEDED Status: Active Protocol: Document 05/18/22 13:22 SP (Rec: 05/18/22 16:05 SP [id number]) PT Summary Assessment and Plan Potential Rehabilitation Potential Fair Status of Condition at Evaluation Evolving Summary Impairments Strength,Balance,Coordination, Cognition,Bed Mobility, Transfers,Gait Progress Towards Goals Slow Progress due to Medical Issues,Slow Progress due to Activity Tolerance,Slow Progress - Other Assessment Summary Pt requires Mod A bed mob sup> Sit, Max A STS, Stand pivot transfer and gait w/ FWW. Pt would benefit from continued skilled therapy, recommending SNF and probable LTAC for strength toward functional mobility. Pt does not have good upright trunk support without assist, therefore not good candidate for w/c transfer so recommending BLS/ stretcher. Goals Bed Mobility Goal Contact Guard Assistance Transfer Goal Standby Assistance,Front Wheeled Walker Gait Goal Standby Assistance,Front Wheel Walker Gait Distance 150 Other Goals up/down 4 steps with rails SBA - improve transfers and gait to SBA with 4WW Days to Meet Goals 10 Frequency of Treatment Frequency Of Treatment Once a Day Treatment Plan Physical Therapy Treatment Plan Bed Mobility Training,Transfer Training,Gait Training, Therapeutic Exercise,Balance Retraining,Discharge Planning, Hot or Cold Pack,Neuromuscular Re-ed,Coordination Retraining Other Recommendations and Next Treatment bed mob, sitting balance Focus activities, standing, transfers, gait using FWW chair follow. Precautions Other Precautions seizure precautions; falls risk Recommendations To Nursing Amount of Assist Needed 2 Person Assist Discharge Recommendations PT Discharge Recommendations SNF Rehab,LTAC Equipment Needed for Home Before FWW Discharge Transportation Needs at Discharge Stretcher/Ambulance
--- NOTE | 2022-05-18 13:52 | OT.IP.TRT ---
Current Diagnoses Cerebral infarction, unspecified (05/01/22) Spinal stenosis, cervical region (05/01/22) Occupational Therapy Treatment Note M2 OT-IP Current Condition Start: 05/07/22 12:13 Freq: Status: Active Protocol: Document 05/07/22 12:13 CGR (Rec: 05/07/22 12:37 CGR [id number]) Occupational Therapy Current Condition Current Condition Evaluation Date 05/07/22 Treatment Diagnosis generalized weakness, hx IV drug use, R CVA 2016 Diagnosis Onset Date 05/01/22 M3 OT- IP Subjective and Pain Start: 05/07/22 12:13 Freq: Status: Active Protocol: Document 05/18/22 13:59 CCC (Rec: 05/18/22 14:07 [facility] [id number]) OT- Subjective Occupational Therapy Visit Type Type Treatment Note Visit Start Time 13:23 Visit Stop Time 13:52 Total Visit Minutes 29 Occupational Therapy Visit Comments Patient Comments Pt agreed to get up with HONING MACHINE OPERATOR TOOL and OT. Patient/Caregiver Goals TO get better. OT Pain Assessment Pain When Pain Assessed At Rest Pain Present Pain Present Pain Reported Location Neck Pain Behaviors Facial Grimacing M4 OT- IP ADL's Start: 05/07/22 12:13 Freq: Status: Active Protocol: Document 05/18/22 13:59 [facility] (Rec: 05/18/22 14:07 [facility] [id number]) OT [id number] Comments OT Self-Feeding Comments NOt at meal time. OT ADL-Grooming Comments OT Grooming Comments NOt performed. OT ADL-Oral Care Comments Oral Care Comments Not performed. OT ADL-Dressing General Eval Lower Body Dressing Ability Total Assistance Areas Needing Assistance Underpants/Brief Comments OT Dressing Comments MAX A x2 to stand and then OT able to stand pt with MAX AX 1 while nursing aid assisted to get his brief on. OT ADL-Bathing Comments OT Bathing Comments Sponge bath more appropriate at this time. M5 OT- IP IADL's Start: 05/07/22 12:13 Freq: Status: Active Protocol: Document 05/07/22 12:13 CGR (Rec: 05/07/22 12:37 CGR [id number]) OT-Instrumental Activities of Daily Living Deficits IADL Deficits Identified Deficits Home Safety Awareness Awareness of Need for Assistance at Home Decreased Awareness Ability to Problem Solve Emergency Unable to Problem Solve Situations Medication Management Medication Management Comments Concerns about pt's ability to perform consistently Money Management Money Management Comments Concerns about pt's ability to perform consistently Meal Preparation Meal Preparation Comments Concerns about pt's ability to perform consistently Tin Stacker Tin Stacker Comments Concerns about pt's ability to perform consistently M6 OT- IP Functional Cognition Start: 05/07/22 12:13 Freq: Status: Active Protocol: Document 05/18/22 13:59 [facility] (Rec: 05/18/22 14:07 [facility] [id number]) Cognitive Factors Limiting Selfcare Function Cognitive Ability Level of Alertness Alert Attention Span Ability Capable of Focused Attention, Capable of Sustained Attention Ability to Follow Commands Able to Follow One Step Commands with Increased Time, Able to Follow One Step Commands with Repetition Cognitive Comments Cognitive Assessment Comments Pt able to follow simple commands for ADl and mobility needs. Pt able to initiate movements better. Pt having increased voice volume today. M7 OT- IP Mobility and Balance Start: 05/07/22 12:13 Freq: Status: Active Protocol: Document 05/18/22 13:59 [facility] (Rec: 05/18/22 14:07 [facility] [id number]) OT- Bed Mobility Assessment Supine to Sit Supine to Sit Assist Moderate Assistance,1 Person Assistance OT-Transfer Assessment Sit to and From Stand Sit to and from Stand Maximum Assistance,2 Person Assistance Transfers Transfer Ability Maximum Assistance,2 Person Assistance Technique Transfer Destination Bed,Chair Devices Transfer Assistive Devices Gait Belt,Front Wheeled Walker Comments Mobility Comments MODA to get upright from sidelying. MAX AX 2 to stand to FWW and assist to hold his right hand on the FWW , balance, guide the FWW, and cues for movements. Pt doing a better just of keeping his feet apart and not crossing his legs over when he was able to walk a few steps today with HONING MACHINE OPERATOR TOOL and OT. OT- Balance Assessment Sitting Balance and Reactions Static Sitting Balance Ability Fair Dynamic Sitting Balance Ability Poor Standing Balance and Reactions Static Standing Balance Ability Poor Dynamic Standing Balance Ability Poor Comments Other Balance Tests/Deviations/Treatment CGA to SBA for sitting balance : once at the edge of the bed. M8 OT- IP Objective Assessments Start: 05/07/22 12:13 Freq: Status: Active Protocol: Document 05/07/22 12:13 CGR (Rec: 05/07/22 12:37 CGR [id number]) OT Gross Range of Motion Upper Extremity Range of Motion ROM Impairments AAROM WFL OT Strength Upper Extremity Strength Assessment Bilaterally Impaired Comments Strength Comments R weaker than L R grossly 2/5 L grossly 2+ to 3-/5 OT- Coordination Assessment Upper Extremity Finger to Nose Test Bilateral UE Impaired Finger Tapping Test Bilateral UE Impaired OT-Muscle Tone Assessment Muscle Tone WNL Yes OT Sensation Assessment Edema Edema Absent M9 OT- IP Assessment and Plan Start: 05/07/22 12:13 Freq: Status: Active Protocol: Document 05/18/22 13:59 [facility] (Rec: 05/18/22 14:07 [facility] [id number]) OT Summary Assessment and Plan Potential Rehabilitation Potential Fair Analytic Complexity at Evaluation High Summary OT Impairments Pain,Strength,Balance, Coordination,Functional Cognition,Functional Mobility, Self-Feeding,Grooming,Dressing ,Toileting,Bathing,Toilet Transfers,Shower Transfers, Activity Tolerance Progress Towards Goals Progressing Toward Goals,Slow Progress due to Activity Tolerance Assessment Summary Pt able to take some steps today and not crossing his legs over each other better today. Pt still needing extensive two person assist for all needs. Able to have pt do some SROM to his right hand/fingers and applied lotion. Also able to do gentle mobs on his wrist to increased ROM to increase ease for weight bearing while seated on the edge of the bed. Pt will benefit from skilled rehab. Goals Self-Feeding Goal Minimal Assistance Grooming Goal Minimal Assistance Dressing Goal Moderate Assistance Toileting Goal Moderate Assistance Bathing Goal Moderate Assistance Toilet Transfer Goal Minimal Assistance Shower Transfer Goal Minimal Assistance Days to Meet Goals 43 Frequency of Treatment Frequency Of Treatment Once a Day Treatment Plan OT Treatment Plan ADL Training,Functional Cognition Training,Functional Mobility,Neuromuscular Re- education,Therapeutic Exercises,Patient/Family Education,Discharge Planning Discharge Recommendations OT Discharge Recommendations SNF Rehab,LTAC Transportation Needs at Discharge Wheelchair/Cabulance
--- NOTE | 2022-05-18 14:35 | CM.DPC ---
DCP Cont: [employer] contacted [facility] to inquire about the potential for getting a temporary geriatric social worker to come out prior to May 29 to do the placement assessment. GISSELLE directed to [facility] office in [place]. Left a message to call back to inquire about this. [employer]UM[employer] to continue to work on this case. Roya More RN/GISSELLE
--- NOTE | 2022-05-18 15:02 | P.PN_ITS ---
Subjective Subjective Date Patient Seen: 05/18/22 Interval history: 62-year-old gentleman with underlying substance dependence, prior stroke with right-sided weakness, depression, chronic back pain, and asthma who is presently hospital day 17 initially admitted with concern for worsening stroke symptoms and altered mental status. patient is awaiting appropriate placement. Patient reports he has had chronic neck and arm pain. He states typically his neck with her or his arm will hurt but not both. He states that the pain he is having is not inconsistent with his baseline pain. He also notes that since his stroke he has had right-sided weakness. He notes that this is not any worse currently than baseline. He tells me he is speaking with his voice at a whisper level by choice. However, he is unable to adequately raise his voice to a higher volume. He does admit to being depressed. States he typically uses Zoloft. He is not certain whether it has been helpful for him. Exam Vital Signs (past 8 hours): - 05/18/22 13:00 Temperature 97.1 F L Pulse Rate 116 H Respiratory Rate 13 Blood Pressure 130/89 Pulse Oximetry 94 Oxygen Flow Rate 0 Oxygen Delivery Method Room Air Oxygen Flow Rate 0 Narrative Exam Narrative: GEN: Middle-aged male,Alert and oriented x 3, speaks with a very soft voice which is difficult to understand, NAD HEENT:NC, Face symmetric CHEST: Respiratory excursions symmetric, CTAB CV: RRR, no M/R/G ABD: Soft, NT/ND, BT present in all 4 quadrants, no organomegaly or masses EXTR: warm, well perfused, no C/C/E SKIN: warm and dry, no rash NEURO: Alert and oriented x 3, diminished back digger operator strength on the right, decreased strength to the right upper extremity Objective Labs Result Diagrams: 05/12/22 05:15 05/18/22 06:30 Labs: Laboratory Results - last 24 hr 05/18/22 06:30 Sodium 138 Potassium 4.6 Chloride 100 Carbon Dioxide 36 H BUN 19 Creatinine 0.51 L Estimated GFR > 60 BUN/Creatinine Ratio 37.3 H Glucose 101 Calcium 9.2 Total Bilirubin 0.5 AST 116 H ALT 165 H Alkaline Phosphatase 93 Total Protein 7.9 Albumin 4.0 Globulin 3.9 Albumin/Globulin Ratio 1.0 PFSH Medical History Asthma Chronic back pain greater than 3 months duration Closed intertrochanteric fracture of left femur Depression Drug abuse, IV History of CVA (cerebrovascular accident) Surgical History History of hernia repair Family History Father Unknown family medical history Mother No problems noted. Grandmother Myocardial infarction Grandfather No problems noted. Social History household members: friend(s) Smoking Status: Current some day smoker alcohol intake: current Assessment & Plan Assessment & Plan narrative: 1. Weakness Patient appears to be chronically debilitated. No evidence of new stroke on 2 different brain MRIs. C-spine MRI did reveal some chronic pathology but no acute cord compression. Orthopedic surgery consulted and recommended outpatient follow-up with Neurosurgery. Acetylcholine antibodies have been sent to evaluate for underlying myasthenia. There does appear to be some volitional co mponent to his symptoms. He does admit to depression. He also admits to chronic pain. Will discontinue Zoloft and trial Cymbalta. 2. Altered mental status / metabolic encephalopathy Patient appears to be at baseline. No evidence for withdrawal presently. He is working with therapies on a daily basis. 3. Acute respiratory failure new line secondary to pneumonia. This has been treated and resolved. 4. Hypertension Presently normotensive. 5. Hyperlipidemia Continue atorvastatin 6. Polysubstance dependence Although patient was intoxicated on admission, he has been hospitalized for 16 days. There was evident concern early on that people were bringing controlled substances into the hospital. However, he has had restricted visitation since that time. 7. Oral thrush Patient received 7 days of oral fluconazole. LFTs were rising and it was subsequently discontinued. 8. Prior stroke with residual right-sided weakness Patient remains on atorvastatin 40 mg, aspirin 81 mg. Code status Full prophylaxis On Lovenox disposition Pending placement Time Spent With Patient Critical Care time: I spent a total of [] minutes of critical care time on this patient's care today; this time is exclusive of procedural time. Quality VTE Deep Vein Thrombosis/Pulmonary Embolism Present on Admission: No
[2022-05-18 17:05] LABS: ANA Screen, IFA Negative (.)
[2022-05-18] MEDS: TRAMADOL 50 MG TABLET PO (18:48)
[2022-05-18 19:45] VITALS: BP 129/76; PULSE 86; RESP 16; TEMP 36.3; O2SAT 95
[2022-05-18 20:30] VITALS: BP 129/76; PULSE 80; RESP 16
[2022-05-18] MEDS: ATORVASTATIN 20 MG TABLET 40 MG PO (21:34)
[2022-05-19] MEDS: TRAMADOL 50 MG TABLET PO ×3 (02:21→18:18)
[2022-05-19 02:25] VITALS: BP 124/83; PULSE 91; RESP 16; TEMP 36.5; O2SAT 94
--- NOTE | 2022-05-19 05:28 | PC.NURSE ---
Patient has been resting in bed this shift. Up a few times during the night for brief change and repositioning when he cant get comfortable. Anxious at the beginning of the shift with a CIWA of 4, which ativan was helpful. Patient has been A&O and cooperative.
[2022-05-19] MEDS: SODIUM CHLORIDE 0.9% FLUSH 10 ML IV (06:40)
[2022-05-19 07:03] LABS: Add Manual Diff / Slide Review NO; Basophils Absolute Auto 0 /uL (0-100); Basophils Percent Auto 0.1 % (0-2); Eosinophils Absolute Auto 100 /uL (0-450); Eosinophils Percent Auto 1.4 % (2-4); Hematocrit 39.6 % (41-53); Hemoglobin 12.6 g/dL (13.5-17.5); Lymphocytes Absolute Auto 2200 /uL (1100-4500); Lymphocytes Percent Auto 23.3 % (25-40); Mean Corpuscular HGB Conc 31.9 % (30-36); Mean Corpuscular Hemoglobin 22.2 PG (26-34); Mean Corpuscular Volume 69.5 fL (80-100); Monocytes Absolute Auto 900 /uL (0-900); Monocytes Percent Auto 9.2 % (3-14); Neutrophils Absolute Auto 6300 /uL (1500-7000); Platelet Count 368 X10^3/uL (150-400); White Blood Cell Count 9.5 X10^3/uL (4.5-11.0)
[2022-05-19 07:07] LABS: Alanine Aminotransferase 168 IU/L (<50); Albumin 4.1 g/dL (3.5-5.0); Albumin Globulin Ratio 1.1 (1.0-2.8); Alkaline Phosphatase 90 U/L (38-126); Aspartate Aminotransferase 110 IU/L (17-59); BUN Creatinine Ratio 46.9 (6-22); Bilirubin Total 0.6 mg/dL (0.2-1.3); Blood Urea Nitrogen 23 mg/dL (9-20); Calcium 9.1 mg/dL (8.4-10.2); Carbon Dioxide 31 mmol/L (22-32); Chloride 100 mmol/L (98-107); Estimated Glomerular Filt Rate > 60 mL/min (>60); Globulin 3.9 g/dL (1.7-4.1); Glucose 91 mg/dL (80-110); HEMOLYSIS < 15 (0-50); Potassium 4.2 mmol/L (3.4-5.1); Sodium 136 mmol/L (137-145)
[2022-05-19 08:00] VITALS: BP 116/86; PULSE 88; RESP 17; TEMP 36.4; O2SAT 95
[2022-05-19] MEDS: NICOTINE 7 MG PATCH TOP (09:52)
[2022-05-19] MEDS: ENOXAPARIN 40 MG/0.4 ML SYRINGE SUBCUT (09:52)
[2022-05-19] MEDS: MULTIVITAMIN 1 TABLET 1 TAB PO (09:53)
[2022-05-19] MEDS: DULOXETINE 30 MG CAPSULE PO (09:53)
[2022-05-19] MEDS: ASPIRIN EC 81 MG TABLET PO (09:53)
[2022-05-19] MEDS: FOLIC ACID 1 MG TABLET PO (09:53)
[2022-05-19] MEDS: LORazepam 1 MG TABLET PO ×3 (10:00→18:18)
--- NOTE | 2022-05-19 12:03 | OT.IP.TRT ---
Current Diagnoses Cerebral infarction, unspecified (05/01/22) Spinal stenosis, cervical region (05/01/22) Occupational Therapy Treatment Note M2 OT-IP Current Condition Start: 05/07/22 12:13 Freq: Status: Active Protocol: Document 05/07/22 12:13 CGR (Rec: 05/07/22 12:37 CGR [id number]) Occupational Therapy Current Condition Current Condition Evaluation Date 05/07/22 Treatment Diagnosis generalized weakness, hx IV drug use, R CVA 2016 Diagnosis Onset Date 05/01/22 M3 OT- IP Subjective and Pain Start: 05/07/22 12:13 Freq: Status: Active Protocol: Document 05/19/22 12:12 CCC (Rec: 05/19/22 12:28 [facility] [id number]) OT- Subjective Occupational Therapy Visit Type Type Treatment Note Visit Start Time 11:40 Visit Stop Time 12:03 Total Visit Minutes 23 Occupational Therapy Visit Comments Patient Comments COtxt with WHITE SHOE RAGGER for part of the session due to complex need for assist for mobility when on his feet. Patient/Caregiver Goals TO get better. OT Pain Assessment Pain When Pain Assessed At Rest Pain Present Pain Present Pain Reported Location Neck Intensity 8 Scale Used Numeric (0 - 10) M4 OT- IP ADL's Start: 05/07/22 12:13 Freq: Status: Active Protocol: Document 05/19/22 12:12 [facility] (Rec: 05/19/22 12:28 [facility] [id number]) OT [id number] Comments OT Self-Feeding Comments Pt able to use large handled utensils to eat after set-up. Noted pt sitting uprigth better the a higher recliner changed out. OT ADL-Grooming General Evaluation Grooming Ability Maximum Assistance Areas Needing Assistance Combing/Brushing Hair Comments OT Grooming Comments Pt needing MAXA for completeness to brush his hand , pt able to use his left hand to assist initially. OT ADL-Oral Care Comments Oral Care Comments Pt states did prior OT ADL-Dressing General Eval Lower Body Dressing Ability Maximum Assistance Areas Needing Assistance Socks OT ADL-Toileting Comments OT Toileting Comments Not performed. OT ADL-Bathing Comments OT Bathing Comments Pending on progress to look at doing a shower with pt. M5 OT- IP IADL's Start: 05/07/22 12:13 Freq: Status: Active Protocol: Document 05/07/22 12:13 CGR (Rec: 05/07/22 12:37 CGR [id number]) OT-Instrumental Activities of Daily Living Deficits IADL Deficits Identified Deficits Home Safety Awareness Awareness of Need for Assistance at Home Decreased Awareness Ability to Problem Solve Emergency Unable to Problem Solve Situations Medication Management Medication Management Comments Concerns about pt's ability to perform consistently Money Management Money Management Comments Concerns about pt's ability to perform consistently Meal Preparation Meal Preparation Comments Concerns about pt's ability to perform consistently Fish Hatchery Inspector Fish Hatchery Inspector Comments Concerns about pt's ability to perform consistently M6 OT- IP Functional Cognition Start: 05/07/22 12:13 Freq: Status: Active Protocol: Document 05/19/22 12:12 [facility] (Rec: 05/19/22 12:28 [facility] [id number]) Cognitive Factors Limiting Selfcare Function Cognitive Comments Cognitive Assessment Comments Pt able to say what he needs to do while getting up but needign cues to completeness and reminders to be sure to get his feet back before standing. M7 OT- IP Mobility and Balance Start: 05/07/22 12:13 Freq: Status: Active Protocol: Document 05/19/22 12:12 [facility] (Rec: 05/19/22 12:28 [facility] [id number]) OT- Bed Mobility Assessment Supine to Sit Supine to Sit Assist Moderate Assistance,1 Person Assistance OT-Transfer Assessment Sit to and From Stand Sit to and from Stand Maximum Assistance,2 Person Assistance Transfers Transfer Ability Maximum Assistance,2 Person Assistance Technique Transfer Destination Bed,Chair Devices Transfer Assistive Devices Gait Belt,Front Wheeled Walker Comments Mobility Comments MODA to get his trunk upright but today closer to being able to do , however not able to get his right elbow and hand to extend on the bed to push to weight bear at this time. MAX AX 2 to stand, assist for balance, guiding the FWW, and cues for his feet placement and posture. Pt able to hold the FWW better with right hand at times, but still needign assist form WHITE SHOE RAGGER to hold his hand on the FWW. OT- Balance Assessment Sitting Balance and Reactions Static Sitting Balance Ability Fair Dynamic Sitting Balance Ability Poor Standing Balance and Reactions Static Standing Balance Ability Poor Dynamic Standing Balance Ability Poor Comments Other Balance Tests/Deviations/Treatment CGA to SBA for sitting balance : once at the edge of the bed. Pt still leans to the left while seated on the bed. Pt still has decreased awareness of his midline. M8 OT- IP Objective Assessments Start: 05/07/22 12:13 Freq: Status: Active Protocol: Document 05/07/22 12:13 CGR (Rec: 05/07/22 12:37 CGR [id number]) OT Gross Range of Motion Upper Extremity Range of Motion ROM Impairments AAROM WFL OT Strength Upper Extremity Strength Assessment Bilaterally Impaired Comments Strength Comments R weaker than L R grossly 2/5 L grossly 2+ to 3-/5 OT- Coordination Assessment Upper Extremity Finger to Nose Test Bilateral UE Impaired Finger Tapping Test Bilateral UE Impaired OT-Muscle Tone Assessment Muscle Tone WNL Yes OT Sensation Assessment Edema Edema Absent M9 OT- IP Assessment and Plan Start: 05/07/22 12:13 Freq: Status: Active Protocol: Document 05/19/22 12:12 CCC (Rec: 05/19/22 12:28 CCC [id number]) OT Summary Assessment and Plan Potential Rehabilitation Potential Fair Analytic Complexity at Evaluation High Summary OT Impairments Pain,Strength,Balance, Coordination,Functional Cognition,Functional Mobility, Self-Feeding,Grooming,Dressing ,Toileting,Bathing,Toilet Transfers,Shower Transfers, Activity Tolerance Progress Towards Goals Progressing Toward Goals Assessment Summary Pt able to take 3 short walks with FWW and MAX AX 2 with assist for right hand placement, balance, guiding the FWW, vc for feet placement Goals Self-Feeding Goal Standby Assistance Grooming Goal Minimal Assistance Dressing Goal Moderate Assistance Toileting Goal Moderate Assistance Bathing Goal Moderate Assistance Toilet Transfer Goal Minimal Assistance Shower Transfer Goal Minimal Assistance Days to Meet Goals 42 Frequency of Treatment Frequency Of Treatment Once a Day Treatment Plan OT Treatment Plan ADL Training,Functional Cognition Training,Functional Mobility,Neuromuscular Re- education,Therapeutic Exercises,Patient/Family Education,Discharge Planning Discharge Recommendations OT Discharge Recommendations SNF Rehab,LTAC Transportation Needs at Discharge Wheelchair/Cabulance/ Stretcher
--- NOTE | 2022-05-19 12:03 | PT.IPTN ---
Current Diagnoses Cerebral infarction, unspecified (05/01/22) Spinal stenosis, cervical region (05/01/22) Physical Therapy Treatment Note M2 PT-IP Current Condition Start: 05/07/22 09:18 Freq: NEEDED Status: Active Protocol: Document 05/18/22 13:22 SP (Rec: 05/18/22 16:05 SP [id number]) Physical Therapy Current Condition Current Condition Evaluation Date 05/07/22 Treatment Diagnosis metabolic encephalopathy; polysubstance withdrawal; impaired mobility Onset Date 04/30/22 M3 PT-IP Subjective Start: 05/07/22 09:18 Freq: NEEDED Status: Active Protocol: Document 05/19/22 12:03 NBM (Rec: 05/19/22 13:32 [facility] [id number]) Subjective Physical Therapy Visit Type Type Treatment Note Visit Start Time 11:45 Visit Stop Time 12:03 Total Visit Minutes 18 Notes Cotx with OT Number of SOFTWARE FIRMWARE ENGINEER Visits 6 Physical Therapy Visit Comments Patient Comments Pt alert, agreeable to working with PT/OT. Therapy Pain Assessment Pain When Pain Assessed At Rest Pain Present Pain Present Pain Reported Location Neck Intensity 8 Scale Used Numeric (0 - 10) Pain Management Techniques Re-positioning M4 PT-IP Mobility and Gait Start: 05/07/22 09:18 Freq: NEEDED Status: Active Protocol: Document 05/19/22 12:03 NBM (Rec: 05/19/22 13:32 [facility] [id number]) PT-Bed Mobility Assessment Rolling Type of Rolling Log Rolling,Roll to Right Level of Assist Standby Assistance Supine to Sit Supine to Sit Moderate Assistance,1 Person Assistance Scooting Scooting to Edge of Bed Minimal Assistance Scooting Up and Down in Bed Dependent PT-Transfer Assessment Sit to and From Stand Sit to and from Stand Maximum Assistance,2 Person Assistance,Use of Upper Extremities Equipment Transfer Assistive Device Gait Belt,Front Wheeled Walker Orthotic/Prosthetic Devices or Brace: No Transfers Transfer Destination Chair Transfer Technique Stand Step Pivot Transfer Ability Level of Assist Maximum Assistance,2 Person Assistance Comments Mobility Comments Pt in bed upon arrival w/ OT and agreeable to PT/OT cotreatment. Complete LR SBA, R SL>sit Mod A w/ LUE push from bed, support trunk righting to sit. Scoot EOB Min A w/ LUE on bed handle, SOFTWARE FIRMWARE ENGINEER assisted RUE positioning at side lap R at times for stability proximal support. Sit>stand w/ FWW Max A 2PA - cueing for scooting, foot and hand placement. SPT using FWW bed>chair, stand>sit Mod- Max A x2 PA w/hand over hand and cues for reaching back and controlled descend. Seated LAQ x 5 Ken[place], Toe/Heel raise x 10 kenyon. Sit>stand Max A, 2PA w/ FWW. Pt then ambulated ~11ft x 3 w/FWW and chair follow, Max A 2PA- cues for upright posture, foot placement, hand over hand for RUE on FWW, and support for trunk stability while assist FWW advancment. Max A x2 to descend in chair due to tiring and lacking strength. Seated ther ex performed during seated breaks : Seated heel slides x 5 Kenyon. Seated marching x 10 Kenyon. Pt left in chair on waffle cushion w/ kenyon pillow support for upright trunk, alarm, call light and all needs within reach. Gait Assessment Gait Gait Assistance Required: Maximum Assistance,2 Person Assist Distance (Feet) 33 Able to Maintain Weight Bearing Status Yes During Gait Assistive Devices Assistive Device Gait Belt,Front Wheeled Walker Orthotic/Prosthetic Devices or Brace: No Gait Deviations General Gait Pattern Ataxic,Decreased Stride Length ,Decreased Feet Clearance, Flexed Trunk,Lateral Trunk Lean,Narrow Based Gait,Step-to Gait Factors Limiting Gait Function Factors Limiting Gait Function Decreased Activity Tolerance, Decreased Strength,Difficulty Following Directions, Incoordination,Pain,Poor Balance,Poor Safety Awareness Comments Gait Comments 3 x 11 ft w/ chair follow. Cued upright posture, foot placement and FWW advancement sequening. Facilitate L lean. Occasional repositioning of RUE on FWW throughout gait. Stair Climbing Assessment Comments Stair Climbing Comments Not assessed. PT-Balance Assessment Sitting Balance and Reactions Static Sitting Balance Ability Fair Dynamic Sitting Balance Ability Poor Standing Balance and Reactions Static Standing Balance Ability Poor Dynamic Standing Balance Ability Poor Device Used FWW M5 PT-IP Objective Assessments Start: 05/07/22 09:18 Freq: NEEDED Status: Active Protocol: Document 05/07/22 11:05 AW (Rec: 05/07/22 13:30 AW [id number]) Orientation Orientation/Cognition Level of Alertness Lethargic Orientation Name,Month,Place Safety Awareness Decreased Safety Awareness Gross Range of Motion Lower Extremity ROM Assessment Within Functional Limits Strength Lower Extremity Strength Assessment Bilaterally Impaired Comments Strength Comments R grossly 3-/5. L grossly 3+/5 Coordination Assessment Gross Coordination Gross Coordination Impaired Assessment Finger to Nose Test Activity Impossible Foot Tapping Test Minimal Impairment Coordination Comments Pt limited by BUE weakness with UE coordination testing. Sensation Assessment Sensation Gross Sensation WNL Muscle Tone Muscle Tone WNL Yes M6 PT-IP Treatment Start: 05/07/22 09:18 Freq: NEEDED Status: Active Protocol: Document 05/19/22 12:03 [facility] (Rec: 05/19/22 13:32 [facility] [id number]) Physical Therapy Treatment Exercises Exercises Ankle Pumps,Heel Slides,Seated Knee Flexion/Extension Education Education Provided Safety Other Treatments Other Treatment Performed seated marching in chair - vc for control w/ eccentric movement. M7 PT-IP Assessment and Plan Start: 05/07/22 09:18 Freq: NEEDED Status: Active Protocol: Document 05/19/22 12:03 NB (Rec: 05/19/22 13:32 [facility] [id number]) PT Summary Assessment and Plan Potential Rehabilitation Potential Fair Status of Condition at Evaluation Evolving Summary Impairments Strength,Balance,Coordination, Cognition,Bed Mobility, Transfers,Gait Progress Towards Goals Slow Progress due to Medical Issues,Slow Progress due to Activity Tolerance,Slow Progress - Other Assessment Summary Pt requires Mod A bed mob sup> Sit, and Max A Sit<>Stand, Stand pivot transfer and gait w/ FWW w/ chair follow. Pt is challenged with orientation to midline and needs cues for L lateral trunk lean correction. Pt demonstrates improved activity tolerance w/ total ambulation ~33 ft this treatment. Pt would benefit from continued skilled therapy , recommending SNF and probable LTAC for strength toward functional mobility. Pt does not have consistent upright trunk support without assist, therefore not good candidate for w/c transfer so recommending BLS/ stretcher. Goals Bed Mobility Goal Contact Guard Assistance Transfer Goal Standby Assistance,Front Wheeled Walker Gait Goal Standby Assistance,Front Wheel Walker Gait Distance 150 Other Goals up/down 4 steps with rails SBA - improve transfers and gait to SBA with 4WW Days to Meet Goals 10 Frequency of Treatment Frequency Of Treatment Once a Day Treatment Plan Physical Therapy Treatment Plan Bed Mobility Training,Transfer Training,Gait Training, Therapeutic Exercise,Balance Retraining,Discharge Planning, Hot or Cold Pack,Neuromuscular Re-ed,Coordination Retraining Other Recommendations and Next Treatment bed mob, sitting balance Focus activities, standing, transfers, gait using FWW chair follow. Consider using mirror for midline orientation . Precautions Other Precautions seizure precautions; falls risk Recommendations To Nursing Amount of Assist Needed 2 Person Assist Discharge Recommendations PT Discharge Recommendations SNF Rehab,LTAC Equipment Needed for Home Before FWW Discharge Transportation Needs at Discharge Stretcher/Ambulance
--- NOTE | 2022-05-19 12:35 | CM.DPC ---
Addendum entered by Claudia Segal R.N. 05/19/22 15:17: Started calling [facility]: [facility] in [place]: They indicated that they are full [facility] in [place]: Attempted to call, no answer [facility] in [place]: Left message [facility] [place]: Left message [facility]: No answer. Will continue down the list of Adult family Homes. Addendum entered by Claudia Segal R.N. 05/19/22 14:53: Called facilities in the [facility]. [facility]: Left message [facility], [place]: Left message [facility]: Spoke to Galina in admissions, they are booked out for a year for detention beds. [facility]: Left message [facility]: Left message with Dwayne in admissions [facility] [place], [place]: Left message with social work program coordinator [facility] in [place]: Was told to call back Saturday. [facility]: Left Message. [facility]: Spoke to Sonam, she is in charge of central intake and checks with facilities in the area for openings. Faxed her over referral. Her phone number is: [phone]. Fax number is: [phone]. Faxed her clinicals. All other messages left did not mention patient's name, but did give brief description of insurance and detention needs. Original Note: DCP Cont: This [place] Wastewater Superintendent is working on facilities for patient. Called all facilities in [place]: [facility]: Left message [facility]: Left message with [facility]: Left message [facility]: Left message [facility]: Left message [facility]: Left message [facility]: Left message [facility]: Left Message [facility]: Left message Did not leave patient's name in messages, but did let them know patient's insurance, as well as scanning coordinator care needs. Called [facility] and spoke to Uzma in admissions. She stated, most likely, they will still decline, due to his insurance and limited detention care beds, and his history. Have already attempted [facility] and [facility], and they have declined. [facility] is not contracted with insurance. Left a message with main number at [facility], and asked if superviser of Maria Fernanda Danielle can be reached, since she can't do assessment until May 29, which is over a week away. The assessment is the barrier for his discharge, as daily rate needs to be set. Maria Fernanda works out of the [place] office. Goal is to attempt to get another individual to do his assessment sooner. Will start working on [facility] long term facilities, and will then, work on adult family home. The barrier of adult family home is that they will want assessment completed, as they do not bill [employer]. P: DCP to continue to work on placement. Claudia Segal RN/Lead Javascript Engineer
[2022-05-19 13:39] VITALS: BP 123/74; PULSE 87; RESP 17; TEMP 36.4; O2SAT 95
--- NOTE | 2022-05-19 14:43 | P.PN_ITS ---
Subjective Subjective Date Patient Seen: 05/19/22 Interval history: 62-year-old gentleman with underlying substance dependence, prior stroke with right-sided weakness, depression, chronic back pain, and asthma who is presently hospital day 18 initially admitted with concern for worsening stroke symptoms and altered mental status. patient is awaiting appropriate placement. Patient reports he has had chronic neck and arm pain. Patient reports that his neck and arm are about the same today. He states his appetite is poor, which he reports is typical when he is feeling depressed. He states he slept poorly last night. Did not get any benefit from tramadol. Exam Vital Signs (past 8 hours): - 05/19/22 08:00 05/19/22 08:00 05/19/22 13:39 Temperature 97.6 F 97.5 F L Pulse Rate 88 87 Respiratory Rate 17 17 Blood Pressure 116/86 123/74 Pulse Oximetry 95 95 Oxygen Delivery Method Room Air Oxygen Flow Rate 0 0 Oxygen Delivery Method Room Air Oxygen Flow Rate 0 Narrative Exam Narrative: GEN: ? Middle-aged male,Alert and oriented x 3,? 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, decreased strength to the right upper extremity, old scars to the left lower extremity Objective Labs Result Diagrams: 05/19/22 06:40 05/19/22 06:40 Labs: Laboratory Results - last 24 hr 05/16/22 05/19/22 05/19/22 16:30 06:40 06:40 WBC 9.5 RBC 5.70 Hgb 12.6 L Hct 39.6 L MCV 69.5 L MCH 22.2 L MCHC 31.9 RDW 21.0 H Plt Count 368 Neut % (Auto) 66.0 Lymph % (Auto) 23.3 L [place] % (Auto) 9.2 Eos % (Auto) 1.4 L Baso % (Auto) 0.1 Neut # (Auto) 6300 Lymph # (Auto) 2200 [place] # (Auto) 900 Eos # (Auto) 100 Baso # (Auto) 0 Nucleated RBCs Cancelled Hypersegmented Neuts Cancelled Hypogranular Neuts Cancelled Reactive Lymphocytes Cancelled Smudge Cells Cancelled Other Cell Type Cancelled Toxic Granulation Cancelled Toxic Vacuolation Cancelled Dohle Bodies Cancelled Jayde Rods Cancelled WBC Morphology Comment Cancelled Platelet Estimate Cancelled Clumped Platelets Cancelled Plt Morphology Comment Cancelled RBC Morphology Cancelled Dimorphic RBCs Cancelled Polychromasia Cancelled Hypochromasia Cancelled Poikilocytosis Cancelled Basophilic Stippling Cancelled Anisocytosis Cancelled Microcytosis Cancelled Macrocytosis Cancelled Spherocytes Cancelled Pappenheimer Bodies Cancelled Sickle Cells Cancelled Target Cells Cancelled Tear Drop Cells Cancelled Ovalocytes Cancelled Stomatocytes Cancelled Helmet Cells Cancelled [place] Bodies Cancelled [place] Rings Cancelled Neil Cells Cancelled Acanthocytes (Spur) Cancelled Rouleaux Cancelled Schistocytes Cancelled Sodium 136 L Potassium 4.2 Chloride 100 Carbon Dioxide 31 BUN 23 H Creatinine 0.49 L Estimated GFR > 60 BUN/Creatinine Ratio 46.9 H Glucose 91 Calcium 9.1 Total Bilirubin 0.6 AST 110 H ALT 168 H Alkaline Phosphatase 90 Total Protein 8.0 Albumin 4.1 Globulin 3.9 Albumin/Globulin Ratio 1.1 Anti-Nuclear Antibody Negative [facility] Medical History Asthma Chronic back pain greater than 3 months duration Closed intertrochanteric fracture of left femur Depression Drug abuse, IV History of CVA (cerebrovascular accident) Surgical History History of hernia repair Family History Father Unknown family medical history Mother No problems noted. Grandmother Myocardial infarction Grandfather No problems noted. Social History household members: friend(s) Smoking Status: Current some day smoker alcohol intake: current Assessment & Plan Assessment & Plan narrative: ?1.? Weakness Patient appears to be chronically debilitated.? No evidence of new stroke on 2 different brain MRIs.? C-spine MRI did reveal some chronic pathology but no acute cord compression.? Orthopedic surgery consulted and recommended outpatient follow-up with Neurosurgery.? Acetylcholine antibodies have been sent to evaluate for underlying myasthenia but they are pending.? There does appear to be some volitional component to his symptoms.? He does admit to depression.? He also admits to chronic pain.? Cymbalta initiated yesterday. Tramadol was given for pain which he does not feel was helpful. Given his substance use history, I a.m. reluctant to give him any additional opiate therapy. ? 2. Altered mental status / metabolic encephalopathy Patient appears to be at baseline.? No evidence for withdrawal presently.? He is working with therapies on a daily basis. ? 3. Acute respiratory failure new line secondary to pneumonia.? This has been treated and resolved. ? 4. Hypertension Presently normotensive. ? 5. Hyperlipidemia Continue atorvastatin ?6. Polysubstance dependence Although patient was intoxicated on admission, he has been? hospitalized for 17 days.? There was evident concern early on that people were bringing controlled substances into the hospital.? However,? he has had restricted visitation since that time. ? 7.? Oral thrush Patient received 7 days of oral fluconazole.? LFTs were rising and it was subsequently discontinued. ?8. Prior stroke with residual right-sided weakness Patient remains on atorvastatin 40 mg, aspirin 81 mg. 9. Microcytic anemia MCV is 69.5, which is quite low. Hemoglobin is 12.6. I am uncertain if he has any known history of thalassemia. Will send serum iron studies. 10. Transaminitis LFTs have been elevated over the last 5 draws. HIV was negative. Hepatitis-C panel pending. ? Code status Full ?prophylaxis On Lovenox ?disposition Pending placement Time Spent With Patient Critical Care time: I spent a total of [] minutes of critical care time on this patient's care today; this time is exclusive of procedural time. Quality VTE Deep Vein Thrombosis/Pulmonary Embolism Present on Admission: No
[2022-05-19 16:44] LABS: HEMOLYSIS < 15 (0-50); Iron 144 ug/dL (49-181)
[2022-05-19 16:54] LABS: Percent Iron Saturation 32 % (20-50); Total Iron Binding Capacity 452 ug/dL (261-462); Transferrin 371 mg/dL (206-381)
[2022-05-19 18:00] VITALS: BP 111/65; PULSE 96; RESP 17; TEMP 36.9; O2SAT 96
[2022-05-19 19:45] VITALS: BP 113/74; PULSE 89; RESP 16; TEMP 37.1; O2SAT 96
[2022-05-19] MEDS: ACETAMINOPHEN 325 MG TABLET PO (21:13)
[2022-05-19] MEDS: ATORVASTATIN 20 MG TABLET 40 MG PO (21:13)
[2022-05-20 06:00] VITALS: BP 127/82; PULSE 87; RESP 16; TEMP 36.8; O2SAT 96
[2022-05-20] MEDS: TRAMADOL 50 MG TABLET PO ×3 (06:01→20:11)
[2022-05-20] MEDS: LORazepam 1 MG TABLET PO ×2 (06:02→20:16)
--- NOTE | 2022-05-20 07:56 | P.PN_ITS ---
Subjective Subjective Date Patient Seen: 05/20/22 Interval history: ?62-year-old gentleman with underlying substance dependence, prior stroke with right-sided weakness, depression, chronic back pain, and asthma who is presently hospital day 19 initially admitted with concern for worsening stroke symptoms and altered mental status. Patient is awaiting appropriate placement which has been made difficult by his substance abuse.?Pt reports he slept better last night. He notes he ate a bit better yesterday. Does have a mild headache which he attributes to his chronic neck pain. Notes his neck/R arm pain are unchanged. Exam Vital Signs (past 8 hours): - 05/20/22 06:00 Temperature 98.2 F Pulse Rate 87 Respiratory Rate 16 Blood Pressure 127/82 Pulse Oximetry 96 Oxygen Flow Rate 0 Oxygen Delivery Method Room Air Oxygen Flow Rate 0 Narrative Exam Narrative: GEN: ? Middle-aged male,Alert and oriented x 3,? 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 Grandmother Myocardial infarction Grandfather No problems noted. Social History household members: friend(s) Smoking Status: Current some day smoker alcohol intake: current Assessment & Plan Assessment & Plan narrative: ?1.? Weakness Patient appears to be chronically debilitated.? No evidence of new stroke on 2 different brain MRIs.? C-spine MRI did reveal some chronic pathology but no acute cord compression.? Orthopedic surgery consulted and recommended outpatient follow-up with Neurosurgery.? Acetylcholine antibodies have been sent to evaluate for underlying myasthenia but they are pending.? DIXIE negative. There does appear to be some volitional component to his symptoms.? He does admit to depression.? He also admits to chronic pain.? Cymbalta initiated 05/18/22.? Tramadol was given for pain which he does not feel was helpful.? Given his substance use history, I am reluctant to give him any opiate therapy. ? 2. Altered mental status / metabolic encephalopathy Patient appears to be at baseline.? No evidence for withdrawal presently.? He is working with therapies on a daily basis. ? 3. Acute respiratory failure new line secondary to pneumonia.? This has been treated and resolved. ? 4. Hypertension Presently normotensive, not on therapy. ? 5. Hyperlipidemia Continue atorvastatin ?6. Polysubstance dependence Although patient was intoxicated on admission, he has been? hospitalized for 19 days.? There was evident concern early on that people were bringing controlled substances into the hospital.? However,? he has had restricted visitation since that time. ? 7.? Oral thrush Patient received 7 days of oral fluconazole.? LFTs were rising and it was subsequently discontinued. ?8. Prior stroke with residual right-sided weakness Patient remains on atorvastatin 40 mg, aspirin 81 mg. 9. Microcytic anemia MCV is 69.5, which is quite low.? Hemoglobin is 12.6.? I am uncertain if he has any known history of thalassemia.? Iron studies were wiithin normal limits. Will send a beta thalassemia lab. 10. Transaminitis LFTs have been elevated over the last 5 draws.? HIV was negative.? Hepatitis-C panel pending. ? Code status Full ?prophylaxis On Lovenox ?Disposition Pending placement. He remains a 2 person heavy assist for mobility and cannot return home at this time. Time Spent With Patient Critical Care time: I spent a total of [] minutes of critical care time on this patient's care today; this time is exclusive of procedural time. Quality VTE Deep Vein Thrombosis/Pulmonary Embolism Present on Admission: No
[2022-05-20] MEDS: FOLIC ACID 1 MG TABLET PO (08:03)
[2022-05-20] MEDS: MULTIVITAMIN 1 TABLET 1 TAB PO (08:03)
[2022-05-20] MEDS: DULOXETINE 30 MG CAPSULE PO (08:03)
[2022-05-20] MEDS: ASPIRIN EC 81 MG TABLET PO (08:03)
[2022-05-20] MEDS: NICOTINE 7 MG PATCH TOP (08:03)
[2022-05-20] MEDS: ENOXAPARIN 40 MG/0.4 ML SYRINGE SUBCUT (08:03)
[2022-05-20 12:00] VITALS: BP 116/78; PULSE 94; RESP 18; TEMP 36.8; O2SAT 96
--- NOTE | 2022-05-20 15:38 | PT.IPTN ---
Current Diagnoses Cerebral infarction, unspecified (05/01/22) Spinal stenosis, cervical region (05/01/22) Physical Therapy Treatment Note M2 PT-IP Current Condition Start: 05/07/22 09:18 Freq: NEEDED Status: Active Protocol: Document 05/18/22 13:22 SP (Rec: 05/18/22 16:05 SP [id number]) Physical Therapy Current Condition Current Condition Evaluation Date 05/07/22 Treatment Diagnosis metabolic encephalopathy; polysubstance withdrawal; impaired mobility Onset Date 04/30/22 M3 PT-IP Subjective Start: 05/07/22 09:18 Freq: NEEDED Status: Active Protocol: Document 05/20/22 15:38 AW (Rec: 05/20/22 15:47 AW [id number]) Subjective Physical Therapy Visit Type Type Treatment Note Visit Start Time 15:21 Visit Stop Time 15:38 Total Visit Minutes 17 Notes Nursing provided 2nd person assist 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 Physical Therapy Visit Comments Patient Comments Pt relatively alert and vocalizing consent to work with PT Therapy Pain Assessment Pain When Pain Assessed At Rest Pain Present Pain Present Denied Pain M4 PT-IP Mobility and Gait Start: 05/07/22 09:18 Freq: NEEDED Status: Active Protocol: Document 05/20/22 15:38 AW (Rec: 05/20/22 15:47 AW [id number]) PT-Bed Mobility Assessment Supine to Sit Supine to Sit Minimal Assistance,1 Person Assistance,Head of Bed Elevated,Bedrails Scooting Scooting to Edge of Bed Minimal Assistance PT-Transfer Assessment Sit to and From Stand Sit to and from Stand Maximum Assistance,2 Person Assistance Equipment Transfer Assistive Device Gait Belt,Front Wheeled Walker Orthotic/Prosthetic Devices or Brace: No Transfers Transfer Destination Chair Transfer Technique Stand Step Pivot Transfer Ability Level of Assist Maximum Assistance,2 Person Assistance Comments Mobility Comments Pt completed supine to sit with HOB elevated min A and demonstrated improved trunk control compared with previous visits. He was able to initiate RUE lift to the walker handle but needed [place] guidance ultimately. 2PA to stand and transfer to bedside chair with FWW. Pt was positioned on the chair with pillows to correct lateral lean. Chair alarm was on for safety. Gait Assessment Gait Gait Assistance Required: Maximum Assistance,2 Person Assist Distance (Feet) 3 Assistive Devices Assistive Device Gait Belt,Front Wheeled Walker Orthotic/Prosthetic Devices or Brace: No Gait Deviations General Gait Pattern Ataxic,Decreased Stride Length ,Decreased Feet Clearance, Flexed Trunk,Lateral Trunk Lean,Narrow Based Gait,Step-to Gait Factors Limiting Gait Function Factors Limiting Gait Function Decreased Activity Tolerance, Decreased Strength,Difficulty Following Directions, Incoordination,Pain,Poor Balance,Poor Safety Awareness Comments Gait Comments Transfer was poorly coordinated. Did not feel safe attempting gait today. PT-Balance Assessment Sitting Balance and Reactions Static Sitting Balance Ability Fair Dynamic Sitting Balance Ability Poor Standing Balance and Reactions Static Standing Balance Ability Poor Dynamic Standing Balance Ability Poor Device Used FWW M5 PT-IP Objective Assessments Start: 05/07/22 09:18 Freq: NEEDED Status: Active Protocol: Document 05/07/22 11:05 AW (Rec: 05/07/22 13:30 AW [id number]) Orientation Orientation/Cognition Level of Alertness Lethargic Orientation Name,Month,Place Safety Awareness Decreased Safety Awareness Gross Range of Motion Lower Extremity ROM Assessment Within Functional Limits Strength Lower Extremity Strength Assessment Bilaterally Impaired Comments Strength Comments R grossly 3-/5. L grossly 3+/5 Coordination Assessment Gross Coordination Gross Coordination Impaired Assessment Finger to Nose Test Activity Impossible Foot Tapping Test Minimal Impairment Coordination Comments Pt limited by BUE weakness with UE coordination testing. Sensation Assessment Sensation Gross Sensation WNL Muscle Tone Muscle Tone WNL Yes M6 PT-IP Treatment Start: 05/07/22 09:18 Freq: NEEDED Status: Active Protocol: Document 05/20/22 15:38 AW (Rec: 05/20/22 15:47 AW [id number]) Physical Therapy Treatment Education Education Provided Safety M7 PT-IP Assessment and Plan Start: 05/07/22 09:18 Freq: NEEDED Status: Active Protocol: Document 05/20/22 15:38 AW (Rec: 05/20/22 15:47 AW [id number]) PT Summary Assessment and Plan Potential Rehabilitation Potential Fair Status of Condition at Evaluation Evolving Summary Impairments Strength,Balance,Coordination, Cognition,Bed Mobility, Transfers,Gait Progress Towards Goals Slow Progress due to Medical Issues,Slow Progress due to Activity Tolerance,Slow Progress - Other Assessment Summary Pt requires assist with all mobility. He does appear to be initiating movement with RUE less hesitantly. Pt would benefit from continued skilled therapy, recommending SNF and probable longterm placement for strength toward functional mobility. Goals Bed Mobility Goal Contact Guard Assistance Transfer Goal Standby Assistance,Front Wheeled Walker Gait Goal Standby Assistance,Front Wheel Walker Gait Distance 150 Other Goals up/down 4 steps with rails SBA - improve transfers and gait to SBA with 4WW Days to Meet Goals 10 Frequency of Treatment Frequency Of Treatment Once a Day Treatment Plan Physical Therapy Treatment Plan Bed Mobility Training,Transfer Training,Gait Training, Therapeutic Exercise,Balance Retraining,Discharge Planning, Hot or Cold Pack,Neuromuscular Re-ed,Coordination Retraining Other Recommendations and Next Treatment bed mob, sitting balance Focus activities, standing, transfers, gait using FWW chair follow. Consider using mirror for midline orientation . Precautions Other Precautions seizure precautions; falls risk Recommendations To Nursing Amount of Assist Needed 2 Person Assist Discharge Recommendations PT Discharge Recommendations SNF Rehab,LTAC Equipment Needed for Home Before FWW Discharge Transportation Needs at Discharge Stretcher/Ambulance
[2022-05-20 18:00] VITALS: BP 123/80; PULSE 87; RESP 18; TEMP 36.1; O2SAT 94
[2022-05-20 19:43] VITALS: BP 118/81; PULSE 90; RESP 16; TEMP 36.2; O2SAT 95
[2022-05-20] MEDS: ATORVASTATIN 20 MG TABLET 40 MG PO (20:11)
[2022-05-21] VITALS: RESP 16
[2022-05-21] MEDS: LORazepam 1 MG TABLET PO (00:46)
[2022-05-21] MEDS: ACETAMINOPHEN 325 MG TABLET PO ×3 (00:46→14:07)
[2022-05-21 05:28] VITALS: BP 128/87; PULSE 94; RESP 16; TEMP 36.4; O2SAT 96
--- NOTE | 2022-05-21 09:25 | P.PN_ITS ---
Subjective Subjective Date Patient Seen: 05/21/22 Interval history: Hospitalist follow-up visit. Patient reporting no changes to function of the right upper extremity. Still having decreased use of his right upper extremity. Is quite teary and everything is overwhelming for him. States he has no close family. Awaiting placement. Not complaining of fever chills nausea vomiting or diaphoresis. No chest pain palpitations. No shortness of breath wheezing or cough. No abdominal pain constipation or diarrhea. Able to move all extremities but significant decreased strength and use of the right upper extremity Exam Vital Signs (past 8 hours): - 05/21/22 05:28 Temperature 97.5 F L Pulse Rate 94 H Respiratory Rate 16 Blood Pressure 128/87 Pulse Oximetry 96 Oxygen Flow Rate 0 Oxygen Delivery Method Room Air Oxygen Flow Rate 0 Narrative Exam Narrative: GEN: ? Middle-aged male,Alert and oriented x 3,? speaks with a very soft voice which is difficult to understand, NAD. Teary and feeling alone. 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 Grandmother Myocardial infarction Grandfather No problems noted. Social History household members: friend(s) Smoking Status: Current some day smoker alcohol intake: current Assessment & Plan Assessment & Plan narrative: ?1.? Weakness Patient appears to be chronically debilitated.? No evidence of new stroke on 2 different brain MRIs.? C-spine MRI did reveal some chronic pathology but no acute cord compression.? Orthopedic surgery consulted and recommended outpatient follow-up with Neurosurgery.? Acetylcholine antibodies have been sent to evaluate for underlying myasthenia but they are pending.? DIXIE negative.? There does appear to be some volitional component to his symptoms.? He does admit to depression and just recently started on Cymbalta.? He also admits to chronic pain.? Cymbalta initiated 05/18/22.? Tramadol was given for pain which he does not feel was helpful.? Given his substance use history, patient not being given opiates. ? 2. Altered mental status / metabolic encephalopathy Patient appears to be at baseline.? ? 3. Acute respiratory failure new line secondary to pneumonia.? This has been treated and resolved. ? 4. Hypertension Presently normotensive, not on therapy. ? 5. Hyperlipidemia Continue atorvastatin ?6. Polysubstance dependence Although patient was intoxicated on admission, he has been? hospitalized for 19 days.? There was evident concern early on that people were bringing controlled substances into the hospital.? However,? he has had restricted visitation since that time. ? 7.? Oral thrush Patient received 7 days of oral fluconazole with improvement.? LFTs were rising and it was subsequently discontinued. ?8. Prior stroke with residual right-sided weakness Patient remains on atorvastatin 40 mg, aspirin 81 mg. 9. Microcytic anemia MCV is 69.5, which is quite low.? Hemoglobin is 12.6.? I am uncertain if he has any known history of thalassemia.? Iron studies were within normal limits.?Has been sent for beta thalassemia lab. 10. Transaminitis LFTs have been elevated over the last 5 draws.? HIV was negative.? Hepatitis-C panel pending. ? Code status Full ?prophylaxis On Lovenox ?Disposition Pending placement.? He remains a 2 person heavy assist for mobility and cannot return home at this time Time Spent With Patient Critical Care time: I spent a total of [] minutes of critical care time on this patient's care today; this time is exclusive of procedural time. Quality VTE Deep Vein Thrombosis/Pulmonary Embolism Present on Admission: No
[2022-05-21] MEDS: ENOXAPARIN 40 MG/0.4 ML SYRINGE SUBCUT (09:28)
[2022-05-21] MEDS: ASPIRIN EC 81 MG TABLET PO (09:29)
[2022-05-21] MEDS: TRAMADOL 50 MG TABLET PO ×3 (09:29→21:51)
[2022-05-21] MEDS: NICOTINE 7 MG PATCH TOP (09:29)
[2022-05-21] MEDS: DULOXETINE 30 MG CAPSULE PO (09:29)
[2022-05-21] MEDS: MULTIVITAMIN 1 TABLET 1 TAB PO (09:30)
[2022-05-21] MEDS: FOLIC ACID 1 MG TABLET PO (09:30)
--- NOTE | 2022-05-21 11:38 | OT.IP.TRT ---
Current Diagnoses Cerebral infarction, unspecified (05/01/22) Spinal stenosis, cervical region (05/01/22) Occupational Therapy Treatment Note M2 OT-IP Current Condition Start: 05/07/22 12:13 Freq: Status: Active Protocol: Document 05/07/22 12:13 CGR (Rec: 05/07/22 12:37 CGR [id number]) Occupational Therapy Current Condition Current Condition Evaluation Date 05/07/22 Treatment Diagnosis generalized weakness, hx IV drug use, R CVA 2016 Diagnosis Onset Date 05/01/22 M3 OT- IP Subjective and Pain Start: 05/07/22 12:13 Freq: Status: Active Protocol: Document 05/21/22 12:12 CGR (Rec: 05/21/22 12:20 CGR [id number]) OT- Subjective Occupational Therapy Visit Type Type Progress Note Visit Start Time 10:57 Visit Stop Time 11:38 Total Visit Minutes 41 OT Pain Assessment Pain When Pain Assessed At Rest Pain Present Pain Present Pain Reported Location Neck Scale Used did not rate but reports pain Management Techniques Modification of Treatment,Re- positioning M4 OT- IP ADL's Start: 05/07/22 12:13 Freq: Status: Active Protocol: Document 05/21/22 12:12 CGR (Rec: 05/21/22 12:20 CGR [id number]) OT [id number] Comments OT Self-Feeding Comments not meal time OT ADL-Grooming General Evaluation Grooming Ability Minimal Assistance Areas Needing Assistance Face Washing Comments OT Grooming Comments in shower OT ADL-Oral Care Comments Oral Care Comments not performed OT ADL-Dressing General Eval Upper Body Dressing Ability Maximum Assistance Lower Body Dressing Ability Total Assistance Areas Needing Assistance Socks Comments OT Dressing Comments hospital gown and socks donned after shower OT ADL-Toileting Comments OT Toileting Comments not performed OT ADL-Bathing Bathing Type Bathing Type Shower General Evaluation Bathing Ability Maximal Assistance,Total Assistance Areas Needing Assistance Retrieving/Setting Up Items, Wash/Dry Face,Wash/Dry Upper Body,Wash/Dry Back,Wash/Dry Perineal Area,Wash/Dry Lower Extremities Comments OT Bathing Comments Pt participated in shower seated on BSC. Pt leaned up against the wall for much of the session and needed max to total assist for all portions of the shower. M5 OT- IP IADL's Start: 05/07/22 12:13 Freq: Status: Active Protocol: Document 05/07/22 12:13 CGR (Rec: 05/07/22 12:37 CGR [id number]) OT-Instrumental Activities of Daily Living Deficits IADL Deficits Identified Deficits Home Safety Awareness Awareness of Need for Assistance at Home Decreased Awareness Ability to Problem Solve Emergency Unable to Problem Solve Situations Medication Management Medication Management Comments Concerns about pt's ability to perform consistently Money Management Money Management Comments Concerns about pt's ability to perform consistently Meal Preparation Meal Preparation Comments Concerns about pt's ability to perform consistently Egg Pasteurizer Egg Pasteurizer Comments Concerns about pt's ability to perform consistently M6 OT- IP Functional Cognition Start: 05/07/22 12:13 Freq: Status: Active Protocol: Document 05/19/22 12:12 CCC (Rec: 05/19/22 12:28 CCC [id number]) Cognitive Factors Limiting Selfcare Function Cognitive Comments Cognitive Assessment Comments Pt able to say what he needs to do while getting up but needign cues to completeness and reminders to be sure to get his feet back before standing. M7 OT- IP Mobility and Balance Start: 05/07/22 12:13 Freq: Status: Active Protocol: Document 05/21/22 12:12 CGR (Rec: 05/21/22 12:20 CGR [id number]) OT- Bed Mobility Assessment Supine to Sit Supine to Sit Assist Moderate Assistance,1 Person Assistance Scooting Scooting to Edge of Bed Standby Assistance OT-Transfer Assessment Sit to and From Stand Sit to and from Stand Moderate Assistance,Maximum Assistance,1 Person Assistance ,2 Person Assistance Transfers Transfer Ability Moderate Assistance,Maximum Assistance,1 Person Assistance ,2 Person Assistance Technique Transfer Destination Bed,Bedside Commode,Chair, Shower Stall Transfer Technique Stand Pivot Devices Transfer Assistive Devices Gait Belt,Front Wheeled Walker Comments Mobility Comments Pt needed mod to max x 1 for initial transfer then mod to max x 2 for transfer to bedside commode. Pt needed assist with sitting balance during shower and progressively needed more assist for transfers as session continued. OT- Balance Assessment Sitting Balance and Reactions Static Sitting Balance Ability Poor Dynamic Sitting Balance Ability Poor M8 OT- IP Objective Assessments Start: 05/07/22 12:13 Freq: Status: Active Protocol: Document 05/07/22 12:13 CGR (Rec: 05/07/22 12:37 CGR [id number]) OT Gross Range of Motion Upper Extremity Range of Motion ROM Impairments AAROM WFL OT Strength Upper Extremity Strength Assessment Bilaterally Impaired Comments Strength Comments R weaker than L R grossly 2/5 L grossly 2+ to 3-/5 OT- Coordination Assessment Upper Extremity Finger to Nose Test Bilateral UE Impaired Finger Tapping Test Bilateral UE Impaired OT-Muscle Tone Assessment Muscle Tone WNL Yes OT Sensation Assessment Edema Edema Absent M9 OT- IP Assessment and Plan Start: 05/07/22 12:13 Freq: Status: Active Protocol: Document 05/21/22 12:12 CGR (Rec: 05/21/22 12:20 CGR [id number]) OT Summary Assessment and Plan Potential Rehabilitation Potential Fair Analytic Complexity at Evaluation High Summary OT Impairments Pain,Strength,Balance, Coordination,Functional Cognition,Functional Mobility, Self-Feeding,Grooming,Dressing ,Toileting,Bathing,Toilet Transfers,Shower Transfers, Activity Tolerance Progress Towards Goals Progressing Toward Goals Assessment Summary Pt participated in shower on this date. Pt appears motivated to participate in therapy and self care but endurance and strength prevent him from assisting more. Pt would benefit from continued therapy services. Goals Self-Feeding Goal Standby Assistance Grooming Goal Minimal Assistance Dressing Goal Moderate Assistance Toileting Goal Moderate Assistance Bathing Goal Moderate Assistance Toilet Transfer Goal Minimal Assistance Shower Transfer Goal Minimal Assistance Days to Meet Goals 42 Frequency of Treatment Frequency Of Treatment Once a Day Treatment Plan OT Treatment Plan ADL Training,Functional Cognition Training,Functional Mobility,Neuromuscular Re- education,Therapeutic Exercises,Patient/Family Education,Discharge Planning Other Treatment Recommendations and Next sitting balance with ADLs Treatment Focus Discharge Recommendations OT Discharge Recommendations SNF Rehab,LTAC Transportation Needs at Discharge Wheelchair/Cabulance
[2022-05-21 12:00] VITALS: BP 133/99; PULSE 89; RESP 18; TEMP 36.1; O2SAT 94
[2022-05-21] MEDS: GABAPENTIN 300 MG CAPSULE PO ×2 (14:07→21:48)
--- NOTE | 2022-05-21 14:23 | PT.IPTN ---
Current Diagnoses Cerebral infarction, unspecified (05/01/22) Spinal stenosis, cervical region (05/01/22) Physical Therapy Treatment Note M2 PT-IP Current Condition Start: 05/07/22 09:18 Freq: NEEDED Status: Active Protocol: Document 05/18/22 13:22 SP (Rec: 05/18/22 16:05 SP [id number]) Physical Therapy Current Condition Current Condition Evaluation Date 05/07/22 Treatment Diagnosis metabolic encephalopathy; polysubstance withdrawal; impaired mobility Onset Date 04/30/22 M3 PT-IP Subjective Start: 05/07/22 09:18 Freq: NEEDED Status: Active Protocol: Document 05/21/22 14:23 AW (Rec: 05/21/22 14:35 AW [id number]) Subjective Physical Therapy Visit Type Type Treatment Note Visit Start Time 14:06 Visit Stop Time 14:21 Total Visit Minutes 15 Notes Nursing provided 2nd person assist Number of PRODUCTION ASSOCIATE Visits 0 Physical Therapy Visit Comments Patient Comments Pt showered with OT today and expresses feeling fatigued. Therapy Pain Assessment Pain When Pain Assessed During Mobility Pain Present Pain Present Pain Reported Location Back Scale Used not quantified Pain Behaviors Facial Grimacing,Wincing Pain Management Techniques Distraction,Modification of Treatment,Re-positioning, Timing of Activity with Medications M4 PT-IP Mobility and Gait Start: 05/07/22 09:18 Freq: NEEDED Status: Active Protocol: Document 05/21/22 14:23 AW (Rec: 05/21/22 14:35 AW [id number]) PT-Bed Mobility Assessment Supine to Sit Supine to Sit Minimal Assistance,1 Person Assistance,Bedrails Scooting Scooting to Edge of Bed Minimal Assistance PT-Transfer Assessment Sit to and From Stand Sit to and from Stand Maximum Assistance,2 Person Assistance,Use of Upper Extremities Equipment Transfer Assistive Device Gait Belt,Front Wheeled Walker Orthotic/Prosthetic Devices or Brace: No Transfers Transfer Destination Chair Transfer Technique Stand Pivot Transfer Ability Level of Assist Moderate Assistance,Maximum Assistance,1 Person Assistance ,2 Person Assistance Comments Mobility Comments Pt was able to complete supine to long-sitting min A. He moved his legs toward right side of bed but began to lean posteriorly, needing min A to keep trunk upright. In sitting at EOB, pt was able to withstand multidirectional balance challenges with perturbations applied at shoulder and pelvic girdles as well as at sternum. Pt has most difficulty resisting right rotation. Max A x 2 to stand and PT did stabilize R knee and R hand on walker handle. Max A x 2 to transfer to chair and pt was able to follow instructions to reach left hand for chair arm to help control descent. Pt was too fatigued to continue with therapy and was left in the chair with call light and tray table in reach. Gait Assessment Gait Gait Assistance Required: Maximum Assistance,2 Person Assist Distance (Feet) 3 Assistive Devices Assistive Device Gait Belt,Front Wheeled Walker Orthotic/Prosthetic Devices or Brace: No Gait Deviations General Gait Pattern Ataxic,Decreased Stride Length ,Decreased Feet Clearance, Flexed Trunk,Lateral Trunk Lean,Narrow Based Gait,Step-to Gait Factors Limiting Gait Function Factors Limiting Gait Function Decreased Activity Tolerance, Decreased Strength,Difficulty Following Directions, Incoordination,Pain,Poor Balance,Poor Safety Awareness Comments Gait Comments Transfer only today due to fatigue. M5 PT-IP Objective Assessments Start: 05/07/22 09:18 Freq: NEEDED Status: Active Protocol: Document 05/07/22 11:05 AW (Rec: 05/07/22 13:30 AW [id number]) Orientation Orientation/Cognition Level of Alertness Lethargic Orientation Name,Month,Place Safety Awareness Decreased Safety Awareness Gross Range of Motion Lower Extremity ROM Assessment Within Functional Limits Strength Lower Extremity Strength Assessment Bilaterally Impaired Comments Strength Comments R grossly 3-/5. L grossly 3+/5 Coordination Assessment Gross Coordination Gross Coordination Impaired Assessment Finger to Nose Test Activity Impossible Foot Tapping Test Minimal Impairment Coordination Comments Pt limited by BUE weakness with UE coordination testing. Sensation Assessment Sensation Gross Sensation WNL Muscle Tone Muscle Tone WNL Yes M6 PT-IP Treatment Start: 05/07/22 09:18 Freq: NEEDED Status: Active Protocol: Document 05/21/22 14:23 AW (Rec: 05/21/22 14:35 AW [id number]) Physical Therapy Treatment Education Education Provided Safety Other Treatments Other Treatment Performed Seated balance exercise as described in Mobility Comments . M7 PT-IP Assessment and Plan Start: 05/07/22 09:18 Freq: NEEDED Status: Active Protocol: Document 05/21/22 14:23 AW (Rec: 05/21/22 14:35 AW [id number]) PT Summary Assessment and Plan Potential Rehabilitation Potential Fair Status of Condition at Evaluation Evolving Summary Impairments Strength,Balance,Coordination, Cognition,Bed Mobility, Transfers,Gait Assessment Summary Fahad is more fatigued today after showering with OT. RUE improving very slowly with smoother initiation and target -finding. Pt would benefit from continued skilled therapy , recommending SNF and probable detention placement for strength toward functional mobility. Goals Bed Mobility Goal Contact Guard Assistance Transfer Goal Standby Assistance,Front Wheeled Walker Gait Goal Standby Assistance,Front Wheel Walker Gait Distance 150 Other Goals up/down 4 steps with rails SBA - improve transfers and gait to SBA with 4WW Days to Meet Goals 10 Frequency of Treatment Frequency Of Treatment Once a Day Treatment Plan Physical Therapy Treatment Plan Bed Mobility Training,Transfer Training,Gait Training, Therapeutic Exercise,Balance Retraining,Discharge Planning, Hot or Cold Pack,Neuromuscular Re-ed,Coordination Retraining Other Recommendations and Next Treatment bed mob, sitting balance Focus activities, standing, transfers, gait using FWW chair follow. Consider using mirror for midline orientation . Precautions Other Precautions seizure precautions; falls risk Recommendations To Nursing Amount of Assist Needed 2 Person Assist Discharge Recommendations PT Discharge Recommendations SNF Rehab,LTAC Equipment Needed for Home Before FWW Discharge Transportation Needs at Discharge Stretcher/Ambulance
--- NOTE | 2022-05-21 15:39 | SLP.IPNOTE ---
PILOT INSTRUCTOR entered room at 14:35 to work with the pt. Pt was sitting upright in chair next to bedside with aide present and continued to present with a soft spoken voice. The pt reported he was having no difficulty with his meals at this time. Per observation, it appeared he had drank most of his protein shake. When asked if he was willing to work with this PILOT INSTRUCTOR, he refused, stating he was in pain and tired. PILOT INSTRUCTOR and aide worked on his phone as he wanted to set it up for voice activation but did not know how. This may be a good compensatory strategy for him. Prior to PILOT INSTRUCTOR leaving the room at 14:45, he had no further questions/concerns. Will continue to follow and see if he will work tomorrow.
[2022-05-21 17:15] VITALS: BP 126/86; PULSE 83; RESP 18; TEMP 36.9; O2SAT 96
--- NOTE | 2022-05-21 19:14 | PC.NURSE ---
Shift summary: VSS. Patient tearful intermittently today, and states his pain in his back is not improved with tramadol. Dr. Dueñas made aware of patient's complaints and gabapentin was added. Patient states pain improving this evening. Patient worked with PT and OT today and showered. Call light within reach. COntinue to monitor.
[2022-05-21 20:36] VITALS: PULSE 72
[2022-05-21] MEDS: ALBUTEROL 2.5 MG/3 ML NEB (ADULT) INH (20:36)
[2022-05-21] MEDS: ATORVASTATIN 20 MG TABLET 40 MG PO (21:48)
[2022-05-21 22:17] VITALS: BP 116/79; PULSE 78; RESP 18; TEMP 36.2; O2SAT 96
[2022-05-22] MEDS: TRAMADOL 50 MG TABLET PO ×2 (05:46→21:49)
[2022-05-22] MEDS: ACETAMINOPHEN 325 MG TABLET PO ×2 (05:47→21:49)
[2022-05-22 06:00] VITALS: BP 130/62; PULSE 70; RESP 17; TEMP 36.1; O2SAT 97
--- NOTE | 2022-05-22 09:03 | DIET.CONS2 ---
Dietary Inpatient Consultation Note Admission Date: 05/01/2022 04:28 Pt remains on Dysphagia Mechanical Soft diet, 1;1 feeding with weighted silverware. Pt continues to drink protein smoothies and some of meal trays, POs 50-75%. Recc updated weight as pt c extended hospitalization. Diet: 05/14/22 Dinner Dysphagia Diet Diet Modifications: protein smoothie tid, 1/2 portions weight silverwa Liquid consistency: Normal/Thin Food texture: Dysphagia Mechanical Soft Nutrition Percent Meal Consumed 75% 05/21/22 18:04 Percent Meal Consumed 50% 05/21/22 12:34 Percent Meal Consumed 25% 05/21/22 09:09 Percent Meal Consumed 50% 05/20/22 13:00 Electronically Signed by: Michaela Alicea 05/22/22 09:03 Clinical Dietitian [address] [address]
--- NOTE | 2022-05-22 09:21 | P.PN_ITS ---
Subjective Subjective Interval history: Hospitalist follow-up visit. Patient reporting no changes to function of the right upper extremity.? Still having decreased use of his right upper extremity. Patient much more calm today and speaking articulately asking question of whether Suboxone would be appropriate for him however patient is not in acute withdrawal stage and therefore Suboxone was not the appropriate treatment at this time. Unclear as to the specific length of time that the patient has not been using substances. States he did not sleep well last night. The combination of Cymbalta and gabapentin peers to have settled him somewhat. Awaiting placement.? Not complaining of fever chills nausea vomiting or diaphoresis.? No chest pain palpitations.? No shortness of breath wheezing or cough.? No abdominal pain constipation or diarrhea.? Able to move all extremities but significant decreased strength and use of the right upper extremity Exam Vital Signs (past 8 hours): - 05/22/22 06:00 Temperature 96.9 F L Pulse Rate 70 Respiratory Rate 17 Blood Pressure 130/62 Pulse Oximetry 97 Oxygen Flow Rate 0 Oxygen Delivery Method Room Air Oxygen Flow Rate 0 Narrative Exam Narrative: GEN: ? Middle-aged male,Alert and oriented x 3,? speaks with a very soft voice which is difficult to understand somewhat due to his accent, NAD.? Calm today. HEENT:NC, Face symmetric. Pupils equal reactive to light. Extraocular movements normal. Neck is supple. Trachea midline. CHEST: Chest is clear to auscultation. No wheezes or crackles. CV: Heart sounds S1 and S2 with no extra sounds or murmurs. ABD: Soft nontender bowel sounds normal. No masses organomegaly. EXTR: warm, well perfused. Old scars to the BLEs w/some discoloration. 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 Grandmother Myocardial infarction Grandfather No problems noted. Social History household members: friend(s) Smoking Status: Current some day smoker alcohol intake: current Assessment & Plan Assessment & Plan narrative: ?1.? Weakness Patient appears to be chronically debilitated.? No evidence of new stroke on 2 different brain MRIs.? C-spine MRI did reveal some chronic pathology but no acute cord compression.? Orthopedic surgery consulted and recommended outpatient follow-up with Neurosurgery.? Acetylcholine antibodies have been sent to evaluate for underlying myasthenia but they are pending.? DIXIE negative.? Hepat itis panel is also pending. There does appear to be some volitional component to his symptoms.? He does admit to depression and just recently started on Cymbalta.? Also has started on gabapentin to help with chronic pain.? Cymbalta initiated 05/18/22.? Tramadol was given for pain which he does not feel was helpful.? Given his substance use history, patient not being given opiates. Suboxone would not be appropriate either. ? 2. Altered mental status / metabolic encephalopathy Patient appears to be at baseline.? ? 3. Acute respiratory failure new line secondary to pneumonia.? This has been treated and resolved. ? 4. Hypertension Presently normotensive, not on therapy. ? 5. Hyperlipidemia Continue atorvastatin ?6. Polysubstance dependence Although patient was intoxicated on admission, he has been? hospitalized for 19 days.? There was evident concern early on that people were bringing controlled substances into the hospital.? However,? he has had restricted visitation since that time. Suboxone would not be appropriate at this time. ? 7.? Oral thrush Patient received 7 days of oral fluconazole with improvement.? LFTs were rising and it was subsequently discontinued. ?8. Prior stroke with residual right-sided weakness Patient remains on atorvastatin 40 mg, aspirin 81 mg. 9. Microcytic anemia MCV is 69.5, which is quite low.? Hemoglobin is 12.6.? I am uncertain if he has any known history of thalassemia.? Iron studies were within normal limits.?Has been sent for beta thalassemia lab. 10. Transaminitis LFTs have been elevated over the last 5 draws.? HIV was negative.? Hepatitis-C panel pending. Patient is awaiting placement. ? Code status Full ?prophylaxis On Lovenox Time Spent With Patient Critical Care time: I spent a total of [] minutes of critical care time on this patient's care today ; this time is exclusive of procedural time. Quality VTE Deep Vein Thrombosis/Pulmonary Embolism Present on Admission: No
[2022-05-22] MEDS: GABAPENTIN 300 MG CAPSULE PO ×3 (09:56→21:50)
[2022-05-22] MEDS: MULTIVITAMIN 1 TABLET 1 TAB PO (09:56)
[2022-05-22] MEDS: ASPIRIN EC 81 MG TABLET PO (09:56)
[2022-05-22] MEDS: FOLIC ACID 1 MG TABLET PO (09:56)
[2022-05-22] MEDS: DULOXETINE 30 MG CAPSULE PO (09:56)
[2022-05-22] MEDS: ENOXAPARIN 40 MG/0.4 ML SYRINGE SUBCUT (09:57)
[2022-05-22 10:00] VITALS: PULSE 74; O2SAT 95
[2022-05-22] MEDS: NICOTINE 7 MG PATCH TOP (10:54)
[2022-05-22 11:46] LABS: Acetylcholine Blocking AB 12 % (0-25)
[2022-05-22 12:00] VITALS: BP 137/86; PULSE 83; RESP 16; TEMP 36.8; O2SAT 96
--- NOTE | 2022-05-22 12:18 | PT.IPTN ---
Current Diagnoses Cerebral infarction, unspecified (05/01/22) Spinal stenosis, cervical region (05/01/22) Physical Therapy Treatment Note M2 PT-IP Current Condition Start: 05/07/22 09:18 Freq: NEEDED Status: Active Protocol: Document 05/18/22 13:22 SP (Rec: 05/18/22 16:05 SP [id number]) Physical Therapy Current Condition Current Condition Evaluation Date 05/07/22 Treatment Diagnosis metabolic encephalopathy; polysubstance withdrawal; impaired mobility Onset Date 04/30/22 M3 PT-IP Subjective Start: 05/07/22 09:18 Freq: NEEDED Status: Active Protocol: Document 05/22/22 11:53 KS (Rec: 05/22/22 14:06 KS [id number]) Subjective Physical Therapy Visit Type Type Treatment Note Visit Start Time 11:53 Visit Stop Time 12:18 Total Visit Minutes 25 Notes co-treat w/ OT. Number of SOFTWARE APPLICATIONS DEVELOPER Visits 1 Physical Therapy Visit Comments Patient Comments Pt agreeable to working w/ therapy. M4 PT-IP Mobility and Gait Start: 05/07/22 09:18 Freq: NEEDED Status: Active Protocol: Document 05/22/22 11:53 KS (Rec: 05/22/22 14:06 KS [id number]) PT-Bed Mobility Assessment Supine to Sit Supine to Sit Minimal Assistance,1 Person Assistance,Bedrails Scooting Scooting to Edge of Bed Minimal Assistance PT-Transfer Assessment Sit to and From Stand Sit to and from Stand Moderate Assistance,2 Person Assistance,Use of Upper Extremities Equipment Transfer Assistive Device Gait Belt,Front Wheeled Walker Orthotic/Prosthetic Devices or Brace: No Transfers Transfer Destination Chair Transfer Technique Pt ambulated Transfer Ability Level of Assist Moderate Assistance,Maximum Assistance,2 Person Assistance Comments Mobility Comments Pt in bed upon arrival and agreeable to ambulation. Pt Min A for sup<>Sit, Mod A x2 for sit<>stand w/ FWW and Mod/ Max A x2 for stand step pivot to chair. Following transfer, pt performed 2 bouts of walking w/ FWW Mod/Max A x2 w/ verbal and tactile cues for upright posture, leg sequencing, and FWW mgmt. First amb distance ~6 ft and second ~15 ft. Pt left in chair w/ all needs in reach. Gait Assessment Gait Gait Assistance Required: Moderate Assistance,Maximum Assistance,2 Person Assist Distance (Feet) 15 Assistive Devices Orthotic/Prosthetic Devices or Brace: No Gait Deviations General Gait Pattern Ataxic,Decreased Stride Length ,Decreased Feet Clearance, Flexed Trunk,Lateral Trunk Lean,Narrow Based Gait,Step-to Gait Factors Limiting Gait Function Factors Limiting Gait Function Decreased Activity Tolerance, Decreased Strength,Difficulty Following Directions, Incoordination,Pain,Poor Balance,Poor Safety Awareness Comments Gait Comments Please refer to mobility section for details. PT-Balance Assessment Sitting Balance and Reactions Static Sitting Balance Ability Fair Dynamic Sitting Balance Ability Fair Standing Balance and Reactions Static Standing Balance Ability Poor Dynamic Standing Balance Ability Poor Device Used FWW M5 PT-IP Objective Assessments Start: 05/07/22 09:18 Freq: NEEDED Status: Active Protocol: Document 05/07/22 11:05 AW (Rec: 05/07/22 13:30 AW [id number]) Orientation Orientation/Cognition Level of Alertness Lethargic Orientation Name,Month,Place Safety Awareness Decreased Safety Awareness Gross Range of Motion Lower Extremity ROM Assessment Within Functional Limits Strength Lower Extremity Strength Assessment Bilaterally Impaired Comments Strength Comments R grossly 3-/5. L grossly 3+/5 Coordination Assessment Gross Coordination Gross Coordination Impaired Assessment Finger to Nose Test Activity Impossible Foot Tapping Test Minimal Impairment Coordination Comments Pt limited by BUE weakness with UE coordination testing. Sensation Assessment Sensation Gross Sensation WNL Muscle Tone Muscle Tone WNL Yes M6 PT-IP Treatment Start: 05/07/22 09:18 Freq: NEEDED Status: Active Protocol: Document 05/22/22 11:53 KS (Rec: 05/22/22 14:06 KS [id number]) Physical Therapy Treatment Education Education Provided Safety M7 PT-IP Assessment and Plan Start: 05/07/22 09:18 Freq: NEEDED Status: Active Protocol: Document 05/22/22 11:53 KS (Rec: 05/22/22 14:06 KS [id number]) PT Summary Assessment and Plan Potential Rehabilitation Potential Fair Status of Condition at Evaluation Evolving Summary Impairments Strength,Balance,Coordination, Cognition,Bed Mobility, Transfers,Gait Assessment Summary Pt showing small improvements today w/ ambulation and sit<> stand. Mod A x2 for sit<>stand and Mod/Max X2 for ambulation w/ FWW. Pt able to ambulate up to 15 ft today, but requires hand over hand assist on R to maintain hold of FWW handle and max A to maintain standing balance due to RLE weakness and tone, poor balance. Pt would benefit from continued skilled therapy, recommending SNF and probable [place] [facility] placement for strength toward functional mobility. Goals Bed Mobility Goal Contact Guard Assistance Transfer Goal Standby Assistance,Front Wheeled Walker Gait Goal Standby Assistance,Front Wheel Walker Gait Distance 150 Other Goals up/down 4 steps with rails SBA - improve transfers and gait to SBA with 4WW Days to Meet Goals 10 Frequency of Treatment Frequency Of Treatment Once a Day Treatment Plan Physical Therapy Treatment Plan Bed Mobility Training,Transfer Training,Gait Training, Therapeutic Exercise,Balance Retraining,Discharge Planning, Hot or Cold Pack,Neuromuscular Re-ed,Coordination Retraining Other Recommendations and Next Treatment bed mob, sitting balance Focus activities, standing, transfers, gait using FWW chair follow. Consider using mirror for midline orientation . Precautions Other Precautions seizure precautions; falls risk Recommendations To Nursing Amount of Assist Needed 2 Person Assist Discharge Recommendations PT Discharge Recommendations SNF Rehab,LTAC Equipment Needed for Home Before FWW Discharge Transportation Needs at Discharge Stretcher/Ambulance
--- NOTE | 2022-05-22 12:23 | OT.IP.TRT ---
Current Diagnoses Cerebral infarction, unspecified (05/01/22) Spinal stenosis, cervical region (05/01/22) Occupational Therapy Treatment Note M2 OT-IP Current Condition Start: 05/07/22 12:13 Freq: Status: Active Protocol: Document 05/07/22 12:13 CGR (Rec: 05/07/22 12:37 CGR [id number]) Occupational Therapy Current Condition Current Condition Evaluation Date 05/07/22 Treatment Diagnosis generalized weakness, hx IV drug use, R CVA 2016 Diagnosis Onset Date 05/01/22 M3 OT- IP Subjective and Pain Start: 05/07/22 12:13 Freq: Status: Active Protocol: Document 05/22/22 11:50 [facility] (Rec: 05/22/22 13:40 [facility] [id number]) OT- Subjective Occupational Therapy Visit Type Type Treatment Note Visit Start Time 11:50 Visit Stop Time 12:23 Total Visit Minutes 33 Occupational Therapy Visit Comments Patient Comments Pt initially did not want to get up and then changed his mind. OT Pain Assessment Pain When Pain Assessed At Rest Pain Present Pain Present Pain Reported M4 OT- IP ADL's Start: 05/07/22 12:13 Freq: Status: Active Protocol: Document 05/22/22 11:50 [facility] (Rec: 05/22/22 13:40 [facility] [id number]) OT AIB-Awbx-Sikkqih Comments OT Self-Feeding Comments Pt needing initial set-up for his tray. Able to put red foam tubing on his utensils to increase his ease to eat. Called the kitchen to leave a message regarding need for light weight large handles. OT ADL-Grooming Comments OT Grooming Comments ROULA to help assist to with her right hand for completeness. OT ADL-Toileting Comments OT Toileting Comments not performed OT ADL-Bathing Comments OT Bathing Comments not performed M5 OT- IP IADL's Start: 05/07/22 12:13 Freq: Status: Active Protocol: Document 05/07/22 12:13 CGR (Rec: 05/07/22 12:37 CGR [id number]) OT-Instrumental Activities of Daily Living Deficits IADL Deficits Identified Deficits Home Safety Awareness Awareness of Need for Assistance at Home Decreased Awareness Ability to Problem Solve Emergency Unable to Problem Solve Situations Medication Management Medication Management Comments Concerns about pt's ability to perform consistently Money Management Money Management Comments Concerns about pt's ability to perform consistently Meal Preparation Meal Preparation Comments Concerns about pt's ability to perform consistently [employer] Assistant Principal [employer] Assistant Principal Comments Concerns about pt's ability to perform consistently M6 OT- IP Functional Cognition Start: 05/07/22 12:13 Freq: Status: Active Protocol: Document 05/22/22 11:50 [facility] (Rec: 05/22/22 13:40 [facility] [id number]) Cognitive Factors Limiting Selfcare Function Cognitive Ability Level of Alertness Alert Attention Span Ability Capable of Focused Attention, Capable of Sustained Attention Ability to Follow Commands Able to Follow One Step Commands Cognitive Comments Cognitive Assessment Comments Pt very talkative today and states having difficulty today as having voices in his head. Able to let pt's nurse know. M7 OT- IP Mobility and Balance Start: 05/07/22 12:13 Freq: Status: Active Protocol: Document 05/22/22 11:50 [facility] (Rec: 05/22/22 13:40 [facility] [id number]) OT- Bed Mobility Assessment Supine to Sit Supine to Sit Assist Minimal Assistance OT-Transfer Assessment Sit to and From Stand Sit to and from Stand Moderate Assistance,2 Person Assistance Technique Transfer Destination Bed,Chair Transfer Technique Stand Pivot Devices Transfer Assistive Devices Gait Belt,Front Wheeled Walker Comments Mobility Comments MODA to stand to FWW and still leans to the left at times due to tone on the right side. Pt able to take a few steps with MAX A x1 and MODA X 1, assist to balance, guide the FWW, and for his balance, vc to keep his feet apart and to slow down. OT- Balance Assessment Sitting Balance and Reactions Static Sitting Balance Ability Fair Dynamic Sitting Balance Ability Poor Standing Balance and Reactions Static Standing Balance Ability Poor Comments Other Balance Tests/Deviations/Treatment SBA to CGA while seated on the : edge of the bed. Pt able to sit upright while in the recliner. M8 OT- IP Objective Assessments Start: 05/07/22 12:13 Freq: Status: Active Protocol: Document 05/07/22 12:13 CGR (Rec: 05/07/22 12:37 CGR [id number]) OT Gross Range of Motion Upper Extremity Range of Motion ROM Impairments AAROM WFL OT Strength Upper Extremity Strength Assessment Bilaterally Impaired Comments Strength Comments R weaker than L R grossly 2/5 L grossly 2+ to 3-/5 OT- Coordination Assessment Upper Extremity Finger to Nose Test Bilateral UE Impaired Finger Tapping Test Bilateral UE Impaired OT-Muscle Tone Assessment Muscle Tone WNL Yes OT Sensation Assessment Edema Edema Absent M9 OT- IP Assessment and Plan Start: 05/07/22 12:13 Freq: Status: Active Protocol: Document 05/22/22 11:50 [facility] (Rec: 05/22/22 13:40 [facility] [id number]) OT Summary Assessment and Plan Potential Rehabilitation Potential Fair Analytic Complexity at Evaluation High Summary OT Impairments Pain,Strength,Balance, Coordination,Functional Cognition,Functional Mobility, Self-Feeding,Grooming,Dressing ,Toileting,Bathing,Toilet Transfers,Shower Transfers, Activity Tolerance Progress Towards Goals Progressing Toward Goals Assessment Summary Pt still needing extensive assist for all needs but less help. Pt would greatly benefit from continued therapy to help maximize his independence with his needs. Goals Self-Feeding Goal Standby Assistance Grooming Goal Minimal Assistance Dressing Goal Moderate Assistance Toileting Goal Moderate Assistance Bathing Goal Moderate Assistance Toilet Transfer Goal Minimal Assistance Shower Transfer Goal Minimal Assistance Days to Meet Goals 42 Frequency of Treatment Frequency Of Treatment Once a Day Treatment Plan OT Treatment Plan ADL Training,Functional Cognition Training,Functional Mobility,Neuromuscular Re- education,Therapeutic Exercises,Patient/Family Education,Discharge Planning Discharge Recommendations OT Discharge Recommendations SNF Rehab,LTAC Transportation Needs at Discharge Wheelchair/Cabulance
--- NOTE | 2022-05-22 15:15 | CM.DPC ---
DCP Note Cont: DCP contacted [facility]. Referral/clinicals sent over. They do have a private room available however, they are wanting to know the daily rate. DCP verbalized assessment is on May 29 but we are working on moving that up if we can. DCP spoke with [facility] and Rehab and they verbalized that they are looking for the referral and will call back if any further information is needed. DCP left a message for [facility] for Peg in Admissions. DCP left message again for [facility] to inquire about moving up assessment date. DCP to continue to work on case and contact facilities. Roya More RN/GISSELLE
--- NOTE | 2022-05-22 15:22 | CM.DPNOTE ---
Emailed clinicals to [email or web address] per Roya. Kristin Schwarz CM Assist.
--- NOTE | 2022-05-22 16:35 | SLP.IPNOTE ---
LUMBER ESTIMATOR and LUMBER ESTIMATOR consultant internship entered the room at 14:10 to work with the pt. Pt was found in bed in a reclined position with the lights off watching television. Pt was very talkative today and appeared to have a slightly stronger voice, however still at a reduced volume. Per nurse, he is eating his meals with no overt s/sx of aspiration at this time. Pt reported that he has no concerns with his speech and swallowing. Per the pt, he made a conscious effort to speak quietly a couple years ago due to it being so loud in [his] head. Pt did take a drink of his smoothie through the straw and did not demonstrate overt s/sx of aspiration in that moment. Pt had no further questions or concerns prior to LUMBER ESTIMATOR and LUMBER ESTIMATOR consultant internship exiting the room at 14:25.
[2022-05-22 18:00] VITALS: BP 138/78; PULSE 84; RESP 16; TEMP 37.6; O2SAT 95
[2022-05-22 21:36] VITALS: BP 127/84; PULSE 79; RESP 18; TEMP 36.6; O2SAT 97
[2022-05-22] MEDS: ATORVASTATIN 20 MG TABLET 40 MG PO (21:48)
[2022-05-23 05:08] VITALS: BP 143/87; PULSE 92; RESP 18; TEMP 36.6; O2SAT 95
--- NOTE | 2022-05-23 06:27 | PC.NURSE ---
Addendum entered by Abhijeet Trinidad R.N. 05/23/22 06:56: Pt mom is Bridgette Ramesh and her phone number in the [place] is [phone] Original Note: Pt mom called this morning from the [place], she spoke to Fahad and will be calling later on to speak to the social group worker. According to her Fahad is still in contact with his ex- and his son. Pt has been more awake tonight and conversing and joking with the staff.
[2022-05-23] MEDS: ENOXAPARIN 40 MG/0.4 ML SYRINGE SUBCUT (09:03)
[2022-05-23] MEDS: NICOTINE 7 MG PATCH TOP (09:03)
[2022-05-23] MEDS: SODIUM CHLORIDE 0.9% FLUSH 10 ML IV (09:04)
[2022-05-23] MEDS: ONDANSETRON 4 MG/2 ML INJ IV (09:07)
--- NOTE | 2022-05-23 09:29 | DIET.CONS ---
Dietary Consultation Note Admission Date: 05/01/2022 04:28 Assessment: Pt continues to eat better than during early admission with POs ~75% with 1:1 assistance. Sending light large handled silverware for pt to practice hand over hand feeding. Pt with poor POs during early hospitalization due to lethargy and substance withdrawal. Ht: 177.8 cm Wt: 58 kg (-8% in 2w, severe) BMI: 18.3 UBW: 72kg (-19.5% below UBW) Last BM: 05/22/22 (05/22/22 12:00) MNA: 6 Wilmer Score: 16 Diet: 05/14/22 Dinner Dysphagia Diet Diet Modifications: protein smoothie tid, 1/2 portion large silverware Liquid consistency: Normal/Thin Food texture: Dysphagia Mechanical Soft Nutrition Percent Meal Consumed 75% 05/22/22 12:00 Percent Meal Consumed 75% 05/21/22 18:04 Percent Meal Consumed 50% 05/21/22 12:34 Labs: RBC 5.70 X10^6/uL (4.5-5.9) 05/19/22 06:40 Hgb 12.6 g/dL (13.5-17.5) L 05/19/22 06:40 Hct 39.6 % (41-53) L 05/19/22 06:40 Creatinine 0.49 mg/dL (0.66-1.25) L 05/19/22 06:40 Hemoglobin A1c 5.8 % (4.0-6.0) 05/01/22 06:50 Iron 144 ug/dL (49-181) 05/19/22 16:00 % Saturation 32 % (20-50) 05/19/22 16:00 Nutrition Diagnosis: Severe Acute Protein Calorie Malnutrition r/t inadequate POs during early hospitalization aeb 8% unintentional weight loss in 2w (severe), BMI 18.3, pt c hx IVDU active withdrawal during early hospitalization limiting PO intake, pt with self-feeding deficits and 1:1 feeding requirements. Interventions: Continue supportive MNT c tid protein smoothies, 1:1 feeding, light large handled silverware. EER: 2,000kcals (35kcal/kg), 85g PRO (1.5g/kg) Monitoring/Evaluations: POs, ONS tolerance, daily weights Electronically Signed by: Michaela Alicea 05/23/22 09:29 Clinical Dietitian [address] [address]
--- NOTE | 2022-05-23 10:21 | OT.IPNOTE ---
Attempted to set up schedule to see pt this morning, pt has been vomiting and requesting to be seen possibly later in PM if feeling better.
--- NOTE | 2022-05-23 10:25 | PT-IP ANOTE ---
Pt refused therapy due to nausea/vomiting.
[2022-05-23 10:57] VITALS: BP 147/84; PULSE 87; RESP 19; TEMP 36.1; O2SAT 95
--- NOTE | 2022-05-23 11:53 | CM.DPC ---
Addendum entered by CARLO Leonardo 05/23/22 12:08: ADD: Discussion from PT in rounds that pt was more talkative yesterday and was endorsing hx and current auditory hallucinations/voices. Hospitalist agreeable with Psych Consult orders and SW called [facility] and updated on orders placed for Psych Consult and likely Dr. Richmond today and provided some information regarding concerns. BF Original Note: CTP [facility] assessment SW received a call from pt's mother Bridgette Ramesh and her phone number in the [place] is [phone] and she confirms she is living abroad and has spoken to son and mother would like to help however I can from the [place]. Mother states pt has a sister who lives with in [place] and sister is well established and connected and SW updated her on the barriers to SNF placement and due to pt's current slow progress and 1-2PA with mobility and ADL's not safe for d/c back home. Mother in agreement and aware of the process for Medicaid LTC as pt likely would not rehab quickly in SNF and high likelihood he will need LTC before becoming more independent. Mother inquired how they can help and SW encouraged her to talk with other family members for financial support if pt could be accepted into SNF under [employer] while awaiting LTC placement if family were willing to agree to pay privately if [employer] stopped covering SNF and his LTC plan was not set up yet. Mother willing to discuss this with family and requests SW to call [employer] contracted SNFs to get a sense of in-general, how long [employer] typically auth's SNF rehab. MELISA called [facility] admissions and confirmed that [employer] typically will auth5-7 days at SNF initially and then request updated clinicals to auth another 2-3 days at a time. Families can also appeal [employer] denial of auth which can allow another few days at SNF and have been able to get the decision overturned. SW received a call from Maria Fernanda ([phone] or [email or web address] ) with [facility] stating she had a cancellation on her schedule and can now do pt's LTC assessment today around 1030. She confirms she has clinicals faxed on pt from his admission. MELISA met bedside with pt and updated on his mother's call and also the upcoming assessment for LTC and pt confirms he has had nausea and vomiting today (possible hx of gastroparesis) but willing to participate in assessment and SW made sure room phone was accessible and updated RN. Return call from Maria Fernanda stating she was not able to get very far in assessment with pt as he began feeling ill again. SW spent 45 min on the phone providing information on pt towards his assessment and Maria Fernanda will get final questions answered by nursing staff. Maria Fernanda does confirm that once his assessment is complete, her structural steel erection supervisor will need to review and approve and this can potentially take about a week. MELISA confirmed Maria Fernanda has email access with Care Management and CC'd [email or web address] for when she completes assessment and can email. Plan: MELISA to follow closely for completion of pt's HCS/HS LTC assessment and f/u with prior faxed [facility] and other potential LTC placement with slight possibility of SNF prior to LTC since HCS assessment has been initiated today. CARLO Leonardo
--- NOTE | 2022-05-23 11:59 | SLP.IPNOTE ---
LEAD SHOP OPERATOR and LEAD SHOP OPERATOR software development intern entered the room at 10:35 to check in on the pt. Per nurse report, the pt had been vomiting since 8:15 this morning until 9:30. The pt did not consume breakfast as he felt sick, but did eat a good portion of dinner the previous night. Medication had not been given to him yet due to swallow safety and nausea. Upon entering the room, the pt had the lights off and was on the phone. The pt did not want to participate in PO trials due to nausea but did allow this LEAD SHOP OPERATOR to perform a laryngeal palpation to assess his swallow and strength. Pt's swallow strength appeared in tact with adequate hyolaryngeal excursion and anterior hyoid movement. Pt may attempt to take medications in carrier if he is feeling less nauseous and alert. If medications can be broken or opened, that may be more helpful for the pt at this time. Pt reported he felt he may have eaten too much or too fast yesterday which could have caused him to feel nauseous. Pt had no further questions/concerns prior to LEAD SHOP OPERATOR and LEAD SHOP OPERATOR software development intern exiting the room at 10:45.
--- NOTE | 2022-05-23 12:21 | P.PN_ITS ---
Subjective Subjective Date Patient Seen: 05/23/22 Interval history: Hospitalist follow-up visit. Patient reporting no changes to function of the right upper extremity.? Still having decreased use of his right upper extremity. Patient's new complaint today is nausea vomiting. This was subsequent to taking a drink of tea for the 1st time in months. He said he use a straw for the tea when the tea hit the back of his throat it made him nauseous. Then he vomited. Unclear why he drank is see that way. Awaiting placement.? Not complaining of fever chills or diaphoresis.? No chest pain palpitations.? No shortness of breath wheezing or cough.? No abdominal pain constipation or diarrhea.? Able to move all extremities but significant decreased strength and use of the right upper ext remity. Nursing reports concern that patient has possibly been hallucinating. Will consult Psychiatry. Exam Vital Signs (past 8 hours): - 05/23/22 05:08 05/23/22 10:57 Temperature 97.9 F 96.9 F L Pulse Rate 92 H 87 Respiratory Rate 18 19 Blood Pressure 143/87 H 147/84 H Pulse Oximetry 95 95 Oxygen Flow Rate 0 0 Oxygen Delivery Method Room Air Oxygen Flow Rate 0 Narrative Exam Narrative: GEN: ? Middle-aged male,Alert and oriented x 3,? speaks with a very soft voice which is difficult to understand somewhat due to his accent, NAD.? More distraught today due to the incident with the tea. HEENT:NC, Face symmetric.? Pupils equal reactive to light.? Extraocular movements normal.? Neck is supple.? Trachea midline. CHEST:? Chest is clear to auscultation.? No wheezes or crackles. CV:? Heart sounds S1 and S2 with no extra sounds or murmurs. ABD:? Soft nontender bowel sounds normal.? No masses organomegaly. EXTR: warm, well perfused.? Old scars to the BLEs w/some discoloration. 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 Grandmother Myocardial infarction Grandfather No problems noted. Social History household members: friend(s) Smoking Status: Current some day smoker alcohol intake: current Assessment & Plan Assessment & Plan narrative: ?1.? Weakness Patient appears to be chronically debilitated.? No evidence of new stroke on 2 different brain MRIs.? C-spine MRI did reveal some chronic pathology but no acute cord compression.? Orthopedic surgery consulted and recommended outpatient follow-up with Neurosurgery.? Acetylcholine antibodies have been sent to evaluate for underlying myasthenia but they are pending.? DIXIE negative.? Hepatitis panel is also pending.? There does appear to be some volitional component to his symptoms.? He does admit to depression and just recently starte d on Cymbalta.? Also has started on gabapentin to help with chronic pain.? Cymbalta initiated 05/18/22.? Tramadol was given for pain which he does not feel was helpful.? Given his substance use history, patient not being given opiates.? Suboxone would not be appropriate either. ? 2. Altered mental status / metabolic encephalopathy Patient appears to be at baseline.? ? 3. Acute respiratory failure new line secondary to pneumonia.? This has been treated and resolved. ? 4. Hypertension Presently normotensive, not on therapy. ? 5. Hyperlipidemia Continue atorvastatin ?6. Polysubstance dependence Although patient was intoxicated on admission, he has been?hospitalized for many days with no drug use.? There was evident concern early on that people were bringing controlled substances into the hospital.? However,? he has had restricted visitation since that time.? Suboxone would not be appropriate at this time. ? 7.? Oral thrush Patient received 7 days of oral fluconazole with improvement.? LFTs were rising and it was subsequently discontinued. ?8. Prior stroke with residual right-sided weakness Patient remains on atorvastatin 40 mg, aspirin 81 mg. 9. Microcytic anemia MCV is 69.5, which is quite low.? Hemoglobin is 12.6.? I am uncertain if he has any known history of thalassemia.? Iron studies were within normal limits.?Has been sent for beta thalassemia lab. 10. Transaminitis LFTs have been elevated.? HIV was negative.? Hepatitis-C panel pending. 11. Nursing concerned that the patient has been hallucinating. Psychiatry consult ordered. Patient also appears to have a personality that may embellish his symptoms including the right upper extremity weakness, the need to vomit and the subsequent complaint and problem of not eating enough. Per dietitian the patient currently is in the status of severe malnutrition. Perhaps psychiatry can and lightening in regards to the component of his personality affecting and persisting his symptoms. Patient is awaiting placement. Patient having an adequate improvement requiring active in continuous management and further consultation with Psychiatry. ? 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 Quality VTE Deep Vein Thrombosis/Pulmonary Embolism Present on Admission: No
--- NOTE | 2022-05-23 13:00 | OT.IPNOTE ---
Attempted to see pt again for OT and pt states not feeling well. Therefore pt wanting to pass on doing therapy today.
--- NOTE | 2022-05-23 13:56 | P.CONS_ITS ---
History of Present Illness Consult details Date Patient Seen: 05/23/22 Time Patient Seen: 13:15 Chief complaint: Suspected right sided CVA Reason for consult: Possible hallucinations and manipulative behavior Requesting provider: Lauryn Peck Narrative: REFERRAL INFORMATION This is the latest of several psychiatric evaluation for this 62 year male referred by Dr. Peck on the inpatient service for evaluation of mood symptoms, hallucinations, and assistance and recommendations for possible manipulative behavior. RECORDS REVIEW The patient?s referral documents, medical records and intake questionnaire were reviewed as part of this evaluation. CHIEF COMPLAINT ?I feel really weak.? HISTORY OF PRESENT ILLNESS The patient is a 62-year-old male, current smoker, long-time IV drug user, who has a history of a prior right-sided CVA in 2016 and currently lives a somewhat subsistence existence on [facility]. He presented to the emergency department over 3 weeks ago with worsening weakness and multiple falls. The patient was extremely lethargic, unable to provide a coherent history and speaks in a soft, whispered voice that is extremely difficult to understand. He is well-known to the ED department here in normally walks with a cane but complained of increasing numbness and tingling and weakness in both upper and lower extremities. He was diagnosed with a suspected TIA versus stroke, and admitted to the inpatient service for further workup of a suspected CVA. During the course of his admission, workup for acute CVA appears to have been negative but MRI scan of his neck showed some evidence of multiple degenerative discs disorder and cervical stenosis. He continued to complain of weakness in orthopedic consultation was obtained. In addition, it appears that because of the length of his admission he was able to be detoxed from his IV heroin habit.. There was apparently some evidence t hat others were bringing him drugs, but since visitation was restricted this no longer appears to be the case. Social work was consulted in order to find placement as his functional abilities with respect to weakness or still quite poor. He often complains of difficulty swallowing, eating, and maintaining adequate nutrition. He continues to complain of right-sided weakness as well as global overall weakness and difficulty functioning. He reports a history of depression and has use sertraline in the past but was not clear about how helpful it was despite stating that he took it for over 5 ye ars. The home team decided to discontinue sertraline and started him on duloxetine targeting both depression and chronic pain. When asked specifically about current psychiatric symptoms, the patient does admit to feeling depressed, sad, down, and endorses lack of motivation, poor appetite, difficulty focusing and concentrating, but denies current suicidal or homicidal ideation, intent, or plan. He endorses some generalized anxiety but denies any history of panic attack. He denies symptoms of psychosis including hallucinations, delusions, ideas of reference or thought disorder. PAST PSYCHIATRIC HISTORY * Diagnoses: Previous history of depression circa 2001 * Inpatient: Denies any inpatient admissions * Outpatient: Reports being treated as an outpatient for depression for anywhere between 5-10 years several years ago. Notes being treated with sertraline in the past * Suicide Attempts: Denies any prior suicide attempts PREVIOUS PSYCHIATRIC MEDICATION TRIALS Treated with sertraline in the past otherwise denies any other psychotropic medications CURRENT PSYCHOTROPIC MEDICATIONS Duloxetine Gabapentin FAMILY HISTORY * Maternal: None. * Paternal: Never knew his biological father * Siblings: None known SUBSTANCE USE HISTORY * Tobacco: Current smoker prior to admission * Alcohol: Significant history of alcohol abuse in the past. * Drugs: Patient endorses in admits to using almost every drug known, but drug of choice in the last several years has been IV heroin. DEVELOPMENTAL AND SOCIAL HISTORY * Family Constellation/Environment: The patient is the 3rd of 5 children born to a [facility] family. He was raised by his mother and stepfather who started out quite poor but built a [employer] making business and ended up quite wealthy. * Childhood Trauma: The patient was not clear about whether not he sustained any childhood trauma. * Developmental milestones: The patient reached normal developmental milestones. * Education: Patient was an adequate student in school and attended boarding school in [place]. He later joined the [employer] and sailed all over the world. 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 * Relationships: Has had girlfriend in the past but never and no children * Current Living: Has been living on [facility], unclear on how he has been supporting himself. * Support: Unclear * Legal: No current legal difficulties. HISTORY * [employer] * Deployments: N/A * Combat Exposure: N/A * Blast Exposure: N/A Meds Home Medications and Allergies Home Medications Medication Instructions Recorded Confirmed Type sertraline 100 mg tablet (Zoloft) 100 mg PO DAILY 05/11/21 05/02/22 History acetaminophen 325 mg tablet 650 mg PO Q6HR PRN Fever/Mild Pain 05/12/21 05/01/22 Rx (1-3) #30 tabs fluticasone 250 mcg-salmeterol 50 1 inh inhalation BID #1 ea 05/12/21 05/02/22 Rx mcg/dose blistr powdr for inhalation albuterol sulfate 90 mcg/actuation 1 puff inhalation BID 05/01/22 05/01/22 History aerosol inhaler tiotropium bromide 2.5 2 puff inhalation DAILY 05/01/22 05/01/22 History mcg/actuation mist for inhalation (Spiriva Respimat) folic acid 1 mg tablet 1 mg PO DAILY #30 tabs 05/10/22 Rx Allergies Allergy/AdvReac Type Severity Reaction Status Date / Time amoxicillin [AMOXICILLIN] Allergy Unknown DOES NOT Verified 04/30/22 17:34 REMEMBER SOMETHING NOT GOOD Penicillins [PENICILLINS] Allergy Unknown CAN'T Verified 04/30/22 17:34 REMEMBER RX Review of Systems Review of Systems ROS: Yes All systems reviewed with the patient and are negative except as otherwise documented Exam Vital Signs (past 8 hours): - 05/23/22 10:57 Temperature 96.9 F L Pulse Rate 87 Respiratory Rate 19 Blood Pressure 147/84 H Pulse Oximetry 95 Oxygen Flow Rate 0 Oxygen Delivery Method Room Air Oxygen Flow Rate 0 Narrative Exam Narrative: MENTAL STATUS EXAM * Appearance: The patient is a short-statured and very thin male seen lying in his hospital bed. He exhibits numerous needle in every area of exposed extremities. * Grooming: Adequately groomed for being in the hospital. Appears to have poor dentition. * Behavior: Calm and cooperative with the evaluation * Eye contact: Good eye contact * Gait: Not tested * Speech: Extremely soft-spoken and difficult to hear. Will not speak up. * Mood: ?Depressed? * Affect: Pleasant and cooperative but mildly dysphoric. Congruent with content, normal range and reactivity * Thought Process: Linear, logical, and goal directed for the most part, but also extremely circumstantial at times and seems to enjoy long-winded stories. * Thought Content: Denies suicidal ideation, denies homicidal ideation, intent or plan; and there was no evidence of a formal thought or perceptual disturbance. * Attention: Attentive to interview * Orientation: Oriented to person, place, time, and circumstance * Memory: Intact for interview, not formally tested * Insight: Fair * Judgment: Fair Objective Labs Result Diagrams: 05/23/22 21:21 05/23/22 21:21 [facility] Medical History (Updated 05/24/22 @ 14:48 by Julito Richmond MD) Asthma Chronic back pain greater than 3 months duration Closed intertrochanteric fracture of left femur Depression Drug abuse, IV History of CVA (cerebrovascular accident) Surgical History History of hernia repair Family History Father Unknown family medical history Mother No problems noted. Grandmother Myocardial infarction Grandfather No problems noted. Social History household members: friend(s) Tobacco & Substance Use Smoking Status: Current some day smoker alcohol intake: current Assessment & Plan Assessment and plan (1) Depression: Qualifiers: Depression Type: unspecified Qualified Code(s): F32.A - Depression, unspecified Status: Acute (2) Polysubstance dependence in early, early partial, sustained full, or sustained partial remission: Status: Acute Plan ASSESSMENT/MEDICAL DECISION MAKING GUILLERMINA SZYMANSKI is a 62-year-old male with a very long history of severe polysubstance dependence in addition to prior CVA, right-sided hemiparesis, hypertension, hyperlipidemia, other significant medical problems. The patient endorses significant symptoms of depression as well. Given his recent enforced detox by this admission, he appears to be in the very early stages of recovery from his heroin drug habit. However, this was not undertaken by choice but by the circumstance of his admission. Thus, he still has and addicts mind set. He also appears to have a rather passive dependent approach to his care and his symptoms. Given that he appears to be demonstrating some initial improvement, would encourage nursing to be more proactive in getting him up in about, taking more responsibility for self-care, particularly with respect to nutrition. RECOMMENDATIONS: 1. Concur with starting antidepressant and anti anxiety medication. Duloxetine as a reasonable choice for both as well as covering some of his complaints regarding chronic pain. 2. Concur with trial of gabapentin as a non-addictive alternative to benzodiazepines for anxiety. Note, would be cautious given potential side effects of ataxia, dizziness, and vomiting. 3. Encourage increased activity as tolerated including increased responsibility for self-care to counter developing passive dependent on nursing staff for everything. 4. Communicate expectation of improvement and discharge. 5. Will continue to follow up periodically with you as needed. Time Spent With Patient Time with patient: 30 to 49 minutes with 50% spent counseling/coordinating care
--- NOTE | 2022-05-23 14:29 | P.PN_ITS ---
Subjective Subjective Date Patient Seen: 05/23/22 Interval history: Interim history. Patient began to have acute persistent vomiting with some blood tinged vomitus. Given Ativan 1 mg IV. Made NPO. IV infusion to start at D5 normal saline at 125 mL/hour. Pantoprazole 40 mg IV b.i.d. with 1st dose now. Reglan 10 mg IV every 6 hours. Will do stat blood work of CBC and chemistry panel. Exam Vital Signs (past 8 hours): - 05/23/22 10:57 Temperature 96.9 F L Pulse Rate 87 Respiratory Rate 19 Blood Pressure 147/84 H Pulse Oximetry 95 Oxygen Flow Rate 0 Oxygen Delivery Method Room Air Oxygen Flow Rate 0 Narrative Exam Narrative: Patient alert but in acute distress. Continuing to vomit. Respiratory: Chest clear to auscultation. Gastrointestinal: Soft. Nondistended. Objective Labs Result Diagrams: 05/19/22 06:40 05/19/22 06:40 [facility] Medical History Asthma Chronic back pain greater than 3 months duration Closed intertrochanteric fracture of left femur Depression Drug abuse, IV History of CVA (cerebrovascular accident) Surgical History History of hernia repair Family History Father Unknown family medical history Mother No problems noted. Grandmother Myocardial infarction Grandfather No problems noted. Social History household members: friend(s) Smoking Status: Current some day smoker alcohol intake: current Assessment & Plan Assessment & Plan narrative: Acute onset of vomiting with blood. Provide intravenous fluid and NPO status. Monitor labs. Treat vomiting and provide intravenous PPI. Time Spent With Patient Critical Care time: I spent a total of [] minutes of critical care time on this patient's care today; this time is exclusive of procedural time. Quality VTE Deep Vein Thrombosis/Pulmonary Embolism Present on Admission: No
[2022-05-23] MEDS: LORazepam 2 MG/ML INJ 1 MG IV (14:40)
[2022-05-23] MEDS: DEXTROSE 5%-0.9% NS 1,000 ML 125 ML IV ×2 (14:43→22:45)
--- NOTE | 2022-05-23 15:00 | DI.RAD.S_ITS ---
PROCEDURE: XR CHEST 1V INDICATIONS: hyperemesis TECHNIQUE: One view of the chest was acquired. COMPARISON: [facility], CR, XR CHEST 1V, 05/03/2022, 10:08. FINDINGS: Surgical changes and devices: Right PICC line is present with distal tip projecting over the proximal SVC. Lungs and pleura: Lungs are clear. No pleural effusions or pneumothorax. Mediastinum: Mediastinal contours appear normal. Heart size is normal. Bones and chest wall: No suspicious bony lesions. Overlying soft tissues appear unremarkable. IMPRESSION: No acute pulmonary process. Dictated by: Kayce Lazaro M.D. on 05/23/2022 at 17:01 Approved by: Kayce Lazaro M.D. on 05/23/2022 at 17:01
--- NOTE | 2022-05-23 15:01 | DI.CT.S_ITS ---
PROCEDURE: CT ABDOMEN PELVIS WO CON INDICATIONS: hyperemesis TECHNIQUE: Axial sections were acquired from the lung bases to the pubic symphysis. Coronal and sagittal reformats were performed. For radiation dose reduction, the following was used: automated exposure control, adjustment of mA and/or kV according to patient size. COMPARISON: None. FINDINGS: Image quality: Excellent. Lung bases: Unremarkable. Heart: No significant findings. URINARY: Right Kidney: No stones or hydronephrosis. Right Ureter: No hydroureter. Left Kidney: No stones or hydronephrosis. Left Ureter: No hydroureter. Bladder: Normal wall thickness. No stones. Right lateral bladder diverticulum. ABDOMEN: Liver: Unremarkable. Gallbladder: Unremarkable. Biliary ducts: Unremarkable. Pancreas: Unremarkable. Spleen: Unremarkable. Adrenal Glands: Unremarkable. Stomach and Bowel: Stomach, small bowel loops, and colon are nonobstructive. Colonic diverticular present without inflammatory change. Appendix is normal. Peritoneum: No abnormal intraperitoneal fluid. No free air. Ventral Wall: No hernia. Abdominal Nodes: No enlarged retroperitoneal or mesenteric lymph nodes. Vessels: Aorta and inferior vena cava are normal in size. PELVIS: Pelvic Organs: Unremarkable. Pelvic Nodes: Unremarkable. Miscellaneous: No inguinal hernias are seen. Bones: Left hip femoral fixation. IMPRESSION: No acute intra-abdominal or pelvic process. Dictated by: Kayce Lazaro M.D. on 05/23/2022 at 16:54 Approved by: Kayce Lazaro M.D. on 05/23/2022 at 16:56
[2022-05-23] MEDS: METOCLOPRAMIDE 10 MG/2 ML INJ IV ×2 (15:16→21:21)
[2022-05-23] MEDS: SCOPOLAMINE 1 PATCH TOP (15:20)
--- NOTE | 2022-05-23 16:34 | PC.NURSE ---
1345 Checked on Pt and found Pt to have hyperemesis - gagging and gasping. Pt had been incontinent of stool as well. Cleaned up Pt - Pt continued to both vomit and dry heave. Pt became short of breath and stated he was dying. Called Dr. Peck to the room immediately and orders were written and carried out. Pt continued to dry heave and gag with occasional foamy emesis and small amounts of interspersed blood tinged foam. Pt was unable to clear secretions independently and 1:1 care was provided to prevent aspiration. Pt was given meds and a scopalamine patch as ordered and his vomitting and dry heaving eventually ceased and Pt was able to fall asleep. Close observation continues to be provided. O2 sat is 95% on RA and aspiration precautions enacted. Bed alarm on for safety.
[2022-05-23 18:00] VITALS: PULSE 74; O2SAT 98
[2022-05-23] MEDS: PANTOPRAZOLE 40 MG VIAL IV (21:21)
[2022-05-23 21:31] VITALS: BP 133/83; PULSE 74; RESP 18; TEMP 36.6; O2SAT 95
[2022-05-23 21:32] LABS: Add Manual Diff / Slide Review NO; Basophils Absolute Auto 0 /uL (0-100); Basophils Percent Auto 0.3 % (0-2); Eosinophils Absolute Auto 0 /uL (0-450); Eosinophils Percent Auto 0.3 % (2-4); Hematocrit 34.6 % (41-53); Lymphocytes Absolute Auto 1700 /uL (1100-4500); Lymphocytes Percent Auto 22.2 % (25-40); Mean Corpuscular HGB Conc 31.7 % (30-36); Mean Corpuscular Hemoglobin 22.7 PG (26-34); Mean Corpuscular Volume 71.4 fL (80-100); Monocytes Absolute Auto 600 /uL (0-900); Monocytes Percent Auto 7.5 % (3-14); Neutrophils Absolute Auto 5200 /uL (1500-7000); Neutrophils Percent Auto 69.7 % (50-75); Platelet Count 289 X10^3/uL (150-400); Red Blood Cell Count 4.84 X10^6/uL (4.5-5.9); White Blood Cell Count 7.5 X10^3/uL (4.5-11.0)
[2022-05-23 21:51] LABS: Alanine Aminotransferase 115 IU/L (<50); Alkaline Phosphatase 63 U/L (38-126); Aspartate Aminotransferase 61 IU/L (17-59); BUN Creatinine Ratio 41.4 (6-22); Bilirubin Total 0.4 mg/dL (0.2-1.3); Blood Urea Nitrogen 12 mg/dL (9-20); Calcium 7.2 mg/dL (8.4-10.2); Carbon Dioxide 26 mmol/L (22-32); Chloride 111 mmol/L (98-107); Estimated Glomerular Filt Rate > 60 mL/min (>60); HEMOLYSIS 36 (0-50); Sodium 144 mmol/L (137-145)
[2022-05-23 22:01] LABS: Glucose 694 mg/dL (80-110)
[2022-05-24] MEDS: LORazepam 2 MG/ML INJ 0.5 MG IV ×2 (00:34→20:51)
[2022-05-24] MEDS: ONDANSETRON 4 MG/2 ML INJ IV (00:34)
[2022-05-24] MEDS: POTASSIUM CHLORIDE IN WATER 10 MEQ/100 ML PIGGYBACK 100 MEQ IV ×4 (03:40→06:53)
[2022-05-24] MEDS: METOCLOPRAMIDE 10 MG/2 ML INJ IV ×3 (03:49→22:33)
[2022-05-24 06:00] VITALS: BP 144/82; PULSE 69; RESP 18; TEMP 36.1; O2SAT 99
[2022-05-24] MEDS: DEXTROSE 5%-0.9% NS 1,000 ML 125 ML IV ×3 (06:53→22:34)
[2022-05-24] MEDS: NICOTINE 7 MG PATCH TOP (08:49)
[2022-05-24] MEDS: ENOXAPARIN 40 MG/0.4 ML SYRINGE SUBCUT (08:49)
[2022-05-24] MEDS: PANTOPRAZOLE 40 MG VIAL IV ×2 (08:50→20:52)
[2022-05-24] MEDS: DULOXETINE 30 MG CAPSULE PO ×2 (10:19→10:21)
[2022-05-24] MEDS: ASPIRIN EC 81 MG TABLET PO ×2 (10:19→10:21)
[2022-05-24] MEDS: MULTIVITAMIN 1 TABLET 1 TAB PO ×2 (10:20→10:21)
[2022-05-24] MEDS: FOLIC ACID 1 MG TABLET PO (10:21)
[2022-05-24] MEDS: GABAPENTIN 300 MG CAPSULE PO ×3 (10:21→20:53)
[2022-05-24] MEDS: ACETAMINOPHEN 325 MG TABLET PO ×3 (10:21→18:53)
--- NOTE | 2022-05-24 10:47 | ST.IPDYTX ---
Visit Care Team Role Provider Type Amarilis Alcantara MD Other Providers Physician Specialty: Orthopedics Orthopedic Surgery Address: [address] [place], [address] Email: [email or web address] Julito Richmond MD Other Providers Physician Specialty: Psychiatry Address: [facility], [address], [place], [address] Email: [email or web address] Kenney Joshi MD Family Provider Non-Staff Primary Care Provider Specialty: Family Practice Address: [address] [facility], [address], [place], [address] Email: Richard Hannon DO Emergency Provider Physician Referring Provider Specialty: Emergency Medicine Address: [address] [place] [address], [address] Email: [email or web address] JONATHAN Sampson Admit Provider Physician Attending Provider Specialty: Internal Medicine Address: [address] [place] [address], [address] Email: [email or web address] SURVEY COMPILER Dysphagia Treatment SUR[employer] COMPILER Clinical Instructor Line Start: 05/07/22 11:09 Freq: Status: Active Protocol: Document 05/17/22 11:23 MG (Rec: 05/17/22 11:24 MG [id number]) Clinical Instructor Signature Clinical Instructor Clinical Instructor Yes: Yarelis Foster MA, [facility]SUR[facility] COMPILER SURVEY COMPILER Dysphagia Treatment Start: 05/07/22 09:45 Freq: Status: Active Protocol: Document 05/24/22 10:38 MG (Rec: 05/24/22 10:47 MG [id number]) Dysphagia Treatment Session Time Visit Start Time 09:55 Visit Stop Time 10:25 Total Visit Minutes 30 Setting Assessment Location Acute Care Visit Type Note Type Treatment Note Next Note Type Next Note Type Treatment Note Patient Information Identification Type Name,ID Wristband Subjective Observations Pt was reclined in bed upon SURVEY COMPILER arrival. Pt was repositioned into upright position for PO trials. Per notes, yesterday the pt was very nauseous and continued to vomit so he was placed on an NPO diet until ST could re- evaluate. In speaking with the pt's nurse this AM, the pt was no longer nauseous and reported to be starving. Treatment Liquids Trialed Ice chips,Thin Solids Trialed Puree,Dysphagia Mechanical Administration Type Tea Spoon,Cup Single Sip,Cup Consecutive Sips,Straw, Dependent Feeding Oral Strategies Upright at 90 degrees, Controlled Bite/Sip Size Pharyngeal Strategies Sitting Upright (90 deg),Small Bites and Sips Treatment Activities Pt was eager for food/drink this AM. Laryngeal palpation prior to PO trials indicated adequate movement. Needed verbal reminders to pace himself on taking sips from the straw of thin liquid (i.e. , water). During liquid trials , no overt s/sx of aspiration was noted. On solid trials of puree and dysphagia mechanical , no overt s/sx of aspiration were noted as well. No voice change heard throughout the session time. The pt reported things were going the right way when asked and requested more food/drink. SURVEY COMPILER and nurse administered pt's pills with carrier (i.e., applesauce) and the pt took the medication with no concerns noted. SURVEY COMPILER noted the pt was fatiguing quicker than usual from mastication. Assessment Patient Response to Treatment Good Rehab Potential Good Assessment of Improvement Pt appeared to have no concerns when tolerated solids /liquids at this time. Recommend to implement diet with the exception of no allowing some dysphagia advanced options as team had previously due to current fatigue levels. Will continue to assess and follow for diet safety and tolerance. Diet Recommendations Recommendations Continue Current Diet Liquids Order Thin Diet Order Dysphagia Mechanical Medication Recommendations As Tolerated,Whole in Carrier Additional Dietary Needs Single Sips,Controlled Sips,1: 1 Supervision,Encourage to Self-Feed,Reminders to Use Strategies Aspiration Precautions Recommended Precautions Upright at 90 Degrees,Frequent Rest Periods,Small Bites/Sips ,Chin Tuck,Check for Pocketing Treatment Plan Placement Recommendation after Discharge Retirement Facility Appropriate for Continued Therapy Yes Therapy Recommendations Continue to see 1x daily over course of hospital stay to monitor progress and further assess/treat deficits as needed. Dysphagia Goals Pt to participate in ongoing evaluation of swallow safety with diet advancement as appropriate. Pt will safely tolerate least restrictive diet to meet his nutrition and hydration needs
--- NOTE | 2022-05-24 10:59 | P.PN_ITS ---
Subjective Subjective Interval history: Hospital hospitalist follow-up visit. Patient feeling much better today. Actually eager to try some oral intake. No nausea vomiting or diaphoresis. No chest pain or wheezing. No shortness of breath. No abdominal pain constipation or diarrhea. Able to move all extremi ties. Not complaining of weakness other than the baseline weakness right upper extremity. There was an episodic measurement of glucose last evening of 694. This was reconfirmed to be within normal range and thought to be an error. Patient having no signs or symptoms of hyperglycemia at the time it was taken. Patient having no new complaints today. Exam Vital Signs (past 8 hours): - 05/24/22 06:00 Temperature 97.0 F L Pulse Rate 69 Respiratory Rate 18 Blood Pressure 144/82 H Pulse Oximetry 99 Oxygen Flow Rate 0 Oxygen Delivery Method Room Air Oxygen Flow Rate 0 Narrative Exam Narrative: Patient alert oriented to time place and person. HEENT: Pupils equal reactive to light. Extraocular movements normal. Neck is supple. Trachea is midline. Neck nodes are nonpalpable. Cardiovascular: Heart sounds S1 and S2 no extra sounds or murmurs. Peripheral pulses equal bilaterally. No pedal edema. Respiratory: Adequate air entry throughout the lung trotter no wheezes or crackles. Gastrointestinal: Abdomen soft. Nontender. Bowel sounds normal. Musculoskeletal: Decreased strength right upper extremity. Able to move all extremities fell asleep. Skin: Old scars from IV/skin popping drug use. No new lesions or rashes. Objective Labs Result Diagrams: 05/23/22 21:21 05/23/22 21:21 Labs: Laboratory Results - last 24 hr 05/23/22 05/23/22 21:21 21:21 WBC 7.5 RBC 4.84 Hgb 11.0 L Hct 34.6 L MCV 71.4 L MCH 22.7 L MCHC 31.7 RDW 21.0 H Plt Count 289 Neut % (Auto) 69.7 Lymph % (Auto) 22.2 L [place] % (Auto) 7.5 Eos % (Auto) 0.3 L Baso % (Auto) 0.3 Neut # (Auto) 5200 Lymph # (Auto) 1700 [place] # (Auto) 600 Eos # (Auto) 0 Baso # (Auto) 0 Nucleated RBCs Cancelled Hypersegmented Neuts Cancelled Hypogranular Neuts Cancelled Reactive Lymphocytes Cancelled Smudge Cells Cancelled Other Cell Type Cancelled Toxic Granulation Cancelled Toxic Vacuolation Cancelled Dohle Bodies Cancelled Jayde Rods Cancelled WBC Morphology Comment Cancelled Platelet Estimate Cancelled Clumped Platelets Cancelled Plt Morphology Comment Cancelled RBC Morphology Cancelled Dimorphic RBCs Cancelled Polychromasia Cancelled Hypochromasia Cancelled Poikilocytosis Cancelled Basophilic Stippling Cancelled Anisocytosis Cancelled Microcytosis Cancelled Macrocytosis Cancelled Spherocytes Cancelled Pappenheimer Bodies Cancelled Sickle Cells Cancelled Target Cells Cancelled Tear Drop Cells Cancelled Ovalocytes Cancelled Stomatocytes Cancelled Helmet Cells Cancelled [place] Bodies Cancelled [place] Rings Cancelled Neil Cells Cancelled Acanthocytes (Spur) Cancelled Rouleaux Cancelled Schistocytes Cancelled Sodium 144 Potassium 3.0 L D Chloride 111 H Carbon Dioxide 26 BUN 12 Creatinine 0.29 L Estimated GFR > 60 BUN/Creatinine Ratio 41.4 H Glucose 694 H* D Calcium 7.2 L Total Bilirubin 0.4 AST 61 H ALT 115 H Alkaline Phosphatase 63 Total Protein 6.0 L Albumin 3.0 L Globulin 3.0 Albumin/Globulin Ratio 1.0 PFSH Medical History Asthma Chronic back pain greater than 3 months duration Closed intertrochanteric fracture of left femur Depression Drug abuse, IV History of CVA (cerebrovascular accident) Surgical History History of hernia repair Family History Father Unknown family medical history Mother No problems noted. Grandmother Myocardial infarction Grandfather No problems noted. Social History household members: friend(s) Smoking Status: Current some day smoker alcohol intake: current Assessment & Plan Assessment & Plan narrative: 1.? Weakness Patient appears to be chronically debilitated.? No evidence of new stroke on 2 different brain MRIs.? C-spine MRI did reveal some chronic pathology but no acute cord compression.? Orthopedic surgery consulted and recommended outpatient follow-up with Neurosurgery.? Acetylcholine antibodies have been sent to evaluate for underlying myasthenia but they are pending.? DIXIE negative.? Hepatitis panel is also pending.? There does appear to be some volitional component to his symptoms.? He does admit to depression and just recently started on Cymbalta. Was NPO can re-initiate.? Also has started on gabapentin to help with chronic pain. Was NPO can re-initiate.? Cymbalta initiated 05/18/22.? ? 2. Altered mental status / metabolic encephalopathy Patient appears to be at baseline.? ? 3. Acute respiratory failure new line secondary to pneumonia.? This has been treated and resolved. ? 4. Hypertension Presently normotensive, not on therapy. ? 5. Hyperlipidemia Continue atorvastatin ?6. Polysubstance dependence Although patient was intoxicated on admission, he has been?hospitalized for many days with no drug use.? There was evident concern early on that people were bringing controlled substances into the hospital.? However,? he has had restricted visitation since that time. ? 7.? Oral thrush Patient received 7 days of oral fluconazole with improvement.? LFTs were rising and it was subsequently discontinued. ?8. Prior stroke with residual right-sided weakness Patient remains on atorvastatin 40 mg, aspirin 81 mg. 9. Microcytic anemia MCV is 69.5, which is quite low.? Hemoglobin is 12.6.? I am uncertain if he has any known history of thalassemia.? Iron studies were within normal limits.?Has been sent for beta thalassemia lab. 10. Transaminitis LFTs have been elevated.? HIV was negative.? Hepatitis-C panel pending. 11. Nursing concerned that the patient has been hallucinating.? Psychiatry consult ordered.? Patient also appears to have a personality that may embellish his symptoms including the right upper extremity weakness, the need to vomit and the subsequent complaint and problem of not eating enough.? Per dietitian the patient currently is in the status of severe malnutrition.? Perhaps psychiatry can and lightening in regards to the component of his personality affecting and persisting his symptoms. Await psychiatry full consult report. Verbal report is that the patient was not hallucinating. 12. Nausea vomiting yesterday has settled. Will initiate fluid diet. Can also decrease IV rate. 13. Episodic hyperglycemia last evening. Concern for lab reporting error. Repeat glucometer reading was normal. Patient is awaiting placement. ? Code status Clerk Television Production Spent With Patient Critical Care time: I spent a total of [] minutes of critical care time on this patient's care today; this time is exclusive of procedural time. Quality VTE Deep Vein Thrombosis/Pulmonary Embolism Present on Admission: No
--- NOTE | 2022-05-24 11:45 | PT.IPTN ---
Current Diagnoses Cerebral infarction, unspecified (05/01/22) Spinal stenosis, cervical region (05/01/22) Physical Therapy Treatment Note M2 PT-IP Current Condition Start: 05/07/22 09:18 Freq: NEEDED Status: Active Protocol: Document 05/18/22 13:22 SP (Rec: 05/18/22 16:05 SP [id number]) Physical Therapy Current Condition Current Condition Evaluation Date 05/07/22 Treatment Diagnosis metabolic encephalopathy; polysubstance withdrawal; impaired mobility Onset Date 04/30/22 M3 PT-IP Subjective Start: 05/07/22 09:18 Freq: NEEDED Status: Active Protocol: Document 05/24/22 11:26 KS (Rec: 05/24/22 12:09 KS [id number]) Subjective Physical Therapy Visit Type Type Treatment Note Visit Start Time 11:26 Visit Stop Time 11:45 Total Visit Minutes 19 Notes co-treat w/ OT. Number of RELISH MAKER Visits 2 Physical Therapy Visit Comments Patient Comments Pt agreeable to working w/ therapy. M4 PT-IP Mobility and Gait Start: 05/07/22 09:18 Freq: NEEDED Status: Active Protocol: Document 05/24/22 11:26 KS (Rec: 05/24/22 12:09 KS [id number]) PT-Bed Mobility Assessment Supine to Sit Supine to Sit Moderate Assistance,1 Person Assistance,Bedrails Scooting Scooting to Edge of Bed Contact Guard Assistance PT-Transfer Assessment Sit to and From Stand Sit to and from Stand Moderate Assistance,1 Person Assistance,2 Person Assistance ,Use of Upper Extremities Equipment Transfer Assistive Device Gait Belt,Front Wheeled Walker Orthotic/Prosthetic Devices or Brace: No Transfers Transfer Destination Chair Transfer Technique Pt ambulated w/ FWW Transfer Ability Level of Assist Moderate Assistance,1 Person Assistance,2 Person Assistance ,Use of Upper Extremities Comments Mobility Comments Pt in bed upon arrival and agreeable to ambulate. CGA for logroll and Mod A for sidelying<>sit, CGA for scooting EOB w/ cues. Pt then sit<>Stand w/ FWW from slightly raised bed Min A x2 but quickly needed Mod A x2 due to lateral LOB. Pt performed stand step pivot to chair Mod A x2. Pt then completed 3 bouts of ~15 ft ambulation w/ FWW. He required Mod A for sit<>stand w/ FWW w / cues for sequencing, hand placement, and safety. Pt required mostly Mod A w/ occasional Max A for ambulation w/ FWW today, primarily to maintain balanced but also cues for upright posture, step sequencing, and FWW mgmt. Pt fatigued on third attempt. He needs close chair follow w/ all ambulation as he loses balance frequently and easily in different directions. Pt left in chair w / OT. Gait Assessment Gait Gait Assistance Required: Moderate Assistance,Maximum Assistance,1 Person Assist Distance (Feet) 15 Assistive Devices Assistive Device Gait Belt,Front Wheeled Walker Orthotic/Prosthetic Devices or Brace: No Gait Deviations General Gait Pattern Ataxic,Decreased Stride Length ,Decreased Feet Clearance, Flexed Trunk,Lateral Trunk Lean,Narrow Based Gait,Step-to Gait Factors Limiting Gait Function Factors Limiting Gait Function Decreased Activity Tolerance, Decreased Strength,Difficulty Following Directions, Incoordination,Pain,Poor Balance,Poor Safety Awareness Comments Gait Comments Please refer to mobility section for details. Pt very unstable and needs chair follow w/ ambulation. PT-Balance Assessment Sitting Balance and Reactions Static Sitting Balance Ability Fair Dynamic Sitting Balance Ability Fair Standing Balance and Reactions Static Standing Balance Ability Poor Dynamic Standing Balance Ability Poor Device Used FWW M5 PT-IP Objective Assessments Start: 05/07/22 09:18 Freq: NEEDED Status: Active Protocol: Document 05/07/22 11:05 AW (Rec: 05/07/22 13:30 AW [id number]) Orientation Orientation/Cognition Level of Alertness Lethargic Orientation Name,Month,Place Safety Awareness Decreased Safety Awareness Gross Range of Motion Lower Extremity ROM Assessment Within Functional Limits Strength Lower Extremity Strength Assessment Bilaterally Impaired Comments Strength Comments R grossly 3-/5. L grossly 3+/5 Coordination Assessment Gross Coordination Gross Coordination Impaired Assessment Finger to Nose Test Activity Impossible Foot Tapping Test Minimal Impairment Coordination Comments Pt limited by BUE weakness with UE coordination testing. Sensation Assessment Sensation Gross Sensation WNL Muscle Tone Muscle Tone WNL Yes M6 PT-IP Treatment Start: 05/07/22 09:18 Freq: NEEDED Status: Active Protocol: Document 05/24/22 11:26 KS (Rec: 05/24/22 12:09 KS [id number]) Physical Therapy Treatment Education Education Provided Safety M7 PT-IP Assessment and Plan Start: 05/07/22 09:18 Freq: NEEDED Status: Active Protocol: Document 05/24/22 11:26 KS (Rec: 05/24/22 12:09 KS [id number]) PT Summary Assessment and Plan Potential Rehabilitation Potential Fair Status of Condition at Evaluation Evolving Summary Impairments Strength,Balance,Coordination, Cognition,Bed Mobility, Transfers,Gait Assessment Summary Pt continues to make small improvements today. Difficulty sup<>sit due to RUE weakness, but CGA for scooting today. Able to perform multiple sit<> Stands w/ Mod A and FWW w/ cues and also completed 3x15ft ambulation w/ FWW Mod/Max A and close chair follow w/ max verbal and tactile cues. Pt still losing balance frequently during ambulation laterally and posteriorly when ambulating and continues to have poor trunk control and needs hand over hand assist to maintain R handed surgical technologist of FWW . Pt would benefit from continued skilled therapy, recommending SNF and probable long term care phlebotomist placement for strength toward functional mobility. Goals Bed Mobility Goal Contact Guard Assistance Transfer Goal Standby Assistance,Front Wheeled Walker Gait Goal Standby Assistance,Front Wheel Walker Gait Distance 150 Other Goals up/down 4 steps with rails SBA - improve transfers and gait to SBA with 4WW Days to Meet Goals 10 Frequency of Treatment Frequency Of Treatment Once a Day Treatment Plan Physical Therapy Treatment Plan Bed Mobility Training,Transfer Training,Gait Training, Therapeutic Exercise,Balance Retraining,Discharge Planning, Hot or Cold Pack,Neuromuscular Re-ed,Coordination Retraining Other Recommendations and Next Treatment bed mob, sitting balance Focus activities, standing, transfers, gait using FWW chair follow. Consider using mirror for midline orientation . Precautions Other Precautions seizure precautions; falls risk Recommendations To Nursing Amount of Assist Needed 2 Person Assist Discharge Recommendations PT Discharge Recommendations SNF Rehab,LTAC Equipment Needed for Home Before FWW Discharge Transportation Needs at Discharge Stretcher/Ambulance
[2022-05-24 11:56] LABS: Adenovirus Not Detected (Not Detect); Coronavirus 229E Not Detected (Not Detect); Coronavirus HKU1 Not Detected (Not Detect); Coronavirus NL 63 Not Detected (Not Detect); Coronavirus OC43 Not Detected (Not Detect); Human Metapneumovirus Not Detected (Not Detect); Human Rhinovirus/Enterovirus Not Detected (Not Detect); SARS- CoV-2 Not Detected (Not Detecte)
[2022-05-24 11:57] LABS: B. parapertussis Not Detected (Not Detecte); Bordetella pertussis Not Detected (Not Detecte); Chlamydophila pneumoniae Not Detected (Not Detect); Influenza A Not Detected (Not Detect); Influenza B Not Detected (Not Detect); Mycoplasma pneumoniae Not Detected (Not Detect); Parainfluenza Virus 1 Not Detected (Not Detect); Parainfluenza Virus 2 Not Detected (Not Detect); Parainfluenza Virus 3 Not Detected (Not Detect); Parainfluenza Virus 4 Not Detected (Not Detect); Respiratory Syncytial Virus Not Detected (Not Detect)
[2022-05-24 12:00] VITALS: BP 122/79; PULSE 74; RESP 18; TEMP 36.5; O2SAT 97
--- NOTE | 2022-05-24 12:04 | OT.IP.TRT ---
Current Diagnoses Cerebral infarction, unspecified (05/01/22) Spinal stenosis, cervical region (05/01/22) Occupational Therapy Treatment Note M2 OT-IP Current Condition Start: 05/07/22 12:13 Freq: Status: Active Protocol: Document 05/07/22 12:13 CGR (Rec: 05/07/22 12:37 CGR [id number]) Occupational Therapy Current Condition Current Condition Evaluation Date 05/07/22 Treatment Diagnosis generalized weakness, hx IV drug use, R CVA 2016 Diagnosis Onset Date 05/01/22 M3 OT- IP Subjective and Pain Start: 05/07/22 12:13 Freq: Status: Active Protocol: Document 05/24/22 11:26 [facility] (Rec: 05/24/22 12:53 [facility] [id number]) OT- Subjective Occupational Therapy Visit Type Type Treatment Note Visit Start Time 11:26 Visit Stop Time 12:04 Total Visit Minutes 38 Occupational Therapy Visit Comments Patient Comments Pt agreed to get up for therapy. TAILING HAND present for the beginning of the session for mobility needs. Notified nursing transfer only with pt still. Patient/Caregiver Goals TO get better. OT Pain Assessment Pain When Pain Assessed At Rest Pain Present Pain Present Pain Reported M4 OT- IP ADL's Start: 05/07/22 12:13 Freq: Status: Active Protocol: Document 05/24/22 11:26 [facility] (Rec: 05/24/22 12:53 [facility] [id number]) OT [id number] Comments OT Self-Feeding Comments NOt at meal time. OT ADL-Grooming General Evaluation Grooming Ability Minimal Assistance Areas Needing Assistance Combing/Brushing Hair,Face Washing Comments OT Grooming Comments Set-up assist and pt able to was his face after set-up of wash cloth and medel his hair. ROULA for completeness OT ADL-Oral Care General Eval Oral Care Ability Minimal Assistance,Maximum Assistance Areas of Assistance Retrieving/Set-Up of Items Comments Oral Care Comments Assist to help place toothpaste tube into his thumb and index finger and able to hold in place enough so able to use his left hand to open the tube. MAXA to help try to incorporate his right hand to assist for his ADL needs. OT ADL-Dressing General Eval Lower Body Dressing Ability Maximum Assistance Areas Needing Assistance Socks OT ADL-Toileting Comments OT Toileting Comments not performed OT ADL-Bathing Comments OT Bathing Comments not performed M6 OT- IP Functional Cognition Start: 05/07/22 12:13 Freq: Status: Active Protocol: Document 05/24/22 11:26 [facility] (Rec: 05/24/22 12:53 [facility] [id number]) Cognitive Factors Limiting Selfcare Function Cognitive Comments Cognitive Assessment Comments Pt able to follow commands and able to now say most of the safety steps needed in prep of standing up. Pt a bit tearful at the end of the session, nursing aware. M7 OT- IP Mobility and Balance Start: 05/07/22 12:13 Freq: Status: Active Protocol: Document 05/24/22 11:26 [facility] (Rec: 05/24/22 12:53 [facility] [id number]) OT- Bed Mobility Assessment Supine to Sit Supine to Sit Assist Moderate Assistance Scooting Scooting to Edge of Bed Minimal Assistance OT-Transfer Assessment Sit to and From Stand Sit to and from Stand Moderate Assistance,1 Person Assistance,2 Person Assistance Transfers Transfer Ability Moderate Assistance,1 Person Assistance,2 Person Assistance Technique Transfer Destination Bed,Chair Transfer Technique Stand Pivot Devices Transfer Assistive Devices Gait Belt,Front Wheeled Walker Comments Mobility Comments MODA to help get his trunk upright in the bed as his right UE not able to assist very well at this time due to decreased strength, control, and initiation of movement. MODA X 1-2 to stand. MODA X 2 to transfer with FWW to the recliner. Pt wanting to transfer back to the bed and able to perform to the left with MODA/MAXA x1 squat pivot and MODA to help get his legs back into the bed. OT- Balance Assessment Sitting Balance and Reactions Static Sitting Balance Ability Fair Dynamic Sitting Balance Ability Poor Standing Balance and Reactions Static Standing Balance Ability Poor Dynamic Standing Balance Ability Poor Comments Other Balance Tests/Deviations/Treatment Pt at times still : heavily leans to the left and needing from SBA to ROULA for balance. M9 OT- IP Assessment and Plan Start: 05/07/22 12:13 Freq: Status: Active Protocol: Document 05/24/22 11:26 [facility] (Rec: 05/24/22 12:53 [facility] [id number]) OT Summary Assessment and Plan Potential Rehabilitation Potential Fair Analytic Complexity at Evaluation High Summary OT Impairments Pain,Strength,Balance, Coordination,Functional Cognition,Functional Mobility, Self-Feeding,Grooming,Dressing ,Toileting,Bathing,Toilet Transfers,Shower Transfers, Activity Tolerance Progress Towards Goals Progressing Toward Goals Assessment Summary Pt able to tolerate walking with FWW with TAILING HAND more and also with assist able to try to incorporate his right hand during oral care needs. Pt will continue to benefit from skilled rehab to maximize his independence with ADl and mobility needs. Goals Self-Feeding Goal Standby Assistance Grooming Goal Minimal Assistance Dressing Goal Moderate Assistance Toileting Goal Moderate Assistance Bathing Goal Moderate Assistance Toilet Transfer Goal Minimal Assistance Shower Transfer Goal Minimal Assistance Days to Meet Goals 41 Frequency of Treatment Frequency Of Treatment Once a Day Treatment Plan OT Treatment Plan ADL Training,Functional Cognition Training,Functional Mobility,Neuromuscular Re- education,Therapeutic Exercises,Patient/Family Education,Discharge Planning Discharge Recommendations OT Discharge Recommendations SNF Rehab,LTAC Transportation Needs at Discharge Wheelchair/Cabulance,Stretcher /Ambulance
--- NOTE | 2022-05-24 15:01 | CM.DPNOTE ---
DCP Note: Patient is feeling better today, no further N/V. Received call from Maria Fernanda at [facility] ([phone] or [email or web address]) with more questions for his LTC plan after she had a phone interview yesterday. She will plan to finish it and send on to her dog license officer supervisor, she states. Met with patient in his room and with aide and discussed ADL abilitiesinabilities etc. and then returned call to Maria Fernanda and provided more information as to his status as well as faxed today's PT/OT notes to her (fax# [phone]). Discussed that he can go to other counties, his original desire was to go to [place]. Maria Fernanda states that the assessment will not be finalized until end of next week hopefully pending her dog license officer supervisor reviewing. Plan: DCP to follow closely for completion of pt's [facility] LTC assessment and f/u with prior faxed [facility] and other potential LTC placement with slight possibility of SNF prior to LTC since according to ZITA Irving, it will take possibly over a week for assessment to be finalized. Jaz Collins RN/DCP.
[2022-05-24 17:12] VITALS: BP 123/65; PULSE 65; RESP 17; TEMP 36.3; O2SAT 96
[2022-05-24] MEDS: ATORVASTATIN 20 MG TABLET 40 MG PO (20:53)
[2022-05-24] MEDS: TRAMADOL 50 MG TABLET PO (20:53)
[2022-05-24 22:46] VITALS: BP 115/65; PULSE 75; RESP 17; TEMP 37; O2SAT 94
[2022-05-25] MEDS: METOCLOPRAMIDE 10 MG/2 ML INJ IV ×3 (03:25→22:21)
[2022-05-25 04:31] VITALS: BP 125/68; PULSE 83; RESP 18; TEMP 36.8; O2SAT 96
[2022-05-25] MEDS: DEXTROSE 5%-0.9% NS 1,000 ML 125 ML IV (06:48)
[2022-05-25 06:57] LABS: Hemoglobin A1C% w Est Avg Glu 5.4 % (4.0-6.0)
[2022-05-25] MEDS: TRAMADOL 50 MG TABLET PO (07:53)
[2022-05-25] MEDS: ASPIRIN EC 81 MG TABLET PO (08:00)
[2022-05-25] MEDS: ENOXAPARIN 40 MG/0.4 ML SYRINGE SUBCUT (08:01)
[2022-05-25] MEDS: GABAPENTIN 300 MG CAPSULE PO ×3 (08:01→22:21)
[2022-05-25] MEDS: PANTOPRAZOLE 40 MG VIAL IV (08:01)
[2022-05-25] MEDS: MULTIVITAMIN 1 TABLET 1 TAB PO (08:01)
[2022-05-25] MEDS: FOLIC ACID 1 MG TABLET PO (08:01)
[2022-05-25] MEDS: NICOTINE 7 MG PATCH TOP (08:02)
[2022-05-25 10:18] VITALS: BP 138/82; PULSE 67; RESP 16; O2SAT 97
--- NOTE | 2022-05-25 10:19 | ST.IPDYTX ---
Visit Care Team Role Provider Type Amarilis Alcantara MD Other Providers Physician Specialty: Orthopedics Orthopedic Surgery Address: [address] [place], [address] Email: [email or web address] Julito Richmond MD Other Providers Physician Specialty: Psychiatry Address: [facility], [address], [place], [address] Email: [email or web address] Kenney Joshi MD Family Provider Non-Staff Primary Care Provider Specialty: Family Practice Address: [address], [address] [place] [address], [id number] Email: Richard Hannon DO Emergency Provider Physician Referring Provider Specialty: Emergency Medicine Address: [address] [place] [address], [address] Email: [email or web address] JONATHAN Sampson Admit Provider Physician Attending Provider Specialty: Internal Medicine Address: [address] [place] [address], [address] Email: [email or web address] PRIVATE BRANCH EXCHANGE REPAIRER Dysphagia Treatment PRIVATE BRANCH EXCHANGE REPAIRER Clinical Instructor Line Start: 05/07/22 11:09 Freq: Status: Active Protocol: Document 05/17/22 11:23 MG (Rec: 05/17/22 11:24 MG [id number]) PRIVATE BRANCH EXCHANGE REPAIRER Dysphagia Treatment Start: 05/07/22 09:45 Freq: Status: Active Protocol: Document 05/25/22 10:11 MG (Rec: 05/25/22 10:19 MG [id number]) Dysphagia Treatment Session Time Visit Start Time 09:40 Visit Stop Time 10:05 Total Visit Minutes 25 Setting Assessment Location Acute Care Visit Type Note Type Treatment Note Next Note Type Next Note Type Treatment Note Patient Information Identification Type Name,ID Wristband Subjective Observations Pt was reclined in bed upon PRIVATE BRANCH EXCHANGE REPAIRER arrival. Pt was repositioned into upright position for PO trials. Pt is back on a diet of dysphagia mechanical and thin liquids. Assessing to determine fatigue levels and strength for a diet advance closer to baseline for the pt. Pt reports pain in back and legs but is agreeable to work with this PRIVATE BRANCH EXCHANGE REPAIRER for solid trials. Pt also reported he had a good night of rest. Treatment Liquids Trialed Thin Solids Trialed Dysphagia Advanced Administration Type Straw,Dependent Feeding Oral Strategies Upright at 90 degrees, Controlled Bite/Sip Size, Alternate Liquids/Solids Pharyngeal Strategies Sitting Upright (90 deg), Double Swallow,Small Bites and Sips Treatment Activities Laryngeal palpation prior to PO trials indicated adequate movement. Needed verbal reminders to pace himself on taking sips from the straw of thin liquid again (i.e., juice ). With reminder, he did implement safer swallowing for liquids (i.e., taking small sips). On solid trials of dysphagia advanced, no overt s /sx of aspiration were noted as well. No voice change heard throughout the session time. The pt reported things were going the right way when asked and requested more food/ drink, reporting it tasted good. Pt appeared to not fatigue as fast with mastication of the harder texture of food compared to yesterday. Assessment Patient Response to Treatment Good Rehab Potential Good Assessment of Improvement Pt appeared to have no concerns when tolerated solids /liquids trialed at this time. Recommend to upgrade diet to dysphagia advanced/thin liquids at this time. Will continue to f/u with this pt to determine diet tolerance and continue to assess diet to get this pt back to baseline, which is mechanical soft. Pt would benefit from verbal reminders for safe swallow strategies and possibly distant supervision for his first meal on an advanced texture. Diet Recommendations Recommendations Upgrade Diet Order Liquids Order Thin Diet Order Dysphagia Advanced Medication Recommendations As Tolerated,Whole in Carrier Additional Dietary Needs Single Sips,Controlled Sips,1: 1 Supervision,Encourage to Self-Feed,Reminders to Use Strategies Aspiration Precautions Recommended Precautions Upright at 90 Degrees,Frequent Rest Periods,Small Bites/Sips ,Chin Tuck,Check for Pocketing Treatment Plan Placement Recommendation after Discharge Assisted Facility,Haulage Engine Operator Care Facility Appropriate for Continued Therapy Yes Therapy Recommendations Continue to see 1x daily over course of hospital stay to monitor progress and further assess/treat deficits as needed. Dysphagia Goals Pt to participate in ongoing evaluation of swallow safety with diet advancement as appropriate. Pt will safely tolerate least restrictive diet to meet his nutrition and hydration needs
[2022-05-25] MEDS: ACETAMINOPHEN 325 MG TABLET PO (10:30)
--- NOTE | 2022-05-25 11:50 | OT.IPNOTE ---
Attempted to work with pt for OT treatment and pt states in too much pain and would rather be seen later. TO check on the pt later.
--- NOTE | 2022-05-25 11:55 | PT-IP ANOTE ---
Attempted to see pt this AM, pt refused due to high level of pain, but agreeable to later treatment. RN aware.
[2022-05-25 12:00] VITALS: BP 138/82; PULSE 68; O2SAT 97
--- NOTE | 2022-05-25 13:31 | OT.IPNOTE ---
Attempted to see pt for therapy and pt refusing due to having 10-12/10 pain level in his neck and needing to be changed. Nursing notified.
--- NOTE | 2022-05-25 13:40 | PT-IP ANOTE ---
Pt refusing therapy again at this time due to 10/10 pain as well as waiting on nursing staff to provide pericare. Will check on pt again tomorrow.
[2022-05-25 14:42] LABS: HBsAg Screen Negative (Negative); Hepatitis A Antibody IgM Negative (Negative); Hepatitis B Core Antibody IgM Negative (Negative); Hepatitis C Antibody >11.0 s/co ratio (0.0-0.9); Hepatitis C Quant 1780000 IU/mL (.)
--- NOTE | 2022-05-25 14:47 | CM.DPC ---
DCP Cont: Spoke to [facility], as it is noted that clinicals were faxed to them. Mey was not available, but spoke to administrative assistant coordinator. He stated that he would have to get security code to check email. He was familiar with patient, he just wanted to emphasize that adult family home is non-smoking facility. Asked him about daily rates, and he stated, they like at least $114.00 a day. Called Maria Fernanda Danielle, manager of case at [facility]. Let her know about this facility. She indicated, she does not normally look for facilities for patients, they have a team that do that. Asked her about assessment, since it was noted that assessment could be done next week. She stated, she has to have her supervisor gas meter repair look at it before it's completed. Maria Fernanda mentioned, I have told your co-workers and you that I have been working on this, and would get an assessment done as soon as I could, and I don't appreciate you going to my supervisor gas meter repair, since that acts as a complaint. Let her know that hospital is attempting to get patient out as soon as possible, and was asked to see if her supervisor gas meter repair could possibly expidite the process. Maria Fernanda continued to state that it was inappropriate to contact her supervisor gas meter repair, and she then stated that this DC Nsh Teacher was being condescending towards her, when this DC environmental emergencies planner was just attempting to communicate to ensure that patient could be discharged as soon as possible. Let Maria Fernanda know that the goal is the patient, and getting him to a safe facility, and to work as a team. Let her know that if she has concerns, can discuss with this DC environmental emergencies planner's supervisor gas meter repair, but need to be professional and work on getting patient discharged. Maria Fernanda also indicated, it's a process, and can't put a time on it, I'm new at this. Conversation was then abruptly ended. P: DCP to continue to follow. Will need to follow up again next week to see status of assessment. Maria Fernanda will also send updated email, she has care management's email as well, since there was originally a problem with IT. Care management will continue to search for alternate facilities. Claudia Segal RN/Emergency Medical Service Manager
--- NOTE | 2022-05-25 14:56 | SLP.IPNOTE ---
CHEMICAL ENGINEERING INTERN went to check in with pt's team re: tolerance of diet upgrade and how lunch went. Per nurse and CODE ENFORCEMENT OFFICER, the pt ate all of his mashed potatoes and turkey (which was chopping into small, managable pieces) with no overt s/sx of aspiration during the entire meal. Pt also self-fed part of his meal with supervision. The carrots were still tough so he did not eat them. This CHEMICAL ENGINEERING INTERN recommends continuing new upgraded diet while following safe swallowing precautions and 1:1 supervision to prep meal as needed, reminders to use strategies, and maintaining upright posture.
--- NOTE | 2022-05-25 17:03 | PC.NURSE ---
1530 - I spoke with Fahad's ex- Britt. She continues to be very concerned about the visitation policy. I had a visit with Fahad. I asked if he understood why his visitation was being restricted, discussed his acute change in status after his 1st visitor. He states I shot up with heroin. Discussed with patient the severity of his condition. Offered for him to choose a support person. Reinforcing that the person he chooses should be in support of his health goals. Fahad asked me to ask Britt if she would reach out to Kiesha Schmidt. After a conversation with Britt, she felt this would not be a person that would come over from [place] to consistently support Fahad. Britt is to have a conversation with Fahad. 1630 - I went again to speak with Fahad. He says that he knows a lot of dark people. He is unsure who to choose, I don't want to pick someone that I could manipulate into doing something they shouldn't. Fahad decided that he would continue with the no visitors at this time. I want to make sure I choose the right person. Follow up with Britt, she is in agreement with this plan.
--- NOTE | 2022-05-25 17:24 | PM.PN.1 ---
Subjective Subjective Date Patient Seen: 05/25/22 Time Patient Seen: 08:00 Interval history: No complaints today. Exam Vital Signs (past 8 hours): - 05/25/22 10:18 05/25/22 12:00 Pulse Rate 67 68 Respiratory Rate 16 Blood Pressure 138/82 138/82 Pulse Oximetry 97 97 Oxygen Flow Rate 0 0 Oxygen Delivery Method Room Air Oxygen Flow Rate 0 Narrative Exam Narrative: GEN: no acute distress CV: regular rate and rhythm PULM: clear bilaterally ABD: soft, nontender nondistended EXT: warm and well perfused, no edema NEURO: awake, alert, oriented, right sided upper extremity and lower extremity weakness Objective Labs Result Diagrams: 05/23/22 21:21 05/23/22 21:21 Labs: Laboratory Results - last 24 hr 05/19/22 05/23/22 06:40 21:21 Hemoglobin A1c 5.4 Hepatitis Panel Comment Hepatitis A IgM Ab Negative Hep Bs Antigen Negative Hep B Core IgM Ab Negative Hepatitis C Antibody >11.0 H Hepatitis C RNA Quant [id number] HCV RNA (PCR) log10 6.250 Ref Lab Notation Comment FOR[facility]LY [facility], [facility] Medical History (Updated 05/24/22 @ 14:48 by Julito Richmond MD) Asthma Chronic back pain greater than 3 months duration Closed intertrochanteric fracture of left femur Depression Drug abuse, IV History of CVA (cerebrovascular accident) Surgical History History of hernia repair Family History Father Unknown family medical history Mother No problems noted. Grandmother Myocardial infarction Grandfather No problems noted. Social History household members: friend(s) Smoking Status: Current some day smoker alcohol intake: current Assessment & Plan Assessment & Plan narrative: 1.? Weakness -no evidence of stroke on MRI x2 -cspine MRI showed chronic pathology, no acute compression -ortho rec outpatient follow up with neuro surgery -cymbalta ordered for possible psych component -acetylcholine antibody negative ? 2. Altered mental status / metabolic encephalopathy Patient appears to be at baseline.? ? 3. Acute respiratory failure new line secondary to pneumonia.? -resolved ? 4. Hypertension Presently normotensive, not on therapy. ? 5. Hyperlipidemia Continue atorvastatin ?6. Polysubstance dependence -initially was intoxicated but has been off substances here in the hospital ? 7.? Oral thrush Patient received 7 days of oral fluconazole with improvement.? LFTs were rising and it was subsequently discontinued. ?8. Prior stroke with residual right-sided weakness Patient remains on atorvastatin 40 mg, aspirin 81 mg. 9. Microcytic anemia MCV is 69.5, which is quite low.? Hemoglobin is 12.6.? I am uncertain if he has any known history of thalassemia.? Iron studies were within normal limits.?Has been sent for beta thalassemia lab. 10. Transaminitis LFTs have been elevated.? HIV was negative.? Hepatitis-C panel pending. 11. Nursing concerned that the patient has been hallucinating.? Psychiatry consult ordered.? Patient also appears to have a personality that may embellish his symptoms including the right upper extremity weakness, the need to vomit and the subsequent complaint and problem of not eating enough. 12. Nausea vomiting yesterday has settled. Will initiate fluid diet. Can also decrease IV rate. 13. Episodic hyperglycemia last evening. Concern for lab reporting error. Repeat glucometer reading was normal. Code status Steel Division Supervisor Spent With Patient Critical Care time: I spent a total of [] minutes of critical care time on this patient's care today; this time is exclusive of procedural time. Quality VTE Deep Vein Thrombosis/Pulmonary Embolism Present on Admission: No
[2022-05-25 18:00] VITALS: BP 137/75; PULSE 75; O2SAT 97
[2022-05-25 20:00] VITALS: BP 133/71; PULSE 69; RESP 16; TEMP 36.2; O2SAT 96
[2022-05-25] MEDS: ATORVASTATIN 20 MG TABLET 40 MG PO (22:20)
[2022-05-25] MEDS: PANTOPRAZOLE DR 40 MG TABLET PO (22:21)
[2022-05-25] MEDS: LORazepam 2 MG/ML INJ 0.5 MG IV (22:31)
[2022-05-25 23:00] VITALS: BP 135/78; PULSE 80; RESP 16
[2022-05-26] MEDS: TRAMADOL 50 MG TABLET PO (00:10)
[2022-05-26] MEDS: METOCLOPRAMIDE 10 MG/2 ML INJ IV ×3 (04:25→20:58)
[2022-05-26 07:40] VITALS: BP 129/85; PULSE 82; RESP 15; TEMP 36.7; O2SAT 97
[2022-05-26] MEDS: ENOXAPARIN 40 MG/0.4 ML SYRINGE SUBCUT (08:38)
[2022-05-26] MEDS: NICOTINE 7 MG PATCH TOP (08:38)
[2022-05-26] MEDS: FOLIC ACID 1 MG TABLET PO (08:39)
[2022-05-26] MEDS: DULOXETINE 30 MG CAPSULE PO (08:39)
[2022-05-26] MEDS: MULTIVITAMIN 1 TABLET 1 TAB PO (08:39)
[2022-05-26] MEDS: GABAPENTIN 300 MG CAPSULE PO ×2 (08:39→20:57)
[2022-05-26] MEDS: PANTOPRAZOLE DR 40 MG TABLET PO ×2 (08:39→20:58)
[2022-05-26] MEDS: LORazepam 1 MG TABLET 2 MG PO (08:45)
--- NOTE | 2022-05-26 11:42 | PT.IPTN ---
Current Diagnoses Depression, unspecified (05/01/22) Cerebral infarction, unspecified (05/01/22) Spinal stenosis, cervical region (05/01/22) Physical Therapy Treatment Note M2 PT-IP Current Condition Start: 05/07/22 09:18 Freq: NEEDED Status: Active Protocol: Document 05/18/22 13:22 SP (Rec: 05/18/22 16:05 SP [id number]) Physical Therapy Current Condition Current Condition Evaluation Date 05/07/22 Treatment Diagnosis metabolic encephalopathy; polysubstance withdrawal; impaired mobility Onset Date 04/30/22 M3 PT-IP Subjective Start: 05/07/22 09:18 Freq: NEEDED Status: Active Protocol: Document 05/26/22 11:29 KS (Rec: 05/26/22 12:27 KS [id number]) Subjective Physical Therapy Visit Type Type Treatment Note Visit Start Time 11:29 Visit Stop Time 11:42 Total Visit Minutes 13 Notes co-treat w/ OT. Number of RESIDENT CARE TECHNICIAN Visits 3 Physical Therapy Visit Comments Patient Comments Pt very lethargic today. M4 PT-IP Mobility and Gait Start: 05/07/22 09:18 Freq: NEEDED Status: Active Protocol: Document 05/26/22 11:29 KS (Rec: 05/26/22 12:27 KS [id number]) PT-Bed Mobility Assessment Rolling Type of Rolling Log Rolling,Roll to Right,Roll to Left Level of Assist Moderate Assistance Supine to Sit Supine to Sit Moderate Assistance,1 Person Assistance,Bedrails PT-Transfer Assessment Comments Mobility Comments Pt in bed upon arrival and appearing very drowsy but agreeable to PT. Attempted logroll to L side today, pt had more difficulty than logroll to R side, Mod A x2. Unable to maintain trunk control when sitting. Pt laid back down CGA and performed logroll to R side, verbal and tactile cues for arm placement and sequencing. Mod A for sidelying<>sit. Pt still unable to maintain trunk control at EOB even w/ hand rail and having difficulty keeping eyes open. Pt laid himself back down on his side and with cues was able to get his legs into bed. Max A x2 for scooting up in bed. Pts BP was: 145/82 in supine and 123 /78 in sitting and pt feeling woozy. Left in bed w/ alarm on and all needs in reach. Gait Assessment Comments Gait Comments Unable to attempt today. PT-Balance Assessment Sitting Balance and Reactions Static Sitting Balance Ability Poor Dynamic Sitting Balance Ability Poor M5 PT-IP Objective Assessments Start: 05/07/22 09:18 Freq: NEEDED Status: Active Protocol: Document 05/07/22 11:05 AW (Rec: 05/07/22 13:30 AW [id number]) Orientation Orientation/Cognition Level of Alertness Lethargic Orientation Name,Month,Place Safety Awareness Decreased Safety Awareness Gross Range of Motion Lower Extremity ROM Assessment Within Functional Limits Strength Lower Extremity Strength Assessment Bilaterally Impaired Comments Strength Comments R grossly 3-/5. L grossly 3+/5 Coordination Assessment Gross Coordination Gross Coordination Impaired Assessment Finger to Nose Test Activity Impossible Foot Tapping Test Minimal Impairment Coordination Comments Pt limited by BUE weakness with UE coordination testing. Sensation Assessment Sensation Gross Sensation WNL Muscle Tone Muscle Tone WNL Yes M6 PT-IP Treatment Start: 05/07/22 09:18 Freq: NEEDED Status: Active Protocol: Document 05/26/22 11:29 KS (Rec: 05/26/22 12:27 KS [id number]) Physical Therapy Treatment Education Education Provided Safety M7 PT-IP Assessment and Plan Start: 05/07/22 09:18 Freq: NEEDED Status: Active Protocol: Document 05/26/22 11:29 KS (Rec: 05/26/22 12:27 KS [id number]) PT Summary Assessment and Plan Potential Rehabilitation Potential Fair Status of Condition at Evaluation Evolving Summary Impairments Strength,Balance,Coordination, Cognition,Bed Mobility, Transfers,Gait Assessment Summary Pt unfortunately did not show improvements today. Very lethargic and weak and unable to maintain trunk control or perform transfer or trial ambulation. Mod A - Max A x1-2 for bed mobility today w/ verbal and tactile cues throughout. Pt would benefit from continued skilled therapy , and will require SNF and patient clerical assistant care placement to improve functional mobility and strength. Goals Bed Mobility Goal Contact Guard Assistance Transfer Goal Standby Assistance,Front Wheeled Walker Gait Goal Standby Assistance,Front Wheel Walker Gait Distance 150 Other Goals up/down 4 steps with rails SBA - improve transfers and gait to SBA with 4WW Days to Meet Goals 10 Frequency of Treatment Frequency Of Treatment Once a Day Treatment Plan Physical Therapy Treatment Plan Bed Mobility Training,Transfer Training,Gait Training, Therapeutic Exercise,Balance Retraining,Discharge Planning, Hot or Cold Pack,Neuromuscular Re-ed,Coordination Retraining Other Recommendations and Next Treatment bed mob, sitting balance Focus activities, standing, transfers, gait using FWW chair follow. Consider using mirror for midline orientation . Precautions Other Precautions seizure precautions; falls risk Recommendations To Nursing Amount of Assist Needed 2 Person Assist Discharge Recommendations PT Discharge Recommendations SNF Rehab,LTAC Equipment Needed for Home Before FWW Discharge Transportation Needs at Discharge Stretcher/Ambulance
--- NOTE | 2022-05-26 11:42 | OT.IP.TRT ---
Current Diagnoses Depression, unspecified (05/01/22) Cerebral infarction, unspecified (05/01/22) Spinal stenosis, cervical region (05/01/22) Occupational Therapy Treatment Note M2 OT-IP Current Condition Start: 05/07/22 12:13 Freq: Status: Active Protocol: Document 05/07/22 12:13 CGR (Rec: 05/07/22 12:37 CGR [id number]) Occupational Therapy Current Condition Current Condition Evaluation Date 05/07/22 Treatment Diagnosis generalized weakness, hx IV drug use, R CVA 2015 Diagnosis Onset Date 05/01/22 M3 OT- IP Subjective and Pain Start: 05/07/22 12:13 Freq: Status: Active Protocol: Document 05/26/22 11:29 CCC (Rec: 05/26/22 12:15 CCC [id number]) OT- Subjective Occupational Therapy Visit Type Type Treatment Note Visit Start Time 11:29 Visit Stop Time 11:42 Total Visit Minutes 13 Occupational Therapy Visit Comments Patient Comments Pt agreed to get up but very sleepy and groogy. Patient/Caregiver Goals TO get better. OT Pain Assessment Pain When Pain Assessed At Rest Pain Present Pain Present Pain Reported M6 OT- IP Functional Cognition Start: 05/07/22 12:13 Freq: Status: Active Protocol: Document 05/26/22 11:29 CCC (Rec: 05/26/22 12:15 CCC [id number]) Cognitive Factors Limiting Selfcare Function Cognitive Ability Level of Alertness Drowsy Attention Span Ability Capable of Focused Attention, Unable to Focus,Unable to Sustain Attention Ability to Follow Commands Able to Follow One Step Commands with Increased Time, Able to Follow One Step Commands with Repetition Cognitive Comments Cognitive Assessment Comments Pt very groogy and sleep today and having trouble to stay awake and follow commands. M7 OT- IP Mobility and Balance Start: 05/07/22 12:13 Freq: Status: Active Protocol: Document 05/26/22 11:29 CCC (Rec: 05/26/22 12:15 [facility] [id number]) OT- Bed Mobility Assessment Supine to Sit Supine to Sit Assist Moderate Assistance OT-Transfer Assessment Comments Mobility Comments MOD to help get upright on the right side by assist for RUE management to be able to help with weight bearing through elbow and hand and some assist to get his trunk upright. Pt having more difficulty to get up from the left as not able to reach over with his right arm to assist and ended up needing 2 person assist to get up to the left and then immediately having to lie back down. BP [id number] and while sitting 123/78 and pt symptomatic. Assist pt back to bed and nurse notified of drop in BP. In addition suggested at this time pt too sleepy to eat at this time. OT- Balance Assessment Sitting Balance and Reactions Static Sitting Balance Ability Poor Dynamic Sitting Balance Ability Poor Comments Other Balance Tests/Deviations/Treatment Pt not able to keep himself : upright today and leaning posteriorly as well today. M8 OT- IP Objective Assessments Start: 05/07/22 12:13 Freq: Status: Active Protocol: Document 05/07/22 12:13 CGR (Rec: 05/07/22 12:37 CGR [id number]) OT Gross Range of Motion Upper Extremity Range of Motion ROM Impairments AAROM WFL OT Strength Upper Extremity Strength Assessment Bilaterally Impaired Comments Strength Comments R weaker than L R grossly 2/5 L grossly 2+ to 3-/5 OT- Coordination Assessment Upper Extremity Finger to Nose Test Bilateral UE Impaired Finger Tapping Test Bilateral UE Impaired OT-Muscle Tone Assessment Muscle Tone WNL Yes OT Sensation Assessment Edema Edema Absent M9 OT- IP Assessment and Plan Start: 05/07/22 12:13 Freq: Status: Active Protocol: Document 05/26/22 11:29 [facility] (Rec: 05/26/22 12:15 CCC [id number]) OT Summary Assessment and Plan Potential Rehabilitation Potential Fair Analytic Complexity at Evaluation High Summary OT Impairments Pain,Strength,Balance, Coordination,Functional Cognition,Functional Mobility, Self-Feeding,Grooming,Dressing ,Toileting,Bathing,Toilet Transfers,Shower Transfers, Activity Tolerance Progress Towards Goals Slow Progress due to Pain,Slow Progress due to Medical Issues,Slow Progress due to Activity Tolerance Assessment Summary Pt very groggy and sleepy today and only able to tolerate sitting up at the edge of the bed and had decreased BP and symptomatic. Nursing notified on his drop in bp. Pt would benefit from SNF initially to maximize his independence with his needs and then may also need LTC afterwards. Goals Self-Feeding Goal Standby Assistance Grooming Goal Minimal Assistance Dressing Goal Moderate Assistance Toileting Goal Moderate Assistance Bathing Goal Moderate Assistance Toilet Transfer Goal Minimal Assistance Shower Transfer Goal Minimal Assistance Days to Meet Goals 41 Frequency of Treatment Frequency Of Treatment Once a Day Treatment Plan OT Treatment Plan ADL Training,Functional Cognition Training,Functional Mobility,Neuromuscular Re- education,Therapeutic Exercises,Patient/Family Education,Discharge Planning Discharge Recommendations OT Discharge Recommendations SNF Rehab,LTAC Transportation Needs at Discharge Stretcher/Ambulance
[2022-05-26 11:48] LABS: BUN Creatinine Ratio 25.6 (6-22); Blood Urea Nitrogen 11 mg/dL (9-20); Calcium 9.1 mg/dL (8.4-10.2); Carbon Dioxide 36 mmol/L (22-32); Chloride 100 mmol/L (98-107); Estimated Glomerular Filt Rate > 60 mL/min (>60); Glucose 84 mg/dL (80-110); HEMOLYSIS < 15 (0-50); Potassium 3.9 mmol/L (3.4-5.1); Sodium 139 mmol/L (137-145)
[2022-05-26 12:00] VITALS: BP 139/78; PULSE 82; RESP 18; TEMP 36.2; O2SAT 96
--- NOTE | 2022-05-26 12:26 | PM.PN.1 ---
Subjective Subjective Date Patient Seen: 05/26/22 Time Patient Seen: 08:00 Interval history: Received ativan this morning and now lethargic. No complaints. Exam Vital Signs (past 8 hours): - 05/26/22 07:40 Temperature 98.0 F Pulse Rate 82 Respiratory Rate 15 Blood Pressure 129/85 Pulse Oximetry 97 Oxygen Flow Rate 0 Oxygen Delivery Method Room Air Oxygen Flow Rate 0 Narrative Exam Narrative: GEN: no acute distress CV: regular rate and rhythm PULM: clear bilaterally ABD: soft, nontender nondistended EXT: warm and well perfused, no edema NEURO: lethargic, right sided upper extremity and lower extremity weakness Objective Labs Result Diagrams: 05/23/22 21:21 05/26/22 11:03 Labs: Laboratory Results - last 24 hr 05/19/22 05/26/22 06:40 11:03 Sodium 139 Potassium 3.9 Chloride 100 Carbon Dioxide 36 H BUN 11 Creatinine 0.43 L Estimated GFR > 60 BUN/Creatinine Ratio 25.6 H Glucose 84 D Calcium 9.1 Hepatitis Panel Comment Hepatitis A IgM Ab Negative Hep Bs Antigen Negative Hep B Core IgM Ab Negative Hepatitis C Antibody >11.0 H Hepatitis C RNA Quant [id number] HCV RNA (PCR) log10 6.250 Ref Lab Notation Comment [facility] Medical History (Updated 05/24/22 @ 14:48 by Julito Richmond MD) Asthma Chronic back pain greater than 3 months duration Closed intertrochanteric fracture of left femur Depression Drug abuse, IV History of CVA (cerebrovascular accident) Surgical History History of hernia repair Family History Father Unknown family medical history Mother No problems noted. Grandmother Myocardial infarction Grandfather No problems noted. Social History household members: friend(s) Smoking Status: Current some day smoker alcohol intake: current Assessment & Plan Assessment & Plan narrative: 1.? Weakness -no evidence of stroke on MRI x2 -cspine MRI showed chronic pathology, no acute compression -ortho rec outpatient follow up with neuro surgery -cymbalta ordered for possible psych component -acetylcholine antibody negative ? 2. Altered mental status / metabolic encephalopathy -drug seeking -careful with opiates, benzos -no visitors in room as pt admitted to using substances in room? ? 3. Acute respiratory failure new line secondary to pneumonia.? -resolved ? 4. Hypertension Presently normotensive, not on therapy. ? 5. Hyperlipidemia Continue atorvastatin ?6. Polysubstance dependence -initially was intoxicated but has been off substances here in the hospital ? 7.? Oral thrush Patient received 7 days of oral fluconazole with improvement.? LFTs were rising and it was subsequently discontinued. ?8. Prior stroke with residual right-sided weakness Patient remains on atorvastatin 40 mg, aspirin 81 mg. 9. Microcytic anemia -mild, thalassemia labs were sent 10. Transaminitis, Hepatitis C positive -will need follow up for treatment 11. Nursing concerned that the patient has been hallucinating.? Psychiatry consult ordered.? Patient also appears to have a personality that may embellish his symptoms including the right upper extremity weakness, the need to vomit and the subsequent complaint and problem of not eating enough. Code status Ux Ui Designer Spent With Patient Critical Care time: I spent a total of [] minutes of critical care time on this patient's care today; this time is exclusive of procedural time. Quality VTE Deep Vein Thrombosis/Pulmonary Embolism Present on Admission: No
[2022-05-26] MEDS: DEXTROSE 5% IN WATER 250 ML 50 ML IV (14:14)
[2022-05-26] MEDS: LORazepam 1 MG TABLET 0.5 MG PO ×2 (17:09→22:34)
--- NOTE | 2022-05-26 19:08 | PC.NURSE ---
Pt lethargic first part of shift some meds held Ativan reassessed. and changed. D5W given for BS 77 second BS 144. SS at 16:45 per MD held to avoid drop in BS level. Pt more awake this afternoon and early evening. Bed bath and shave per DIGITAL MEDIA SPECIALIST of help. Pt not happy with ativan dose but MD does not want to change at this time .
[2022-05-26 19:30] VITALS: BP 131/59; PULSE 80; RESP 16; TEMP 37; O2SAT 94
[2022-05-26] MEDS: ATORVASTATIN 20 MG TABLET 40 MG PO (20:57)
[2022-05-26] MEDS: SCOPOLAMINE 1 PATCH TOP (20:57)
[2022-05-26 23:19] VITALS: BP 131/59; PULSE 80; RESP 18
[2022-05-27] MEDS: METOCLOPRAMIDE 10 MG/2 ML INJ IV ×3 (03:28→15:41)
[2022-05-27 06:00] VITALS: PULSE 73; RESP 16; O2SAT 96
[2022-05-27 07:00] VITALS: BP 128/80; PULSE 81; RESP 16; TEMP 35.7; O2SAT 95
[2022-05-27] MEDS: MULTIVITAMIN 1 TABLET 1 TAB PO (09:06)
[2022-05-27] MEDS: GABAPENTIN 300 MG CAPSULE PO ×2 (09:06→15:41)
[2022-05-27] MEDS: ENOXAPARIN 40 MG/0.4 ML SYRINGE SUBCUT (09:06)
[2022-05-27] MEDS: DULOXETINE 30 MG CAPSULE PO (09:06)
[2022-05-27] MEDS: NICOTINE 7 MG PATCH TOP (09:06)
[2022-05-27] MEDS: ASPIRIN EC 81 MG TABLET PO (09:06)
[2022-05-27] MEDS: PANTOPRAZOLE DR 40 MG TABLET PO ×2 (09:06→20:33)
[2022-05-27] MEDS: FOLIC ACID 1 MG TABLET PO (09:06)
--- NOTE | 2022-05-27 11:40 | P.PN_ITS ---
Subjective Subjective Date Patient Seen: 05/27/22 Time Patient Seen: 09:00 Interval history: Patient seen for daily rounds, he is on admit day 26 admitted by me on on May 01, 2022 with symptoms of a CVA. He has since been ruled out. Patient has had a history of active heroin use and was suspected early in this admission to have had drugs brought into his room by outside family and friends, so his visitation has been strictly limited. Currently he is awaiting placement. He is a 62 y.o. male with right sided weakness that has since been ruled out for a CVA on May 01 and May 16. He underwent MRI imaging of the neck indicating moderate to severe canal narrowing from C-3 to C5-6 disc osteophyte presence from C3 to T1, and ventral canal cord flattening from C2 to C7. Chest xrays were done on 05/01, 05/03 and on 05/23 the latter 2 confirming PICC line placement and presence with no acute findings. He reports continued weakness and pain, stating mostly in his neck and back. He endorses that he lives on [facility], his famly resides in [place]. Exam Vital Signs (past 8 hours): - 05/27/22 06:00 05/27/22 07:00 Temperature 96.2 F L Pulse Rate 73 81 Respiratory Rate 16 16 Blood Pressure 128/80 Pulse Oximetry 96 95 Oxygen Flow Rate 0 0 Oxygen Delivery Method Room Air Oxygen Flow Rate 0 Narrative Exam Narrative: Gen: Alert, oriented, cachectic appearing 62 y.o. male, speaks in whispers HEENT: normocephalic, atraumatic, conjunctiva clear, sclera non-icteric, oral mucosa pink and moist Neck: supple, full ROM, no JVD, trachea is midline Resp: Lungs diminished, non-labored breathing CV: RRR, no murmur or rubs Abd: soft, non-tender, normoactive BTs Skin: no lesions or rashes, dry and intact Neuro: Alert and oriented X 4 w/no focal deficits. Speech clear and coherent. 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 Objective Labs Result Diagrams: 05/23/22 21:21 05/26/22 11:03 Labs: Laboratory Results - last 24 hr 05/26/22 11:03 Sodium 139 Potassium 3.9 Chloride 100 Carbon Dioxide 36 H BUN 11 Creatinine 0.43 L Estimated GFR > 60 BUN/Creatinine Ratio 25.6 H Glucose 84 D Calcium 9.1 [facility] Medical History Asthma Chronic back pain greater than 3 months duration Closed intertrochanteric fracture of left femur Depression Drug abuse, IV History of CVA (cerebrovascular accident) Surgical History History of hernia repair Family History Father Unknown family medical history Mother No problems noted. Grandmother Myocardial infarction Grandfather No problems noted. Social History household members: friend(s) Smoking Status: Current some day smoker alcohol intake: current Assessment & Plan Assessment & Plan narrative: 1.? Weakness * no evidence of stroke on MRI x2 * c-spine MRI showed chronic pathology, no acute compression * ortho rec outpatient follow up with neurosurgery * cymbalta ordered for possible psych component * acetylcholine antibody negative * echocardiogram done on 05/01 indicates a slightly decreased EF of 50-55% with the left ventricle being slightly less dynamic than previous done in 2016 ? 2. Altered mental status / metabolic encephalopathy * drug seeking * limit opiates, benzos * no visitors in room as pt admitted to using substances in room? ? 3. Acute respiratory failure new line secondary to pneumonia.? * resolved ? 4. Hypertension * Presently normotensive, not on therapy. ? 5. Hyperlipidemia * Continue atorvastatin ?6. Polysubstance dependence * initially was intoxicated but has been off substances here in the hospital ? 7.? Oral thrush * Patient received 7 days of oral fluconazole with improvement.? LFTs were rising and it was subsequently discontinued. ?8. Prior stroke with residual right-sided weakness * Patient remains on atorvastatin 40 mg, aspirin 81 mg. * PT continues to try to work with him * Seeking placement, however this is a challenge in the setting of his drug use 9. Microcytic anemia * mild, thalassemia labs were sent 10. Transaminitis, Hepatitis C positive * will need follow up for treatment 11. Nursing concerned that the patient has been hallucinating.? Psychiatry consult ordered.? Patient also appears to have a personality that may embellish his symptoms including the right upper extremity weakness, the need to vomit and the subsequent complaint and problem of not eating enough. COVID-19 COVID-19 status: Negative Result date/Date tested (Pos, Neg/Pending): 05/23/22 Time Spent With Patient Critical Care time: I spent a total of [] minutes of critical care time on this patient's care today; this time is exclusive of procedural time. Quality VTE Deep Vein Thrombosis/Pulmonary Embolism Present on Admission: No MIPS - Admit I confirm the patient?s Advance Care Plan is present, Code status is documented, Surrogate decision maker is in patient?s record [If Yes, STOP here]: Yes MIPS - DC The patient has current or prior documentation of left ventricular ejection fraction (LVEF) less than 40%, or moderate or severely depressed left ventricular systolic function.: No
[2022-05-27 11:56] VITALS: BP 116/74; PULSE 72; RESP 14; O2SAT 94
[2022-05-27] MEDS: LORazepam 1 MG TABLET 0.5 MG PO ×2 (12:35→19:04)
[2022-05-27 13:22] VITALS: BP 112/66; PULSE 79; RESP 16
[2022-05-27] MEDS: TRAMADOL 50 MG TABLET PO (15:41)
[2022-05-27] MEDS: SODIUM CHLORIDE 0.9% FLUSH 10 ML IV (15:42)
[2022-05-27 18:00] VITALS: BP 113/66; PULSE 80; RESP 20; TEMP 36.6; O2SAT 95
--- NOTE | 2022-05-27 18:34 | PC.NURSE ---
Pt states, sharp pain right arm, 7/10 pain level, really uncomfortable and that Tramadol does not help at all. Spoke to Dr. Ritchie in person and he ordered Lalitha,see MAR.
[2022-05-27] MEDS: HYDROCODONE/ACET 5/325 TABLET 1 TAB PO (19:04)
[2022-05-27 20:10] VITALS: BP 128/75; PULSE 72; RESP 16; TEMP 36.3; O2SAT 97
[2022-05-27] MEDS: ATORVASTATIN 20 MG TABLET 40 MG PO (20:33)
[2022-05-28 02:30] VITALS: BP 140/62; PULSE 69; RESP 16; TEMP 36.2; O2SAT 97
[2022-05-28] MEDS: LORazepam 1 MG TABLET 0.5 MG PO ×5 (03:14→23:08)
[2022-05-28] MEDS: ENOXAPARIN 40 MG/0.4 ML SYRINGE SUBCUT (08:08)
[2022-05-28] MEDS: GABAPENTIN 300 MG CAPSULE PO ×3 (08:08→21:02)
[2022-05-28] MEDS: NICOTINE 7 MG PATCH TOP (08:08)
[2022-05-28] MEDS: MULTIVITAMIN 1 TABLET 1 TAB PO (08:08)
[2022-05-28] MEDS: DULOXETINE 30 MG CAPSULE PO (08:09)
[2022-05-28] MEDS: FOLIC ACID 1 MG TABLET PO (08:09)
[2022-05-28] MEDS: PANTOPRAZOLE DR 40 MG TABLET PO ×2 (08:09→21:03)
[2022-05-28] MEDS: ASPIRIN EC 81 MG TABLET PO (08:09)
--- NOTE | 2022-05-28 08:51 | DIET.CONS2 ---
Dietary Inpatient Consultation Note Admission Date: 05/01/2022 04:28 Pts POs continue to be excellent 75-100%. Pt intermittently self-feeding with large handled light weight silverware. Pt able to order meals appropriately and continues to enjoy high PRO smoothies. Plan to continue supportive nutrition to increase pts strength and nutrition status until d/c. Diet: 05/25/22 Lunch Dysphagia Diet Diet Modifications: Stick to softer options Liquid consistency: Normal/Thin Food texture: Dysphagia Advanced Nutrition Percent Meal Consumed 90 05/27/22 17:21 Percent Meal Consumed 75% 05/27/22 07:00 Percent Meal Consumed 100% 05/26/22 19:18 Percent Meal Consumed 100% 05/26/22 12:30 Electronically Signed by: Michaela Alicea 05/28/22 08:51 Clinical Dietitian [address] [address]
[2022-05-28] MEDS: METOCLOPRAMIDE 10 MG/2 ML INJ IV (10:12)
--- NOTE | 2022-05-28 10:56 | PC.NURSE ---
at this time, patient in bed comfortable and listening to music. patient reports his strength is starting to come back. he is happy he is able to use his cellphone.
--- NOTE | 2022-05-28 11:33 | PT.IPTN ---
Current Diagnoses Depression, unspecified (05/01/22) Cerebral infarction, unspecified (05/01/22) Spinal stenosis, cervical region (05/01/22) Physical Therapy Treatment Note M2 PT-IP Current Condition Start: 05/07/22 09:18 Freq: NEEDED Status: Active Protocol: Document 05/18/22 13:22 SP (Rec: 05/18/22 16:05 SP [id number]) Physical Therapy Current Condition Current Condition Evaluation Date 05/07/22 Treatment Diagnosis metabolic encephalopathy; polysubstance withdrawal; impaired mobility Onset Date 04/30/22 M3 PT-IP Subjective Start: 05/07/22 09:18 Freq: NEEDED Status: Active Protocol: Document 05/28/22 13:07 RBD (Rec: 05/28/22 13:24 RBD [id number]) Subjective Physical Therapy Visit Type Type Treatment Note Visit Start Time 11:11 Visit Stop Time 11:33 Total Visit Minutes 22 Notes co-treat w/ OT. Number of [employer] UTILITY WORKER Visits 4 Physical Therapy Visit Comments Patient Comments Pt agreeable to working w/ therapy. M4 PT-IP Mobility and Gait Start: 05/07/22 09:18 Freq: NEEDED Status: Active Protocol: Document 05/28/22 13:07 RBD (Rec: 05/28/22 13:24 RBD [id number]) PT-Bed Mobility Assessment Rolling Type of Rolling Roll to Right Level of Assist Minimal Assistance,Moderate Assistance Supine to Sit Supine to Sit Moderate Assistance,1 Person Assistance,Bedrails Scooting Scooting to Edge of Bed Contact Guard Assistance PT-Transfer Assessment Sit to and From Stand Sit to and from Stand Moderate Assistance,1 Person Assistance,2 Person Assistance ,Use of Upper Extremities Equipment Transfer Assistive Device Gait Belt,Front Wheeled Walker Orthotic/Prosthetic Devices or Brace: No Transfers Transfer Destination Chair Transfer Technique Pt ambulated w/ FWW Transfer Ability Level of Assist Moderate Assistance,1 Person Assistance,2 Person Assistance ,Use of Upper Extremities Comments Mobility Comments Pt in bed upon arrival and agreeable to ambulate. CGA for rolling and Mod A for transition to sitting, Min A and cueing required for scooting to EOB. Pt was impulsive when transitioning from sitting to standing and required mod A and Mod cueing. Ambulated in [address] and returned to chair. Left pt w/ OT. Gait Assessment Gait Gait Assistance Required: Moderate Assistance,Maximum Assistance,1 Person Assist Distance (Feet) 55 Assistive Devices Assistive Device Gait Belt,Front Wheeled Walker Orthotic/Prosthetic Devices or Brace: No Gait Deviations General Gait Pattern Ataxic,Decreased Stride Length ,Decreased Feet Clearance, Flexed Trunk,Lateral Trunk Lean,Narrow Based Gait,Step-to Gait Factors Limiting Gait Function Factors Limiting Gait Function Decreased Activity Tolerance, Decreased Strength,Difficulty Following Directions, Incoordination,Pain,Poor Balance,Poor Safety Awareness Comments Gait Comments Pt ambulted w/ FWW and Mod - Max A w/ 2 people and chair follow. He required multple seated rest breaks. Increased sicoring gait as he fatuiged. Required Mod cueing for L LE egenaestellee during ambultion. Wheel back to room on chair. PT-Balance Assessment Sitting Balance and Reactions Static Sitting Balance Ability Fair Dynamic Sitting Balance Ability Poor Standing Balance and Reactions Static Standing Balance Ability Poor Dynamic Standing Balance Ability Poor Device Used FWW M5 PT-IP Objective Assessments Start: 05/07/22 09:18 Freq: NEEDED Status: Active Protocol: Document 05/07/22 11:05 AW (Rec: 05/07/22 13:30 AW [id number]) Orientation Orientation/Cognition Level of Alertness Lethargic Orientation Name,Month,Place Safety Awareness Decreased Safety Awareness Gross Range of Motion Lower Extremity ROM Assessment Within Functional Limits Strength Lower Extremity Strength Assessment Bilaterally Impaired Comments Strength Comments R grossly 3-/5. L grossly 3+/5 Coordination Assessment Gross Coordination Gross Coordination Impaired Assessment Finger to Nose Test Activity Impossible Foot Tapping Test Minimal Impairment Coordination Comments Pt limited by BUE weakness with UE coordination testing. Sensation Assessment Sensation Gross Sensation WNL Muscle Tone Muscle Tone WNL Yes M6 PT-IP Treatment Start: 05/07/22 09:18 Freq: NEEDED Status: Active Protocol: Document 05/28/22 13:07 RBD (Rec: 05/28/22 13:24 RBD [id number]) Physical Therapy Treatment Education Education Provided Safety M7 PT-IP Assessment and Plan Start: 05/07/22 09:18 Freq: NEEDED Status: Active Protocol: Document 05/28/22 13:07 RBD (Rec: 05/28/22 13:24 RBD [id number]) PT Summary Assessment and Plan Potential Rehabilitation Potential Fair Status of Condition at Evaluation Evolving Summary Impairments Strength,Balance,Coordination, Cognition,Bed Mobility, Transfers,Gait Assessment Summary Pt showed improvements today. He was able to ambulate outside his room. Required chair assist back to room following ambulation. He required Mod- MaxA when ambulating and Mod-Max cueing for safety. He was motivated yet implosive. Pt would benefit from continued skilled therapy, and will require SNF and half-way care placement to improve functional mobility and strength. Goals Bed Mobility Goal Contact Guard Assistance Transfer Goal Standby Assistance,Front Wheeled Walker Gait Goal Standby Assistance,Front Wheel Walker Gait Distance 150 Other Goals up/down 4 steps with rails SBA - improve transfers and gait to SBA with 4WW Days to Meet Goals 10 Frequency of Treatment Frequency Of Treatment Once a Day Treatment Plan Physical Therapy Treatment Plan Bed Mobility Training,Transfer Training,Gait Training, Therapeutic Exercise,Balance Retraining,Discharge Planning, Hot or Cold Pack,Neuromuscular Re-ed,Coordination Retraining Other Recommendations and Next Treatment bed mob, sitting balance Focus activities, standing, transfers, gait using FWW chair follow. Consider using mirror for midline orientation . Precautions Other Precautions seizure precautions; falls risk Recommendations To Nursing Amount of Assist Needed 2 Person Assist Discharge Recommendations PT Discharge Recommendations SNF Rehab,LTAC Equipment Needed for Home Before FWW Discharge Transportation Needs at Discharge Stretcher/Ambulance
--- NOTE | 2022-05-28 11:42 | OT.IP.TRT ---
Current Diagnoses Depression, unspecified (05/01/22) Cerebral infarction, unspecified (05/01/22) Spinal stenosis, cervical region (05/01/22) Occupational Therapy Treatment Note M2 OT-IP Current Condition Start: 05/07/22 12:13 Freq: Status: Active Protocol: Document 05/07/22 12:13 CGR (Rec: 05/07/22 12:37 CGR [id number]) Occupational Therapy Current Condition Current Condition Evaluation Date 05/07/22 Treatment Diagnosis generalized weakness, hx IV drug use, R CVA 2015 Diagnosis Onset Date 05/01/22 M3 OT- IP Subjective and Pain Start: 05/07/22 12:13 Freq: Status: Active Protocol: Document 05/28/22 14:05 CGR (Rec: 05/28/22 14:47 CGR [id number]) OT- Subjective Occupational Therapy Visit Type Type Progress Note Visit Start Time 11:03 Visit Stop Time 11:42 Total Visit Minutes 39 Notes co-treat with p.t. OT Pain Assessment Pain When Pain Assessed At Rest M4 OT- IP ADL's Start: 05/07/22 12:13 Freq: Status: Active Protocol: Document 05/28/22 14:05 CGR (Rec: 05/28/22 14:47 CGR [id number]) OT [id number] Comments OT Self-Feeding Comments not meal time OT ADL-Grooming General Evaluation Grooming Ability Maximum Assistance Areas Needing Assistance Combing/Brushing Hair Comments OT Grooming Comments pt was able to wash face with warm cloth seated in chair. OT ADL-Oral Care General Eval Oral Care Ability Standby Assistance Areas of Assistance Brushing Teeth,Retrieving/Set- Up of Items Comments Oral Care Comments performed sitting in chair. OT ADL-Dressing Comments OT Dressing Comments not performed OT ADL-Toileting General Evaluation Toileting Ability Total Assistance Comments OT Toileting Comments pt was soiled when OT entered. social worker aide changed pt's brief. OT ADL-Bathing Comments OT Bathing Comments not performed M5 OT- IP IADL's Start: 05/07/22 12:13 Freq: Status: Active Protocol: Document 05/07/22 12:13 CGR (Rec: 05/07/22 12:37 CGR [id number]) OT-Instrumental Activities of Daily Living Deficits IADL Deficits Identified Deficits Home Safety Awareness Awareness of Need for Assistance at Home Decreased Awareness Ability to Problem Solve Emergency Unable to Problem Solve Situations Medication Management Medication Management Comments Concerns about pt's ability to perform consistently Money Management Money Management Comments Concerns about pt's ability to perform consistently Meal Preparation Meal Preparation Comments Concerns about pt's ability to perform consistently Gardening Supervisor Gardening Supervisor Comments Concerns about pt's ability to perform consistently M6 OT- IP Functional Cognition Start: 05/07/22 12:13 Freq: Status: Active Protocol: Document 05/26/22 11:29 [facility] (Rec: 05/26/22 12:15 [facility] [id number]) Cognitive Factors Limiting Selfcare Function Cognitive Ability Level of Alertness Drowsy Attention Span Ability Capable of Focused Attention, Unable to Focus,Unable to Sustain Attention Ability to Follow Commands Able to Follow One Step Commands with Increased Time, Able to Follow One Step Commands with Repetition Cognitive Comments Cognitive Assessment Comments Pt very groogy and sleep today and having trouble to stay awake and follow commands. M7 OT- IP Mobility and Balance Start: 05/07/22 12:13 Freq: Status: Active Protocol: Document 05/28/22 14:05 CGR (Rec: 05/28/22 14:47 CGR [id number]) OT- Bed Mobility Assessment Supine to Sit Supine to Sit Assist Minimal Assistance,Moderate Assistance,1 Person Assistance Scooting Scooting to Edge of Bed Contact Guard Assistance OT-Transfer Assessment Sit to and From Stand Sit to and from Stand Minimal Assistance,Moderate Assistance,1 Person Assistance ,2 Person Assistance Transfers Transfer Ability Minimal Assistance,Moderate Assistance,Maximum Assistance, 2 Person Assistance Technique Transfer Destination Bed,Chair Transfer Technique Stand Step Pivot Devices Transfer Assistive Devices Gait Belt,Front Wheeled Walker Comments Mobility Comments Pt ambulated ~50 to 60 feet on this day with 2 person assist that ranged from min to max a with his mobilizations. Pt fatigued and required more assist but was very motivated to continue. Pt's R LE started dragging and pt tripped on it twice in the session. See p.t . note for more information. OT- Gait Assessment Comments Gait Ability Comments see p.t. note for further information OT- Balance Assessment Sitting Balance and Reactions Static Sitting Balance Ability Fair Dynamic Sitting Balance Ability Fair M8 OT- IP Objective Assessments Start: 05/07/22 12:13 Freq: Status: Active Protocol: Document 05/07/22 12:13 CGR (Rec: 05/07/22 12:37 CGR [id number]) OT Gross Range of Motion Upper Extremity Range of Motion ROM Impairments AAROM WFL OT Strength Upper Extremity Strength Assessment Bilaterally Impaired Comments Strength Comments R weaker than L R grossly 2/5 L grossly 2+ to 3-/5 OT- Coordination Assessment Upper Extremity Finger to Nose Test Bilateral UE Impaired Finger Tapping Test Bilateral UE Impaired OT-Muscle Tone Assessment Muscle Tone WNL Yes OT Sensation Assessment Edema Edema Absent M9 OT- IP Assessment and Plan Start: 05/07/22 12:13 Freq: Status: Active Protocol: Document 05/28/22 14:05 CGR (Rec: 05/28/22 14:47 CGR [id number]) OT Summary Assessment and Plan Potential Rehabilitation Potential Fair Analytic Complexity at Evaluation High Summary OT Impairments Pain,Strength,Balance, Coordination,Functional Cognition,Functional Mobility, Self-Feeding,Grooming,Dressing ,Toileting,Bathing,Toilet Transfers,Shower Transfers, Activity Tolerance Progress Towards Goals Slow Progress due to Pain,Slow Progress due to Medical Issues,Slow Progress due to Activity Tolerance Assessment Summary Pt appeared highly motivated today stating I am ready to dance. Pt ambulated significantly further than previous attempts today and needed multiple explanations of safety for him to allow us to wheel him back to his room vs walking back. Pt then performed ADLs seated in chair . Pt crying at end of session but states thank you for everything. Pt is progressing with therapy. Goals Self-Feeding Goal Standby Assistance Grooming Goal Minimal Assistance Dressing Goal Moderate Assistance Toileting Goal Moderate Assistance Bathing Goal Moderate Assistance Toilet Transfer Goal Minimal Assistance Shower Transfer Goal Minimal Assistance Days to Meet Goals 41 Frequency of Treatment Frequency Of Treatment Once a Day Treatment Plan OT Treatment Plan ADL Training,Functional Cognition Training,Functional Mobility,Neuromuscular Re- education,Therapeutic Exercises,Patient/Family Education,Discharge Planning Other Treatment Recommendations and Next sitting balance with ADLs Treatment Focus Discharge Recommendations OT Discharge Recommendations SNF Rehab,[facility] Transportation Needs at Discharge Stretcher/Ambulance
[2022-05-28 12:00] VITALS: BP 119/75; PULSE 75; RESP 19; TEMP 36.7; O2SAT 98
--- NOTE | 2022-05-28 13:11 | P.PN_ITS ---
Subjective Subjective Date Patient Seen: 05/28/22 Interval history: 62-year-old gentleman with underlying substance dependence, prior stroke with right-sided weakness, depression, chronic back pain, and asthma who is presently hospital day 19 initially admitted with concern for worsening stroke symptoms and altered mental status. Patient is awaiting appropriate placement which has been made difficult by his substance abuse. He reports since Cymbalta and gabapentin his neck no longer hurts. He continues to have right arm pain. He states his appetite has improved and his sleep has improved. He reports that he is feeling constipated. It was hard for him to have a bowel movement yesterday and it was 3-4 days prior that he had his previous BM. He states this is unusual for him. He became quite tearful while I was in the room. He expresses gratitude for being in the hospital and getting the care he is receiving. Exam Vital Signs (past 8 hours): - 05/28/22 08:08 05/28/22 12:00 Temperature 98.1 F Pulse Rate 75 Respiratory Rate 19 Blood Pressure 119/75 Pulse Oximetry 98 Oxygen Delivery Method Room Air Oxygen Flow Rate 0 Oxygen Delivery Method Room Air Oxygen Flow Rate 0 Narrative Exam Narrative: GEN: Middle-aged male, very thin, temporal wasting, Alert and oriented x 3, NAD HEENT:NC, Face symmetric CHEST: Respiratory excursions symmetric, CTAB CV: RRR, no M/R/G ABD: Soft, NT/ND, BT present in all 4 quadrants, no organomegaly or masses EXTR: warm, well perfused, no C/C/E, right upper extremity remains weak, poor mobility SKIN: warm and dry, no rash NEURO: Alert and oriented x 3, nonfocal Objective Labs Result Diagrams: 05/23/22 21:21 05/26/22 11:03 [facility] Medical History Asthma Chronic back pain greater than 3 months duration Closed intertrochanteric fracture of left femur Depression Drug abuse, IV History of CVA (cerebrovascular accident) Surgical History History of hernia repair Family History Father Unknown family medical history Mother No problems noted. Grandmother Myocardial infarction Grandfather No problems noted. Social History household members: friend(s) Smoking Status: Current some day smoker alcohol intake: current Assessment & Plan Assessment & Plan narrative: 1.? Weakness Patient appears to be chronically debilitated.? No evidence of new stroke on 2 different brain MRIs.? C-spine MRI did reveal some chronic pathology but no acute cord compression.? Orthopedic surgery consulted and recommended outpatient follow-up with Neurosurgery.? Acetylcholine antibodies and?DIXIE negative.? Remains on cymbalta since 05/18. Gabapentin initiated 05/21. Pt was quite tearful today, but overall appears to have a brighter affect. Therapy to provide resistance bands and stress ball for him to use in his room for UE strengthening. 2. Altered mental status / metabolic encephalopathy Patient appears to be at baseline.? No evidence for withdrawal presently.? He is working with therapies on a daily basis. 3. Hypertension Presently normotensive, not on therapy. 4. Hyperlipidemia Continue atorvastatin 5. Polysubstance dependence Although patient was intoxicated on admission, he has been?hospitalized for 27 days.? There was evident concern early on that people were bringing controlled substances into the hospital.? However,? he has had restricted visitation since that time. 6.? Oral thrush Resolved. 7. Prior stroke with residual right-sided weakness Patient remains on atorvastatin 40 mg, aspirin 81 mg. 8. Microcytic anemia MCV is up to 71.? Hemoglobin is 11.? 9. Hepatitis C Hep C ab positive. Hep C RNA >1 million. Will need outpatient f/u. Resolved issues: Acute respiratory failure d/t pneumonia ? Code status Full ?prophylaxis On Lovenox ?Disposition Pending placement.? Therapy reports he did well today, now 1 person assist (was 2 person prior) and was asking about taking a shower today. Time Spent With Patient Critical Care time: I spent a total of [] minutes of critical care time on this patient's care today; this time is exclusive of procedural time. Quality VTE Deep Vein Thrombosis/Pulmonary Embolism Present on Admission: No
[2022-05-28 14:00] VITALS: BP 131/91; PULSE 87
[2022-05-28] MEDS: DOCUSATE 100 MG CAPSULE PO ×2 (14:11→21:02)
[2022-05-28] MEDS: SENNOSIDES 8.6 MG TABLET PO ×2 (14:11→21:02)
[2022-05-28] MEDS: HYDROCODONE/ACET 5/325 TABLET 1 TAB PO ×2 (15:14→21:00)
[2022-05-28 18:00] VITALS: BP 136/90; PULSE 90; RESP 19; TEMP 36.8; O2SAT 97
[2022-05-28 20:15] VITALS: BP 122/82; PULSE 87; RESP 14; TEMP 36.4; O2SAT 98
[2022-05-28] MEDS: ATORVASTATIN 20 MG TABLET 40 MG PO (21:03)
[2022-05-29] MEDS: HYDROCODONE/ACET 5/325 TABLET 1 TAB PO ×5 (01:22→23:19)
[2022-05-29 01:35] VITALS: BP 126/77; PULSE 69; RESP 14; TEMP 36.2; O2SAT 98
[2022-05-29] MEDS: LORazepam 1 MG TABLET 0.5 MG PO ×2 (05:31→20:49)
[2022-05-29 07:00] VITALS: BP 129/73; PULSE 68; RESP 16; TEMP 35.6; O2SAT 97
--- NOTE | 2022-05-29 07:56 | P.PN_ITS ---
Subjective Subjective Date Patient Seen: 05/28/22 Interval history: Still having significant pain in his right arm which he described as hooks stuck in his fingers with associated numbness. Exam Vital Signs (past 8 hours): - 05/29/22 01:35 Temperature 97.1 F L Pulse Rate 69 Respiratory Rate 14 Blood Pressure 126/77 Pulse Oximetry 98 Oxygen Flow Rate 0 Oxygen Delivery Method Room Air Oxygen Flow Rate 0 Narrative Exam Narrative: GEN: Middle-aged male, very thin, temporal wasting, Alert and oriented x 3, NAD HEENT:NC, Face symmetric CHEST: Respiratory excursions symmetric, CTAB CV: RRR, no M/R/G ABD: Soft, NT/ND, BT present in all 4 quadrants, no organomegaly or masses EXTR: warm, well perfused, no C/C/E, right upper extremity remains weak, poor mobility SKIN: warm and dry, no rash NEURO: Alert and oriented x 3, right arm with decreased strenth and sensation in hand and fingers Objective Labs Result Diagrams: 05/23/22 21:21 05/26/22 11:03 [facility] Medical History Asthma Chronic back pain greater than 3 months duration Closed intertrochanteric fracture of left femur Depression Drug abuse, IV History of CVA (cerebrovascular accident) Surgical History History of hernia repair Family History Father Unknown family medical history Mother No problems noted. Grandmother Myocardial infarction Grandfather No problems noted. Social History household members: friend(s) Smoking Status: Current some day smoker alcohol intake: current Assessment & Plan Assessment & Plan narrative: 1.? Weakness Patient appears to be chronically debilitated.? No evidence of new stroke on 2 different brain MRIs.? C-spine MRI did reveal some chronic pathology but no acute cord compression.? Orthopedic surgery consulted and recommended outpatient follow-up with Neurosurgery.? Acetylcholine antibodies and?DIXIE negative.? Remains on cymbalta since 05/18. Gabapentin initiated 05/21. Continues to have pain which the norco helps but wears off after 3 hours. Change norco to q3h instead of q4h. 2. Altered mental status / metabolic encephalopathy Patient appears to be at baseline.? No evidence for withdrawal presently.? He is working with therapies on a daily basis. 3. Hypertension Presently normotensive, not on therapy. 4. Hyperlipidemia Continue atorvastatin 5. Polysubstance dependence Although patient was intoxicated on admission, he has been?hospitalized for over 25 days.? There was evident concern early on that people were bringing controlled substances into the hospital.? However,? he has had restricted visitation since that time. 6.? Oral thrush Resolved. 7. Prior stroke with residual right-sided weakness Patient remains on atorvastatin 40 mg, aspirin 81 mg. 8. Microcytic anemia MCV is up to 71.? Hemoglobin is 11.? 9. Hepatitis C Hep C ab positive. Hep C RNA >1 million. Will need outpatient f/u. Resolved issues: Acute respiratory failure d/t pneumonia ? Code status Full ?prophylaxis On Lovenox ?Disposition Pending placement.? Currently 1 person assist per PT. Time Spent With Patient Critical Care time: I spent a total of [] minutes of critical care time on this patient's care today; this time is exclusive of procedural time. Quality VTE Deep Vein Thrombosis/Pulmonary Embolism Present on Admission: No
[2022-05-29] MEDS: DULOXETINE 30 MG CAPSULE PO (08:25)
[2022-05-29] MEDS: GABAPENTIN 300 MG CAPSULE PO ×3 (08:25→20:33)
[2022-05-29] MEDS: ASPIRIN EC 81 MG TABLET PO (08:25)
[2022-05-29] MEDS: DOCUSATE 100 MG CAPSULE PO ×2 (08:25→20:33)
[2022-05-29] MEDS: FOLIC ACID 1 MG TABLET PO (08:25)
[2022-05-29] MEDS: ENOXAPARIN 40 MG/0.4 ML SYRINGE SUBCUT (08:25)
[2022-05-29] MEDS: MULTIVITAMIN 1 TABLET 1 TAB PO (08:26)
[2022-05-29] MEDS: PANTOPRAZOLE DR 40 MG TABLET PO ×2 (08:26→20:33)
[2022-05-29] MEDS: NICOTINE 7 MG PATCH TOP (08:26)
[2022-05-29] MEDS: SENNOSIDES 8.6 MG TABLET PO ×2 (08:26→20:33)
--- NOTE | 2022-05-29 10:47 | ST.IPDYTX ---
Visit Care Team Role Provider Type Amarilis Alcantara MD Other Providers Physician Specialty: Orthopedics Orthopedic Surgery Address: [address] [place], [address] Email: [email or web address] Julito Richmond MD Other Providers Physician Specialty: Psychiatry Address: [facility] [facility] [facility] [facility], [address], [place], [address] Email: [email or web address] Kenney Joshi MD Family Provider Non-Staff Primary Care Provider Specialty: Family Practice Address: [address], [address], [place], [address] Email: Richard Hannon DO Emergency Provider Physician Referring Provider Specialty: Emergency Medicine Address: [address] [place] [address], [address] Email: [email or web address] JONATHAN Sampson Admit Provider Physician Attending Provider Specialty: Internal Medicine Address: [address] [place] [address], [address] Email: [email or web address] ONLINE TRADER Dysphagia Treatment ONLINE TRADER Clinical Instructor Line Start: 05/07/22 11:09 Freq: Status: Active Protocol: Document 05/17/22 11:23 MG (Rec: 05/17/22 11:24 MG [id number]) Clinical Instructor Signature Clinical Instructor Clinical Instructor Yes: Yarelis Foster MA, [facility]-ONLINE TRADER ONLINE TRADER Dysphagia Treatment Start: 05/07/22 09:45 Freq: Status: Active Protocol: Document 05/29/22 10:40 MG (Rec: 05/29/22 10:47 MG [id number]) Dysphagia Treatment Session Time Visit Start Time 09:10 Visit Stop Time 09:25 Total Visit Minutes 15 Setting Assessment Location Acute Care Visit Type Note Type Treatment Note Next Note Type Next Note Type Treatment Note Patient Information Identification Type Name,ID Wristband Subjective Observations Pt was reclined in bed upon ONLINE TRADER arrival. Pt was agreeable to working with ONLINE TRADER on this day. Per ONLINE TRADER observation, his voice appears stronger and louder than previous session and he was very motivated to get better. Treatment Administration Type Straw,Dependent Feeding Oral Strategies Upright at 90 degrees, Controlled Bite/Sip Size, Alternate Liquids/Solids Pharyngeal Strategies Sitting Upright (90 deg), Double Swallow,Small Bites and Sips Treatment Activities Laryngeal palpation indicated adequate movement still. Went over reminders for safe swallow strategies (i.e., take small bites/sips, eat/drink at a slow rate) which pt reported he tries to remember and do when he's eating/ drinking. Per the pt, he is eating more and tolerating well. When ONLINE TRADER checked in with staff over the weekend and today, the nurses reported the pt is tolerating his diet and no concerns with overt aspiration at this time. Assessment Patient Response to Treatment Good Rehab Potential Good Assessment of Improvement Pt appeared to have no concerns when tolerated solids /liquids trialed at this time. Diet upgrade appears to be effective at this time and continue to recommend current diet. Diet Recommendations Recommendations Continue Current Diet Liquids Order Thin Diet Order Dysphagia Advanced Medication Recommendations As Tolerated,Whole in Carrier Additional Dietary Needs Single Sips,Controlled Sips,1: 1 Supervision,Encourage to Self-Feed,Reminders to Use Strategies Aspiration Precautions Recommended Precautions Upright at 90 Degrees,Frequent Rest Periods,Small Bites/Sips ,Chin Tuck,Check for Pocketing Treatment Plan Placement Recommendation after Discharge [facility] Appropriate for Continued Therapy Yes Therapy Recommendations Continue to see 1x daily over course of hospital stay to monitor progress and further assess/treat deficits as needed. Dysphagia Goals Pt to participate in ongoing evaluation of swallow safety with diet advancement as appropriate. Pt will safely tolerate least restrictive diet to meet his nutrition and hydration needs
--- NOTE | 2022-05-29 11:10 | OT.IP.TRT ---
Current Diagnoses Depression, unspecified (05/01/22) Cerebral infarction, unspecified (05/01/22) Spinal stenosis, cervical region (05/01/22) Occupational Therapy Treatment Note M2 OT-IP Current Condition Start: 05/07/22 12:13 Freq: Status: Active Protocol: Document 05/07/22 12:13 CGR (Rec: 05/07/22 12:37 CGR [id number]) Occupational Therapy Current Condition Current Condition Evaluation Date 05/07/22 Treatment Diagnosis generalized weakness, hx IV drug use, R CVA 2016 Diagnosis Onset Date 05/01/22 M3 OT- IP Subjective and Pain Start: 05/07/22 12:13 Freq: Status: Active Protocol: Document 05/29/22 11:41 CGR (Rec: 05/29/22 12:14 CGR [id number]) OT- Subjective Occupational Therapy Visit Type Type Progress Note Visit Start Time 10:40 Visit Stop Time 11:10 Total Visit Minutes 30 Notes co-treat with P.T. Occupational Therapy Visit Comments Patient Comments I am ready to run! OT Pain Assessment Pain When Pain Assessed At Rest Pain Present Pain Present Denied Pain M4 OT- IP ADL's Start: 05/07/22 12:13 Freq: Status: Active Protocol: Document 05/29/22 11:41 CGR (Rec: 05/29/22 12:14 CGR [id number]) OT [id number] Comments OT Self-Feeding Comments not meal time OT ADL-Grooming General Evaluation Grooming Ability Maximum Assistance Areas Needing Assistance Combing/Brushing Hair Comments OT Grooming Comments brushed hair up into ponytail for ambulation OT ADL-Oral Care Comments Oral Care Comments not performed OT ADL-Dressing Comments OT Dressing Comments not performed OT ADL-Toileting Comments OT Toileting Comments not performed OT ADL-Bathing Comments OT Bathing Comments pt requesting to shower but too fatigued after ambulation. M5 OT- IP IADL's Start: 05/07/22 12:13 Freq: Status: Active Protocol: Document 05/07/22 12:13 CGR (Rec: 05/07/22 12:37 CGR [id number]) OT-Instrumental Activities of Daily Living Deficits IADL Deficits Identified Deficits Home Safety Awareness Awareness of Need for Assistance at Home Decreased Awareness Ability to Problem Solve Emergency Unable to Problem Solve Situations Medication Management Medication Management Comments Concerns about pt's ability to perform consistently Money Management Money Management Comments Concerns about pt's ability to perform consistently Meal Preparation Meal Preparation Comments Concerns about pt's ability to perform consistently Internet Architect Internet Architect Comments Concerns about pt's ability to perform consistently M6 OT- IP Functional Cognition Start: 05/07/22 12:13 Freq: Status: Active Protocol: Document 05/29/22 11:41 CGR (Rec: 05/29/22 12:14 CGR [id number]) Cognitive Factors Limiting Selfcare Function Cognitive Ability Level of Alertness Alert Patient Orientation Name,Age,Birthday,Month,Date, Year,Day of Week,Place, Situation Attention Span Ability Capable of Focused Attention, Capable of Sustained Attention Ability to Follow Commands Able to Follow Multi-Step Commands M7 OT- IP Mobility and Balance Start: 05/07/22 12:13 Freq: Status: Active Protocol: Document 05/29/22 11:41 CGR (Rec: 05/29/22 12:14 CGR [id number]) OT- Bed Mobility Assessment Supine to Sit Supine to Sit Assist Contact Guard Assistance Scooting Scooting to Edge of Bed Contact Guard Assistance OT-Transfer Assessment Sit to and From Stand Sit to and from Stand Minimal Assistance,2 Person Assistance Transfers Transfer Ability Moderate Assistance,2 Person Assistance Technique Transfer Destination Bed,Car Transfer Technique Stand Step Pivot Devices Transfer Assistive Devices Gait Belt,Front Wheeled Walker OT- Gait Assessment Gait Gait Assistance Required: Moderate Assistance,2 Person Assist Assistive Devices Assistive Device Gait Belt,Front Wheeled Walker Comments Gait Ability Comments see p.t. note for distance. Pt ambulated out into hallway with mod x 2 and still with shaky steps. OT- Balance Assessment Sitting Balance and Reactions Static Sitting Balance Ability Good Dynamic Sitting Balance Ability Fair M8 OT- IP Objective Assessments Start: 05/07/22 12:13 Freq: Status: Active Protocol: Document 05/07/22 12:13 CGR (Rec: 05/07/22 12:37 CGR [id number]) OT Gross Range of Motion Upper Extremity Range of Motion ROM Impairments AAROM WFL OT Strength Upper Extremity Strength Assessment Bilaterally Impaired Comments Strength Comments R weaker than L R grossly 2/5 L grossly 2+ to 3-/5 OT- Coordination Assessment Upper Extremity Finger to Nose Test Bilateral UE Impaired Finger Tapping Test Bilateral UE Impaired OT-Muscle Tone Assessment Muscle Tone WNL Yes OT Sensation Assessment Edema Edema Absent M9 OT- IP Assessment and Plan Start: 05/07/22 12:13 Freq: Status: Active Protocol: Document 05/29/22 11:41 CGR (Rec: 05/29/22 12:14 CGR [id number]) OT Summary Assessment and Plan Potential Rehabilitation Potential Fair Analytic Complexity at Evaluation High Summary OT Impairments Pain,Strength,Balance, Coordination,Functional Cognition,Functional Mobility, Self-Feeding,Grooming,Dressing ,Toileting,Bathing,Toilet Transfers,Shower Transfers, Activity Tolerance Progress Towards Goals Slow Progress due to Pain,Slow Progress due to Medical Issues,Slow Progress due to Activity Tolerance Assessment Summary Pt appeared highly motivated today stating I am ready to run. Pt ambulated out into bradley with mod x 2 and better control with mobility today than yesterday. Pt fatigued at end of session. Pt left sitting up in chair. Call button within reach and all needs at time met. Goals Self-Feeding Goal Standby Assistance Grooming Goal Minimal Assistance Dressing Goal Moderate Assistance Toileting Goal Moderate Assistance Bathing Goal Moderate Assistance Toilet Transfer Goal Minimal Assistance Shower Transfer Goal Minimal Assistance Days to Meet Goals 41 Frequency of Treatment Frequency Of Treatment Once a Day Treatment Plan OT Treatment Plan ADL Training,Functional Cognition Training,Functional Mobility,Neuromuscular Re- education,Therapeutic Exercises,Patient/Family Education,Discharge Planning Other Treatment Recommendations and Next sitting balance with ADLs Treatment Focus Discharge Recommendations OT Discharge Recommendations SNF Rehab,LTAC Transportation Needs at Discharge Wheelchair/Cabulance
--- NOTE | 2022-05-29 11:10 | PT.IPTN ---
Current Diagnoses Depression, unspecified (05/01/22) Cerebral infarction, unspecified (05/01/22) Spinal stenosis, cervical region (05/01/22) Physical Therapy Treatment Note M2 PT-IP Current Condition Start: 05/07/22 09:18 Freq: NEEDED Status: Active Protocol: Document 05/18/22 13:22 SP (Rec: 05/18/22 16:05 SP [id number]) Physical Therapy Current Condition Current Condition Evaluation Date 05/07/22 Treatment Diagnosis metabolic encephalopathy; polysubstance withdrawal; impaired mobility Onset Date 04/30/22 M3 PT-IP Subjective Start: 05/07/22 09:18 Freq: NEEDED Status: Active Protocol: Document 05/29/22 10:40 KS (Rec: 05/29/22 12:12 KS [id number]) Subjective Physical Therapy Visit Type Type Treatment Note Visit Start Time 10:40 Visit Stop Time 11:10 Total Visit Minutes 30 Notes co-treat w/ OT. Number of GLUE MACHINE OPERATOR Visits 5 Physical Therapy Visit Comments Patient Comments Pt agreeable to working w/ therapy. M4 PT-IP Mobility and Gait Start: 05/07/22 09:18 Freq: NEEDED Status: Active Protocol: Document 05/29/22 10:40 KS (Rec: 05/29/22 12:12 KS [id number]) PT-Bed Mobility Assessment Rolling Type of Rolling Roll to Right Level of Assist Minimal Assistance,1 Person Assistance Supine to Sit Supine to Sit Contact Guard Assistance,Head of Bed Elevated,Bedrails Scooting Scooting to Edge of Bed Contact Guard Assistance PT-Transfer Assessment Sit to and From Stand Sit to and from Stand Minimal Assistance,2 Person Assistance,Use of Upper Extremities Equipment Transfer Assistive Device Gait Belt,Front Wheeled Walker Orthotic/Prosthetic Devices or Brace: No Transfers Transfer Destination Chair,Wheelchair Transfer Technique Pt ambulated w/ FWW Transfer Ability Level of Assist Moderate Assistance,2 Person Assistance,Use of Upper Extremities Comments Mobility Comments Pt in bed upon arrival and agreeable to working w/ therapy. CGA for logroll and sup<>sit and scooting EOB. Min A x2 and verbal and tactile cues for sit<>stand w/ FWW. Pt ambulated ~15 ft to hallway Mod A x2 w/ FWW, took seated rest break and then ambulated 4 additional bouts of ~30 ft ambulation w/ Mod A x2 and w/c follow. Pt needs constant assist to maintain standing balance and frequent cues for step sequencing and upright posture. Pt returned to room and chair Mod A x2 and left in chair w/ all needs in reach. Gait Assessment Gait Gait Assistance Required: Moderate Assistance,2 Person Assist Distance (Feet) 30 Assistive Devices Assistive Device Gait Belt,Front Wheeled Walker Orthotic/Prosthetic Devices or Brace: No Gait Deviations General Gait Pattern Ataxic,Decreased Stride Length ,Decreased Feet Clearance, Flexed Trunk,Lateral Trunk Lean,Narrow Based Gait,Step-to Gait Factors Limiting Gait Function Factors Limiting Gait Function Decreased Activity Tolerance, Decreased Strength,Difficulty Following Directions, Incoordination,Pain,Poor Balance,Poor Safety Awareness Comments Gait Comments Pt ambulatd 4x 30 ft w/ FWW Mod A x2 and w/c follow w/ seated rest breaks every ~30 ft due to increased instability and scissoring gait. Frequent verbal cues for upright posture, step sequence, equal step length and FWW management. Pt unable to maintain standing balance on his own requiring assist at all times. PT-Balance Assessment Sitting Balance and Reactions Static Sitting Balance Ability Fair Dynamic Sitting Balance Ability Fair Standing Balance and Reactions Static Standing Balance Ability Poor Dynamic Standing Balance Ability Poor Device Used FWW M5 PT-IP Objective Assessments Start: 05/07/22 09:18 Freq: NEEDED Status: Active Protocol: Document 05/07/22 11:05 AW (Rec: 05/07/22 13:30 AW [id number]) Orientation Orientation/Cognition Level of Alertness Lethargic Orientation Name,Month,Place Safety Awareness Decreased Safety Awareness Gross Range of Motion Lower Extremity ROM Assessment Within Functional Limits Strength Lower Extremity Strength Assessment Bilaterally Impaired Comments Strength Comments R grossly 3-/5. L grossly 3+/5 Coordination Assessment Gross Coordination Gross Coordination Impaired Assessment Finger to Nose Test Activity Impossible Foot Tapping Test Minimal Impairment Coordination Comments Pt limited by BUE weakness with UE coordination testing. Sensation Assessment Sensation Gross Sensation WNL Muscle Tone Muscle Tone WNL Yes M6 PT-IP Treatment Start: 05/07/22 09:18 Freq: NEEDED Status: Active Protocol: Document 05/29/22 10:40 KS (Rec: 05/29/22 12:12 KS [id number]) Physical Therapy Treatment Education Education Provided Safety M7 PT-IP Assessment and Plan Start: 05/07/22 09:18 Freq: NEEDED Status: Active Protocol: Document 05/29/22 10:40 KS (Rec: 05/29/22 12:12 KS [id number]) PT Summary Assessment and Plan Potential Rehabilitation Potential Fair Status of Condition at Evaluation Evolving Summary Impairments Strength,Balance,Coordination, Cognition,Bed Mobility, Transfers,Gait Assessment Summary Pt showing progress w/ mobility and actviity tolerance today. Able to ambulate 4x 30 ft w/ FWW, but still requiring Mod A x2, w/c follow, seated rest breaks, and frequent cues. Highly motivated, but remains impulsive. Responsive to cues to be intentional about movements and safety. Pt would benefit from continued skilled therapy, and will require SNF and long-term care placement to improve functional mobility and strength. Goals Bed Mobility Goal Contact Guard Assistance Transfer Goal Standby Assistance,Front Wheeled Walker Gait Goal Standby Assistance,Front Wheel Walker Gait Distance 150 Other Goals up/down 4 steps with rails SBA - improve transfers and gait to SBA with 4WW Days to Meet Goals 10 Frequency of Treatment Frequency Of Treatment Once a Day Treatment Plan Physical Therapy Treatment Plan Bed Mobility Training,Transfer Training,Gait Training, Therapeutic Exercise,Balance Retraining,Discharge Planning, Hot or Cold Pack,Neuromuscular Re-ed,Coordination Retraining Other Recommendations and Next Treatment bed mob, sitting balance Focus activities, standing, transfers, gait using FWW chair follow. Consider using mirror for midline orientation . Precautions Other Precautions seizure precautions; falls risk Recommendations To Nursing Amount of Assist Needed 2 Person Assist Discharge Recommendations PT Discharge Recommendations SNF Rehab,LTAC Equipment Needed for Home Before FWW Discharge Transportation Needs at Discharge Stretcher/Ambulance
[2022-05-29 11:50] VITALS: BP 117/57; PULSE 84; RESP 18; TEMP 36.2; O2SAT 96
--- NOTE | 2022-05-29 14:23 | CM.DPC ---
Discharge planning note: Met with patient in room. Patient working with S.T. She states he is improving. He is talking better today. Asked him to sign the consent papers sent by Maria Fernanda ([facility]) and then faxed to Maria Fernanda. Informed him of status of our search for placement and the [facility] application timeline. He is asking if he could go to [facility] as he did in the past. Mentioned this was not an option for him at this time due to his physical status. P: Continue search for accepting facilities. Stay in touch with Maria Fernanda as to the status of application. Patient says he likes the [facility] because they have sober living resources. Jaz Collins RN/DCP
[2022-05-29 18:00] VITALS: BP 142/89; PULSE 97; RESP 18; TEMP 36.3; O2SAT 97
[2022-05-29] MEDS: ATORVASTATIN 20 MG TABLET 40 MG PO (20:33)
[2022-05-30] VITALS (7 sets, daily range): BP systolic 125–150; BP diastolic 62–97; PULSE 68–94; RESP 17–20; TEMP 35.8–37; O2SAT 94–98
[2022-05-30] MEDS: HYDROCODONE/ACET 5/325 TABLET 1 TAB PO ×4 (05:25→20:35)
[2022-05-30] MEDS: SENNOSIDES 8.6 MG TABLET PO (08:20)
[2022-05-30] MEDS: GABAPENTIN 300 MG CAPSULE PO ×2 (08:20→14:01)
[2022-05-30] MEDS: NICOTINE 7 MG PATCH TOP (08:20)
[2022-05-30] MEDS: MULTIVITAMIN 1 TABLET 1 TAB PO (08:20)
[2022-05-30] MEDS: PANTOPRAZOLE DR 40 MG TABLET PO ×2 (08:20→20:36)
[2022-05-30] MEDS: DULOXETINE 30 MG CAPSULE PO (08:20)
[2022-05-30] MEDS: ENOXAPARIN 40 MG/0.4 ML SYRINGE SUBCUT (08:20)
[2022-05-30] MEDS: DOCUSATE 100 MG CAPSULE PO (08:21)
[2022-05-30] MEDS: ASPIRIN EC 81 MG TABLET PO (08:21)
[2022-05-30] MEDS: FOLIC ACID 1 MG TABLET PO (08:21)
--- NOTE | 2022-05-30 11:13 | OT.IP.TRT ---
Current Diagnoses Depression, unspecified (05/01/22) Cerebral infarction, unspecified (05/01/22) Spinal stenosis, cervical region (05/01/22) Occupational Therapy Treatment Note M2 OT-IP Current Condition Start: 05/07/22 12:13 Freq: Status: Active Protocol: Document 05/07/22 12:13 CGR (Rec: 05/07/22 12:37 CGR [id number]) Occupational Therapy Current Condition Current Condition Evaluation Date 05/07/22 Treatment Diagnosis generalized weakness, hx IV drug use, R CVA 2016 Diagnosis Onset Date 05/01/22 M3 OT- IP Subjective and Pain Start: 05/07/22 12:13 Freq: Status: Active Protocol: Document 05/30/22 11:19 CGR (Rec: 05/30/22 11:31 CGR [id number]) OT- Subjective Occupational Therapy Visit Type Type Progress Note Visit Start Time 10:47 Visit Stop Time 11:13 Total Visit Minutes 26 Notes co-treat with P.t. OT Pain Assessment Pain When Pain Assessed At Rest Pain Present Pain Present Denied Pain M4 OT- IP ADL's Start: 05/07/22 12:13 Freq: Status: Active Protocol: Document 05/29/22 11:41 CGR (Rec: 05/29/22 12:14 CGR [id number]) OT [id number] Comments OT Self-Feeding Comments not meal time OT ADL-Grooming General Evaluation Grooming Ability Maximum Assistance Areas Needing Assistance Combing/Brushing Hair Comments OT Grooming Comments brushed hair up into ponytail for ambulation OT ADL-Oral Care Comments Oral Care Comments not performed OT ADL-Dressing Comments OT Dressing Comments not performed OT ADL-Toileting Comments OT Toileting Comments not performed OT ADL-Bathing Comments OT Bathing Comments pt requesting to shower but too fatigued after ambulation. M5 OT- IP IADL's Start: 05/07/22 12:13 Freq: Status: Active Protocol: Document 05/07/22 12:13 CGR (Rec: 05/07/22 12:37 CGR [id number]) OT-Instrumental Activities of Daily Living Deficits IADL Deficits Identified Deficits Home Safety Awareness Awareness of Need for Assistance at Home Decreased Awareness Ability to Problem Solve Emergency Unable to Problem Solve Situations Medication Management Medication Management Comments Concerns about pt's ability to perform consistently Money Management Money Management Comments Concerns about pt's ability to perform consistently Meal Preparation Meal Preparation Comments Concerns about pt's ability to perform consistently Cuffer Cuffer Comments Concerns about pt's ability to perform consistently M6 OT- IP Functional Cognition Start: 05/07/22 12:13 Freq: Status: Active Protocol: Document 05/29/22 11:41 CGR (Rec: 05/29/22 12:14 CGR [id number]) Cognitive Factors Limiting Selfcare Function Cognitive Ability Level of Alertness Alert Patient Orientation Name,Age,Birthday,Month,Date, Year,Day of Week,Place, Situation Attention Span Ability Capable of Focused Attention, Capable of Sustained Attention Ability to Follow Commands Able to Follow Multi-Step Commands M7 OT- IP Mobility and Balance Start: 05/07/22 12:13 Freq: Status: Active Protocol: Document 05/30/22 11:19 CGR (Rec: 05/30/22 11:31 CGR [id number]) OT-Transfer Assessment Sit to and From Stand Sit to and from Stand Minimal Assistance,Moderate Assistance,2 Person Assistance Transfers Transfer Ability Minimal Assistance,Moderate Assistance,2 Person Assistance Technique Transfer Destination Chair Transfer Technique Stand Step Pivot Devices Transfer Assistive Devices Gait Belt,Front Wheeled Walker Comments Mobility Comments Pt needed min to mod x 2 for sit to stand from chair and progressively needed more assist throughout session as pt fatigued. OT- Gait Assessment Gait Gait Assistance Required: Minimum Assistance,Moderate Assistance,Maximum Assistance, 2 Person Assist Assistive Devices Assistive Device Gait Belt,Front Wheeled Walker Comments Gait Ability Comments Pt ambulated in bradley with 2 person assist. Pt needs min to max x 2 depending on fatigue. Pt performed longer stretches without breaks in todays session and went slightly further than yesterday (see p. t. note for distances). Pt is highly motivated during mobility. OT- Balance Assessment Sitting Balance and Reactions Static Sitting Balance Ability Good Dynamic Sitting Balance Ability Fair M8 OT- IP Objective Assessments Start: 05/07/22 12:13 Freq: Status: Active Protocol: Document 05/07/22 12:13 CGR (Rec: 05/07/22 12:37 CGR [id number]) OT Gross Range of Motion Upper Extremity Range of Motion ROM Impairments AAROM WFL OT Strength Upper Extremity Strength Assessment Bilaterally Impaired Comments Strength Comments R weaker than L R grossly 2/5 L grossly 2+ to 3-/5 OT- Coordination Assessment Upper Extremity Finger to Nose Test Bilateral UE Impaired Finger Tapping Test Bilateral UE Impaired OT-Muscle Tone Assessment Muscle Tone WNL Yes OT Sensation Assessment Edema Edema Absent M9 OT- IP Assessment and Plan Start: 05/07/22 12:13 Freq: Status: Active Protocol: Document 05/30/22 11:19 CGR (Rec: 05/30/22 11:31 CGR [id number]) OT Summary Assessment and Plan Potential Rehabilitation Potential Fair Analytic Complexity at Evaluation High Summary OT Impairments Pain,Strength,Balance, Coordination,Functional Cognition,Functional Mobility, Self-Feeding,Grooming,Dressing ,Toileting,Bathing,Toilet Transfers,Shower Transfers, Activity Tolerance Progress Towards Goals Slow Progress due to Pain,Slow Progress due to Medical Issues,Slow Progress due to Activity Tolerance Assessment Summary Pt participated in mobility during todays session. Pt initially needing min x2 but progresses to needed max x 2 at end of session d/t fatigue. Pt with good motivation and participation and able to follow commands for slowing steps, and better placement of feet. Goals Self-Feeding Goal Standby Assistance Grooming Goal Minimal Assistance Dressing Goal Moderate Assistance Toileting Goal Moderate Assistance Bathing Goal Moderate Assistance Toilet Transfer Goal Minimal Assistance Shower Transfer Goal Minimal Assistance Days to Meet Goals 41 Frequency of Treatment Frequency Of Treatment Once a Day Treatment Plan OT Treatment Plan ADL Training,Functional Cognition Training,Functional Mobility,Neuromuscular Re- education,Therapeutic Exercises,Patient/Family Education,Discharge Planning Other Treatment Recommendations and Next sitting balance with ADLs, Treatment Focus shower Discharge Recommendations OT Discharge Recommendations SNF Rehab,[facility]AC Transportation Needs at Discharge Wheelchair/Cabulance
--- NOTE | 2022-05-30 11:13 | PT.IPTN ---
Current Diagnoses Depression, unspecified (05/01/22) Cerebral infarction, unspecified (05/01/22) Spinal stenosis, cervical region (05/01/22) Physical Therapy Treatment Note M2 PT-IP Current Condition Start: 05/07/22 09:18 Freq: NEEDED Status: Active Protocol: Document 05/18/22 13:22 SP (Rec: 05/18/22 16:05 SP [id number]) Physical Therapy Current Condition Current Condition Evaluation Date 05/07/22 Treatment Diagnosis metabolic encephalopathy; polysubstance withdrawal; impaired mobility Onset Date 04/30/22 M3 PT-IP Subjective Start: 05/07/22 09:18 Freq: NEEDED Status: Active Protocol: Document 05/30/22 10:45 KS (Rec: 05/30/22 12:15 KS [id number]) Subjective Physical Therapy Visit Type Type Treatment Note Visit Start Time 10:45 Visit Stop Time 11:13 Total Visit Minutes 28 Notes co-treat w/ OT. Number of SENIOR SALES ASSOCIATE Visits 6 Physical Therapy Visit Comments Patient Comments Pt agreeable to working w/ therapy. M4 PT-IP Mobility and Gait Start: 05/07/22 09:18 Freq: NEEDED Status: Active Protocol: Document 05/30/22 10:45 KS (Rec: 05/30/22 12:15 KS [id number]) PT-Transfer Assessment Sit to and From Stand Sit to and from Stand Minimal Assistance,Moderate Assistance,2 Person Assistance ,Use of Upper Extremities Equipment Transfer Assistive Device Gait Belt,Front Wheeled Walker Orthotic/Prosthetic Devices or Brace: No Transfers Transfer Destination Chair,Wheelchair Transfer Technique Pt ambulated w/ FWW Transfer Ability Level of Assist Moderate Assistance,Maximum Assistance,2 Person Assistance ,Use of Upper Extremities Comments Mobility Comments Pt in chair upon arrival from therapy and agreeable to ambulate. Min A x2 for sit<> stand w/ FWW , pt then ambulated ~60 ft w/ FWW w/ varying assists from Min x2 to Max x2 before taking seated rest break. Pt completed additional bout of 60 ft ambulation followed by two more of ~30 ft w/ rest breaks between each. He requires 2PA at all times and level of assist varied throughout ambulation but primarily Mod A x2. He needs very frequent cues for upright posture, step sequence, equal step length, and FWW management. Scissoring gait still present, but less compared to yesterday. Pt returned to chair needing Max Ax2 w/ FWW. Gait Assessment Gait Gait Assistance Required: Minimum Assistance,Moderate Assistance,Maximum Assistance, 2 Person Assist Distance (Feet) 60 Assistive Devices Assistive Device Gait Belt,Front Wheeled Walker Orthotic/Prosthetic Devices or Brace: No Gait Deviations General Gait Pattern Ataxic,Decreased Stride Length ,Decreased Feet Clearance, Flexed Trunk,Lateral Trunk Lean,Narrow Based Gait,Step-to Gait Factors Limiting Gait Function Factors Limiting Gait Function Decreased Activity Tolerance, Decreased Strength,Difficulty Following Directions, Incoordination,Pain,Poor Balance,Poor Safety Awareness Comments Gait Comments Please see mobility section for details - pt needing at times Min A x2, but primarily Mod A x2 to Max Ax2 for ambulation and always 2 PA w/ w/c follow. PT-Balance Assessment Sitting Balance and Reactions Static Sitting Balance Ability Fair Dynamic Sitting Balance Ability Fair Standing Balance and Reactions Static Standing Balance Ability Poor Dynamic Standing Balance Ability Poor Device Used FWW M5 PT-IP Objective Assessments Start: 05/07/22 09:18 Freq: NEEDED Status: Active Protocol: Document 05/07/22 11:05 AW (Rec: 05/07/22 13:30 AW [id number]) Orientation Orientation/Cognition Level of Alertness Lethargic Orientation Name,Month,Place Safety Awareness Decreased Safety Awareness Gross Range of Motion Lower Extremity ROM Assessment Within Functional Limits Strength Lower Extremity Strength Assessment Bilaterally Impaired Comments Strength Comments R grossly 3-/5. L grossly 3+/5 Coordination Assessment Gross Coordination Gross Coordination Impaired Assessment Finger to Nose Test Activity Impossible Foot Tapping Test Minimal Impairment Coordination Comments Pt limited by BUE weakness with UE coordination testing. Sensation Assessment Sensation Gross Sensation WNL Muscle Tone Muscle Tone WNL Yes M6 PT-IP Treatment Start: 05/07/22 09:18 Freq: NEEDED Status: Active Protocol: Document 05/30/22 10:45 KS (Rec: 05/30/22 12:15 KS [id number]) Physical Therapy Treatment Education Education Provided Safety M7 PT-IP Assessment and Plan Start: 05/07/22 09:18 Freq: NEEDED Status: Active Protocol: Document 05/30/22 10:45 KS (Rec: 05/30/22 12:15 KS [id number]) PT Summary Assessment and Plan Potential Rehabilitation Potential Fair Status of Condition at Evaluation Evolving Summary Impairments Strength,Balance,Coordination, Cognition,Bed Mobility, Transfers,Gait Progress Towards Goals Slow Progress due to Medical Issues,Slow Progress due to Activity Tolerance Assessment Summary Pt continues to show slow progress, but is ighly motivated. Improved ambulation distance today, but still requires 2 PA and w/c follow at all times. Needs seated rest breaks between bouts of ambulation and frequent cues during ambulation. Pt would benefit from continued skilled therapy, and will require SNF and jail care placement to improve functional mobility and strength. Goals Bed Mobility Goal Contact Guard Assistance Transfer Goal Standby Assistance,Front Wheeled Walker Gait Goal Standby Assistance,Front Wheel Walker Gait Distance 150 Other Goals up/down 4 steps with rails SBA - improve transfers and gait to SBA with 4WW Days to Meet Goals 10 Frequency of Treatment Frequency Of Treatment Once a Day Treatment Plan Physical Therapy Treatment Plan Bed Mobility Training,Transfer Training,Gait Training, Therapeutic Exercise,Balance Retraining,Discharge Planning, Hot or Cold Pack,Neuromuscular Re-ed,Coordination Retraining Other Recommendations and Next Treatment bed mob, sitting balance Focus activities, standing, transfers, gait using FWW chair follow. Consider using mirror for midline orientation . Precautions Other Precautions seizure precautions; falls risk Recommendations To Nursing Amount of Assist Needed 2 Person Assist Discharge Recommendations PT Discharge Recommendations SNF Rehab,LTAC Equipment Needed for Home Before FWW Discharge Transportation Needs at Discharge Wheelchair/Cabulance,Stretcher /Ambulance
--- NOTE | 2022-05-30 13:28 | CM.DPC ---
Addendum entered by Claudia Segal R.N. 05/30/22 14:50: Sent an email to Maria Fernanda [facility] case mgr and asked her if she had received the consents, and if her hydrochloric area supervisor has checked off on her assessment. She did email back and indicated that she has received the consents, she has our email, and will respond as soon as it is reviewed. In the meantime, care management will continue to search for beds for patient. Original Note: DCP Cont: Called [facility] and asked Nazia if she can give information on hydrochloric area supervisor of the current [facility] case mgr, for her hydrochloric area supervisor is the one that is having to review the current assessment. Nazia at [facility] gave a phone number of: [phone]. This is the main number of the [facility] area, but no name given. It is also noted that consents were all faxed to Maria Fernanda Danielle yesterday. May send her another email to ensure that she received all of her documents, and may attempt to follow up with hydrochloric area supervisor to see if assessment can be completed and sent BEULAH. P: GISSELLE is working on placement, and will need to follow up with getting assessment BEULAH, to determine daily rate. Claudia Segal RN/Varnishing Unit Operator
--- NOTE | 2022-05-30 13:37 | ST.IPDYTX ---
Visit Care Team Role Provider Type Amarilis Alcantara MD Other Providers Physician Specialty: Orthopedics Orthopedic Surgery Address: [address] [place], [address] Email: [email or web address] Julito Richmond MD Other Providers Physician Specialty: Psychiatry Address: [facility], [address], [place], [address] Email: [email or web address] Kenney Joshi MD Family Provider Non-Staff Primary Care Provider Specialty: Family Practice Address: [address], [address] [place] [address], [id number] Email: Richard Hannon DO Emergency Provider Physician Referring Provider Specialty: Emergency Medicine Address: [address] [place] [address], [address] Email: [email or web address] JONATHAN Sampson Admit Provider Physician Attending Provider Specialty: Internal Medicine Address: [address] [place] [address], [address] Email: [email or web address] DRILLER MACHINE Dysphagia Treatment DRILLER MACHINE Clinical Instructor Line Start: 05/07/22 11:09 Freq: Status: Active Protocol: Document 05/17/22 11:23 MG (Rec: 05/17/22 11:24 MG [id number]) Clinical Instructor Signature Clinical Instructor Clinical Instructor Yes: Yarelis Foster MA, [facility]-DRILLER MACHINE DRILLER MACHINE Dysphagia Treatment Start: 05/07/22 09:45 Freq: Status: Active Protocol: Document 05/30/22 13:32 ZS (Rec: 05/30/22 13:37 ZS [id number]) Dysphagia Treatment Session Time Visit Start Time 12:30 Visit Stop Time 13:00 Total Visit Minutes 30 Setting Assessment Location Acute Care Visit Type Note Type Treatment Note Next Note Type Next Note Type Treatment Note Patient Information Identification Type Name,ID Wristband Subjective Observations Pt was seated upright in chair watching TV with finished lunch in front of him. Pt was agreeable to working with DRILLER MACHINE on this day. Per DRILLER MACHINE observation, his voice appears stronger and louder than previous session and he was very motivated to get better . Treatment Administration Type Straw,Self-Feeding Oral Strategies Upright at 90 degrees, Controlled Bite/Sip Size, Alternate Liquids/Solids Pharyngeal Strategies Sitting Upright (90 deg), Double Swallow,Small Bites and Sips Treatment Activities Pt reported no difficulty with chewing/swallowing lunch and had finished 100% of food on his plate. He did not eat the macaroni and cheese, reporting it was cold, but was about correction finished with his smoothie and stated he will eat the pudding. He reported coughing on some tea earlier this week, but stated this was because he was not expecting it to be as hot as it was and he was drinking it very quickly through a straw. Provided pt education regarding progress and plan of care with continued improvement. Pt is at baseline at this time. Will continue to monitor to ensure pt remains at baseline, but likely discharge from speech therapy if pt continues to remain at this level. Pt reported pain in his neck and suggested medical care team look at his CT scan again to see if pain may be related to limited mobility in extremities. Assessment Patient Response to Treatment Good Rehab Potential Good Assessment of Improvement Pt appeared to have no concerns when tolerated solids /liquids trialed at this time. Diet upgrade appears to be effective at this time and continue to recommend current diet. Diet Recommendations Recommendations Continue Current Diet Liquids Order Thin Diet Order Dysphagia Advanced Medication Recommendations As Tolerated,Whole in Carrier Additional Dietary Needs Single Sips,Controlled Sips,1: 1 Supervision,Encourage to Self-Feed,Reminders to Use Strategies Aspiration Precautions Recommended Precautions Upright at 90 Degrees,Frequent Rest Periods,Small Bites/Sips ,Chin Tuck,Check for Pocketing Treatment Plan Placement Recommendation after Discharge [facility],Motivational Speaker Care Facility Appropriate for Continued Therapy Yes Therapy Recommendations Continue to see 1x daily over course of hospital stay to monitor progress and further assess/treat deficits as needed. Dysphagia Goals Pt to participate in ongoing evaluation of swallow safety with diet advancement as appropriate. Pt will safely tolerate least restrictive diet to meet his nutrition and hydration needs
[2022-05-30] MEDS: LORazepam 1 MG TABLET 0.5 MG PO ×2 (14:01→18:12)
--- NOTE | 2022-05-30 14:16 | PM.PN.1 ---
Subjective Subjective Date Patient Seen: 05/30/22 Interval history: Still having significant pain in his arm which he described as hooks stuck in his fingers with associated numbness. Exam Vital Signs (past 8 hours): - 05/30/22 07:00 05/30/22 12:00 Temperature 97.1 F L Pulse Rate 94 H Respiratory Rate 17 Blood Pressure 150/97 H Pulse Oximetry 98 Oxygen Delivery Method Room Air Oxygen Flow Rate 0 Oxygen Delivery Method Room Air Oxygen Flow Rate 0 Narrative Exam Narrative: GEN: Middle-aged male, very thin, temporal wasting, Alert and oriented x 3, NAD HEENT:NC, Face symmetric CHEST: Respiratory excursions symmetric, CTAB CV: RRR, no M/R/G ABD: Soft, NT/ND, BT present in all 4 quadrants, no organomegaly or masses EXTR: warm, well perfused, no C/C/E, right upper extremity remains weak, poor mobility SKIN: warm and dry, no rash NEURO: Alert and oriented x 3. Objective Labs Result Diagrams: 05/23/22 21:21 05/26/22 11:03 [facility] Medical History Asthma Chronic back pain greater than 3 months duration Closed intertrochanteric fracture of left femur Depression Drug abuse, IV History of CVA (cerebrovascular accident) Surgical History History of hernia repair Family History Father Unknown family medical history Mother No problems noted. Grandmother Myocardial infarction Grandfather No problems noted. Social History household members: friend(s) Smoking Status: Current some day smoker alcohol intake: current Assessment & Plan Assessment & Plan narrative: 1.? Weakness Patient appears to be chronically debilitated.? No evidence of new stroke on 2 different brain MRIs.? C-spine MRI did reveal some chronic pathology but no acute cord compression.? Orthopedic surgery consulted and recommended outpatient follow-up with Neurosurgery.? Acetylcholine antibodies and?DIXIE negative.? Remains on cymbalta since 05/18. Gabapentin initiated 05/21. Continues to have pain which the norco helps but wears off after 3 hours. Change norco to q3h instead of q4h. -also started on gabapentin, will increase further today to 400 mg TID 2. Altered mental status / metabolic encephalopathy Patient appears to be at baseline.? No evidence for withdrawal presently.? He is working with therapies on a daily basis and is slowly improving. 3. Hypertension Presently normotensive, not on therapy. 4. Hyperlipidemia Continue atorvastatin 5. Polysubstance dependence Although patient was intoxicated on admission, he has been?hospitalized for over 25 days.? There was evident concern early on that people were bringing controlled substances into the hospital.? However,? he has had restricted visitation since that time. 6. Prior stroke with residual right-sided weakness Patient remains on atorvastatin 40 mg, aspirin 81 mg. 7. Microcytic anemia MCV is up to 71.? Hemoglobin is 11.? 8. Hepatitis C Hep C ab positive. Hep C RNA >1 million. Will need outpatient f/u. Resolved issues: Acute respiratory failure d/t pneumonia Oral Thrush ? Code status Full ?prophylaxis On Lovenox ?Disposition Pending placement.? Currently 1 person assist per PT. Time Spent With Patient Critical Care time: I spent a total of [] minutes of critical care time on this patient's care today; this time is exclusive of procedural time. Quality VTE Deep Vein Thrombosis/Pulmonary Embolism Present on Admission: No
--- NOTE | 2022-05-30 14:36 | CM.DPNOTE ---
Faxed updated clinicals to [facility] at [phone]. Kristin Schwarz CM Assist.
[2022-05-30] MEDS: GABAPENTIN 400 MG CAPSULE PO ×2 (15:36→20:36)
--- NOTE | 2022-05-30 18:15 | PC.NURSE ---
Ptis AxOx4, needs 2 person assistance with FWW. VSS, pt c/o pain and recieved PO [place] x2 with good effect. pt also c/o anxiety and requested PRN Ativan x2 with good effect. Pt worked with PT and walked in the hallway. Pt is eating well and voiding well. BG-82 before breakfast and pt ate well. d/c-d his AC/HS BG check. Pt had L BM x2. Bed bath given. Pt sat on the chair for a long time. Pt was talkative and happier today. Continue monitor .
[2022-05-30] MEDS: ATORVASTATIN 20 MG TABLET 40 MG PO (20:36)
[2022-05-30] MEDS: METOCLOPRAMIDE 10 MG/2 ML INJ IV (23:24)
[2022-05-30] MEDS: SODIUM CHLORIDE 0.9% FLUSH 10 ML IV (23:25)
[2022-05-30] MEDS: ALBUTEROL 2.5 MG/3 ML NEB (ADULT) INH (23:31)
[2022-05-31] MEDS: HYDROCODONE/ACET 5/325 TABLET 1 TAB PO ×4 (04:39→20:51)
[2022-05-31 04:53] VITALS: BP 128/79; PULSE 79; RESP 18; TEMP 36.6; O2SAT 98
[2022-05-31] MEDS: ASPIRIN EC 81 MG TABLET PO (09:40)
[2022-05-31] MEDS: GABAPENTIN 400 MG CAPSULE PO ×3 (09:40→20:52)
[2022-05-31] MEDS: SENNOSIDES 8.6 MG TABLET PO ×2 (09:41→20:53)
[2022-05-31] MEDS: ENOXAPARIN 40 MG/0.4 ML SYRINGE SUBCUT (09:41)
[2022-05-31] MEDS: MULTIVITAMIN 1 TABLET 1 TAB PO (09:41)
[2022-05-31] MEDS: DOCUSATE 100 MG CAPSULE PO ×2 (09:41→20:52)
[2022-05-31] MEDS: PANTOPRAZOLE DR 40 MG TABLET PO ×2 (09:41→20:52)
[2022-05-31] MEDS: DULOXETINE 30 MG CAPSULE PO (09:41)
[2022-05-31] MEDS: FOLIC ACID 1 MG TABLET PO (09:41)
[2022-05-31] MEDS: NICOTINE 7 MG PATCH TOP (09:42)
[2022-05-31] MEDS: SODIUM CHLORIDE 0.9% FLUSH 10 ML IV ×2 (09:43→20:53)
--- NOTE | 2022-05-31 11:53 | CM.DPC ---
DCP spoke with [place] today regarding pt assessment. Vivian had follow up questions that needed to be answered from DCP for the assessment per her supervisor pullet farm. DCP answered questions to the best of her ability. Vivian has to re-send assessment to supervisor pullet farm with the updated answers. Vivian provided DCP with tentative daily rate of $121.61. Vivian to follow up with DCP today once supervisor pullet farm reviews assessment. Roya More RN/DCP
[2022-05-31 12:00] VITALS: BP 124/72; PULSE 85; RESP 20; TEMP 36.4; O2SAT 96
--- NOTE | 2022-05-31 12:20 | OT.IP.TRT ---
Current Diagnoses Depression, unspecified (05/01/22) Cerebral infarction, unspecified (05/01/22) Spinal stenosis, cervical region (05/01/22) Occupational Therapy Treatment Note M2 OT-IP Current Condition Start: 05/07/22 12:13 Freq: Status: Active Protocol: Document 05/07/22 12:13 CGR (Rec: 05/07/22 12:37 CGR [id number]) Occupational Therapy Current Condition Current Condition Evaluation Date 05/07/22 Treatment Diagnosis generalized weakness, hx IV drug use, R CVA 2016 Diagnosis Onset Date 05/01/22 M3 OT- IP Subjective and Pain Start: 05/07/22 12:13 Freq: Status: Active Protocol: Document 05/31/22 12:28 CGR (Rec: 05/31/22 12:44 CGR [id number]) OT- Subjective Occupational Therapy Visit Type Type Progress Note Visit Start Time 11:50 Visit Stop Time 12:20 Total Visit Minutes 30 M4 OT- IP ADL's Start: 05/07/22 12:13 Freq: Status: Active Protocol: Document 05/31/22 12:28 CGR (Rec: 05/31/22 12:44 CGR [id number]) OT ANM-Agcv-Gabeuuo Comments OT Self-Feeding Comments pt initially wanting to be fed but then states that he can do himself. OT ADL-Grooming General Evaluation Grooming Ability Total Assistance Areas Needing Assistance Combing/Brushing Hair Comments OT Grooming Comments put hair up OT ADL-Oral Care Comments Oral Care Comments not performed OT ADL-Dressing General Eval Lower Body Dressing Ability Total Assistance Areas Needing Assistance Socks OT ADL-Toileting Comments OT Toileting Comments not performed OT ADL-Bathing Comments OT Bathing Comments not performed, discussed with nursing and nursing planning to attempt a shower today. M5 OT- IP IADL's Start: 05/07/22 12:13 Freq: Status: Active Protocol: Document 05/07/22 12:13 CGR (Rec: 05/07/22 12:37 CGR [id number]) OT-Instrumental Activities of Daily Living Deficits IADL Deficits Identified Deficits Home Safety Awareness Awareness of Need for Assistance at Home Decreased Awareness Ability to Problem Solve Emergency Unable to Problem Solve Situations Medication Management Medication Management Comments Concerns about pt's ability to perform consistently Money Management Money Management Comments Concerns about pt's ability to perform consistently Meal Preparation Meal Preparation Comments Concerns about pt's ability to perform consistently Mold Changer Mold Changer Comments Concerns about pt's ability to perform consistently M6 OT- IP Functional Cognition Start: 05/07/22 12:13 Freq: Status: Active Protocol: Document 05/31/22 12:28 CGR (Rec: 05/31/22 12:44 CGR [id number]) Cognitive Factors Limiting Selfcare Function Cognitive Ability Level of Alertness Alert Patient Orientation Name,Age,Birthday,Month,Date, Year,Day of Week,Place, Situation Attention Span Ability Capable of Focused Attention, Capable of Sustained Attention Cognitive Comments Cognitive Assessment Comments Pt is impulsive with movement at time. OT- Vision and Hearing OT- Hearing Assessment OT- Hearing Assessment WFL OT- Vision Assessment Occular Pursuits WFL Visual Convergence Impaired Vision Assessment Comments Pt's right eye diverts to the right with convergence. M7 OT- IP Mobility and Balance Start: 05/07/22 12:13 Freq: Status: Active Protocol: Document 05/31/22 12:28 CGR (Rec: 05/31/22 12:44 CGR [id number]) OT- Bed Mobility Assessment Supine to Sit Supine to Sit Assist Standby Assistance Scooting Scooting to Edge of Bed Standby Assistance OT-Transfer Assessment Sit to and From Stand Sit to and from Stand Minimal Assistance,2 Person Assistance Transfers Transfer Ability Minimal Assistance Technique Transfer Destination Bed,Chair Transfer Technique Stand Step Pivot Devices Transfer Assistive Devices Gait Belt,Front Wheeled Walker OT- Gait Assessment Gait Gait Assistance Required: Minimum Assistance,Moderate Assistance,Maximum Assistance, 2 Person Assist Assistive Devices Assistive Device Gait Belt,Front Wheeled Walker Comments Gait Ability Comments See p.t. note for distance. Pt ambulated out in [place] with fewer rest breaks and longer distance today. Pt needs VC to slow down and minimize step length. Pt initially min x 2 but quickly requires heavy mod x2 and max x 2 mainly for turns. OT- Balance Assessment Sitting Balance and Reactions Static Sitting Balance Ability Good Dynamic Sitting Balance Ability Fair M8 OT- IP Objective Assessments Start: 05/07/22 12:13 Freq: Status: Active Protocol: Document 05/07/22 12:13 CGR (Rec: 05/07/22 12:37 CGR [id number]) OT Gross Range of Motion Upper Extremity Range of Motion ROM Impairments AAROM WFL OT Strength Upper Extremity Strength Assessment Bilaterally Impaired Comments Strength Comments R weaker than L R grossly 2/5 L grossly 2+ to 3-/5 OT- Coordination Assessment Upper Extremity Finger to Nose Test Bilateral UE Impaired Finger Tapping Test Bilateral UE Impaired OT-Muscle Tone Assessment Muscle Tone WNL Yes OT Sensation Assessment Edema Edema Absent M9 OT- IP Assessment and Plan Start: 05/07/22 12:13 Freq: Status: Active Protocol: Document 05/31/22 12:28 CGR (Rec: 05/31/22 12:44 CGR [id number]) OT Summary Assessment and Plan Potential Rehabilitation Potential Fair Analytic Complexity at Evaluation High Summary OT Impairments Pain,Strength,Balance, Coordination,Functional Cognition,Functional Mobility, Self-Feeding,Grooming,Dressing ,Toileting,Bathing,Toilet Transfers,Shower Transfers, Activity Tolerance Progress Towards Goals Slow Progress due to Pain,Slow Progress due to Medical Issues,Slow Progress due to Activity Tolerance Assessment Summary Pt participated in mobility during todays session. Pt initially needing min x2 but progresses to needed heavy mod x2 for most of the rest of his mobility. Pt requires max x 2 at times especially with turns. Pt with good motivation and participation and able to follow commands for slowing steps, and better placement of feet. Goals Self-Feeding Goal Standby Assistance Grooming Goal Minimal Assistance Dressing Goal Moderate Assistance Toileting Goal Moderate Assistance Bathing Goal Moderate Assistance Toilet Transfer Goal Minimal Assistance Shower Transfer Goal Minimal Assistance Days to Meet Goals 41 Frequency of Treatment Frequency Of Treatment Once a Day Treatment Plan OT Treatment Plan ADL Training,Functional Cognition Training,Functional Mobility,Neuromuscular Re- education,Therapeutic Exercises,Patient/Family Education,Discharge Planning Other Treatment Recommendations and Next sitting balance with ADLs, Treatment Focus shower Discharge Recommendations OT Discharge Recommendations SNF Rehab,LTAC Transportation Needs at Discharge Wheelchair/Cabulance
--- NOTE | 2022-05-31 12:20 | PT.IPTN ---
Current Diagnoses Depression, unspecified (05/01/22) Cerebral infarction, unspecified (05/01/22) Spinal stenosis, cervical region (05/01/22) Physical Therapy Treatment Note M2 PT-IP Current Condition Start: 05/07/22 09:18 Freq: NEEDED Status: Active Protocol: Document 05/18/22 13:22 SP (Rec: 05/18/22 16:05 SP [id number]) Physical Therapy Current Condition Current Condition Evaluation Date 05/07/22 Treatment Diagnosis metabolic encephalopathy; polysubstance withdrawal; impaired mobility Onset Date 04/30/22 M3 PT-IP Subjective Start: 05/07/22 09:18 Freq: NEEDED Status: Active Protocol: Document 05/31/22 11:44 KS (Rec: 05/31/22 13:00 KS [id number]) Subjective Physical Therapy Visit Type Type Treatment Note Visit Start Time 11:44 Visit Stop Time 12:20 Total Visit Minutes 36 Notes co-treat w/ OT. Number of SERVICE CAR OPERATOR Visits 7 Physical Therapy Visit Comments Patient Comments Pt agreeable to working w/ therapy. M4 PT-IP Mobility and Gait Start: 05/07/22 09:18 Freq: NEEDED Status: Active Protocol: Document 05/31/22 11:44 KS (Rec: 05/31/22 13:00 KS [id number]) PT-Bed Mobility Assessment Supine to Sit Supine to Sit Standby Assistance,1 Person Assistance,Bedrails Scooting Scooting to Edge of Bed Minimal Assistance PT-Transfer Assessment Sit to and From Stand Sit to and from Stand Minimal Assistance,Moderate Assistance,2 Person Assistance ,Use of Upper Extremities Equipment Transfer Assistive Device Gait Belt,Front Wheeled Walker Orthotic/Prosthetic Devices or Brace: No Transfers Transfer Destination Chair,Wheelchair Transfer Technique Pt ambulated w/ FWW Transfer Ability Level of Assist Moderate Assistance,Maximum Assistance,2 Person Assistance ,Use of Upper Extremities Comments Mobility Comments Pt in bed upon arrival and agreeable to ambulate. Pt impulsive and needs safety cues throughout treatment. SBA for sup<>Sit, Min A for scooting. Pt sit<>stand Min A x2 on first attempt w/ FWW. He ambulated ~50 ft x4 w/ FWW and seated reat breaks between each bout. Pt still primarily needing Mod A x2 w/ ambulation, but occasionally Min A x2 and when turning or transferring Max A x2. He requires close w/c follow and max cues for step sequencing, upright posture, and FWW mgmt and assist level varies sporadically. Gait quality continues to improve slowly. Pt returned to chair w/ Max A x2 and left in chair w/ all needs in reach. Gait Assessment Gait Gait Assistance Required: Minimum Assistance,Moderate Assistance,Maximum Assistance, 2 Person Assist Distance (Feet) 50 Assistive Devices Assistive Device Gait Belt,Front Wheeled Walker Orthotic/Prosthetic Devices or Brace: No Gait Deviations General Gait Pattern Ataxic,Decreased Stride Length ,Decreased Feet Clearance, Flexed Trunk,Lateral Trunk Lean,Narrow Based Gait,Step-to Gait Factors Limiting Gait Function Factors Limiting Gait Function Decreased Activity Tolerance, Decreased Strength,Difficulty Following Directions, Incoordination,Pain,Poor Balance,Poor Safety Awareness Comments Gait Comments Please see mobility for details. 50 ft x4 w/ FWW 2 PA and w/c follow at all times. PT-Balance Assessment Sitting Balance and Reactions Static Sitting Balance Ability Fair Dynamic Sitting Balance Ability Fair Standing Balance and Reactions Static Standing Balance Ability Poor Dynamic Standing Balance Ability Poor Device Used FWW M5 PT-IP Objective Assessments Start: 05/07/22 09:18 Freq: NEEDED Status: Active Protocol: Document 05/07/22 11:05 AW (Rec: 05/07/22 13:30 AW [id number]) Orientation Orientation/Cognition Level of Alertness Lethargic Orientation Name,Month,Place Safety Awareness Decreased Safety Awareness Gross Range of Motion Lower Extremity ROM Assessment Within Functional Limits Strength Lower Extremity Strength Assessment Bilaterally Impaired Comments Strength Comments R grossly 3-/5. L grossly 3+/5 Coordination Assessment Gross Coordination Gross Coordination Impaired Assessment Finger to Nose Test Activity Impossible Foot Tapping Test Minimal Impairment Coordination Comments Pt limited by BUE weakness with UE coordination testing. Sensation Assessment Sensation Gross Sensation WNL Muscle Tone Muscle Tone WNL Yes M6 PT-IP Treatment Start: 05/07/22 09:18 Freq: NEEDED Status: Active Protocol: Document 05/31/22 11:44 KS (Rec: 05/31/22 13:00 KS [id number]) Physical Therapy Treatment Education Education Provided Safety M7 PT-IP Assessment and Plan Start: 05/07/22 09:18 Freq: NEEDED Status: Active Protocol: Document 05/31/22 11:44 KS (Rec: 05/31/22 13:00 KS [id number]) PT Summary Assessment and Plan Potential Rehabilitation Potential Fair Status of Condition at Evaluation Evolving Summary Impairments Strength,Balance,Coordination, Cognition,Bed Mobility, Transfers,Gait Progress Towards Goals Slow Progress due to Medical Issues,Slow Progress due to Activity Tolerance Assessment Summary Pt continues to progress slowly. Increased ambulation distance and improved quality of gait marginally today, but still needing 2 PA, w/c follow , and max cues, including safety cues at all times. Pt would benefit from continued skilled therapy, and will require SNF and long chain beamer care placement to improve functional mobility and strength. Goals Bed Mobility Goal Contact Guard Assistance Transfer Goal Standby Assistance,Front Wheeled Walker Gait Goal Standby Assistance,Front Wheel Walker Gait Distance 150 Other Goals up/down 4 steps with rails SBA - improve transfers and gait to SBA with 4WW Days to Meet Goals 10 Frequency of Treatment Frequency Of Treatment Once a Day Treatment Plan Physical Therapy Treatment Plan Bed Mobility Training,Transfer Training,Gait Training, Therapeutic Exercise,Balance Retraining,Discharge Planning, Hot or Cold Pack,Neuromuscular Re-ed,Coordination Retraining Other Recommendations and Next Treatment bed mob, sitting balance Focus activities, standing, transfers, gait using FWW chair follow. Consider using mirror for midline orientation . Precautions Other Precautions seizure precautions; falls risk Recommendations To Nursing Amount of Assist Needed 2 Person Assist Discharge Recommendations PT Discharge Recommendations SNF Rehab,LTAC Equipment Needed for Home Before FWW Discharge Transportation Needs at Discharge Wheelchair/Cabulance,Stretcher /Ambulance
--- NOTE | 2022-05-31 12:55 | ST.IPDYTX ---
Visit Care Team Role Provider Type Amarilis Alcantara MD Other Providers Physician Specialty: Orthopedics Orthopedic Surgery Address: [address] [place], [address] Email: [email or web address] Julito Richmond MD Other Providers Physician Specialty: Psychiatry Address: [facility], [address], [place], [address] Email: [email or web address] Kenney Joshi MD Family Provider Non-Staff Primary Care Provider Specialty: Family Practice Address: [address] [facility], [address] [place] [address], [address] Email: Richard Hannon DO Emergency Provider Physician Referring Provider Specialty: Emergency Medicine Address: [address] [place] [address], [address] Email: [email or web address] JONATHAN Sampson Admit Provider Physician Attending Provider Specialty: Internal Medicine Address: [address] [place] [address], [address] Email: [email or web address] ORDER ADMINISTRATOR Dysphagia Treatment ORDER ADMINISTRATOR Clinical Instructor Line Start: 05/07/22 11:09 Freq: Status: Active Protocol: Document 05/17/22 11:23 MG (Rec: 05/17/22 11:24 MG [id number]) Clinical Instructor Signature Clinical Instructor Clinical Instructor Yes: Yarelis Foster MA, [facility]-ORDER ADMINISTRATOR ORDER ADMINISTRATOR Dysphagia Treatment Start: 05/07/22 09:45 Freq: Status: Active Protocol: Document 05/31/22 12:51 ZS (Rec: 05/31/22 12:55 ZS [id number]) Dysphagia Treatment Session Time Visit Start Time 10:30 Visit Stop Time 10:45 Total Visit Minutes 15 Setting Assessment Location Acute Care Visit Type Note Type Treatment Note Next Note Type Next Note Type Treatment Note Patient Information Identification Type Name,ID Wristband Subjective Observations Pt was lying in bed when ORDER ADMINISTRATOR arrived. Pt was agreeable to working with ORDER ADMINISTRATOR on this day. Per ORDER ADMINISTRATOR observation, his voice appears softer today, though maintained energy and animation from yesterday. Treatment Administration Type Straw,Self-Feeding Oral Strategies Upright at 90 degrees, Controlled Bite/Sip Size, Alternate Liquids/Solids Pharyngeal Strategies Sitting Upright (90 deg), Double Swallow,Small Bites and Sips Treatment Activities Pt reported no difficulty with chewing/swallowing breakfast and reported he ate too much. Pt added he usually eats 2 meals a week and is not used to eating 3 meals a day. He reported shoulder pain today and stated it might be broken or dislocated. Pt is at baseline at this time. Will check in tomorrow to ensure pt remains at baseline, but likely discharge from speech therapy if pt continues to remain at this level. Assessment Patient Response to Treatment Good Rehab Potential Good Assessment of Improvement Pt appeared to have no concerns when tolerated solids /liquids trialed at this time. Diet upgrade appears to be effective at this time and continue to recommend current diet. Diet Recommendations Recommendations Continue Current Diet Liquids Order Thin Diet Order Dysphagia Advanced Medication Recommendations As Tolerated,Whole in Carrier Additional Dietary Needs Single Sips,Controlled Sips,1: 1 Supervision,Encourage to Self-Feed,Reminders to Use Strategies Aspiration Precautions Recommended Precautions Upright at 90 Degrees,Frequent Rest Periods,Small Bites/Sips ,Chin Tuck,Check for Pocketing Treatment Plan Placement Recommendation after Discharge Residential Facility,[facility] Appropriate for Continued Therapy Yes Therapy Recommendations Continue to see 1x daily over course of hospital stay to monitor progress and further assess/treat deficits as needed. Dysphagia Goals Pt to participate in ongoing evaluation of swallow safety with diet advancement as appropriate. Pt will safely tolerate least restrictive diet to meet his nutrition and hydration needs
[2022-05-31] MEDS: METOCLOPRAMIDE 10 MG/2 ML INJ IV (13:55)
--- NOTE | 2022-05-31 14:54 | PC.NURSE ---
Day shift note: Out of bed to chair for meals, ambulated in hallway with OT/MUSIC EXECUTIVE FWW, and full shower/hair wash. Sleeping in between care, and very motivated and cooperative while awake. Call light within reach, bed/chair alarm active.
--- NOTE | 2022-05-31 15:31 | P.PN_ITS ---
Subjective Subjective Date Patient Seen: 05/31/22 Interval history: Still having significant pain in his arm which he described as hooks stuck in his fingers with associated numbness. Exam Vital Signs (past 8 hours): - 05/31/22 08:00 05/31/22 12:00 Temperature 97.5 F L Pulse Rate 85 Respiratory Rate 20 Blood Pressure 124/72 Pulse Oximetry 96 Oxygen Delivery Method Room Air Oxygen Flow Rate 0 Oxygen Delivery Method Room Air Oxygen Flow Rate 0 Narrative Exam Narrative: GEN: Middle-aged male, very thin, temporal wasting, Alert and oriented x 3, NAD HEENT:NC, Face symmetric CHEST: Respiratory excursions symmetric, CTAB CV: RRR, no M/R/G ABD: Soft, NT/ND, BT present in all 4 quadrants, no organomegaly or masses EXTR: warm, well perfused, no C/C/E, right upper extremity remains weak, poor mobility SKIN: warm and dry, no rash NEURO: Alert and oriented x 3. Objective Labs Result Diagrams: 05/23/22 21:21 05/26/22 11:03 [facility] Medical History Asthma Chronic back pain greater than 3 months duration Closed intertrochanteric fracture of left femur Depression Drug abuse, IV History of CVA (cerebrovascular accident) Surgical History History of hernia repair Family History Father Unknown family medical history Mother No problems noted. Grandmother Myocardial infarction Grandfather No problems noted. Social History household members: friend(s) Smoking Status: Current some day smoker alcohol intake: current Assessment & Plan Assessment & Plan narrative: 1.? Weakness Patient appears to be chronically debilitated.? No evidence of new stroke on 2 different brain MRIs.? C-spine MRI did reveal some chronic pathology but no acute cord compression.? Orthopedic surgery consulted and recommended outpatient follow-up with Neurosurgery.? Acetylcholine antibodies and?DIXIE negative.? Remains on cymbalta since 05/18. Gabapentin initiated 05/21. Continues to have pain which the norco helps but wears off after 3 hours. Change norco to q3h instead of q4h. -also started on gabapentin, increased further to 400 mg TID. 2. Altered mental status / metabolic encephalopathy Patient appears to be at baseline.? No evidence for withdrawal presently.? He is working with therapies on a daily basis and is slowly improving. 3. Hypertension Presently normotensive, not on therapy. 4. Hyperlipidemia Continue atorvastatin 5. Polysubstance dependence Although patient was intoxicated on admission, he has been?hospitalized for over 25 days.? There was evident concern early on that people were bringing controlled substances into the hospital.? However,? he has had restricted visitation since that time. 6. Prior stroke with residual right-sided weakness Patient remains on atorvastatin 40 mg, aspirin 81 mg. 7. Microcytic anemia MCV is up to 71.? Hemoglobin is 11.? 8. Hepatitis C Hep C ab positive. Hep C RNA >1 million. Will need outpatient f/u. Resolved issues: Acute respiratory failure d/t pneumonia Oral Thrush ? Code status Full ?prophylaxis On Lovenox ?Disposition Pending placement.? Currently 1 person assist per PT. Time Spent With Patient Critical Care time: I spent a total of [] minutes of critical care time on this patient's care today; this time is exclusive of procedural time. Quality VTE Deep Vein Thrombosis/Pulmonary Embolism Present on Admission: No
[2022-05-31 18:00] VITALS: BP 132/65; PULSE 79; RESP 18; O2SAT 95
[2022-05-31] MEDS: ATORVASTATIN 20 MG TABLET 40 MG PO (20:52)
[2022-06-01] VITALS: BP 120/72; PULSE 77; RESP 18; O2SAT 97
[2022-06-01] MEDS: HYDROCODONE/ACET 5/325 TABLET 1 TAB PO ×6 (01:29→19:36)
[2022-06-01 06:00] VITALS: BP 127/71; PULSE 74; RESP 17; O2SAT 95
--- NOTE | 2022-06-01 09:08 | PC.NURSE ---
Addendum entered by Marylou Nagel R.N. 06/01/22 14:48: Patient given another vicodin around 1340, he has been agitated today, he throwing his water on the floor and his brief. Will talk to patient about this. He states that this is a hotel and not a hospital. Patient has not been on his call light as per usual today. Continue to monitor behavior. Original Note: Patient is in good spirits today, he is joking with staff. He is a 2 person assist with walker to ambulate. Appetite is good. He denies pain at this time. Taking vicodin for pain, eating now.
[2022-06-01] MEDS: DULOXETINE 30 MG CAPSULE PO (10:03)
[2022-06-01] MEDS: PANTOPRAZOLE DR 40 MG TABLET PO ×2 (10:04→21:13)
[2022-06-01] MEDS: FOLIC ACID 1 MG TABLET PO (10:04)
[2022-06-01] MEDS: DOCUSATE 100 MG CAPSULE PO ×2 (10:04→21:13)
[2022-06-01] MEDS: SENNOSIDES 8.6 MG TABLET PO ×2 (10:04→21:13)
[2022-06-01] MEDS: MULTIVITAMIN 1 TABLET 1 TAB PO (10:04)
[2022-06-01] MEDS: GABAPENTIN 400 MG CAPSULE PO ×3 (10:04→21:13)
[2022-06-01] MEDS: NICOTINE 7 MG PATCH TOP (10:05)
--- NOTE | 2022-06-01 11:22 | PT-IP ANOTE ---
Attempted to see pt at 11:22, pt refused therapy at this time stating that he is very frustrated because he feels he received too many stool softeners and does not think he can hold his stool during ambulation. Will check back in PM.
--- NOTE | 2022-06-01 11:29 | CM.DPC ---
DCP Note: DCP spoke with [facility] regarding pt. I verbalized to them that the tentative daily rate is $121.61. [facility] verbalized to DCP that Mey, the main admissions person, would not be back into the office until Saturday. Mey is in charge of setting up assessments to determine if pt is a good fit for this facility. [facility] wants to make it clear that they are a non-smoking facility and that pt needs to be aware and agree to a non smoking policy. [facility] also provided DCP with another facility who accepts male patients and their name is [facility] who owns a facility in [facility]. They could be another option if pt is not a good fit for [facility]. DCP left message for ZITA Romero to return call to provide status on approved assessment. DCP to continue to follow. Roya More RN/AUTUMNP
--- NOTE | 2022-06-01 11:55 | DIET.CONS2 ---
Dietary Inpatient Consultation Note Admission Date: 05/01/2022 04:28 Sanjuana discussion with pt today telling me about his travels around the world and being in the [place]. Pt states his clothes will not fit him when he leaves because he is eating so much. Pt had been used to consuming two meals weekly, now having 3 per day and eating nearly 100%. Pt self feeding well using light, large handled flatware. Sending half portions, high pro sonja smoothies once daily. Nursing to update weight measure today. Diet: 05/25/22 Lunch Dysphagia Diet Diet Modifications: sonja pro smoothie once, lite big silver, 1/2 portn Liquid consistency: Normal/Thin Food texture: Dysphagia Advanced Nutrition Percent Meal Consumed 100% 06/01/22 10:00 Percent Meal Consumed 100% 05/31/22 08:44 Percent Meal Consumed 100% 05/30/22 17:33 Percent Meal Consumed 75% 05/30/22 12:56 Electronically Signed by: Michaela Alicea 06/01/22 11:55 Clinical Dietitian [address] [address]
[2022-06-01 12:00] VITALS: BP 130/78; PULSE 84; RESP 18; O2SAT 96
--- NOTE | 2022-06-01 13:06 | ST.IPDYTX ---
Visit Care Team Role Provider Type Amarilis Alcantara MD Other Providers Physician Specialty: Orthopedics Orthopedic Surgery Address: [address] [place], [address] Email: [email or web address] Julito Richmond MD Other Providers Physician Specialty: Psychiatry Address: [facility] [facility], [address], [place], [address] Email: [email or web address] Kenney Joshi MD Family Provider Non-Staff Primary Care Provider Specialty: Family Practice Address: [address] [facility], [address] [place] [address], [address] Email: Richard Hannon DO Emergency Provider Physician Referring Provider Specialty: Emergency Medicine Address: [address] [place] [address], [address] Email: [email or web address] JONATHAN Sampson Admit Provider Physician Attending Provider Specialty: Internal Medicine Address: [address] [place] [address], [address] Email: [email or web address] GRADER Dysphagia Treatment NEEDLE GRADER Clinical Instructor Line Start: 05/07/22 11:09 Freq: Status: Active Protocol: Document 05/17/22 11:23 MG (Rec: 05/17/22 11:24 MG [id number]) Clinical Instructor Signature Clinical Instructor Clinical Instructor Yes: Yarelis Foster MA, [facility]-NEEDLE GRADER NEEDLE GRADER Dysphagia Treatment Start: 05/07/22 09:45 Freq: Status: Active Protocol: Document 06/01/22 12:57 MG (Rec: 06/01/22 13:05 MG [id number]) Dysphagia Treatment Session Time Visit Start Time 12:10 Visit Stop Time 12:40 Total Visit Minutes 30 Setting Assessment Location Acute Care Visit Type Note Type Discharge Summary Patient Information Identification Type Name,ID Wristband Subjective Observations Pt was lying in bed when NEEDLE GRADER arrived with meal tray to observe him eat lunch. Pt was in an upset mood and reported he did not want to move or eat . Per NEEDLE GRADER observation, his voice appears to continue to be at an appropriate volume. Per nurse, no concerns with diet tolerance, taking medication, and speaking volume at this time. Treatment Treatment Activities Pt reported no difficulty with chewing/swallowing breakfast and reported he ate his whole meal. Pt also noted that he has no concerns with his speech/swallowing when initially asked by this NEEDLE GRADER. When asked, pt could relay to this NEEDLE GRADER his safe swallowing precautions (e.g., eat slowly) . Pt added he feels like he is getting too fat because he is eating all the time. Pt continues to be at baseline at this time and is no longer in need of speech therapy. Recommend his current diet which is noted to be baseline from earlier intake information he provided ST with. Pt may have added familiar snacks of his choosing (e.g., pt had Cheetos in the room and reported no difficulty eating them). Assessment Patient Response to Treatment Good Rehab Potential Good Assessment of Improvement Pt appeared to have no concerns when tolerated solids /liquids trialled at this time. Diet appears to be effective at this time and continue to recommend current diet. Diet Recommendations Recommendations Continue Current Diet Liquids Order Thin Diet Order Dysphagia Advanced Medication Recommendations As Tolerated,Whole in Carrier Additional Dietary Needs Chopped Food,Single Sips, Controlled Sips,Encourage to Self-Feed,Reminders to Use Strategies Aspiration Precautions Recommended Precautions Upright at 90 Degrees,Frequent Rest Periods,Small Bites/Sips ,Chin Tuck,Double Swallow, Check for Pocketing Treatment Plan Placement Recommendation after Discharge Half-Way Facility,Custodial Care Facility Appropriate for Continued Therapy No Therapy Recommendations Pt can be discharged at this time based on evidence that he is at his baseline prior to entering the hospital.
--- NOTE | 2022-06-01 14:45 | PT.IPTN ---
Current Diagnoses Depression, unspecified (05/01/22) Cerebral infarction, unspecified (05/01/22) Spinal stenosis, cervical region (05/01/22) Physical Therapy Treatment Note M2 PT-IP Current Condition Start: 05/07/22 09:18 Freq: NEEDED Status: Active Protocol: Document 05/18/22 13:22 SP (Rec: 05/18/22 16:05 SP [id number]) Physical Therapy Current Condition Current Condition Evaluation Date 05/07/22 Treatment Diagnosis metabolic encephalopathy; polysubstance withdrawal; impaired mobility Onset Date 04/30/22 M3 PT-IP Subjective Start: 05/07/22 09:18 Freq: NEEDED Status: Active Protocol: Document 06/01/22 13:49 KS (Rec: 06/01/22 14:59 KS [id number]) Subjective Physical Therapy Visit Type Type Treatment Note Visit Start Time 13:49 Visit Stop Time 14:45 Total Visit Minutes 56 Notes co-treat w/ OT. Number of JUKEBOX CHECKER Visits 8 Physical Therapy Visit Comments Patient Comments Pt agreeable to working w/ therapy. M4 PT-IP Mobility and Gait Start: 05/07/22 09:18 Freq: NEEDED Status: Active Protocol: Document 06/01/22 13:49 KS (Rec: 06/01/22 14:59 KS [id number]) PT-Bed Mobility Assessment Supine to Sit Supine to Sit Standby Assistance,1 Person Assistance,Bedrails Scooting Scooting to Edge of Bed Contact Guard Assistance PT-Transfer Assessment Sit to and From Stand Sit to and from Stand Minimal Assistance,Moderate Assistance,2 Person Assistance ,Use of Upper Extremities Equipment Transfer Assistive Device Gait Belt,Front Wheeled Walker Orthotic/Prosthetic Devices or Brace: No Transfers Transfer Destination Chair,Wheelchair Transfer Technique Pt ambulated w/ FWW Transfer Ability Level of Assist Moderate Assistance,Maximum Assistance,2 Person Assistance ,Use of Upper Extremities Comments Mobility Comments Pt in bed upon arrival and needing to have bowel movement . SBA for sup<>sit and CGA for scooting EOB w/ safety cues. Pt ambulated to bathroom Min - Mod A x2 w/ FWW w/ cues. After using toilet, pt ambulated ~150 ft total w/ FWW w/ 5x seated rest breaks at different distance intervals due to fatigue. Pts gait worsens w/ distance and fatigue. At first he requires Min A x2 w/ FWW, then Mod A x2 and towards end Max A x2 w/ max cues. Scissoring gait and unequal steps sporadically throughout. Two transfers Mod A x2 from w/c to weight chair and then chair in room. Pt left in chair w/ all needs in reach. Gait Assessment Gait Gait Assistance Required: Minimum Assistance,Moderate Assistance,Maximum Assistance, 2 Person Assist Distance (Feet) 40 Assistive Devices Assistive Device Gait Belt,Front Wheeled Walker Orthotic/Prosthetic Devices or Brace: No Gait Deviations General Gait Pattern Ataxic,Decreased Stride Length ,Decreased Feet Clearance, Flexed Trunk,Lateral Trunk Lean,Narrow Based Gait,Step-to Gait Factors Limiting Gait Function Factors Limiting Gait Function Decreased Activity Tolerance, Decreased Strength,Difficulty Following Directions, Incoordination,Pain,Poor Balance,Poor Safety Awareness Comments Gait Comments Please see mobility for details. PT-Balance Assessment Sitting Balance and Reactions Static Sitting Balance Ability Fair Dynamic Sitting Balance Ability Fair Standing Balance and Reactions Static Standing Balance Ability Poor Dynamic Standing Balance Ability Poor Device Used FWW M5 PT-IP Objective Assessments Start: 05/07/22 09:18 Freq: NEEDED Status: Active Protocol: Document 05/07/22 11:05 AW (Rec: 05/07/22 13:30 AW [id number]) Orientation Orientation/Cognition Level of Alertness Lethargic Orientation Name,Month,Place Safety Awareness Decreased Safety Awareness Gross Range of Motion Lower Extremity ROM Assessment Within Functional Limits Strength Lower Extremity Strength Assessment Bilaterally Impaired Comments Strength Comments R grossly 3-/5. L grossly 3+/5 Coordination Assessment Gross Coordination Gross Coordination Impaired Assessment Finger to Nose Test Activity Impossible Foot Tapping Test Minimal Impairment Coordination Comments Pt limited by BUE weakness with UE coordination testing. Sensation Assessment Sensation Gross Sensation WNL Muscle Tone Muscle Tone WNL Yes M6 PT-IP Treatment Start: 05/07/22 09:18 Freq: NEEDED Status: Active Protocol: Document 06/01/22 13:49 KS (Rec: 06/01/22 14:59 KS [id number]) Physical Therapy Treatment Education Education Provided Safety M7 PT-IP Assessment and Plan Start: 05/07/22 09:18 Freq: NEEDED Status: Active Protocol: Document 06/01/22 13:49 KS (Rec: 06/01/22 14:59 KS [id number]) PT Summary Assessment and Plan Potential Rehabilitation Potential Fair Status of Condition at Evaluation Evolving Summary Impairments Strength,Balance,Coordination, Cognition,Bed Mobility, Transfers,Gait Progress Towards Goals Slow Progress due to Medical Issues,Slow Progress due to Activity Tolerance Assessment Summary Pt unable to progress gait distance today, but showed improvements w/ turning and less impulsivity today. Ambulated ~150 ft w/ 5 seated rest breaks due to fatigue, requiring gradually more assist w/ further distance but needing at least 2PA and handd over hand on RUE and max cues w/ FWW. Pt would benefit from continued skilled therapy, and will require SNF and custodial care placement to improve functional mobility and strength. Goals Bed Mobility Goal Contact Guard Assistance Transfer Goal Standby Assistance,Front Wheeled Walker Gait Goal Standby Assistance,Front Wheel Walker Gait Distance 150 Other Goals up/down 4 steps with rails SBA - improve transfers and gait to SBA with 4WW Days to Meet Goals 10 Frequency of Treatment Frequency Of Treatment Once a Day Treatment Plan Physical Therapy Treatment Plan Bed Mobility Training,Transfer Training,Gait Training, Therapeutic Exercise,Balance Retraining,Discharge Planning, Hot or Cold Pack,Neuromuscular Re-ed,Coordination Retraining Other Recommendations and Next Treatment bed mob, sitting balance Focus activities, standing, transfers, gait using FWW chair follow. Consider using mirror for midline orientation . Precautions Other Precautions seizure precautions; falls risk Recommendations To Nursing Amount of Assist Needed 2 Person Assist Discharge Recommendations PT Discharge Recommendations SNF Rehab,LTAC Equipment Needed for Home Before FWW Discharge Transportation Needs at Discharge Wheelchair/Cabulance,Stretcher /Ambulance
--- NOTE | 2022-06-01 14:45 | OT.IP.TRT ---
Current Diagnoses Depression, unspecified (05/01/22) Cerebral infarction, unspecified (05/01/22) Spinal stenosis, cervical region (05/01/22) Occupational Therapy Treatment Note M2 OT-IP Current Condition Start: 05/07/22 12:13 Freq: Status: Active Protocol: Document 05/07/22 12:13 CGR (Rec: 05/07/22 12:37 CGR [id number]) Occupational Therapy Current Condition Current Condition Evaluation Date 05/07/22 Treatment Diagnosis generalized weakness, hx IV drug use, R CVA 2015 Diagnosis Onset Date 05/01/22 M3 OT- IP Subjective and Pain Start: 05/07/22 12:13 Freq: Status: Active Protocol: Document 06/01/22 14:54 CGR (Rec: 06/01/22 15:04 CGR [id number]) OT- Subjective Occupational Therapy Visit Type Type Progress Note Visit Start Time 13:49 Visit Stop Time 14:45 Total Visit Minutes 56 Notes co-treat with p.t. Occupational Therapy Visit Comments Patient Comments I need to poop. OT Pain Assessment Pain When Pain Assessed At Rest Pain Present Pain Present Denied Pain M4 OT- IP ADL's Start: 05/07/22 12:13 Freq: Status: Active Protocol: Document 06/01/22 14:54 CGR (Rec: 06/01/22 15:04 CGR [id number]) OT [id number] Comments OT Self-Feeding Comments not meal time OT ADL-Grooming General Evaluation Grooming Ability Maximum Assistance Areas Needing Assistance Combing/Brushing Hair Comments OT Grooming Comments sitting EOB OT ADL-Oral Care Comments Oral Care Comments not performed OT ADL-Dressing General Eval Lower Body Dressing Ability Moderate Assistance Areas Needing Assistance Underpants/Brief Comments OT Dressing Comments min assist for threading then needed full assist for pulling up once standing. OT ADL-Toileting General Evaluation Toileting Ability Total Assistance Areas Needing Assistance Manage Clothing,Perform Perineal Hygiene Comments OT Toileting Comments Pt had large BM seated on toielt. Pt needed total assist for back pericare. OT ADL-Bathing Comments OT Bathing Comments not performed M5 OT- IP IADL's Start: 05/07/22 12:13 Freq: Status: Active Protocol: Document 05/07/22 12:13 CGR (Rec: 05/07/22 12:37 CGR [id number]) OT-Instrumental Activities of Daily Living Deficits IADL Deficits Identified Deficits Home Safety Awareness Awareness of Need for Assistance at Home Decreased Awareness Ability to Problem Solve Emergency Unable to Problem Solve Situations Medication Management Medication Management Comments Concerns about pt's ability to perform consistently Money Management Money Management Comments Concerns about pt's ability to perform consistently Meal Preparation Meal Preparation Comments Concerns about pt's ability to perform consistently Physically Impaired Teacher Physically Impaired Teacher Comments Concerns about pt's ability to perform consistently M6 OT- IP Functional Cognition Start: 05/07/22 12:13 Freq: Status: Active Protocol: Document 05/31/22 12:28 CGR (Rec: 05/31/22 12:44 CGR [id number]) Cognitive Factors Limiting Selfcare Function Cognitive Ability Level of Alertness Alert Patient Orientation Name,Age,Birthday,Month,Date, Year,Day of Week,Place, Situation Attention Span Ability Capable of Focused Attention, Capable of Sustained Attention Cognitive Comments Cognitive Assessment Comments Pt is impulsive with movement at time. OT- Vision and Hearing OT- Hearing Assessment OT- Hearing Assessment WFL OT- Vision Assessment Occular Pursuits WFL Visual Convergence Impaired Vision Assessment Comments Pt's right eye diverts to the right with convergence. M7 OT- IP Mobility and Balance Start: 05/07/22 12:13 Freq: Status: Active Protocol: Document 06/01/22 14:54 CGR (Rec: 06/01/22 15:04 CGR [id number]) OT- Bed Mobility Assessment Supine to Sit Supine to Sit Assist Minimal Assistance Scooting Scooting to Edge of Bed Standby Assistance OT-Transfer Assessment Sit to and From Stand Sit to and from Stand Minimal Assistance,Moderate Assistance,2 Person Assistance Transfers Transfer Ability Minimal Assistance,Moderate Assistance,Maximum Assistance, 2 Person Assistance Technique Transfer Destination Bed,Chair,Toilet Transfer Technique Stand Step Pivot Devices Transfer Assistive Devices Gait Belt,Front Wheeled Walker Comments Mobility Comments Pt transfered to toielt for BM then back to chair before ambulating in [place]. OT- Gait Assessment Gait Gait Assistance Required: Minimum Assistance,Moderate Assistance,Maximum Assistance, 2 Person Assist Assistive Devices Assistive Device Gait Belt,Front Wheeled Walker Comments Gait Ability Comments Pt ambualted in the [place]. See p.t. note for distance. Pt was able to walk further before first rest break. Pt with better control and significantly better control around corners. Pt is progressing with his mobility. OT- Balance Assessment Sitting Balance and Reactions Static Sitting Balance Ability Fair Dynamic Sitting Balance Ability Fair M8 OT- IP Objective Assessments Start: 05/07/22 12:13 Freq: Status: Active Protocol: Document 05/07/22 12:13 CGR (Rec: 05/07/22 12:37 CGR [id number]) OT Gross Range of Motion Upper Extremity Range of Motion ROM Impairments AAROM WFL OT Strength Upper Extremity Strength Assessment Bilaterally Impaired Comments Strength Comments R weaker than L R grossly 2/5 L grossly 2+ to 3-/5 OT- Coordination Assessment Upper Extremity Finger to Nose Test Bilateral UE Impaired Finger Tapping Test Bilateral UE Impaired OT-Muscle Tone Assessment Muscle Tone WNL Yes OT Sensation Assessment Edema Edema Absent M9 OT- IP Assessment and Plan Start: 05/07/22 12:13 Freq: Status: Active Protocol: Document 06/01/22 14:54 CGR (Rec: 06/01/22 15:04 CGR [id number]) OT Summary Assessment and Plan Potential Rehabilitation Potential Fair Analytic Complexity at Evaluation High Summary OT Impairments Pain,Strength,Balance, Coordination,Functional Cognition,Functional Mobility, Self-Feeding,Grooming,Dressing ,Toileting,Bathing,Toilet Transfers,Shower Transfers, Activity Tolerance Progress Towards Goals Slow Progress due to Pain,Slow Progress due to Medical Issues,Slow Progress due to Activity Tolerance Assessment Summary Pt participated in mobility during todays session. Pt initially needing min x2 but progresses to needed heavy mod x2 for most of the rest of his mobility. Pt requires max x 2 at times especially at end of ambulation. Pt with better control today especially noted around turns. Pt with good motivation and participation and able to follow commands for slowing steps, and better placement of feet. Goals Self-Feeding Goal Standby Assistance Grooming Goal Minimal Assistance Dressing Goal Moderate Assistance Toileting Goal Moderate Assistance Bathing Goal Moderate Assistance Toilet Transfer Goal Minimal Assistance Shower Transfer Goal Minimal Assistance Days to Meet Goals 41 Frequency of Treatment Frequency Of Treatment Once a Day Treatment Plan OT Treatment Plan ADL Training,Functional Cognition Training,Functional Mobility,Neuromuscular Re- education,Therapeutic Exercises,Patient/Family Education,Discharge Planning Other Treatment Recommendations and Next continue with functional Treatment Focus mobility, LB dressing, ADLs at sink Discharge Recommendations OT Discharge Recommendations SNF Rehab,LTAC Transportation Needs at Discharge Wheelchair/Cabulance
[2022-06-01] MEDS: ENOXAPARIN 40 MG/0.4 ML SYRINGE SUBCUT (15:00)
[2022-06-01] MEDS: SCOPOLAMINE 1 PATCH TOP (15:00)
--- NOTE | 2022-06-01 16:29 | PM.PN.1 ---
Subjective Subjective Date Patient Seen: 06/01/22 Interval history: Still having significant pain in his arm which he described as hooks stuck in his fingers with associated numbness. Also with continued spasticity Exam Vital Signs (past 8 hours): - 06/01/22 12:00 Pulse Rate 84 Respiratory Rate 18 Blood Pressure 130/78 Pulse Oximetry 96 Oxygen Flow Rate 0 Oxygen Delivery Method Room Air Oxygen Flow Rate 0 Narrative Exam Narrative: GEN: Middle-aged male, very thin, temporal wasting, Alert and oriented x 3, NAD HEENT:NC, Face symmetric CHEST: Respiratory excursions symmetric, CTAB CV: RRR, no M/R/G ABD: Soft, NT/ND, BT present in all 4 quadrants, no organomegaly or masses EXTR: warm, well perfused, no C/C/E, right upper extremity remains weak, poor mobility SKIN: warm and dry, no rash NEURO: Alert and oriented x 3. Objective Labs Result Diagrams: 05/23/22 21:21 05/26/22 11:03 Labs: Laboratory Results - last 24 hr 05/20/22 18:50 Beta [facility]assem[facility] Comment [facility] Medical History Asthma Chronic back pain greater than 3 months duration Closed intertrochanteric fracture of left femur Depression Drug abuse, IV History of CVA (cerebrovascular accident) Surgical History History of hernia repair Family History Father Unknown family medical history Mother No problems noted. Grandmother Myocardial infarction Grandfather No problems noted. Social History household members: friend(s) Smoking Status: Current some day smoker alcohol intake: current Assessment & Plan Assessment & Plan narrative: 1.? Weakness Patient appears to be chronically debilitated.? No evidence of new stroke on 2 different brain MRIs.? C-spine MRI did reveal some chronic pathology but no acute cord compression.? Orthopedic surgery consulted and recommended outpatient follow-up with Neurosurgery.? Acetylcholine antibodies and?DIXIE negative.? Remains on cymbalta since 05/18. Gabapentin initiated 05/21. Continues to have pain which the norco helps but wears off after 3 hours. Change norco to q3h instead of q4h. -also started on gabapentin, increased further to 400 mg TID. 2. Altered mental status / metabolic encephalopathy Patient appears to be at baseline.? No evidence for withdrawal presently.? He is working with therapies on a daily basis and is slowly improving. 3. Hypertension Presently normotensive, not on therapy. 4. Hyperlipidemia Continue atorvastatin 5. Polysubstance dependence Although patient was intoxicated on admission, he has been?hospitalized for over 25 days.? There was evident concern early on that people were bringing controlled substances into the hospital.? However,? he has had restricted visitation since that time. 6. Prior stroke with residual right-sided weakness Patient remains on atorvastatin 40 mg, aspirin 81 mg. 7. Microcytic anemia MCV is up to 71.? Hemoglobin is 11.? 8. Hepatitis C Hep C ab positive. Hep C RNA >1 million. Will need outpatient f/u. Resolved issues: Acute respiratory failure d/t pneumonia Oral Thrush ? Code status Full ?prophylaxis On Lovenox ?Disposition Pending placement.? Currently 1 person assist per PT. Time Spent With Patient Critical Care time: I spent a total of [] minutes of critical care time on this patient's care today; this time is exclusive of procedural time. Quality VTE Deep Vein Thrombosis/Pulmonary Embolism Present on Admission: No
[2022-06-01 20:00] VITALS: BP 145/81; PULSE 91; RESP 16; TEMP 36.2; O2SAT 98
[2022-06-01 20:10] VITALS: O2SAT 98
[2022-06-01] MEDS: METOCLOPRAMIDE 10 MG/2 ML INJ IV (21:13)
[2022-06-01] MEDS: SODIUM CHLORIDE 0.9% FLUSH 10 ML IV (21:13)
[2022-06-01] MEDS: LORazepam 1 MG TABLET 0.5 MG PO (22:20)
[2022-06-02] MEDS: HYDROCODONE/ACET 5/325 TABLET 1 TAB PO ×5 (06:28→20:38)
[2022-06-02] MEDS: DULOXETINE 30 MG CAPSULE PO (09:24)
[2022-06-02] MEDS: GABAPENTIN 400 MG CAPSULE PO ×3 (09:24→20:29)
[2022-06-02] MEDS: PANTOPRAZOLE DR 40 MG TABLET PO ×2 (09:25→20:29)
[2022-06-02] MEDS: FOLIC ACID 1 MG TABLET PO (09:25)
[2022-06-02] MEDS: DOCUSATE 100 MG CAPSULE PO (09:25)
[2022-06-02] MEDS: MULTIVITAMIN 1 TABLET 1 TAB PO (09:25)
[2022-06-02] MEDS: SENNOSIDES 8.6 MG TABLET PO (09:26)
[2022-06-02] MEDS: ENOXAPARIN 40 MG/0.4 ML SYRINGE SUBCUT (09:26)
[2022-06-02] MEDS: NICOTINE 7 MG PATCH TOP (09:26)
--- NOTE | 2022-06-02 11:33 | PM.PN.1 ---
Subjective Subjective Date Patient Seen: 06/02/22 Interval history: Pain feels better today, still complains of tingling but this is much better today. Feels much better and upbeat about things today. Exam Vital Signs (past 8 hours): Oxygen Delivery Method Room Air Oxygen Flow Rate 0 Narrative Exam Narrative: GEN: Middle-aged male, very thin, temporal wasting, Alert and oriented x 3, NAD HEENT:NC, Face symmetric CHEST: Respiratory excursions symmetric, CTAB CV: RRR, no M/R/G ABD: Soft, NT/ND, BT present in all 4 quadrants, no organomegaly or masses EXTR: warm, well perfused, no C/C/E, right upper extremity remains weak, poor mobility SKIN: warm and dry, no rash NEURO: Alert and oriented x 3. Objective Labs Result Diagrams: 05/23/22 21:21 05/26/22 11:03 [facility] Medical History Asthma Chronic back pain greater than 3 months duration Closed intertrochanteric fracture of left femur Depression Drug abuse, IV History of CVA (cerebrovascular accident) Surgical History History of hernia repair Family History Father Unknown family medical history Mother No problems noted. Grandmother Myocardial infarction Grandfather No problems noted. Social History household members: friend(s) Smoking Status: Current some day smoker alcohol intake: current Assessment & Plan Assessment & Plan narrative: 1.? Weakness Patient appears to be chronically debilitated.? No evidence of new stroke on 2 different brain MRIs.? C-spine MRI did reveal some chronic pathology but no acute cord compression.? Orthopedic surgery consulted and recommended outpatient follow-up with Neurosurgery.? Acetylcholine antibodies and?DIXIE negative.? Remains on cymbalta since 05/18. Gabapentin initiated 05/21. Continues to have pain which the norco helps but wears off after 3 hours. Change norco to q3h instead of q4h. -also started on gabapentin, increased further to 400 mg TID. 2. Altered mental status / metabolic encephalopathy Patient appears to be at baseline.? No evidence for withdrawal presently.? He is working with therapies on a daily basis and is slowly improving. 3. Hypertension Presently normotensive, not on therapy. 4. Hyperlipidemia Continue atorvastatin 5. Polysubstance dependence Although patient was intoxicated on admission, he has been?hospitalized for over 25 days.? There was evident concern early on that people were bringing controlled substances into the hospital.? However,? he has had restricted visitation since that time. 6. Prior stroke with residual right-sided weakness Patient remains on atorvastatin 40 mg, aspirin 81 mg. 7. Microcytic anemia MCV is up to 71.? Hemoglobin is 11.? 8. Hepatitis C Hep C ab positive. Hep C RNA >1 million. Will need outpatient f/u. Resolved issues: Acute respiratory failure d/t pneumonia Oral Thrush ? Code status Full ?prophylaxis On Lovenox ?Disposition Pending placement.? Currently 1 person assist per PT. Time Spent With Patient Critical Care time: I spent a total of [] minutes of critical care time on this patient's care today; this time is exclusive of procedural time. Quality VTE Deep Vein Thrombosis/Pulmonary Embolism Present on Admission: No
[2022-06-02 12:00] VITALS: BP 131/77; PULSE 89; RESP 16; TEMP 36.1; O2SAT 96
--- NOTE | 2022-06-02 12:26 | PT.IPTN ---
Current Diagnoses Depression, unspecified (05/01/22) Cerebral infarction, unspecified (05/01/22) Spinal stenosis, cervical region (05/01/22) Physical Therapy Treatment Note M2 PT-IP Current Condition Start: 05/07/22 09:18 Freq: NEEDED Status: Active Protocol: Document 05/18/22 13:22 SP (Rec: 05/18/22 16:05 SP [id number]) Physical Therapy Current Condition Current Condition Evaluation Date 05/07/22 Treatment Diagnosis metabolic encephalopathy; polysubstance withdrawal; impaired mobility Onset Date 04/30/22 M3 PT-IP Subjective Start: 05/07/22 09:18 Freq: NEEDED Status: Active Protocol: Document 06/02/22 11:53 KS (Rec: 06/02/22 12:50 KS [id number]) Subjective Physical Therapy Visit Type Type Treatment Note Visit Start Time 11:53 Visit Stop Time 12:26 Total Visit Minutes 33 Notes co-treat w/ OT. Number of MANAGER CRITICAL CARE Visits 9 Physical Therapy Visit Comments Patient Comments Pt agreeable to working w/ therapy. M4 PT-IP Mobility and Gait Start: 05/07/22 09:18 Freq: NEEDED Status: Active Protocol: Document 06/02/22 11:53 KS (Rec: 06/02/22 12:50 KS [id number]) PT-Bed Mobility Assessment Scooting Scooting to Edge of Bed Contact Guard Assistance PT-Transfer Assessment Sit to and From Stand Sit to and from Stand Minimal Assistance,Moderate Assistance,2 Person Assistance ,Use of Upper Extremities Equipment Transfer Assistive Device Gait Belt,Front Wheeled Walker Orthotic/Prosthetic Devices or Brace: No Transfers Transfer Destination Chair,Wheelchair Transfer Technique Pt ambulated w/ FWW Transfer Ability Level of Assist Moderate Assistance,Maximum Assistance,2 Person Assistance ,Use of Upper Extremities Comments Mobility Comments Pt in chair needing to be cleaned upon arrival. Required Min A x2 for sit<>stand and unable to provide his own pericare. Pt requires 2 PA at all times and frequnet safety cues as he tends to be impulsive, but remains highly motivated to make progress. Pt Min A x2 for sit<>Stand and Mod A x2 for ~60 ft ambulation in hallway w/ w/c follow prior to seated rest break. Pt completed additional 5 bouts of ambulation each ~30 ft w/ FWW and varying 2 PA from Min to Max w/ w/c follow. Pt requires cues for scooting slowly to edge of w/c, hand placement and sequencing for sit<>stand. Upon standing he needs cues for knee extension, upright posture, and widening base of support prior to initiating gait. While ambulating, he needs cues for slow and intensional steps, avoiding scissoring, and decreased stride length as well as FWW mgmt. Pt returned to room and required Max Ax2 for stand step pivot from w/c to chair due to fatigue. Gait Assessment Gait Gait Assistance Required: Minimum Assistance,Moderate Assistance,Maximum Assistance, 2 Person Assist Distance (Feet) 60 Assistive Devices Assistive Device Gait Belt,Front Wheeled Walker Orthotic/Prosthetic Devices or Brace: No Gait Deviations General Gait Pattern Ataxic,Decreased Stride Length ,Decreased Feet Clearance, Flexed Trunk,Lateral Trunk Lean,Narrow Based Gait,Step-to Gait Factors Limiting Gait Function Factors Limiting Gait Function Decreased Activity Tolerance, Decreased Strength,Difficulty Following Directions, Incoordination,Pain,Poor Balance,Poor Safety Awareness Comments Gait Comments Please see mobility for details. PT-Balance Assessment Sitting Balance and Reactions Static Sitting Balance Ability Fair Dynamic Sitting Balance Ability Fair Standing Balance and Reactions Static Standing Balance Ability Poor Dynamic Standing Balance Ability Poor Device Used FWW M5 PT-IP Objective Assessments Start: 05/07/22 09:18 Freq: NEEDED Status: Active Protocol: Document 05/07/22 11:05 AW (Rec: 05/07/22 13:30 AW [id number]) Orientation Orientation/Cognition Level of Alertness Lethargic Orientation Name,Month,Place Safety Awareness Decreased Safety Awareness Gross Range of Motion Lower Extremity ROM Assessment Within Functional Limits Strength Lower Extremity Strength Assessment Bilaterally Impaired Comments Strength Comments R grossly 3-/5. L grossly 3+/5 Coordination Assessment Gross Coordination Gross Coordination Impaired Assessment Finger to Nose Test Activity Impossible Foot Tapping Test Minimal Impairment Coordination Comments Pt limited by BUE weakness with UE coordination testing. Sensation Assessment Sensation Gross Sensation WNL Muscle Tone Muscle Tone WNL Yes M6 PT-IP Treatment Start: 05/07/22 09:18 Freq: NEEDED Status: Active Protocol: Document 06/02/22 11:53 KS (Rec: 06/02/22 12:50 KS [id number]) Physical Therapy Treatment Education Education Provided Safety M7 PT-IP Assessment and Plan Start: 05/07/22 09:18 Freq: NEEDED Status: Active Protocol: Document 06/02/22 11:53 KS (Rec: 06/02/22 12:50 KS [id number]) PT Summary Assessment and Plan Potential Rehabilitation Potential Fair Status of Condition at Evaluation Evolving Summary Impairments Strength,Balance,Coordination, Cognition,Bed Mobility, Transfers,Gait Progress Towards Goals Slow Progress due to Medical Issues,Slow Progress due to Activity Tolerance Assessment Summary Pt continues to require 2 PA and cues for transfers and ambulation w/ FWW w/ w/c follow. He can ambulate 30-60 ft typically before gait quality decreases quickly resulting in Max Ax2 and he needs seated rest breaks. Frequent cues for safety, sequencing, posture, and FWW management w/ hand over hand on R during ambulation. Pt would benefit from continued skilled therapy, and will require SNF and remote computer terminal operator care placement to improve functional mobility and strength. Goals Bed Mobility Goal Contact Guard Assistance Transfer Goal Standby Assistance,Front Wheeled Walker Gait Goal Standby Assistance,Front Wheel Walker Gait Distance 150 Other Goals up/down 4 steps with rails SBA - improve transfers and gait to SBA with 4WW Days to Meet Goals 10 Frequency of Treatment Frequency Of Treatment Once a Day Treatment Plan Physical Therapy Treatment Plan Bed Mobility Training,Transfer Training,Gait Training, Therapeutic Exercise,Balance Retraining,Discharge Planning, Hot or Cold Pack,Neuromuscular Re-ed,Coordination Retraining Other Recommendations and Next Treatment bed mob, sitting balance Focus activities, standing, transfers, gait using FWW chair follow. Consider using mirror for midline orientation . Precautions Other Precautions seizure precautions; falls risk Recommendations To Nursing Amount of Assist Needed 2 Person Assist Discharge Recommendations PT Discharge Recommendations SNF Rehab,LTAC Equipment Needed for Home Before FWW Discharge Transportation Needs at Discharge Wheelchair/Cabulance,Stretcher /Ambulance
--- NOTE | 2022-06-02 12:28 | OT.IP.TRT ---
Current Diagnoses Depression, unspecified (05/01/22) Cerebral infarction, unspecified (05/01/22) Spinal stenosis, cervical region (05/01/22) Occupational Therapy Treatment Note M2 OT-IP Current Condition Start: 05/07/22 12:13 Freq: Status: Active Protocol: Document 05/07/22 12:13 CGR (Rec: 05/07/22 12:37 CGR [id number]) Occupational Therapy Current Condition Current Condition Evaluation Date 05/07/22 Treatment Diagnosis generalized weakness, hx IV drug use, R CVA 2015 Diagnosis Onset Date 05/01/22 M3 OT- IP Subjective and Pain Start: 05/07/22 12:13 Freq: Status: Active Protocol: Document 06/02/22 14:08 CGR (Rec: 06/02/22 14:14 CGR [id number]) OT- Subjective Occupational Therapy Visit Type Type Progress Note Visit Start Time 11:52 Visit Stop Time 12:28 Total Visit Minutes 36 Notes co-treat with p.t. Occupational Therapy Visit Comments Patient Comments I am wet M4 OT- IP ADL's Start: 05/07/22 12:13 Freq: Status: Active Protocol: Document 06/02/22 14:08 CGR (Rec: 06/02/22 14:14 CGR [id number]) OT [id number] Comments OT Self-Feeding Comments not meal time OT ADL-Grooming Comments OT Grooming Comments not performed OT ADL-Oral Care Comments Oral Care Comments not performed OT ADL-Dressing General Eval Lower Body Dressing Ability Total Assistance Areas Needing Assistance Underpants/Brief Comments OT Dressing Comments total assist for threading, pericare and pulling up pants once standing OT ADL-Bathing Comments OT Bathing Comments not performed M5 OT- IP IADL's Start: 05/07/22 12:13 Freq: Status: Active Protocol: Document 05/07/22 12:13 CGR (Rec: 05/07/22 12:37 CGR [id number]) OT-Instrumental Activities of Daily Living Deficits IADL Deficits Identified Deficits Home Safety Awareness Awareness of Need for Assistance at Home Decreased Awareness Ability to Problem Solve Emergency Unable to Problem Solve Situations Medication Management Medication Management Comments Concerns about pt's ability to perform consistently Money Management Money Management Comments Concerns about pt's ability to perform consistently Meal Preparation Meal Preparation Comments Concerns about pt's ability to perform consistently Cylinder Inspector Cylinder Inspector Comments Concerns about pt's ability to perform consistently M6 OT- IP Functional Cognition Start: 05/07/22 12:13 Freq: Status: Active Protocol: Document 05/31/22 12:28 CGR (Rec: 05/31/22 12:44 CGR [id number]) Cognitive Factors Limiting Selfcare Function Cognitive Ability Level of Alertness Alert Patient Orientation Name,Age,Birthday,Month,Date, Year,Day of Week,Place, Situation Attention Span Ability Capable of Focused Attention, Capable of Sustained Attention Cognitive Comments Cognitive Assessment Comments Pt is impulsive with movement at time. OT- Vision and Hearing OT- Hearing Assessment OT- Hearing Assessment WFL OT- Vision Assessment Occular Pursuits WFL Visual Convergence Impaired Vision Assessment Comments Pt's right eye diverts to the right with convergence. M7 OT- IP Mobility and Balance Start: 05/07/22 12:13 Freq: Status: Active Protocol: Document 06/02/22 14:08 CGR (Rec: 06/02/22 14:14 CGR [id number]) OT-Transfer Assessment Sit to and From Stand Sit to and from Stand Minimal Assistance,Moderate Assistance,2 Person Assistance Transfers Transfer Ability Minimal Assistance,Moderate Assistance,Maximum Assistance, 2 Person Assistance Technique Transfer Destination Bed,Chair Transfer Technique Stand Step Pivot Devices Transfer Assistive Devices Gait Belt,Front Wheeled Walker OT- Gait Assessment Gait Gait Assistance Required: Minimum Assistance,Moderate Assistance,Maximum Assistance, 2 Person Assist Assistive Devices Assistive Device Gait Belt,Front Wheeled Walker Comments Gait Ability Comments Pt ambualted in the [place]. See p.t. note for distance. Pt is better able to control steps without talking and needs reminders to focus. Pt fatigued at end of session and needed more assist. OT- Balance Assessment Sitting Balance and Reactions Static Sitting Balance Ability Fair Dynamic Sitting Balance Ability Fair M8 OT- IP Objective Assessments Start: 05/07/22 12:13 Freq: Status: Active Protocol: Document 05/07/22 12:13 CGR (Rec: 05/07/22 12:37 CGR [id number]) OT Gross Range of Motion Upper Extremity Range of Motion ROM Impairments AAROM WFL OT Strength Upper Extremity Strength Assessment Bilaterally Impaired Comments Strength Comments R weaker than L R grossly 2/5 L grossly 2+ to 3-/5 OT- Coordination Assessment Upper Extremity Finger to Nose Test Bilateral UE Impaired Finger Tapping Test Bilateral UE Impaired OT-Muscle Tone Assessment Muscle Tone WNL Yes OT Sensation Assessment Edema Edema Absent M9 OT- IP Assessment and Plan Start: 05/07/22 12:13 Freq: Status: Active Protocol: Document 06/02/22 14:08 CGR (Rec: 06/02/22 14:14 CGR [id number]) OT Summary Assessment and Plan Potential Rehabilitation Potential Fair Analytic Complexity at Evaluation High Summary OT Impairments Pain,Strength,Balance, Coordination,Functional Cognition,Functional Mobility, Self-Feeding,Grooming,Dressing ,Toileting,Bathing,Toilet Transfers,Shower Transfers, Activity Tolerance Progress Towards Goals Slow Progress due to Pain,Slow Progress due to Medical Issues,Slow Progress due to Activity Tolerance Assessment Summary Pt particiapted in mobility during todays session. Pt initially needing min x2 but progresses to needed heavy mod x2 for most of the rest of his mobility. Pt requires max x 2 at times especially at end of ambulation. Pt with better control noted if he stops talking during mobility. Pt with good motivation and participation and able to follow commands for slowing steps, and better placement of feet. Goals Self-Feeding Goal Standby Assistance Grooming Goal Minimal Assistance Dressing Goal Moderate Assistance Toileting Goal Moderate Assistance Bathing Goal Moderate Assistance Toilet Transfer Goal Minimal Assistance Shower Transfer Goal Minimal Assistance Days to Meet Goals 41 Frequency of Treatment Frequency Of Treatment Once a Day Treatment Plan OT Treatment Plan ADL Training,Functional Cognition Training,Functional Mobility,Neuromuscular Re- education,Therapeutic Exercises,Patient/Family Education,Discharge Planning Other Treatment Recommendations and Next continue with functional Treatment Focus mobility, LB dressing, ADLs at sink Discharge Recommendations OT Discharge Recommendations SNF Rehab,LTAC Transportation Needs at Discharge Wheelchair/Cabulance
[2022-06-02] MEDS: METOCLOPRAMIDE 10 MG/2 ML INJ IV (20:29)
[2022-06-02] MEDS: SODIUM CHLORIDE 0.9% FLUSH 10 ML IV (20:29)
[2022-06-02] MEDS: LORazepam 1 MG TABLET 0.5 MG PO (23:17)
[2022-06-03] VITALS: BP 112/72; PULSE 83; RESP 16; TEMP 36.3; O2SAT 97
[2022-06-03] MEDS: HYDROCODONE/ACET 5/325 TABLET 1 TAB PO ×5 (01:02→20:36)
[2022-06-03] MEDS: ENOXAPARIN 40 MG/0.4 ML SYRINGE SUBCUT (09:13)
[2022-06-03] MEDS: MULTIVITAMIN 1 TABLET 1 TAB PO (09:14)
[2022-06-03] MEDS: NICOTINE 7 MG PATCH TOP (09:14)
[2022-06-03] MEDS: DULOXETINE 30 MG CAPSULE PO (09:14)
[2022-06-03] MEDS: SENNOSIDES 8.6 MG TABLET PO ×2 (09:14→21:50)
[2022-06-03] MEDS: GABAPENTIN 400 MG CAPSULE PO ×3 (09:14→21:50)
[2022-06-03] MEDS: DOCUSATE 100 MG CAPSULE PO ×2 (09:15→21:50)
[2022-06-03] MEDS: FOLIC ACID 1 MG TABLET PO (09:15)
[2022-06-03] MEDS: PANTOPRAZOLE DR 40 MG TABLET PO ×2 (09:15→21:49)
[2022-06-03] MEDS: LORazepam 1 MG TABLET 0.5 MG PO (11:42)
[2022-06-03 12:00] VITALS: BP 120/81; PULSE 82; RESP 17; TEMP 36.4; O2SAT 97
--- NOTE | 2022-06-03 13:08 | P.PN_ITS ---
Subjective Subjective Date Patient Seen: 06/03/22 Interval history: Complains of dental pain today, difficult to chew. Also with continued spasticity and pain / tingling. Exam Vital Signs (past 8 hours): Oxygen Delivery Method Room Air Oxygen Flow Rate 0 Narrative Exam Narrative: GEN: Middle-aged male, very thin, temporal wasting, Alert and oriented x 3, NAD HEENT:NC, Face symmetric CHEST: Respiratory excursions symmetric, CTAB CV: RRR, no M/R/G ABD: Soft, NT/ND, BT present in all 4 quadrants, no organomegaly or masses EXTR: warm, well perfused, no C/C/E, right upper extremity remains weak, poor mobility SKIN: warm and dry, no rash NEURO: Alert and oriented x 3. Objective Labs Result Diagrams: 05/23/22 21:21 05/26/22 11:03 [facility] Medical History Asthma Chronic back pain greater than 3 months duration Closed intertrochanteric fracture of left femur Depression Drug abuse, IV History of CVA (cerebrovascular accident) Surgical History History of hernia repair Family History Father Unknown family medical history Mother No problems noted. Grandmother Myocardial infarction Grandfather No problems noted. Social History household members: friend(s) Smoking Status: Current some day smoker alcohol intake: current Assessment & Plan Assessment & Plan narrative: 1.? Weakness Patient appears to be chronically debilitated.? No evidence of new stroke on 2 different brain MRIs.? C-spine MRI did reveal some chronic pathology but no acute cord compression.? Orthopedic surgery consulted and recommended outpatient follow-up with Neurosurgery.? Acetylcholine antibodies and?DIXIE negative.? Remains on cymbalta since 05/18. Gabapentin initiated 05/21. Continues to have pain which the norco helps but wears off after 3 hours. Change norco to q3h instead of q4h. -also started on gabapentin, increased further to 400 mg TID. -will start on scheduled ativan for continued spasticity. -recommend outpatient neurology 2. Altered mental status / metabolic encephalopathy, improved. Patient appears to be at baseline.? No evidence for withdrawal presently.? He is working with therapies on a daily basis and is slowly improving. 3. Hypertension Presently normotensive, not on therapy. 4. Hyperlipidemia Continue atorvastatin 5. Polysubstance dependence Although patient was intoxicated on admission, he has been?hospitalized for over 25 days.? There was evident concern early on that people were bringing controlled substances into the hospital.? However,? he has had restricted visitation since that time. 6. Prior stroke with residual right-sided weakness Patient remains on atorvastatin 40 mg, aspirin 81 mg. 7. Microcytic anemia MCV is up to 71.? Hemoglobin is 11.? 8. Hepatitis C Hep C ab positive. Hep C RNA >1 million. Will need outpatient f/u. 9. Dental pain - topical agents as needed for now. - consider dental consult depending on continued pain. Resolved issues: Acute respiratory failure d/t pneumonia Oral Thrush ? Code status Full ?prophylaxis On Lovenox ?Disposition Pending placement.? Currently 1 person assist per PT. Time Spent With Patient Critical Care time: I spent a total of [] minutes of critical care time on this patient's care today; this time is exclusive of procedural time. Quality VTE Deep Vein Thrombosis/Pulmonary Embolism Present on Admission: No
[2022-06-03] MEDS: IBUPROFEN 400 MG TABLET 800 MG PO (16:59)
[2022-06-03 20:00] VITALS: BP 120/73; PULSE 80; RESP 16; TEMP 36.5; O2SAT 96
[2022-06-03] MEDS: LORazepam 0.5 MG TABLET PO (21:50)
[2022-06-04] VITALS: RESP 16
[2022-06-04 06:00] VITALS: BP 123/61; PULSE 59; RESP 16; TEMP 35.8; O2SAT 97
[2022-06-04] MEDS: HYDROCODONE/ACET 5/325 TABLET 1 TAB PO ×5 (06:43→23:59)
[2022-06-04] MEDS: ENOXAPARIN 40 MG/0.4 ML SYRINGE SUBCUT (08:54)
[2022-06-04] MEDS: NICOTINE 7 MG PATCH TOP (08:54)
[2022-06-04] MEDS: IBUPROFEN 400 MG TABLET 800 MG PO ×2 (08:54→18:04)
[2022-06-04] MEDS: DULOXETINE 30 MG CAPSULE PO (08:54)
[2022-06-04] MEDS: PANTOPRAZOLE DR 40 MG TABLET PO ×2 (08:55→20:46)
[2022-06-04] MEDS: DOCUSATE 100 MG CAPSULE PO ×2 (08:55→20:46)
[2022-06-04] MEDS: MULTIVITAMIN 1 TABLET 1 TAB PO (08:55)
[2022-06-04] MEDS: SENNOSIDES 8.6 MG TABLET PO ×2 (08:55→20:46)
[2022-06-04] MEDS: FOLIC ACID 1 MG TABLET PO (08:55)
[2022-06-04] MEDS: GABAPENTIN 400 MG CAPSULE PO ×3 (08:55→20:46)
[2022-06-04] MEDS: LORazepam 0.5 MG TABLET PO ×2 (08:58→20:48)
--- NOTE | 2022-06-04 11:54 | PT.IPTN ---
Current Diagnoses Depression, unspecified (05/01/22) Cerebral infarction, unspecified (05/01/22) Spinal stenosis, cervical region (05/01/22) Physical Therapy Treatment Note M2 PT-IP Current Condition Start: 05/07/22 09:18 Freq: NEEDED Status: Active Protocol: Document 05/18/22 13:22 SP (Rec: 05/18/22 16:05 SP [id number]) Physical Therapy Current Condition Current Condition Evaluation Date 05/07/22 Treatment Diagnosis metabolic encephalopathy; polysubstance withdrawal; impaired mobility Onset Date 04/30/22 M3 PT-IP Subjective Start: 05/07/22 09:18 Freq: NEEDED Status: Active Protocol: Document 06/04/22 11:54 AW (Rec: 06/04/22 12:57 AW [id number]) Subjective Physical Therapy Visit Type Type Treatment Note Visit Start Time 11:27 Visit Stop Time 11:54 Total Visit Minutes 27 Notes co-treat w/ OT. Number of ONLINE ADVERTISING MANAGER Visits 0 Physical Therapy Visit Comments Patient Comments I need to call my friends so they can bring my dog up here. Therapy Pain Assessment Pain When Pain Assessed At Rest Pain Present Pain Present Pain Reported Location teeth Intensity 20 Scale Used Numeric (0 - 10) M4 PT-IP Mobility and Gait Start: 05/07/22 09:18 Freq: NEEDED Status: Active Protocol: Document 06/04/22 11:54 AW (Rec: 06/04/22 12:57 AW [id number]) PT-Bed Mobility Assessment Supine to Sit Supine to Sit Standby Assistance,Contact Guard Assistance,1 Person Assistance,Bedrails Scooting Scooting to Edge of Bed Contact Guard Assistance PT-Transfer Assessment Sit to and From Stand Sit to and from Stand Moderate Assistance,2 Person Assistance,Use of Upper Extremities Equipment Transfer Assistive Device Gait Belt,Front Wheeled Walker Orthotic/Prosthetic Devices or Brace: No Transfers Transfer Destination Chair Transfer Technique Stand Step Pivot Transfer Ability Level of Assist Minimal Assistance,Moderate Assistance,Maximum Assistance, 2 Person Assistance Comments Mobility Comments Pt was lying in bed working with OT as PT arrived. CGA for bed mobility. Mod A x 2 for sit to stand and CAHTO guidance for RUE to walker. Pt stood and ambulated with FWW mod/max A x 2 12 feet to the window seat. Max cues and tactile facilitation for knee and hip extension. Max A x 2 to sit safely on the window seat. Cues and assist to widen pt's MARLA in sitting. Pt then agreed to stand and walk across the room toward chair set up near closet. Max A x 1 to stand and mod/max A x 2 to ambulate 18 feet with FWW. Pt stood and walked to the sink mod/max A x 2 with FWW. Pt stood ~4 minutes and used mirror for visual feedback to correct lateral lean while hands were placed and R hand supported on the countertop. Pt then sat on the chair and continued to work on midline awareness while doing grooming tasks. Pt stood again and walked another 18 feet with FWW max A x 1 and chair follow. Pt complained heavily of tooth pain and made remarks about ending his life. I could just throw a sheet over that beam there and be done with it. RN was informed. Pt was left in the chair with call light and tray table with lunch in front of him. Chair alarm was armed . Gait Assessment Gait Gait Assistance Required: Minimum Assistance,Moderate Assistance,Maximum Assistance, 2 Person Assist Distance (Feet) 18 Assistive Devices Assistive Device Gait Belt,Front Wheeled Walker Orthotic/Prosthetic Devices or Brace: No Gait Deviations General Gait Pattern Ataxic,Decreased Stride Length ,Decreased Feet Clearance, Flexed Trunk,Lateral Trunk Lean,Narrow Based Gait,Step-to Gait Factors Limiting Gait Function Factors Limiting Gait Function Decreased Activity Tolerance, Decreased Strength,Difficulty Following Directions, Incoordination,Pain,Poor Balance,Poor Safety Awareness Comments Gait Comments 12 feet, 18 feet, 18 feet. See mobility comments for details . PT-Balance Assessment Sitting Balance and Reactions Static Sitting Balance Ability Fair Dynamic Sitting Balance Ability Fair Standing Balance and Reactions Static Standing Balance Ability Poor Dynamic Standing Balance Ability Poor Device Used FWW M5 PT-IP Objective Assessments Start: 05/07/22 09:18 Freq: NEEDED Status: Active Protocol: Document 05/07/22 11:05 AW (Rec: 05/07/22 13:30 AW [id number]) Orientation Orientation/Cognition Level of Alertness Lethargic Orientation Name,Month,Place Safety Awareness Decreased Safety Awareness Gross Range of Motion Lower Extremity ROM Assessment Within Functional Limits Strength Lower Extremity Strength Assessment Bilaterally Impaired Comments Strength Comments R grossly 3-/5. L grossly 3+/5 Coordination Assessment Gross Coordination Gross Coordination Impaired Assessment Finger to Nose Test Activity Impossible Foot Tapping Test Minimal Impairment Coordination Comments Pt limited by BUE weakness with UE coordination testing. Sensation Assessment Sensation Gross Sensation WNL Muscle Tone Muscle Tone WNL Yes M6 PT-IP Treatment Start: 05/07/22 09:18 Freq: NEEDED Status: Active Protocol: Document 06/04/22 11:54 AW (Rec: 06/04/22 12:57 AW [id number]) Physical Therapy Treatment Education Education Provided Safety M7 PT-IP Assessment and Plan Start: 05/07/22 09:18 Freq: NEEDED Status: Active Protocol: Document 06/04/22 11:54 AW (Rec: 06/04/22 12:57 AW [id number]) PT Summary Assessment and Plan Summary Progress Towards Goals Slow Progress due to Medical Issues,Slow Progress due to Activity Tolerance Assessment Summary Pt is highly motivated and spirited today but was limited by pain. He ambulated 18 feet x 2 and stood at the sink with UE support on the counter for ~4 minutes with max cues and assist. Pt would benefit from continued skilled therapy , and will require SNF and shelter care placement to improve functional mobility and strength. Goals Bed Mobility Goal Contact Guard Assistance Transfer Goal Standby Assistance,Front Wheeled Walker Gait Goal Standby Assistance,Front Wheel Walker Gait Distance 150 Other Goals up/down 4 steps with rails SBA - improve transfers and gait to SBA with 4WW Days to Meet Goals 10 Frequency of Treatment Frequency Of Treatment Once a Day Treatment Plan Physical Therapy Treatment Plan Bed Mobility Training,Transfer Training,Gait Training, Therapeutic Exercise,Balance Retraining,Discharge Planning, Hot or Cold Pack,Neuromuscular Re-ed,Coordination Retraining Other Recommendations and Next Treatment bed mob, sitting balance Focus activities, standing, transfers, gait using FWW chair follow. Consider using mirror for midline orientation . Precautions Other Precautions seizure precautions; falls risk Recommendations To Nursing Amount of Assist Needed 2 Person Assist Discharge Recommendations PT Discharge Recommendations SNF Rehab,LTAC Equipment Needed for Home Before FWW Discharge Transportation Needs at Discharge Wheelchair/Cabulance,Stretcher /Ambulance
--- NOTE | 2022-06-04 11:54 | OT.IP.TRT ---
Current Diagnoses Depression, unspecified (05/01/22) Cerebral infarction, unspecified (05/01/22) Spinal stenosis, cervical region (05/01/22) Occupational Therapy Treatment Note M2 OT-IP Current Condition Start: 05/07/22 12:13 Freq: Status: Active Protocol: Document 05/07/22 12:13 CGR (Rec: 05/07/22 12:37 CGR [id number]) Occupational Therapy Current Condition Current Condition Evaluation Date 05/07/22 Treatment Diagnosis generalized weakness, hx IV drug use, R CVA 2016 Diagnosis Onset Date 05/01/22 M3 OT- IP Subjective and Pain Start: 05/07/22 12:13 Freq: Status: Active Protocol: Document 06/04/22 11:20 [facility] (Rec: 06/04/22 12:45 [facility] [id number]) OT- Subjective Occupational Therapy Visit Type Type Treatment Note Visit Start Time 11:20 Visit Stop Time 11:54 Total Visit Minutes 34 Occupational Therapy Visit Comments Patient Comments Pt agreed to get up. Patient/Caregiver Goals To go home and see his dog. OT Pain Assessment Pain When Pain Assessed At Rest Pain Present Pain Present Pain Reported Location Neck Intensity 20 Scale Used Numeric (0 - 10) Pain Behaviors Calling Out,Facial Grimacing M4 OT- IP ADL's Start: 05/07/22 12:13 Freq: Status: Active Protocol: Document 06/04/22 11:20 [facility] (Rec: 06/04/22 12:45 [facility] [id number]) OT [id number] Comments OT Self-Feeding Comments Not at meal time. OT ADL-Grooming General Evaluation Grooming Ability Maximum Assistance Areas Needing Assistance Combing/Brushing Hair Comments OT Grooming Comments sitting on the recilner OT ADL-Oral Care General Eval Oral Care Ability Standby Assistance Areas of Assistance Retrieving/Set-Up of Items Comments Oral Care Comments Pt able to use a swab to swab his mouth out after set-up. OT ADL-Dressing General Eval Lower Body Dressing Ability Total Assistance Areas Needing Assistance Underpants/Brief OT ADL-Toileting General Evaluation Toileting Ability Total Assistance Comments OT Toileting Comments Total assist to hold the urinal in place and for hygiene while in bed. OT ADL-Bathing Comments OT Bathing Comments not performed M5 OT- IP IADL's Start: 05/07/22 12:13 Freq: Status: Active Protocol: Document 05/07/22 12:13 CGR (Rec: 05/07/22 12:37 CGR [id number]) OT-Instrumental Activities of Daily Living Deficits IADL Deficits Identified Deficits Home Safety Awareness Awareness of Need for Assistance at Home Decreased Awareness Ability to Problem Solve Emergency Unable to Problem Solve Situations Medication Management Medication Management Comments Concerns about pt's ability to perform consistently Money Management Money Management Comments Concerns about pt's ability to perform consistently Meal Preparation Meal Preparation Comments Concerns about pt's ability to perform consistently Crop Duster Helper Crop Duster Helper Comments Concerns about pt's ability to perform consistently M6 OT- IP Functional Cognition Start: 05/07/22 12:13 Freq: Status: Active Protocol: Document 06/04/22 11:20 [facility] (Rec: 06/04/22 12:45 [facility] [id number]) Cognitive Factors Limiting Selfcare Function Cognitive Ability Level of Alertness Alert Cognitive Comments Cognitive Assessment Comments Pt stated suicidal ideation and able to let pt's nurse know. Pt able to states his needs and wants. Pt still having difficulty to initiate his movements and multi-task for his ADl and balance needs while seated. M7 OT- IP Mobility and Balance Start: 05/07/22 12:13 Freq: Status: Active Protocol: Document 06/04/22 11:20 [facility] (Rec: 06/04/22 12:45 [facility] [id number]) OT-Transfer Assessment Sit to and From Stand Sit to and from Stand Moderate Assistance,Maximum Assistance,1 Person Assistance ,2 Person Assistance Transfers Transfer Ability Moderate Assistance,2 Person Assistance Technique Transfer Destination Bed,Chair Transfer Technique Stand Step Pivot Devices Transfer Assistive Devices Gait Belt,Front Wheeled Walker Comments Mobility Comments Pt able to get himself from supine to sitting on the edge of the bed with heavy use of grab bars. Pt needing close SBA as very unsteady with his movements. OT- Gait Assessment Comments Gait Ability Comments Pt unsteady on his feet and needing cues to keep his feet apart and needing from MAX AX 1 to MOD A x2 with FWW. OT- Balance Assessment Sitting Balance and Reactions Static Sitting Balance Ability Fair Dynamic Sitting Balance Ability Fair Standing Balance and Reactions Static Standing Balance Ability Poor Comments Other Balance Tests/Deviations/Treatment Able to use the mirror at the : sink to assist pt to see to help try to self correct his posture. Pt having difficulty to correct himself. M8 OT- IP Objective Assessments Start: 05/07/22 12:13 Freq: Status: Active Protocol: Document 05/07/22 12:13 CGR (Rec: 05/07/22 12:37 CGR [id number]) OT Gross Range of Motion Upper Extremity Range of Motion ROM Impairments AAROM WFL OT Strength Upper Extremity Strength Assessment Bilaterally Impaired Comments Strength Comments R weaker than L R grossly 2/5 L grossly 2+ to 3-/5 OT- Coordination Assessment Upper Extremity Finger to Nose Test Bilateral UE Impaired Finger Tapping Test Bilateral UE Impaired OT-Muscle Tone Assessment Muscle Tone WNL Yes OT Sensation Assessment Edema Edema Absent M9 OT- IP Assessment and Plan Start: 05/07/22 12:13 Freq: Status: Active Protocol: Document 06/04/22 11:20 CCC (Rec: 06/04/22 12:45 CCC [id number]) OT Summary Assessment and Plan Potential Rehabilitation Potential Fair Analytic Complexity at Evaluation High Summary OT Impairments Pain,Strength,Balance, Coordination,Functional Cognition,Functional Mobility, Self-Feeding,Grooming,Dressing ,Toileting,Bathing,Toilet Transfers,Shower Transfers, Activity Tolerance Progress Towards Goals Slow Progress due to Pain,Slow Progress due to Medical Issues,Slow Progress due to Activity Tolerance Assessment Summary Pt states in pain and a bit more unsteady on his feet today. Pt is motivated to get better. Goals Self-Feeding Goal Standby Assistance Grooming Goal Minimal Assistance Dressing Goal Moderate Assistance Toileting Goal Moderate Assistance Bathing Goal Moderate Assistance Toilet Transfer Goal Minimal Assistance Shower Transfer Goal Minimal Assistance Days to Meet Goals 41 Frequency of Treatment Frequency Of Treatment Once a Day Treatment Plan OT Treatment Plan ADL Training,Functional Cognition Training,Functional Mobility,Neuromuscular Re- education,Therapeutic Exercises,Patient/Family Education,Discharge Planning Other Treatment Recommendations and Next continue with functional Treatment Focus mobility, LB dressing, ADLs at sink Discharge Recommendations OT Discharge Recommendations SNF Rehab,LTAC Transportation Needs at Discharge Wheelchair/Cabulance
[2022-06-04 11:59] VITALS: BP 143/82; PULSE 76; RESP 17; TEMP 36.2; O2SAT 99
--- NOTE | 2022-06-04 14:36 | PC.NURSE ---
Pt AOx4, VS stable. He expressed on two separate occasions that he wanted to harm himself. Pt spoke to OT and said he wanted to hang himself using his bed sheet. In another conversation today he said to someone on the dietary staff that he was going to pretend that he was cold, get a sheet and strangle himself. The employee notified me and then I discussed this with Dr. Gimenez and Prasanna (coordinator). Dr. Gimenez indicated that we needed a sitter for the patient. Cords and hazardous items were removed from the room. The patient emphasized that this was a joke he kept telling people and he wasn't going to hurt himself. He mentioned that he was just in pain because of this tooth.
--- NOTE | 2022-06-04 15:36 | PM.PN.1 ---
Subjective Subjective Date Patient Seen: 06/04/22 Interval history: 62 y/o male admitted following a stroke. Patient made comments to staff earlier regarding self harm. He complains of tooth pain and reports he is very uncomfortable. He later recanted and said he was just kidding. Exam Vital Signs (past 8 hours): - 06/04/22 11:59 Temperature 97.2 F L Pulse Rate 76 Respiratory Rate 17 Blood Pressure 143/82 H Pulse Oximetry 99 Oxygen Flow Rate 0 Oxygen Delivery Method Room Air Oxygen Flow Rate 0 Narrative Exam Narrative: ill appearing male lying in bed Resp Other: Lungs: clear to auscultation Cardio Other: CV: RRR nl Sl S2 GI Other: Abd: soft/ nontender/ nondistended Extrem Other: no edema Objective Labs Result Diagrams: 05/23/22 21:21 05/26/22 11:03 PFS Medical History Asthma Chronic back pain greater than 3 months duration Closed intertrochanteric fracture of left femur Depression Drug abuse, IV History of CVA (cerebrovascular accident) Surgical History History of hernia repair Family History Father Unknown family medical history Mother No problems noted. Grandmother Myocardial infarction Grandfather No problems noted. Social History household members: friend(s) Smoking Status: Current some day smoker alcohol intake: current Assessment & Plan Assessment & Plan narrative: 1Weakness Patient appears to be chronically debilitated.? No evidence of new stroke on 2 different brain MRIs.? C-spine MRI did reveal some chronic pathology but no acute cord compression.? Orthopedic surgery consulted and recommended outpatient follow-up with Neurosurgery.? Acetylcholine antibodies and?DIXIE negative.? Remains on cymbalta since 05/18.? Gabapentin initiated 05/21.? Continues to have pain which the norco helps but wears off after 3 hours. Change norco to q3h instead of q4h. -also started on gabapentin, increased further to 400 mg TID. -will start on scheduled ativan for continued spasticity. -recommend outpatient neurology 2. Altered mental status / metabolic encephalopathy, improved. Patient appears to be at baseline.? No evidence for withdrawal presently.? He is working with therapies on a daily basis and is slowly improving. Depression/?Suicidal ideation Will consult Psychiatry 3. Hypertension Presently normotensive, not on therapy. 4. Hyperlipidemia Continue atorvastatin 5. Polysubstance dependence Although patient was intoxicated on admission, he has been?hospitalized for over 25 days.? There was evident concern early on that people were bringing controlled substances into the hospital.? However,? he has had restricted visitation since that time. 6.? Prior stroke with residual right-sided weakness Patient remains on atorvastatin 40 mg, aspirin 81 mg. 7. Microcytic anemia MCV is up to 71.? Hemoglobin is 11.? 8. Hepatitis C Hep C ab positive.? Hep C RNA >1 million.? Will need outpatient f/u. 9. Dental pain ?- topical agents as needed for now. ?- consider dental consult depending on continued pain. -will start oral pain medications Time Spent With Patient Critical Care time: I spent a total of [] minutes of critical care time on this patient's care today; this time is exclusive of procedural time. Quality VTE Deep Vein Thrombosis/Pulmonary Embolism Present on Admission: No
[2022-06-04 18:00] VITALS: BP 116/66; PULSE 76; RESP 18; TEMP 36; O2SAT 96
[2022-06-04] MEDS: HYDROCODONE/ACET 10/325 TABLET 1 TAB PO (20:44)
[2022-06-04 20:46] VITALS: BP 139/67; PULSE 100; RESP 20; TEMP 36.3; O2SAT 99
[2022-06-04] MEDS: METOCLOPRAMIDE 10 MG/2 ML INJ IV (21:03)
[2022-06-05 03:00] VITALS: BP 126/74; PULSE 86; RESP 17; TEMP 36.6; O2SAT 97
[2022-06-05] MEDS: HYDROCODONE/ACET 10/325 TABLET 1 TAB PO ×4 (04:04→19:33)
--- NOTE | 2022-06-05 06:19 | PC.NURSE ---
Pt suicide risk screening completed and does not meet low risk criteria since start of shift. Pt safety checks q15m d/c and suicide risk screening to be completed q2h. Pt was calm, cooperative, and verbalized desire to continue pursuing sobriety.
[2022-06-05] MEDS: NICOTINE 7 MG PATCH TOP (08:06)
[2022-06-05] MEDS: PANTOPRAZOLE DR 40 MG TABLET PO ×2 (08:08→21:28)
[2022-06-05] MEDS: ENOXAPARIN 40 MG/0.4 ML SYRINGE SUBCUT (08:09)
[2022-06-05] MEDS: GABAPENTIN 400 MG CAPSULE PO ×3 (08:09→21:27)
[2022-06-05] MEDS: FOLIC ACID 1 MG TABLET PO (08:09)
[2022-06-05] MEDS: DOCUSATE 100 MG CAPSULE PO ×2 (08:09→21:27)
[2022-06-05] MEDS: DULOXETINE 30 MG CAPSULE PO (08:09)
[2022-06-05] MEDS: SENNOSIDES 8.6 MG TABLET PO ×2 (08:09→21:27)
[2022-06-05] MEDS: MULTIVITAMIN 1 TABLET 1 TAB PO (08:09)
[2022-06-05] MEDS: LORazepam 0.5 MG TABLET PO ×2 (08:20→21:26)
[2022-06-05 09:59] VITALS: BP 124/79; PULSE 72; RESP 17; TEMP 36.6; O2SAT 97
--- NOTE | 2022-06-05 10:51 | DI.CT.S_ITS ---
PROCEDURE: CT FACIAL BONES W CON INDICATIONS: lower frontal tooth pain TECHNIQUE: After the administration of intravenous contrast, 2.5 mm axial sections acquired from the mid-neck to the frontal sinuses, with coronal and sagittal reformats. For radiation dose reduction, the following was used: automated exposure control, adjustment of mA and/or kV according to patient size. COMPARISON: None. FINDINGS: Tiny residual roots of the lateral mandibular incisors and canines with adjacent periapical lucency. No lytic or destructive lesion in the mandible. No maxillary teeth present. Remaining osseous structures intact without suspicious or destructive lesion. No acute soft tissue finding. IMPRESSION: Periapical lucencies associated with the remaining small mandibular tooth roots. Dictated by: Ash Bertrand M.D. on 06/05/2022 at 11:43 Approved by: Ash Bertrand M.D. on 06/05/2022 at 11:45
--- NOTE | 2022-06-05 11:09 | P.PN_ITS ---
Subjective Subjective Date Patient Seen: 06/05/22 Interval history: Yesterday had some possible SI, low risk after nursing and safety evaluation. Psychiatry consult pending. Patient denies ideation today, continues to have dental pain, there is some mild erythema on exam today and a very tender remnant of his bottom front tooth, difficult to discern which tooth this was due to his poor dentition. Exam Vital Signs (past 8 hours): - 06/05/22 09:59 Temperature 97.8 F Pulse Rate 72 Respiratory Rate 17 Blood Pressure 124/79 Pulse Oximetry 97 Oxygen Flow Rate 0 Oxygen Delivery Method Room Air Oxygen Flow Rate 0 Narrative Exam Narrative: GEN: Middle-aged male, very thin, temporal wasting, Alert and oriented x 3, NAD HEENT:NC, Face symmetric. Minimal dentition left, there is a small bit of erythema and severe tenderness under front left toot remnant, small amount of tooth protruding through gum. CHEST: Respiratory excursions symmetric, CTAB CV: RRR, no M/R/G ABD: Soft, NT/ND, BT present in all 4 quadrants, no organomegaly or masses EXTR: warm, well perfused, no C/C/E, right upper extremity remains weak, poor mobility SKIN: warm and dry, no rash NEURO: Alert and oriented x 3. Objective Labs Result Diagrams: 05/23/22 21:21 05/26/22 11:03 [facility], [facility] Medical History Asthma Chronic back pain greater than 3 months duration Closed intertrochanteric fracture of left femur Depression Drug abuse, IV History of CVA (cerebrovascular accident) Surgical History History of hernia repair Family History Father Unknown family medical history Mother No problems noted. Grandmother Myocardial infarction Grandfather No problems noted. Social History household members: friend(s) Smoking Status: Current some day smoker alcohol intake: current Assessment & Plan Assessment & Plan narrative: 1Weakness Patient appears to be chronically debilitated.? No evidence of new stroke on 2 different brain MRIs.? C-spine MRI did reveal some chronic pathology but no acute cord compression.? Orthopedic surgery consulted and recommended outpatient follow-up with Neurosurgery.? Acetylcholine antibodies and?DIXIE negative.? Remains on cymbalta since 05/18.? Gabapentin initiated 05/21.? Continues to have pain which the norco helps but wears off after 3 hours. Change norco to q3h instead of q4h. -also started on gabapentin, increased further to 400 mg TID. Start fentanyl patch today to see if baseline pain can be improved. -will start on scheduled ativan for continued spasticity. -recommend outpatient neurology 2. Altered mental status / metabolic encephalopathy, improved. Patient appears to be at baseline.? No evidence for withdrawal presently.? He is working with therapies on a daily basis and is slowly improving. Depression/?Suicidal ideation psych consultation pending 3. Hypertension Presently normotensive, not on therapy. 4. Hyperlipidemia Continue atorvastatin 5. Polysubstance dependence Although patient was intoxicated on admission, he has been?hospitalized for over 25 days.? There was evident concern early on that people were bringing controlled substances into the hospital.? However,? he has had restricted visitation since that time. 6.? Prior stroke with residual right-sided weakness Patient remains on atorvastatin 40 mg, aspirin 81 mg. 7. Microcytic anemia MCV is up to 71.? Hemoglobin is 11.? 8. Hepatitis C Hep C ab positive.? Hep C RNA >1 million.? Will need outpatient f/u. 9. Dental pain ?- ibuprofen prn, no great oral medications available on formulary (orajel for example). - given continued pain and severe tenderness, check a facial CT. Consider FS consultation with Dr. Vega. Time Spent With Patient Critical Care time: I spent a total of [] minutes of critical care time on this patient's care today; this time is exclusive of procedural time. Quality VTE Deep Vein Thrombosis/Pulmonary Embolism Present on Admission: No
[2022-06-05] MEDS: fentaNYL 12 MCG/PATCH TOP (11:22)
--- NOTE | 2022-06-05 11:55 | PT.IPTN ---
Current Diagnoses Depression, unspecified (05/01/22) Cerebral infarction, unspecified (05/01/22) Spinal stenosis, cervical region (05/01/22) Physical Therapy Treatment Note M2 PT-IP Current Condition Start: 05/07/22 09:18 Freq: NEEDED Status: Active Protocol: Document 05/18/22 13:22 SP (Rec: 05/18/22 16:05 SP [id number]) Physical Therapy Current Condition Current Condition Evaluation Date 05/07/22 Treatment Diagnosis metabolic encephalopathy; polysubstance withdrawal; impaired mobility Onset Date 04/30/22 M3 PT-IP Subjective Start: 05/07/22 09:18 Freq: NEEDED Status: Active Protocol: Document 06/05/22 11:22 KS (Rec: 06/05/22 12:18 KS [id number]) Subjective Physical Therapy Visit Type Type Treatment Note Visit Start Time 11:22 Visit Stop Time 11:55 Total Visit Minutes 33 Notes co-treat w/ OT. Number of [employer] LO[employer] OPERATOR Visits 1 Therapy Pain Assessment Pain When Pain Assessed At Rest Pain Present Pain Present Pain Reported Location teeth Scale Used not quantified M4 PT-IP Mobility and Gait Start: 05/07/22 09:18 Freq: NEEDED Status: Active Protocol: Document 06/05/22 11:22 KS (Rec: 06/05/22 12:18 KS [id number]) PT-Bed Mobility Assessment Scooting Scooting to Edge of Bed Contact Guard Assistance PT-Transfer Assessment Sit to and From Stand Sit to and from Stand Moderate Assistance,2 Person Assistance,Use of Upper Extremities Equipment Transfer Assistive Device Gait Belt,Front Wheeled Walker Orthotic/Prosthetic Devices or Brace: No Transfers Transfer Destination Chair,Wheelchair Transfer Technique Pt ambilated w/ platform walker Transfer Ability Level of Assist Moderate Assistance,2 Person Assistance,Use of Upper Extremities Comments Mobility Comments Pt in chair upon arrival and agreeable to ambulate. CGA and cues to slowly scoot forward in chair and space feet apart prior to standing. Mod A x2 and assist w/ RUE to hold FWW for sit<>stand. Pt then ambulated ~25 ft w/ FWW Mod A x2 and max cues for upright posture and slow steps. After two bouts of 25 ft, added platform to FWW to facilitate upright posture d/t pts weak RUE. Pt ambulated 3 more bouts f 20-30 ft w/ Mod A x2. Platform FWW was helpful in assisting pts posture, but he still required 2PA and w/c follow. Pt returned to room and left in chair w/ OT. Gait Assessment Gait Gait Assistance Required: Moderate Assistance,Maximum Assistance,2 Person Assist Distance (Feet) 30 Assistive Devices Assistive Device Gait Belt,Front Wheeled Walker Orthotic/Prosthetic Devices or Brace: No Gait Deviations General Gait Pattern Ataxic,Decreased Stride Length ,Decreased Feet Clearance, Flexed Trunk,Lateral Trunk Lean,Narrow Based Gait,Step-to Gait Factors Limiting Gait Function Factors Limiting Gait Function Decreased Activity Tolerance, Decreased Strength,Difficulty Following Directions, Incoordination,Pain,Poor Balance,Poor Safety Awareness Comments Gait Comments 25 ft, 25 ft, 20 ft, 20 ft, 30 ft. PT-Balance Assessment Sitting Balance and Reactions Static Sitting Balance Ability Fair Dynamic Sitting Balance Ability Fair Standing Balance and Reactions Static Standing Balance Ability Poor Dynamic Standing Balance Ability Poor Device Used FWW M5 PT-IP Objective Assessments Start: 05/07/22 09:18 Freq: NEEDED Status: Active Protocol: Document 05/07/22 11:05 AW (Rec: 05/07/22 13:30 AW [id number]) Orientation Orientation/Cognition Level of Alertness Lethargic Orientation Name,Month,Place Safety Awareness Decreased Safety Awareness Gross Range of Motion Lower Extremity ROM Assessment Within Functional Limits Strength Lower Extremity Strength Assessment Bilaterally Impaired Comments Strength Comments R grossly 3-/5. L grossly 3+/5 Coordination Assessment Gross Coordination Gross Coordination Impaired Assessment Finger to Nose Test Activity Impossible Foot Tapping Test Minimal Impairment Coordination Comments Pt limited by BUE weakness with UE coordination testing. Sensation Assessment Sensation Gross Sensation WNL Muscle Tone Muscle Tone WNL Yes M6 PT-IP Treatment Start: 05/07/22 09:18 Freq: NEEDED Status: Active Protocol: Document 06/05/22 11:22 KS (Rec: 06/05/22 12:18 KS [id number]) Physical Therapy Treatment Education Education Provided Safety M7 PT-IP Assessment and Plan Start: 05/07/22 09:18 Freq: NEEDED Status: Active Protocol: Document 06/05/22 11:22 KS (Rec: 06/05/22 12:18 KS [id number]) PT Summary Assessment and Plan Potential Rehabilitation Potential Fair Status of Condition at Evaluation Evolving Summary Impairments Strength,Balance,Coordination, Cognition,Bed Mobility, Transfers,Gait Progress Towards Goals Slow Progress due to Medical Issues,Slow Progress due to Activity Tolerance Assessment Summary Pt continues to be highly motivated but is not fully aware of how much assistance he is being provided by 2 people during ambulation. He requires 2PA and w/c follow at all times as well as max cues . Trialed gait w/ PFWW today and pts posture was improved. Will continue to progress w/ PFWW. Pt would benefit from continued skilled therapy, and will require SNF and senior care care placement to improve functional mobility and strength. Goals Bed Mobility Goal Contact Guard Assistance Transfer Goal Standby Assistance,Front Wheeled Walker Gait Goal Standby Assistance,Front Wheel Walker Gait Distance 150 Other Goals up/down 4 steps with rails SBA - improve transfers and gait to SBA with 4WW Days to Meet Goals 10 Frequency of Treatment Frequency Of Treatment Once a Day Treatment Plan Physical Therapy Treatment Plan Bed Mobility Training,Transfer Training,Gait Training, Therapeutic Exercise,Balance Retraining,Discharge Planning, Hot or Cold Pack,Neuromuscular Re-ed,Coordination Retraining Other Recommendations and Next Treatment bed mob, sitting balance Focus activities, standing, transfers, gait using FWW chair follow. Consider using mirror for midline orientation . Precautions Other Precautions seizure precautions; falls risk Recommendations To Nursing Amount of Assist Needed 2 Person Assist Discharge Recommendations PT Discharge Recommendations SNF Rehab,LTAC Equipment Needed for Home Before FWW Discharge Transportation Needs at Discharge Wheelchair/Cabulance,Stretcher /Ambulance
[2022-06-05 12:00] VITALS: BP 131/73; PULSE 79; RESP 17; TEMP 36.7; O2SAT 95
--- NOTE | 2022-06-05 12:05 | OT.IP.TRT ---
Current Diagnoses Depression, unspecified (05/01/22) Cerebral infarction, unspecified (05/01/22) Spinal stenosis, cervical region (05/01/22) Occupational Therapy Treatment Note M2 OT-IP Current Condition Start: 05/07/22 12:13 Freq: Status: Active Protocol: Document 05/07/22 12:13 CGR (Rec: 05/07/22 12:37 CGR [id number]) Occupational Therapy Current Condition Current Condition Evaluation Date 05/07/22 Treatment Diagnosis generalized weakness, hx IV drug use, R CVA 2015 Diagnosis Onset Date 05/01/22 M3 OT- IP Subjective and Pain Start: 05/07/22 12:13 Freq: Status: Active Protocol: Document 06/05/22 13:09 CCC (Rec: 06/05/22 13:19 CCC [id number]) OT- Subjective Occupational Therapy Visit Type Type Treatment Note Visit Start Time 11:22 Visit Stop Time 12:05 Total Visit Minutes 43 Occupational Therapy Visit Comments Patient Comments Pt wanting to get up and walk. Patient/Caregiver Goals To get better. OT Pain Assessment Pain When Pain Assessed At Rest Pain Present Pain Present Pain Reported M4 OT- IP ADL's Start: 05/07/22 12:13 Freq: Status: Active Protocol: Document 06/05/22 13:09 CCC (Rec: 06/05/22 13:19 CCC [id number]) OT [id number] Comments OT Self-Feeding Comments Assist for set-up. OT ADL-Grooming General Evaluation Grooming Ability Total Assistance Areas Needing Assistance Retrieving/Set-up of Grooming Items,Combing/Brushing Hair Comments OT Grooming Comments Assist for set-up and total assist to help put his hair up in a bun. OT ADL-Oral Care General Eval Oral Care Ability Standby Assistance Areas of Assistance Retrieving/Set-Up of Items Comments Oral Care Comments set-up for toothbrush with tooth paste on M5 OT- IP IADL's Start: 05/07/22 12:13 Freq: Status: Active Protocol: Document 05/07/22 12:13 CGR (Rec: 05/07/22 12:37 CGR [id number]) OT-Instrumental Activities of Daily Living Deficits IADL Deficits Identified Deficits Home Safety Awareness Awareness of Need for Assistance at Home Decreased Awareness Ability to Problem Solve Emergency Unable to Problem Solve Situations Medication Management Medication Management Comments Concerns about pt's ability to perform consistently Money Management Money Management Comments Concerns about pt's ability to perform consistently Meal Preparation Meal Preparation Comments Concerns about pt's ability to perform consistently Children'S Attendant Children'S Attendant Comments Concerns about pt's ability to perform consistently M6 OT- IP Functional Cognition Start: 05/07/22 12:13 Freq: Status: Active Protocol: Document 06/05/22 13:09 [facility] (Rec: 06/05/22 13:19 [facility] [id number]) Cognitive Factors Limiting Selfcare Function Cognitive Comments Cognitive Assessment Comments Pt states does not recall working with OT yesterday. Pt is insistent for his care and at times very impulsive and poor safety awareness and is a high fall risk. Able to reiterate with the nurse that pt is still transfer only as pt is very inconsistent on his feet and a high fall risk. Pt highly gets distracted. M7 OT- IP Mobility and Balance Start: 05/07/22 12:13 Freq: Status: Active Protocol: Document 06/05/22 13:09 [facility] (Rec: 06/05/22 13:19 [facility] [id number]) OT-Transfer Assessment Sit to and From Stand Sit to and from Stand Moderate Assistance,2 Person Assistance Transfers Transfer Ability Moderate Assistance,2 Person Assistance Technique Transfer Destination Bed,Chair Transfer Technique Stand Step Pivot Devices Transfer Assistive Devices Gait Belt,Front Wheeled Walker Comments Mobility Comments MODA x 2 to stand to FWW and then able to try platform walker on the right side due to pt having difficulty to hold his hand on the FWW handle. Pt needing assist for cues for feet placement and to stand upright, assist for balance, guiding the FWW, and keep focused as pt easily gets distracted. OT- Balance Assessment Sitting Balance and Reactions Static Sitting Balance Ability Fair Dynamic Sitting Balance Ability Fair Standing Balance and Reactions Static Standing Balance Ability Poor Comments Other Balance Tests/Deviations/Treatment Attempted to have pt work on : his standing balance in front of the mirror and pt refusing as not wanting to look at himself in the mirror. Educated the importance on midline and trunk control in that the mirror is feed back for him to learn to help control and see how to correct his posture. M8 OT- IP Objective Assessments Start: 05/07/22 12:13 Freq: Status: Active Protocol: Document 05/07/22 12:13 CGR (Rec: 05/07/22 12:37 CGR [id number]) OT Gross Range of Motion Upper Extremity Range of Motion ROM Impairments AAROM WFL OT Strength Upper Extremity Strength Assessment Bilaterally Impaired Comments Strength Comments R weaker than L R grossly 2/5 L grossly 2+ to 3-/5 OT- Coordination Assessment Upper Extremity Finger to Nose Test Bilateral UE Impaired Finger Tapping Test Bilateral UE Impaired OT-Muscle Tone Assessment Muscle Tone WNL Yes OT Sensation Assessment Edema Edema Absent M9 OT- IP Assessment and Plan Start: 05/07/22 12:13 Freq: Status: Active Protocol: Document 06/05/22 13:09 [facility] (Rec: 06/05/22 13:19 [facility] [id number]) OT Summary Assessment and Plan Potential Rehabilitation Potential Fair Analytic Complexity at Evaluation High Summary OT Impairments Pain,Strength,Balance, Coordination,Functional Cognition,Functional Mobility, Self-Feeding,Grooming,Dressing ,Toileting,Bathing,Toilet Transfers,Shower Transfers, Activity Tolerance Progress Towards Goals Progressing Toward Goals,Slow Progress due to Pain,Slow Progress due to Medical Issues Assessment Summary Pt able to tolerate walking more today and able to get into the hallway with extensive skilled assist. Pt still highly distracted at times, and needs constant reminders to stay on task and focus. Goals Self-Feeding Goal Standby Assistance Grooming Goal Minimal Assistance Dressing Goal Moderate Assistance Toileting Goal Moderate Assistance Bathing Goal Moderate Assistance Toilet Transfer Goal Minimal Assistance Shower Transfer Goal Minimal Assistance Days to Meet Goals 41 Frequency of Treatment Frequency Of Treatment Once a Day Treatment Plan OT Treatment Plan ADL Training,Functional Cognition Training,Functional Mobility,Neuromuscular Re- education,Therapeutic Exercises,Patient/Family Education,Discharge Planning Discharge Recommendations OT Discharge Recommendations SNF Rehab,LTAC Transportation Needs at Discharge Wheelchair/Cabulance
--- NOTE | 2022-06-05 14:32 | P.PN_ITS ---
Subjective Subjective Date Patient Seen: 06/05/22 Time Patient Seen: 14:10 Interval history: Reason for visit: Dr. Gimenez requested follow-up after the patient voiced possible suicidal ideation. CLINICAL SUMMARY GUILLERMINA SZYMANSKI is a 62-year-old male with a very long history of severe polysubstance dependence in addition to prior CVA, right-sided hemiparesis, hypertension, hyperlipidemia, other significant medical problems.? The patient endorses significant symptoms of depression as well.? CURRENT PSYCHOTROPIC MEDICATIONS * Duloxetine 30 mg daily CHIEF COMPLAINT I am doing pretty well. INTERIM HISTORY * Previously, * The patient was admitted after presenting to the emergency department several weeks ago with increasing weakness, multiple falls, and neurologic symptoms. It was suspected that the patient had TIA versus stroke and was admitted for CVA workup. * CVA has been negative, but severe weakness and nutrition, likely due to chronic drug use (heroin) was noted. * We were consulted given the patient's previous history of depression and treatment with sertraline. * We confirmed diagnosis of depression and recommended continued treatment with antidepressant medication. * Today, * The patient appears to be significantly improved in terms of nutritional status in overall health and well-being since our initial consult, but he continues to be quite debilitated, weak, and bed ridden. * Mood: Reports generally improved mood overall. Less depressed, more motivated, more animated, interested, and motivated to get better. * Safety: Patient denies any suicidal or homicidal ideation, intent, or plan. He notes that when he voiced suicidal ideation it was in a rather sarcastic and dramatic manner as he has significant frontal mandibular pain due to likely abscesses that are causing him significant discomfort. * Side Effects: None noted * Social: * Until his admission, the patient was living alone in apparently school at [facility]. Exam Vital Signs (past 8 hours): - 06/05/22 09:59 06/05/22 12:00 Temperature 97.8 F 98.0 F Pulse Rate 72 79 Respiratory Rate 17 17 Blood Pressure 124/79 131/73 Pulse Oximetry 97 95 Oxygen Flow Rate 0 0 Oxygen Delivery Method Room Air Oxygen Flow Rate 0 Narrative Exam Narrative: MENTAL STATUS EXAM * Appearance:? The patient is a short-statured and very thin male seen lying in his hospital bed.? He exhibits numerous needle in every area of exposed extremities. * Grooming:? Adequately groomed for being in the hospital.? poor dentition. * Behavior: Calm and cooperative with the evaluation, friendly and more engaging than previously. * Eye contact: Good eye contact * Gait:? Bed ridden unable to ambulate. * Speech:? Soft-spoken with Haitian accent, but speech has more volume now than in past. * Mood: ?Doing better. ? * Affect:? Pleasant and cooperative but mildly dysphoric.? Congruent with conten t, normal range and reactivity * Thought Process:? Linear, logical, and goal directed for the most part, but also extremely circumstantial at times and seems to enjoy long-winded stories. * Thought Content: Denies suicidal ideation, denies homicidal ideation, intent or plan; and there was no evidence of a formal thought or perceptual disturbance. * Attention: Attentive to interview * Orientation: Oriented to person, place, time, and circumstance * Memory: Intact for interview, not formally tested * Insight: Fair * Judgment: Fair Objective Labs Result Diagrams: 05/23/22 21:21 05/26/22 11:03 [facility] Medical History Asthma Chronic back pain greater than 3 months duration Closed intertrochanteric fracture of left femur Depression Drug abuse, IV History of CVA (cerebrovascular accident) Surgical History History of hernia repair Family History Father Unknown family medical history Mother No problems noted. Grandmother Myocardial infarction Grandfather No problems noted. Social History household members: friend(s) Smoking Status: Current some day smoker alcohol intake: current Assessment & Plan Assessment and plan (1) Depression: Qualifiers: Depression Type: unspecified Qualified Code(s): F32.A - Depression, unspecified Status: Acute (2) Substance abuse or dependence: Problem details: No signs of withdrawal or overt delirium. Status: Acute Plan ASSESSMENT/MEDICAL DECISION MAKING GUILLERMINA SZYMANSKI is a 62-year-old male with a very long history of severe polysubstance dependence in addition to prior CVA, right-sided hemiparesis, hypertension, hyperlipidemia, other significant medical problems.? The patient endorses significant symptoms of depression as well.? Given his recent enforced detox by this admission, he appears to be in the very early stages of recovery from his heroin drug habit.? However, this was not undertaken by choice but by the circumstance of his admission.? Thus, he still has an addicts mind set.? He also appears to have a rather passive dependent approach to his care and his symptoms, but this may be to his severely debilitated state.? As patient's overall status has started to improve, is noted other significant complaints in his health including lower jaw possible dental abscess pain. This is currently being worked up and addressed, but in the process the patient notes that he sarcastically, and somewhat dramatically, voiced suicidal ideation in this context. He denies actually wanting to harm himself in any way and reports that he is starting to feel mentally, as well as physically, better. He is able to convincingly convey that he is not suicidal at this time and has no wish for self-harm. RECOMMENDATIONS: 1.The patient is felt to be not suicidal at this time and a generally low risk for harm to self. 2. Continue Duloxetine as a reasonable choice for both as well as covering some of his complaints regarding chronic pain. May increase dose up to 60 mg if needed. 2. Continue to concur with trial of gabapentin as a non-addictive alternative to benzodiazepines for anxiety.? Note, would be cautious given potential side effects of ataxia, dizziness, and vomiting. 3. Continue to encourage increased activity as tolerated including increased responsibility for self-care to counter developing passive dependent on nursing staff for everything. 4. Continue to Communicate expectation of improvement and discharge. 5. Will continue to follow up periodically with you as needed.? Time Spent With Patient Time with patient: less than 30 minutes Critical Care time: I spent a total of 15 minutes minutes of critical care time on this patient's care today; this time is exclusive of procedural time. Quality VTE Deep Vein Thrombosis/Pulmonary Embolism Present on Admission: No
--- NOTE | 2022-06-05 14:41 | CM.DPC ---
DCP Cont: Called [facility], and spoke to Mey's grooming assistant. She is due back from the airport this pm, and can reach her tomorrow, she was out of the country. Called [facility], and spoke to Huma. Confirmed that they do have Medicaid beds available. Did let her know that patient does have drug history, but has not used recently, as he has been here since 6-7. She stated that they can review patient. Sent over his assessment from [facility], and sent over his face sheet, H&P, and some P.T. notes. Called [facility] and left a message with admissions to see if they have any Medicaid beds available. Patient had made some suicide remarks, earlier yesterday, and had 1:1 sitter. He later was re-evaluated, and scored low on suicide risk. Dr. Richmond has just seen patient, and cleared him for suicide risks. P: DCP to continue to follow. Sent over referral to [facility], and have a message out to [facility]. Claudia Segal RN/Inspection Manager
--- NOTE | 2022-06-05 15:17 | CM.DPC ---
DCP Cont: Called [facility] [place]. Spoke to Mey's family member, she is due at airport this pm, was out of the country, and will be back tomorrow. Called [facility] and spoke to Huma. Confirmed that they do have Medicaid beds. Gave her an update on patient, regarding his drug history. She is willing to have Giuliana review. Faxed over his [facility] assessment, face sheet, H&P, and latest P.T. notes. Also, left a message with [facility] to see if they have any beds. Patient had made some suicidal comments, early in the day yesterday, and at the time, was one on one with sitter. He has scored low on suicide risk, and now does not require sitter. Dr. Richmond, psychiatrist, came to see patient and cleared him. P: DCP to continue working on case. So far, [facility] is reviewing, have a message out to [facility], and can touch base tomorrow with [facility]. Claudia Segal, KWASI/Obstetrician
[2022-06-05 17:46] VITALS: BP 135/79; PULSE 75; RESP 17; TEMP 36.8; O2SAT 97
[2022-06-06] VITALS: BP 138/73; PULSE 76; RESP 17; TEMP 36.5; O2SAT 96
[2022-06-06] MEDS: HYDROCODONE/ACET 10/325 TABLET 1 TAB PO ×5 (00:46→17:47)
[2022-06-06 05:39] VITALS: BP 130/66; PULSE 73; RESP 17; TEMP 36.6; O2SAT 95
[2022-06-06] MEDS: DOCUSATE 100 MG CAPSULE PO ×2 (09:10→21:27)
[2022-06-06] MEDS: NICOTINE 7 MG PATCH TOP (09:10)
[2022-06-06] MEDS: DULOXETINE 30 MG CAPSULE PO (09:10)
[2022-06-06] MEDS: FOLIC ACID 1 MG TABLET PO (09:10)
[2022-06-06] MEDS: MULTIVITAMIN 1 TABLET 1 TAB PO (09:10)
[2022-06-06] MEDS: ENOXAPARIN 40 MG/0.4 ML SYRINGE SUBCUT (09:10)
[2022-06-06] MEDS: SENNOSIDES 8.6 MG TABLET PO ×2 (09:10→21:28)
[2022-06-06] MEDS: GABAPENTIN 400 MG CAPSULE PO ×3 (09:10→21:27)
[2022-06-06] MEDS: PANTOPRAZOLE DR 40 MG TABLET PO ×2 (09:10→21:27)
[2022-06-06] MEDS: LORazepam 0.5 MG TABLET PO ×2 (09:25→21:28)
[2022-06-06] MEDS: IBUPROFEN 400 MG TABLET 800 MG PO (09:25)
--- NOTE | 2022-06-06 10:27 | OT.IP.TRT ---
Current Diagnoses Depression, unspecified (05/01/22) Cerebral infarction, unspecified (05/01/22) Spinal stenosis, cervical region (05/01/22) Occupational Therapy Treatment Note M2 OT-IP Current Condition Start: 05/07/22 12:13 Freq: Status: Active Protocol: Document 05/07/22 12:13 CGR (Rec: 05/07/22 12:37 CGR [id number]) Occupational Therapy Current Condition Current Condition Evaluation Date 05/07/22 Treatment Diagnosis generalized weakness, hx IV drug use, R CVA 2016 Diagnosis Onset Date 05/01/22 M3 OT- IP Subjective and Pain Start: 05/07/22 12:13 Freq: Status: Active Protocol: Document 06/06/22 12:18 [facility] (Rec: 06/06/22 12:31 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 Patient/Caregiver Goals To be able to walk normally again and care for himself. OT Pain Assessment Pain When Pain Assessed At Rest Pain Present Pain Present Pain Reported Location teeth Intensity 9 Scale Used Numeric (0 - 10) M4 OT- IP ADL's Start: 05/07/22 12:13 Freq: Status: Active Protocol: Document 06/06/22 12:18 [facility] (Rec: 06/06/22 12:31 [facility] [id number]) OT [id number] Comments OT Self-Feeding Comments NOt at meal time. OT ADL-Grooming General Evaluation Grooming Ability Maximum Assistance Areas Needing Assistance Retrieving/Set-up of Grooming Items,Combing/Brushing Hair Comments OT Grooming Comments Pt able to use left hand to brush his hair and needing assist to put up his hair into a pony tail. Pt able to wash his face after set-up of wash cloth. OT ADL-Oral Care General Eval Oral Care Ability Standby Assistance,Maximum Assistance Areas of Assistance Retrieving/Set-Up of Items Comments Oral Care Comments MAXA to help place and hand over hand assist to help hold the mouth wash bottle in place for his right hand. OT ADL-Dressing Comments OT Dressing Comments total assist for his shoes OT ADL-Bathing Comments OT Bathing Comments Pt wanting to shower but at the end of the session too tried and not safe to get into the shower at this time. M5 OT- IP IADL's Start: 05/07/22 12:13 Freq: Status: Active Protocol: Document 05/07/22 12:13 CGR (Rec: 05/07/22 12:37 CGR [id number]) OT-Instrumental Activities of Daily Living Deficits IADL Deficits Identified Deficits Home Safety Awareness Awareness of Need for Assistance at Home Decreased Awareness Ability to Problem Solve Emergency Unable to Problem Solve Situations Medication Management Medication Management Comments Concerns about pt's ability to perform consistently Money Management Money Management Comments Concerns about pt's ability to perform consistently Meal Preparation Meal Preparation Comments Concerns about pt's ability to perform consistently Gunstock Spray Unit Feeder Gunstock Spray Unit Feeder Comments Concerns about pt's ability to perform consistently M6 OT- IP Functional Cognition Start: 05/07/22 12:13 Freq: Status: Active Protocol: Document 06/06/22 12:18 [facility] (Rec: 06/06/22 12:31 [facility] [id number]) Cognitive Factors Limiting Selfcare Function Cognitive Comments Cognitive Assessment Comments Pt still not recalling that he walked yesterday. Pt more pleasant and able to follow commands better today. Pt still needing cues to recall safety techniques and what to be able to do before coming to stand from the wc. Pt needing cues to scoot forwards, get his feet apart and feet behind his knees. M7 OT- IP Mobility and Balance Start: 05/07/22 12:13 Freq: Status: Active Protocol: Document 06/06/22 12:18 [facility] (Rec: 06/06/22 12:31 [facility] [id number]) OT-Transfer Assessment Sit to and From Stand Sit to and from Stand Minimal Assistance,Moderate Assistance,2 Person Assistance Transfers Transfer Ability Maximum Assistance,2 Person Assistance Technique Transfer Destination Bed,Chair,Wheelchair Transfer Technique Stand Step Pivot Devices Transfer Assistive Devices Gait Belt,Front Wheeled Walker Comments Mobility Comments Once pt is lined up, able to come to stand with ROULA x2, however as he tired needing MODAx2 to the FWW with right sided platform. Pt still needing assist to help guide the FWW, assist for balance, weight shifting, and safety cues to look upright, keep his feet apart, and take smaller steps. Pt today with his shoes on able to stand up a little taller while walking with FWW and assist x2 at the beginning of the session. OT- Balance Assessment Sitting Balance and Reactions Static Sitting Balance Ability Fair Dynamic Sitting Balance Ability Fair Standing Balance and Reactions Static Standing Balance Ability Poor Dynamic Standing Balance Ability Poor Comments Other Balance Tests/Deviations/Treatment Able to work on standing in : front of the mirror to work on trunk control. Pt has decreased awareness and body awareness at times to be able to correct his movements. M8 OT- IP Objective Assessments Start: 05/07/22 12:13 Freq: Status: Active Protocol: Document 05/07/22 12:13 CGR (Rec: 05/07/22 12:37 CGR [id number]) OT Gross Range of Motion Upper Extremity Range of Motion ROM Impairments AAROM WFL OT Strength Upper Extremity Strength Assessment Bilaterally Impaired Comments Strength Comments R weaker than L R grossly 2/5 L grossly 2+ to 3-/5 OT- Coordination Assessment Upper Extremity Finger to Nose Test Bilateral UE Impaired Finger Tapping Test Bilateral UE Impaired OT-Muscle Tone Assessment Muscle Tone WNL Yes OT Sensation Assessment Edema Edema Absent M9 OT- IP Assessment and Plan Start: 05/07/22 12:13 Freq: Status: Active Protocol: Document 06/06/22 12:18 [facility] (Rec: 06/06/22 12:31 CCC [id number]) OT Summary Assessment and Plan Potential Rehabilitation Potential Fair Analytic Complexity at Evaluation High Summary OT Impairments Pain,Strength,Balance, Coordination,Functional Cognition,Functional Mobility, Self-Feeding,Grooming,Dressing ,Toileting,Bathing,Toilet Transfers,Shower Transfers, Activity Tolerance Progress Towards Goals Progressing Toward Goals,Slow Progress due to Pain,Slow Progress due to Medical Issues Assessment Summary Pt motivated to walk mainly however needing education over and over to understand that it is best to work on his foundation of his trunk control and balance so able to improve his safety for his ambulation needs. In addition encouraged pt to actively work on improving his RUE function by doing daily shoulder elevation and retraction on his own. Pt still has decreased awareness for his RUE and needing cues and assist for placement during ADl and mobility needs. Goals Self-Feeding Goal Standby Assistance Grooming Goal Minimal Assistance Dressing Goal Moderate Assistance Toileting Goal Moderate Assistance Bathing Goal Moderate Assistance Toilet Transfer Goal Minimal Assistance Shower Transfer Goal Minimal Assistance Days to Meet Goals 43 Frequency of Treatment Frequency Of Treatment Once a Day Treatment Plan OT Treatment Plan ADL Training,Functional Cognition Training,Functional Mobility,Neuromuscular Re- education,Therapeutic Exercises,Patient/Family Education,Discharge Planning Other Treatment Recommendations and Next shower Treatment Focus Discharge Recommendations OT Discharge Recommendations SNF Rehab,LTAC Transportation Needs at Discharge Wheelchair/Cabulance
--- NOTE | 2022-06-06 11:05 | PT.IPTN ---
Current Diagnoses Depression, unspecified (05/01/22) Cerebral infarction, unspecified (05/01/22) Spinal stenosis, cervical region (05/01/22) Physical Therapy Treatment Note M2 PT-IP Current Condition Start: 05/07/22 09:18 Freq: NEEDED Status: Active Protocol: Document 05/18/22 13:22 SP (Rec: 05/18/22 16:05 SP [id number]) Physical Therapy Current Condition Current Condition Evaluation Date 05/07/22 Treatment Diagnosis metabolic encephalopathy; polysubstance withdrawal; impaired mobility Onset Date 04/30/22 M3 PT-IP Subjective Start: 05/07/22 09:18 Freq: NEEDED Status: Active Protocol: Document 06/06/22 10:26 KS (Rec: 06/06/22 11:24 KS [id number]) Subjective Physical Therapy Visit Type Type Treatment Note Visit Start Time 10:26 Visit Stop Time 11:05 Total Visit Minutes 39 Notes co-treat w/ OT. Number of RIGGING ENGINEER Visits 2 M4 PT-IP Mobility and Gait Start: 05/07/22 09:18 Freq: NEEDED Status: Active Protocol: Document 06/06/22 10:26 KS (Rec: 06/06/22 11:24 KS [id number]) PT-Bed Mobility Assessment Supine to Sit Supine to Sit Standby Assistance,Contact Guard Assistance,1 Person Assistance,Head of Bed Elevated,Bedrails Scooting Scooting to Edge of Bed Contact Guard Assistance PT-Transfer Assessment Sit to and From Stand Sit to and from Stand Minimal Assistance,Moderate Assistance,2 Person Assistance ,Use of Upper Extremities Equipment Transfer Assistive Device Gait Belt,Front Wheeled Walker Orthotic/Prosthetic Devices or Brace: No Transfers Transfer Destination Chair,Wheelchair Transfer Technique Pt ambulated w/ platform walker Transfer Ability Level of Assist Moderate Assistance,2 Person Assistance,Use of Upper Extremities Comments Mobility Comments Pt in bed upon arrival and eager to ambulate. SBA for sup <>sit from raised bed w/ cues to use bed rails. CGA for scooting EOB. Pt required Min A x2 on first attempt for sit< >stand and ambulated to hallway Mod Ax2 w/ max cues for upright posture and knee extension. Pt took seated rest break and then ambulate additional 50 ft w/ PFWW and Mod A x2. Pt ambulated w/ shoes donned today, still requires cues for equal step length, knee extension, upright posture, and avoiding scissoring gait. Pt took seated rest break, ambulated another 25 ft, took additional seated rest break and then ambulated remainder of distance back to room. Pts gait worsened w/ distance due to fatigue and muscle weakness . Practiced upright posture in the mirror ~1 min, but pt too fatigued to complete well and then needed Max A x2 for transfer back to chair. Pt left in chair w/ all needs in reach. Gait Assessment Gait Gait Assistance Required: Moderate Assistance,Maximum Assistance,2 Person Assist Distance (Feet) 50 Assistive Devices Assistive Device Gait Belt,Front Wheeled Walker Orthotic/Prosthetic Devices or Brace: No Gait Deviations General Gait Pattern Ataxic,Decreased Stride Length ,Decreased Feet Clearance, Flexed Trunk,Lateral Trunk Lean,Narrow Based Gait,Step-to Gait Factors Limiting Gait Function Factors Limiting Gait Function Decreased Activity Tolerance, Decreased Strength,Difficulty Following Directions, Incoordination,Pain,Poor Balance,Poor Safety Awareness Comments Gait Comments 50 ft, 25 ft, 25 ft, 10 ft. PT-Balance Assessment Sitting Balance and Reactions Static Sitting Balance Ability Fair Dynamic Sitting Balance Ability Fair Standing Balance and Reactions Static Standing Balance Ability Poor Dynamic Standing Balance Ability Poor Device Used FWW M5 PT-IP Objective Assessments Start: 05/07/22 09:18 Freq: NEEDED Status: Active Protocol: Document 05/07/22 11:05 AW (Rec: 05/07/22 13:30 AW [id number]) Orientation Orientation/Cognition Level of Alertness Lethargic Orientation Name,Month,Place Safety Awareness Decreased Safety Awareness Gross Range of Motion Lower Extremity ROM Assessment Within Functional Limits Strength Lower Extremity Strength Assessment Bilaterally Impaired Comments Strength Comments R grossly 3-/5. L grossly 3+/5 Coordination Assessment Gross Coordination Gross Coordination Impaired Assessment Finger to Nose Test Activity Impossible Foot Tapping Test Minimal Impairment Coordination Comments Pt limited by BUE weakness with UE coordination testing. Sensation Assessment Sensation Gross Sensation WNL Muscle Tone Muscle Tone WNL Yes M6 PT-IP Treatment Start: 05/07/22 09:18 Freq: NEEDED Status: Active Protocol: Document 06/06/22 10:26 KS (Rec: 06/06/22 11:24 KS [id number]) Physical Therapy Treatment Education Education Provided Safety Other Treatments Other Treatment Performed Standing balance in mirror M7 PT-IP Assessment and Plan Start: 05/07/22 09:18 Freq: NEEDED Status: Active Protocol: Document 06/06/22 10:26 KS (Rec: 06/06/22 11:24 KS [id number]) PT Summary Assessment and Plan Potential Rehabilitation Potential Fair Status of Condition at Evaluation Evolving Summary Impairments Strength,Balance,Coordination, Cognition,Bed Mobility, Transfers,Gait Progress Towards Goals Slow Progress due to Medical Issues,Slow Progress due to Activity Tolerance Assessment Summary Pt continues to require 2 person assist at all times due to poor balance, weakness, and need for specific cues during ambulation. Pt has difficulty maintaining knee extension during gait training due to weakness and gait worsens w/ distance due to fatigue however he is showing improvement w/ platform FWW. He requires 2PA and w/c follow at all times as well as max cues. Pt would benefit from continued skilled therapy, and will require SNF and fci care placement to improve functional mobility and strength. Goals Bed Mobility Goal Contact Guard Assistance Transfer Goal Standby Assistance,Front Wheeled Walker Gait Goal Standby Assistance,Front Wheel Walker Gait Distance 150 Other Goals up/down 4 steps with rails SBA - improve transfers and gait to SBA with 4WW Days to Meet Goals 10 Frequency of Treatment Frequency Of Treatment Once a Day Treatment Plan Physical Therapy Treatment Plan Bed Mobility Training,Transfer Training,Gait Training, Therapeutic Exercise,Balance Retraining,Discharge Planning, Hot or Cold Pack,Neuromuscular Re-ed,Coordination Retraining Other Recommendations and Next Treatment bed mob, sitting balance Focus activities, standing, transfers, gait using FWW chair follow. Consider using mirror for midline orientation . Continue standing balance in front of mirror. Precautions Other Precautions seizure precautions; falls risk Recommendations To Nursing Amount of Assist Needed 2 Person Assist Discharge Recommendations PT Discharge Recommendations SNF Rehab,LTAC Equipment Needed for Home Before FWW Discharge Transportation Needs at Discharge Wheelchair/Cabulance,Stretcher /Ambulance
[2022-06-06 15:05] VITALS: BP 122/79; PULSE 56; RESP 16; TEMP 36.1; O2SAT 91
--- NOTE | 2022-06-06 15:13 | CM.DPC ---
LTC placement ongoing SW emailed pt's assigned HCS worker Maria Fernanda to inquire about finalized HCS assessment and approved daily rate to determine if it will increase from tentative rate of $121.61. Awaiting response. SW called following LTC facilities: [facility]- wrong [facility]- full [facility]- busy signal [facility]- no answer [facility]- no answer, left msg [facility]- pt would need to ambulate stairs to get to bedroom, therefore not appropriate for pt at this time. [facility]- have an opening but $121 is not enough to accommodate current 2PA level. If daily rate increases, they would like us to call and would be willing to review. [facility]- left msg, have had an opening so emailed for review [facility]- have an open Medicaid bed and discussed with Stacy and emailed [email or web address] for review. [facility]- spoke to Maxi in admissions and they have an opening and faxed referral to [phone] for review. Called later and left msg if they have questions and encouraged them to meet him if any concerns. [facility]- [facility] states their reviewer Giuliana is out today but back tomorrow and she will request Giuliana review right away as referral was faxed yesterday 06/05/22. [facility]- Turist was supposed to be back in the office today as she has been out of the country on vacation and SW called but no answer and left msg requesting call back as they were interested and wanted at least $114 daily rate. Plan: SW to follow closely for final approval of HCS assessment and determination of daily rate and f/u with above AF[facility] reviewing pt's referral. CARLO Leonardo
[2022-06-06 19:00] VITALS: BP 127/74; PULSE 83; RESP 16; TEMP 36.3; O2SAT 96
--- NOTE | 2022-06-06 19:04 | PM.PN.1 ---
Subjective Subjective Date Patient Seen: 06/06/22 Interval history: Patient complains of tooth pain. He is on fentanyl patch and lortab every 4 hours. It provides some relief but he remains uncomfortable Exam Vital Signs (past 8 hours): - 06/06/22 15:05 Temperature 96.9 F L Pulse Rate 56 L Respiratory Rate 16 Blood Pressure 122/79 Pulse Oximetry 91 Oxygen Flow Rate 0 Oxygen Delivery Method Room Air Oxygen Flow Rate 0 Narrative Exam Narrative: ill appearing male Resp Other: Lungs: clear to auscultation Cardio Other: CV: RRR nl Sl S2 GI Other: Abd; soft/ non tender/ non distended Extrem Other: no edema Objective Labs Result Diagrams: 05/23/22 21:21 05/26/22 11:03 [facility] Medical History Asthma Chronic back pain greater than 3 months duration Closed intertrochanteric fracture of left femur Depression Drug abuse, IV History of CVA (cerebrovascular accident) Surgical History History of hernia repair Family History Father Unknown family medical history Mother No problems noted. Grandmother Myocardial infarction Grandfather No problems noted. Social History household members: friend(s) Smoking Status: Current some day smoker alcohol intake: current Assessment & Plan Assessment & Plan narrative: Weakness Patient appears to be chronically debilitated.? No evidence of new stroke on 2 different brain MRIs.? C-spine MRI did reveal some chronic pathology but no acute cord compression.? Orthopedic surgery consulted and recommended outpatient follow-up with Neurosurgery.? Acetylcholine antibodies and?DIXIE negative.? Remains on cymbalta since 05/18.? Gabapentin initiated 05/21.? Continues to have pain which the norco helps but wears off after 3 hours. Change norco to q3h instead of q4h. -also started on gabapentin, increased further to 400 mg TID. Start fentanyl patch today to see if baseline pain can be improved. -will start on scheduled ativan for continued spasticity. -recommend outpatient neurology 2. Altered mental status / metabolic encephalopathy, improved. Patient appears to be at baseline.? No evidence for withdrawal presently.? He is working with therapies on a daily basis and is slowly improving. Depression/?Suicidal ideation psych consultation pending Dr. Richmond saw the patient, no active suicidal ideation Medication adjustement noted 3. Hypertension Presently normotensive, not on therapy. 4. Hyperlipidemia Continue atorvastatin 5. Polysubstance dependence Although patient was intoxicated on admission, he has been?hospitalized for over 25 days.? There was evident concern early on that people were bringing controlled substances into the hospital.? However,? he has had restricted visitation since that time. 6.? Prior stroke with residual right-sided weakness Patient remains on atorvastatin 40 mg, aspirin 81 mg. 7. Microcytic anemia MCV is up to 71.? Hemoglobin is 11.? 8. Hepatitis C Hep C ab positive.? Hep C RNA >1 million.? Will need outpatient f/u. 9. Dental pain ?- ibuprofen prn, no great oral medications available on formulary (orajel for example). ?- given continued pain and severe tenderness, check a facial CT. Consider FS consultation with Dr. Vega. Time Spent With Patient Critical Care time: I spent a total of [] minutes of critical care time on this patient's care today; this time is exclusive of procedural time. Quality VTE Deep Vein Thrombosis/Pulmonary Embolism Present on Admission: No
[2022-06-07] MEDS: HYDROCODONE/ACET 10/325 TABLET 1 TAB PO ×3 (01:56→14:45)
[2022-06-07] MEDS: IBUPROFEN 400 MG TABLET 800 MG PO ×2 (05:07→17:20)
[2022-06-07 07:00] VITALS: BP 125/86; PULSE 86; RESP 16; TEMP 36.4; O2SAT 97
[2022-06-07] MEDS: DOCUSATE 100 MG CAPSULE PO ×2 (08:04→21:00)
[2022-06-07] MEDS: MULTIVITAMIN 1 TABLET 1 TAB PO (08:04)
[2022-06-07] MEDS: SENNOSIDES 8.6 MG TABLET PO ×2 (08:04→21:00)
[2022-06-07] MEDS: NICOTINE 7 MG PATCH TOP (08:04)
[2022-06-07] MEDS: GABAPENTIN 400 MG CAPSULE PO ×3 (08:04→21:00)
[2022-06-07] MEDS: DULOXETINE 30 MG CAPSULE PO (08:04)
[2022-06-07] MEDS: ENOXAPARIN 40 MG/0.4 ML SYRINGE SUBCUT (08:04)
[2022-06-07] MEDS: FOLIC ACID 1 MG TABLET PO (08:04)
[2022-06-07] MEDS: PANTOPRAZOLE DR 40 MG TABLET PO ×2 (08:04→21:00)
[2022-06-07] MEDS: LORazepam 1 MG TABLET 0.5 MG PO (08:08)
--- NOTE | 2022-06-07 11:12 | PT.IPTN ---
Current Diagnoses Depression, unspecified (05/01/22) Cerebral infarction, unspecified (05/01/22) Spinal stenosis, cervical region (05/01/22) Physical Therapy Treatment Note M2 PT-IP Current Condition Start: 05/07/22 09:18 Freq: NEEDED Status: Active Protocol: Document 05/18/22 13:22 SP (Rec: 05/18/22 16:05 SP [id number]) Physical Therapy Current Condition Current Condition Evaluation Date 05/07/22 Treatment Diagnosis metabolic encephalopathy; polysubstance withdrawal; impaired mobility Onset Date 04/30/22 M3 PT-IP Subjective Start: 05/07/22 09:18 Freq: NEEDED Status: Active Protocol: Document 06/07/22 10:28 KS (Rec: 06/07/22 11:38 KS [id number]) Subjective Physical Therapy Visit Type Type Treatment Note Visit Start Time 10:28 Visit Stop Time 11:12 Total Visit Minutes 44 Notes co-treat w/ OT. Number of PATIENT CASE MANAGER Visits 3 Physical Therapy Visit Comments Patient Comments Pt highly motivated and agreeable to working w/ therapy. Patient Goals To become more mobile and independent M4 PT-IP Mobility and Gait Start: 05/07/22 09:18 Freq: NEEDED Status: Active Protocol: Document 06/07/22 10:28 KS (Rec: 06/07/22 11:38 KS [id number]) PT-Bed Mobility Assessment Scooting Scooting to Edge of Bed Contact Guard Assistance PT-Transfer Assessment Sit to and From Stand Sit to and from Stand Moderate Assistance,1 Person Assistance,Use of Upper Extremities Equipment Transfer Assistive Device Gait Belt Orthotic/Prosthetic Devices or Brace: No Transfers Transfer Destination Chair,Toilet,Wheelchair Transfer Technique Squat pivot, stand pivot Transfer Ability Level of Assist Moderate Assistance,1 Person Assistance,Use of Upper Extremities Comments Mobility Comments Pt in chair upon arrival and agreeable to practice transfers. Positioned w/c close to chair and performed squat pivot transfer from chair to w/c towards R, w/c to chair to R, and then chair to w/c to L. Pt required Mod A for all squat pivot transfer, w/ slightly more assist when transferring to L side due to residual affects from previous stroke. Pt agrees transferring to R side is easier. Pt then transferred to toilet w/ stand pivot Mod A and use of grab bars. Pt left in bathroom w/ OT. Gait Assessment Comments Gait Comments Transfers only today. PT-Balance Assessment Sitting Balance and Reactions Static Sitting Balance Ability Fair Dynamic Sitting Balance Ability Fair M5 PT-IP Objective Assessments Start: 05/07/22 09:18 Freq: NEEDED Status: Active Protocol: Document 05/07/22 11:05 AW (Rec: 05/07/22 13:30 AW [id number]) Orientation Orientation/Cognition Level of Alertness Lethargic Orientation Name,Month,Place Safety Awareness Decreased Safety Awareness Gross Range of Motion Lower Extremity ROM Assessment Within Functional Limits Strength Lower Extremity Strength Assessment Bilaterally Impaired Comments Strength Comments R grossly 3-/5. L grossly 3+/5 Coordination Assessment Gross Coordination Gross Coordination Impaired Assessment Finger to Nose Test Activity Impossible Foot Tapping Test Minimal Impairment Coordination Comments Pt limited by BUE weakness with UE coordination testing. Sensation Assessment Sensation Gross Sensation WNL Muscle Tone Muscle Tone WNL Yes M6 PT-IP Treatment Start: 05/07/22 09:18 Freq: NEEDED Status: Active Protocol: Document 06/07/22 10:28 KS (Rec: 06/07/22 11:38 KS [id number]) Physical Therapy Treatment Education Education Provided Safety Other Treatments Other Treatment Performed Squat pivot transfer to R side x2 Squat pivot to L side x1 Stand pivot to R x1 Discussed acute rehab w/ pt. Pt states he is really wanting to become stronger and more independent and feels motivated by the progress he has made thus far. Willing to participate in multiple therapy sessions per day to improve. M7 PT-IP Assessment and Plan Start: 05/07/22 09:18 Freq: NEEDED Status: Active Protocol: Document 06/07/22 10:28 KS (Rec: 06/07/22 11:38 KS [id number]) PT Summary Assessment and Plan Potential Rehabilitation Potential Fair Status of Condition at Evaluation Evolving Summary Impairments Strength,Balance,Coordination, Cognition,Bed Mobility, Transfers,Gait Progress Towards Goals Slow Progress due to Medical Issues Assessment Summary Pt made significant progress w / transfers today, requiring only 1 person Mod A for squat pivot and stand pivot transfers to w/c, chair, and toilet. Easier to transfer to R side d/t L sided weakness. Pt w/ good energy and highly motivated. Discussed acute rehab and pt agreeable that this option sounds most beneficial to him reaching his mobility goals. Pt will benefit from acute rehab to improve strength and functional mobility independence. Will discuss w/ PT about pt having therapy twice daily as his tolerance has improved. Goals Bed Mobility Goal Contact Guard Assistance Transfer Goal Standby Assistance,Front Wheeled Walker Gait Goal Standby Assistance,Front Wheel Walker Gait Distance 150 Other Goals up/down 4 steps with rails SBA - improve transfers and gait to SBA with 4WW Days to Meet Goals 10 Frequency of Treatment Frequency Of Treatment Once a Day Treatment Plan Physical Therapy Treatment Plan Bed Mobility Training,Transfer Training,Gait Training, Therapeutic Exercise,Balance Retraining,Discharge Planning, Hot or Cold Pack,Neuromuscular Re-ed,Coordination Retraining Other Recommendations and Next Treatment Practice transfers w/ nursing Focus staff. bed mob, sitting balance activities, standing, transfers, gait using FWW chair follow. Consider using mirror for midline orientation . Continue standing balance in front of mirror. Precautions Other Precautions seizure precautions; falls risk Recommendations To Nursing Amount of Assist Needed 2 Person Assist Discharge Recommendations PT Discharge Recommendations SNF Rehab,LTAC Equipment Needed for Home Before FWW Discharge Transportation Needs at Discharge Wheelchair/Cabulance
--- NOTE | 2022-06-07 11:43 | OT.IP.TRT ---
Current Diagnoses Depression, unspecified (05/01/22) Cerebral infarction, unspecified (05/01/22) Spinal stenosis, cervical region (05/01/22) Occupational Therapy Treatment Note M2 OT-IP Current Condition Start: 05/07/22 12:13 Freq: Status: Active Protocol: Document 05/07/22 12:13 [facility] (Rec: 05/07/22 12:37 CGR [id number]) Occupational Therapy Current Condition Current Condition Evaluation Date 05/07/22 Treatment Diagnosis generalized weakness, hx IV drug use, R CVA 2016 Diagnosis Onset Date 05/01/22 M3 OT- IP Subjective and Pain Start: 05/07/22 12:13 Freq: Status: Active Protocol: Document 06/07/22 10:30 [facility] (Rec: 06/07/22 13:11 [facility] [id number]) OT- Subjective Occupational Therapy Visit Type Type Treatment Note Visit Start Time 10:30 Visit Stop Time 11:43 Total Visit Minutes 73 Occupational Therapy Visit Comments Patient Comments 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 Patient/Caregiver Goals To get better and to be able to care for himself more. OT Pain Assessment Pain When Pain Assessed At Rest Pain Present Pain Present Pain Reported M4 OT- IP ADL's Start: 05/07/22 12:13 Freq: Status: Active Protocol: Document 06/07/22 10:30 [facility] (Rec: 06/07/22 13:11 [facility] [id number]) OT AFE-Hijw-Wpxmsfu Comments OT Self-Feeding Comments NOt at meal time. OT ADL-Grooming Comments OT Grooming Comments Not performed. OT ADL-Oral Care Comments Oral Care Comments NOt performed. OT ADL-Dressing General Eval Lower Body Dressing Ability Maximum Assistance,Total Assistance Comments OT Dressing Comments Pt able to assist to hold his legs up so therapist able to get the brief over his feet. OT ADL-Toileting General Evaluation Toileting Ability Total Assistance Areas Needing Assistance Manage Clothing,Perform Perineal Hygiene Comments OT Toileting Comments One person assist to stand pt with MODA X 1 and use of grab bar and dependent from nursing aid for hygiene needs. Therapist earlier able to stand pt with MAXA X 1 and doff his brief and then sit down to the toilet. OT ADL-Bathing Bathing Type Bathing Type Shower General Evaluation Bathing Ability Maximal Assistance Areas Needing Assistance Retrieving/Setting Up Items, Wash/Dry Upper Body,Wash/Dry Back,Wash/Dry Perineal Area, Wash/Dry Lower Extremities Comments OT Bathing Comments Pt able to use his left UE to assist to wash his face body, perinal area in front and right UE, and top of his legs. Pt needing hand over hand assist to help move his RUE. M5 OT- IP IADL's Start: 05/07/22 12:13 Freq: Status: Active Protocol: Document 05/07/22 12:13 [facility] (Rec: 05/07/22 12:37 [facility] [id number]) OT-Instrumental Activities of Daily Living Deficits IADL Deficits Identified Deficits Home Safety Awareness Awareness of Need for Assistance at Home Decreased Awareness Ability to Problem Solve Emergency Unable to Problem Solve Situations Medication Management Medication Management Comments Concerns about pt's ability to perform consistently Money Management Money Management Comments Concerns about pt's ability to perform consistently Meal Preparation Meal Preparation Comments Concerns about pt's ability to perform consistently Zoology Professor Zoology Professor Comments Concerns about pt's ability to perform consistently M6 OT- IP Functional Cognition Start: 05/07/22 12:13 Freq: Status: Active Protocol: Document 06/07/22 10:30 [facility] (Rec: 06/07/22 13:11 [facility] [id number]) Cognitive Factors Limiting Selfcare Function Cognitive Ability Level of Alertness Alert Attention Span Ability Capable of Focused Attention, Capable of Sustained Attention Ability to Follow Commands Able to Follow One Step Commands Cognitive Comments Cognitive Assessment Comments Pt much more alert today and motivated to get better. Pt noted increased safety awareness today and better understanding of his needs today. Spoke to pt at length regarding possibility of doing acute rehab versus skilled rehab as pt now tolerating more therapy, more alert and showing better body control and awareness, pt states willing to try as motivated to get better. Able to talk to the pt about trying to increase his OT therapy frequency to twice starting tomorrow to therefore incorporate more of ADL and RUE needs. Pt in agreement as he feels that he can tolerate more therapy at this time. M7 OT- IP Mobility and Balance Start: 05/07/22 12:13 Freq: Status: Active Protocol: Document 06/07/22 10:30 [facility] (Rec: 06/07/22 13:11 [facility] [id number]) OT-Transfer Assessment Sit to and From Stand Sit to and from Stand Moderate Assistance Transfers Transfer Ability Moderate Assistance,Maximum Assistance Technique Transfer Destination Chair,Toilet,Wheelchair Transfer Technique Squat Pivot Devices Transfer Assistive Devices Gait Belt Comments Mobility Comments Able to initiate education to pt for squat pivot transfer to his strong side going left and also tried going to the right. Pt needing cues for set -up on scooting forwards, hand and feet placement, and able to show better body control during the squat pivot transfer to and from the WC<> recliner with arm rest taken off. Pt able to do stand pivot transfer to the toilet with use of his left hand on the grab bar MOD/MAX AX 1. OT- Balance Assessment Sitting Balance and Reactions Static Sitting Balance Ability Good Dynamic Sitting Balance Ability Fair Standing Balance and Reactions Static Standing Balance Ability Poor Dynamic Standing Balance Ability Poor Comments Other Balance Tests/Deviations/Treatment Pt today much improved with : trunk control and able to maintain midline better while in the shower with use of grab bar to assist. Right hand noted more swollen today and educated pt to try to keep in elevated as much as possible. M9 OT- IP Assessment and Plan Start: 05/07/22 12:13 Freq: Status: Active Protocol: Document 06/07/22 10:30 [facility] (Rec: 06/07/22 13:11 [facility] [id number]) OT Summary Assessment and Plan Potential Rehabilitation Potential Good Analytic Complexity at Evaluation High Summary OT Impairments Pain,Strength,Balance, Coordination,Functional Cognition,Functional Mobility, Self-Feeding,Grooming,Dressing ,Toileting,Bathing,Toilet Transfers,Shower Transfers, Activity Tolerance Progress Towards Goals Progressing Toward Goals Assessment Summary Pt doing better with midline and trunk control today and able to do stand pivot and squat pivot transfers with MODA X1 to MAX X 1. Pt still needing a second person for dressing, toileting and bathing needs. Pt is open to go to acute rehab as feels motivated to get better and now willing to put in the work . Goals Self-Feeding Goal Standby Assistance Grooming Goal Minimal Assistance Dressing Goal Moderate Assistance Toileting Goal Moderate Assistance Bathing Goal Moderate Assistance Toilet Transfer Goal Minimal Assistance Shower Transfer Goal Minimal Assistance Days to Meet Goals 40 Frequency of Treatment Frequency Of Treatment Once a Day Treatment Plan OT Treatment Plan ADL Training,Functional Cognition Training,Functional Mobility,Neuromuscular Re- education,Therapeutic Exercises,Patient/Family Education,Discharge Planning Other Treatment Recommendations and Next LB dressing Treatment Focus Discharge Recommendations OT Discharge Recommendations SNF Rehab,Acute Rehab,SNF vs Acute Rehab Transportation Needs at Discharge Wheelchair/Cabulance
[2022-06-07] MEDS: SCOPOLAMINE 1 PATCH TOP (14:45)
--- NOTE | 2022-06-07 15:04 | CM.DPC ---
DCP Cont: Per MALT ROASTER, PT and OT worked hard with pt today and he is now 1PA for transfers, remains 2PA for mobility, but continues to be highly motivated and making slow improvements and PT/OT feel pt could benefit from Acute Inpt Rehab and discussed with pt and he is agreeable if he is accepted for Acute Rehab. MELISA called following Acute Inpt Rehab: [facility]: Yung covering for Genna in admissions today and SW discussed pt status and needs and he is agreeable with reviewing referral towards determining if they can accept as initially when referral discussed 05/15/22 a couple weeks ago they declined pt as he did not have a good d/c plan from their facility. SW faxed updated referral with most recent MD notes, PT/OT notes and MAR for review. Keren Dario: updated Nickolas on pt current status and completed HCS assessment and pt's motivation and improvements and he is willing to review and faxed updated most recent referral notes to review. MELISA followed up on prior referred LTC facilities: [facility]: MELISA left a few msg for both Merly and Maxi in admissions regarding the referral discussed and faxed yesterday along with faxing updated PT note from today showing 1PA transfers and possible option of Acute Rehab prior to LTC placement if they would accept. Awaiting return call. [facility]: MELISA confirmed with Mey that she received referral on pt but she could not open the email and MELISA resent along with updated PT note showing 1PA transfers and awaiting her review. [facility]: MELISA left msg for Huma and Giuliana is supposed to be back in the office today and reviewing and awaiting return call after review. SW faxed updated PT note from today as well. [facility]: MELISA spoke to Stacy ([phone]) and she confirms referral received and SW updated on current 1PA with transfers and she states they are reviewing 4 different referrals and is hopeful to have an answer regarding pt by tomorrow 06/08/22 morning. Alana Amezquita [facility]- reviewed and did not feel pt would be a good fit for their current residents and declined accepting him. Plan: SW to follow closely for above facilities ([facility] and Acute Inpt Rehab) reviewing pt towards possible acceptance and calling for updates tomorrow. CARLO Leonardo
--- NOTE | 2022-06-07 17:05 | PM.PN.1 ---
Subjective Subjective Date Patient Seen: 06/07/22 Interval history: Patient continues to complain of tooth pain, he would like to continue oral pain medications. He was able to be a 1 person max assist improved from a 2 person assist. Goals now to see if he can get to Acute Rehabilitation Exam Vital Signs (past 8 hours): Oxygen Delivery Method Room Air Oxygen Flow Rate 0 Narrative Exam Narrative: ill appearing male lying in bed Resp Other: Lungs: clear to auscultation Cardio Other: CV: RRR nl sl S2 GI Other: Abd: soft/ non tender Extrem Other: excoriations on anterior alvarado, dressing over left leg Objective Labs Result Diagrams: 05/23/22 21:21 05/26/22 11:03 [facility] Medical History Asthma Chronic back pain greater than 3 months duration Closed intertrochanteric fracture of left femur Depression Drug abuse, IV History of CVA (cerebrovascular accident) Surgical History History of hernia repair Family History Father Unknown family medical history Mother No problems noted. Grandmother Myocardial infarction Grandfather No problems noted. Social History household members: friend(s) Smoking Status: Current some day smoker alcohol intake: current Assessment & Plan Assessment & Plan narrative: Weakness Patient appears to be chronically debilitated.? No evidence of new stroke on 2 different brain MRIs.? C-spine MRI did reveal some chronic pathology but no acute cord compression.? Orthopedic surgery consulted and recommended outpatient follow-up with Neurosurgery.? Acetylcholine antibodies and?DIXIE negative.? Remains on cymbalta since 05/18.? Gabapentin initiated 05/21.? Continues to have pain which the norco helps but wears off after 3 hours. Change norco to q3h instead of q4h. -also started on gabapentin, increased further to 400 mg TID. Start fentanyl patch today to see if baseline pain can be improved. -will start on scheduled ativan for continued spasticity. -recommend outpatient neurology -given improved functional status, will attempt Acute rehab transfer 2. Altered mental status / metabolic encephalopathy, improved. Patient appears to be at baseline.? No evidence for withdrawal presently.? He is working with therapies on a daily basis and is slowly improving. Depression/?Suicidal ideation psych consultation pending Dr. Richmond saw the patient, no active suicidal ideation Medication adjustement noted 3. Hypertension Presently normotensive, not on therapy. 4. Hyperlipidemia Continue atorvastatin 5. Polysubstance dependence Although patient was intoxicated on admission, he has been?hospitalized for over 25 days.? There was evident concern early on that people were bringing controlled substances into the hospital.? However,? he has had restricted visitation since that time. 6.? Prior stroke with residual right-sided weakness Patient remains on atorvastatin 40 mg, aspirin 81 mg. 7. Microcytic anemia MCV is up to 71.? Hemoglobin is 11.? 8. Hepatitis C Hep C ab positive.? Hep C RNA >1 million.? Will need outpatient f/u. 9. Dental pain ?- ibuprofen prn, no great oral medications available on formulary (orajel for example). ?- given continued pain and severe tenderness, check a facial CT. Consider FS consultation with Dr. Vega. -likely will need outpatient evaluation -lortab for pain Time Spent With Patient Critical Care time: I spent a total of [] minutes of critical care time on this patient's care today; this time is exclusive of procedural time. Quality VTE Deep Vein Thrombosis/Pulmonary Embolism Present on Admission: No
[2022-06-07] MEDS: HYDROCODONE/ACET 5/325 TABLET 1 TAB PO ×2 (17:21→23:40)
[2022-06-07 21:00] VITALS: BP 131/74; PULSE 70; RESP 14; TEMP 36.8; O2SAT 97
[2022-06-07] MEDS: LORazepam 0.5 MG TABLET PO (21:00)
[2022-06-08] MEDS: HYDROCODONE/ACET 5/325 TABLET 1 TAB PO ×5 (05:20→20:47)
--- NOTE | 2022-06-08 09:14 | OT.IP.TRT ---
Current Diagnoses Depression, unspecified (05/01/22) Cerebral infarction, unspecified (05/01/22) Spinal stenosis, cervical region (05/01/22) Occupational Therapy Treatment Note M2 OT-IP Current Condition Start: 05/07/22 12:13 Freq: Status: Active Protocol: Document 05/07/22 12:13 [facility] (Rec: 05/07/22 12:37 [facility] [id number]) Occupational Therapy Current Condition Current Condition Evaluation Date 05/07/22 Treatment Diagnosis generalized weakness, hx IV drug use, R CVA 2016 Diagnosis Onset Date 05/01/22 M3 OT- IP Subjective and Pain Start: 05/07/22 12:13 Freq: Status: Active Protocol: Document 06/08/22 09:23 [facility] (Rec: 06/08/22 09:47 [facility] [id number]) OT- Subjective Occupational Therapy Visit Type Type Treatment Note Visit Start Time 08:35 Visit Stop Time 09:14 Total Visit Minutes 39 Occupational Therapy Visit Comments Patient Comments Pt eating breakfast when OT came to work with him. Able let nursing know of pt's request for pain medications. Patient/Caregiver Goals To get better. OT Pain Assessment Pain When Pain Assessed At Rest Pain Present Pain Present Pain Reported Location teeth Intensity 11 Scale Used Numeric (0 - 10) M4 OT- IP ADL's Start: 05/07/22 12:13 Freq: Status: Active Protocol: Document 06/08/22 09:23 [facility] (Rec: 06/08/22 09:47 [facility] [id number]) OT ERS-Rqaw-Stkrebg General Evaluation Self-Feeding Ability Minimal Assistance Areas Needing Assistance Cutting Food,Drinking From Cup /Glass,Loading Utensil,Opening Containers Comments OT Self-Feeding Comments Pt spilling his hot tea which was in a coffee cup. Suggested to kitchen staff to bring pt paper cup with sleeve on and lid to help prevent pt for possibly getting burned from the hot liquids. In addition, would be helpful for pt to have a plate guard and curved utensils to assist with his independence for meals. OT ADL-Grooming General Evaluation Grooming Ability Standby Assistance Comments OT Grooming Comments Pt able to wash his face after set-up. OT ADL-Oral Care General Eval Oral Care Ability Standby Assistance Comments Oral Care Comments Pt able to use swab to swab his mouth out with his left hand. M5 OT- IP IADL's Start: 05/07/22 12:13 Freq: Status: Active Protocol: Document 05/07/22 12:13 [facility] (Rec: 05/07/22 12:37 [facility] [id number]) OT-Instrumental Activities of Daily Living Deficits IADL Deficits Identified Deficits Home Safety Awareness Awareness of Need for Assistance at Home Decreased Awareness Ability to Problem Solve Emergency Unable to Problem Solve Situations Medication Management Medication Management Comments Concerns about pt's ability to perform consistently Money Management Money Management Comments Concerns about pt's ability to perform consistently Meal Preparation Meal Preparation Comments Concerns about pt's ability to perform consistently Web Site Designer Web Site Designer Comments Concerns about pt's ability to perform consistently M6 OT- IP Functional Cognition Start: 05/07/22 12:13 Freq: Status: Active Protocol: Document 06/08/22 09:23 [facility] (Rec: 06/08/22 09:47 [facility] [id number]) Cognitive Factors Limiting Selfcare Function Cognitive Ability Level of Alertness Alert Attention Span Ability Capable of Focused Attention, Capable of Sustained Attention Ability to Follow Commands Able to Follow One Step Commands Cognitive Comments Cognitive Assessment Comments Pt in lots of pain today for his teeth. Pt states in the past has gotten his dentist to come to hospital to work on his teeth. M8 OT- IP Objective Assessments Start: 05/07/22 12:13 Freq: Status: Active Protocol: Document 06/08/22 09:23 [facility] (Rec: 06/08/22 09:47 [facility] [id number]) OT- Coordination Assessment Comments Coordination Comments Able to do gentle PROM, gentle carpal mobs to pt's right hand to try to increased ROM. M9 OT- IP Assessment and Plan Start: 05/07/22 12:13 Freq: Status: Active Protocol: Document 06/08/22 09:23 [facility] (Rec: 06/08/22 09:47 [facility] [id number]) OT Summary Assessment and Plan Potential Rehabilitation Potential Good Analytic Complexity at Evaluation High Summary OT Impairments Pain,Strength,Balance, Coordination,Functional Cognition,Functional Mobility, Self-Feeding,Grooming,Dressing ,Toileting,Bathing,Toilet Transfers,Shower Transfers, Activity Tolerance Progress Towards Goals Progressing Toward Goals,Slow Progress due to Pain,Slow Progress due to Medical Issues Assessment Summary Pt in lots of pain today with his teeth and now stating can feel it to his ear. Pt still agreed to try to do OT via self-eating tasks and ROM for RUE/hand. Asked kitchen staff for lidded paper cups with sleeve for all his hot liquids , plate guards, and curved utensils to help increase his independence with eating needs . Pt would greatly benefit from acute rehab versus SNF at this time, especially if his pain if able to be manage better. To increase OT frequency for pt to twice a day as pt tolerating more and to focus on ADL's independence, RUE function in addition to mobility needs. Goals Self-Feeding Goal Standby Assistance Grooming Goal Minimal Assistance Dressing Goal Moderate Assistance Toileting Goal Moderate Assistance Bathing Goal Moderate Assistance Toilet Transfer Goal Minimal Assistance Shower Transfer Goal Minimal Assistance Days to Meet Goals 40 Frequency of Treatment Frequency Of Treatment Twice a Day Treatment Plan OT Treatment Plan ADL Training,Functional Cognition Training,Functional Mobility,Neuromuscular Re- education,Therapeutic Exercises,Patient/Family Education,Discharge Planning Discharge Recommendations OT Discharge Recommendations SNF Rehab,Acute Rehab,SNF vs Acute Rehab Transportation Needs at Discharge Wheelchair/Cabulance
[2022-06-08] MEDS: FOLIC ACID 1 MG TABLET PO (09:19)
[2022-06-08] MEDS: DOCUSATE 100 MG CAPSULE PO ×2 (09:19→20:47)
[2022-06-08] MEDS: PANTOPRAZOLE DR 40 MG TABLET PO ×2 (09:19→20:47)
[2022-06-08] MEDS: GABAPENTIN 400 MG CAPSULE PO ×3 (09:19→20:47)
[2022-06-08] MEDS: DULOXETINE 30 MG CAPSULE 60 MG PO (09:19)
[2022-06-08] MEDS: MULTIVITAMIN 1 TABLET 1 TAB PO (09:19)
[2022-06-08] MEDS: NICOTINE 7 MG PATCH TOP (09:28)
[2022-06-08] MEDS: LORazepam 1 MG TABLET 0.5 MG PO ×2 (09:29→09:30)
[2022-06-08 09:30] VITALS: BP 115/69; PULSE 74; RESP 18; TEMP 36.2; O2SAT 95
[2022-06-08] MEDS: ENOXAPARIN 40 MG/0.4 ML SYRINGE SUBCUT (09:30)
--- NOTE | 2022-06-08 11:05 | PT.IPTN ---
Current Diagnoses Depression, unspecified (05/01/22) Cerebral infarction, unspecified (05/01/22) Spinal stenosis, cervical region (05/01/22) Physical Therapy Treatment Note M2 PT-IP Current Condition Start: 05/07/22 09:18 Freq: NEEDED Status: Active Protocol: Document 05/18/22 13:22 SP (Rec: 05/18/22 16:05 SP [id number]) Physical Therapy Current Condition Current Condition Evaluation Date 05/07/22 Treatment Diagnosis metabolic encephalopathy; polysubstance withdrawal; impaired mobility Onset Date 04/30/22 M3 PT-IP Subjective Start: 05/07/22 09:18 Freq: NEEDED Status: Active Protocol: Document 06/08/22 10:45 KS (Rec: 06/08/22 11:33 KS [id number]) Subjective Physical Therapy Visit Type Type Treatment Note Visit Start Time 10:45 Visit Stop Time 11:05 Total Visit Minutes 20 Notes Partial co-treat w/ OT. Number of INSTALLATION & MAINTENANCE EXECUTIVE Visits 4 Physical Therapy Visit Comments Patient Comments Pt having increased tooth pain today, but agreeable to work w/ therapy. Patient Goals To become more mobile and independent Therapy Pain Assessment Pain When Pain Assessed At Rest Pain Present Pain Present Pain Reported Location teeth Scale Used not quantified Description Aching,Pressure,Throbbing Pain Behaviors Crying,Facial Grimacing, Moaning,Wincing Pain Management Techniques Distraction,Modification of Treatment,Re-positioning, Timing of Activity with Medications M4 PT-IP Mobility and Gait Start: 05/07/22 09:18 Freq: NEEDED Status: Active Protocol: Document 06/08/22 10:45 KS (Rec: 06/08/22 11:33 KS [id number]) PT-Bed Mobility Assessment Rolling Type of Rolling Log Rolling,Roll to Right Level of Assist Contact Guard Assistance Supine to Sit Supine to Sit Contact Guard Assistance,1 Person Assistance,Bedrails Scooting Scooting to Edge of Bed Contact Guard Assistance PT-Transfer Assessment Sit to and From Stand Sit to and from Stand Maximum Assistance,1 Person Assistance,Use of Upper Extremities Equipment Transfer Assistive Device Gait Belt Orthotic/Prosthetic Devices or Brace: No Transfers Transfer Destination Chair,Toilet,Wheelchair Transfer Technique Squat pivot, stand pivot Transfer Ability Level of Assist Moderate Assistance,Maximum Assistance,1 Person Assistance ,Use of Upper Extremities Comments Mobility Comments Pt in bed upon arrival and agreeable to practice transfers again today. CGA for sup<>sit and CGA for scooting EOB. Pt requires increased time to perform tasks due to pain and weakness and cues to rest RUE on bed for support d/ t R sided weakness. Pt performed squat pivot transfer from bed to w/c Mod-Max A x1 w/ cues for hand placement and sequencing. Pt requested to use toilet for BM. W/c transfer to bathroom and left w/ OT to assist. Gait Assessment Comments Gait Comments Transfers only today. PT-Balance Assessment Sitting Balance and Reactions Static Sitting Balance Ability Fair Dynamic Sitting Balance Ability Fair M5 PT-IP Objective Assessments Start: 05/07/22 09:18 Freq: NEEDED Status: Active Protocol: Document 05/07/22 11:05 AW (Rec: 05/07/22 13:30 AW [id number]) Orientation Orientation/Cognition Level of Alertness Lethargic Orientation Name,Month,Place Safety Awareness Decreased Safety Awareness Gross Range of Motion Lower Extremity ROM Assessment Within Functional Limits Strength Lower Extremity Strength Assessment Bilaterally Impaired Comments Strength Comments R grossly 3-/5. L grossly 3+/5 Coordination Assessment Gross Coordination Gross Coordination Impaired Assessment Finger to Nose Test Activity Impossible Foot Tapping Test Minimal Impairment Coordination Comments Pt limited by BUE weakness with UE coordination testing. Sensation Assessment Sensation Gross Sensation WNL Muscle Tone Muscle Tone WNL Yes M6 PT-IP Treatment Start: 05/07/22 09:18 Freq: NEEDED Status: Active Protocol: Document 06/08/22 10:45 KS (Rec: 06/08/22 11:33 KS [id number]) Physical Therapy Treatment Education Education Provided Safety Other Treatments Other Treatment Performed Discussed acute rehab and d/c plan. Pt still very motivated to go to acute rehab and also states he will continue not smoking if able to go to adult family home following acute rehab. M7 PT-IP Assessment and Plan Start: 05/07/22 09:18 Freq: NEEDED Status: Active Protocol: Document 06/08/22 10:45 KS (Rec: 06/08/22 11:33 KS [id number]) PT Summary Assessment and Plan Potential Rehabilitation Potential Fair Status of Condition at Evaluation Evolving Summary Impairments Strength,Balance,Coordination, Cognition,Bed Mobility, Transfers,Gait Progress Towards Goals Slow Progress due to Medical Issues Assessment Summary Pt has increased tooth and neck pain limiting mobility today, but still agreeable to therapy. Required CGA and cues for bed mobility and Mod-Max A and cues for hand placement and sequencing for squat pivot transfer. Pt will benefit from acute rehab to improve strength and functional mobility independence. Goals Bed Mobility Goal Contact Guard Assistance Transfer Goal Standby Assistance,Front Wheeled Walker Gait Goal Standby Assistance,Front Wheel Walker Gait Distance 150 Other Goals up/down 4 steps with rails SBA - improve transfers and gait to SBA with 4WW Days to Meet Goals 10 Frequency of Treatment Frequency Of Treatment Once a Day Treatment Plan Physical Therapy Treatment Plan Bed Mobility Training,Transfer Training,Gait Training, Therapeutic Exercise,Balance Retraining,Discharge Planning, Hot or Cold Pack,Neuromuscular Re-ed,Coordination Retraining Other Recommendations and Next Treatment Continue transfer training to bed, Focus chair,w/c. Practice transfers w/ nursing staff. bed mob, sitting balance activities, standing, transfers, gait using FWW chair follow. Consider using mirror for midline orientation. Continue standing balance in front of mirror. Precautions Other Precautions seizure precautions; falls risk Recommendations To Nursing Amount of Assist Needed 2 Person Assist Discharge Recommendations PT Discharge Recommendations SNF Rehab,LTAC Transportation Needs at Discharge Wheelchair/Cabulance
--- NOTE | 2022-06-08 11:12 | OT.IP.TRT ---
Current Diagnoses Depression, unspecified (05/01/22) Cerebral infarction, unspecified (05/01/22) Spinal stenosis, cervical region (05/01/22) Occupational Therapy Treatment Note M2 OT-IP Current Condition Start: 05/07/22 12:13 Freq: Status: Active Protocol: Document 05/07/22 12:13 CGR (Rec: 05/07/22 12:37 CGR [id number]) Occupational Therapy Current Condition Current Condition Evaluation Date 05/07/22 Treatment Diagnosis generalized weakness, hx IV drug use, R CVA 2016 Diagnosis Onset Date 05/01/22 M3 OT- IP Subjective and Pain Start: 05/07/22 12:13 Freq: Status: Active Protocol: Document 06/08/22 11:16 [facility] (Rec: 06/08/22 11:30 [facility] [id number]) OT- Subjective Occupational Therapy Visit Type Type Treatment Note Visit Start Time 10:45 Visit Stop Time 11:12 Total Visit Minutes 27 Occupational Therapy Visit Comments Patient Comments Pt in lots of pain and but willing to get up. Patient/Caregiver Goals to get better, and agreeable to go to acute rehab OT Pain Assessment Pain When Pain Assessed At Rest Pain Present Pain Present Pain Reported Location teeth Pain Behaviors Calling Out,Crying,Facial Grimacing M4 OT- IP ADL's Start: 05/07/22 12:13 Freq: Status: Active Protocol: Document 06/08/22 11:16 [facility] (Rec: 06/08/22 11:30 [facility] [id number]) OT ADL-Dressing General Eval Lower Body Dressing Ability Maximum Assistance OT ADL-Toileting General Evaluation Toileting Ability Maximum Assistance,Total Assistance Areas Needing Assistance Manage Clothing,Perform Perineal Hygiene Comments OT Toileting Comments Pt needing MAX A X1 to stand with OT and nursing aid able to assist with hygiene and brief management needs. M5 OT- IP IADL's Start: 05/07/22 12:13 Freq: Status: Active Protocol: Document 05/07/22 12:13 CGR (Rec: 05/07/22 12:37 R [id number]) OT-Instrumental Activities of Daily Living Deficits IADL Deficits Identified Deficits Home Safety Awareness Awareness of Need for Assistance at Home Decreased Awareness Ability to Problem Solve Emergency Unable to Problem Solve Situations Medication Management Medication Management Comments Concerns about pt's ability to perform consistently Money Management Money Management Comments Concerns about pt's ability to perform consistently Meal Preparation Meal Preparation Comments Concerns about pt's ability to perform consistently Solution Consultant Solution Consultant Comments Concerns about pt's ability to perform consistently M6 OT- IP Functional Cognition Start: 05/07/22 12:13 Freq: Status: Active Protocol: Document 06/08/22 11:16 [facility] (Rec: 06/08/22 11:30 [facility] [id number]) Cognitive Factors Limiting Selfcare Function Cognitive Ability Level of Alertness Alert Attention Span Ability Capable of Focused Attention, Capable of Sustained Attention Ability to Follow Commands Able to Follow One Step Commands Cognitive Comments Cognitive Assessment Comments Pt still in a lot of pain, however still willing to get up for therapy at this time. M7 OT- IP Mobility and Balance Start: 05/07/22 12:13 Freq: Status: Active Protocol: Document 06/08/22 11:16 [facility] (Rec: 06/08/22 11:30 [facility] [id number]) OT- Bed Mobility Assessment Supine to Sit Supine to Sit Assist Contact Guard Assistance OT-Transfer Assessment Sit to and From Stand Sit to and from Stand Moderate Assistance,Maximum Assistance,1 Person Assistance Transfers Transfer Ability Minimal Assistance,Moderate Assistance,Maximum Assistance, 1 Person Assistance,2 Person Assistance Technique Transfer Destination Bed,Chair,Toilet Transfer Technique Stand Step Pivot Devices Transfer Assistive Devices Gait Belt,Front Wheeled Walker Comments Mobility Comments CGA to help sit upright to the edge of the bed. Pt MODA to MAXA squat pivot and MAX AX 1 and ROULA x1 stand pivot as pt unable to use grab bar to assist on the way back to the wc from the toilet. OT- Balance Assessment Sitting Balance and Reactions Static Sitting Balance Ability Fair Dynamic Sitting Balance Ability Poor Standing Balance and Reactions Static Standing Balance Ability Poor Dynamic Standing Balance Ability Poor Comments Other Balance Tests/Deviations/Treatment Pt is more pain on second : session and having more difficulty with his balance and trunk control. M9 OT- IP Assessment and Plan Start: 05/07/22 12:13 Freq: Status: Active Protocol: Document 06/08/22 11:16 [facility] (Rec: 06/08/22 11:30 [facility] [id number]) OT Summary Assessment and Plan Potential Rehabilitation Potential Good Analytic Complexity at Evaluation High Summary OT Impairments Pain,Strength,Balance, Coordination,Functional Cognition,Functional Mobility, Self-Feeding,Grooming,Dressing ,Toileting,Bathing,Toilet Transfers,Shower Transfers, Activity Tolerance Progress Towards Goals Slow Progress due to Pain,Slow Progress due to Medical Issues Assessment Summary Pt having a lot of pain and therefore limits his ability to participate more today, however pt still willing to get up and move. Able to transfer pt to the toilet with grab bar and OT stand pivot MAX AX 1 and another person assist for brief management needs. Pt would greatly benefit from acute rehab versus SNF as very motivated and willing to get better. Goals Self-Feeding Goal Standby Assistance Grooming Goal Minimal Assistance Dressing Goal Moderate Assistance Toileting Goal Moderate Assistance Bathing Goal Moderate Assistance Toilet Transfer Goal Minimal Assistance Shower Transfer Goal Minimal Assistance Days to Meet Goals 40 Frequency of Treatment Frequency Of Treatment Twice a Day Treatment Plan OT Treatment Plan ADL Training,Functional Cognition Training,Functional Mobility,Neuromuscular Re- education,Therapeutic Exercises,Patient/Family Education,Discharge Planning Discharge Recommendations OT Discharge Recommendations SNF Rehab,Acute Rehab,SNF vs Acute Rehab Transportation Needs at Discharge Wheelchair/Cabulance
--- NOTE | 2022-06-08 11:55 | CM.DPC ---
Addendum entered by Roya More R.N. 06/08/22 15:53: DCP followed up with [facility] inpatient rehab. Per [facility], they are currently still reviewing and will follow up once decision is made. Stated possible saturday with decision. DCP to continue to follow. ADJ Addendum entered by Roya More R.N. 06/08/22 13:55: Spoke with [facility] and [facility] this afternoon and unfortunately, they are now declining the pt. Nickolas spoke with his medical delivery driver and he declined due to the uncertain diagnosis and ability to work with pt to get better. Mey @ [facility] declined pt due to the underlying substance abuse and nicotine usage. DCP to continue to contact more family homes. Roya More RN/GISSELLE Original Note: DCP Cont: DCP spoke with Nickolas @ [facility] this morning to inquire about pt referral status. Per Nickolas, he wants to know discharge plan post discharge from their facility and what [facility] would be willing to accept pt. Nickolas stated that once there is a plan, he would submit for review as this patient looks like he would be a good candidate for their program. DCP contacted [facility] to inquire about acceptance of pt post Inpatient Acute Rehab. [facility] states that they are interested in accepting him and would have to work with [facility] upon their discharge to coordinate transfer. [facility] states that DCP could inform [facility] of their ability to accept post discharge from [facility]. DCP contacted Nickolas @ [facility] and informed him of this plan. Nickolas states that he will send for medical review to his medical delivery driver and if approved, Nickolas will start insurance authorization. Nickolas requested OT note and recent progress note. DCP faxed that over. Nickolas to contact DCP once decision is made. DCP to continue to follow Roya More RN/GISSELLE
[2022-06-08] MEDS: fentaNYL 12 MCG/PATCH TOP (12:15)
--- NOTE | 2022-06-08 18:46 | P.PN_ITS ---
Subjective Subjective Date Patient Seen: 06/08/22 Time Patient Seen: 18:46 Interval history: Patient continues to complain of tooth pain. He says pain medications take the edge off Consult for Dentistry placed. Likely will happen Saturday Exam Vital Signs (past 8 hours): Oxygen Delivery Method Room Air Oxygen Flow Rate 0 Narrative Exam Narrative: ill appearing male lying in bed Resp Other: Lungs: clear to ausculatation Cardio Other: CV: RRR nl Sl S2 GI Other: Abd: soft/ non tender/ no ndistended Extrem Other: Right hand with edema Objective Labs Result Diagrams: 05/23/22 21:21 05/26/22 11:03 [facility] Medical History Asthma Chronic back pain greater than 3 months duration Closed intertrochanteric fracture of left femur Depression Drug abuse, IV History of CVA (cerebrovascular accident) Surgical History History of hernia repair Family History Father Unknown family medical history Mother No problems noted. Grandmother Myocardial infarction Grandfather No problems noted. Social History household members: friend(s) Smoking Status: Current some day smoker alcohol intake: current Assessment & Plan Assessment & Plan narrative: Weakness Patient appears to be chronically debilitated.? No evidence of new stroke on 2 different brain MRIs.? C-spine MRI did reveal some chronic pathology but no acute cord compression.? Orthopedic surgery consulted and recommended outpatient follow-up with Neurosurgery.? Acetylcholine antibodies and?DIXIE negative.? Remains on cymbalta since 05/18.? Gabapentin initiated 05/21.? Continues to have pain which the norco helps but wears off after 3 hours. Change norco to q3h instead of q4h. -also started on gabapentin, increased further to 400 mg TID. Start fentanyl patch today to see if baseline pain can be improved. -will start on scheduled ativan for continued spasticity. -recommend outpatient neurology -given improved functional status, will attempt Acute rehab transfer -continue PT/OT 2. Altered mental status / metabolic encephalopathy, improved. Patient appears to be at baseline.? No evidence for withdrawal presently.? He is working with therapies on a daily basis and is slowly improving. Depression/?Suicidal ideation psych consultation pending Dr. Richmond saw the patient, no active suicidal ideation Medication adjustement noted Duloxetine increased to 60 mg daily 3. Hypertension Presently normotensive, not on therapy. 4. Hyperlipidemia Continue atorvastatin 5. Polysubstance dependence Although patient was intoxicated on admission, he has been?hospitalized for over 25 days.? There was evident concern early on that people were bringing c ontrolled substances into the hospital.? However,? he has had restricted visitation since that time. 6.? Prior stroke with residual right-sided weakness Patient remains on atorvastatin 40 mg, aspirin 81 mg. 7. Microcytic anemia MCV is up to 71.? Hemoglobin is 11.? 8. Hepatitis C Hep C ab positive.? Hep C RNA >1 million.? Will need outpatient f/u. 9. Dental pain ?- ibuprofen prn, no great oral medications available on formulary (orajel for example). ?- given continued pain and severe tenderness, check a facial CT. Consider OMFS consultation with Dr. Vega. -likely will need outpatient evaluation -lortab for pain -Dr. Vega consulted to evaluate on Saturday Time Spent With Patient Critical Care time: I spent a total of [] minutes of critical care time on this patient's care today; this time is exclusive of procedural time. Quality VTE Deep Vein Thrombosis/Pulmonary Embolism Present on Admission: No
[2022-06-08] MEDS: ATORVASTATIN 20 MG TABLET 40 MG PO (20:47)
[2022-06-08 20:57] VITALS: BP 105/64; PULSE 78; RESP 16; TEMP 36.6; O2SAT 96
[2022-06-08] MEDS: LORazepam 0.5 MG TABLET PO (22:06)
[2022-06-09] MEDS: HYDROCODONE/ACET 5/325 TABLET 1 TAB PO ×2 (01:10→05:53)
[2022-06-09 07:00] VITALS: BP 113/64; PULSE 62; RESP 18; TEMP 35.8; O2SAT 95
[2022-06-09] MEDS: ASPIRIN EC 81 MG TABLET PO (09:07)
[2022-06-09] MEDS: ENOXAPARIN 40 MG/0.4 ML SYRINGE SUBCUT (09:07)
[2022-06-09] MEDS: PANTOPRAZOLE DR 40 MG TABLET PO ×2 (09:07→20:14)
[2022-06-09] MEDS: MULTIVITAMIN 1 TABLET 1 TAB PO (09:07)
[2022-06-09] MEDS: HYDROCODONE/ACET 5/325 TABLET 2 TAB PO ×3 (09:08→20:14)
[2022-06-09] MEDS: DOCUSATE 100 MG CAPSULE PO ×2 (09:08→20:13)
[2022-06-09] MEDS: DULOXETINE 30 MG CAPSULE 60 MG PO (09:09)
[2022-06-09] MEDS: IBUPROFEN 400 MG TABLET 600 MG PO ×3 (09:09→20:17)
[2022-06-09] MEDS: GABAPENTIN 400 MG CAPSULE PO ×3 (09:10→20:13)
[2022-06-09] MEDS: FOLIC ACID 1 MG TABLET PO (09:10)
[2022-06-09] MEDS: LORazepam 0.5 MG TABLET PO ×2 (09:13→20:17)
--- NOTE | 2022-06-09 09:18 | OT.IP.TRT ---
Current Diagnoses Depression, unspecified (05/01/22) Cerebral infarction, unspecified (05/01/22) Spinal stenosis, cervical region (05/01/22) Occupational Therapy Treatment Note M2 OT-IP Current Condition Start: 05/07/22 12:13 Freq: Status: Active Protocol: Document 05/07/22 12:13 CGR (Rec: 05/07/22 12:37 CGR [id number]) Occupational Therapy Current Condition Current Condition Evaluation Date 05/07/22 Treatment Diagnosis generalized weakness, hx IV drug use, R CVA 2016 Diagnosis Onset Date 05/01/22 M3 OT- IP Subjective and Pain Start: 05/07/22 12:13 Freq: Status: Active Protocol: Document 06/09/22 09:21 [facility] (Rec: 06/09/22 09:29 [facility] [id number]) OT- Subjective Occupational Therapy Visit Type Type Treatment Note Visit Start Time 08:47 Visit Stop Time 09:18 Total Visit Minutes 31 Occupational Therapy Visit Comments Patient Comments Pt still having severe tooth pain but agreed to work with OT. Patient/Caregiver Goals TO get better. OT Pain Assessment Pain When Pain Assessed At Rest Pain Present Pain Present Pain Reported Location teeth Intensity 10 Scale Used Numeric (0 - 10) M4 OT- IP ADL's Start: 05/07/22 12:13 Freq: Status: Active Protocol: Document 06/09/22 09:21 [facility] (Rec: 06/09/22 09:29 [facility] [id number]) OT [id number] Comments OT Self-Feeding Comments NOt at meal time. Pt states able to handle the hot liquids better with the paper cups with sleeve and lid on top. OT ADL-Grooming General Evaluation Grooming Ability Standby Assistance Comments OT Grooming Comments Pt able to wash his face after set-up. OT ADL-Oral Care General Eval Oral Care Ability Standby Assistance Areas of Assistance Retrieving/Set-Up of Items Comments Oral Care Comments Pt able to use toothbrush to brush his mouth out with his left hand. OT ADL-Dressing Comments OT Dressing Comments not performed OT ADL-Toileting General Evaluation Toileting Ability Maximum Assistance Areas Needing Assistance Manage Clothing Comments OT Toileting Comments Pt needing assist to unfasten right side of his brief and initially needing assist to place the urinal in place. Able to practice with pt so eventually able to use the urinal by himself. Spoke to nursing aid to encourage pt and assist pt so able to be more independent with his toileting needs. OT ADL-Bathing Comments OT Bathing Comments NOt performed. M6 OT- IP Functional Cognition Start: 05/07/22 12:13 Freq: Status: Active Protocol: Document 06/09/22 09:21 [facility] (Rec: 06/09/22 09:29 [facility] [id number]) Cognitive Factors Limiting Selfcare Function Cognitive Comments Cognitive Assessment Comments Pt in lots of pain however still willing to participate in therapy. M8 OT- IP Objective Assessments Start: 05/07/22 12:13 Freq: Status: Active Protocol: Document 06/09/22 09:21 [facility] (Rec: 06/09/22 09:29 [facility] [id number]) OT- Coordination Assessment Comments Coordination Comments Able to to gentle strstching to pt's RUE and encourage pt to keep his right arm to his side versus internally roatated and resting on his chest. OT-Muscle Tone Assessment Comments Muscle Tone Comments increased tone RUE M9 OT- IP Assessment and Plan Start: 05/07/22 12:13 Freq: Status: Active Protocol: Document 06/09/22 09:21 [facility] (Rec: 06/09/22 09:29 [facility] [id number]) OT Summary Assessment and Plan Potential Rehabilitation Potential Good Analytic Complexity at Evaluation High Summary OT Impairments Pain,Strength,Balance, Coordination,Functional Cognition,Functional Mobility, Self-Feeding,Grooming,Dressing ,Toileting,Bathing,Toilet Transfers,Shower Transfers, Activity Tolerance Progress Towards Goals Slow Progress due to Pain,Slow Progress due to Medical Issues Assessment Summary Pt still having severe tooth pain at this time. Pt however still motivated to be able to do more for himself and try to get better. Pt will still greatly benefit from acute rehab versus skilled rehab at this time. Goals Self-Feeding Goal Standby Assistance Grooming Goal Minimal Assistance Dressing Goal Moderate Assistance Toileting Goal Moderate Assistance Bathing Goal Moderate Assistance Toilet Transfer Goal Minimal Assistance Shower Transfer Goal Minimal Assistance Days to Meet Goals 40 Frequency of Treatment Frequency Of Treatment Twice a Day Treatment Plan OT Treatment Plan ADL Training,Functional Cognition Training,Functional Mobility,Neuromuscular Re- education,Therapeutic Exercises,Patient/Family Education,Discharge Planning Discharge Recommendations OT Discharge Recommendations SNF Rehab,Acute Rehab,SNF vs Acute Rehab Transportation Needs at Discharge Wheelchair/Cabulance
--- NOTE | 2022-06-09 10:15 | PT.IPTN ---
Current Diagnoses Depression, unspecified (05/01/22) Cerebral infarction, unspecified (05/01/22) Spinal stenosis, cervical region (05/01/22) Physical Therapy Treatment Note M2 PT-IP Current Condition Start: 05/07/22 09:18 Freq: NEEDED Status: Active Protocol: Document 05/18/22 13:22 SP (Rec: 05/18/22 16:05 SP [id number]) Physical Therapy Current Condition Current Condition Evaluation Date 05/07/22 Treatment Diagnosis metabolic encephalopathy; polysubstance withdrawal; impaired mobility Onset Date 04/30/22 M3 PT-IP Subjective Start: 05/07/22 09:18 Freq: NEEDED Status: Active Protocol: Document 06/09/22 10:15 AB (Rec: 06/09/22 13:01 AB [id number]) Subjective Physical Therapy Visit Type Type Treatment Note Visit Start Time 10:15 Visit Stop Time 11:10 Total Visit Minutes 55 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 Physical Therapy Visit Comments Patient Comments agreeable to do PT Therapy Pain Assessment Pain When Pain Assessed At Rest Pain Present Pain Present Pain Reported Location teeth Intensity 10 Scale Used Numeric (0 - 10) Pain Management Techniques Distraction,Modification of Treatment M4 PT-IP Mobility and Gait Start: 05/07/22 09:18 Freq: NEEDED Status: Active Protocol: Document 06/09/22 10:15 AB (Rec: 06/09/22 13:01 AB [id number]) PT-Bed Mobility Assessment Supine to Sit Supine to Sit Maximum Assistance Scooting Scooting to Edge of Bed Maximum Assistance PT-Transfer Assessment Sit to and From Stand Sit to and from Stand Maximum Assistance,2 Person Assistance,Use of Upper Extremities Equipment Transfer Assistive Device Platform Walker Orthotic/Prosthetic Devices or Brace: No Transfers Transfer Destination Chair Transfer Technique Stand Step Pivot Transfer Ability Level of Assist Maximum Assistance,2 Person Assistance,Use of Upper Extremities Comments Mobility Comments pt supine in bed and agreeable to do PT. Assessed LE strength in supine. able to complete RLE heel slides but with increase hip ER. able to straighten RLE agains manual resistance with unable to sustain ms contraction. (+) R achilles tendon tightness and has RLE foot drop. educated pt on HEP: quads sets and R ankle movement as tolerated co-tx with OT conducted part of tx session due to pt's complex condition requiring 2 person to assist ( one to stabilize pt and another to assist with mobility). completed supine to sit max A and max cues. increase posterior trunk lean requiring mod to max A and max cues. educated on posture and trunk control in sitting. Sitting balance/tolerance activity conducted: stated sitting and sustaining upright midline posture x 4 attempts and able to sustain sitting balance without assistance for ~ 15 to 20 sec. attempted to maintain sitting balance for 1 min but requires max cues for posture correction/righting reaction and longest time able to maintain was ~ 20 sec. instructed pt with scooting to EOB and pt tends to lose balance posteriorly during scooting. educated pt on trunk control and techniques for scooting. max A and max cues needed. completed seated push up from EOB with 10 sec hold midway x 4 reps. max A for midline posture and RUE/LE support. Static standing without AD : completed sit to stand max A x 2 with focus on use of RUE/LE , trunk control. pt completed x 3 reps of static standing and focus on standing balance, RLE stability/control and quads contraction and trunk control/midline positon (pt tends to have posterior trunk lean with lateral lean to the R). static standing using PFW: completed sit to stand max A x2. pt able to maintain standing balance using PFW mod A x 2 to max A x 2 with assist for trunk control, RLE stability and maintaining upright posture. educated pt on importance of trunk control to be able to progress with bed mobility, transfers and ambulation. pt understood and willing to work . pt completed step transfer to chair using PFW max A x 2 and max cues : emphasis on upright posture, RLE movement and control. positioned pt on the chair. call light and table placed within reach. PT-Balance Assessment Sitting Balance and Reactions Static Sitting Balance Ability Poor Dynamic Sitting Balance Ability Poor Standing Balance and Reactions Static Standing Balance Ability Poor Dynamic Standing Balance Ability Poor Device Used PFW M5 PT-IP Objective Assessments Start: 05/07/22 09:18 Freq: NEEDED Status: Active Protocol: Document 05/07/22 11:05 AW (Rec: 05/07/22 13:30 AW [id number]) Orientation Orientation/Cognition Level of Alertness Lethargic Orientation Name,Month,Place Safety Awareness Decreased Safety Awareness Gross Range of Motion Lower Extremity ROM Assessment Within Functional Limits Strength Lower Extremity Strength Assessment Bilaterally Impaired Comments Strength Comments R grossly 3-/5. L grossly 3+/5 Coordination Assessment Gross Coordination Gross Coordination Impaired Assessment Finger to Nose Test Activity Impossible Foot Tapping Test Minimal Impairment Coordination Comments Pt limited by BUE weakness with UE coordination testing. Sensation Assessment Sensation Gross Sensation WNL Muscle Tone Muscle Tone WNL Yes M6 PT-IP Treatment Start: 05/07/22 09:18 Freq: NEEDED Status: Active Protocol: Document 06/09/22 10:15 AB (Rec: 06/09/22 13:01 AB [id number]) Physical Therapy Treatment Exercises Exercises Ankle Pumps,Quad Sets,Heel Slides Education Education Provided Safety M7 PT-IP Assessment and Plan Start: 05/07/22 09:18 Freq: NEEDED Status: Active Protocol: Document 06/09/22 10:15 AB (Rec: 06/09/22 13:01 AB [id number]) PT Summary Assessment and Plan Potential Rehabilitation Potential Fair Summary Impairments Pain,ROM,Strength,Balance, Coordination,Sensation,Tone, Cognition,Bed Mobility, Transfers,Gait,Activity Tolerance Progress Towards Goals Slow Progress due to Medical Issues,Slow Progress due to Activity Tolerance Assessment Summary Pt is motivated and participated well during PT session. Pt continues to require 2 person assist with mobility and emphasis on trunk control as well as RUE/LE use and control during mobility. pt will benefit from acute rehab vs SNF to improve strength and mobility independence. Goals Bed Mobility Goal Contact Guard Assistance Transfer Goal Moderate Assistance Gait Goal Moderate Assistance Gait Distance 100 Other Goals transfers and ambulation using PFW/hemiwalker Days to Meet Goals 10 Frequency of Treatment Frequency Of Treatment Once a Day Treatment Plan Physical Therapy Treatment Plan Bed Mobility Training,Transfer Training,Gait Training, Therapeutic Exercise,Balance Retraining,Discharge Planning, Hot or Cold Pack,Neuromuscular Re-ed,Coordination Retraining Other Recommendations and Next Treatment sitting balance/tolerance; Focus trunk exercises; standing balance/tolerance Precautions Other Precautions seizure precautions; falls risk Recommendations To Nursing Amount of Assist Needed 2 Person Assist Discharge Recommendations PT Discharge Recommendations SNF Rehab,Acute Rehab,SNF vs Acute Rehab Transportation Needs at Discharge Wheelchair/Cabulance
--- NOTE | 2022-06-09 10:22 | CM.DPC ---
DCP Cont: Checked in with [facility]. Spoke to Angel, who is advisory application developer in admissions this week-end. He indicated that case is still under review, will have to speak to the medical imaging technologist. Gave him the name and number of this [facility] [employer]. May also send out an email to Maria Fernanda Shashi, for she indicated that she has a team that also assists with placement. P: DCP to continue to work on discharge plan. At this time, it is noted that [facility] has declined due to concerns of his history of drugs and smoking, [facility] has not yet responded, and [facility] has declined due to patient not having an accepting facility to go to after rehab. Claudia Segal RN/Fish Tender
--- NOTE | 2022-06-09 11:15 | OT.IP.TRT ---
Current Diagnoses Depression, unspecified (05/01/22) Cerebral infarction, unspecified (05/01/22) Spinal stenosis, cervical region (05/01/22) Occupational Therapy Treatment Note M2 OT-IP Current Condition Start: 05/07/22 12:13 Freq: Status: Active Protocol: Document 05/07/22 12:13 CGR (Rec: 05/07/22 12:37 CGR [id number]) Occupational Therapy Current Condition Current Condition Evaluation Date 05/07/22 Treatment Diagnosis generalized weakness, hx IV drug use, R CVA 2015 Diagnosis Onset Date 05/01/22 M3 OT- IP Subjective and Pain Start: 05/07/22 12:13 Freq: Status: Active Protocol: Document 06/09/22 11:17 [facility] (Rec: 06/09/22 11:26 [facility] [id number]) OT- Subjective Occupational Therapy Visit Type Type Treatment Note Visit Start Time 10:39 Visit Stop Time 11:15 Total Visit Minutes 37 Occupational Therapy Visit Comments Patient Comments Able to cotxt with PT for sitting balance, trunk control and incorporation with RUE needs. Patient/Caregiver Goals TO get better OT Pain Assessment Pain When Pain Assessed At Rest Pain Present Pain Present Pain Reported M6 OT- IP Functional Cognition Start: 05/07/22 12:13 Freq: Status: Active Protocol: Document 06/09/22 11:17 [facility] (Rec: 06/09/22 11:26 [facility] [id number]) Cognitive Factors Limiting Selfcare Function Cognitive Comments Cognitive Assessment Comments Pt very motivated to participate in therpay session with OT/PT. M7 OT- IP Mobility and Balance Start: 05/07/22 12:13 Freq: Status: Active Protocol: Document 06/09/22 11:17 [facility] (Rec: 06/09/22 11:26 [facility] [id number]) OT-Transfer Assessment Sit to and From Stand Sit to and from Stand Moderate Assistance,Maximum Assistance,1 Person Assistance ,2 Person Assistance Transfers Transfer Ability Moderate Assistance,Maximum Assistance,2 Person Assistance Technique Transfer Destination Bed,Chair Transfer Technique Stand Step Pivot Devices Transfer Assistive Devices Gait Belt,Front Wheeled Walker Comments Mobility Comments Pt needing assist for RUE control to assist to stand and assist of another to come to stand. Transfer with RUE platform walker MODA/MAXA X2, assist to move the FWW, assist for balance, and cues to control his RLE and trunk,. Educating pt to move with more control especially during movement to scoot. Pt getting a better idea of moving in increment versus overshooting his movements. OT- Balance Assessment Sitting Balance and Reactions Static Sitting Balance Ability Fair Dynamic Sitting Balance Ability Poor Standing Balance and Reactions Static Standing Balance Ability Poor Dynamic Standing Balance Ability Poor Comments Other Balance Tests/Deviations/Treatment Able to work on stretch into : anterior tilt and sitting balance to midline. Pt still needing cues to correct but having a better awareness to be able to correct his posture . M8 OT- IP Objective Assessments Start: 05/07/22 12:13 Freq: Status: Active Protocol: Document 06/09/22 09:21 [facility] (Rec: 06/09/22 09:29 [facility] [id number]) OT- Coordination Assessment Comments Coordination Comments Able to to gentle stretching to pt's RUE and encourage pt to keep his right arm to his side versus internally rotated and resting on his chest. OT-Muscle Tone Assessment Comments Muscle Tone Comments increased tone RUE M9 OT- IP Assessment and Plan Start: 05/07/22 12:13 Freq: Status: Active Protocol: Document 06/09/22 11:17 [facility] (Rec: 06/09/22 11:26 [facility] [id number]) OT Summary Assessment and Plan Potential Rehabilitation Potential Good Analytic Complexity at Evaluation High Summary OT Impairments Pain,Strength,Balance, Coordination,Functional Cognition,Functional Mobility, Self-Feeding,Grooming,Dressing ,Toileting,Bathing,Toilet Transfers,Shower Transfers, Activity Tolerance Progress Towards Goals Progressing Toward Goals,Slow Progress due to Pain,Slow Progress due to Medical Issues Assessment Summary Pt able to tolerate sitting and standing balance today and not needing as many rest breaks during OT/PT treatment. Pt will still greatly benefit from acute rehab as able to tolerate 2 session of OT today and very motivated to participate even though he is having severe tooth pain. Goals Self-Feeding Goal Standby Assistance Grooming Goal Minimal Assistance Dressing Goal Moderate Assistance Toileting Goal Moderate Assistance Bathing Goal Moderate Assistance Toilet Transfer Goal Minimal Assistance Shower Transfer Goal Minimal Assistance Days to Meet Goals 40 Frequency of Treatment Frequency Of Treatment Twice a Day Treatment Plan OT Treatment Plan ADL Training,Functional Cognition Training,Functional Mobility,Neuromuscular Re- education,Therapeutic Exercises,Patient/Family Education,Discharge Planning Discharge Recommendations OT Discharge Recommendations Acute Rehab,SNF vs Acute Rehab Transportation Needs at Discharge Wheelchair/Cabulance
--- NOTE | 2022-06-09 15:34 | P.PN_ITS ---
Subjective Subjective Date Patient Seen: 06/09/22 Interval history: 62-year-old gentleman with underlying substance dependence, stroke with right- sided weakness, depression, chronic back pain, and asthma who is presently hospital day number 39 initially admitted with concern for worsening stroke symptoms and altered mental status. He has had a prolonged hospitalization related to his overall weakness and delays in getting him placed. Patient reports he has had pain in his mouth and gum for the last week. He has been receiving hydrocodone but notes it has just been sufficient with controlling his symptoms. He states the pain in his tooth and jaw is making his neck pain worse. He states prior to the onset of the pain, he was feeling better overall. He states he felt his antidepressant was ?. He states his appetite was improving. He is asking for Cheetos this am. Exam Vital Signs (past 8 hours): Oxygen Delivery Method Room Air Oxygen Flow Rate 0 Narrative Exam Narrative: GEN:? Middle-aged male, Alert and oriented x 3, appears uncomfortable HEENT:NC, Face symmetric, he is a centrally dentulous though it appears multiple teeth have been broken off the gum line, the painful area is in his right lower jaw, he has another spot in the left anterior lower jaw as well. No significant erythema or exudate noted, but he is tender to palpation CHEST: Respiratory excursions symmetric, CTAB CV: RRR, no M/R/G ABD: Soft, NT/ND, BT present in all 4 quadrants, no organomegaly or masses EXTR: warm, well perfused, no C/C/E, right upper extremity remains weak, poor mobility SKIN: warm and dry, no rash NEURO: Alert and oriented x 3, persistent right upper extremity weakness Objective Labs Result Diagrams: 05/23/22 21:21 05/26/22 11:03 REPLACED BY [facility] Medical History Asthma Chronic back pain greater than 3 months duration Closed intertrochanteric fracture of left femur Depression Drug abuse, IV History of CVA (cerebrovascular accident) Surgical History History of hernia repair Family History Father Unknown family medical history Mother No problems noted. Grandmother Myocardial infarction Grandfather No problems noted. Social History household members: friend(s) Smoking Status: Current some day smoker alcohol intake: current Assessment & Plan Assessment & Plan narrative: 1. Dental pain Patient has multiple fractured teeth with just the root remaining in place. He has not had any labs done since onset of the symptoms. Facial CT was done slight Welchol which revealed tiny residual roots of the lateral mandibular incisors and canines with adjacent periapical lucency. No lytic or destructive lesion in the mandible. No maxillary teeth present. No acute soft tissue findings. The periapical lucency could be consistent with dental abscess. Will add oral antibiotics and increase hydrocodone from 1 tab to 2 tabs q.[address] barrera arranged for a dental consult on Saturday. 2. Generalized weakness Patient is chronically debilitated. This admission he underwent 2 brain MRIs which for stroke, C-spine MRI with chronic pathology but no acute cord compression. Remainder of workup was otherwise unremarkable. He was initiated on Cymbalta 05/18 and gabapentin 05/21 with good results. Patient's weakness is improving per report. 3. Hypertension Blood pressures remain normotensive. He is not treated at baseline. 4. Hyperlipidemia Continue atorvastatin. 5. Polysubstance dependence Stable at this time. 6. Prior stroke with residual right-sided weakness Continue aspirin and atorvastatin 7. Microcytic anemia Thalassemia screen was done earlier in this hospitalization. Results were reportedly fax though I have not found documentation of those results. Will attempt to obtain them further. 8. Hepatitis-C Positive hep C antibody and hep C RNA greater than 1,000,000. Will need outpatient follow-up. Resolved issues: Altered mental status/metabolic encephalopathy Oral thrush Acute respiratory failure due to pneumonia Pneumonia Time Spent With Patient Critical Care time: I spent a total of [] minutes of critical care time on this patient's care today; this time is exclusive of procedural time. Quality VTE Deep Vein Thrombosis/Pulmonary Embolism Present on Admission: No
--- NOTE | 2022-06-09 16:16 | PC.NURSE ---
Pt A/O, sitting in chair most of day, Taking pain meds as per scheduled Pt has decided that he would like a visitor. That visitor will be [id number] Carlie Bertrand if approved. Condition remains essentially unchanged. Call light w/in reach, chair alarm on for pt safety. Continue w/plan of care.
[2022-06-09] MEDS: CLINDAMYCIN 150 MG CAPSULE 450 MG PO (16:46)
[2022-06-09] MEDS: SENNOSIDES 8.6 MG TABLET PO (20:14)
[2022-06-09] MEDS: ATORVASTATIN 20 MG TABLET 40 MG PO (20:14)
[2022-06-09] MEDS: LORazepam 1 MG TABLET 0.5 MG PO (20:17)
[2022-06-09 22:20] VITALS: BP 120/65; PULSE 68; RESP 17; TEMP 35.9; O2SAT 96
[2022-06-10] MEDS: CLINDAMYCIN 150 MG CAPSULE 450 MG PO ×3 (00:42→15:48)
[2022-06-10] MEDS: HYDROCODONE/ACET 5/325 TABLET 2 TAB PO ×5 (00:43→21:54)
--- NOTE | 2022-06-10 05:35 | PM.PN.1 ---
Subjective Subjective Date Patient Seen: 06/10/22 Interval history: 62-year-old gentleman with underlying substance dependence, stroke with right-sided weakness, depression, chronic back pain, and asthma who is presently hospital day number 40 initially admitted with concern for worsening stroke symptoms and altered mental status.? He has had a prolonged hospitalization related to his overall weakness and delays in getting him placed. On June 09, Patient reported he has had pain in his mouth and gum for the last week.? He had been receiving hydrocodone but noted it has just been sufficient with controlling his symptoms.? He states the pain in his tooth and jaw was making his neck pain worse.? He states prior to the onset of the pain, he was feeling better overall.? He states he felt his antidepressant was working well.? He states his appetite was improving.? He was initiated on oral clindamycin last evening due to periapical lucencies seen on his facial CT. Oral benzocaine was also obtained for as needed use. Hydrocodone was increased to 2 tabs q.3 hours as needed. Reports he feels about the same today as yesterday. Continues to describe pain in the gum line. However he does admit he was able to sleep better. At the time of my evaluation he just completed the entirety of a cheeseburger. He did receive Cheetos yesterday and is asking for more today. Exam Vital Signs (past 8 hours): - 06/09/22 22:20 Temperature 96.7 F L Pulse Rate 68 Respiratory Rate 17 Blood Pressure 120/65 Pulse Oximetry 96 Oxygen Flow Rate 0 Oxygen Delivery Method Room Air Oxygen Flow Rate 0 Narrative Exam Narrative: GEN:? Middle-aged male, Alert and oriented x 3, appears uncomfortable HEENT:NC, Face symmetric, he is essentially edentulous though it appears multiple teeth have been broken off the gum line, the painful area is in his right lower jaw, he has another spot in the left anterior lower jaw as well.? No significant erythema or exudate noted, but he is tender to palpation, there appears to be some mild swelling about the left anterior painful area CHEST: Respiratory excursions symmetric, CTAB CV: RRR, no M/R/G ABD: Soft, NT/ND, BT present in all 4 quadrants, no organomegaly or masses EXTR: warm, well perfused, no C/C/E, right upper extremity remains weak, poor mobility SKIN: warm and dry, no rash NEURO: Alert and oriented x 3, persistent right upper extremity weakness Objective Labs Result Diagrams: 05/23/22 21:21 05/26/22 11:03 [facility] Medical History Asthma Chronic back pain greater than 3 months duration Closed intertrochanteric fracture of left femur Depression Drug abuse, IV History of CVA (cerebrovascular accident) Surgical History History of hernia repair Family History Father Unknown family medical history Mother No problems noted. Grandmother Myocardial infarction Grandfather No problems noted. Social History household members: friend(s) Smoking Status: Current some day smoker alcohol intake: current Assessment & Plan Assessment & Plan narrative: 1. Dental pain Patient has multiple fractured teeth with just the root remaining in place.? He has not had any labs done since onset of the symptoms.? Facial CT was done June 05 which revealed tiny residual roots of the lateral mandibular incisors and canines with adjacent periapical lucency.? No lytic or destructive lesion in the mandible.? No maxillary teeth present.? No acute soft tissue findings.? The periapical lucency could be consistent with dental abscess.? Started clindamycin last evening. No diarrhea. Tolerating well thus far. Continue hydrocodone for pain. 2. Generalized weakness Patient is chronically debilitated.? This admission he underwent 2 brain MRIs which for stroke, C-spine MRI with chronic pathology but no acute cord compression.? Remainder of workup was otherwise unremarkable.? He was initiated on Cymbalta 05/18 and gabapentin 05/21 with good results.? Patient's weakness is improving per report. 3. Hypertension Blood pressures remain normotensive.? He is not treated at baseline. I am uncertain where the hypertension diagnosis came from. 4. Hyperlipidemia Continue atorvastatin. 5. Polysubstance dependence Currently in remission 6. Prior stroke with residual right-sided weakness Continue aspirin and atorvastatin 7. Microcytic anemia Thalassemia screen was done earlier in this hospitalization.? Results were reportedly faxed though I have not found documentation of those results.? Will attempt to obtain them further. 8. Hepatitis-C Positive hep C antibody and hep C RNA greater than 1,000,000.? Will need outpatient follow-up. Resolved issues: Altered mental status/metabolic encephalopathy Oral thrush Acute respiratory failure due to pneumonia Pneumonia Time Spent With Patient Critical Care time: I spent a total of [] minutes of critical care time on this patient's care today; this time is exclusive of procedural time. Quality VTE Deep Vein Thrombosis/Pulmonary Embolism Present on Admission: No
[2022-06-10 07:00] VITALS: BP 114/67; PULSE 70; RESP 18; TEMP 35.6; O2SAT 95
[2022-06-10] MEDS: ENOXAPARIN 40 MG/0.4 ML SYRINGE SUBCUT (09:32)
[2022-06-10] MEDS: NICOTINE 7 MG PATCH TOP (09:33)
[2022-06-10] MEDS: MULTIVITAMIN 1 TABLET 1 TAB PO (09:33)
[2022-06-10] MEDS: ASPIRIN EC 81 MG TABLET PO (09:33)
[2022-06-10] MEDS: FOLIC ACID 1 MG TABLET PO (09:34)
[2022-06-10] MEDS: SENNOSIDES 8.6 MG TABLET PO ×2 (09:36→21:54)
[2022-06-10] MEDS: DULOXETINE 30 MG CAPSULE 60 MG PO (09:37)
[2022-06-10] MEDS: IBUPROFEN 400 MG TABLET 600 MG PO ×3 (09:38→21:54)
[2022-06-10] MEDS: PANTOPRAZOLE DR 40 MG TABLET PO ×2 (09:38→21:56)
[2022-06-10] MEDS: DOCUSATE 100 MG CAPSULE PO ×2 (09:39→21:54)
[2022-06-10] MEDS: GABAPENTIN 400 MG CAPSULE PO ×3 (09:39→21:54)
[2022-06-10] MEDS: LORazepam 0.5 MG TABLET PO (09:55)
[2022-06-10] MEDS: ORAJEL 1 EACH TOP ×2 (15:45→21:53)
[2022-06-10] MEDS: SCOPOLAMINE 1 PATCH TOP (15:47)
[2022-06-10] MEDS: ATORVASTATIN 20 MG TABLET 40 MG PO (21:54)
[2022-06-10] MEDS: LORazepam 1 MG TABLET 0.5 MG PO (22:06)
[2022-06-10 22:25] VITALS: BP 113/65; PULSE 71; RESP 18; TEMP 36.4; O2SAT 95
[2022-06-11] MEDS: HYDROCODONE/ACET 5/325 TABLET 2 TAB PO ×6 (02:19→22:02)
[2022-06-11] MEDS: CLINDAMYCIN 150 MG CAPSULE 450 MG PO ×3 (02:19→15:31)
--- NOTE | 2022-06-11 05:10 | P.PN_ITS ---
Subjective Subjective Date Patient Seen: 06/11/22 Interval history: 62-year-old gentleman with underlying substance dependence, stroke with right- sided weakness, depression, chronic back pain, and asthma who is presently hospital day number 40 initially admitted with concern for worsening stroke symptoms and altered mental status.? He has had a prolonged hospitalization related to his overall weakness and delays in getting him placed.? On June 09, Patient reported he has had pain in his mouth and gum for the last week.? He had been receiving hydrocodone but noted it has just been sufficient with controlling his symptoms.? He states the pain in his tooth and jaw was making his neck pain worse.? He states prior to the onset of the pain, he was feeling better overall.? He states he felt his antidepressant was working well.? He states his appetite was improving.? He was initiated on oral clindamycin on the evening of June 09 due to periapical lucencies seen on his facial CT.? Oral benzocaine was also obtained for as needed use.? He reports that has been helpful. Hydrocodone was increased to 2 tabs q.3 hours as needed.? Reports he feels about the same today as yesterday.? Continues to describe pain in the gum line.? He states he does not feel that antibiotics have made much difference. He is looking forward to seeing the oral surgeon today. Exam Vital Signs (past 8 hours): - 06/10/22 22:25 Temperature 97.5 F L Pulse Rate 71 Respiratory Rate 18 Blood Pressure 113/65 Pulse Oximetry 95 Oxygen Flow Rate 0 Oxygen Delivery Method Room Air Oxygen Flow Rate 0 Narrative Exam Narrative: GEN:? Middle-aged male, Alert and oriented x 3, appears uncomfortable, sitting up in a chair HEENT:NC, Face symmetric, he is essentially edentulous though it appears multiple teeth have been broken off the gum line, the painful area is in his right lower lower jaw and anterior lower jaw. Obvious erythema/exudate/induration/fluctuance. CHEST: Respiratory excursions symmetric, CTAB CV: RRR, no M/R/G ABD: Soft, NT/ND, BT present in all 4 quadrants, no organomegaly or masses EXTR: warm, well perfused, no C/C/E, right upper extremity remains weak, poor mobility lower SKIN: warm and dry, no rash NEURO: Alert and oriented x 3, persistent right upper extremity weakness Objective Labs Result Diagrams: 05/23/22 21:21 05/26/22 11:03 [facility] Medical History Asthma Chronic back pain greater than 3 months duration Closed intertrochanteric fracture of left femur Depression Drug abuse, IV History of CVA (cerebrovascular accident) Surgical History History of hernia repair Family History Father Unknown family medical history Mother No problems noted. Grandmother Myocardial infarction Grandfather No problems noted. Social History household members: friend(s) Smoking Status: Current some day smoker alcohol intake: current Assessment & Plan Assessment & Plan narrative: 1. Dental pain Patient has multiple fractured teeth with just the root remaining in place.? Facial CT was done June 05 which revealed tiny residual roots of the lateral mandibular incisors and canines with adjacent periapical lucency.? No lytic or destructive lesion in the mandible.? No maxillary teeth present.? No acute soft tissue findings.? The periapical lucency could be consistent with dental abscess.? Started clindamycin on the evening of June 09.? No diarrhea.? Tolerating well thus far.? Continue hydrocodone and benzocaine for pain. 2. Generalized weakness Patient is chronically debilitated.? This admission he underwent 2 brain MRIs which for stroke, C-spine MRI with chronic pathology but no acute cord compression.? Remainder of workup was otherwise unremarkable.? He was initiated on Cymbalta 05/18 and gabapentin 05/21 with good results.? Patient's weakness is improving per report. 3. Hypertension Blood pressures remain normotensive.? He is not treated at baseline.? I am uncertain where the hypertension diagnosis came from. 4. Hyperlipidemia Continue atorvastatin. 5. Polysubstance dependence Currently in remission 6. Prior stroke with residual right-sided weakness Continue aspirin and atorvastatin 7. Microcytic anemia Thalassemia screen was done earlier in this hospitalization.? Results were reportedly faxed though I have not found documentation of those results.? Will attempt to obtain them further. 8. Hepatitis-C Positive hep C antibody and hep C RNA greater than 1,000,000.? Will need outpatient follow-up. Resolved issues: Altered mental status/metabolic encephalopathy Oral thrush Acute respiratory failure due to pneumonia Pneumonia Time Spent With Patient Critical Care time: I spent a total of [] minutes of critical care time on this patient's care today; this time is exclusive of procedural time. Quality VTE Deep Vein Thrombosis/Pulmonary Embolism Present on Admission: No
[2022-06-11 07:00] VITALS: BP 112/72; PULSE 62; RESP 18; TEMP 36.1; O2SAT 96
[2022-06-11] MEDS: ENOXAPARIN 40 MG/0.4 ML SYRINGE SUBCUT (09:10)
[2022-06-11] MEDS: PANTOPRAZOLE DR 40 MG TABLET PO ×2 (09:10→22:04)
[2022-06-11] MEDS: ASPIRIN EC 81 MG TABLET PO (09:10)
[2022-06-11] MEDS: IBUPROFEN 400 MG TABLET 600 MG PO ×3 (09:10→22:03)
[2022-06-11] MEDS: FOLIC ACID 1 MG TABLET PO (09:10)
--- NOTE | 2022-06-11 09:10 | OT.IP.TRT ---
Current Diagnoses Depression, unspecified (05/01/22) Cerebral infarction, unspecified (05/01/22) Spinal stenosis, cervical region (05/01/22) Occupational Therapy Treatment Note M2 OT-IP Current Condition Start: 05/07/22 12:13 Freq: Status: Active Protocol: Document 05/07/22 12:13 [facility] (Rec: 05/07/22 12:37 [facility] [id number]) Occupational Therapy Current Condition Current Condition Evaluation Date 05/07/22 Treatment Diagnosis generalized weakness, hx IV drug use, R CVA 2016 Diagnosis Onset Date 05/01/22 M3 OT- IP Subjective and Pain Start: 05/07/22 12:13 Freq: Status: Active Protocol: Document 06/11/22 09:16 [facility] (Rec: 06/11/22 09:25 [facility] [id number]) OT- Subjective Occupational Therapy Visit Type Type Treatment Note Visit Start Time 08:51 Visit Stop Time 09:10 Total Visit Minutes 19 Occupational Therapy Visit Comments Patient Comments Pt just waking up for the morning and agreed to get up. Patient/Caregiver Goals TO get better. OT Pain Assessment Pain When Pain Assessed At Rest Pain Present Pain Present Pain Reported Location teeth Intensity 9 Scale Used Numeric (0 - 10) M4 OT- IP ADL's Start: 05/07/22 12:13 Freq: Status: Active Protocol: Document 06/11/22 09:16 [facility] (Rec: 06/11/22 09:25 [facility] [id number]) OT [id number] Comments OT Self-Feeding Comments Not at meal time. OT ADL-Grooming General Evaluation Grooming Ability Standby Assistance Comments OT Grooming Comments Pt able to wash his face after set-up. OT ADL-Oral Care Comments Oral Care Comments Not performed. OT ADL-Dressing General Eval Lower Body Dressing Ability Maximum Assistance Comments OT Dressing Comments Pt wanting to try to put on his brief while supine versus standing. Pt needing assist to help thread the brief over his RLE and able to get his LLE into the brief on his own with left hand to hold the brief. Pt able to roll side to side and MAX assist to help get the brief up over his hips. OT ADL-Toileting General Evaluation Toileting Ability Maximum Assistance Areas Needing Assistance Manage Clothing Comments OT Toileting Comments After set-up pt able to wash pericare needs, but needing assist for completeness. Pt requesting to have powder on him. Hygiene and brief completed in supine. OT ADL-Bathing Comments OT Bathing Comments NOt performed. M6 OT- IP Functional Cognition Start: 05/07/22 12:13 Freq: Status: Active Protocol: Document 06/11/22 09:16 [facility] (Rec: 06/11/22 09:25 [facility] [id number]) Cognitive Factors Limiting Selfcare Function Cognitive Comments Cognitive Assessment Comments Pt still having lots of pain but agreeable to participate in therapy at this time. M7 OT- IP Mobility and Balance Start: 05/07/22 12:13 Freq: Status: Active Protocol: Document 06/11/22 09:16 [facility] (Rec: 06/11/22 09:25 [facility] [id number]) OT- Bed Mobility Assessment Supine to Sit Supine to Sit Assist Contact Guard Assistance Scooting Scooting to Edge of Bed Maximum Assistance OT-Transfer Assessment Sit to and From Stand Sit to and from Stand Maximum Assistance Transfers Transfer Ability Minimal Assistance,Maximum Assistance,2 Person Assistance Technique Transfer Destination Bed,Chair Transfer Technique Stand Step Pivot Devices Transfer Assistive Devices None,Gait Belt Comments Mobility Comments Pt needing MAX A to assist to scoot to the edge of the bed. MAX AX 1 to stand and then needing another person ROULA for balance as doing stand step pivot to his weaker side. OT- Balance Assessment Sitting Balance and Reactions Static Sitting Balance Ability Fair Dynamic Sitting Balance Ability Poor Standing Balance and Reactions Static Standing Balance Ability Poor Dynamic Standing Balance Ability Poor OT-Muscle Tone Assessment Comments Muscle Tone Comments increased tone RUE M9 OT- IP Assessment and Plan Start: 05/07/22 12:13 Freq: Status: Active Protocol: Document 06/11/22 09:16 [facility] (Rec: 06/11/22 09:25 [facility] [id number]) OT Summary Assessment and Plan Potential Rehabilitation Potential Good Analytic Complexity at Evaluation High Summary OT Impairments Pain,Strength,Balance, Coordination,Functional Cognition,Functional Mobility, Self-Feeding,Grooming,Dressing ,Toileting,Bathing,Toilet Transfers,Shower Transfers, Activity Tolerance Progress Towards Goals Progressing Toward Goals,Slow Progress due to Pain,Slow Progress due to Medical Issues Assessment Summary Pt today agreeing to try brief management needs while in supine. Pt still very motivated to get better and willing to go to acute rehab versus skilled rehab. Goals Self-Feeding Goal Standby Assistance Grooming Goal Minimal Assistance Dressing Goal Moderate Assistance Toileting Goal Moderate Assistance Bathing Goal Moderate Assistance Toilet Transfer Goal Minimal Assistance Shower Transfer Goal Minimal Assistance Days to Meet Goals 40 Frequency of Treatment Frequency Of Treatment Twice a Day Treatment Plan OT Treatment Plan ADL Training,Functional Cognition Training,Functional Mobility,Neuromuscular Re- education,Therapeutic Exercises,Patient/Family Education,Discharge Planning Discharge Recommendations OT Discharge Recommendations Acute Rehab,SNF vs Acute Rehab Transportation Needs at Discharge Wheelchair/Cabulance
[2022-06-11] MEDS: GABAPENTIN 400 MG CAPSULE PO ×3 (09:15→22:03)
[2022-06-11] MEDS: MULTIVITAMIN 1 TABLET 1 TAB PO (09:15)
[2022-06-11] MEDS: SENNOSIDES 8.6 MG TABLET PO ×2 (09:15→22:15)
[2022-06-11] MEDS: DOCUSATE 100 MG CAPSULE PO ×2 (09:15→22:05)
[2022-06-11] MEDS: DULOXETINE 30 MG CAPSULE 60 MG PO (09:15)
[2022-06-11] MEDS: LORazepam 0.5 MG TABLET PO ×2 (09:23→22:15)
--- NOTE | 2022-06-11 09:37 | CM.DPC ---
Addendum entered by Claudia Segal R.N. 06/11/22 15:43: Spoke to Angel at [facility], and he indicated, they have no beds, and are short of staff, so will not be able to accept patient at this time, but can keep on their list. Addendum entered by Claudia Segal R.N. 06/11/22 13:08: Called [facility] in [place]. Spoke to Giuliana, data base administrator. She indicated, she did get referral, but would need to come and see patient. She indicated that she does not have her workers compensation legal secretary currently available, and can't leave to come and assess patient until early June. Asked her to keep patient on the list for the assessment, in case no other facilities are able to be found. She indicated that they do allow smoking at their facility, and can smoke marijuana outside. Her main concerns are his IV drug use history. Will plan on following up with her later this month. Spoke to Maxi at [facility], and she stated that her nurse will review, and she will update this [place] Community Support Associate. Left a message with Stacy at [facility] as well. Original Note: DCP: Maria Fernanda Shashi, patient's [facility] case manage responded to this [place] Community Support Associate's email asking if she could ask her team to assist in searching for facilities. She wanted to know which [facility]. Asked her to do searches in [facility], [facility], [facility], [place], and [facility]. This [place] Community Support Associate will also work on case today. Have not yet heard back from [facility] or [facility]. P: DCP to continue to work on discharge. Claudia Segal, RN/Hoisting Engineer
[2022-06-11] MEDS: fentaNYL 12 MCG/PATCH TOP (11:53)
[2022-06-11] MEDS: ORAJEL 1 EACH TOP (11:55)
--- NOTE | 2022-06-11 14:44 | PT.IPTN ---
Current Diagnoses Depression, unspecified (05/01/22) Cerebral infarction, unspecified (05/01/22) Spinal stenosis, cervical region (05/01/22) Physical Therapy Treatment Note M2 PT-IP Current Condition Start: 05/07/22 09:18 Freq: NEEDED Status: Active Protocol: Document 05/18/22 13:22 SP (Rec: 05/18/22 16:05 SP [id number]) Physical Therapy Current Condition Current Condition Evaluation Date 05/07/22 Treatment Diagnosis metabolic encephalopathy; polysubstance withdrawal; impaired mobility Onset Date 04/30/22 M3 PT-IP Subjective Start: 05/07/22 09:18 Freq: NEEDED Status: Active Protocol: Document 06/11/22 14:44 AW (Rec: 06/11/22 15:14 AW [id number]) Subjective Physical Therapy Visit Type Type Treatment Note Visit Start Time 14:12 Visit Stop Time 14:44 Total Visit Minutes 32 Number of CASE PACKER Visits 0 Physical Therapy Visit Comments Patient Comments Isn't the dentist coming today? Therapy Pain Assessment Pain When Pain Assessed At Rest Pain Present Pain Present Pain Reported Location teeth Scale Used not quantified Description Aching Pain Behaviors Crying,Facial Grimacing, Wincing Pain Management Techniques Distraction,Modification of Treatment M4 PT-IP Mobility and Gait Start: 05/07/22 09:18 Freq: NEEDED Status: Active Protocol: Document 06/11/22 14:44 AW (Rec: 06/11/22 15:14 AW [id number]) PT-Transfer Assessment Sit to and From Stand Sit to and from Stand Minimal Assistance,Moderate Assistance,2 Person Assistance ,Use of Upper Extremities Equipment Transfer Assistive Device Gait Belt,Platform Walker Orthotic/Prosthetic Devices or Brace: No Transfers Transfer Destination Chair Transfer Technique sit <> stand Comments Mobility Comments Pt was sitting up in the chair as PT and OT arrived. PT passively stretched R HS and calf. Chair was moved in front of the mirror. PT reinforced education on sit to stand technique. Pt needed TLINGIT & HAIDA assist for right hand on chair arm and attempted to scoot forward without forward trunk lean, needing cues and min A x 2 to complete. Therapists assisted pt to move feet into position for wider MARLA and feet closer to chair. He stood min A x 2 to platform walker with assist to elevate RUE. Pt needed max verbal and tactile cues while looking in the mirror to orient to midline and extend hips. Pt tolerated standing ~2 minutes with frequent verbal and tactile cues for upright posture and RLE alignment. Mod to max A to sit under control. Pt rested and then attempted standing again, needing mod A x 2 due to increased fatigue. Increased assist needed to stand but pt was able to maintain attention on midline awareness and tall standing another two minutes before needing to sit. Continued to work on sitting balance at edge of chair before returning pt to seated position next to the bed. PT-Balance Assessment Sitting Balance and Reactions Static Sitting Balance Ability Fair Dynamic Sitting Balance Ability Poor Standing Balance and Reactions Static Standing Balance Ability Poor Dynamic Standing Balance Ability Poor Device Used PFW M5 PT-IP Objective Assessments Start: 05/07/22 09:18 Freq: NEEDED Status: Active Protocol: Document 05/07/22 11:05 AW (Rec: 05/07/22 13:30 AW [id number]) Orientation Orientation/Cognition Level of Alertness Lethargic Orientation Name,Month,Place Safety Awareness Decreased Safety Awareness Gross Range of Motion Lower Extremity ROM Assessment Within Functional Limits Strength Lower Extremity Strength Assessment Bilaterally Impaired Comments Strength Comments R grossly 3-/5. L grossly 3+/5 Coordination Assessment Gross Coordination Gross Coordination Impaired Assessment Finger to Nose Test Activity Impossible Foot Tapping Test Minimal Impairment Coordination Comments Pt limited by BUE weakness with UE coordination testing. Sensation Assessment Sensation Gross Sensation WNL Muscle Tone Muscle Tone WNL Yes M6 PT-IP Treatment Start: 05/07/22 09:18 Freq: NEEDED Status: Active Protocol: Document 06/11/22 14:44 AW (Rec: 06/11/22 15:14 AW [id number]) Physical Therapy Treatment Education Education Provided Safety M7 PT-IP Assessment and Plan Start: 05/07/22 09:18 Freq: NEEDED Status: Active Protocol: Document 06/11/22 14:44 AW (Rec: 06/11/22 15:14 AW [id number]) PT Summary Assessment and Plan Potential Rehabilitation Potential Fair Summary Impairments Pain,ROM,Strength,Balance, Coordination,Sensation,Tone, Cognition,Bed Mobility, Transfers,Gait,Activity Tolerance Assessment Summary Pt remains highly motivated and is able to attend to midline orientation in sitting and standing. He needed 2- person assist for standing with platform walker today with emphasis on trunk control in sitting and standing. Pt will benefit from acute rehab vs SNF to improve strength and mobility independence. [ End ] Goals Bed Mobility Goal Contact Guard Assistance Transfer Goal Moderate Assistance Gait Goal Moderate Assistance Gait Distance 100 Other Goals transfers and ambulation using PFW/hemiwalker Days to Meet Goals 10 Frequency of Treatment Frequency Of Treatment Once a Day Treatment Plan Physical Therapy Treatment Plan Bed Mobility Training,Transfer Training,Gait Training, Therapeutic Exercise,Balance Retraining,Discharge Planning, Hot or Cold Pack,Neuromuscular Re-ed,Coordination Retraining Other Recommendations and Next Treatment sitting balance/tolerance; Focus trunk exercises; standing balance/tolerance Precautions Other Precautions seizure precautions; falls risk Recommendations To Nursing Amount of Assist Needed 2 Person Assist Discharge Recommendations PT Discharge Recommendations SNF Rehab,Acute Rehab,SNF vs Acute Rehab Transportation Needs at Discharge Wheelchair/Cabulance
--- NOTE | 2022-06-11 14:53 | OT.IP.TRT ---
Current Diagnoses Depression, unspecified (05/01/22) Cerebral infarction, unspecified (05/01/22) Spinal stenosis, cervical region (05/01/22) Occupational Therapy Treatment Note M2 OT-IP Current Condition Start: 05/07/22 12:13 Freq: Status: Active Protocol: Document 05/07/22 12:13 CGR (Rec: 05/07/22 12:37 CGR [id number]) Occupational Therapy Current Condition Current Condition Evaluation Date 05/07/22 Treatment Diagnosis generalized weakness, hx IV drug use, R CVA 2016 Diagnosis Onset Date 05/01/22 M3 OT- IP Subjective and Pain Start: 05/07/22 12:13 Freq: Status: Active Protocol: Document 06/11/22 14:56 [facility] (Rec: 06/11/22 15:03 [facility] [id number]) OT- Subjective Occupational Therapy Visit Type Type Treatment Note Visit Start Time 14:13 Visit Stop Time 14:53 Total Visit Minutes 40 Occupational Therapy Visit Comments Patient Comments Pt agreed to get up with OT/PT. Patient/Caregiver Goals To be able to see the dentist today and stop having pain. OT Pain Assessment Pain When Pain Assessed At Rest Pain Present Pain Present Pain Reported Location teeth Intensity 9 Scale Used Numeric (0 - 10) M4 OT- IP ADL's Start: 05/07/22 12:13 Freq: Status: Active Protocol: Document 06/11/22 14:56 [facility] (Rec: 06/11/22 15:03 [facility] [id number]) OT [id number] Comments OT Self-Feeding Comments Not at meal time. OT ADL-Grooming General Evaluation Grooming Ability Standby Assistance Comments OT Grooming Comments Pt able to wash his face after set-up. OT ADL-Oral Care General Eval Oral Care Ability Standby Assistance Areas of Assistance Retrieving/Set-Up of Items Comments Oral Care Comments Pt able to brush his teeth after set-up while seated. OT ADL-Dressing Comments OT Dressing Comments NOt performed. OT ADL-Toileting Comments OT Toileting Comments Not performed. OT ADL-Bathing Comments OT Bathing Comments NOt performed. M5 OT- IP IADL's Start: 05/07/22 12:13 Freq: Status: Active Protocol: Document 05/07/22 12:13 CGR (Rec: 05/07/22 12:37 CGR [id number]) OT-Instrumental Activities of Daily Living Deficits IADL Deficits Identified Deficits Home Safety Awareness Awareness of Need for Assistance at Home Decreased Awareness Ability to Problem Solve Emergency Unable to Problem Solve Situations Medication Management Medication Management Comments Concerns about pt's ability to perform consistently Money Management Money Management Comments Concerns about pt's ability to perform consistently Meal Preparation Meal Preparation Comments Concerns about pt's ability to perform consistently Facing Slitter Facing Slitter Comments Concerns about pt's ability to perform consistently M6 OT- IP Functional Cognition Start: 05/07/22 12:13 Freq: Status: Active Protocol: Document 06/11/22 14:56 [facility] (Rec: 06/11/22 15:03 [facility] [id number]) Cognitive Factors Limiting Selfcare Function Cognitive Comments Cognitive Assessment Comments Pt still having pain in his teeth,neck,back , and RUE. Pt still agreeable to participate in therapy for the second session. Pt better able to states what steps to take in order to scoot forwards and come to stand. M7 OT- IP Mobility and Balance Start: 05/07/22 12:13 Freq: Status: Active Protocol: Document 06/11/22 14:56 [facility] (Rec: 06/11/22 15:03 [facility] [id number]) OT-Transfer Assessment Sit to and From Stand Sit to and from Stand Minimal Assistance,Moderate Assistance,2 Person Assistance Comments Mobility Comments Pt able to come to stand with ROULA x2 to MODA X 2 to FWW with RUE platform. OT- Balance Assessment Sitting Balance and Reactions Static Sitting Balance Ability Fair Dynamic Sitting Balance Ability Poor Standing Balance and Reactions Static Standing Balance Ability Poor Dynamic Standing Balance Ability Poor Comments Other Balance Tests/Deviations/Treatment Able to do gentle stretching : to right UE as pt has tone in internal rotators. Pt initially ROULA x2 for balance to be able to stand upright and midline. Pt needing from MIN to MOD vc to help self correct his posture in addition to physical cues from ROULA to MAXA A . M8 OT- IP Objective Assessments Start: 05/07/22 12:13 Freq: Status: Active Protocol: Document 06/09/22 09:21 [facility] (Rec: 06/09/22 09:29 [facility] [id number]) OT- Coordination Assessment Comments Coordination Comments Able to to gentle strstching to pt's RUE and encourage pt to keep his right arm to his side versus internally rotated and resting on his chest. OT-Muscle Tone Assessment Comments Muscle Tone Comments increased tone RADHA Mcleod OT- IP Assessment and Plan Start: 05/07/22 12:13 Freq: Status: Active Protocol: Document 06/11/22 14:56 [facility] (Rec: 06/11/22 15:03 [facility] [id number]) OT Summary Assessment and Plan Potential Rehabilitation Potential Good Analytic Complexity at Evaluation High Summary OT Impairments Pain,Strength,Balance, Coordination,Functional Cognition,Functional Mobility, Self-Feeding,Grooming,Dressing ,Toileting,Bathing,Toilet Transfers,Shower Transfers, Activity Tolerance Progress Towards Goals Progressing Toward Goals,Slow Progress due to Pain,Slow Progress due to Medical Issues Assessment Summary Pt doing better with awareness and able to initiate self correcting his posture more while sitting and when standing with FWW and right platform and therapists to assist. Pt still concerned about his teeth pain and wanting to see the dentist. Pt will still greatly benefit from acute rehab versus skilled rehab. Goals Self-Feeding Goal Standby Assistance Grooming Goal Minimal Assistance Dressing Goal Moderate Assistance Toileting Goal Moderate Assistance Bathing Goal Moderate Assistance Toilet Transfer Goal Minimal Assistance Shower Transfer Goal Minimal Assistance Days to Meet Goals 40 Frequency of Treatment Frequency Of Treatment Twice a Day Treatment Plan OT Treatment Plan ADL Training,Functional Cognition Training,Functional Mobility,Neuromuscular Re- education,Therapeutic Exercises,Patient/Family Education,Discharge Planning Discharge Recommendations OT Discharge Recommendations SNF Rehab,Acute Rehab,SNF vs Acute Rehab Transportation Needs at Discharge Wheelchair/Cabulance
--- NOTE | 2022-06-11 18:09 | PC.NURSE ---
ok to have cheetos per .
[2022-06-11 20:06] VITALS: BMI 18.2
[2022-06-11] MEDS: ATORVASTATIN 20 MG TABLET 40 MG PO (22:04)
[2022-06-11 22:50] VITALS: BP 128/77; PULSE 76; RESP 18; TEMP 36.7; O2SAT 95
[2022-06-12] MEDS: CLINDAMYCIN 150 MG CAPSULE 450 MG PO ×3 (00:40→17:15)
[2022-06-12] MEDS: HYDROCODONE/ACET 5/325 TABLET 2 TAB PO ×5 (02:30→20:45)
[2022-06-12 07:10] LABS: Add Manual Diff / Slide Review NO; Basophils Absolute Auto 0 /uL (0-100); Basophils Percent Auto 0.2 % (0-2); Eosinophils Absolute Auto 100 /uL (0-450); Eosinophils Percent Auto 2.4 % (2-4); Hematocrit 35.1 % (41-53); Hemoglobin 11.2 g/dL (13.5-17.5); Lymphocytes Absolute Auto 1800 /uL (1100-4500); Mean Corpuscular HGB Conc 31.9 % (30-36); Mean Corpuscular Hemoglobin 23.1 PG (26-34); Mean Corpuscular Volume 72.4 fL (80-100); Monocytes Absolute Auto 400 /uL (0-900); Monocytes Percent Auto 8.2 % (3-14); Neutrophils Absolute Auto 2800 /uL (1500-7000); Neutrophils Percent Auto 54.2 % (50-75); Platelet Count 199 X10^3/uL (150-400); Red Blood Cell Count 4.85 X10^6/uL (4.5-5.9); Red Cell Distribution Width 21.7 % (11.6-14.8); White Blood Cell Count 5.2 X10^3/uL (4.5-11.0)
[2022-06-12 07:42] LABS: Alanine Aminotransferase 85 IU/L (<50); Albumin 3.5 g/dL (3.5-5.0); Albumin Globulin Ratio 1.1 (1.0-2.8); Alkaline Phosphatase 72 U/L (38-126); Aspartate Aminotransferase 58 IU/L (17-59); BUN Creatinine Ratio 39.4 (6-22); Bilirubin Total 0.1 mg/dL (0.2-1.3); Blood Urea Nitrogen 26 mg/dL (9-20); Calcium 8.5 mg/dL (8.4-10.2); Carbon Dioxide 33 mmol/L (22-32); Chloride 103 mmol/L (98-107); Estimated Glomerular Filt Rate > 60 mL/min (>60); Globulin 3.2 g/dL (1.7-4.1); Glucose 99 mg/dL (80-110); HEMOLYSIS 18 (0-50); Potassium 4.5 mmol/L (3.4-5.1); Sodium 140 mmol/L (137-145); Total Protein 6.7 g/dL (6.3-8.2)
[2022-06-12 09:14] LABS: Anisocytosis 1+
[2022-06-12] MEDS: ENOXAPARIN 40 MG/0.4 ML SYRINGE SUBCUT (09:37)
[2022-06-12] MEDS: SENNOSIDES 8.6 MG TABLET PO ×2 (09:37→20:46)
[2022-06-12] MEDS: PANTOPRAZOLE DR 40 MG TABLET PO ×2 (09:37→20:45)
[2022-06-12] MEDS: DULOXETINE 30 MG CAPSULE 60 MG PO (09:37)
[2022-06-12] MEDS: GABAPENTIN 400 MG CAPSULE PO ×3 (09:37→20:46)
[2022-06-12] MEDS: ASPIRIN EC 81 MG TABLET PO (09:37)
[2022-06-12] MEDS: IBUPROFEN 400 MG TABLET 600 MG PO ×3 (09:37→20:53)
[2022-06-12] MEDS: FOLIC ACID 1 MG TABLET PO (09:37)
[2022-06-12] MEDS: DOCUSATE 100 MG CAPSULE PO ×2 (09:37→20:46)
[2022-06-12] MEDS: MULTIVITAMIN 1 TABLET 1 TAB PO (09:37)
--- NOTE | 2022-06-12 10:17 | PC.NURSE ---
Addendum entered by Marylou Nagel R.N. 06/12/22 16:29: Patient worked with physical therapy and is now reclining in his chair. Pain medication affective for discomfort to mouth, and orajel helpful. He is weak and seems down today. Will give him his po vicodin around 5, he is sleeping now. Original Note: Patient is somber and quiet today. Given vicodin for 9/10 tooth ache pain, patient refused his orajel. Ativan routine order for 0900 not given as patient is sleepy after vicodin given. BS are wnl, o sob noted. Patient ate some breakfast and is sleeping. Asking about when the Dentist is going to come and she patient.
--- NOTE | 2022-06-12 11:21 | PT.IPTN ---
Current Diagnoses Depression, unspecified (05/01/22) Cerebral infarction, unspecified (05/01/22) Spinal stenosis, cervical region (05/01/22) Physical Therapy Treatment Note M2 PT-IP Current Condition Start: 05/07/22 09:18 Freq: NEEDED Status: Active Protocol: Document 05/18/22 13:22 SP (Rec: 05/18/22 16:05 SP [id number]) Physical Therapy Current Condition Current Condition Evaluation Date 05/07/22 Treatment Diagnosis metabolic encephalopathy; polysubstance withdrawal; impaired mobility Onset Date 04/30/22 M3 PT-IP Subjective Start: 05/07/22 09:18 Freq: NEEDED Status: Active Protocol: Document 06/12/22 10:40 [facility] (Rec: 06/12/22 12:31 [facility] [id number]) Subjective Physical Therapy Visit Type Type Treatment Note Visit Start Time 10:40 Visit Stop Time 11:21 Total Visit Minutes 41 Notes Co-treat w/ OT d/t pts needs for assist. Number of LINER HELPER Visits 1 Physical Therapy Visit Comments Patient Comments Isn't the dentist coming today? Therapy Pain Assessment Pain When Pain Assessed At Rest Pain Present Pain Present Pain Reported Location teeth Scale Used not quantified Description Aching Pain Behaviors Crying,Facial Grimacing, Wincing Pain Management Techniques Distraction,Modification of Treatment M4 PT-IP Mobility and Gait Start: 05/07/22 09:18 Freq: NEEDED Status: Active Protocol: Document 06/12/22 10:40 [facility] (Rec: 06/12/22 12:31 [facility] [id number]) PT-Bed Mobility Assessment Supine to Sit Supine to Sit Moderate Assistance,1 Person Assistance,Head of Bed Elevated,Bedrails Scooting Scooting to Edge of Bed Minimal Assistance PT-Transfer Assessment Sit to and From Stand Sit to and from Stand Minimal Assistance,Moderate Assistance,2 Person Assistance ,Use of Upper Extremities Equipment Transfer Assistive Device Gait Belt,Platform Walker Orthotic/Prosthetic Devices or Brace: No Transfers Transfer Destination Chair Transfer Technique Squat Pivot Transfer Ability Level of Assist Moderate Assistance,1 Person Assistance,2 Person Assistance ,Use of Upper Extremities Comments Mobility Comments Pt in bed upon arrival and agreeable to working w/ therapy. C/o tooth pain. Mod A for sup<>sit and Min A and cues for sittign EOB. Pt required CGA to Min A for sitting balance today w/ cues. Pt completed squat pivot transfer to chair on R side w/ Mod A and cues. Pt then worked on standing balance w/ platform walker in front of mirror to improve posture and balance as well as gait. Ot required Mod A x2 for sit<> Stand and Min to Mod A to maintain balance. He requires frequent cues for upright posture, hip and knee extension. He fatigues quickly and R sided tone increases which limits mobility. Performed 2 bouts of 5 ft ambulation in front of mirror w/ Mod A x2. Pt left in chair w/ all needs in reach. Gait Assessment Gait Gait Assistance Required: Moderate Assistance,2 Person Assist Distance (Feet) 10 Able to Maintain Weight Bearing Status Yes During Gait Assistive Devices Assistive Device Platform Walker Gait Deviations General Gait Pattern Antalgic,Ataxic,Decreased Stride Length,Decreased Feet Clearance,Flexed Trunk,Lateral Trunk Lean,Narrow Based Gait Factors Limiting Gait Function Factors Limiting Gait Function Abnormal Tonal Influences, Decreased Activity Tolerance, Decreased Sensation,Decreased Strength,Difficulty Following Directions,Incoordination, Limited Range of Motion,Pain, Poor Balance,Poor Safety Awareness Comments Gait Comments 2 short bouts of ambulation w/ PFWW Mod A x2 max cues. PT-Balance Assessment Sitting Balance and Reactions Static Sitting Balance Ability Fair Dynamic Sitting Balance Ability Poor Standing Balance and Reactions Static Standing Balance Ability Poor Dynamic Standing Balance Ability Poor Device Used PFW M5 PT-IP Objective Assessments Start: 05/07/22 09:18 Freq: NEEDED Status: Active Protocol: Document 05/07/22 11:05 AW (Rec: 05/07/22 13:30 AW [id number]) Orientation Orientation/Cognition Level of Alertness Lethargic Orientation Name,Month,Place Safety Awareness Decreased Safety Awareness Gross Range of Motion Lower Extremity ROM Assessment Within Functional Limits Strength Lower Extremity Strength Assessment Bilaterally Impaired Comments Strength Comments R grossly 3-/5. L grossly 3+/5 Coordination Assessment Gross Coordination Gross Coordination Impaired Assessment Finger to Nose Test Activity Impossible Foot Tapping Test Minimal Impairment Coordination Comments Pt limited by BUE weakness with UE coordination testing. Sensation Assessment Sensation Gross Sensation WNL Muscle Tone Muscle Tone WNL Yes M6 PT-IP Treatment Start: 05/07/22 09:18 Freq: NEEDED Status: Active Protocol: Document 06/12/22 10:40 [facility] (Rec: 06/12/22 12:31 [facility] [id number]) Physical Therapy Treatment Education Education Provided Safety M7 PT-IP Assessment and Plan Start: 05/07/22 09:18 Freq: NEEDED Status: Active Protocol: Document 06/12/22 10:40 [facility] (Rec: 06/12/22 12:31 [facility] [id number]) PT Summary Assessment and Plan Potential Rehabilitation Potential Fair Summary Impairments Pain,ROM,Strength,Balance, Coordination,Sensation,Tone, Cognition,Bed Mobility, Transfers,Gait,Activity Tolerance Assessment Summary Pt continues to be motivated to participate despite high level of tooth pain. Mod A for squat pivot, Min to Mod A x2 for sit<>Stand w/ PFW and Mod A x2 for ambulation w/ PFW. Pt limited by weakness, tone, poor balance and poor trunk control. He requires 2 PA for ambulation and chair follow. Pt will benefit SNF or acute care pending progress to improve strength and mobility independence. Goals Bed Mobility Goal Contact Guard Assistance Transfer Goal Moderate Assistance Gait Goal Moderate Assistance Gait Distance 100 Other Goals transfers and ambulation using PFW/hemiwalker Days to Meet Goals 10 Frequency of Treatment Frequency Of Treatment Once a Day Treatment Plan Physical Therapy Treatment Plan Bed Mobility Training,Transfer Training,Gait Training, Therapeutic Exercise,Balance Retraining,Discharge Planning, Hot or Cold Pack,Neuromuscular Re-ed,Coordination Retraining Other Recommendations and Next Treatment sitting balance/tolerance; Focus trunk exercises; standing balance/tolerance Precautions Other Precautions seizure precautions; falls risk Recommendations To Nursing Amount of Assist Needed 2 Person Assist Discharge Recommendations PT Discharge Recommendations SNF Rehab,Acute Rehab,SNF vs Acute Rehab Transportation Needs at Discharge Wheelchair/Cabulance
--- NOTE | 2022-06-12 11:21 | OT.IP.TRT ---
Current Diagnoses Depression, unspecified (05/01/22) Cerebral infarction, unspecified (05/01/22) Spinal stenosis, cervical region (05/01/22) Occupational Therapy Treatment Note M2 OT-IP Current Condition Start: 05/07/22 12:13 Freq: Status: Active Protocol: Document 05/07/22 12:13 CGR (Rec: 05/07/22 12:37 CGR [id number]) Occupational Therapy Current Condition Current Condition Evaluation Date 05/07/22 Treatment Diagnosis generalized weakness, hx IV drug use, R CVA 2016 Diagnosis Onset Date 05/01/22 M3 OT- IP Subjective and Pain Start: 05/07/22 12:13 Freq: Status: Active Protocol: Document 06/12/22 10:40 [facility] (Rec: 06/12/22 12:29 [facility] [id number]) OT- Subjective Occupational Therapy Visit Type Type Treatment Note Visit Start Time 10:40 Visit Stop Time 11:21 Total Visit Minutes 41 Occupational Therapy Visit Comments Patient Comments Pt agreed to get up today. Patient/Caregiver Goals To get better . OT Pain Assessment Pain When Pain Assessed At Rest Pain Present Pain Present Pain Reported Location teeth Intensity 8 Scale Used Numeric (0 - 10) M4 OT- IP ADL's Start: 05/07/22 12:13 Freq: Status: Active Protocol: Document 06/12/22 10:40 [facility] (Rec: 06/12/22 12:29 [facility] [id number]) OT [id number] Comments OT Self-Feeding Comments NOt at meal time. OT ADL-Grooming General Evaluation Grooming Ability Standby Assistance,Total Assistance Comments OT Grooming Comments Pt able to wash his face after set-up. Total assist to help put his hair up in a pony tail . OT ADL-Oral Care General Eval Oral Care Ability Standby Assistance Areas of Assistance Retrieving/Set-Up of Items Comments Oral Care Comments Pt able to brush his teeth after set-up while sitting at the edge of the bed. OT ADL-Dressing General Eval Lower Body Dressing Ability Maximum Assistance Comments OT Dressing Comments Pt able to hold pull up brief with left hand and having to have assist to get it over his right LE and assist to help pull up over in the bask while in supine. OT ADL-Toileting General Evaluation Toileting Ability Maximum Assistance Areas Needing Assistance Perform Perineal Hygiene Comments OT Toileting Comments Assist for completeness for hygiene. OT ADL-Bathing Comments OT Bathing Comments NOt performed. M5 OT- IP IADL's Start: 05/07/22 12:13 Freq: Status: Active Protocol: Document 05/07/22 12:13 CGR (Rec: 05/07/22 12:37 CGR [id number]) OT-Instrumental Activities of Daily Living Deficits IADL Deficits Identified Deficits Home Safety Awareness Awareness of Need for Assistance at Home Decreased Awareness Ability to Problem Solve Emergency Unable to Problem Solve Situations Medication Management Medication Management Comments Concerns about pt's ability to perform consistently Money Management Money Management Comments Concerns about pt's ability to perform consistently Meal Preparation Meal Preparation Comments Concerns about pt's ability to perform consistently Food Checkers And Cashiers Supervisor Food Checkers And Cashiers Supervisor Comments Concerns about pt's ability to perform consistently M6 OT- IP Functional Cognition Start: 05/07/22 12:13 Freq: Status: Active Protocol: Document 06/12/22 10:40 [facility] (Rec: 06/12/22 12:29 [facility] [id number]) Cognitive Factors Limiting Selfcare Function Cognitive Comments Cognitive Assessment Comments Pt not as animated the past few days as pt still having lots of tooth pain. Encouraged pt to be sure to ask staff for assist especially for brief changes as needed. Pt states unable to feel that he is wet at times. Pt able to understand the importance of staying clean to help prevent from skin breakdown. M7 OT- IP Mobility and Balance Start: 05/07/22 12:13 Freq: Status: Active Protocol: Document 06/12/22 10:40 [facility] (Rec: 06/12/22 12:29 [facility] [id number]) OT- Bed Mobility Assessment Supine to Sit Supine to Sit Assist Moderate Assistance Scooting Scooting to Edge of Bed Maximum Assistance OT-Transfer Assessment Sit to and From Stand Sit to and from Stand Minimal Assistance,Moderate Assistance,2 Person Assistance Transfers Transfer Ability Moderate Assistance,1 Person Assistance Technique Transfer Destination Bed,Chair Transfer Technique Squat Pivot Devices Transfer Assistive Devices Gait Belt Comments Mobility Comments Pt able to come to stand with ROULA x2 to MODA X 2 to FWW with RUE platform. Pt needing assist for RUE placement on the platform. Pt needing more assist as he tires and as his tone kicks in more during exertion. OT- Gait Assessment Comments Gait Ability Comments Pt needing MODA x2 with platform walker, assist for balance, FWW guidance, and cues for his feet and trunk. OT- Balance Assessment Sitting Balance and Reactions Static Sitting Balance Ability Fair Dynamic Sitting Balance Ability Poor Standing Balance and Reactions Static Standing Balance Ability Poor Dynamic Standing Balance Ability Poor Comments Other Balance Tests/Deviations/Treatment Pt able to sit at the edge of : the bed with SBA and ROULA vc to sit to midline when doing grooming needs and assist to put up his hair into a pony tail. M8 OT- IP Objective Assessments Start: 05/07/22 12:13 Freq: Status: Active Protocol: Document 06/09/22 09:21 [facility] (Rec: 06/09/22 09:29 [facility] [id number]) OT- Coordination Assessment Comments Coordination Comments Able to to gentle stretching to pt's RUE and encourage pt to keep his right arm to his side versus internally rotated and resting on his chest. OT-Muscle Tone Assessment Comments Muscle Tone Comments increased tone RUE and RLE M9 OT- IP Assessment and Plan Start: 05/07/22 12:13 Freq: Status: Active Protocol: Document 06/12/22 10:40 [facility] (Rec: 06/12/22 12:29 [facility] [id number]) OT Summary Assessment and Plan Potential Rehabilitation Potential Good Analytic Complexity at Evaluation High Summary OT Impairments Pain,Strength,Balance, Coordination,Functional Cognition,Functional Mobility, Self-Feeding,Grooming,Dressing ,Toileting,Bathing,Toilet Transfers,Shower Transfers, Activity Tolerance Progress Towards Goals Progressing Toward Goals,Slow Progress due to Pain,Slow Progress due to Medical Issues Assessment Summary Pt still making gain for awareness for trunk control and at times able to adjust himself especially with use of the mirror in front of him. Pt is motivated to do therapy, however his teeth pain in addition to neck, back and right arm pain limited his activity tolerance. Pt will still benefit from acute rehab if able to tolerate versus skilled rehab. Goals Self-Feeding Goal Standby Assistance Grooming Goal Minimal Assistance Dressing Goal Moderate Assistance Toileting Goal Moderate Assistance Bathing Goal Moderate Assistance Toilet Transfer Goal Minimal Assistance Shower Transfer Goal Minimal Assistance Days to Meet Goals 40 Frequency of Treatment Frequency Of Treatment Twice a Day Treatment Plan OT Treatment Plan ADL Training,Functional Cognition Training,Functional Mobility,Neuromuscular Re- education,Therapeutic Exercises,Patient/Family Education,Discharge Planning Discharge Recommendations OT Discharge Recommendations SNF Rehab,Acute Rehab,SNF vs Acute Rehab Transportation Needs at Discharge Wheelchair/Cabulance
[2022-06-12 12:00] VITALS: BP 127/66; PULSE 66; RESP 20; TEMP 36.6; O2SAT 96
[2022-06-12] MEDS: ORAJEL 1 EACH TOP ×2 (13:08→17:16)
--- NOTE | 2022-06-12 16:30 | OT.IP.TRT ---
Current Diagnoses Depression, unspecified (05/01/22) Cerebral infarction, unspecified (05/01/22) Spinal stenosis, cervical region (05/01/22) Occupational Therapy Treatment Note M2 OT-IP Current Condition Start: 05/07/22 12:13 Freq: Status: Active Protocol: Document 05/07/22 12:13 CGR (Rec: 05/07/22 12:37 CGR [id number]) Occupational Therapy Current Condition Current Condition Evaluation Date 05/07/22 Treatment Diagnosis generalized weakness, hx IV drug use, R CVA 2015 Diagnosis Onset Date 05/01/22 M3 OT- IP Subjective and Pain Start: 05/07/22 12:13 Freq: Status: Active Protocol: Document 06/12/22 16:54 [facility] (Rec: 06/12/22 16:59 [facility] [id number]) OT- Subjective Occupational Therapy Visit Type Type Treatment Note Visit Start Time 16:30 Visit Stop Time 16:54 Total Visit Minutes 24 Occupational Therapy Visit Comments Patient Comments Pt in the recliner and not wanting to get up at this time but agreed for OT to work on his RUE for gentle stretching of internal rotators. Patient/Caregiver Goals To get better. OT Pain Assessment Pain When Pain Assessed At Rest Pain Present Pain Present Pain Reported Location teeth Pain Behaviors Facial Grimacing,Moaning M5 OT- IP IADL's Start: 05/07/22 12:13 Freq: Status: Active Protocol: Document 05/07/22 12:13 CGR (Rec: 05/07/22 12:37 CGR [id number]) OT-Instrumental Activities of Daily Living Deficits IADL Deficits Identified Deficits Home Safety Awareness Awareness of Need for Assistance at Home Decreased Awareness Ability to Problem Solve Emergency Unable to Problem Solve Situations Medication Management Medication Management Comments Concerns about pt's ability to perform consistently Money Management Money Management Comments Concerns about pt's ability to perform consistently Meal Preparation Meal Preparation Comments Concerns about pt's ability to perform consistently Mechanical Equipment Test Engineer Mechanical Equipment Test Engineer Comments Concerns about pt's ability to perform consistently M6 OT- IP Functional Cognition Start: 05/07/22 12:13 Freq: Status: Active Protocol: Document 06/12/22 10:40 CCC (Rec: 06/12/22 12:29 [facility] [id number]) Cognitive Factors Limiting Selfcare Function Cognitive Comments Cognitive Assessment Comments Pt not as animated the past few days as pt still having lots of tooth pain. Encouraged pt to be sure to ask staff for assist especially for brief changes as needed. Pt states unable to feel that he is wet at times. Pt able to understand the importance of staying clean to help prevent from skin breakdown. M8 OT- IP Objective Assessments Start: 05/07/22 12:13 Freq: Status: Active Protocol: Document 06/12/22 16:54 [facility] (Rec: 06/12/22 16:59 [facility] [id number]) OT Gross Range of Motion Upper Extremity Range of Motion ROM Impairments Rue hand initially only able to flex at MCP 10 degrees and after stretching, carpal mobs able to close his fist 25%. M9 OT- IP Assessment and Plan Start: 05/07/22 12:13 Freq: Status: Active Protocol: Document 06/12/22 16:54 [facility] (Rec: 06/12/22 16:59 [facility] [id number]) OT Summary Assessment and Plan Potential Rehabilitation Potential Good Analytic Complexity at Evaluation High Summary OT Impairments Pain,Strength,Balance, Coordination,Functional Cognition,Functional Mobility, Self-Feeding,Grooming,Dressing ,Toileting,Bathing,Toilet Transfers,Shower Transfers, Activity Tolerance Progress Towards Goals Progressing Toward Goals,Slow Progress due to Pain,Slow Progress due to Medical Issues ,Slow Progress due to Activity Tolerance Assessment Summary Pt more tired today and not able to tolerate as much therapy today. Encourage pt again to be sure to call for assist especially when needing to use the bathroom. Pt will benefit from skilled rehab versus acute rehab. Goals Self-Feeding Goal Standby Assistance Grooming Goal Minimal Assistance Dressing Goal Moderate Assistance Toileting Goal Moderate Assistance Bathing Goal Moderate Assistance Toilet Transfer Goal Minimal Assistance Shower Transfer Goal Minimal Assistance Days to Meet Goals 24 Frequency of Treatment Frequency Of Treatment Twice a Day Treatment Plan OT Treatment Plan ADL Training,Functional Cognition Training,Functional Mobility,Neuromuscular Re- education,Therapeutic Exercises,Patient/Family Education,Discharge Planning Discharge Recommendations OT Discharge Recommendations SNF Rehab,Acute Rehab,SNF vs Acute Rehab Transportation Needs at Discharge Wheelchair/Cabulance
--- NOTE | 2022-06-12 17:35 | P.PN_ITS ---
Subjective Subjective Date Patient Seen: 06/12/22 Interval history: 62-year-old gentleman with underlying substance dependence, stroke with right- sided weakness, depression, chronic back pain, and asthma who is presently hospital day number 40 initially admitted with concern for worsening stroke symptoms and altered mental status.? He has had a prolonged hospitalization related to his overall weakness and delays in getting him placed.? On June 09, Patient reported he has had pain in his mouth and gum for the last week.? He had been receiving hydrocodone but noted it has just been sufficient with controlling his symptoms.? He states the pain in his tooth and jaw was making his neck pain worse.? He states prior to the onset of the pain, he was feeling better overall.? He states he felt his antidepressant was working well.? He states his appetite was improving.? He was initiated on oral clindamycin on the evening of June 09 due to periapical lucencies seen on his facial CT.? Oral benzocaine was also obtained for as needed use.? He reports that has been helpful.? Hydrocodone was increased to 2 tabs q.3 hours as needed.?He states his entire gum feels more painful today. Chrissy Vega did not eval yesterday. No other new complaints per pt. Exam Vital Signs (past 8 hours): - 06/12/22 12:00 Temperature 97.8 F Pulse Rate 66 Respiratory Rate 20 Blood Pressure 127/66 Pulse Oximetry 96 Oxygen Flow Rate 0 Oxygen Delivery Method Room Air Oxygen Flow Rate 0 Narrative Exam Narrative: GEN:? Middle-aged male, Alert and oriented x 3, appears uncomfortable, sitting up in a chair HEENT:NC, Face symmetric, he is essentially edentulous though it appears multiple teeth have been broken off the gum line, the painful area is in his right lower lower jaw and anterior lower jaw.? No obvious erythema /exudate/induration/fluctuance. CHEST: Respiratory excursions symmetric, CTAB CV: RRR, no M/R/G ABD: Soft, NT/ND, BT present in all 4 quadrants, no organomegaly or masses EXTR: warm, well perfused, no C/C/E, right upper extremity remains weak, poor mobility lower SKIN: warm and dry, no rash NEURO: Alert and oriented x 3, persistent right upper extremity weakness Objective Labs Result Diagrams: 06/12/22 06:53 06/12/22 06:41 Labs: Laboratory Results - last 24 hr 05/20/22 06/12/22 06/12/22 18:50 06:41 06:53 WBC 5.2 RBC 4.85 Hgb 11.2 L Hct 35.1 L MCV 72.4 L MCH 23.1 L MCHC 31.9 RDW 21.7 H Plt Count 199 Neut % (Auto) 54.2 Lymph % (Auto) 35.0 [place] % (Auto) 8.2 Eos % (Auto) 2.4 Baso % (Auto) 0.2 Neut # (Auto) 2800 Lymph # (Auto) 1800 [place] # (Auto) 400 Eos # (Auto) 100 Baso # (Auto) 0 RBC Morphology See below Anisocytosis 1+ H Beta Thalassemia Scrn Comment Sodium 140 Potassium 4.5 Chloride 103 Carbon Dioxide 33 H BUN 26 H Creatinine 0.66 Estimated GFR > 60 BUN/Creatinine Ratio 39.4 H Glucose 99 Calcium 8.5 Total Bilirubin 0.1 L AST 58 ALT 85 H Alkaline Phosphatase 72 Total Protein 6.7 Albumin 3.5 Globulin 3.2 Albumin/Globulin Ratio 1.1 [facility] Medical History Asthma Chronic back pain greater than 3 months duration Closed intertrochanteric fracture of left femur Depression Drug abuse, IV History of CVA (cerebrovascular accident) Surgical History History of hernia repair Family History Father Unknown family medical history Mother No problems noted. Grandmother Myocardial infarction Grandfather No problems noted. Social History household members: friend(s) Smoking Status: Current some day smoker alcohol intake: current Assessment & Plan Assessment & Plan narrative: 1. Dental pain Patient has multiple fractured teeth with just the root remaining in place.? Facial CT was done June 05 which revealed tiny residual roots of the lateral mandibular incisors and canines with adjacent periapical lucency.? No lytic or destructive lesion in the mandible.? No maxillary teeth present.? No acute soft tissue findings.? The periapical lucency could be consistent with dental abscess.? Started clindamycin on the evening of June 09.? No diarrhea.? Tolerating well thus far.? Continue hydrocodone and benzocaine for pain. I left a message for Dr. Vega [phone]; no return call. 2. Generalized weakness Patient is chronically debilitated.? This admission he underwent 2 brain MRIs which for stroke, C-spine MRI with chronic pathology but no acute cord compression.? Remainder of workup was otherwise unremarkable.? He was initiated on Cymbalta 05/18 and gabapentin 05/21 with good results.? Patient's weakness is improving per report. 3. Hypertension Blood pressures remain normotensive.? He is not treated at baseline.? I am uncertain where the hypertension diagnosis came from. 4. Hyperlipidemia Continue atorvastatin. 5. Polysubstance dependence Currently in remission 6. Prior stroke with residual right-sided weakness Continue aspirin and atorvastatin 7. Microcytic anemia Thalassemia screen was done earlier in this hospitalization.? Results were reportedly faxed though I have not found documentation of those results.? Will attempt to obtain them further. 8. Hepatitis-C Positive hep C antibody and hep C RNA greater than 1,000,000.? Will need outpatient follow-up. Resolved issues: Altered mental status/metabolic encephalopathy Oral thrush Acute respiratory failure due to pneumonia Pneumonia Time Spent With Patient Critical Care time: I spent a total of [] minutes of critical care time on this patient's care today; this time is exclusive of procedural time. Quality VTE Deep Vein Thrombosis/Pulmonary Embolism Present on Admission: No
[2022-06-12 20:00] VITALS: BP 107/59; PULSE 69; RESP 18; TEMP 36.2; O2SAT 95
[2022-06-12] MEDS: LORazepam 1 MG TABLET 0.5 MG PO (20:42)
[2022-06-12] MEDS: ATORVASTATIN 20 MG TABLET 40 MG PO (20:43)
[2022-06-13] MEDS: HYDROCODONE/ACET 5/325 TABLET 2 TAB PO ×3 (00:45→11:30)
[2022-06-13] MEDS: CLINDAMYCIN 150 MG CAPSULE 450 MG PO ×3 (00:45→15:52)
--- NOTE | 2022-06-13 05:05 | PM.PN.1 ---
Subjective Subjective Date Patient Seen: 06/13/22 Time Patient Seen: 12:00 Interval history: Patient states his ?mouth hurts?. Requesting increase in pain medication. Exam Vital Signs (past 8 hours): Oxygen Delivery Method Room Air Oxygen Flow Rate 0 Narrative Exam Narrative: GEN:? Middle-aged male, Alert and oriented x 3, appears uncomfortable, sitting up in a chair HEENT:NC, Face symmetric, he is essentially edentulous though it appears multiple teeth have been broken off the gum line, the painful area is in his right lower lower jaw and anterior lower jaw.? No obvious erythema/exudate/induration/fluctuance. CHEST: Respiratory excursions symmetric, CTAB CV: RRR, no M/R/G ABD: Soft, NT/ND, BT present in all 4 quadrants, no organomegaly or masses EXTR: warm, well perfused, no C/C/E, right upper extremity remains weak, poor mobility lower SKIN: warm and dry, no rash NEURO: Alert and oriented x 3, persistent right upper extremity weakness Objective Labs Result Diagrams: 06/12/22 06:53 06/12/22 06:41 Labs: Laboratory Results - last 24 hr 05/20/22 06/12/22 06/12/22 18:50 06:41 06:53 WBC 5.2 RBC 4.85 Hgb 11.2 L Hct 35.1 L MCV 72.4 L MCH 23.1 L MCHC 31.9 RDW 21.7 H Plt Count 199 Neut % (Auto) 54.2 Lymph % (Auto) 35.0 [place] % (Auto) 8.2 Eos % (Auto) 2.4 Baso % (Auto) 0.2 Neut # (Auto) 2800 Lymph # (Auto) 1800 [place] # (Auto) 400 Eos # (Auto) 100 Baso # (Auto) 0 RBC Morphology See below Anisocytosis 1+ H Beta Thalassemia Scrn Comment Sodium 140 Potassium 4.5 Chloride 103 Carbon Dioxide 33 H BUN 26 H Creatinine 0.66 Estimated GFR > 60 BUN/Creatinine Ratio 39.4 H Glucose 99 Calcium 8.5 Total Bilirubin 0.1 L AST 58 ALT 85 H Alkaline Phosphatase 72 Total Protein 6.7 Albumin 3.5 Globulin 3.2 Albumin/Globulin Ratio 1.1 PFS Medical History Asthma Chronic back pain greater than 3 months duration Closed intertrochanteric fracture of left femur Depression Drug abuse, IV History of CVA (cerebrovascular accident) Surgical History History of hernia repair Family History Father Unknown family medical history Mother No problems noted. Grandmother Myocardial infarction Grandfather No problems noted. Social History household members: friend(s) Smoking Status: Current some day smoker alcohol intake: current Assessment & Plan Assessment & Plan narrative: 1. Dental pain Patient has multiple fractured teeth with just the root remaining in place.? Facial CT was done June 05 which revealed tiny residual roots of the lateral mandibular incisors and canines with adjacent periapical lucency.? No lytic or destructive lesion in the mandible.? No maxillary teeth present.? No acute soft tissue findings.? The periapical lucency could be consistent with dental abscess.? Started clindamycin on the evening of June 09.? No diarrhea.? Tolerating well thus far.? Continue hydrocodone and benzocaine for pain. Attempting to reach Dr. Vega [phone] to have patient evaluated for dental abscess. -continue clindamycin po 2. Generalized weakness Patient is chronically debilitated.? This admission he underwent 2 brain MRIs which for stroke, C-spine MRI with chronic pathology but no acute cord compression.? Remainder of workup was otherwise unremarkable.? He was initiated on Cymbalta 05/18 and gabapentin 05/21 with good results.? Patient's weakness is improving per report. 3. Hypertension Blood pressures remain normotensive.? He is not treated at baseline.? I am uncertain where the hypertension diagnosis came from. 4. Hyperlipidemia Continue atorvastatin. 5. Polysubstance dependence Currently in remission 6. Prior stroke with residual right-sided weakness Continue aspirin and atorvastatin 7. Microcytic anemia Thalassemia screen negative. 8. Hepatitis-C Positive hep C antibody and hep C RNA greater than 1,000,000.? Will need outpatient follow-up. Resolved issues: Altered mental status/metabolic encephalopathy Oral thrush Acute respiratory failure due to pneumonia Pneumonia Time Spent With Patient Critical Care time: I spent a total of [] minutes of critical care time on this patient's care today; this time is exclusive of procedural time. Quality VTE Deep Vein Thrombosis/Pulmonary Embolism Present on Admission: No
[2022-06-13 07:00] VITALS: BP 117/71; PULSE 70; RESP 18; TEMP 36.6; O2SAT 95
[2022-06-13] MEDS: ENOXAPARIN 40 MG/0.4 ML SYRINGE SUBCUT (08:48)
[2022-06-13] MEDS: DULOXETINE 30 MG CAPSULE 60 MG PO (08:49)
[2022-06-13] MEDS: GABAPENTIN 400 MG CAPSULE PO ×3 (08:49→21:20)
[2022-06-13] MEDS: PANTOPRAZOLE DR 40 MG TABLET PO ×2 (08:50→21:20)
[2022-06-13] MEDS: FOLIC ACID 1 MG TABLET PO (08:50)
[2022-06-13] MEDS: MULTIVITAMIN 1 TABLET 1 TAB PO (08:50)
[2022-06-13] MEDS: IBUPROFEN 400 MG TABLET 600 MG PO ×3 (08:51→21:20)
[2022-06-13] MEDS: ORAJEL 1 EACH TOP ×4 (08:52→21:21)
[2022-06-13] MEDS: ASPIRIN EC 81 MG TABLET PO (08:53)
--- NOTE | 2022-06-13 11:30 | PT-IP ANOTE ---
Attempted to see pt at 11:30, however pt just starting phone call w/ mother. Will check back in PM.
--- NOTE | 2022-06-13 11:46 | OT.IPNOTE ---
Pt not available as taking a phone call from his mother. To check on the pt later.
--- NOTE | 2022-06-13 13:24 | PT.IPTN ---
Current Diagnoses Depression, unspecified (05/01/22) Cerebral infarction, unspecified (05/01/22) Spinal stenosis, cervical region (05/01/22) Physical Therapy Treatment Note M2 PT-IP Current Condition Start: 05/07/22 09:18 Freq: NEEDED Status: Active Protocol: Document 05/18/22 13:22 SP (Rec: 05/18/22 16:05 SP [id number]) Physical Therapy Current Condition Current Condition Evaluation Date 05/07/22 Treatment Diagnosis metabolic encephalopathy; polysubstance withdrawal; impaired mobility Onset Date 04/30/22 M3 PT-IP Subjective Start: 05/07/22 09:18 Freq: NEEDED Status: Active Protocol: Document 06/13/22 12:38 KS (Rec: 06/13/22 14:08 KS [id number]) Subjective Physical Therapy Visit Type Type Treatment Note Visit Start Time 12:38 Visit Stop Time 13:24 Total Visit Minutes 46 Notes Co-treat w/ OT d/t pts needs for assist. Number of ADJUNCT NURSING FACULTY Visits 2 M4 PT-IP Mobility and Gait Start: 05/07/22 09:18 Freq: NEEDED Status: Active Protocol: Document 06/13/22 12:38 KS (Rec: 06/13/22 14:08 KS [id number]) PT-Bed Mobility Assessment Supine to Sit Supine to Sit Minimal Assistance,1 Person Assistance,Bedrails Scooting Scooting to Edge of Bed Minimal Assistance PT-Transfer Assessment Sit to and From Stand Sit to and from Stand Minimal Assistance,Moderate Assistance,2 Person Assistance ,Use of Upper Extremities Equipment Transfer Assistive Device Gait Belt,Platform Walker Orthotic/Prosthetic Devices or Brace: No Transfers Transfer Destination Chair Transfer Technique Squat Pivot Transfer Ability Level of Assist Moderate Assistance,1 Person Assistance,2 Person Assistance ,Use of Upper Extremities Comments Mobility Comments Pt in bed upon arrival. Min A for sup<>sit and scooting EOB. Chair positioned to R side, pt performed squat pivot from bed to chair w/ Mod A and cues for sequencing. Pt then performed sit<>stand w/ PFW Min A x2 w/ cues for sequencing. Pt able to maintain standng balance ~1 min and ambulate 5 ft w/ Mod A x2 w/ cues for upright posture and knee and hip extension. Pt w/ difficulty extending R knee d/t tone and lack of dorsiflexion of R foot . Pt performed 2 more sit<> stands w/ PFW Mod A x2 and cues, but unable to maintain standing balance due to fatigue despite rest breaks. Pt tearful over lack of progress today. Left in chair w/ all needs in reach and OT in room. Gait Assessment Gait Gait Assistance Required: Moderate Assistance,2 Person Assist Distance (Feet) 5 Able to Maintain Weight Bearing Status Yes During Gait Assistive Devices Assistive Device Platform Walker Gait Deviations General Gait Pattern Antalgic,Ataxic,Decreased Stride Length,Decreased Feet Clearance,Flexed Trunk,Lateral Trunk Lean,Narrow Based Gait Factors Limiting Gait Function Factors Limiting Gait Function Abnormal Tonal Influences, Decreased Activity Tolerance, Decreased Sensation,Decreased Strength,Difficulty Following Directions,Incoordination, Limited Range of Motion,Pain, Poor Balance,Poor Safety Awareness Comments Gait Comments 5ft ambulation w/ PFW Mod A x2 . PT-Balance Assessment Sitting Balance and Reactions Static Sitting Balance Ability Fair Dynamic Sitting Balance Ability Poor Standing Balance and Reactions Static Standing Balance Ability Poor Dynamic Standing Balance Ability Poor Device Used PFW M5 PT-IP Objective Assessments Start: 05/07/22 09:18 Freq: NEEDED Status: Active Protocol: Document 05/07/22 11:05 AW (Rec: 05/07/22 13:30 AW [id number]) Orientation Orientation/Cognition Level of Alertness Lethargic Orientation Name,Month,Place Safety Awareness Decreased Safety Awareness Gross Range of Motion Lower Extremity ROM Assessment Within Functional Limits Strength Lower Extremity Strength Assessment Bilaterally Impaired Comments Strength Comments R grossly 3-/5. L grossly 3+/5 Coordination Assessment Gross Coordination Gross Coordination Impaired Assessment Finger to Nose Test Activity Impossible Foot Tapping Test Minimal Impairment Coordination Comments Pt limited by BUE weakness with UE coordination testing. Sensation Assessment Sensation Gross Sensation WNL Muscle Tone Muscle Tone WNL Yes M6 PT-IP Treatment Start: 05/07/22 09:18 Freq: NEEDED Status: Active Protocol: Document 06/13/22 12:38 KS (Rec: 06/13/22 14:08 KS [id number]) Physical Therapy Treatment Education Education Provided Safety Other Treatments Other Treatment Performed Calf stretch, seated perturbations. M7 PT-IP Assessment and Plan Start: 05/07/22 09:18 Freq: NEEDED Status: Active Protocol: Document 06/13/22 12:38 KS (Rec: 06/13/22 14:08 KS [id number]) PT Summary Assessment and Plan Potential Rehabilitation Potential Fair Summary Impairments Pain,ROM,Strength,Balance, Coordination,Sensation,Tone, Cognition,Bed Mobility, Transfers,Gait,Activity Tolerance Assessment Summary Pt not showing prgress today but still w/ good effort to participate. Min A for bed mobility and Mod A x1 w/ cues for squat pivot transfers. Pt still however requiring 2PA for sit<>stand and to maintain standing balance due to weakness and tone. At this time, pt will require SNF to improve strength, activity tolerance, and functional mobility independence. Goals Bed Mobility Goal Contact Guard Assistance Transfer Goal Moderate Assistance Gait Goal Moderate Assistance Gait Distance 100 Other Goals transfers and ambulation using PFW/hemiwalker Days to Meet Goals 10 Frequency of Treatment Frequency Of Treatment Once a Day Treatment Plan Physical Therapy Treatment Plan Bed Mobility Training,Transfer Training,Gait Training, Therapeutic Exercise,Balance Retraining,Discharge Planning, Hot or Cold Pack,Neuromuscular Re-ed,Coordination Retraining Other Recommendations and Next Treatment sitting balance/tolerance; Focus trunk exercises; standing balance/tolerance Precautions Other Precautions seizure precautions; falls risk Recommendations To Nursing Amount of Assist Needed 2 Person Assist Discharge Recommendations PT Discharge Recommendations SNF Rehab Transportation Needs at Discharge Wheelchair/Cabulance
--- NOTE | 2022-06-13 13:25 | OT.IP.TRT ---
Current Diagnoses Depression, unspecified (05/01/22) Cerebral infarction, unspecified (05/01/22) Spinal stenosis, cervical region (05/01/22) Occupational Therapy Treatment Note M2 OT-IP Current Condition Start: 05/07/22 12:13 Freq: Status: Active Protocol: Document 05/07/22 12:13 CGR (Rec: 05/07/22 12:37 CGR [id number]) Occupational Therapy Current Condition Current Condition Evaluation Date 05/07/22 Treatment Diagnosis generalized weakness, hx IV drug use, R CVA 2016 Diagnosis Onset Date 05/01/22 M3 OT- IP Subjective and Pain Start: 05/07/22 12:13 Freq: Status: Active Protocol: Document 06/13/22 14:15 CCC (Rec: 06/13/22 14:25 CCC [id number]) OT- Subjective Occupational Therapy Visit Type Type Treatment Note Visit Start Time 12:35 Visit Stop Time 13:25 Total Visit Minutes 50 Occupational Therapy Visit Comments Patient Comments Pt agreeing to work with OT/ DEVELOPER ANALYST. Pt very tearful today of lack of progress for his mobility needs. Patient/Caregiver Goals To get better. OT Pain Assessment Pain When Pain Assessed During Mobility Pain Present Pain Present Pain Reported M4 OT- IP ADL's Start: 05/07/22 12:13 Freq: Status: Active Protocol: Document 06/13/22 14:15 [facility] (Rec: 06/13/22 14:25 [facility] [id number]) OT [id number] Comments OT Self-Feeding Comments NOt at meal time. OT ADL-Grooming General Evaluation Grooming Ability Standby Assistance,Total Assistance Comments OT Grooming Comments Pt able to wash his face after set-up. Total assist to help put his hair up in a pony tail . Assist to wash off his right hand , noted his skin sloughing off. OT ADL-Dressing Comments OT Dressing Comments Pt with assist to hold his right knee while having both legs bent at his knee able to lift his hips up so nursing aid able to assist to change his brief. OT ADL-Toileting General Evaluation Toileting Ability Maximum Assistance Areas Needing Assistance Manage Clothing,Perform Perineal Hygiene Comments OT Toileting Comments assist for hygiene in bed for for brief management needs OT ADL-Bathing Comments OT Bathing Comments NOt performed. M5 OT- IP IADL's Start: 05/07/22 12:13 Freq: Status: Active Protocol: Document 05/07/22 12:13 CGR (Rec: 05/07/22 12:37 CGR [id number]) OT-Instrumental Activities of Daily Living Deficits IADL Deficits Identified Deficits Home Safety Awareness Awareness of Need for Assistance at Home Decreased Awareness Ability to Problem Solve Emergency Unable to Problem Solve Situations Medication Management Medication Management Comments Concerns about pt's ability to perform consistently Money Management Money Management Comments Concerns about pt's ability to perform consistently Meal Preparation Meal Preparation Comments Concerns about pt's ability to perform consistently Research Program Intern Research Program Intern Comments Concerns about pt's ability to perform consistently M6 OT- IP Functional Cognition Start: 05/07/22 12:13 Freq: Status: Active Protocol: Document 06/13/22 14:15 CCC (Rec: 06/13/22 14:25 [facility] [id number]) Cognitive Factors Limiting Selfcare Function Cognitive Comments Cognitive Assessment Comments Pt a bit tearful of lack of progress and feeling useless. Pt encouraged to call for assist as needed. However, pt still able to joke around with the therapists in conversation . To reassess SLUMS tomorrow . M7 OT- IP Mobility and Balance Start: 05/07/22 12:13 Freq: Status: Active Protocol: Document 06/13/22 14:15 [facility] (Rec: 06/13/22 14:25 [facility] [id number]) OT- Bed Mobility Assessment Supine to Sit Supine to Sit Assist Minimal Assistance OT-Transfer Assessment Sit to and From Stand Sit to and from Stand Minimal Assistance,Moderate Assistance,2 Person Assistance Transfers Transfer Ability Moderate Assistance,2 Person Assistance Technique Transfer Destination Bed,Chair Transfer Technique Squat Pivot Devices Transfer Assistive Devices Gait Belt Comments Mobility Comments Pt able to come to stand with ROULA x2 to MODA X 2 to FWW with RUE platform. Pt needing assist for RUE placement on the platform. Pt tiring quickly today and needing more assist for his balance. OT- Balance Assessment Sitting Balance and Reactions Static Sitting Balance Ability Fair Dynamic Sitting Balance Ability Poor Standing Balance and Reactions Static Standing Balance Ability Poor Dynamic Standing Balance Ability Poor Comments Other Balance Tests/Deviations/Treatment Pt able to sit upright at the : recliner and able to withstand pertubations from DEVELOPER ANALYST. Pt mainly at times decreased awareness/initiation to correct his posture. verbal cues needed. M9 OT- IP Assessment and Plan Start: 05/07/22 12:13 Freq: Status: Active Protocol: Document 06/13/22 14:15 [facility] (Rec: 06/13/22 14:25 [facility] [id number]) OT Summary Assessment and Plan Potential Rehabilitation Potential Good Analytic Complexity at Evaluation High Summary OT Impairments Pain,Strength,Balance, Coordination,Functional Cognition,Functional Mobility, Self-Feeding,Grooming,Dressing ,Toileting,Bathing,Toilet Transfers,Shower Transfers, Activity Tolerance Progress Towards Goals Slow Progress due to Pain,Slow Progress due to Medical Issues,Slow Progress due to Activity Tolerance Assessment Summary Pt not able to tolerate as much therapy today as feeling down due to his lack of progress. Pt at this time, due to decreased activity tolerance, partially due to his pain overall with his teeth,neck ,and right shoulder would be better off to go to skilled rehab. Goals Self-Feeding Goal Standby Assistance Grooming Goal Minimal Assistance Dressing Goal Moderate Assistance Toileting Goal Moderate Assistance Bathing Goal Moderate Assistance Toilet Transfer Goal Minimal Assistance Shower Transfer Goal Minimal Assistance Days to Meet Goals 40 Frequency of Treatment Frequency Of Treatment Twice a Day Treatment Plan OT Treatment Plan ADL Training,Functional Cognition Training,Functional Mobility,Neuromuscular Re- education,Therapeutic Exercises,Patient/Family Education,Discharge Planning Discharge Recommendations OT Discharge Recommendations SNF Rehab Transportation Needs at Discharge Wheelchair/Cabulance
[2022-06-13] MEDS: SCOPOLAMINE 1 PATCH TOP (15:52)
[2022-06-13] MEDS: HYDROCODONE/ACET 10/325 TABLET 1 TAB PO ×2 (15:53→21:20)
--- NOTE | 2022-06-13 17:41 | P.CONS_ITS ---
History of Present Illness Consult details Date Patient Seen: 06/13/22 Time Patient Seen: 17:41 Chief complaint: Suspected right sided CVA Reason for consult: Patient having pain from his lower remaining teeth. Requesting provider: Mica Asencio Home Medications and Allergies Home Medications Medication Instructions Recorded Confirmed Type sertraline 100 mg tablet (Zoloft) 100 mg PO DAILY 05/11/21 05/02/22 History acetaminophen 325 mg tablet 650 mg PO Q6HR PRN Fever/Mild Pain 05/12/21 05/01/22 Rx (1-3) #30 tabs fluticasone 250 mcg-salmeterol 50 1 inh inhalation BID #1 ea 05/12/21 05/02/22 Rx mcg/dose blistr powdr for inhalation albuterol sulfate 90 mcg/actuation 1 puff inhalation BID 05/01/22 05/01/22 History aerosol inhaler tiotropium bromide 2.5 2 puff inhalation DAILY 05/01/22 05/01/22 History mcg/actuation mist for inhalation (Spiriva Respimat) folic acid 1 mg tablet 1 mg PO DAILY #30 tabs 05/10/22 Rx Allergies Allergy/AdvReac Type Severity Reaction Status Date / Time amoxicillin [AMOXICILLIN] Allergy Unknown DOES NOT Verified 04/30/22 17:34 REMEMBER SOMETHING NOT GOOD Penicillins [PENICILLINS] Allergy Unknown CAN'T Verified 04/30/22 17:34 REMEMBER RX Exam Vital Signs (past 8 hours): Oxygen Delivery Method Room Air Oxygen Flow Rate 0 HENMT Mouth: oral mucosae normal, lip normal, tongue normal, salivary ducts normal and other (no intraoral swelling noted) Teeth and gingiva: poor dentition (edentulous in the maxilla with fractured teeth to the gingiva in mandible.) Objective Labs Result Diagrams: 06/12/22 06:53 06/12/22 06:41 [facility] Medical History (Updated 06/13/22 @ 17:45 by Venu Vega DMD) Asthma Chronic back pain greater than 3 months duration Closed intertrochanteric fracture of left femur Depression Drug abuse, IV History of CVA (cerebrovascular accident) Poor dentition Surgical History History of hernia repair Family History Father Unknown family medical history Mother No problems noted. Grandmother Myocardial infarction Grandfather No problems noted. Social History household members: friend(s) Tobacco & Substance Use Smoking Status: Current some day smoker alcohol intake: current Assessment & Plan Assessment and plan (1) Poor dentition: Status: Acute Plan No signs of acute infection so inpatient oral surgery not indicated. Recommend patient be seen for extraction of his remaining teeth upon discharge from the hospital. Time Spent With Patient Critical Care time: I spent a total of 10 minutes of critical care time on this patient's care today; this time is exclusive of procedural time.
[2022-06-13 20:35] VITALS: BP 124/70; PULSE 76; RESP 18; TEMP 36.6; O2SAT 97
[2022-06-13] MEDS: ATORVASTATIN 20 MG TABLET 40 MG PO (21:19)
[2022-06-13] MEDS: SENNOSIDES 8.6 MG TABLET PO (21:20)
[2022-06-13] MEDS: DOCUSATE 100 MG CAPSULE PO (21:20)
[2022-06-13] MEDS: LORazepam 1 MG TABLET 0.5 MG PO (21:23)
[2022-06-14] MEDS: CLINDAMYCIN 150 MG CAPSULE 450 MG PO ×2 (00:29→09:47)
[2022-06-14] MEDS: HYDROCODONE/ACET 10/325 TABLET 1 TAB PO ×5 (00:34→20:01)
[2022-06-14 07:00] VITALS: BP 130/76; PULSE 69; RESP 16; TEMP 37.2; O2SAT 96
--- NOTE | 2022-06-14 08:40 | P.PN_ITS ---
Subjective Subjective Date Patient Seen: 06/14/22 Time Patient Seen: 12:00 Interval history: Patient has no complaints today Exam Vital Signs (past 8 hours): - 06/14/22 07:00 Temperature 99.0 F Pulse Rate 69 Respiratory Rate 16 Blood Pressure 130/76 Pulse Oximetry 96 Oxygen Flow Rate 0 Oxygen Delivery Method Room Air Oxygen Flow Rate 0 Narrative Exam Narrative: GEN:? Middle-aged male, Alert and oriented x 3, appears uncomfortable, sitting up in a chair HEENT:NC, Face symmetric, he is essentially edentulous though it appears multiple teeth have been broken off the gum line, the painful area is in his right lower lower jaw and anterior lower jaw.? No obvious erythema/exud ate/induration/fluctuance. CHEST: Respiratory excursions symmetric, CTAB CV: RRR, no M/R/G ABD: Soft, NT/ND, BT present in all 4 quadrants, no organomegaly or masses EXTR: warm, well perfused, no C/C/E, right upper extremity remains weak, poor mobility lower SKIN: warm and dry, no rash NEURO: Alert and oriented x 3, persistent right upper extremity weakness Objective Labs Result Diagrams: 06/12/22 06:53 06/12/22 06:41 [facility] Medical History (Updated 06/13/22 @ 17:45 by Venu Vega DMD) Asthma Chronic back pain greater than 3 months duration Closed intertrochanteric fracture of left femur Depression Drug abuse, IV History of CVA (cerebrovascular accident) Poor dentition Surgical History History of hernia repair Family History Father Unknown family medical history Mother No problems noted. Grandmother Myocardial infarction Grandfather No problems noted. Social History household members: friend(s) Smoking Status: Current some day smoker alcohol intake: current Assessment & Plan Assessment & Plan narrative: 1. Dental pain Patient has multiple fractured teeth with just the root remaining in place.? Facial CT was done June 05 which revealed tiny residual roots of the lateral mandibular incisors and canines with adjacent periapical lucency.? No lytic or destructive lesion in the mandible.? No maxillary teeth present.? No acute soft tissue findings.? The periapical lucency could be consistent with dental abscess.? Started clindamycin on the evening of June 09.? No diarrhea.? Tolerating well thus far.? Continue hydrocodone and benzocaine for pain. -Dr. Vega oral surgeon assessed on 06/13 and did not think infection present, recommended tooth extraction as outpatient -stop clindamycin due to C. diff risk and no present infection -Orajel PRN 2. Generalized weakness Patient is chronically debilitated.? This admission he underwent 2 brain MRIs which for stroke, C-spine MRI with chronic pathology but no acute cord compression.? Remainder of workup was otherwise unremarkable.? He was initiated on Cymbalta 05/18 and gabapentin 05/21 with good results.? Patient's weakness is improving per report. 3. Hypertension Blood pressures remain normotensive.? He is not treated at baseline.? I am un certain where the hypertension diagnosis came from. 4. Hyperlipidemia Continue atorvastatin. 5. Polysubstance dependence Currently in remission 6. Prior stroke with residual right-sided weakness Continue aspirin and atorvastatin 7. Microcytic anemia Thalassemia screen negative. 8. Hepatitis-C Positive hep C antibody and hep C RNA greater than 1,000,000.? Will need outpatient follow-up. Resolved issues: Altered mental status/metabolic encephalopathy Oral thrush Acute respiratory failure due to pneumonia Pneumonia Dispo Awaiting placement. Time Spent With Patient Critical Care time: I spent a total of [] minutes of critical care time on this patient's care today; this time is exclusive of procedural time. Quality VTE Deep Vein Thrombosis/Pulmonary Embolism Present on Admission: No
[2022-06-14] MEDS: ORAJEL 1 EACH TOP ×3 (09:44→15:19)
[2022-06-14] MEDS: ASPIRIN EC 81 MG TABLET PO (09:45)
[2022-06-14] MEDS: IBUPROFEN 400 MG TABLET 600 MG PO ×3 (09:45→20:02)
[2022-06-14] MEDS: ENOXAPARIN 40 MG/0.4 ML SYRINGE SUBCUT (09:45)
[2022-06-14] MEDS: MULTIVITAMIN 1 TABLET 1 TAB PO (09:46)
[2022-06-14] MEDS: SENNOSIDES 8.6 MG TABLET PO ×2 (09:46→20:03)
[2022-06-14] MEDS: FOLIC ACID 1 MG TABLET PO (09:46)
[2022-06-14] MEDS: DULOXETINE 30 MG CAPSULE 60 MG PO (09:46)
[2022-06-14] MEDS: DOCUSATE 100 MG CAPSULE PO ×2 (09:46→20:01)
[2022-06-14] MEDS: GABAPENTIN 400 MG CAPSULE PO ×3 (09:46→20:01)
[2022-06-14] MEDS: PANTOPRAZOLE DR 40 MG TABLET PO ×2 (09:46→20:03)
[2022-06-14] MEDS: fentaNYL 12 MCG/PATCH TOP (11:46)
--- NOTE | 2022-06-14 12:07 | PT.IPTN ---
Current Diagnoses Depression, unspecified (05/01/22) Cerebral infarction, unspecified (05/01/22) Disorder of teeth and supporting structures, unspecified (05/01/22) Spinal stenosis, cervical region (05/01/22) Physical Therapy Treatment Note M2 PT-IP Current Condition Start: 05/07/22 09:18 Freq: NEEDED Status: Active Protocol: Document 05/18/22 13:22 SP (Rec: 05/18/22 16:05 SP [id number]) Physical Therapy Current Condition Current Condition Evaluation Date 05/07/22 Treatment Diagnosis metabolic encephalopathy; polysubstance withdrawal; impaired mobility Onset Date 04/30/22 M3 PT-IP Subjective Start: 05/07/22 09:18 Freq: NEEDED Status: Active Protocol: Document 06/14/22 11:42 KS (Rec: 06/14/22 14:01 KS [id number]) Subjective Physical Therapy Visit Type Type Treatment Note Visit Start Time 11:42 Visit Stop Time 12:07 Total Visit Minutes 25 Notes Co-treat w/ OT d/t pts needs for assist. Number of POWDER NIPPER Visits 3 Therapy Pain Assessment Pain When Pain Assessed At Rest Pain Present Pain Present Pain Reported Location teeth Intensity 8 Scale Used Numeric (0 - 10) Description Aching Pain Behaviors Facial Grimacing,Guarding, Moaning,Restlessness,Wincing Pain Management Techniques Distraction,Modification of Treatment Neck Intensity 8 Scale Used Numeric (0 - 10) Description Aching Pain Behaviors Facial Grimacing,Guarding, Moaning,Restlessness,Wincing Pain Management Techniques Distraction,Modification of Treatment,Re-positioning M4 PT-IP Mobility and Gait Start: 05/07/22 09:18 Freq: NEEDED Status: Active Protocol: Document 06/14/22 11:42 KS (Rec: 06/14/22 14:01 KS [id number]) PT-Bed Mobility Assessment Supine to Sit Supine to Sit Minimal Assistance,1 Person Assistance,Bedrails Scooting Scooting to Edge of Bed Moderate Assistance PT-Transfer Assessment Transfers Transfer Destination Chair Transfer Technique Squat Pivot Transfer Ability Level of Assist Moderate Assistance,2 Person Assistance,Use of Upper Extremities Comments Mobility Comments Pt in bed upon arrival and reporting 8/10 pain in teeth and neck. Pt somber today but willing to participate. Able to perform bridges and rolling in bed to aga and doff new brief. Min A for sidelying<> sit and Mod A for scooting EOB . Pt then performed squat pivot transfer from bed to chair w/ Mod A x2. Pt expressed fatigue following transfer and therefore did not progress gait or standing balance this date. Gait Assessment Comments Gait Comments Did not assess today. PT-Balance Assessment Sitting Balance and Reactions Static Sitting Balance Ability Fair Dynamic Sitting Balance Ability Poor Standing Balance and Reactions Static Standing Balance Ability Poor Dynamic Standing Balance Ability Poor Device Used PFW M5 PT-IP Objective Assessments Start: 05/07/22 09:18 Freq: NEEDED Status: Active Protocol: Document 05/07/22 11:05 AW (Rec: 05/07/22 13:30 AW [id number]) Orientation Orientation/Cognition Level of Alertness Lethargic Orientation Name,Month,Place Safety Awareness Decreased Safety Awareness Gross Range of Motion Lower Extremity ROM Assessment Within Functional Limits Strength Lower Extremity Strength Assessment Bilaterally Impaired Comments Strength Comments R grossly 3-/5. L grossly 3+/5 Coordination Assessment Gross Coordination Gross Coordination Impaired Assessment Finger to Nose Test Activity Impossible Foot Tapping Test Minimal Impairment Coordination Comments Pt limited by BUE weakness with UE coordination testing. Sensation Assessment Sensation Gross Sensation WNL Muscle Tone Muscle Tone WNL Yes M6 PT-IP Treatment Start: 05/07/22 09:18 Freq: NEEDED Status: Active Protocol: Document 06/14/22 11:42 KS (Rec: 06/14/22 14:01 NH [id number]) Physical Therapy Treatment Education Education Provided Safety Other Treatments Other Treatment Performed Attempted seated perturbatinos but pt too fatigued. M7 PT-IP Assessment and Plan Start: 05/07/22 09:18 Freq: NEEDED Status: Active Protocol: Document 06/14/22 11:42 KS (Rec: 06/14/22 14:01 NH [id number]) PT Summary Assessment and Plan Potential Rehabilitation Potential Fair Summary Impairments Pain,ROM,Strength,Balance, Coordination,Sensation,Tone, Cognition,Bed Mobility, Transfers,Gait,Activity Tolerance Assessment Summary Pt limited by pain and fatigue this treatment. Min to Mod A for bed mobility and Mod A x2 for squat pivot transfer. Pt unable to tolerate seated perturbations due to fatigue. At this time, pt will require SNF to improve strength, activity tolerance, and functional mobility independence. Goals Bed Mobility Goal Contact Guard Assistance Transfer Goal Moderate Assistance Gait Goal Moderate Assistance Gait Distance 100 Other Goals transfers and ambulation using PFW/hemiwalker Days to Meet Goals 10 Frequency of Treatment Frequency Of Treatment Once a Day Treatment Plan Physical Therapy Treatment Plan Bed Mobility Training,Transfer Training,Gait Training, Therapeutic Exercise,Balance Retraining,Discharge Planning, Hot or Cold Pack,Neuromuscular Re-ed,Coordination Retraining Other Recommendations and Next Treatment sitting balance/tolerance; Focus trunk exercises; standing balance/tolerance Precautions Other Precautions seizure precautions; falls risk Recommendations To Nursing Amount of Assist Needed 2 Person Assist Discharge Recommendations PT Discharge Recommendations SNF Rehab Transportation Needs at Discharge Wheelchair/Cabulance
--- NOTE | 2022-06-14 12:09 | OT.IP.TRT ---
Current Diagnoses Depression, unspecified (05/01/22) Cerebral infarction, unspecified (05/01/22) Disorder of teeth and supporting structures, unspecified (05/01/22) Spinal stenosis, cervical region (05/01/22) Occupational Therapy Treatment Note M2 OT-IP Current Condition Start: 05/07/22 12:13 Freq: Status: Active Protocol: Document 05/07/22 12:13 CGR (Rec: 05/07/22 12:37 CGR [id number]) Occupational Therapy Current Condition Current Condition Evaluation Date 05/07/22 Treatment Diagnosis generalized weakness, hx IV drug use, R CVA 2015 Diagnosis Onset Date 05/01/22 M3 OT- IP Subjective and Pain Start: 05/07/22 12:13 Freq: Status: Active Protocol: Document 06/14/22 11:24 [facility] (Rec: 06/14/22 12:49 [facility] [id number]) OT- Subjective Occupational Therapy Visit Type Type Treatment Note Visit Start Time 11:24 Visit Stop Time 12:09 Total Visit Minutes 45 Occupational Therapy Visit Comments Patient Comments Prt agreed to work with OT and then at the TUMBLER MACHINE OPERATOR HELPER can to assist for mobility needs. Patient/Caregiver Goals To be able to walk. OT Pain Assessment Pain When Pain Assessed At Rest Pain Present Pain Present Pain Reported Location teeth Intensity 7 Scale Used Numeric (0 - 10) M4 OT- IP ADL's Start: 05/07/22 12:13 Freq: Status: Active Protocol: Document 06/14/22 11:24 [facility] (Rec: 06/14/22 12:49 [facility] [id number]) OT [id number] Comments OT Self-Feeding Comments Asked nursing whether pt's food is cut up for him to increased ease to eat. Pt states kitchen working on getting a plate guard for him to use while eating. OT ADL-Grooming General Evaluation Grooming Ability Standby Assistance,Total Assistance Comments OT Grooming Comments Pt able to wash his face after set-up. Total assist to help put his hair up in a pony tail . OT ADL-Oral Care Comments Oral Care Comments Pt states did prior. OT ADL-Dressing General Eval Lower Body Dressing Ability Moderate Assistance Areas Needing Assistance Underpants/Brief Comments OT Dressing Comments Assist to hold his right knee in place so pt able to bridge up and assist to help pull up the brief in the back. pt able to aga brief over his feet after HOB raised up for him. OT ADL-Toileting General Evaluation Toileting Ability Moderate Assistance Areas Needing Assistance Manage Clothing Comments OT Toileting Comments Pt able to wipe with wash cloth after set-up. Pt needing assist to help get brief up over his hips in supine. M5 OT- IP IADL's Start: 05/07/22 12:13 Freq: Status: Active Protocol: Document 05/07/22 12:13 CGR (Rec: 05/07/22 12:37 CGR [id number]) OT-Instrumental Activities of Daily Living Deficits IADL Deficits Identified Deficits Home Safety Awareness Awareness of Need for Assistance at Home Decreased Awareness Ability to Problem Solve Emergency Unable to Problem Solve Situations Medication Management Medication Management Comments Concerns about pt's ability to perform consistently Money Management Money Management Comments Concerns about pt's ability to perform consistently Meal Preparation Meal Preparation Comments Concerns about pt's ability to perform consistently Bulk Plant Supervisor Bulk Plant Supervisor Comments Concerns about pt's ability to perform consistently M6 OT- IP Functional Cognition Start: 05/07/22 12:13 Freq: Status: Active Protocol: Document 06/14/22 11:24 [facility] (Rec: 06/14/22 12:49 [facility] [id number]) Cognitive Factors Limiting Selfcare Function Cognitive Comments Cognitive Assessment Comments Educating pt how to use the remote to assist for bed positioning to increased ease to use the urinal on his own. M7 OT- IP Mobility and Balance Start: 05/07/22 12:13 Freq: Status: Active Protocol: Document 06/14/22 11:24 [facility] (Rec: 06/14/22 12:49 [facility] [id number]) OT- Bed Mobility Assessment Supine to Sit Supine to Sit Assist Moderate Assistance OT-Transfer Assessment Transfers Transfer Ability Moderate Assistance,2 Person Assistance Technique Transfer Destination Bed,Chair Transfer Technique Squat Pivot Devices Transfer Assistive Devices Gait Belt Comments Mobility Comments Pt more tired today and able to just mainly tolerate transfer squat pivot to the recliner. OT- Balance Assessment Sitting Balance and Reactions Static Sitting Balance Ability Fair Dynamic Sitting Balance Ability Poor M9 OT- IP Assessment and Plan Start: 05/07/22 12:13 Freq: Status: Active Protocol: Document 06/14/22 11:24 [facility] (Rec: 06/14/22 12:49 [facility] [id number]) OT Summary Assessment and Plan Potential Rehabilitation Potential Good Analytic Complexity at Evaluation High Summary OT Impairments Pain,Strength,Balance, Coordination,Functional Cognition,Functional Mobility, Self-Feeding,Grooming,Dressing ,Toileting,Bathing,Toilet Transfers,Shower Transfers, Activity Tolerance Progress Towards Goals Slow Progress due to Pain,Slow Progress due to Medical Issues,Slow Progress due to Activity Tolerance Assessment Summary Pt agreed to try to work on independence more with self toileting- hygiene and brief management needs. Pt states tired today and having spasms, notified nursing of his spasms on his LUE as well. Goals Self-Feeding Goal Standby Assistance Grooming Goal Minimal Assistance Dressing Goal Moderate Assistance Toileting Goal Moderate Assistance Bathing Goal Moderate Assistance Toilet Transfer Goal Minimal Assistance Shower Transfer Goal Minimal Assistance Days to Meet Goals 45 Frequency of Treatment Frequency Of Treatment Twice a Day Treatment Plan OT Treatment Plan ADL Training,Functional Cognition Training,Functional Mobility,Neuromuscular Re- education,Therapeutic Exercises,Patient/Family Education,Discharge Planning Discharge Recommendations OT Discharge Recommendations SNF Rehab Transportation Needs at Discharge Wheelchair/Cabulance
--- NOTE | 2022-06-14 15:10 | OT.IPNOTE ---
Went to check on the pt, pt needing assist to reposition in the recliner and not wanting to up at this time.
[2022-06-14] MEDS: ATORVASTATIN 20 MG TABLET 40 MG PO (20:00)
[2022-06-14] MEDS: LORazepam 0.5 MG TABLET PO (20:14)
[2022-06-14 20:15] VITALS: BP 129/72; PULSE 74; RESP 18; TEMP 36.6; O2SAT 95
[2022-06-15] MEDS: HYDROCODONE/ACET 10/325 TABLET 1 TAB PO ×6 (00:34→20:57)
--- NOTE | 2022-06-15 05:21 | PM.CALLCOV.1 ---
Call Coverage Note Note Date of Patient Contact: 06/15/22 Time of Patient Contact: 05:21 Narrative of Care Provided: Nursing informed me that his right hand is very swollen. Swelling includes all of his hand, digits up to his lower wrist. Unable to flex, though this is his weak hand. He is ordered for labs including an ESR. Will discuss what if any imaging is appropriate to identify possible abcess vs cellulitis.
--- NOTE | 2022-06-15 08:03 | PM.PN.1 ---
Subjective Subjective Date Patient Seen: 06/15/22 Time Patient Seen: 16:00 Interval history: Patient denies any complaints. Sitting up in chair eating. Exam Vital Signs (past 8 hours): Oxygen Delivery Method Room Air Oxygen Flow Rate 0 Narrative Exam Narrative: GEN:? Middle-aged male, Alert and oriented x 3, appears uncomfortable, sitting up in a chair HEENT:NC, Face symmetric, he is essentially edentulous though it appears multiple teeth have been broken off the gum line, the painful area is in his right lower lower jaw and anterior lower jaw.? No obvious erythema/exudate/induration/fluctuance. CHEST: Respiratory excursions symmetric, CTAB CV: RRR, no M/R/G ABD: Soft, NT/ND, BT present in all 4 quadrants, no organomegaly or masses EXTR: warm, well perfused, no C/C/E, right upper extremity remains weak, poor mobility lower SKIN: warm and dry, no rash NEURO: Alert and oriented x 3, persistent right upper extremity weakness Objective Labs Result Diagrams: 06/15/22 10:51 06/15/22 10:51 [facility] Medical History (Updated 06/13/22 @ 17:45 by Venu Vega DMD) Asthma Chronic back pain greater than 3 months duration Closed intertrochanteric fracture of left femur Depression Drug abuse, IV History of CVA (cerebrovascular accident) Poor dentition Surgical History History of hernia repair Family History Father Unknown family medical history Mother No problems noted. Grandmother Myocardial infarction Grandfather No problems noted. Social History household members: friend(s) Smoking Status: Current some day smoker alcohol intake: current Assessment & Plan Assessment & Plan narrative: 1. Dental pain Patient has multiple fractured teeth with just the root remaining in place.? Facial CT was done June 05 which revealed tiny residual roots of the lateral mandibular incisors and canines with adjacent periapical lucency.? No lytic or destructive lesion in the mandible.? No maxillary teeth present.? No acute soft tissue findings.? The periapical lucency could be consistent with dental abscess.? Started clindamycin on the evening of June 09.? No diarrhea.? Tolerating well thus far.? Continue hydrocodone and benzocaine for pain. -Dr. Vega oral surgeon assessed on 06/13 and did not think infection present, recommended tooth extraction as outpatient -Neva MCCARTNEYN 2. Generalized weakness Patient is chronically debilitated.? This admission he underwent 2 brain MRIs which for stroke, C-spine MRI with chronic pathology but no acute cord compression.? Remainder of workup was otherwise unremarkable.? He was initiated on Cymbalta 05/18 and gabapentin 05/21 with good results.? Patient's weakness is improving per report. 3. Hypertension Blood pressures remain normotensive.? He is not treated at baseline.? I am uncertain where the hypertension diagnosis came from. 4. Hyperlipidemia Continue atorvastatin. 5. Polysubstance dependence Currently in remission 6. Prior stroke with residual right-sided weakness Continue aspirin and atorvastatin 7. Microcytic anemia Thalassemia screen negative. 8. Hepatitis-C Positive hep C antibody and hep C RNA greater than 1,000,000.? Will need outpatient follow-up. Resolved issues: Altered mental status/metabolic encephalopathy Oral thrush Acute respiratory failure due to pneumonia Pneumonia Dispo Awaiting placement. Time Spent With Patient Critical Care time: I spent a total of [] minutes of critical care time on this patient's care today; this time is exclusive of procedural time. Quality VTE Deep Vein Thrombosis/Pulmonary Embolism Present on Admission: No
[2022-06-15 09:34] VITALS: BP 123/68; PULSE 69; RESP 24; TEMP 36.7; O2SAT 98
[2022-06-15] MEDS: ORAJEL 1 EACH TOP ×3 (10:15→20:56)
[2022-06-15] MEDS: ASPIRIN EC 81 MG TABLET PO (10:23)
[2022-06-15] MEDS: ENOXAPARIN 40 MG/0.4 ML SYRINGE SUBCUT (10:23)
[2022-06-15] MEDS: LORazepam 0.5 MG TABLET PO (10:23)
[2022-06-15] MEDS: DOCUSATE 100 MG CAPSULE PO ×2 (10:24→20:57)
[2022-06-15] MEDS: DULOXETINE 30 MG CAPSULE 60 MG PO (10:24)
[2022-06-15] MEDS: GABAPENTIN 400 MG CAPSULE PO ×3 (10:24→20:57)
[2022-06-15] MEDS: PANTOPRAZOLE DR 40 MG TABLET PO ×2 (10:24→20:58)
[2022-06-15] MEDS: SENNOSIDES 8.6 MG TABLET PO ×2 (10:24→20:58)
[2022-06-15] MEDS: IBUPROFEN 400 MG TABLET 600 MG PO ×3 (10:24→20:57)
[2022-06-15] MEDS: FOLIC ACID 1 MG TABLET PO (10:24)
[2022-06-15] MEDS: MULTIVITAMIN 1 TABLET 1 TAB PO (10:24)
[2022-06-15 11:00] LABS: Add Manual Diff / Slide Review NO; Basophils Absolute Auto 0 /uL (0-100); Basophils Percent Auto 0.4 % (0-2); Eosinophils Absolute Auto 100 /uL (0-450); Eosinophils Percent Auto 2.7 % (2-4); Hematocrit 33.8 % (41-53); Lymphocytes Absolute Auto 1300 /uL (1100-4500); Lymphocytes Percent Auto 27.8 % (25-40); Mean Corpuscular HGB Conc 32.5 % (30-36); Mean Corpuscular Hemoglobin 23.2 PG (26-34); Mean Corpuscular Volume 71.5 fL (80-100); Monocytes Absolute Auto 300 /uL (0-900); Monocytes Percent Auto 6.3 % (3-14); Neutrophils Absolute Auto 2900 /uL (1500-7000); Neutrophils Percent Auto 62.8 % (50-75); Platelet Count 191 X10^3/uL (150-400); Red Blood Cell Count 4.73 X10^6/uL (4.5-5.9); Red Cell Distribution Width 21.5 % (11.6-14.8); White Blood Cell Count 4.6 X10^3/uL (4.5-11.0)
[2022-06-15 11:16] LABS: BUN Creatinine Ratio 45.3 (6-22); Blood Urea Nitrogen 24 mg/dL (9-20); Calcium 8.5 mg/dL (8.4-10.2); Carbon Dioxide 30 mmol/L (22-32); Chloride 103 mmol/L (98-107); Estimated Glomerular Filt Rate > 60 mL/min (>60); Glucose 105 mg/dL (80-110); HEMOLYSIS < 15 (0-50); Potassium 4.2 mmol/L (3.4-5.1); Sodium 138 mmol/L (137-145)
[2022-06-15 11:29] LABS: Microcytosis 2+
[2022-06-15 11:30] LABS: Hypochromasia 1+
--- NOTE | 2022-06-15 11:30 | PT-IP ANOTE ---
Attempted to see pt at 11:30, pt requested PM treatment due to fatigue.
[2022-06-15 11:31] LABS: Erythrocyte Sedimentation Rate 17 MM/HR (0-15)
--- NOTE | 2022-06-15 11:40 | OT.IPNOTE ---
Pt just waking up and wanting to wait to be seen after lunch instead.
--- NOTE | 2022-06-15 14:00 | OT.IP.TRT ---
Current Diagnoses Depression, unspecified (05/01/22) Cerebral infarction, unspecified (05/01/22) Disorder of teeth and supporting structures, unspecified (05/01/22) Spinal stenosis, cervical region (05/01/22) Occupational Therapy Treatment Note M2 OT-IP Current Condition Start: 05/07/22 12:13 Freq: Status: Active Protocol: Document 05/07/22 12:13 CGR (Rec: 05/07/22 12:37 CGR [id number]) Occupational Therapy Current Condition Current Condition Evaluation Date 05/07/22 Treatment Diagnosis generalized weakness, hx IV drug use, R CVA 2015 Diagnosis Onset Date 05/01/22 M3 OT- IP Subjective and Pain Start: 05/07/22 12:13 Freq: Status: Active Protocol: Document 06/15/22 14:00 CCC (Rec: 06/15/22 14:17 CCC [id number]) OT- Subjective Occupational Therapy Visit Type Type Treatment Note Visit Start Time 13:15 Visit Stop Time 14:00 Total Visit Minutes 45 Occupational Therapy Visit Comments Patient Comments Pt wanting to shower and have a bowel movement. Patient/Caregiver Goals TO get better. OT Pain Assessment Pain When Pain Assessed At Rest Pain Present Pain Present Pain Reported M4 OT- IP ADL's Start: 05/07/22 12:13 Freq: Status: Active Protocol: Document 06/15/22 14:00 [facility] (Rec: 06/15/22 14:17 [facility] [id number]) OT [id number] Comments OT Self-Feeding Comments NOt at meal time. OT ADL-Grooming Comments OT Grooming Comments Pt able to wash his face after set-up. Assist to brush his hair after shower. OT ADL-Oral Care Comments Oral Care Comments Pt states did prior. OT ADL-Dressing General Eval Lower Body Dressing Ability Maximum Assistance,Total Assistance Areas Needing Assistance Underpants/Brief,Socks Comments OT Dressing Comments Pt tired from showering and needing mAX/total assist for brief and socks today. OT ADL-Toileting General Evaluation Toileting Ability Maximum Assistance,Total Assistance Comments OT Toileting Comments Assist for hygiene and brief needs. OT ADL-Bathing Bathing Type Bathing Type Shower General Evaluation Bathing Ability Maximal Assistance Areas Needing Assistance Wash/Dry Upper Body,Wash/Dry Back,Wash/Dry Perineal Area, Wash/Dry Lower Extremities Comments OT Bathing Comments Pt able to assist with his face,chest and RUE, upper legs and groin area and needing assist for the rest. M6 OT- IP Functional Cognition Start: 05/07/22 12:13 Freq: Status: Active Protocol: Document 06/15/22 14:00 [facility] (Rec: 06/15/22 14:17 [facility] [id number]) Cognitive Factors Limiting Selfcare Function Cognitive Comments Cognitive Assessment Comments Pt more tried today but wanting to shower and still able to express his needs and at times needing to be asked if he needing assist. M7 OT- IP Mobility and Balance Start: 05/07/22 12:13 Freq: Status: Active Protocol: Document 06/15/22 14:00 [facility] (Rec: 06/15/22 14:17 [facility] [id number]) OT- Bed Mobility Assessment Supine to Sit Supine to Sit Assist Moderate Assistance Scooting Scooting to Edge of Bed Maximum Assistance OT-Transfer Assessment Sit to and From Stand Sit to and from Stand Minimal Assistance,Maximum Assistance,1 Person Assistance ,2 Person Assistance Transfers Transfer Ability Moderate Assistance,Maximum Assistance,1 Person Assistance ,2 Person Assistance Technique Transfer Destination Bed,Chair,Shower Stall,Toilet Transfer Technique Squat Pivot Devices Transfer Assistive Devices Gait Belt Comments Mobility Comments Pt able to tolerate multiple transfers. Initial transfer to his 4ww MAX X 1 stand pivot, transfer from 4ww to toilet with holding to therapist MAX XA 1 and CGAx1 to help guide his hips. Transfer back to the 4WW MAX AX 1 and MODA X 1 . Transfer to recliner MODA X 2 as pt tiring. Pt does better when able to get a hold of a grab bar to assist for his balance. OT- Balance Assessment Sitting Balance and Reactions Static Sitting Balance Ability Fair Dynamic Sitting Balance Ability Poor Standing Balance and Reactions Static Standing Balance Ability Poor Dynamic Standing Balance Ability Poor Comments Other Balance Tests/Deviations/Treatment Pt able to sit on his 4ww for : a shower in more upright position and not having to hold to the grab bar for his balance today versus last time shower with OT needing use of grab bar to help sit upright. M9 OT- IP Assessment and Plan Start: 05/07/22 12:13 Freq: Status: Active Protocol: Document 06/15/22 14:00 [facility] (Rec: 06/15/22 14:17 CCC [id number]) OT Summary Assessment and Plan Potential Rehabilitation Potential Good Analytic Complexity at Evaluation High Summary OT Impairments Pain,Strength,Balance, Coordination,Functional Cognition,Functional Mobility, Self-Feeding,Grooming,Dressing ,Toileting,Bathing,Toilet Transfers,Shower Transfers, Activity Tolerance Progress Towards Goals Slow Progress due to Pain,Slow Progress due to Medical Issues,Slow Progress due to Activity Tolerance Assessment Summary Pt able to tolerate multiple transfer today to be able to use the toilet and take a shower. Pt still would benefit from skilled rehab to help maximize his independence with his needs and hopefully get him to just needing one person to help assist with his needs . Otherwise pt would requires LTC. Goals Self-Feeding Goal Standby Assistance Grooming Goal Minimal Assistance Dressing Goal Moderate Assistance Toileting Goal Moderate Assistance Bathing Goal Moderate Assistance Toilet Transfer Goal Minimal Assistance Shower Transfer Goal Minimal Assistance Days to Meet Goals 44 Frequency of Treatment Frequency Of Treatment Twice a Day Treatment Plan OT Treatment Plan ADL Training,Functional Cognition Training,Functional Mobility,Neuromuscular Re- education,Therapeutic Exercises,Patient/Family Education,Discharge Planning Discharge Recommendations OT Discharge Recommendations SNF Rehab,LTAC Transportation Needs at Discharge Wheelchair/Cabulance
--- NOTE | 2022-06-15 14:40 | PT.IPTN ---
Current Diagnoses Depression, unspecified (05/01/22) Cerebral infarction, unspecified (05/01/22) Disorder of teeth and supporting structures, unspecified (05/01/22) Spinal stenosis, cervical region (05/01/22) Physical Therapy Treatment Note M2 PT-IP Current Condition Start: 05/07/22 09:18 Freq: NEEDED Status: Active Protocol: Document 05/18/22 13:22 SP (Rec: 05/18/22 16:05 SP [id number]) Physical Therapy Current Condition Current Condition Evaluation Date 05/07/22 Treatment Diagnosis metabolic encephalopathy; polysubstance withdrawal; impaired mobility Onset Date 04/30/22 M3 PT-IP Subjective Start: 05/07/22 09:18 Freq: NEEDED Status: Active Protocol: Document 06/15/22 14:25 KS (Rec: 06/15/22 16:05 KS [id number]) Subjective Physical Therapy Visit Type Type Treatment Note Visit Start Time 14:25 Visit Stop Time 14:40 Total Visit Minutes 15 Number of HEATING AND VENTILATION ENGINEER Visits 4 M4 PT-IP Mobility and Gait Start: 05/07/22 09:18 Freq: NEEDED Status: Active Protocol: Document 06/15/22 14:25 KS (Rec: 06/15/22 16:05 KS [id number]) PT-Bed Mobility Assessment Scooting Scooting to Edge of Bed Contact Guard Assistance PT-Transfer Assessment Sit to and From Stand Sit to and from Stand Maximum Assistance,1 Person Assistance,Use of Upper Extremities Equipment Transfer Assistive Device Gait Belt,Platform Walker Transfers Transfer Destination Chair Transfer Technique sit<>stand Comments Mobility Comments Pt in chair upon arrival and reporting fatigue following shower, but agreeable to participate and practice sit<> stands. Pt CGA and cues for scooting to EOC. Max A and cues for sit<>stand w/ PFW. Pt stood ~30 seconds on first stand w/ cues for upright posture and knee extension. Pt took ~2 min seated rest break w/ max a for controlled descent and then performed additional sit<>stand w/ Max A . Pt only able to stand ~15 seconds and unable to participate further due to fatigue. Pt left in chair w/ all needs in reach. Gait Assessment Comments Gait Comments Did not assess today. PT-Balance Assessment Sitting Balance and Reactions Static Sitting Balance Ability Fair Dynamic Sitting Balance Ability Poor Standing Balance and Reactions Static Standing Balance Ability Poor Dynamic Standing Balance Ability Poor Device Used PFW M5 PT-IP Objective Assessments Start: 05/07/22 09:18 Freq: NEEDED Status: Active Protocol: Document 05/07/22 11:05 AW (Rec: 05/07/22 13:30 AW [id number]) Orientation Orientation/Cognition Level of Alertness Lethargic Orientation Name,Month,Place Safety Awareness Decreased Safety Awareness Gross Range of Motion Lower Extremity ROM Assessment Within Functional Limits Strength Lower Extremity Strength Assessment Bilaterally Impaired Comments Strength Comments R grossly 3-/5. L grossly 3+/5 Coordination Assessment Gross Coordination Gross Coordination Impaired Assessment Finger to Nose Test Activity Impossible Foot Tapping Test Minimal Impairment Coordination Comments Pt limited by BUE weakness with UE coordination testing. Sensation Assessment Sensation Gross Sensation WNL Muscle Tone Muscle Tone WNL Yes M6 PT-IP Treatment Start: 05/07/22 09:18 Freq: NEEDED Status: Active Protocol: Document 06/15/22 14:25 KS (Rec: 06/15/22 16:05 KS [id number]) Physical Therapy Treatment Education Education Provided Safety M7 PT-IP Assessment and Plan Start: 05/07/22 09:18 Freq: NEEDED Status: Active Protocol: Document 06/15/22 14:25 KS (Rec: 06/15/22 16:05 KS [id number]) PT Summary Assessment and Plan Potential Rehabilitation Potential Fair Summary Impairments Pain,ROM,Strength,Balance, Coordination,Sensation,Tone, Cognition,Bed Mobility, Transfers,Gait,Activity Tolerance Assessment Summary Pt limited by low activity tolerance today, but able to perform 2x sit<>Stands w/ Max A x1 and PFW. Pt needed Mod A to maintain balance while standing. At this time, pt will require SNF to improve strength, activity tolerance, and functional mobility independence and decrease need for assist. Goals Bed Mobility Goal Contact Guard Assistance Transfer Goal Moderate Assistance Gait Goal Moderate Assistance Gait Distance 100 Other Goals transfers and ambulation using PFW/hemiwalker Days to Meet Goals 10 Frequency of Treatment Frequency Of Treatment Once a Day Treatment Plan Physical Therapy Treatment Plan Bed Mobility Training,Transfer Training,Gait Training, Therapeutic Exercise,Balance Retraining,Discharge Planning, Hot or Cold Pack,Neuromuscular Re-ed,Coordination Retraining Other Recommendations and Next Treatment sitting balance/tolerance; Focus trunk exercises; standing balance/tolerance Precautions Other Precautions seizure precautions; falls risk Recommendations To Nursing Amount of Assist Needed 2 Person Assist Discharge Recommendations PT Discharge Recommendations SNF Rehab,LTAC Transportation Needs at Discharge Wheelchair/Cabulance
--- NOTE | 2022-06-15 17:26 | PC.NURSE ---
Day shift: Pt OOB and had a shower today. He said he feels better after the shower. Medicated for back and neck pain per MAR. Pt also using the Oragel for tooth/gum pain. Eating Cheetos without difficulty today. Remains on dysphasia diet. No IV access and phlebotomy had difficulty drawing blood this AM. Pt has been calm and copperative with care. VS WNL. RA 97%. Sitting in chair for dinner and tolerating well. He remains 2 person pivot assist. Call light in reach. Will continue with plan of care.
[2022-06-15 19:40] VITALS: BP 136/66; PULSE 66; RESP 18; TEMP 36.6; O2SAT 100
[2022-06-15] MEDS: ATORVASTATIN 20 MG TABLET 40 MG PO (20:56)
[2022-06-15] MEDS: LORazepam 1 MG TABLET 0.5 MG PO (21:01)
--- NOTE | 2022-06-15 22:24 | PC.NURSE ---
Patient is oriented except did not really remember what originally brought him to the hospital. Breath sounds CTA with RA sat of 100%. HRR. Denied nausea. BT present and abdomen is soft. Voiding both continent and incontinent at times; denies dysuria. Is assisted to reposition in bed as not moving by himself but will assist. Transferring chair to bed with 1-2 assists and walker; continues to be seen by both PT and OT. Complains of pain in back, neck and head and was medicated with scheduled Vicodin and Ibuprofen earlier and is currently asleep. Refused SCD's so reminded to ankle wave. Fall risk score is high and bed alarm is activated.
[2022-06-16] MEDS: HYDROCODONE/ACET 10/325 TABLET 1 TAB PO ×6 (00:55→20:49)
[2022-06-16] MEDS: ORAJEL 1 EACH TOP ×6 (00:56→20:48)
--- NOTE | 2022-06-16 07:05 | P.PN_ITS ---
Subjective Subjective Date Patient Seen: 06/16/22 Time Patient Seen: 07:12 Interval history: No complaints today other than right hand swelling. Exam Vital Signs (past 8 hours): Oxygen Delivery Method Room Air Oxygen Flow Rate 0 Narrative Exam Narrative: GEN:? Middle-aged male, Alert and oriented x 3, appears uncomfortable, sitting up in a chair HEENT:NC, Face symmetric, he is essentially edentulous though it appears multiple teeth have been broken off the gum line, the painful area is in his right lower lower jaw and anterior lower jaw.? No obvious erythema/exudate/induration/fluctuance. CHEST: Respiratory excursions symmetric, CTAB CV: RRR, no M/R/G ABD: Soft, NT/ND, BT present in all 4 quadrants, no organomegaly or masses EXTR: warm, well perfused, right upper extremity remains weak with swelling of the hand present, poor mobility lower SKIN: warm and dry, no rash NEURO: Alert and oriented x 3, persistent right upper extremity weakness Objective Labs Result Diagrams: 06/15/22 10:51 06/15/22 10:51 Labs: Laboratory Results - last 24 hr 06/15/22 06/15/22 10:51 10:51 WBC 4.6 RBC 4.73 Hgb 11.0 L Hct 33.8 L MCV 71.5 L MCH 23.2 L MCHC 32.5 RDW 21.5 H Plt Count 191 Neut % (Auto) 62.8 Lymph % (Auto) 27.8 Ritchie % (Auto) 6.3 Eos % (Auto) 2.7 Baso % (Auto) 0.4 Neut # (Auto) 2900 Lymph # (Auto) 1300 Ritchie # (Auto) 300 Eos # (Auto) 100 Baso # (Auto) 0 RBC Morphology See below Hypochromasia 1+ H Microcytosis 2+ H ESR 17 H Sodium 138 Potassium 4.2 Chloride 103 Carbon Dioxide 30 BUN 24 H Creatinine 0.53 L Estimated GFR > 60 BUN/Creatinine Ratio 45.3 H Glucose 105 Calcium 8.5 PFSH Medical History (Updated 06/13/22 @ 17:45 by Venu Vega DMD) Asthma Chronic back pain greater than 3 months duration Closed intertrochanteric fracture of left femur Depression Drug abuse, IV History of CVA (cerebrovascular accident) Poor dentition Surgical History History of hernia repair Family History Father Unknown family medical history Mother No problems noted. Grandmother Myocardial infarction Grandfather No problems noted. Social History household members: friend(s) Smoking Status: Current some day smoker alcohol intake: current Assessment & Plan Assessment & Plan narrative: 1. Dental pain Patient has multiple fractured teeth with just the root remaining in place.? Facial CT was done June 05 which revealed tiny residual roots of the lateral mandibular incisors and canines with adjacent periapical lucency.? No lytic or destructive lesion in the mandible.? No maxillary teeth present.? No acute soft tissue findings.? The periapical lucency could be consistent with dental abscess.? Started clindamycin on the evening of June 09.? No diarrhea.? Tolerating well thus far.? Continue hydrocodone and benzocaine for pain. -Dr. Vega oral surgeon assessed on 06/13 and did not think infection present, recommended tooth extraction as outpatient -Orajel PRN 2. Generalized weakness Patient is chronically debilitated.? This admission he underwent 2 brain MRIs which for stroke, C-spine MRI with chronic pathology but no acute cord compression.? Remainder of workup was otherwise unremarkable.? He was initiated on Cymbalta 05/18 and gabapentin 05/21 with good results.? Patient's weakness is improving per report. 3. Hypertension Blood pressures remain normotensive.? He is not treated at baseline.? I am uncertain where the hypertension diagnosis came from. 4. Hyperlipidemia Continue atorvastatin. 5. Polysubstance dependence Currently in remission 6. Prior stroke with residual right-sided weakness Continue aspirin and atorvastatin 7. Microcytic anemia Thalassemia screen negative. 8. Hepatitis-C Positive hep C antibody and hep C RNA greater than 1,000,000.? Will need outpatient follow-up. 9. Acute right hand swelling, not present on admission -Obtain RUE ultrasound to rule DVT -Elevate extremity Resolved issues: Altered mental status/metabolic encephalopathy Oral thrush Acute respiratory failure due to pneumonia Pneumonia Dispo Awaiting placement. Time Spent With Patient Critical Care time: I spent a total of [] minutes of critical care time on this patient's care today; this time is exclusive of procedural time. Quality VTE Deep Vein Thrombosis/Pulmonary Embolism Present on Admission: No
[2022-06-16] MEDS: DULOXETINE 30 MG CAPSULE 60 MG PO (08:22)
[2022-06-16] MEDS: DOCUSATE 100 MG CAPSULE PO ×2 (08:23→20:48)
[2022-06-16] MEDS: SENNOSIDES 8.6 MG TABLET PO ×2 (08:23→20:50)
[2022-06-16] MEDS: IBUPROFEN 400 MG TABLET 600 MG PO ×3 (08:23→20:49)
[2022-06-16] MEDS: PANTOPRAZOLE DR 40 MG TABLET PO ×2 (08:23→20:49)
[2022-06-16] MEDS: ENOXAPARIN 40 MG/0.4 ML SYRINGE SUBCUT (08:24)
[2022-06-16] MEDS: FOLIC ACID 1 MG TABLET PO (08:24)
[2022-06-16] MEDS: ASPIRIN EC 81 MG TABLET PO (08:24)
[2022-06-16] MEDS: MULTIVITAMIN 1 TABLET 1 TAB PO (08:24)
[2022-06-16] MEDS: GABAPENTIN 400 MG CAPSULE PO ×3 (08:24→20:48)
--- NOTE | 2022-06-16 08:53 | DI.US.S_ITS ---
PROCEDURE: US PERIPH VENOUS UP EXTREM RT INDICATIONS: assess for RUE DVT, patient having lots of hand swelling TECHNIQUE: Real-time imaging, as well as color and pulse Doppler interrogation, was performed of the right upper extremity deep veins from the inferior neck to the antecubital fossa. COMPARISON: None. FINDINGS: The internal jugular vein, visualized portions of the subclavian vein, axillary, and brachial veins are free of intraluminal thrombus. Where physically possible, the veins are normally compressible. Color and pulse Doppler demonstrate normal intraluminal flow, with expected phasicity and pulsatility. Additional scanning of the cephalic and basilic veins of the superficial system demonstrate normal compressibility, without thrombus. In the area of the right innominate and subclavian vein there is possible narrowing of the vein. IMPRESSION: No DVT in the right upper extremity. Dictated by: Golden Camp M.D. on 06/16/2022 at 10:43 Approved by: Golden Camp M.D. on 06/16/2022 at 10:47
[2022-06-16 10:30] VITALS: BP 131/69; PULSE 78; RESP 16; TEMP 36.5; O2SAT 97
--- NOTE | 2022-06-16 11:35 | OT.IPNOTE ---
Attempted to see pt this AM. Pt with a visitor and requests that OT return later. Will attempt to see pt in PM.
--- NOTE | 2022-06-16 14:40 | PT.IPTN ---
Current Diagnoses Depression, unspecified (05/01/22) Cerebral infarction, unspecified (05/01/22) Disorder of teeth and supporting structures, unspecified (05/01/22) Spinal stenosis, cervical region (05/01/22) Physical Therapy Treatment Note M2 PT-IP Current Condition Start: 05/07/22 09:18 Freq: NEEDED Status: Active Protocol: Document 05/18/22 13:22 SP (Rec: 05/18/22 16:05 SP [id number]) Physical Therapy Current Condition Current Condition Evaluation Date 05/07/22 Treatment Diagnosis metabolic encephalopathy; polysubstance withdrawal; impaired mobility Onset Date 04/30/22 M3 PT-IP Subjective Start: 05/07/22 09:18 Freq: NEEDED Status: Active Protocol: Document 06/16/22 14:16 KS (Rec: 06/16/22 15:00 KS [id number]) Subjective Physical Therapy Visit Type Type Treatment Note Visit Start Time 14:16 Visit Stop Time 14:40 Total Visit Minutes 24 Notes Partial co-treat w/ OT due to pts needs. Number of BIOMEDICAL ENGINEERING PROFESSOR Visits 5 M4 PT-IP Mobility and Gait Start: 05/07/22 09:18 Freq: NEEDED Status: Active Protocol: Document 06/16/22 14:16 KS (Rec: 06/16/22 15:00 KS [id number]) PT-Bed Mobility Assessment Supine to Sit Supine to Sit Minimal Assistance,1 Person Assistance,Bedrails Scooting Scooting to Edge of Bed Contact Guard Assistance PT-Transfer Assessment Sit to and From Stand Sit to and from Stand Moderate Assistance,2 Person Assistance,Use of Upper Extremities Equipment Transfer Assistive Device Gait Belt,Platform Walker Transfers Transfer Destination Chair,Toilet Transfer Technique Pt ambulated w/ PFW Transfer Ability Level of Assist Moderate Assistance,2 Person Assistance,Use of Upper Extremities Comments Mobility Comments Pt in bed upon arrival and requesting to use toilet. WOOD FINISHER APPRENTICE arrived for brief change. Min A for sup<>sit and CGA for scooting EOB. Pt sit<>stand w/ PFW Max A and ambulated to toilet Mod A x2 w/ max verbal and tactile cues d/t pts scissoring gait and poorly controlled movements w/ FWW. After using toilet, OT arrived for assit. Mod A x2 for sit<> Stand and ~15 ft ambulation back to chair w/ continued scissoring gait and poor control of PFW and LE. After sitting, pt performed additional sit<>stand Mod A x2 and maintained standing balance w/ Mod A ~1 min w/ cues for knee extension, hip extensino, and upright posture . Pt c/o R shoulder pain throughout. Pt reported fatigue and left in chair w/ all needs in reach. Gait Assessment Gait Gait Assistance Required: Moderate Assistance,Maximum Assistance,2 Person Assist Distance (Feet) 15 Able to Maintain Weight Bearing Status Yes During Gait Assistive Devices Assistive Device Gait Belt,Platform Walker Orthotic/Prosthetic Devices or Brace: No Gait Deviations General Gait Pattern Ataxic,Decreased Stride Length ,Decreased Feet Clearance, Flexed Trunk,Lateral Trunk Lean,Narrow Based Gait Factors Limiting Gait Function Factors Limiting Gait Function Abnormal Tonal Influences, Decreased Activity Tolerance, Decreased Sensation,Decreased Strength,Difficulty Following Directions,Incoordination, Limited Range of Motion,Pain, Poor Balance,Poor Safety Awareness Comments Gait Comments Please refer to mobility section for details. PT-Balance Assessment Sitting Balance and Reactions Static Sitting Balance Ability Fair Dynamic Sitting Balance Ability Poor Standing Balance and Reactions Static Standing Balance Ability Poor Dynamic Standing Balance Ability Poor Device Used PFW M5 PT-IP Objective Assessments Start: 05/07/22 09:18 Freq: NEEDED Status: Active Protocol: Document 05/07/22 11:05 AW (Rec: 05/07/22 13:30 AW [id number]) Orientation Orientation/Cognition Level of Alertness Lethargic Orientation Name,Month,Place Safety Awareness Decreased Safety Awareness Gross Range of Motion Lower Extremity ROM Assessment Within Functional Limits Strength Lower Extremity Strength Assessment Bilaterally Impaired Comments Strength Comments R grossly 3-/5. L grossly 3+/5 Coordination Assessment Gross Coordination Gross Coordination Impaired Assessment Finger to Nose Test Activity Impossible Foot Tapping Test Minimal Impairment Coordination Comments Pt limited by BUE weakness with UE coordination testing. Sensation Assessment Sensation Gross Sensation WNL Muscle Tone Muscle Tone WNL Yes M6 PT-IP Treatment Start: 05/07/22 09:18 Freq: NEEDED Status: Active Protocol: Document 06/16/22 14:16 KS (Rec: 06/16/22 15:00 KS [id number]) Physical Therapy Treatment Education Education Provided Safety M7 PT-IP Assessment and Plan Start: 05/07/22 09:18 Freq: NEEDED Status: Active Protocol: Document 06/16/22 14:16 KS (Rec: 07/23/22 15:00 KS [id number]) PT Summary Assessment and Plan Potential Rehabilitation Potential Fair Summary Impairments Pain,ROM,Strength,Balance, Coordination,Sensation,Tone, Cognition,Bed Mobility, Transfers,Gait,Activity Tolerance Assessment Summary Pt limited by weakness, pain, tone, and incoordination. Min A for bed mobility, Mod to Max A for sit<>stand and Mod-Max Ax2 for ambulation. Pt had increased difficulty controlling LE during gait and required assist managing PFW as well. At this time, pt will require SNF to improve strength, activity tolerance, and functional mobility independence and decrease need for assist. Goals Bed Mobility Goal Contact Guard Assistance Transfer Goal Moderate Assistance Gait Goal Moderate Assistance Gait Distance 100 Other Goals transfers and ambulation using PFW/hemiwalker Days to Meet Goals 10 Frequency of Treatment Frequency Of Treatment Once a Day Treatment Plan Physical Therapy Treatment Plan Bed Mobility Training,Transfer Training,Gait Training, Therapeutic Exercise,Balance Retraining,Discharge Planning, Hot or Cold Pack,Neuromuscular Re-ed,Coordination Retraining Other Recommendations and Next Treatment sitting balance/tolerance; Focus trunk exercises; standing balance/tolerance Precautions Other Precautions seizure precautions; falls risk Recommendations To Nursing Amount of Assist Needed 2 Person Assist Discharge Recommendations PT Discharge Recommendations SNF Rehab,LTAC Transportation Needs at Discharge Wheelchair/Cabulance
--- NOTE | 2022-06-16 14:40 | OT.IP.TRT ---
Current Diagnoses Depression, unspecified (05/01/22) Cerebral infarction, unspecified (05/01/22) Disorder of teeth and supporting structures, unspecified (05/01/22) Spinal stenosis, cervical region (05/01/22) Occupational Therapy Treatment Note M2 OT-IP Current Condition Start: 05/07/22 12:13 Freq: Status: Active Protocol: Document 05/07/22 12:13 CGR (Rec: 05/07/22 12:37 CGR [id number]) Occupational Therapy Current Condition Current Condition Evaluation Date 05/07/22 Treatment Diagnosis generalized weakness, hx IV drug use, R CVA 2015 Diagnosis Onset Date 05/01/22 M3 OT- IP Subjective and Pain Start: 05/07/22 12:13 Freq: Status: Active Protocol: Document 06/16/22 16:37 CGR (Rec: 06/16/22 16:42 CGR [id number]) OT- Subjective Occupational Therapy Visit Type Type Progress Note Visit Start Time 14:21 Visit Stop Time 14:40 Total Visit Minutes 19 Notes co-treat with P.T. M4 OT- IP ADL's Start: 05/07/22 12:13 Freq: Status: Active Protocol: Document 06/16/22 16:37 CGR (Rec: 06/16/22 16:42 CGR [id number]) OT [id number] Comments OT Self-Feeding Comments not meal time OT ADL-Grooming Comments OT Grooming Comments pt declined OT ADL-Oral Care Comments Oral Care Comments pt declined OT ADL-Dressing General Eval Lower Body Dressing Ability Maximum Assistance Areas Needing Assistance Underpants/Brief Comments OT Dressing Comments pt needed max a for donning brief. He needed assist with threading both feet and for pulling it into place once standing OT ADL-Toileting General Evaluation Toileting Ability Total Assistance Comments OT Toileting Comments Pt needed total assist for back pericare OT ADL-Bathing Comments OT Bathing Comments not performed M5 OT- IP IADL's Start: 05/07/22 12:13 Freq: Status: Active Protocol: Document 05/07/22 12:13 CGR (Rec: 05/07/22 12:37 CGR [id number]) OT-Instrumental Activities of Daily Living Deficits IADL Deficits Identified Deficits Home Safety Awareness Awareness of Need for Assistance at Home Decreased Awareness Ability to Problem Solve Emergency Unable to Problem Solve Situations Medication Management Medication Management Comments Concerns about pt's ability to perform consistently Money Management Money Management Comments Concerns about pt's ability to perform consistently Meal Preparation Meal Preparation Comments Concerns about pt's ability to perform consistently Credit Reference Clerk Credit Reference Clerk Comments Concerns about pt's ability to perform consistently M6 OT- IP Functional Cognition Start: 05/07/22 12:13 Freq: Status: Active Protocol: Document 06/15/22 14:00 [facility] (Rec: 06/15/22 14:17 [facility] [id number]) Cognitive Factors Limiting Selfcare Function Cognitive Comments Cognitive Assessment Comments Pt more tried today but wanting to shower and still able to express his needs and at times needing to be asked if he needing assist. M7 OT- IP Mobility and Balance Start: 05/07/22 12:13 Freq: Status: Active Protocol: Document 06/16/22 16:37 CGR (Rec: 06/16/22 16:42 CGR [id number]) OT-Transfer Assessment Sit to and From Stand Sit to and from Stand Moderate Assistance,Maximum Assistance,2 Person Assistance Transfers Transfer Ability Moderate Assistance,Maximum Assistance,2 Person Assistance Technique Transfer Destination Chair,Toilet Transfer Technique Stand Step Pivot Devices Transfer Assistive Devices Gait Belt,Front Wheeled Walker Comments Mobility Comments Pt stood from toielt with mod x 2 and ambulated back to chair with poor balance and crossing of his feet. Pt demonstrates poor endurance for actvitiy on this date with rounded shoulders and difficulty holding up head with activity. OT- Balance Assessment Sitting Balance and Reactions Static Sitting Balance Ability Fair Dynamic Sitting Balance Ability Poor M8 OT- IP Objective Assessments Start: 05/07/22 12:13 Freq: Status: Active Protocol: Document 06/12/22 16:54 [facility] (Rec: 06/12/22 16:59 [facility] [id number]) OT Gross Range of Motion Upper Extremity Range of Motion ROM Impairments Rue hand initially only able to flex at MCP 10 degrees and after stretching, carpal mobs able to close his fist 25%. M9 OT- IP Assessment and Plan Start: 05/07/22 12:13 Freq: Status: Active Protocol: Document 06/16/22 16:37 CGR (Rec: 06/16/22 16:42 CGR [id number]) OT Summary Assessment and Plan Potential Rehabilitation Potential Good Analytic Complexity at Evaluation High Summary OT Impairments Pain,Strength,Balance, Coordination,Functional Cognition,Functional Mobility, Self-Feeding,Grooming,Dressing ,Toileting,Bathing,Toilet Transfers,Shower Transfers, Activity Tolerance Progress Towards Goals Slow Progress due to Pain,Slow Progress due to Medical Issues,Slow Progress due to Activity Tolerance Assessment Summary Pt participated in all activity asked of him but displayed a fatigued appearance with rounded shoulders and inability to keep his head up. Pt ambulated from toilet to chair and then performed sit to stand x2. Pt will continue to benefit from therapy services. Goals Self-Feeding Goal Standby Assistance Grooming Goal Minimal Assistance Dressing Goal Moderate Assistance Toileting Goal Moderate Assistance Bathing Goal Moderate Assistance Toilet Transfer Goal Minimal Assistance Shower Transfer Goal Minimal Assistance Days to Meet Goals 44 Frequency of Treatment Frequency Of Treatment Twice a Day Treatment Plan OT Treatment Plan ADL Training,Functional Cognition Training,Functional Mobility,Neuromuscular Re- education,Therapeutic Exercises,Patient/Family Education,Discharge Planning Other Treatment Recommendations and Next LB dressing Treatment Focus Discharge Recommendations OT Discharge Recommendations SNF Rehab,LTAC Transportation Needs at Discharge Wheelchair/Cabulance
[2022-06-16] MEDS: ATORVASTATIN 20 MG TABLET 40 MG PO (20:48)
[2022-06-16] MEDS: LORazepam 0.5 MG TABLET PO (20:49)
[2022-06-16 20:53] VITALS: BP 139/68; PULSE 70; RESP 12; TEMP 36.2; O2SAT 96
[2022-06-17] MEDS: HYDROCODONE/ACET 10/325 TABLET 1 TAB PO ×5 (00:57→21:33)
[2022-06-17] MEDS: ORAJEL 1 EACH TOP ×3 (00:57→17:09)
--- NOTE | 2022-06-17 03:30 | PC.NURSE ---
Patient is alert and oriented but very soft spoken. Breath sounds CTA with RA sat of 96%. HRR. Denied nausea. BT present and abdomen is soft. Has been both continent and incontinent of urine; uses urinal with assistance. Assisted to reposition q2h. Gait not assessed at time of assessment. Weakness in all extremities right > left. Continued edema in right hand/UE. When asked states he has neck pain with severity of 8/10 but is able to sleep between scheduled doses of Vicodin/Ibuprofen. When asked what level pain gets down to, he states it takes the edge off. Refuses SCD's so reminded to ankle wave. Fall risk score is high and bed alarm is activated.
--- NOTE | 2022-06-17 07:55 | P.PN_ITS ---
Subjective Subjective Date Patient Seen: 06/17/22 Time Patient Seen: 09:00 Interval history: No complaints today. Exam Vital Signs (past 8 hours): - 06/17/22 01:00 Oxygen Delivery Method Room Air Oxygen Delivery Method Room Air Oxygen Flow Rate 0 Narrative Exam Narrative: GEN:? Middle-aged male, Alert and oriented x 3, appears uncomfortable, sitting up in a chair HEENT:NC, Face symmetric, he is essentially edentulous though it appears multiple teeth have been broken off the gum line, the painful area is in his right lower lower jaw and anterior lower jaw.? No obvious erythema/exuda te/induration/fluctuance. CHEST: Respiratory excursions symmetric, CTAB CV: RRR, no M/R/G ABD: Soft, NT/ND, BT present in all 4 quadrants, no organomegaly or masses EXTR: warm, well perfused, right upper extremity remains weak with swelling of the hand present, poor mobility lower SKIN: warm and dry, no rash NEURO: Alert and oriented x 3, persistent right upper extremity weakness Objective Labs Result Diagrams: 06/15/22 10:51 06/15/22 10:51 [facility] Medical History (Updated 06/13/22 @ 17:45 by Venu Vega DMD) Asthma Chronic back pain greater than 3 months duration Closed intertrochanteric fracture of left femur Depression Drug abuse, IV History of CVA (cerebrovascular accident) Poor dentition Surgical History History of hernia repair Family History Father Unknown family medical history Mother No problems noted. Grandmother Myocardial infarction Grandfather No problems noted. Social History household members: friend(s) Smoking Status: Current some day smoker alcohol intake: current Assessment & Plan Assessment & Plan narrative: 1. Dental pain Patient has multiple fractured teeth with just the root remaining in place.? Facial CT was done June 05 which revealed tiny residual roots of the lateral mandibular incisors and canines with adjacent periapical lucency.? No lytic or destructive lesion in the mandible.? No maxillary teeth present.? No acute soft tissue findings.? The periapical lucency could be consistent with dental abscess.? Started clindamycin on the evening of June 09.? No diarrhea.? Tolerating well thus far.? Continue hydrocodone and benzocaine for pain. -Dr. Vega oral surgeon assessed on 06/13 and did not think infection present, recommended tooth extraction as outpatient -Neva PRN 2. Generalized weakness Patient is chronically debilitated.? This admission he underwent 2 brain MRIs which for stroke, C-spine MRI with chronic pathology but no acute cord compression.? Remainder of workup was otherwise unremarkable.? He was initiated on Cymbalta 05/18 and gabapentin 05/21 with good results.? Patient's weakness is improving per report. 3. Hypertension Blood pressures remain normotensive.? He is not treated at baseline.? I am uncertain where the hypertension diagnosis came from. 4. Hyperlipidemia Continue atorvastatin. 5. Polysubstance dependence Currently in remission 6. Prior stroke with residual right-sided weakness Continue aspirin and atorvastatin 7. Microcytic anemia Thalassemia screen negative. 8. Hepatitis-C Positive hep C antibody and hep C RNA greater than 1,000,000.? Will need outpatient follow-up. 9. Acute right hand swelling, not present on admission -Obtain RUE ultrasound to rule DVT -Elevate extremity Resolved issues: Altered mental status/metabolic encephalopathy Oral thrush Acute respiratory failure due to pneumonia Pneumonia Dispo Awaiting placement. Time Spent With Patient Critical Care time: I spent a total of [] minutes of critical care time on this patient's care today; this time is exclusive of procedural time. Quality VTE Deep Vein Thrombosis/Pulmonary Embolism Present on Admission: No
--- NOTE | 2022-06-17 09:08 | PT-IP ANOTE ---
Pt willing to work with PT but requests brief change first. Agreement to notify nursing and return after brief change to perform PT.
--- NOTE | 2022-06-17 09:40 | PT-IP ANOTE ---
Pt sleeping and difficult to arouse upon return to attempt PT. Notified by PROSPECT MANAGER pt was awake during night and is very sleepy this morning.
[2022-06-17] MEDS: ASPIRIN EC 81 MG TABLET PO (10:18)
[2022-06-17] MEDS: DULOXETINE 30 MG CAPSULE 60 MG PO (10:18)
[2022-06-17] MEDS: DOCUSATE 100 MG CAPSULE PO ×2 (10:18→21:34)
[2022-06-17] MEDS: ENOXAPARIN 40 MG/0.4 ML SYRINGE SUBCUT (10:18)
[2022-06-17] MEDS: FOLIC ACID 1 MG TABLET PO (10:18)
[2022-06-17] MEDS: GABAPENTIN 400 MG CAPSULE PO ×3 (10:19→21:34)
[2022-06-17] MEDS: IBUPROFEN 400 MG TABLET 600 MG PO ×3 (10:19→21:32)
[2022-06-17] MEDS: MULTIVITAMIN 1 TABLET 1 TAB PO (10:21)
[2022-06-17] MEDS: PANTOPRAZOLE DR 40 MG TABLET PO ×2 (10:22→21:34)
[2022-06-17] MEDS: LORazepam 1 MG TABLET 0.5 MG PO (10:23)
[2022-06-17] MEDS: LORazepam 0.5 MG TABLET PO ×2 (10:24→21:32)
[2022-06-17] MEDS: SENNOSIDES 8.6 MG TABLET PO ×2 (10:31→21:32)
[2022-06-17 11:00] VITALS: BP 148/80; PULSE 73; RESP 18; TEMP 36.5; O2SAT 96
--- NOTE | 2022-06-17 11:05 | CM.DPC ---
Addendum entered by Roya More R.N. 06/17/22 12:01: [facility] inquire about pt referral per Vivian. Roya More RN/GISSELLE Original Note: DCP Cont: DCP left for [facility] in [place] to follow up on referral. #[phone]. DCP contacted Gian Roman for follow up on referral. DCP to continue to work on this case. Roya More RN/AUTUMNP
--- NOTE | 2022-06-17 11:55 | PT.IPTN ---
Current Diagnoses Depression, unspecified (05/01/22) Cerebral infarction, unspecified (05/01/22) Disorder of teeth and supporting structures, unspecified (05/01/22) Spinal stenosis, cervical region (05/01/22) Physical Therapy Treatment Note M2 PT-IP Current Condition Start: 05/07/22 09:18 Freq: NEEDED Status: Active Protocol: Document 05/18/22 13:22 SP (Rec: 05/18/22 16:05 SP [id number]) Physical Therapy Current Condition Current Condition Evaluation Date 05/07/22 Treatment Diagnosis metabolic encephalopathy; polysubstance withdrawal; impaired mobility Onset Date 04/30/22 M3 PT-IP Subjective Start: 05/07/22 09:18 Freq: NEEDED Status: Active Protocol: Document 06/17/22 11:55 NBM (Rec: 06/17/22 19:29 NBM [id number]) Subjective Physical Therapy Visit Type Type Treatment Note Visit Start Time 11:30 Visit Stop Time 11:55 Total Visit Minutes 25 Number of PEDODONTIST Visits 6 M4 PT-IP Mobility and Gait Start: 05/07/22 09:18 Freq: NEEDED Status: Active Protocol: Document 06/17/22 11:55 NBM (Rec: 06/17/22 19:29 NBM [id number]) PT-Bed Mobility Assessment Supine to Sit Supine to Sit Minimal Assistance,1 Person Assistance,Bedrails Scooting Scooting to Edge of Bed Contact Guard Assistance PT-Transfer Assessment Sit to and From Stand Sit to and from Stand Moderate Assistance,Maximum Assistance,2 Person Assistance Equipment Transfer Assistive Device Gait Belt,Front Wheeled Walker Orthotic/Prosthetic Devices or Brace: No Transfers Transfer Destination Chair,Toilet Transfer Technique Pt ambulated w/ PFW Transfer Ability Level of Assist Moderate Assistance,2 Person Assistance,Use of Upper Extremities Comments Mobility Comments Pt in bed upon arrival and wanting to use bedside commode . Pt performed duane ankle pumps and heel slides. Min A for sup<>sit and CGA for scooting EOB. Pt sit<>stand w/ PFW Max A and ambulated ~3ft to commode Mod A x2 w/ max verbal and tactile cues d/t leg crossover and poor coordination w/PFW. After using toilet, RN arrived for assist. Mod A x2 for sit<> Stand w/ cues for glute facilitation. Standing balance x 1' while DUCT MAKER performed hygiene and brief change. Pt ambulated ~5 ft to chair w/ continued scissoring gait and poor control of PFW. Stand<> Sit modA x 2 w/ cues for backing to chair fully and positioning. After sitting pt performed duane LAQ and seated marching. Pt left reclined in chair w/pillow support under RLE, chair alarm, call light, and all needs w/in reach. Gait Assessment Gait Gait Assistance Required: Moderate Assistance,Maximum Assistance,2 Person Assist Distance (Feet) 15 Able to Maintain Weight Bearing Status Yes During Gait Assistive Devices Assistive Device Gait Belt,Platform Walker Orthotic/Prosthetic Devices or Brace: No Gait Deviations General Gait Pattern Ataxic,Decreased Stride Length ,Decreased Feet Clearance, Flexed Trunk,Lateral Trunk Lean,Narrow Based Gait Factors Limiting Gait Function Factors Limiting Gait Function Abnormal Tonal Influences, Decreased Activity Tolerance, Decreased Sensation,Decreased Strength,Difficulty Following Directions,Incoordination, Limited Range of Motion,Pain, Poor Balance,Poor Safety Awareness Comments Gait Comments Please refer to mobility section for details. PT-Balance Assessment Sitting Balance and Reactions Static Sitting Balance Ability Fair Dynamic Sitting Balance Ability Poor Standing Balance and Reactions Static Standing Balance Ability Poor Dynamic Standing Balance Ability Poor Device Used PFW M5 PT-IP Objective Assessments Start: 05/07/22 09:18 Freq: NEEDED Status: Active Protocol: Document 05/07/22 11:05 AW (Rec: 05/07/22 13:30 AW [id number]) Orientation Orientation/Cognition Level of Alertness Lethargic Orientation Name,Month,Place Safety Awareness Decreased Safety Awareness Gross Range of Motion Lower Extremity ROM Assessment Within Functional Limits Strength Lower Extremity Strength Assessment Bilaterally Impaired Comments Strength Comments R grossly 3-/5. L grossly 3+/5 Coordination Assessment Gross Coordination Gross Coordination Impaired Assessment Finger to Nose Test Activity Impossible Foot Tapping Test Minimal Impairment Coordination Comments Pt limited by BUE weakness with UE coordination testing. Sensation Assessment Sensation Gross Sensation WNL Muscle Tone Muscle Tone WNL Yes M6 PT-IP Treatment Start: 05/07/22 09:18 Freq: NEEDED Status: Active Protocol: Document 06/17/22 11:55 NBM (Rec: 06/17/22 19:29 NBM [id number]) Physical Therapy Treatment Exercises Exercises Ankle Pumps,Heel Slides Education Education Provided Safety Other Treatments Other Treatment Performed LAQs, seated marching M7 PT-IP Assessment and Plan Start: 05/07/22 09:18 Freq: NEEDED Status: Active Protocol: Document 06/17/22 11:55 NB (Rec: 06/17/22 19:29 NBM [id number]) PT Summary Assessment and Plan Potential Rehabilitation Potential Fair Summary Impairments Pain,ROM,Strength,Balance, Coordination,Sensation,Tone, Cognition,Bed Mobility, Transfers,Gait,Activity Tolerance Assessment Summary Pt continues to be limited by weakness, pain, tone, and incoordination. Lory for bed mobility, ModA to MaxA for sit <>stand and ModA to MaxA x 2PA for ambulation w/ PFW and cues for crossing feet. At this time, pt will require SNF to improve strength, activity tolerance, and functional mobility independence and decrease need for assist. Goals Bed Mobility Goal Contact Guard Assistance Transfer Goal Moderate Assistance Gait Goal Moderate Assistance Gait Distance 100 Other Goals transfers and ambulation using PFW/hemiwalker Days to Meet Goals 10 Frequency of Treatment Frequency Of Treatment Once a Day Treatment Plan Physical Therapy Treatment Plan Bed Mobility Training,Transfer Training,Gait Training, Therapeutic Exercise,Balance Retraining,Discharge Planning, Hot or Cold Pack,Neuromuscular Re-ed,Coordination Retraining Other Recommendations and Next Treatment sitting balance/tolerance; Focus trunk exercises; standing balance/tolerance Precautions Other Precautions seizure precautions; falls risk Recommendations To Nursing Amount of Assist Needed 2 Person Assist Discharge Recommendations PT Discharge Recommendations SNF Rehab,LTAC Transportation Needs at Discharge Wheelchair/Cabulance
[2022-06-17] MEDS: fentaNYL 12 MCG/PATCH TOP (16:27)
--- NOTE | 2022-06-17 16:54 | PC.NURSE ---
12.5mcg Fentanyl Patch applied to left upper anterior chest at 1630 as ordered. Patch placement delayed as pt was asleep. Previously placed patch not found on the patients body by this nurse or the J2EE APPLICATION DEVELOPER. Pt reports that it must have washed off in the shower yesterday.
--- NOTE | 2022-06-17 17:12 | PC.NURSE ---
Pt has had an episode of prolonged coughing after attempting to swallow some of his dinner. Pt is positioned in high fowlers position for eating. He recovered breathing normally after 4 minutes and he has been reminded to take bites slowly.
[2022-06-17] MEDS: ATORVASTATIN 20 MG TABLET 40 MG PO (21:33)
[2022-06-18] MEDS: HYDROCODONE/ACET 10/325 TABLET 1 TAB PO ×6 (02:07→21:32)
[2022-06-18 05:06] VITALS: BP 132/73; PULSE 87; RESP 18; TEMP 36.1; O2SAT 100
[2022-06-18 07:54] VITALS: BP 133/75; PULSE 71; RESP 16; TEMP 36.2; O2SAT 95
[2022-06-18] MEDS: SENNOSIDES 8.6 MG TABLET PO ×2 (09:07→21:32)
[2022-06-18] MEDS: MULTIVITAMIN 1 TABLET 1 TAB PO (09:07)
[2022-06-18] MEDS: ASPIRIN EC 81 MG TABLET PO (09:07)
[2022-06-18] MEDS: DOCUSATE 100 MG CAPSULE PO ×2 (09:07→21:33)
[2022-06-18] MEDS: GABAPENTIN 400 MG CAPSULE PO ×3 (09:07→21:33)
[2022-06-18] MEDS: PANTOPRAZOLE DR 40 MG TABLET PO ×2 (09:08→21:32)
[2022-06-18] MEDS: FOLIC ACID 1 MG TABLET PO (09:08)
[2022-06-18] MEDS: DULOXETINE 30 MG CAPSULE 60 MG PO (09:08)
[2022-06-18] MEDS: ENOXAPARIN 40 MG/0.4 ML SYRINGE SUBCUT (09:08)
[2022-06-18] MEDS: IBUPROFEN 400 MG TABLET 600 MG PO ×3 (09:09→21:32)
[2022-06-18] MEDS: ORAJEL 1 EACH TOP ×3 (09:10→21:30)
--- NOTE | 2022-06-18 09:13 | OT.IPNOTE ---
Addendum entered and electronically signed by ASHISH Vallejo OT 06/18/22 10:45: Attempted to see again for OT ~1030. Pt still lethargic and kindly asks to not do anything at this time. Will hold and continue to follow. Original Note: Attempted to see pt for OT services this AM at ~915. Pt appears lethargic, not responding to questions or needing questions repeated multiple times. Pt requested that OT return later. Will check back as able.
--- NOTE | 2022-06-18 10:28 | DIET.CONS2 ---
Addendum entered by Michaela Alicea 06/18/22 16:56: RD consulted for pt with low Wilmer Score. Pts nutrition optimized at this time for malnourished state, receiving high PRO ONS once daily along with protein containing meals. Original Note: Dietary Inpatient Consultation Note Admission Date: 05/01/2022 04:[address] for LOS d48. Pt with resolving malnutrition as pt not actively using illicit substances with three meals/d provided by hospital. ONS intervention backed down from 3 high pro smoothies daily to one. Pt tolerating Dysphagia Advanced diet with large handled silverware, able to self feed. RD to check in q10d until d/c. Diet: 05/25/22 Lunch Dysphagia Diet Diet Modifications: sonja pro smoothie once, lite big silver, 1/2 port Liquid consistency: Normal/Thin Food texture: Dysphagia Advanced Nutrition Percent Meal Consumed 100% 06/18/22 08:35 Percent Meal Consumed 10% 06/17/22 18:05 Percent Meal Consumed 50% 06/17/22 13:08 Percent Meal Consumed 100% 06/17/22 08:45 Percent Meal Consumed 100% 06/16/22 18:06 Percent Meal Consumed 100% 06/16/22 14:30 Electronically Signed by: Michaela Alicea 06/18/22 10:28 Clinical Dietitian [address] [address]
--- NOTE | 2022-06-18 11:48 | PT.IPTN ---
Addendum entered and electronically signed by Danica Jimenez PTA 06/18/22 12:31: Vitals taken during tx: seated in chair: BP 153/81 HR 68 SaO2 97% on RA seated in chair post mobility: BP 164/80 HR 72 SaO2 98% on RA. Original Note: Current Diagnoses Depression, unspecified (05/01/22) Cerebral infarction, unspecified (05/01/22) Disorder of teeth and supporting structures, unspecified (05/01/22) Spinal stenosis, cervical region (05/01/22) Physical Therapy Treatment Note M2 PT-IP Current Condition Start: 05/07/22 09:18 Freq: NEEDED Status: Active Protocol: Document 06/18/22 11:28 SP (Rec: 06/18/22 12:30 SP [id number]) Physical Therapy Current Condition Current Condition Evaluation Date 05/07/22 Treatment Diagnosis metabolic encephalopathy; polysubstance withdrawal; impaired mobility Onset Date 04/30/22 M3 PT-IP Subjective Start: 05/07/22 09:18 Freq: NEEDED Status: Active Protocol: Document 06/18/22 11:28 SP (Rec: 06/18/22 12:30 SP [id number]) Subjective Physical Therapy Visit Type Type Treatment Note Visit Start Time 11:28 Visit Stop Time 11:48 Total Visit Minutes 20 Notes JANET Vail performed vital assessment and provided 2nd person assist to pt while being directly supervised by ANKIT Mishra throughout tx. Number of SPD MANAGER Visits 7 Physical Therapy Visit Comments Patient Comments Pt agreeable to mobilizing with therapy. M4 PT-IP Mobility and Gait Start: 05/07/22 09:18 Freq: NEEDED Status: Active Protocol: Document 06/18/22 11:28 SP (Rec: 06/18/22 12:30 SP [id number]) PT-Transfer Assessment Sit to and From Stand Sit to and from Stand Maximum Assistance,2 Person Assistance,Use of Upper Extremities Equipment Transfer Assistive Device Gait Belt,Front Wheeled Walker Orthotic/Prosthetic Devices or Brace: No Transfers Transfer Destination Chair Transfer Technique Pt ambulated w/ PFW Transfer Ability Level of Assist Maximum Assistance,2 Person Assistance,Use of Upper Extremities Comments Mobility Comments Pt was up in chair when arrived, agreeable to working with SPD MANAGER/ SPTA. Pt unable to lift LUE more than off pillow when asked, stated R shld pain 8/10, premedicated pre PT arrival. Scoot to EOC Min- Mod A with support for trunk, Sit>stand Max A x2 with support for trunk progress to standing, hand over hand RUE placement onto PFRW and cued push from chair arm on L. Once in standing, cued upright posture, knee extension R>LLE, forward gait w/ PFRW 5 ft with Max A x2 for trunk righting each step and cues for keeping BLE // to decrease scissor stepping R and LLE. Pt unable tolerate more than 5 ft, pulled chair behind him, Max A x2 for stand>sit with cues for LUE reach back and slow descent to chair, RUE supported by SPD MANAGER. Pt was propped with pillows at L lateral trunk and under RUE while reclined per pt request. Call light, chair alarmed and all needs in reach before left. Gait Assessment Gait Gait Assistance Required: Maximum Assistance,2 Person Assist Distance (Feet) 5 Able to Maintain Weight Bearing Status Yes During Gait Assistive Devices Assistive Device Gait Belt,Platform Walker Orthotic/Prosthetic Devices or Brace: No Gait Deviations General Gait Pattern Ataxic,Decreased Stride Length ,Decreased Feet Clearance, Flexed Trunk,Lateral Trunk Lean,Narrow Based Gait,Step-to Gait Factors Limiting Gait Function Factors Limiting Gait Function Abnormal Tonal Influences, Decreased Activity Tolerance, Decreased Sensation,Decreased Strength,Difficulty Following Directions,Incoordination, Limited Range of Motion,Pain, Poor Balance,Poor Safety Awareness Comments Gait Comments Please refer to mobility section for details. PT-Balance Assessment Sitting Balance and Reactions Static Sitting Balance Ability Fair Dynamic Sitting Balance Ability Poor Standing Balance and Reactions Static Standing Balance Ability Poor Dynamic Standing Balance Ability Poor Device Used PFW M5 PT-IP Objective Assessments Start: 05/07/22 09:18 Freq: NEEDED Status: Active Protocol: Document 05/07/22 11:05 AW (Rec: 05/07/22 13:30 AW [id number]) Orientation Orientation/Cognition Level of Alertness Lethargic Orientation Name,Month,Place Safety Awareness Decreased Safety Awareness Gross Range of Motion Lower Extremity ROM Assessment Within Functional Limits Strength Lower Extremity Strength Assessment Bilaterally Impaired Comments Strength Comments R grossly 3-/5. L grossly 3+/5 Coordination Assessment Gross Coordination Gross Coordination Impaired Assessment Finger to Nose Test Activity Impossible Foot Tapping Test Minimal Impairment Coordination Comments Pt limited by BUE weakness with UE coordination testing. Sensation Assessment Sensation Gross Sensation WNL Muscle Tone Muscle Tone WNL Yes M6 PT-IP Treatment Start: 05/07/22 09:18 Freq: NEEDED Status: Active Protocol: Document 06/18/22 11:28 SP (Rec: 06/18/22 12:30 SP [id number]) Physical Therapy Treatment Exercises Exercises Ankle Pumps,Seated Knee Flexion/Extension Education Education Provided Safety M7 PT-IP Assessment and Plan Start: 05/07/22 09:18 Freq: NEEDED Status: Active Protocol: Document 06/18/22 11:28 SP (Rec: 06/18/22 12:30 SP [id number]) PT Summary Assessment and Plan Potential Rehabilitation Potential Fair Status of Condition at Evaluation Evolving Summary Impairments Pain,ROM,Strength,Balance, Coordination,Sensation,Tone, Cognition,Bed Mobility, Transfers,Gait,Activity Tolerance Progress Towards Goals Slow Progress due to Medical Issues,Slow Progress due to Activity Tolerance Assessment Summary Pt continues to be limited in weakness and reports of pain R shld pain today with premedication. Increased assist Max A x2 for trunk support and max cues with time to process LE advancement with corrections of not scissor crossing, upright posture and support for PFWW stability throughout all mobility. Continue to recommend SNF for progress strength and functional mobility and potential LTC placement when available. Goals Bed Mobility Goal Contact Guard Assistance Transfer Goal Moderate Assistance Gait Goal Moderate Assistance Gait Distance 100 Other Goals transfers and ambulation using PFW/hemiwalker Days to Meet Goals 10 Frequency of Treatment Frequency Of Treatment Once a Day Treatment Plan Physical Therapy Treatment Plan Bed Mobility Training,Transfer Training,Gait Training, Therapeutic Exercise,Balance Retraining,Discharge Planning, Hot or Cold Pack,Neuromuscular Re-ed,Coordination Retraining Other Recommendations and Next Treatment LE ex pre mobility, sitting Focus balance tolerance, trunk exercises, standing balance/ tolerance. Precautions Other Precautions seizure precautions; falls risk Recommendations To Nursing Amount of Assist Needed 2 Person Assist Discharge Recommendations PT Discharge Recommendations SNF Rehab,LTAC Transportation Needs at Discharge Wheelchair/Cabulance
--- NOTE | 2022-06-18 13:57 | P.PN_ITS ---
Subjective Subjective Date Patient Seen: 06/18/22 Interval history: No complaints today. Exam Vital Signs (past 8 hours): - 06/18/22 07:54 Temperature 97.2 F L Pulse Rate 71 Respiratory Rate 16 Blood Pressure 133/75 Pulse Oximetry 95 Oxygen Flow Rate 0 Oxygen Delivery Method Room Air Oxygen Flow Rate 0 Narrative Exam Narrative: GEN: Middle-aged male, very thin, temporal wasting, Alert and oriented x 3, NAD ABD: Soft, NT/ND, BT present in all 4 quadrants, no organomegaly or masses EXTR: warm, well perfused, no C/C/E, right upper extremity remains weak, poor mobility SKIN: warm and dry, no rash NEURO: Alert and oriented x 3. Objective Labs Result Diagrams: 06/15/22 10:51 06/15/22 10:51 [facility] Medical History (Updated 06/13/22 @ 17:45 by Venu Vega DMD) Asthma Chronic back pain greater than 3 months duration Closed intertrochanteric fracture of left femur Depression Drug abuse, IV History of CVA (cerebrovascular accident) Poor dentition Surgical History History of hernia repair Family History Father Unknown family medical history Mother No problems noted. Grandmother Myocardial infarction Grandfather No problems noted. Social History household members: friend(s) Smoking Status: Current some day smoker alcohol intake: current Assessment & Plan Assessment & Plan narrative: 1. Dental pain Patient has multiple fractured teeth with just the root remaining in place.? Facial CT was done June 05 which revealed tiny residual roots of the lateral mandibular incisors and canines with adjacent periapical lucency.? No lytic or destructive lesion in the mandible.? No maxillary teeth present.? No acute soft tissue findings.? The periapical lucency could be consistent with dental abscess.? Started clindamycin on the evening of June 09.? No diarrhea.? Tolerating well thus far.? Continue hydrocodone and benzocaine for pain. -Dr. Vega oral surgeon assessed on 06/13 and did not think infection present, recommended tooth extraction as outpatient -Orajel PRN 2. Generalized weakness Patient is chronically debilitated.? This admission he underwent 2 brain MRIs which for stroke, C-spine MRI with chronic pathology but no acute cord compression.? Remainder of workup was otherwise unremarkable.? He was initiated on Cymbalta 05/18 and gabapentin 05/21 with good results.? Patient's weakness is improving per report. 3. Hyperlipidemia Continue atorvastatin. 4. Polysubstance dependence Currently in remission 5. Prior stroke with residual right-sided weakness Continue aspirin and atorvastatin 6. Microcytic anemia Thalassemia screen negative. 7. Hepatitis-C Positive hep C antibody and hep C RNA greater than 1,000,000.? Will need outpatient follow-up. Resolved issues: Altered mental status/metabolic encephalopathy Oral thrush Acute respiratory failure due to pneumonia Pneumonia Dispo Awaiting placement. Time Spent With Patient Critical Care time: I spent a total of [] minutes of critical care time on this patient's care today; this time is exclusive of procedural time. Quality VTE Deep Vein Thrombosis/Pulmonary Embolism Present on Admission: No
--- NOTE | 2022-06-18 14:42 | CM.DPC ---
DCP Cont: [facility] did an assessment for placement today. DCP set up virtual meeting for pt and Terry @ [facility]. [facility] did confirm they could meet his needs however, they are concerned about the pt's need for assistance through the night. Terry to talk with [facility] today to determine if there is any other way to evaluate for higher rate. Juan Moore called and can set up a virtual meeting for pt to determine if they could accept the pt on Wednesday 06/20 @ 1130. DCP to continue to follow. Roya More RN/DCP
[2022-06-18 19:41] VITALS: BP 126/78; PULSE 81; RESP 20; TEMP 36.1; O2SAT 95
[2022-06-18] MEDS: ATORVASTATIN 20 MG TABLET 40 MG PO (21:32)
[2022-06-18] MEDS: LORazepam 1 MG TABLET 0.5 MG PO (21:33)
[2022-06-19] MEDS: HYDROCODONE/ACET 10/325 TABLET 1 TAB PO ×6 (02:08→21:19)
[2022-06-19 08:00] VITALS: BP 129/60; PULSE 96; RESP 16; TEMP 36.2; O2SAT 96
[2022-06-19] MEDS: DULOXETINE 30 MG CAPSULE 60 MG PO (08:48)
[2022-06-19] MEDS: IBUPROFEN 400 MG TABLET 600 MG PO ×3 (08:49→21:18)
[2022-06-19] MEDS: GABAPENTIN 400 MG CAPSULE PO ×3 (08:49→21:19)
[2022-06-19] MEDS: FOLIC ACID 1 MG TABLET PO (08:50)
[2022-06-19] MEDS: ENOXAPARIN 40 MG/0.4 ML SYRINGE SUBCUT (08:50)
[2022-06-19] MEDS: DOCUSATE 100 MG CAPSULE PO ×2 (08:50→21:19)
[2022-06-19] MEDS: ASPIRIN EC 81 MG TABLET PO (08:50)
[2022-06-19] MEDS: LORazepam 0.5 MG TABLET PO (08:52)
[2022-06-19] MEDS: ORAJEL 1 EACH TOP ×4 (08:55→21:21)
[2022-06-19] MEDS: PANTOPRAZOLE DR 40 MG TABLET PO ×2 (08:58→21:19)
[2022-06-19] MEDS: SENNOSIDES 8.6 MG TABLET PO ×2 (08:58→21:19)
[2022-06-19] MEDS: MULTIVITAMIN 1 TABLET 1 TAB PO (08:58)
--- NOTE | 2022-06-19 10:35 | OT.IP.TRT ---
Current Diagnoses Depression, unspecified (05/01/22) Cerebral infarction, unspecified (05/01/22) Disorder of teeth and supporting structures, unspecified (05/01/22) Spinal stenosis, cervical region (05/01/22) Occupational Therapy Treatment Note M2 OT-IP Current Condition Start: 05/07/22 12:13 Freq: Status: Active Protocol: Document 05/07/22 12:13 CGR (Rec: 05/07/22 12:37 CGR [id number]) Occupational Therapy Current Condition Current Condition Evaluation Date 05/07/22 Treatment Diagnosis generalized weakness, hx IV drug use, R CVA 2015 Diagnosis Onset Date 05/01/22 M3 OT- IP Subjective and Pain Start: 05/07/22 12:13 Freq: Status: Active Protocol: Document 06/19/22 11:00 [facility] (Rec: 06/19/22 11:10 [facility] [id number]) OT- Subjective Occupational Therapy Visit Type Type Treatment Note Visit Start Time 10:04 Visit Stop Time 10:35 Total Visit Minutes 31 Occupational Therapy Visit Comments Patient Comments Pt wanting to use the toilet. MARKETING PROFESSIONAL and nursing aid present to assist. Patient/Caregiver Goals TO see his dog. OT Pain Assessment Pain When Pain Assessed At Rest Pain Present Pain Present Pain Reported M4 OT- IP ADL's Start: 05/07/22 12:13 Freq: Status: Active Protocol: Document 06/19/22 11:00 [facility] (Rec: 06/19/22 11:10 [facility] [id number]) OT [id number] Comments OT Self-Feeding Comments not meal time OT ADL-Grooming Comments OT Grooming Comments Not performed. OT ADL-Oral Care Comments Oral Care Comments Not performed. OT ADL-Dressing General Eval Lower Body Dressing Ability Maximum Assistance,Total Assistance Areas Needing Assistance Underpants/Brief,Socks Comments OT Dressing Comments Pt able to assist to lift up his feet while seated on the toilet and needing assist to get up over his feet and over his hips with another person to assist while standing and MAX AX 1. OT ADL-Toileting General Evaluation Toileting Ability Total Assistance Comments OT Toileting Comments Pt needed total assist for back pericare OT ADL-Bathing Bathing Type Bathing Type Sponge Bath General Evaluation Areas Needing Assistance Wash/Dry Upper Body,Wash/Dry Back,Wash/Dry Perineal Area, Wash/Dry Lower Extremities Comments OT Bathing Comments Pt too tired to assist today for sponge bath however, able to maintain good trunk control while seated on the toilet. M5 OT- IP IADL's Start: 05/07/22 12:13 Freq: Status: Active Protocol: Document 05/07/22 12:13 CGR (Rec: 05/07/22 12:37 CGR [id number]) OT-Instrumental Activities of Daily Living Deficits IADL Deficits Identified Deficits Home Safety Awareness Awareness of Need for Assistance at Home Decreased Awareness Ability to Problem Solve Emergency Unable to Problem Solve Situations Medication Management Medication Management Comments Concerns about pt's ability to perform consistently Money Management Money Management Comments Concerns about pt's ability to perform consistently Meal Preparation Meal Preparation Comments Concerns about pt's ability to perform consistently Spring Layer Spring Layer Comments Concerns about pt's ability to perform consistently M6 OT- IP Functional Cognition Start: 05/07/22 12:13 Freq: Status: Active Protocol: Document 06/19/22 11:00 [facility] (Rec: 06/19/22 11:10 [facility] [id number]) Cognitive Factors Limiting Selfcare Function Cognitive Comments Cognitive Assessment Comments Pt very tearful today and wanting to see his dog, nursing aware. M7 OT- IP Mobility and Balance Start: 05/07/22 12:13 Freq: Status: Active Protocol: Document 06/19/22 11:00 [facility] (Rec: 06/19/22 11:10 [facility] [id number]) OT- Bed Mobility Assessment Supine to Sit Supine to Sit Assist Minimal Assistance OT-Transfer Assessment Sit to and From Stand Sit to and from Stand Maximum Assistance,2 Person Assistance Transfers Transfer Ability Maximum Assistance,Total Assistance,2 Person Assistance Technique Transfer Destination Bed,Chair,Toilet Transfer Technique Stand Step Pivot Devices Transfer Assistive Devices Gait Belt,Front Wheeled Walker Comments Mobility Comments Pt stood from the toilet with MAX AX 2 to FWW and right platform walker and noted crossing his feet and needing assist to help move his feet and uncross them at times. OT- Balance Assessment Sitting Balance and Reactions Static Sitting Balance Ability Fair Dynamic Sitting Balance Ability Poor Standing Balance and Reactions Static Standing Balance Ability Poor Dynamic Standing Balance Ability Poor Comments Other Balance Tests/Deviations/Treatment Sitting balance on the toilet : a bit better and able to obtain midline while nursing aid able to assist pt with sponge bath. M9 OT- IP Assessment and Plan Start: 05/07/22 12:13 Freq: Status: Active Protocol: Document 06/19/22 11:00 [facility] (Rec: 06/19/22 11:10 [facility] [id number]) OT Summary Assessment and Plan Potential Rehabilitation Potential Fair+ Analytic Complexity at Evaluation High Summary OT Impairments Pain,Strength,Balance, Coordination,Functional Cognition,Functional Mobility, Self-Feeding,Grooming,Dressing ,Toileting,Bathing,Toilet Transfers,Shower Transfers, Activity Tolerance Progress Towards Goals Slow Progress due to Pain,Slow Progress due to Medical Issues,Slow Progress due to Activity Tolerance Assessment Summary Pt needing MAX/Total assist with FWW to get to the toilet and having difficulty with control of his LE and legs kept crossing over each other and needing at times to physically assist to keep his legs apart, assist to balance and to help move the FWW. Continue to recommend transfer only with nursing. Pt would benefit from skilled rehab to help maximize his level of ADL's and mobility, however per case management unable to find placement and therefore looking at [facility]. Goals Self-Feeding Goal Standby Assistance Grooming Goal Minimal Assistance Dressing Goal Moderate Assistance Toileting Goal Moderate Assistance Bathing Goal Moderate Assistance Toilet Transfer Goal Moderate Assistance Shower Transfer Goal Moderate Assistance Days to Meet Goals 44 Frequency of Treatment Frequency Of Treatment Twice a Day Treatment Plan OT Treatment Plan ADL Training,Functional Cognition Training,Functional Mobility,Neuromuscular Re- education,Therapeutic Exercises,Patient/Family Education,Discharge Planning Discharge Recommendations OT Discharge Recommendations SNF Rehab,LTAC Transportation Needs at Discharge Wheelchair/Cabulance
--- NOTE | 2022-06-19 10:35 | PT.IPTN ---
Current Diagnoses Depression, unspecified (05/01/22) Cerebral infarction, unspecified (05/01/22) Disorder of teeth and supporting structures, unspecified (05/01/22) Spinal stenosis, cervical region (05/01/22) Physical Therapy Treatment Note M2 PT-IP Current Condition Start: 05/07/22 09:18 Freq: NEEDED Status: Active Protocol: Document 06/18/22 11:28 SP (Rec: 06/18/22 12:30 SP [id number]) Physical Therapy Current Condition Current Condition Evaluation Date 05/07/22 Treatment Diagnosis metabolic encephalopathy; polysubstance withdrawal; impaired mobility Onset Date 04/30/22 M3 PT-IP Subjective Start: 05/07/22 09:18 Freq: NEEDED Status: Active Protocol: Document 06/19/22 10:09 KS (Rec: 06/19/22 10:47 KS [id number]) Subjective Physical Therapy Visit Type Type Treatment Note Visit Start Time 10:09 Visit Stop Time 10:35 Total Visit Minutes 19 Notes Partial co-treat w/ OT Split treatment 10:09-10:18, 10:25-10:35 Number of TUMBLER PLATER Visits 8 Physical Therapy Visit Comments Patient Comments Pt agreeable to mobilizing with therapy. M4 PT-IP Mobility and Gait Start: 05/07/22 09:18 Freq: NEEDED Status: Active Protocol: Document 06/19/22 10:09 KS (Rec: 06/19/22 10:47 KS [id number]) PT-Bed Mobility Assessment Supine to Sit Supine to Sit Minimal Assistance,1 Person Assistance,Bedrails Scooting Scooting to Edge of Bed Contact Guard Assistance PT-Transfer Assessment Sit to and From Stand Sit to and from Stand Maximum Assistance,2 Person Assistance,Use of Upper Extremities Equipment Transfer Assistive Device Gait Belt,Front Wheeled Walker Orthotic/Prosthetic Devices or Brace: No Transfers Transfer Destination Chair,Toilet Transfer Technique Pt ambulated w/ PFW Transfer Ability Level of Assist Maximum Assistance,2 Person Assistance,Use of Upper Extremities Comments Mobility Comments Pt in bed upon arrival and wanting to ambulate to toilet. Pt Min A for sup<>sit w/ bed rails and CGA and cues for scooting EOB. Pt using momentum and w/ poor trunk control when scooting. Pt sit< >stand Max A x2 w/ PFW and ambulated ~12 ft to toilet Max A x2 w/ verbal and tactile cues. Pt w/ increased RLE tone today having difficulty advancing LE and w/ scissoring gait. Pt required Max A for slow descent onto toilet. Came back after pt received sponge bath and assisted pt back to chair. He ambulated again w/ PFW from toilet to chair ~8 ft w/ Max A x2 and assistance moving LE back towards chair d /t increased tone, weakness, and fatigue pt has very poor control on LE today. Pt left in chair w/ all needs in reach . Gait Assessment Gait Gait Assistance Required: Maximum Assistance,2 Person Assist Distance (Feet) 12 Able to Maintain Weight Bearing Status Yes During Gait Assistive Devices Assistive Device Gait Belt,Platform Walker Orthotic/Prosthetic Devices or Brace: No Gait Deviations General Gait Pattern Ataxic,Decreased Stride Length ,Decreased Feet Clearance, Flexed Trunk,Lateral Trunk Lean,Narrow Based Gait,Step-to Gait Factors Limiting Gait Function Factors Limiting Gait Function Abnormal Tonal Influences, Decreased Activity Tolerance, Decreased Sensation,Decreased Strength,Difficulty Following Directions,Incoordination, Limited Range of Motion,Pain, Poor Balance,Poor Safety Awareness Comments Gait Comments Please refer to mobility section for details. PT-Balance Assessment Sitting Balance and Reactions Static Sitting Balance Ability Fair Dynamic Sitting Balance Ability Poor Standing Balance and Reactions Static Standing Balance Ability Poor Dynamic Standing Balance Ability Poor Device Used PFW M5 PT-IP Objective Assessments Start: 05/07/22 09:18 Freq: NEEDED Status: Active Protocol: Document 05/07/22 11:05 AW (Rec: 05/07/22 13:30 AW [id number]) Orientation Orientation/Cognition Level of Alertness Lethargic Orientation Name,Month,Place Safety Awareness Decreased Safety Awareness Gross Range of Motion Lower Extremity ROM Assessment Within Functional Limits Strength Lower Extremity Strength Assessment Bilaterally Impaired Comments Strength Comments R grossly 3-/5. L grossly 3+/5 Coordination Assessment Gross Coordination Gross Coordination Impaired Assessment Finger to Nose Test Activity Impossible Foot Tapping Test Minimal Impairment Coordination Comments Pt limited by BUE weakness with UE coordination testing. Sensation Assessment Sensation Gross Sensation WNL Muscle Tone Muscle Tone WNL Yes M6 PT-IP Treatment Start: 05/07/22 09:18 Freq: NEEDED Status: Active Protocol: Document 06/19/22 10:09 KS (Rec: 06/19/22 10:47 KS [id number]) Physical Therapy Treatment Education Education Provided Safety M7 PT-IP Assessment and Plan Start: 05/07/22 09:18 Freq: NEEDED Status: Active Protocol: Document 06/19/22 10:09 KS (Rec: 06/19/22 10:47 KS [id number]) PT Summary Assessment and Plan Potential Rehabilitation Potential Fair Status of Condition at Evaluation Evolving Summary Impairments Pain,ROM,Strength,Balance, Coordination,Sensation,Tone, Cognition,Bed Mobility, Transfers,Gait,Activity Tolerance Progress Towards Goals Slow Progress due to Medical Issues,Slow Progress due to Activity Tolerance Assessment Summary Pt w/ increased tone limiting mobility today. He requires only 1 PA for bed mobility and is able to bridge and scoot w / cues. For ambulation he still requires 2PA w/ FWW and assist level increases depending on pts level of tone and fatigue. This tx, he required verbal and tactile cues for advancing LE and had scissoring gait. Will continue to progress trunk control and transfers. Continue to recommend SNF for progress strength and functional mobility and potential LTC placement when available. Goals Bed Mobility Goal Contact Guard Assistance Transfer Goal Moderate Assistance Gait Goal Moderate Assistance Gait Distance 100 Other Goals transfers and ambulation using PFW/hemiwalker Days to Meet Goals 10 Frequency of Treatment Frequency Of Treatment Once a Day Treatment Plan Physical Therapy Treatment Plan Bed Mobility Training,Transfer Training,Gait Training, Therapeutic Exercise,Balance Retraining,Discharge Planning, Hot or Cold Pack,Neuromuscular Re-ed,Coordination Retraining Other Recommendations and Next Treatment LE ex pre mobility, sitting Focus balance tolerance, trunk exercises, standing balance/ tolerance. Precautions Other Precautions seizure precautions; falls risk Recommendations To Nursing Amount of Assist Needed 2 Person Assist Discharge Recommendations PT Discharge Recommendations SNF Rehab,LTAC Transportation Needs at Discharge Wheelchair/Cabulance
--- NOTE | 2022-06-19 13:30 | OT.IPNOTE ---
Check on pt and asleep.
--- NOTE | 2022-06-19 14:51 | OT.IPNOTE ---
Pt on the phone, therefore to check on the pt tomorrow. To consider decreasing pt's frequency to 1x/day versus 2x/day as pt having decreased activity tolerance.
[2022-06-19 19:00] VITALS: BP 139/78; PULSE 76; RESP 18; TEMP 36; O2SAT 95
--- NOTE | 2022-06-19 19:41 | P.PN_ITS ---
Subjective Subjective Date Patient Seen: 06/19/22 Interval history: No complaints today. Exam Vital Signs (past 8 hours): - 06/19/22 19:00 Temperature 96.8 F L Pulse Rate 76 Respiratory Rate 18 Blood Pressure 139/78 Pulse Oximetry 95 Oxygen Flow Rate 0 Oxygen Delivery Method Room Air Oxygen Flow Rate 0 Narrative Exam Narrative: GEN: Middle-aged male, very thin, temporal wasting, resting comfortably. Objective Labs Result Diagrams: 06/15/22 10:51 06/15/22 10:51 [facility] Medical History (Updated 06/13/22 @ 17:45 by Venu Vega DMD) Asthma Chronic back pain greater than 3 months duration Closed intertrochanteric fracture of left femur Depression Drug abuse, IV History of CVA (cerebrovascular accident) Poor dentition Surgical History History of hernia repair Family History Father Unknown family medical history Mother No problems noted. Grandmother Myocardial infarction Grandfather No problems noted. Social History household members: friend(s) Smoking Status: Current some day smoker alcohol intake: current Assessment & Plan Assessment & Plan narrative: 1. Dental pain, improved. Patient has multiple fractured teeth with just the root remaining in place.? Facial CT was done June 05 which revealed tiny residual roots of the lateral mandibular incisors and canines with adjacent periapical lucency.? No lytic or destructive lesion in the mandible.? No maxillary teeth present.? No acute soft tissue findings.? The periapical lucency could be consistent with dental abscess.? Started clindamycin on the evening of June 09.? No diarrhea.? Tolerating well thus far.? Continue hydrocodone and benzocaine for pain. -Dr. Vega oral surgeon assessed on 06/13 and did not think infection present, recommended tooth extraction as outpatient -Orajel PRN 2. Generalized weakness Patient is chronically debilitated.? This admission he underwent 2 brain MRIs which for stroke, C-spine MRI with chronic pathology but no acute cord compression.? Remainder of workup was otherwise unremarkable.? He was initiated on Cymbalta 05/18 and gabapentin 6/27 with good results.? Patient's weakness is improving slowly with therapies. 3. Hyperlipidemia Continue atorvastatin. 4. Polysubstance dependence Currently in remission 5. Prior stroke with residual right-sided weakness Continue aspirin and atorvastatin 6. Microcytic anemia Thalassemia screen negative. 7. Hepatitis-C Positive hep C antibody and hep C RNA greater than 1,000,000.? Will need outpatient follow-up. Resolved issues: Altered mental status/metabolic encephalopathy Oral thrush Acute respiratory failure due to pneumonia Pneumonia Dispo Awaiting placement. Time Spent With Patient Critical Care time: I spent a total of [] minutes of critical care time on this patient's care today; this time is exclusive of procedural time. Quality VTE Deep Vein Thrombosis/Pulmonary Embolism Present on Admission: No
[2022-06-19] MEDS: ATORVASTATIN 20 MG TABLET 40 MG PO (21:19)
[2022-06-20] MEDS: HYDROCODONE/ACET 10/325 TABLET 1 TAB PO ×5 (00:46→20:58)
[2022-06-20] MEDS: LORazepam 1 MG TABLET 0.5 MG PO (00:57)
[2022-06-20 08:00] VITALS: BP 140/76; PULSE 73; RESP 17; TEMP 36.9; O2SAT 95
[2022-06-20] MEDS: ORAJEL 1 EACH TOP ×4 (08:31→20:57)
[2022-06-20] MEDS: ENOXAPARIN 40 MG/0.4 ML SYRINGE SUBCUT (08:32)
[2022-06-20] MEDS: PANTOPRAZOLE DR 40 MG TABLET PO ×2 (08:33→20:59)
[2022-06-20] MEDS: FOLIC ACID 1 MG TABLET PO (08:33)
[2022-06-20] MEDS: DULOXETINE 30 MG CAPSULE 60 MG PO (08:33)
[2022-06-20] MEDS: GABAPENTIN 400 MG CAPSULE PO ×3 (08:33→20:59)
[2022-06-20] MEDS: DOCUSATE 100 MG CAPSULE PO ×2 (08:33→20:58)
[2022-06-20] MEDS: MULTIVITAMIN 1 TABLET 1 TAB PO (08:33)
[2022-06-20] MEDS: IBUPROFEN 400 MG TABLET 600 MG PO ×3 (08:33→20:58)
[2022-06-20] MEDS: ASPIRIN EC 81 MG TABLET PO (08:34)
[2022-06-20] MEDS: SENNOSIDES 8.6 MG TABLET PO ×2 (08:34→20:58)
[2022-06-20] MEDS: LORazepam 0.5 MG TABLET PO ×2 (09:03→23:11)
[2022-06-20] MEDS: fentaNYL 12 MCG/PATCH TOP (10:35)
--- NOTE | 2022-06-20 11:24 | PT.IPTN ---
Current Diagnoses Depression, unspecified (05/01/22) Cerebral infarction, unspecified (05/01/22) Disorder of teeth and supporting structures, unspecified (05/01/22) Spinal stenosis, cervical region (05/01/22) Physical Therapy Treatment Note M2 PT-IP Current Condition Start: 05/07/22 09:18 Freq: NEEDED Status: Active Protocol: Document 06/18/22 11:28 SP (Rec: 06/18/22 12:30 SP [id number]) Physical Therapy Current Condition Current Condition Evaluation Date 05/07/22 Treatment Diagnosis metabolic encephalopathy; polysubstance withdrawal; impaired mobility Onset Date 04/30/22 M3 PT-IP Subjective Start: 05/07/22 09:18 Freq: NEEDED Status: Active Protocol: Document 06/20/22 10:40 KS (Rec: 06/20/22 12:12 KS [id number]) Subjective Physical Therapy Visit Type Type Treatment Note Visit Start Time 10:40 Visit Stop Time 11:24 Total Visit Minutes 44 Notes Co-treat w/ OT. Number of MELT HOUSE DRAG OPERATOR Visits 9 Physical Therapy Visit Comments Patient Comments Pt agreeable to mobilizing with therapy. M4 PT-IP Mobility and Gait Start: 05/07/22 09:18 Freq: NEEDED Status: Active Protocol: Document 06/20/22 10:40 KS (Rec: 06/20/22 12:12 KS [id number]) PT-Bed Mobility Assessment Rolling Type of Rolling Log Rolling,Roll to Right Level of Assist Contact Guard Assistance Supine to Sit Supine to Sit Moderate Assistance,1 Person Assistance,Head of Bed Elevated Scooting Scooting to Edge of Bed Moderate Assistance PT-Transfer Assessment Sit to and From Stand Sit to and from Stand Moderate Assistance,2 Person Assistance,Use of Upper Extremities Equipment Transfer Assistive Device Gait Belt,Front Wheeled Walker Orthotic/Prosthetic Devices or Brace: No Transfers Transfer Destination Chair,Bedside Commode Transfer Technique Squat Pivot, stand pivot Transfer Ability Level of Assist Maximum Assistance,2 Person Assistance,Use of Upper Extremities Comments Mobility Comments Pt in bed upon arrival and agreeable to get into chair. Pt required Mod A for sidelying<>sit today and CGA- Min A for trunk control when sitting EOB. Prior to initiating transfers, pt needs verbal and tactile cues to space feet apart, tuck heels underneath. Pt completed sit<> stand w/ PFW Mod A x2 and then stand step pivot from bed to chair Max A x2 w/ cues and physical assist to advance LE today d/t increased tone and weakness. Following transfer, pt requested to use toilet. Unsafe to ambulate today, so pt performed squat pivot from chair to BSC Mod/Max Ax2 w/ cues for hand placement. After BM, pt required Max Ax 2 for sit<>stand w/ PFW and maintaining balance while ARRANGER ASSEMBLER provided pericare. Then stand step pivot to chair Max A x2. Pt left in chair w/ all needs in reach and alarm on. Gait Assessment Gait Deviations General Gait Pattern Ataxic,Decreased Stride Length ,Decreased Feet Clearance, Flexed Trunk,Lateral Trunk Lean,Narrow Based Gait,Step-to Gait Factors Limiting Gait Function Factors Limiting Gait Function Abnormal Tonal Influences, Decreased Activity Tolerance, Decreased Sensation,Decreased Strength,Difficulty Following Directions,Incoordination, Limited Range of Motion,Pain, Poor Balance,Poor Safety Awareness Comments Gait Comments Unable to progress gait d/t increased tone, weakness, and need for phyiscal assist of advancing LEs during transfers . PT-Balance Assessment Sitting Balance and Reactions Static Sitting Balance Ability Fair Dynamic Sitting Balance Ability Poor Standing Balance and Reactions Static Standing Balance Ability Poor Dynamic Standing Balance Ability Poor Device Used PFW M5 PT-IP Objective Assessments Start: 05/07/22 09:18 Freq: NEEDED Status: Active Protocol: Document 05/07/22 11:05 AW (Rec: 05/07/22 13:30 AW [id number]) Orientation Orientation/Cognition Level of Alertness Lethargic Orientation Name,Month,Place Safety Awareness Decreased Safety Awareness Gross Range of Motion Lower Extremity ROM Assessment Within Functional Limits Strength Lower Extremity Strength Assessment Bilaterally Impaired Comments Strength Comments R grossly 3-/5. L grossly 3+/5 Coordination Assessment Gross Coordination Gross Coordination Impaired Assessment Finger to Nose Test Activity Impossible Foot Tapping Test Minimal Impairment Coordination Comments Pt limited by BUE weakness with UE coordination testing. Sensation Assessment Sensation Gross Sensation WNL Muscle Tone Muscle Tone WNL Yes M6 PT-IP Treatment Start: 05/07/22 09:18 Freq: NEEDED Status: Active Protocol: Document 06/20/22 10:40 KS (Rec: 06/20/22 12:12 KS [id number]) Physical Therapy Treatment Education Education Provided Safety M7 PT-IP Assessment and Plan Start: 05/07/22 09:18 Freq: NEEDED Status: Active Protocol: Document 06/20/22 10:40 KS (Rec: 06/20/22 12:12 KS [id number]) PT Summary Assessment and Plan Potential Rehabilitation Potential Fair Status of Condition at Evaluation Evolving Summary Impairments Pain,ROM,Strength,Balance, Coordination,Sensation,Tone, Cognition,Bed Mobility, Transfers,Gait,Activity Tolerance Progress Towards Goals Slow Progress due to Medical Issues,Slow Progress due to Activity Tolerance Assessment Summary Pt continues to be limited in mobility by increased tone and weakness. 1 PA for bed mobility, but at this time 2PA for transfers. Continued use of PFW today for transfer, however unsafe d/t scissoring gait and pts inability to maintain standing balance and advance LEs. Therefore recommending squat pivot transfers w/ 2 PA for safety. Will continue to progress trunk control and transfers. Continue to recommend SNF for progress strength and functional mobility and potential LTC placement when available. Goals Bed Mobility Goal Contact Guard Assistance Transfer Goal Moderate Assistance Gait Goal Moderate Assistance Gait Distance 100 Other Goals transfers and ambulation using PFW/hemiwalker Days to Meet Goals 10 Frequency of Treatment Frequency Of Treatment Once a Day Treatment Plan Physical Therapy Treatment Plan Bed Mobility Training,Transfer Training,Gait Training, Therapeutic Exercise,Balance Retraining,Discharge Planning, Hot or Cold Pack,Neuromuscular Re-ed,Coordination Retraining Other Recommendations and Next Treatment LE ex pre mobility, sitting Focus balance tolerance, trunk exercises, standing balance/ tolerance. Precautions Other Precautions seizure precautions; falls risk Recommendations To Nursing Amount of Assist Needed 2 Person Assist Discharge Recommendations PT Discharge Recommendations SNF Rehab,LTAC Transportation Needs at Discharge Wheelchair/Cabulance
--- NOTE | 2022-06-20 11:33 | OT.IP.TRT ---
Current Diagnoses Depression, unspecified (05/01/22) Cerebral infarction, unspecified (05/01/22) Disorder of teeth and supporting structures, unspecified (05/01/22) Spinal stenosis, cervical region (05/01/22) Occupational Therapy Treatment Note M2 OT-IP Current Condition Start: 05/07/22 12:13 Freq: Status: Active Protocol: Document 05/07/22 12:13 CGR (Rec: 05/07/22 12:37 CGR [id number]) Occupational Therapy Current Condition Current Condition Evaluation Date 05/07/22 Treatment Diagnosis generalized weakness, hx IV drug use, R CVA 2015 Diagnosis Onset Date 05/01/22 M3 OT- IP Subjective and Pain Start: 05/07/22 12:13 Freq: Status: Active Protocol: Document 06/20/22 10:40 [facility] (Rec: 06/20/22 12:13 [facility] [id number]) OT- Subjective Occupational Therapy Visit Type Type Treatment Note Visit Start Time 10:40 Visit Stop Time 11:33 Total Visit Minutes 53 Occupational Therapy Visit Comments Patient Comments Pt agreed to get up and requested to use the toilet. Patient/Caregiver Goals TO get better and see his dog. OT Pain Assessment Pain When Pain Assessed At Rest Pain Present Pain Present Pain Reported M4 OT- IP ADL's Start: 05/07/22 12:13 Freq: Status: Active Protocol: Document 06/20/22 10:40 [facility] (Rec: 06/20/22 12:13 [facility] [id number]) OT [id number] Comments OT Self-Feeding Comments NOt at meal time. OT ADL-Grooming Comments OT Grooming Comments Pt able to wash his face after set up of wash cloth. OT ADL-Oral Care Comments Oral Care Comments Not performed. OT ADL-Dressing General Eval Lower Body Dressing Ability Maximum Assistance,Total Assistance Areas Needing Assistance Underpants/Brief,Socks Comments OT Dressing Comments Pt able to bridge his hips up in bed so able to change out his brief. Pt needing assist to undo tabs of brief and not able to feel the tabs to assist. Pt assist for all hygiene needs. OT ADL-Toileting General Evaluation Toileting Ability Total Assistance Comments OT Toileting Comments MAX AX 2 to stand to FWW with right platform and assist from nursing aid to clean pt up after having a bowel movement on the BSC. OT ADL-Bathing Bathing Type Bathing Type Sponge Bath General Evaluation Areas Needing Assistance Wash/Dry Upper Body,Wash/Dry Back,Wash/Dry Perineal Area, Wash/Dry Lower Extremities Comments OT Bathing Comments Pt having able to assist to wash his right arm and chest while seated on the edge of the bed. M5 OT- IP IADL's Start: 05/07/22 12:13 Freq: Status: Active Protocol: Document 05/07/22 12:13 CGR (Rec: 05/07/22 12:37 CGR [id number]) OT-Instrumental Activities of Daily Living Deficits IADL Deficits Identified Deficits Home Safety Awareness Awareness of Need for Assistance at Home Decreased Awareness Ability to Problem Solve Emergency Unable to Problem Solve Situations Medication Management Medication Management Comments Concerns about pt's ability to perform consistently Money Management Money Management Comments Concerns about pt's ability to perform consistently Meal Preparation Meal Preparation Comments Concerns about pt's ability to perform consistently Agricultural Engineering Technicians Agricultural Engineering Technicians Comments Concerns about pt's ability to perform consistently M6 OT- IP Functional Cognition Start: 05/07/22 12:13 Freq: Status: Active Protocol: Document 06/20/22 10:40 [facility] (Rec: 06/20/22 12:13 [facility] [id number]) Cognitive Factors Limiting Selfcare Function Cognitive Comments Cognitive Assessment Comments Pt cooperative. Pt able to read a letter written from his mother. Pt needing cues for safety for correct positioning and for hand and and feet placement. M7 OT- IP Mobility and Balance Start: 05/07/22 12:13 Freq: Status: Active Protocol: Document 06/20/22 10:40 [facility] (Rec: 06/20/22 12:13 [facility] [id number]) OT- Bed Mobility Assessment Supine to Sit Supine to Sit Assist Moderate Assistance OT-Transfer Assessment Sit to and From Stand Sit to and from Stand Maximum Assistance,2 Person Assistance Transfers Transfer Ability Moderate Assistance,Maximum Assistance,Total Assistance,2 Person Assistance Technique Transfer Destination Bed,Chair,Toilet Transfer Technique Stand Step Pivot Devices Transfer Assistive Devices None,Gait Belt,Front Wheeled Walker Comments Mobility Comments MODA to get his trunk upright. MOD/MAXA X2 for squat pivot transfer to [place] to the left. MAXAX2 to stand to FWW while nursing aid assist for brief and hygiene needs. MAX/total assist x2 to transfer to the right side his weaker side with FWW, due to increased tone pt getting his legs crossed up and having difficulty for leg placement and needing assist to help move his feet. Able to educate nursing regarding at this time much safer to do squat pivot transfer to the left. In addition, option of use of oswaldo if pt not doing well. OT- Balance Assessment Sitting Balance and Reactions Static Sitting Balance Ability Poor Dynamic Sitting Balance Ability Poor Standing Balance and Reactions Static Standing Balance Ability Poor Dynamic Standing Balance Ability Poor Comments Other Balance Tests/Deviations/Treatment Decreased sitting balance and : posture today and needing physical assist and cues to sit to midline. M9 OT- IP Assessment and Plan Start: 05/07/22 12:13 Freq: Status: Active Protocol: Document 06/20/22 10:40 [facility] (Rec: 06/20/22 12:13 [facility] [id number]) OT Summary Assessment and Plan Potential Rehabilitation Potential Fair Analytic Complexity at Evaluation High Summary OT Impairments Pain,Strength,Balance, Coordination,Functional Cognition,Functional Mobility, Self-Feeding,Grooming,Dressing ,Toileting,Bathing,Toilet Transfers,Shower Transfers, Activity Tolerance Progress Towards Goals Slow Progress due to Pain,Slow Progress due to Medical Issues,Slow Progress due to Activity Tolerance Assessment Summary Pt having increased tone during movements today and at this time best to do squat pivot transfers x2 to the left, pt's nurse and nursing aid educated. Goals Self-Feeding Goal Standby Assistance Grooming Goal Minimal Assistance Dressing Goal Moderate Assistance Toileting Goal Moderate Assistance Bathing Goal Moderate Assistance Toilet Transfer Goal Moderate Assistance Shower Transfer Goal Moderate Assistance Days to Meet Goals 44 Frequency of Treatment Frequency Of Treatment Twice a Day Treatment Plan OT Treatment Plan ADL Training,Functional Cognition Training,Functional Mobility,Neuromuscular Re- education,Therapeutic Exercises,Patient/Family Education,Discharge Planning Discharge Recommendations OT Discharge Recommendations SNF Rehab,LTAC Transportation Needs at Discharge Wheelchair/Cabulance
--- NOTE | 2022-06-20 14:49 | CM.DPC ---
Addendum entered by CARLO Leonardo 06/20/22 15:49: ADD: Spoke to [facility] Maria Fernanda and she confirms that she spoke to Kamala at [facility] and they have come to an agreement for pt to d/c to [facility] likely by Sat06/22/22. Maria Fernanda will finalize the financial details tomorrow and send to [facility] and Maria Fernanda also spoke to pt and confirmed his preference is [facility] due to location in [place] vs going to [facility] in [place] and is agreeable to AF at d/c. SW also spoke to [facility] and they confirm they received new pt intake form and just need finalized reconcilled med list at d/c. SW attempted to contact Hospitalist to update but end of shift and couldn't be found. Will follow up tomorrow for sending final meds to pharmacy and determining Medicaid transport via cabulance vs BLS. BF Original Note: LTC Placement MELISA met bedside with pt and assisted in FaceTime assessment with Kamala at [facility] in [place] ([phone] [place] [address]). Pt somewhat somnolent but participated and then pt's RN spoke to Kamala and answered questions and Kamala states she feels they can meet pt's needs and would be willing to accept if approved and finalized through [facility]. Kamala requesting HH referral to [facility] and to fax [facility] pt's medication and new pt form. Kamala requests pt's assigned [facility] worker Maria Fernanda give her a call to confirm placement. MELISA called Maria Fernanda and updated on assessment with [facility] and request that she call Kamala and Maria Fernanda agreeable. MELISA called [facility] with new referral and faxed new referral along with signed F2F to review to fax number [phone] but will need HH orders and d/c summary faxed at discharge. MELISA called [facility] [phone] and requested the new patient intake forms and they faxed the Patient Agreement intake form to complete and MELISA completed and met bedside with pt and he was agreeable to signing and SW faxed that form along with pt's MAR and copy of his active [facility] Medicare Adv information back to fax [phone]. During FaceTime assessment pt mentioned being hopeful he could still d/c back to [facility] or with a friend who is supposed to be flying in to visit him tomorrow from [place] and pt is hopeful to talk him into bringing him back to [place] with him and taking care of him. SW discussed maintaining the hope of becoming more independent again and his hesitancy of leaving [facility] but the reality of his current assist level. SW discussed once he leaves the hospital and is in a more typical living situation where he can go outside and have visitors and go places for visits he will likely improve more quickly and possibly return to being more independent and eventually moving back to [place]. Pt acknowledged understanding and confirmed that if his friend cannot take care of him and move him to [place] when he visits tomorrow, then pt is agreeable with d/c to [facility] outside of [facility] and d/c to [facility] in [place]. Per other SW today, [facility] in [place] ([phone], [place]) they are still willing to accept if pt's ETR is approved by [facility] financial dept towards increasing his daily rate. Maria Fernanda and Christianne from [facility] have submitted the ETR request for increased rate and awaiting to determine if it will be approved. Plan: SW to follow closely tomorrow with Kamala from [facility] to confirm Maria Fernanda from [facility] have spoken and if plans can be made for pt to move into their AF in the next day or two. SW to follow for backup plan of [facility] to be approved for higher daily rate to accept. CARLO Leonardo
--- NOTE | 2022-06-20 14:50 | OT.IP.TRT ---
Current Diagnoses Depression, unspecified (05/01/22) Cerebral infarction, unspecified (05/01/22) Disorder of teeth and supporting structures, unspecified (05/01/22) Spinal stenosis, cervical region (05/01/22) Occupational Therapy Treatment Note M2 OT-IP Current Condition Start: 05/07/22 12:13 Freq: Status: Active Protocol: Document 05/07/22 12:13 CGR (Rec: 05/07/22 12:37 CGR [id number]) Occupational Therapy Current Condition Current Condition Evaluation Date 05/07/22 Treatment Diagnosis generalized weakness, hx IV drug use, R CVA 2015 Diagnosis Onset Date 05/01/22 M3 OT- IP Subjective and Pain Start: 05/07/22 12:13 Freq: Status: Active Protocol: Document 06/20/22 14:50 [facility] (Rec: 06/20/22 14:57 [facility] [id number]) OT- Subjective Occupational Therapy Visit Type Type Treatment Note Visit Start Time 14:30 Visit Stop Time 14:50 Total Visit Minutes 20 Occupational Therapy Visit Comments Patient Comments Pt tearful as assisting pt to help read letters from his mom in the . OT Pain Assessment Pain When Pain Assessed At Rest Pain Present Pain Present Pain Reported M6 OT- IP Functional Cognition Start: 05/07/22 12:13 Freq: Status: Active Protocol: Document 06/20/22 14:50 [facility] (Rec: 06/20/22 14:57 [facility] [id number]) Cognitive Factors Limiting Selfcare Function Cognitive Comments Cognitive Assessment Comments Pt agreeing to dictate a letter to his mom in the as it is her birthday today. OT able to write for the pt as pt unable to use his right hand to write at this time due to swelling and decreased functional use of RUE. Pt still hoping to go back to the [place] and have PT, but knows that is not realistic as OT able to remind the pt that he is requiring assistance at all times for most ADL's and his mobility needs. Able to show pt's nurse the letter to be sure it is appropriate. Protocol: Document 06/20/22 14:50 [facility] (Rec: 06/20/22 14:57 [facility] [id number]) OT Summary Assessment and Plan Potential Rehabilitation Potential Fair Analytic Complexity at Evaluation High Summary OT Impairments Pain,Strength,Balance, Coordination,Functional Cognition,Functional Mobility, Self-Feeding,Grooming,Dressing ,Toileting,Bathing,Toilet Transfers,Shower Transfers, Activity Tolerance Progress Towards Goals Slow Progress due to Pain,Slow Progress due to Medical Issues,Slow Progress due to Activity Tolerance Assessment Summary Assisted pt to help write a letter to his mom in the [place]. Goals Self-Feeding Goal Standby Assistance Grooming Goal Minimal Assistance Dressing Goal Moderate Assistance Toileting Goal Moderate Assistance Bathing Goal Moderate Assistance Toilet Transfer Goal Moderate Assistance Shower Transfer Goal Moderate Assistance Days to Meet Goals 20 Frequency of Treatment Frequency Of Treatment Twice a Day Treatment Plan OT Treatment Plan ADL Training,Functional Cognition Training,Functional Mobility,Neuromuscular Re- education,Therapeutic Exercises,Patient/Family Education,Discharge Planning Discharge Recommendations OT Discharge Recommendations SNF Rehab,LTAC Transportation Needs at Discharge Wheelchair/Cabulance
--- NOTE | 2022-06-20 18:26 | PC.NURSE ---
Pt is AxOx4, needs 2 persons assistance with transfer but only 1 person assistance need with change of brief. Pt is able to lift his hip while changing. VSS, pt is pain is controlled well with his routine pain med. Pt seems very down and all day sleepy and not much talkative. I can see teary eyes in him. Pt ate well as usual. Pt maybe d/c to [facility] on Saturday if everything goes well. Pt's mom arranged his crane operator from [facility] on to see the pt. The information will pass on to next shift and the charge nurse. Otherwise, no other changes.
[2022-06-20 19:00] VITALS: BP 131/71; PULSE 78; RESP 18; TEMP 36.6; O2SAT 95
--- NOTE | 2022-06-20 19:34 | PM.PN.1 ---
Subjective Subjective Date Patient Seen: 06/20/22 Interval history: No complaints today. May have accepting facility on Saturday per case management. Exam Vital Signs (past 8 hours): Oxygen Delivery Method Room Air Oxygen Flow Rate 0 Narrative Exam Narrative: GEN: Middle-aged male, very thin, temporal wasting, resting comfortably. Objective Labs Result Diagrams: 06/15/22 10:51 06/15/22 10:51 [facility] Medical History (Updated 06/13/22 @ 17:45 by Venu Vega DMD) Asthma Chronic back pain greater than 3 months duration Closed intertrochanteric fracture of left femur Depression Drug abuse, IV History of CVA (cerebrovascular accident) Poor dentition Surgical History History of hernia repair Family History Father Unknown family medical history Mother No problems noted. Grandmother Myocardial infarction Grandfather No problems noted. Social History household members: friend(s) Smoking Status: Current some day smoker alcohol intake: current Assessment & Plan Assessment & Plan narrative: 1. Dental pain, improved. Patient has multiple fractured teeth with just the root remaining in place.? Facial CT was done June 05 which revealed tiny residual roots of the lateral mandibular incisors and canines with adjacent periapical lucency.? No lytic or destructive lesion in the mandible.? No maxillary teeth present.? No acute soft tissue findings.? The periapical lucency could be consistent with dental abscess.? Started clindamycin on the evening of June 09.? No diarrhea.? Tolerating well thus far.? Continue hydrocodone and benzocaine for pain. -Dr. Vega oral surgeon assessed on 06/13 and did not think infection present, recommended tooth extraction as outpatient -Oraivy PRN 2. Generalized weakness Patient is chronically debilitated.? This admission he underwent 2 brain MRIs which for stroke, C-spine MRI with chronic pathology but no acute cord compression.? Remainder of workup was otherwise unremarkable.? He was initiated on Cymbalta 05/18 and gabapentin 05/21 with good results.? Patient's weakness is improving slowly with therapies. 3. Hyperlipidemia Continue atorvastatin. 4. Polysubstance dependence Currently in remission 5. Prior stroke with residual right-sided weakness Continue aspirin and atorvastatin 6. Microcytic anemia Thalassemia screen negative. 7. Hepatitis-C Positive hep C antibody and hep C RNA greater than 1,000,000.? Will need outpatient follow-up. Resolved issues: Altered mental status/metabolic encephalopathy Oral thrush Acute respiratory failure due to pneumonia Pneumonia Dispo Awaiting placement. Time Spent With Patient Critical Care time: I spent a total of [] minutes of critical care time on this patient's care today; this time is exclusive of procedural time. Quality VTE Deep Vein Thrombosis/Pulmonary Embolism Present on Admission: No
[2022-06-20] MEDS: ATORVASTATIN 20 MG TABLET 40 MG PO (20:57)
[2022-06-21] MEDS: ORAJEL 1 EACH TOP ×3 (01:07→21:15)
[2022-06-21] MEDS: HYDROCODONE/ACET 10/325 TABLET 1 TAB PO ×4 (01:07→21:13)
[2022-06-21 08:42] VITALS: BP 147/77; PULSE 86; RESP 18; TEMP 36.4; O2SAT 94
--- NOTE | 2022-06-21 08:54 | CM.DPC ---
Addendum entered by Claudia Segal R.N. 06/21/22 14:27: Called [facility], for Dr. Servin has signed med sheets, included hard copies of narcotics. Confirmed with Jaki at [facility], they did have his disposition. Let her know that patient will be moving into [facility] on Saturday. She originally had him as discharging tomorrow. Faxed over his med sheets. She gave the alternate fax number if it does not go through. Called Kamala at [facility]. Asked if she wants med sheets faxed. She gave her fax number of: [phone]. Faxed her med sheets as well. Let her know that this case manage will arrange transportation, for coal picker here at 0900 on Saturday, and he would arrive there between 10:30-11:00. Confirmed with P.T, that patient can't sit up prolonged in a wheel-chair for long, so will need to go BLS. Patient is Medicaid, so will mention this to transport services. Also, [facility] is at full capacity. Kristin kindly called [facility], and found the [facility] that serves [place], and she faxed referral. Will complete home health. Called [facility] to confirm that patient has transportation, and confirmed that he does. Let Bhavesh at [facility] know that patient needs BLS, since he is not safe to sit up in wheelchair. Called ambulance and spoke to Ja, and set up transport for Saturday, coal picker at 0900. Gave him the address of [facility], and gave him Kamala's phone number. Let him know that this case manage contacted [facility] to ensure that he has transportation benefits. Will go ahead and complete BLS form, and patient will be updated. Original Note: DCP Cont: Called Maria Fernanda Danielle, patient's [facility] community case manager. Confirmed that she did get all of the arrangements made at the adult family home. She did indicate that she had spoken to Kamala at [facility] yesterday pm, after 5:00pm, and indicated that they can't accept until Saturday. Let Maria Fernanda know that this DC Correspondence Clerk would call her to verify this. Maria Fernanda indicated, she just wants an email when patient is ready to leave. Called Kamala at [facility]. She stated, she can't accept until Saturday, because she does not work on the week-end, and wants to ensure that she has enough staff. Mentioned to her that this DC Correspondence Clerk's co-worker, Vivienne, had spoken to her and indicated that she can accept tomorrow. This DC Correspondence Clerk asked her again why she can't accept on a Saturday, since it is not the week-end, and she mentioned it has to do with staffing, and me being able to take time to meet with patient. Asked her if patient can arrive at a certain time on Saturday, and she indicated, if patient can leave here by 11:00 to give adequate time to get there. This housing case manager can go ahead and set up transport for Saturday, and can have Dr. Servin finalize meds to send to their pharmacy. Updated dietary manager regarding situation, as goal was for patient to leave by this week. Will update in team rounds, and will work on getting patient set up for Saturday. Other adult family home, [facility], wanted increased rates, and would have taken more time for negotiations. P: DCP to work on DC for Saturday, and have it set up. Claudia Segal RN/Body Stylist
--- NOTE | 2022-06-21 10:03 | CM.DPNOTE ---
Faxed clinicals to [facility] [phone] per Kacie. Kristin Schwarz, [facility]ER[facility] Assist.
[2022-06-21] MEDS: MULTIVITAMIN 1 TABLET 1 TAB PO (10:12)
[2022-06-21] MEDS: DOCUSATE 100 MG CAPSULE PO ×2 (10:12→21:13)
[2022-06-21] MEDS: ASPIRIN EC 81 MG TABLET PO (10:12)
[2022-06-21] MEDS: GABAPENTIN 400 MG CAPSULE PO ×3 (10:12→21:15)
[2022-06-21] MEDS: IBUPROFEN 400 MG TABLET 600 MG PO ×3 (10:13→21:14)
[2022-06-21] MEDS: SENNOSIDES 8.6 MG TABLET PO ×2 (10:13→21:15)
[2022-06-21] MEDS: PANTOPRAZOLE DR 40 MG TABLET PO ×2 (10:13→21:15)
[2022-06-21] MEDS: DULOXETINE 30 MG CAPSULE 60 MG PO (10:14)
[2022-06-21] MEDS: ENOXAPARIN 40 MG/0.4 ML SYRINGE SUBCUT (10:14)
[2022-06-21] MEDS: FOLIC ACID 1 MG TABLET PO (10:14)
--- NOTE | 2022-06-21 10:48 | PC.NURSE ---
Patient with flat affect, states the he feels down today. He had some tears earlier, up to commode with 2 person assist and pivot. Patient incontinent of urine. Ativan not given at this time as patient is sleepy and tired. He was complaining of pain 8/10 and vicodin helpful.
--- NOTE | 2022-06-21 11:38 | OT.IPNOTE ---
Pt on the phone, to check on the pt later. Spoke to nursing to states that pt is just squat pivot transfer only at this time for safety. Nurse agreed and states to pass along to other shifts.
--- NOTE | 2022-06-21 12:20 | OT.IP.TRT ---
Current Diagnoses Depression, unspecified (05/01/22) Cerebral infarction, unspecified (05/01/22) Disorder of teeth and supporting structures, unspecified (05/01/22) Spinal stenosis, cervical region (05/01/22) Occupational Therapy Treatment Note M2 OT-IP Current Condition Start: 05/07/22 12:13 Freq: Status: Active Protocol: Document 05/07/22 12:13 [facility] (Rec: 05/07/22 12:37 CGR [id number]) Occupational Therapy Current Condition Current Condition Evaluation Date 05/07/22 Treatment Diagnosis generalized weakness, hx IV drug use, R CVA 2015 Diagnosis Onset Date 05/01/22 M3 OT- IP Subjective and Pain Start: 05/07/22 12:13 Freq: Status: Active Protocol: Document 06/21/22 12:22 [facility] (Rec: 06/21/22 12:30 [facility] [id number]) OT- Subjective Occupational Therapy Visit Type Type Treatment Note Visit Start Time 12:00 Visit Stop Time 12:20 Total Visit Minutes 20 Occupational Therapy Visit Comments Patient Comments Pt a bit tearful and just eating his lunch. Able to talk to pt's nurse of how pt is feeling. Patient/Caregiver Goals TO get better. OT Pain Assessment Pain When Pain Assessed At Rest Pain Present Pain Present Pain Reported M4 OT- IP ADL's Start: 05/07/22 12:13 Freq: Status: Active Protocol: Document 06/21/22 12:22 [facility] (Rec: 06/21/22 12:30 [facility] [id number]) OT GHG-Cuvy-Nwsoivx General Evaluation Areas Needing Assistance Opening Containers Devices Self-Feeding Devices Plate Guard Comments OT Self-Feeding Comments Able to educate nursing staff how to attach plate guard to the plate so pt able to load the food on his fork easier without pushing the food off the plate. M8 OT- IP Objective Assessments Start: 05/07/22 12:13 Freq: Status: Active Protocol: Document 06/12/22 16:54 [facility] (Rec: 06/12/22 16:59 [facility] [id number]) OT Gross Range of Motion Upper Extremity Range of Motion ROM Impairments Rue hand initially only able to flex at MCP 10 degrees and after stretching, carpal mobs able to close his fist 25%. M9 OT- IP Assessment and Plan Start: 05/07/22 12:13 Freq: Status: Active Protocol: Document 06/21/22 12:22 [facility] (Rec: 06/21/22 12:30 [facility] [id number]) OT Summary Assessment and Plan Potential Rehabilitation Potential Fair Analytic Complexity at Evaluation High Summary OT Impairments Pain,Strength,Balance, Coordination,Functional Cognition,Functional Mobility, Self-Feeding,Grooming,Dressing ,Toileting,Bathing,Toilet Transfers,Shower Transfers, Activity Tolerance Progress Towards Goals Slow Progress due to Pain,Slow Progress due to Medical Issues,Slow Progress due to Activity Tolerance Assessment Summary Able to educate pt and nursing aid of how to use plate guard on his plate to prevent food from spilling over the plate. To decreased OT session to 1x/ day after today as pt not able to tolerate as much therapy at this time. Goals Self-Feeding Goal Standby Assistance Grooming Goal Minimal Assistance Dressing Goal Moderate Assistance Toileting Goal Moderate Assistance Bathing Goal Moderate Assistance Toilet Transfer Goal Moderate Assistance Shower Transfer Goal Moderate Assistance Days to Meet Goals 40 Frequency of Treatment Frequency Of Treatment Twice a Day Treatment Plan OT Treatment Plan ADL Training,Functional Cognition Training,Functional Mobility,Neuromuscular Re- education,Therapeutic Exercises,Patient/Family Education,Discharge Planning Discharge Recommendations OT Discharge Recommendations SNF Rehab,LTAC Transportation Needs at Discharge Stretcher/Ambulance
[2022-06-21] MEDS: LORazepam 0.5 MG TABLET PO ×2 (12:25→22:07)
--- NOTE | 2022-06-21 13:20 | OT.IP.TRT ---
Current Diagnoses Depression, unspecified (05/01/22) Cerebral infarction, unspecified (05/01/22) Disorder of teeth and supporting structures, unspecified (05/01/22) Spinal stenosis, cervical region (05/01/22) Occupational Therapy Treatment Note M2 OT-IP Current Condition Start: 05/07/22 12:13 Freq: Status: Active Protocol: Document 05/07/22 12:13 CGR (Rec: 05/07/22 12:37 CGR [id number]) Occupational Therapy Current Condition Current Condition Evaluation Date 05/07/22 Treatment Diagnosis generalized weakness, hx IV drug use, R CVA 2015 Diagnosis Onset Date 05/01/22 M3 OT- IP Subjective and Pain Start: 05/07/22 12:13 Freq: Status: Active Protocol: Document 06/21/22 13:20 [facility] (Rec: 06/21/22 15:15 [facility] [id number]) OT- Subjective Occupational Therapy Visit Type Type Treatment Note Visit Start Time 13:20 Visit Stop Time 13:50 Occupational Therapy Visit Comments Patient Comments Able to see pt with KIDNEY TRIMMER to work on standing balance. Patient/Caregiver Goals TO get better. OT Pain Assessment Pain When Pain Assessed At Rest Pain Present Pain Present Pain Reported M4 OT- IP ADL's Start: 05/07/22 12:13 Freq: Status: Active Protocol: Document 06/21/22 12:22 [facility] (Rec: 06/21/22 12:30 [facility] [id number]) OT [id number] General Evaluation Areas Needing Assistance Opening Containers Devices Self-Feeding Devices Plate Guard Comments OT Self-Feeding Comments Able to educate nursing staff how to attach plate guard to the plate so pt able to load the food on his fork easier without pushing the food off the plate. M5 OT- IP IADL's Start: 05/07/22 12:13 Freq: Status: Active Protocol: Document 05/07/22 12:13 CGR (Rec: 05/07/22 12:37 CGR [id number]) OT-Instrumental Activities of Daily Living Deficits IADL Deficits Identified Deficits Home Safety Awareness Awareness of Need for Assistance at Home Decreased Awareness Ability to Problem Solve Emergency Unable to Problem Solve Situations Medication Management Medication Management Comments Concerns about pt's ability to perform consistently Money Management Money Management Comments Concerns about pt's ability to perform consistently Meal Preparation Meal Preparation Comments Concerns about pt's ability to perform consistently Geoscience Specialist Geoscience Specialist Comments Concerns about pt's ability to perform consistently M6 OT- IP Functional Cognition Start: 05/07/22 12:13 Freq: Status: Active Protocol: Document 06/21/22 13:20 [facility] (Rec: 06/21/22 15:15 [facility] [id number]) Cognitive Factors Limiting Selfcare Function Cognitive Comments Cognitive Assessment Comments Pt in better spirits in the PM and able to talk to therapist of his past jobs and experiences. KIDNEY TRIMMER able to open mail for pt as pt just realizing that he has finally received his debit card. Pt requested his debit card be placed in his wallet. Able to let case management and nursing know of placement of debit card. M7 OT- IP Mobility and Balance Start: 05/07/22 12:13 Freq: Status: Active Protocol: Document 06/21/22 13:20 [facility] (Rec: 06/21/22 15:15 [facility] [id number]) OT-Transfer Assessment Sit to and From Stand Sit to and from Stand Maximum Assistance,2 Person Assistance OT- Balance Assessment Standing Balance and Reactions Static Standing Balance Ability Poor Dynamic Standing Balance Ability Poor Comments Other Balance Tests/Deviations/Treatment Pt still requires MAX AX 2 to : stand to fww with right UE platform and needing from CGA x2 to ROULA x2 to balance, cues to extend his trunk and legs. Pt able to stand up t 3 minutes at a time today. Pt able to tolerate well today. M8 OT- IP Objective Assessments Start: 05/07/22 12:13 Freq: Status: Active Protocol: Document 06/12/22 16:54 [facility] (Rec: 06/12/22 16:59 [facility] [id number]) OT Gross Range of Motion Upper Extremity Range of Motion ROM Impairments Rue hand initially only able to flex at MCP 10 degrees and after stretching, carpal mobs able to close his fist 25%. M9 OT- IP Assessment and Plan Start: 05/07/22 12:13 Freq: Status: Active Protocol: Document 06/21/22 13:20 [facility] (Rec: 06/21/22 15:15 [facility] [id number]) OT Summary Assessment and Plan Potential Rehabilitation Potential Fair Analytic Complexity at Evaluation High Summary OT Impairments Pain,Strength,Balance, Coordination,Functional Cognition,Functional Mobility, Self-Feeding,Grooming,Dressing ,Toileting,Bathing,Toilet Transfers,Shower Transfers, Activity Tolerance Progress Towards Goals Progressing Toward Goals,Slow Progress due to Pain,Slow Progress due to Medical Issues Assessment Summary Pt able to stand up to 3 minutes with ROULA x2 after inital MAX AX 2 to stand to FWW. To decrease pt to 1x/day at this time as pt now looking at adult family home to be discharged and have home health. Goals Self-Feeding Goal Standby Assistance Grooming Goal Minimal Assistance Dressing Goal Moderate Assistance Toileting Goal Moderate Assistance Bathing Goal Moderate Assistance Toilet Transfer Goal Moderate Assistance Shower Transfer Goal Moderate Assistance Days to Meet Goals 40 Frequency of Treatment Frequency Of Treatment Once a Day Treatment Plan OT Treatment Plan ADL Training,Functional Cognition Training,Functional Mobility,Neuromuscular Re- education,Therapeutic Exercises,Patient/Family Education,Discharge Planning Discharge Recommendations OT Discharge Recommendations Home Health,LTAC Transportation Needs at Discharge Stretcher/Ambulance
--- NOTE | 2022-06-21 13:50 | PT.IPTN ---
Current Diagnoses Depression, unspecified (05/01/22) Cerebral infarction, unspecified (05/01/22) Disorder of teeth and supporting structures, unspecified (05/01/22) Spinal stenosis, cervical region (05/01/22) Physical Therapy Treatment Note M2 PT-IP Current Condition Start: 05/07/22 09:18 Freq: NEEDED Status: Active Protocol: Document 06/18/22 11:28 SP (Rec: 06/18/22 12:30 SP [id number]) Physical Therapy Current Condition Current Condition Evaluation Date 05/07/22 Treatment Diagnosis metabolic encephalopathy; polysubstance withdrawal; impaired mobility Onset Date 04/30/22 M3 PT-IP Subjective Start: 05/07/22 09:18 Freq: NEEDED Status: Active Protocol: Document 06/21/22 13:20 KS (Rec: 06/21/22 14:05 KS [id number]) Subjective Physical Therapy Visit Type Type Treatment Note Visit Start Time 13:20 Visit Stop Time 13:50 Total Visit Minutes 30 Notes Co-treat w/ OT. Number of CURTAINS AND DRAPERIES SALESPERSON Visits 10 Physical Therapy Visit Comments Patient Comments Pt agreeable to mobilizing with therapy. M4 PT-IP Mobility and Gait Start: 05/07/22 09:18 Freq: NEEDED Status: Active Protocol: Document 06/21/22 13:20 KS (Rec: 06/21/22 14:05 KS [id number]) PT-Bed Mobility Assessment Scooting Scooting to Edge of Bed Contact Guard Assistance, Minimal Assistance PT-Transfer Assessment Sit to and From Stand Sit to and from Stand Maximum Assistance,2 Person Assistance,Use of Upper Extremities Equipment Transfer Assistive Device Gait Belt,Front Wheeled Walker Orthotic/Prosthetic Devices or Brace: No Transfers Transfer Destination Chair Transfer Technique sit<>stand Transfer Ability Level of Assist Maximum Assistance,2 Person Assistance,Use of Upper Extremities Comments Mobility Comments Pt in chair upon arrival and agreeable to work on sitting balance. Pt CGA to Min A for scooting EOC for trunk control . Max A x2 for sit<>stand w/ PFW. Pt able to stand ~2 min w / CGA to Min A x2 w/ frequent cues for upright posture/knee and hip extension. Pt performed 2 additional sit<> stands and stood another 2 min on second and 3 min on third stand again w/ CGA to Min A x2 and cues w/ PFW. He required seated rest breaks between each stand. Pt cont to have difficulty controlling LEs but showed improved trunk control and balance today. Pt left in chair w/ all needs in reach. Gait Assessment Comments Gait Comments Did not assess. PT-Balance Assessment Sitting Balance and Reactions Static Sitting Balance Ability Fair Dynamic Sitting Balance Ability Poor Standing Balance and Reactions Static Standing Balance Ability Poor Dynamic Standing Balance Ability Poor Device Used PFW M5 PT-IP Objective Assessments Start: 05/07/22 09:18 Freq: NEEDED Status: Active Protocol: Document 05/07/22 11:05 AW (Rec: 05/07/22 13:30 AW [id number]) Orientation Orientation/Cognition Level of Alertness Lethargic Orientation Name,Month,Place Safety Awareness Decreased Safety Awareness Gross Range of Motion Lower Extremity ROM Assessment Within Functional Limits Strength Lower Extremity Strength Assessment Bilaterally Impaired Comments Strength Comments R grossly 3-/5. L grossly 3+/5 Coordination Assessment Gross Coordination Gross Coordination Impaired Assessment Finger to Nose Test Activity Impossible Foot Tapping Test Minimal Impairment Coordination Comments Pt limited by BUE weakness with UE coordination testing. Sensation Assessment Sensation Gross Sensation WNL Muscle Tone Muscle Tone WNL Yes M6 PT-IP Treatment Start: 05/07/22 09:18 Freq: NEEDED Status: Active Protocol: Document 06/21/22 13:20 KS (Rec: 06/21/22 14:05 KS [id number]) Physical Therapy Treatment Education Education Provided Safety M7 PT-IP Assessment and Plan Start: 05/07/22 09:18 Freq: NEEDED Status: Active Protocol: Document 06/21/22 13:20 KS (Rec: 06/21/22 14:05 KS [id number]) PT Summary Assessment and Plan Potential Rehabilitation Potential Fair Status of Condition at Evaluation Evolving Summary Impairments Pain,ROM,Strength,Balance, Coordination,Sensation,Tone, Cognition,Bed Mobility, Transfers,Gait,Activity Tolerance Progress Towards Goals Slow Progress due to Medical Issues,Slow Progress due to Activity Tolerance Assessment Summary Pt continues to be limited by weakness and tone, but able to perform 3 sit<>stands (2 min, 2 min, 3 min) w/ CGA to Min A x2 to maintain standing balance w/ PFW. Still recommending squat pivot transfers w/ 2 PA for safety, nursing aware. Will continue to progress trunk control and transfers and balance. Continue to recommend SNF for progress strength and functional mobility and potential LTC placement when available. Goals Bed Mobility Goal Contact Guard Assistance Transfer Goal Moderate Assistance Gait Goal Moderate Assistance Gait Distance 100 Other Goals transfers and ambulation using PFW/hemiwalker Days to Meet Goals 10 Frequency of Treatment Frequency Of Treatment Once a Day Treatment Plan Physical Therapy Treatment Plan Bed Mobility Training,Transfer Training,Gait Training, Therapeutic Exercise,Balance Retraining,Discharge Planning, Hot or Cold Pack,Neuromuscular Re-ed,Coordination Retraining Other Recommendations and Next Treatment LE ex pre mobility, sitting Focus balance tolerance, trunk exercises, standing balance/ tolerance. Precautions Other Precautions seizure precautions; falls risk Recommendations To Nursing Amount of Assist Needed 2 Person Assist Discharge Recommendations PT Discharge Recommendations SNF Rehab,LTAC Transportation Needs at Discharge Wheelchair/Cabulance
--- NOTE | 2022-06-21 15:55 | PM.PN.1 ---
Subjective Subjective Date Patient Seen: 06/21/22 Interval history: No complaints today. May have accepting facility on Saturday per case management. Exam Vital Signs (past 8 hours): - 06/21/22 08:42 Temperature 97.5 F L Pulse Rate 86 Respiratory Rate 86 H Blood Pressure 147/77 H Pulse Oximetry 94 Oxygen Flow Rate 0 Oxygen Delivery Method Room Air Oxygen Flow Rate 0 Narrative Exam Narrative: GEN: Middle-aged male, very thin, temporal wasting, resting comfortably. CV: RRR no m/r/g Pulm: CTA B/l no wheezing rhonchi or rales Objective Labs Result Diagrams: 06/15/22 10:51 06/15/22 10:51 [facility] Medical History (Updated 06/13/22 @ 17:45 by Venu Vega DMD) Asthma Chronic back pain greater than 3 months duration Closed intertrochanteric fracture of left femur Depression Drug abuse, IV History of CVA (cerebrovascular accident) Poor dentition Surgical History History of hernia repair Family History Father Unknown family medical history Mother No problems noted. Grandmother Myocardial infarction Grandfather No problems noted. Social History household members: friend(s) Smoking Status: Current some day smoker alcohol intake: current Assessment & Plan Assessment & Plan narrative: 1. Dental pain, improved. Patient has multiple fractured teeth with just the root remaining in place.? Facial CT was done June 05 which revealed tiny residual roots of the lateral mandibular incisors and canines with adjacent periapical lucency.? No lytic or destructive lesion in the mandible.? No maxillary teeth present.? No acute soft tissue findings.? The periapical lucency could be consistent with dental abscess.? Started clindamycin on the evening of June 09.? No diarrhea.? Tolerating well thus far.? Continue hydrocodone and benzocaine for pain. -Dr. Vega oral surgeon assessed on 06/13 and did not think infection present, recommended tooth extraction as outpatient -Neva PRN 2. Generalized weakness Patient is chronically debilitated.? This admission he underwent 2 brain MRIs which for stroke, C-spine MRI with chronic pathology but no acute cord compression.? Remainder of workup was otherwise unremarkable.? He was initiated on Cymbalta 05/18 and gabapentin 05/21 with good results.? Patient's weakness is improving slowly with therapies. 3. Hyperlipidemia Continue atorvastatin. 4. Polysubstance dependence Currently in remission 5. Prior stroke with residual right-sided weakness Continue aspirin and atorvastatin 6. Microcytic anemia Thalassemia screen negative. 7. Hepatitis-C Positive hep C antibody and hep C RNA greater than 1,000,000.? Will need outpatient follow-up. Resolved issues: Altered mental status/metabolic encephalopathy Oral thrush Acute respiratory failure due to pneumonia Pneumonia Dispo Awaiting placement. Hoping for saturday. Medication discharge list sent today with prescriptions for his chronic opiates. Time Spent With Patient Critical Care time: I spent a total of [] minutes of critical care time on this patient's care today; this time is exclusive of procedural time. Quality VTE Deep Vein Thrombosis/Pulmonary Embolism Present on Admission: No
[2022-06-21 21:00] VITALS: BP 161/87; PULSE 76; RESP 14; TEMP 36.7; O2SAT 97
[2022-06-21] MEDS: ATORVASTATIN 20 MG TABLET 40 MG PO (21:13)
[2022-06-22] MEDS: HYDROCODONE/ACET 10/325 TABLET 1 TAB PO ×6 (01:18→20:52)
[2022-06-22] MEDS: PANTOPRAZOLE DR 40 MG TABLET PO ×2 (08:49→20:52)
[2022-06-22] MEDS: FOLIC ACID 1 MG TABLET PO (08:49)
[2022-06-22] MEDS: DOCUSATE 100 MG CAPSULE PO ×2 (08:49→20:52)
[2022-06-22] MEDS: MULTIVITAMIN 1 TABLET 1 TAB PO (08:49)
[2022-06-22] MEDS: SENNOSIDES 8.6 MG TABLET PO ×2 (08:49→20:52)
[2022-06-22] MEDS: GABAPENTIN 400 MG CAPSULE PO ×3 (08:49→20:52)
[2022-06-22] MEDS: ASPIRIN EC 81 MG TABLET PO (08:49)
[2022-06-22] MEDS: DULOXETINE 30 MG CAPSULE 60 MG PO (08:50)
[2022-06-22] MEDS: IBUPROFEN 400 MG TABLET 600 MG PO ×3 (08:50→20:54)
[2022-06-22] MEDS: ENOXAPARIN 40 MG/0.4 ML SYRINGE SUBCUT (08:51)
[2022-06-22] MEDS: LORazepam 0.5 MG TABLET PO ×2 (08:51→21:02)
[2022-06-22] MEDS: ORAJEL 1 EACH TOP ×3 (08:52→20:56)
[2022-06-22 09:30] VITALS: BP 125/75; PULSE 66; RESP 16; TEMP 36.1; O2SAT 96
--- NOTE | 2022-06-22 10:39 | CM.DPC ---
Addendum entered by Claudia Segal R.N. 06/22/22 14:21: Have attempted [facility], and confirmed with Tootie that they are currently full in that area. Called [facility], and they are closed due to full caseload. Spoke to Noel at [facility], and confirmed that they do not take [employer], in that area as well. [facility] is full as well. May need to have the adult family home attempt to order home health after he arrives, to see if an agency Left a message with Tootie at [facility] to see if patient can be put on a waiting list, since [facility] does take [employer]. Will await call back. Addendum entered by Claudia Segal R.N. 06/22/22 11:24: Received a call from [facility] in [place]. Stated, they are not contracted with [employer]. Asked him f he was aware of agencies in the [facility] that is contracted, and he stated, try [facility] or [facility]. It is now noted that locally, [facility] is the only agency that is contracted with [employer]. Called Angy at [facility] and asked her about [facility] in the [facility]. She will contact her cap and hat production supervisor and see if she can get information if they serve that area, or if there is another [facility] that does. Will await call back. Original Note: DCP Cont: Called [facility], and verified, they have received pharmacy agreement, and medications are processed. Reminded them that patient is discharging to [facility] on Saturday, so they can deliver. Called Kamala at [facility], and asked her if there was a way that they can accept patient this week-end, and she stated, she can't. Verified with her that patient can be accepted on Saturday, with bulk picker here at 0900. Have already set this up with Ambulance. Form completed, and will place original in chart. [facility] has been set up through [place] office, and have already faxed face to face, demographics, orders, and latest progress note. Their main number is: [phone]. Fax number is in DCP notes from yesterday. They will just need DC summary. P: DCP to continue to follow. Plan is for patient to be discharged on Saturday, will update patient as well. Claudia Segal RN/Arc Cutter
--- NOTE | 2022-06-22 11:26 | PT.IPTN ---
Current Diagnoses Depression, unspecified (05/01/22) Cerebral infarction, unspecified (05/01/22) Disorder of teeth and supporting structures, unspecified (05/01/22) Spinal stenosis, cervical region (05/01/22) Physical Therapy Treatment Note M2 PT-IP Current Condition Start: 05/07/22 09:18 Freq: NEEDED Status: Active Protocol: Document 06/18/22 11:28 SP (Rec: 06/18/22 12:30 SP [id number]) Physical Therapy Current Condition Current Condition Evaluation Date 05/07/22 Treatment Diagnosis metabolic encephalopathy; polysubstance withdrawal; impaired mobility Onset Date 04/30/22 M3 PT-IP Subjective Start: 05/07/22 09:18 Freq: NEEDED Status: Active Protocol: Document 06/22/22 10:48 KS (Rec: 06/22/22 12:03 KS [id number]) Subjective Physical Therapy Visit Type Type Treatment Note Visit Start Time 10:48 Visit Stop Time 11:26 Total Visit Minutes 38 Notes Partial co-treat w/ OT Number of TERRITORY MANAGER Visits 11 Physical Therapy Visit Comments Patient Comments Pt agreeable to mobilizing with therapy. M4 PT-IP Mobility and Gait Start: 05/07/22 09:18 Freq: NEEDED Status: Active Protocol: Document 06/22/22 10:48 KS (Rec: 06/22/22 12:03 KS [id number]) PT-Bed Mobility Assessment Rolling Type of Rolling Log Rolling,Roll to Right Level of Assist Contact Guard Assistance Supine to Sit Supine to Sit Minimal Assistance,1 Person Assistance,Head of Bed Elevated,Bedrails Scooting Scooting to Edge of Bed Contact Guard Assistance PT-Transfer Assessment Sit to and From Stand Sit to and from Stand Maximum Assistance,2 Person Assistance,Use of Upper Extremities Equipment Transfer Assistive Device Gait Belt,Front Wheeled Walker Orthotic/Prosthetic Devices or Brace: No Transfers Transfer Destination Chair Transfer Technique sit<>stand Transfer Ability Level of Assist Maximum Assistance,2 Person Assistance,Use of Upper Extremities Comments Mobility Comments Pt in bed upon arrival but agreeable to transfer to chair . CGA for logroll, Min A for sidelying<>sit w/ HOB elevated and bed rails. Pt able to scoot EOB CGA and cues. Sitting balance appears improved today while sitting EOB. Pt then performed squat pivot transfer from slightly raised bed to chair Max A x1. OT arrived for assistance following transfer. Pt practiced standing balance in front of mirror for visual feedback. He performed 3x sit< >stands w/ PFW w/ Max A x2 and cues for scooting EOC and spacing feet apart. He maintained his standing balance 2-3 minutes each time w/ Min to Mod A x2 depending on fatigue. Pt has difficulty w/ R knee extension and hip extension requiring frequent verbal and tactile cues. Pt fatigued and positioned in chair w/ all needs in reach. Gait Assessment Comments Gait Comments Did not assess. PT-Balance Assessment Sitting Balance and Reactions Static Sitting Balance Ability Fair Dynamic Sitting Balance Ability Poor Standing Balance and Reactions Static Standing Balance Ability Poor Dynamic Standing Balance Ability Poor Device Used PFW M5 PT-IP Objective Assessments Start: 05/07/22 09:18 Freq: NEEDED Status: Active Protocol: Document 05/07/22 11:05 AW (Rec: 05/07/22 13:30 AW [id number]) Orientation Orientation/Cognition Level of Alertness Lethargic Orientation Name,Month,Place Safety Awareness Decreased Safety Awareness Gross Range of Motion Lower Extremity ROM Assessment Within Functional Limits Strength Lower Extremity Strength Assessment Bilaterally Impaired Comments Strength Comments R grossly 3-/5. L grossly 3+/5 Coordination Assessment Gross Coordination Gross Coordination Impaired Assessment Finger to Nose Test Activity Impossible Foot Tapping Test Minimal Impairment Coordination Comments Pt limited by BUE weakness with UE coordination testing. Sensation Assessment Sensation Gross Sensation WNL Muscle Tone Muscle Tone WNL Yes M6 PT-IP Treatment Start: 05/07/22 09:18 Freq: NEEDED Status: Active Protocol: Document 06/22/22 10:48 KS (Rec: 06/22/22 12:03 KS [id number]) Physical Therapy Treatment Education Education Provided Safety M7 PT-IP Assessment and Plan Start: 05/07/22 09:18 Freq: NEEDED Status: Active Protocol: Document 06/22/22 10:48 KS (Rec: 06/22/22 12:03 KS [id number]) PT Summary Assessment and Plan Potential Rehabilitation Potential Fair Status of Condition at Evaluation Evolving Summary Impairments Pain,ROM,Strength,Balance, Coordination,Sensation,Tone, Cognition,Bed Mobility, Transfers,Gait,Activity Tolerance Progress Towards Goals Slow Progress due to Medical Issues,Slow Progress due to Activity Tolerance Assessment Summary Pt improved mobility today, requiring 1 person max A for squat pivot transfer to chair, however continues to require Max A x2 for sit<>Stand and Min-Mod A x2 to maintain standing balance w/ PFW for 2- 3 min intervals w/ frequent cues for upright posture. Still recommending squat pivot transfers w/ 2 PA for safety, nursing aware. Will continue to progress trunk control and transfers and balance. Continue to recommend SNF for progress strength and functional mobility and potential LTC placement when available. Goals Bed Mobility Goal Contact Guard Assistance Transfer Goal Moderate Assistance Gait Goal Moderate Assistance Gait Distance 100 Other Goals transfers and ambulation using PFW/hemiwalker Days to Meet Goals 10 Frequency of Treatment Frequency Of Treatment Once a Day Treatment Plan Physical Therapy Treatment Plan Bed Mobility Training,Transfer Training,Gait Training, Therapeutic Exercise,Balance Retraining,Discharge Planning, Hot or Cold Pack,Neuromuscular Re-ed,Coordination Retraining Other Recommendations and Next Treatment LE ex pre mobility, sitting Focus balance tolerance, trunk exercises, standing balance/ tolerance. Precautions Other Precautions seizure precautions; falls risk Recommendations To Nursing Amount of Assist Needed 2 Person Assist Discharge Recommendations PT Discharge Recommendations SNF Rehab,LTAC Transportation Needs at Discharge Wheelchair/Cabulance
--- NOTE | 2022-06-22 11:27 | OT.IP.TRT ---
Current Diagnoses Depression, unspecified (05/01/22) Cerebral infarction, unspecified (05/01/22) Disorder of teeth and supporting structures, unspecified (05/01/22) Spinal stenosis, cervical region (05/01/22) Occupational Therapy Treatment Note M2 OT-IP Current Condition Start: 05/07/22 12:13 Freq: Status: Active Protocol: Document 05/07/22 12:13 CGR (Rec: 05/07/22 12:37 CGR [id number]) Occupational Therapy Current Condition Current Condition Evaluation Date 05/07/22 Treatment Diagnosis generalized weakness, hx IV drug use, R CVA 2015 Diagnosis Onset Date 05/01/22 M3 OT- IP Subjective and Pain Start: 05/07/22 12:13 Freq: Status: Active Protocol: Document 06/22/22 11:42 [facility] (Rec: 06/22/22 11:51 [facility] [id number]) OT- Subjective Occupational Therapy Visit Type Type Treatment Note Visit Start Time 11:00 Visit Stop Time 11:27 Total Visit Minutes 27 Occupational Therapy Visit Comments Patient Comments Pt working with SUPERVISOR ROAD ADMINISTRATOR when OT came to assist. Patient/Caregiver Goals TO get better. OT Pain Assessment Pain When Pain Assessed At Rest Pain Present Pain Present Pain Reported Location teeth Intensity 8 Scale Used Numeric (0 - 10) M4 OT- IP ADL's Start: 05/07/22 12:13 Freq: Status: Active Protocol: Document 06/22/22 11:42 [facility] (Rec: 06/22/22 11:51 [facility] [id number]) OT ADL-Grooming Comments OT Grooming Comments Pt able to wash his face after set up of wash cloth. OT ADL-Oral Care General Eval Oral Care Ability Standby Assistance Areas of Assistance Brushing Teeth,Retrieving/Set- Up of Items Comments Oral Care Comments able to do while seated in the recliner M5 OT- IP IADL's Start: 05/07/22 12:13 Freq: Status: Active Protocol: Document 05/07/22 12:13 CGR (Rec: 05/07/22 12:37 R [id number]) OT-Instrumental Activities of Daily Living Deficits IADL Deficits Identified Deficits Home Safety Awareness Awareness of Need for Assistance at Home Decreased Awareness Ability to Problem Solve Emergency Unable to Problem Solve Situations Medication Management Medication Management Comments Concerns about pt's ability to perform consistently Money Management Money Management Comments Concerns about pt's ability to perform consistently Meal Preparation Meal Preparation Comments Concerns about pt's ability to perform consistently Inker And O[place]quer Inker And Opaquer Comments Concerns about pt's ability to perform consistently M6 OT- IP Functional Cognition Start: 05/07/22 12:13 Freq: Status: Active Protocol: Document 06/22/22 11:42 [facility] (Rec: 06/22/22 11:51 [facility] [id number]) Cognitive Factors Limiting Selfcare Function Cognitive Comments Cognitive Assessment Comments Pt cooperative. Pt's emotions tends to affect his physical abilities. M7 OT- IP Mobility and Balance Start: 05/07/22 12:13 Freq: Status: Active Protocol: Document 06/22/22 11:42 [facility] (Rec: 06/22/22 11:51 [facility] [id number]) OT-Transfer Assessment Sit to and From Stand Sit to and from Stand Maximum Assistance,2 Person Assistance Comments Mobility Comments MAX AX 2 to stand to FWW with right platform walker. Assist to get upright and place his RUE on the platform walker. OT- Balance Assessment Sitting Balance and Reactions Static Sitting Balance Ability Fair Dynamic Sitting Balance Ability Poor Standing Balance and Reactions Static Standing Balance Ability Poor Dynamic Standing Balance Ability Poor Comments Other Balance Tests/Deviations/Treatment MINAx2 to MODAx2 with standing : balance when upright on the FWW. M9 OT- IP Assessment and Plan Start: 05/07/22 12:13 Freq: Status: Active Protocol: Document 06/22/22 11:42 [facility] (Rec: 06/22/22 11:51 [facility] [id number]) OT Summary Assessment and Plan Potential Rehabilitation Potential Fair Analytic Complexity at Evaluation High Summary OT Impairments Pain,Strength,Balance, Coordination,Functional Cognition,Functional Mobility, Self-Feeding,Grooming,Dressing ,Toileting,Bathing,Toilet Transfers,Shower Transfers, Activity Tolerance Progress Towards Goals Slow Progress due to Pain,Slow Progress due to Medical Issues,Slow Progress due to Activity Tolerance Assessment Summary Pt realizing that he is going to adult living facility Saturday and able to talk to pt during standing balance and during OT/SUPERVISOR ROAD ADMINISTRATOR session. Pt's pain and emotions tend to affect his abilities with ADL's and mobility needs. Goals Self-Feeding Goal Standby Assistance Grooming Goal Minimal Assistance Dressing Goal Moderate Assistance Toileting Goal Moderate Assistance Bathing Goal Moderate Assistance Toilet Transfer Goal Moderate Assistance Shower Transfer Goal Moderate Assistance Days to Meet Goals 40 Frequency of Treatment Frequency Of Treatment Once a Day Treatment Plan OT Treatment Plan ADL Training,Functional Cognition Training,Functional Mobility,Neuromuscular Re- education,Therapeutic Exercises,Patient/Family Education,Discharge Planning Discharge Recommendations OT Discharge Recommendations Home Health,LTAC Transportation Needs at Discharge Stretcher/Ambulance
--- NOTE | 2022-06-22 15:33 | P.PN_ITS ---
Subjective Subjective Date Patient Seen: 06/22/22 Time Patient Seen: 15:35 Interval history: No complaints today. May have accepting facility on Saturday per case management. Exam Vital Signs (past 8 hours): - 06/22/22 09:30 Temperature 96.9 F L Pulse Rate 66 Respiratory Rate 16 Blood Pressure 125/75 Pulse Oximetry 96 Oxygen Flow Rate 0 Oxygen Delivery Method Room Air Oxygen Flow Rate 0 Narrative Exam Narrative: GEN: Middle-aged male, very thin, temporal wasting, resting comfortably. CV: RRR no m/r/g Pulm: CTA B/l no wheezing rhonchi or rales Objective Labs Result Diagrams: 06/15/22 10:51 06/15/22 10:51 [facility] Medical History (Updated 06/13/22 @ 17:45 by Venu Vega DMD) Asthma Chronic back pain greater than 3 months duration Closed intertrochanteric fracture of left femur Depression Drug abuse, IV History of CVA (cerebrovascular accident) Poor dentition Surgical History History of hernia repair Family History Father Unknown family medical history Mother No problems noted. Grandmother Myocardial infarction Grandfather No problems noted. Social History household members: friend(s) Smoking Status: Current some day smoker alcohol intake: current Assessment & Plan Assessment & Plan narrative: 1. Dental pain, improved. Patient has multiple fractured teeth with just the root remaining in place.? Facial CT was done June 05 which revealed tiny residual roots of the lateral mandibular incisors and canines with adjacent periapical lucency.? No lytic or destructive lesion in the mandible.? No maxillary teeth present.? No acute soft tissue findings.? The periapical lucency could be consistent with dental abscess.? Started clindamycin on the evening of June 09.? No diarrhea.? Tolerating well thus far.? Continue hydrocodone and benzocaine for pain. -Dr. Vega oral surgeon assessed on 06/13 and did not think infection present, recommended tooth extraction as outpatient -Neva PRN 2. Generalized weakness Patient is chronically debilitated.? This admission he underwent 2 brain MRIs which for stroke, C-spine MRI with chronic pathology but no acute cord compression.? Remainder of workup was otherwise unremarkable.? He was initiated on Cymbalta 05/18 and gabapentin 05/21 with good results.? Patient's weakness is improving slowly with therapies. 3. Hyperlipidemia Continue atorvastatin. 4. Polysubstance dependence Currently in remission 5. Prior stroke with residual right-sided weakness Continue aspirin and atorvastatin 6. Microcytic anemia Thalassemia screen negative. 7. Hepatitis-C Positive hep C antibody and hep C RNA greater than 1,000,000.? Will need outpa tient follow-up. Resolved issues: Altered mental status/metabolic encephalopathy Oral thrush Acute respiratory failure due to pneumonia Pneumonia Dispo Awaiting placement. Hoping for saturday. Medication discharge list sent today with prescriptions for his chronic opiates. Time Spent With Patient Critical Care time: I spent a total of [] minutes of critical care time on this patient's care today; this time is exclusive of procedural time. Quality VTE Deep Vein Thrombosis/Pulmonary Embolism Present on Admission: No
--- NOTE | 2022-06-22 15:58 | CM.DPC ---
DCP Cont: [facility] called and needed strengths on Orajel, Spiriva, and Advair. Was able to confirm does by Dr. Servin, written on med sheets and faxed over. Confirmed that they received fax. P: DCP to continue to follow. Plan is pickling solution maker Saturday at 0900, home health agencies still pending, but have faxed several agencies. Have a call out to Tootie at [facility] to see if he can be put on a waiting list in his area, since they serve [place]. Claudia Segal, RN/Core Setter
[2022-06-22 19:35] VITALS: BP 135/72; PULSE 70; RESP 16; TEMP 35.7; O2SAT 93
[2022-06-22] MEDS: ATORVASTATIN 20 MG TABLET 40 MG PO (20:51)
[2022-06-23] MEDS: HYDROCODONE/ACET 10/325 TABLET 1 TAB PO ×7 (00:39→21:55)
[2022-06-23] MEDS: ORAJEL 1 EACH TOP ×5 (00:40→22:43)
[2022-06-23 08:55] VITALS: BP 136/72; PULSE 74; RESP 18; TEMP 36.3; O2SAT 95
[2022-06-23] MEDS: LORazepam 0.5 MG TABLET PO ×2 (09:30→21:03)
[2022-06-23] MEDS: DOCUSATE 100 MG CAPSULE PO ×2 (09:34→22:02)
[2022-06-23] MEDS: DULOXETINE 30 MG CAPSULE 60 MG PO (09:34)
[2022-06-23] MEDS: PANTOPRAZOLE DR 40 MG TABLET PO ×2 (09:34→20:56)
[2022-06-23] MEDS: NICOTINE 14 PATCH 14 MG TOP (09:34)
[2022-06-23] MEDS: ENOXAPARIN 40 MG/0.4 ML SYRINGE SUBCUT (09:34)
[2022-06-23] MEDS: ASPIRIN EC 81 MG TABLET PO (09:35)
[2022-06-23] MEDS: FOLIC ACID 1 MG TABLET PO (09:35)
[2022-06-23] MEDS: IBUPROFEN 400 MG TABLET 600 MG PO ×3 (09:35→20:55)
[2022-06-23] MEDS: SENNOSIDES 8.6 MG TABLET PO ×2 (09:35→20:56)
[2022-06-23] MEDS: GABAPENTIN 400 MG CAPSULE PO ×3 (09:35→20:54)
[2022-06-23] MEDS: MULTIVITAMIN 1 TABLET 1 TAB PO (09:35)
[2022-06-23] MEDS: LORazepam 1 MG TABLET 0.5 MG PO (09:39)
--- NOTE | 2022-06-23 09:47 | OT.IP.TRT ---
Current Diagnoses Depression, unspecified (05/01/22) Cerebral infarction, unspecified (05/01/22) Disorder of teeth and supporting structures, unspecified (05/01/22) Spinal stenosis, cervical region (05/01/22) Occupational Therapy Treatment Note M2 OT-IP Current Condition Start: 05/07/22 12:13 Freq: Status: Active Protocol: Document 05/07/22 12:13 CGR (Rec: 05/07/22 12:37 CGR [id number]) Occupational Therapy Current Condition Current Condition Evaluation Date 05/07/22 Treatment Diagnosis generalized weakness, hx IV drug use, R CVA 2015 Diagnosis Onset Date 05/01/22 M3 OT- IP Subjective and Pain Start: 05/07/22 12:13 Freq: Status: Active Protocol: Document 06/23/22 11:50 [facility] (Rec: 06/23/22 12:00 [facility] [id number]) OT- Subjective Occupational Therapy Visit Type Type Treatment Note Visit Start Time 09:47 Visit Stop Time 10:38 Total Visit Minutes 39 Occupational Therapy Visit Comments Patient Comments Pt requesting to shower. Patient/Caregiver Goals TO get better. OT Pain Assessment Pain When Pain Assessed At Rest Pain Present Pain Present Pain Reported Location Neck Intensity 8 Scale Used Numeric (0 - 10) M4 OT- IP ADL's Start: 05/07/22 12:13 Freq: Status: Active Protocol: Document 06/23/22 11:50 [facility] (Rec: 06/23/22 12:00 [facility] [id number]) OT [id number] Comments OT Self-Feeding Comments NOt at meal time. OT ADL-Grooming Comments OT Grooming Comments Pt able to wash his face after set up of wash cloth. OT ADL-Oral Care Comments Oral Care Comments Not performed. 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 Pt MODA for gown management. OT ADL-Toileting General Evaluation Toileting Ability Maximum Assistance,Total Assistance Areas Needing Assistance Manage Clothing,Perform Perineal Hygiene Comments OT Toileting Comments Nursing aid assist for brief and hygiene needs while therapist able to stand pt with MAX AX 1. OT ADL-Bathing Bathing Type Bathing Type Shower General Evaluation Bathing Ability Maximal Assistance Areas Needing Assistance Wash/Dry Upper Body,Wash/Dry Back,Wash/Dry Perineal Area, Wash/Dry Lower Extremities Devices Bathing Equipment Hand Held Shower Sprayer,Grab Bars Comments OT Bathing Comments Pt use of his 4ww for shower. Pt able to assist to wash his right arm,chest, face and upper legs. M5 OT- IP IADL's Start: 05/07/22 12:13 Freq: Status: Active Protocol: Document 05/07/22 12:13 CGR (Rec: 05/07/22 12:37 CGR [id number]) OT-Instrumental Activities of Daily Living Deficits IADL Deficits Identified Deficits Home Safety Awareness Awareness of Need for Assistance at Home Decreased Awareness Ability to Problem Solve Emergency Unable to Problem Solve Situations Medication Management Medication Management Comments Concerns about pt's ability to perform consistently Money Management Money Management Comments Concerns about pt's ability to perform consistently Meal Preparation Meal Preparation Comments Concerns about pt's ability to perform consistently Photograph Tinter Photograph Tinter Comments Concerns about pt's ability to perform consistently M6 OT- IP Functional Cognition Start: 05/07/22 12:13 Freq: Status: Active Protocol: Document 06/23/22 11:50 [facility] (Rec: 06/23/22 12:00 [facility] [id number]) Cognitive Factors Limiting Selfcare Function Cognitive Comments Cognitive Assessment Comments Pt cooperative and pleasant and able to follow commands for ADl and IADl needs. M7 OT- IP Mobility and Balance Start: 05/07/22 12:13 Freq: Status: Active Protocol: Document 06/23/22 11:50 [facility] (Rec: 06/23/22 12:00 [facility] [id number]) OT-Transfer Assessment Sit to and From Stand Sit to and from Stand Maximum Assistance,1 Person Assistance Transfers Transfer Ability Contact Guard Assistance, Moderate Assistance,Maximum Assistance,1 Person Assistance ,2 Person Assistance Technique Transfer Destination Bed,Chair,Shower Stall,Toilet Transfer Technique Stand Step Pivot Devices Transfer Assistive Devices None,Gait Belt Comments Mobility Comments Pt needing from MAX A x1 and CGA of another for stand pivot transfer to the left to 4ww, transfer to toilet and back to FWW to the right MAX A x1 and MODA X1. MAX AX 2 back to the recliner as pt tiring and legs crossing up on him. OT- Balance Assessment Sitting Balance and Reactions Static Sitting Balance Ability Fair Dynamic Sitting Balance Ability Poor Standing Balance and Reactions Static Standing Balance Ability Poor Dynamic Standing Balance Ability Poor . M9 OT- IP Assessment and Plan Start: 05/07/22 12:13 Freq: Status: Active Protocol: Document 06/23/22 11:50 [facility] (Rec: 06/23/22 12:00 [facility] [id number]) OT Summary Assessment and Plan Potential Rehabilitation Potential Fair Analytic Complexity at Evaluation High Summary OT Impairments Pain,Strength,Balance, Coordination,Functional Cognition,Functional Mobility, Self-Feeding,Grooming,Dressing ,Toileting,Bathing,Toilet Transfers,Shower Transfers, Activity Tolerance Progress Towards Goals Slow Progress due to Pain,Slow Progress due to Medical Issues,Slow Progress due to Activity Tolerance Assessment Summary Pt able to tolerate multiple transfers from the bed to the toilet, shower and then to the recliner today. Pt needing two person assist for toileting needs when use of toilet, but able to be 1 person if toileting from supine in bed. Pt looking to go to an adult family home Saturday. Home health would be beneficial for pt to have. Goals Self-Feeding Goal Standby Assistance Grooming Goal Minimal Assistance Dressing Goal Moderate Assistance Toileting Goal Moderate Assistance Bathing Goal Moderate Assistance Toilet Transfer Goal Moderate Assistance Shower Transfer Goal Moderate Assistance Days to Meet Goals 40 Frequency of Treatment Frequency Of Treatment Once a Day Treatment Plan OT Treatment Plan ADL Training,Functional Cognition Training,Functional Mobility,Neuromuscular Re- education,Therapeutic Exercises,Patient/Family Education,Discharge Planning Discharge Recommendations OT Discharge Recommendations Home Health,LTAC Transportation Needs at Discharge Stretcher/Ambulance
[2022-06-23] MEDS: fentaNYL 12 MCG/PATCH TOP (10:30)
--- NOTE | 2022-06-23 10:43 | CM.DPC ---
DCP Cont: DCP spoke with [facility] today and confirmed that pt is on the waitlist. They stated that they are out through the middle of next week in [place]. GISSELLE stated that she faxed over referral this morning with orders and F2F. DCP to fax over d/c summary on Saturday when pt discharge. P: Pt to discharge to [facility] on Saturday @ 0900 via BLS transport. COVID swab will be ordered for tomorrow. Roya More RN/AUTUMNP
--- NOTE | 2022-06-23 11:30 | PT.IPTN ---
Current Diagnoses Depression, unspecified (05/01/22) Cerebral infarction, unspecified (05/01/22) Disorder of teeth and supporting structures, unspecified (05/01/22) Spinal stenosis, cervical region (05/01/22) Physical Therapy Treatment Note M2 PT-IP Current Condition Start: 05/07/22 09:18 Freq: NEEDED Status: Active Protocol: Document 06/18/22 11:28 SP (Rec: 06/18/22 12:30 SP [id number]) Physical Therapy Current Condition Current Condition Evaluation Date 05/07/22 Treatment Diagnosis metabolic encephalopathy; polysubstance withdrawal; impaired mobility Onset Date 04/30/22 M3 PT-IP Subjective Start: 05/07/22 09:18 Freq: NEEDED Status: Active Protocol: Document 06/23/22 11:30 AB (Rec: 06/23/22 13:27 AB [id number]) Subjective Physical Therapy Visit Type Type Treatment Note Visit Start Time 11:30 Visit Stop Time 14:10 Total Visit Minutes 75 Notes split visits: 1130 to 1235 and 1400 to 1410 Number of DISCOVERY MANAGER Visits 0 Physical Therapy Visit Comments Patient Comments agreeable to do PT M4 PT-IP Mobility and Gait Start: 05/07/22 09:18 Freq: NEEDED Status: Active Protocol: Document 06/23/22 11:30 AB (Rec: 06/23/22 13:27 AB [id number]) PT-Transfer Assessment Sit to and From Stand Sit to and from Stand Maximum Assistance,2 Person Assistance,Use of Upper Extremities Equipment Transfer Assistive Device Gait Belt,Platform Walker Orthotic/Prosthetic Devices or Brace: No Transfers Transfer Destination Bed,Chair Transfer Technique Stand Step Pivot Transfer Ability Level of Assist Maximum Assistance,2 Person Assistance,Use of Upper Extremities Comments Mobility Comments pt sitting on chair and agreed to do PT. completed sit to stand max A x 2 and max cues. required max A for scooting to edge of chair. pt can be impulsive. emphasis on techniques and trunk control during scooting. able to standing with PFW mod to max A for standing balance and emphasis on posture, trunk control and R quads activation . cued for righting reaction as trunk deviated away from the center. repeated x 2. transfer training using PFW completed chair<> bed max A x 2 and max cues with emphasis on standing balance, trunk control, RLE control and placement. completed ambulation training using PFW max A x 2 and max cues ~ 8 ft. presents with decrease RLE control with pt using trunk muscles to elevate and move RLE forward and indirectly using trunk control due to this. assisted and cued pt for better trunk trunk control, weight shifting and RLE hip/ knee flexor activation to move move RLE forward. pt also tends to have RLE cross midling and cues to increase step width and moving RLE to the side with stepping. positioned pt on chair. agreed to do exercises. completed isometric trunk exercises with manual resistance. able to hold trunk forward without UE support for ~ 5 sec x 5 reps. initially unable to hold but able to after a few repetions. also completed lateral trunk isometric exercises 5 sec h ole x 5 reps. completed glute sets x 5 reps x 5 sec hold. completed R hip flexion with emphasis on decreasing trunk compensation to elevate R LE. completed hip abduction isometrics against manual resistance x 5 sec hold x 5 reps. R LAQs x 5 reps x 5 sec hold. whole RLE flexion with emphasis on sustaining muscle contraction up to end of range and extension against manual resistance. completed x 5 reps. position pt on the chair. call light and table placed within reach. assessed use of hemiwalker. completed sit to stand from chair max A x 2 and max cues. completed marching in place max A x 2 and max cues. pt sat back to rest. completed sit to stand again max A x 2 and max cues and ambulated ~ 4 ft using hemiwalker max A x 2 and max cues. pt with tendency to pull walker up on LUE with flexion of RLE. positioned pt back to chair. call light and table placed within reach. Gait Assessment Gait Gait Assistance Required: Maximum Assistance,2 Person Assist Distance (Feet) 8 Able to Maintain Weight Bearing Status Yes During Gait Assistive Devices Assistive Device Gait Belt,Platform Walker,Harvey Walker Gait Deviations General Gait Pattern Ataxic,Decreased Stride Length ,Decreased Feet Clearance, Flexed Trunk,Lateral Trunk Lean,Narrow Based Gait,Step-to Gait Factors Limiting Gait Function Factors Limiting Gait Function Abnormal Tonal Influences, Decreased Activity Tolerance, Decreased Strength,Difficulty Following Directions, Incoordination,Limited Range of Motion,Poor Balance,Poor Safety Awareness M5 PT-IP Objective Assessments Start: 05/07/22 09:18 Freq: NEEDED Status: Active Protocol: Document 05/07/22 11:05 AW (Rec: 05/07/22 13:30 AW [id number]) Orientation Orientation/Cognition Level of Alertness Lethargic Orientation Name,Month,Place Safety Awareness Decreased Safety Awareness Gross Range of Motion Lower Extremity ROM Assessment Within Functional Limits Strength Lower Extremity Strength Assessment Bilaterally Impaired Comments Strength Comments R grossly 3-/5. L grossly 3+/5 Coordination Assessment Gross Coordination Gross Coordination Impaired Assessment Finger to Nose Test Activity Impossible Foot Tapping Test Minimal Impairment Coordination Comments Pt limited by BUE weakness with UE coordination testing. Sensation Assessment Sensation Gross Sensation WNL Muscle Tone Muscle Tone WNL Yes M6 PT-IP Treatment Start: 05/07/22 09:18 Freq: NEEDED Status: Active Protocol: Document 06/23/22 11:30 AB (Rec: 06/23/22 13:27 AB [id number]) Physical Therapy Treatment Exercises Exercises Gluteal Sets Education Education Provided Safety Other Treatments Other Treatment Performed refer to mobility section for details M7 PT-IP Assessment and Plan Start: 05/07/22 09:18 Freq: NEEDED Status: Active Protocol: Document 06/23/22 11:30 AB (Rec: 06/23/22 13:27 AB [id number]) PT Summary Assessment and Plan Potential Rehabilitation Potential Fair Summary Impairments Pain,ROM,Strength,Balance, Coordination,Sensation,Tone, Cognition,Bed Mobility, Transfers,Gait,Activity Tolerance Progress Towards Goals Slow Progress due to Medical Issues,Slow Progress - Other Assessment Summary pt continue to require max A x 2 for mobility. pt continue to have decrease trunk control and R sided weakness but improving slowly. Pt will benefit from SNF vs acute rehab to improve strength and functional mobility. Goals Bed Mobility Goal Contact Guard Assistance Transfer Goal Moderate Assistance Gait Goal Moderate Assistance Gait Distance 100 Other Goals transfers and ambulation using PFW/hemiwalker Days to Meet Goals 10 Frequency of Treatment Frequency Of Treatment Once a Day Treatment Plan Physical Therapy Treatment Plan Bed Mobility Training,Transfer Training,Gait Training, Therapeutic Exercise,Balance Retraining,Discharge Planning, Hot or Cold Pack,Neuromuscular Re-ed,Coordination Retraining Other Recommendations and Next Treatment LE ex pre mobility, sitting Focus balance tolerance, trunk exercises, standing balance/ tolerance. Precautions Other Precautions seizure precautions; falls risk Recommendations To Nursing Amount of Assist Needed 2 Person Assist Discharge Recommendations PT Discharge Recommendations SNF Rehab,Acute Rehab Transportation Needs at Discharge Wheelchair/Cabulance
--- NOTE | 2022-06-23 11:30 | PT.IPTN ---
Current Diagnoses Depression, unspecified (05/01/22) Cerebral infarction, unspecified (05/01/22) Disorder of teeth and supporting structures, unspecified (05/01/22) Spinal stenosis, cervical region (05/01/22) Physical Therapy Treatment Note M2 PT-IP Current Condition Start: 05/07/22 09:18 Freq: NEEDED Status: Active Protocol: Document 06/18/22 11:28 SP (Rec: 06/18/22 12:30 SP [id number]) Physical Therapy Current Condition Current Condition Evaluation Date 05/07/22 Treatment Diagnosis metabolic encephalopathy; polysubstance withdrawal; impaired mobility Onset Date 04/30/22 M3 PT-IP Subjective Start: 05/07/22 09:18 Freq: NEEDED Status: Active Protocol: Document 06/23/22 11:30 AB (Rec: 06/23/22 13:27 AB [email or web address]) Subjective Physical Therapy Visit Type Type Treatment Note Visit Start Time 11:30 Visit Stop Time 12:35 Total Visit Minutes 65 Number of PER DIEM PHYSICAL THERAPIST ASSISTANT Visits 0 Physical Therapy Visit Comments Patient Comments agreeable to do PT M4 PT-IP Mobility and Gait Start: 05/07/22 09:18 Freq: NEEDED Status: Active Protocol: Document 06/23/22 11:30 AB (Rec: 06/23/22 13:27 AB [id number]) PT-Transfer Assessment Sit to and From Stand Sit to and from Stand Maximum Assistance,2 Person Assistance,Use of Upper Extremities Equipment Transfer Assistive Device Gait Belt,Platform Walker Orthotic/Prosthetic Devices or Brace: No Transfers Transfer Destination Bed,Chair Transfer Technique Stand Step Pivot Transfer Ability Level of Assist Maximum Assistance,2 Person Assistance,Use of Upper Extremities Comments Mobility Comments pt sitting on chair and agreed to do PT. completed sit to stand max A x 2 and max cues. required max A for scooting to edge of chair. pt can be impulsive. emphasis on techniques and trunk control during scooting. able to standing with PFW mod to max A for standing balance and emphasis on posture, trunk control and R quads activation . cued for righting reaction as trunk deviated away from the center. repeated x 2. transfer training using PFW completed chair<> bed max A x 2 and max cues with emphasis on standing balance, trunk control, RLE control and placement. completed ambulation training using PFW max A x 2 and max cues ~ 8 ft. presents with decrease RLE control with pt using trunk muscles to elevate and move RLE forward and indirectly using trunk control due to this. assisted and cued pt for better trunk trunk control, weight shifting and RLE hip/ knee flexor activation to move move RLE forward. pt also tends to have RLE cross midling and cues to increase step width and moving RLE to the side with stepping. positioned pt on chair. agreed to do exercises. completed isometric trunk exercises with manual resistance. able to hold trunk forward without UE support for ~ 5 sec x 5 reps. initially unable to hold but able to after a few repetions. also completed lateral trunk isometric exercises 5 sec h ole x 5 reps. completed glute sets x 5 reps x 5 sec hold. completed R hip flexion with emphasis on decreasing trunk compensation to elevate R LE. completed hip abduction isometrics against manual resistance x 5 sec hold x 5 reps. R LAQs x 5 reps x 5 sec hold. whole RLE flexion with emphasis on sustaining muscle contraction up to end of range and extension against manual resistance. completed x 5 reps. position pt on the chair. call light and table placed within reach. Gait Assessment Gait Gait Assistance Required: Maximum Assistance,2 Person Assist Distance (Feet) 8 Able to Maintain Weight Bearing Status Yes During Gait Assistive Devices Assistive Device Gait Belt,Platform Walker Gait Deviations General Gait Pattern Ataxic,Decreased Stride Length ,Decreased Feet Clearance, Flexed Trunk,Lateral Trunk Lean,Narrow Based Gait,Step-to Gait Factors Limiting Gait Function Factors Limiting Gait Function Abnormal Tonal Influences, Decreased Activity Tolerance, Decreased Strength,Difficulty Following Directions, Incoordination,Limited Range of Motion,Poor Balance,Poor Safety Awareness M5 PT-IP Objective Assessments Start: 05/07/22 09:18 Freq: NEEDED Status: Active Protocol: Document 05/07/22 11:05 AW (Rec: 05/07/22 13:30 AW [id number]) Orientation Orientation/Cognition Level of Alertness Lethargic Orientation Name,Month,Place Safety Awareness Decreased Safety Awareness Gross Range of Motion Lower Extremity ROM Assessment Within Functional Limits Strength Lower Extremity Strength Assessment Bilaterally Impaired Comments Strength Comments R grossly 3-/5. L grossly 3+/5 Coordination Assessment Gross Coordination Gross Coordination Impaired Assessment Finger to Nose Test Activity Impossible Foot Tapping Test Minimal Impairment Coordination Comments Pt limited by BUE weakness with UE coordination testing. Sensation Assessment Sensation Gross Sensation WNL Muscle Tone Muscle Tone WNL Yes M6 PT-IP Treatment Start: 05/07/22 09:18 Freq: NEEDED Status: Active Protocol: Document 06/23/22 11:30 AB (Rec: 06/23/22 13:27 AB [email or web address]) Physical Therapy Treatment Exercises Exercises Gluteal Sets Education Education Provided Safety Other Treatments Other Treatment Performed refer to mobility section for details M7 PT-IP Assessment and Plan Start: 05/07/22 09:18 Freq: NEEDED Status: Active Protocol: Document 06/23/22 11:30 AB (Rec: 06/23/22 13:27 AB [email or web address]) PT Summary Assessment and Plan Potential Rehabilitation Potential Fair Summary Impairments Pain,ROM,Strength,Balance, Coordination,Sensation,Tone, Cognition,Bed Mobility, Transfers,Gait,Activity Tolerance Progress Towards Goals Slow Progress due to Medical Issues,Slow Progress - Other Assessment Summary pt continue to require max A x 2 for mobility. pt continue to have decrease trunk control and R sided weakness but improving slowly. Pt will benefit from SNF vs acute rehab to improve strength and functional mobility. Goals Bed Mobility Goal Contact Guard Assistance Transfer Goal Moderate Assistance Gait Goal Moderate Assistance Gait Distance 100 Other Goals transfers and ambulation using PFW/hemiwalker Days to Meet Goals 10 Frequency of Treatment Frequency Of Treatment Once a Day Treatment Plan Physical Therapy Treatment Plan Bed Mobility Training,Transfer Training,Gait Training, Therapeutic Exercise,Balance Retraining,Discharge Planning, Hot or Cold Pack,Neuromuscular Re-ed,Coordination Retraining Other Recommendations and Next Treatment LE ex pre mobility, sitting Focus balance tolerance, trunk exercises, standing balance/ tolerance. Precautions Other Precautions seizure precautions; falls risk Recommendations To Nursing Amount of Assist Needed 2 Person Assist Discharge Recommendations PT Discharge Recommendations SNF Rehab,Acute Rehab Transportation Needs at Discharge Wheelchair/Cabulance
--- NOTE | 2022-06-23 13:11 | PM.PN.1 ---
Subjective Subjective Date Patient Seen: 06/23/22 Interval history: 62-year-old gentleman with underlying substance dependence, stroke with right-sided weakness, depression, chronic back pain, and asthma who is presently hospital day number 53 initially admitted with concern for worsening stroke symptoms and altered mental status.? He has had a prolonged hospitalization related to his overall weakness and delays in getting him placed.? On June 09, he began having worsening symptoms of dental pain. He was treated with oral clindamycin. He was evaluated by local dentist who recommended outpatient follow-up. Is now eating and drinking well. He uses oral benzocaine as needed. No new complaints. Exam Vital Signs (past 8 hours): - 06/23/22 08:55 Temperature 97.4 F L Pulse Rate 74 Respiratory Rate 18 Blood Pressure 136/72 Pulse Oximetry 95 Oxygen Flow Rate 0 Oxygen Delivery Method Room Air Oxygen Flow Rate 0 Narrative Exam Narrative: GEN:? Middle-aged male, Alert and oriented x 3, chronically ill appearing, NAD HEENT:NC, asymmetric CHEST: Respiratory excursions symmetric, CTAB CV: RRR, no M/R/G ABD: Soft, NT/ND, BT present in all 4 quadrants, no organomegaly or masses EXTR: warm, well perfused, no C/C/E, right upper extremity remains weak SKIN: warm and dry, no rash NEURO: Alert and oriented x 3, persistent right upper extremity weakness Objective Labs Result Diagrams: 06/15/22 10:51 06/15/22 10:51 [facility] Medical History (Updated 06/13/22 @ 17:45 by Venu Vega DMD) Asthma Chronic back pain greater than 3 months duration Closed intertrochanteric fracture of left femur Depression Drug abuse, IV History of CVA (cerebrovascular accident) Poor dentition Surgical History History of hernia repair Family History Father Unknown family medical history Mother No problems noted. Grandmother Myocardial infarction Grandfather No problems noted. Social History household members: friend(s) Smoking Status: Current some day smoker alcohol intake: current Assessment & Plan Assessment & Plan narrative: 1. Dental pain Patient has multiple fractured teeth with just the root remaining in place.? Facial CT was done June 05 which revealed tiny residual roots of the lateral mandibular incisors and canines with adjacent periapical lucency.? No lytic or destructive lesion in the mandible.? No maxillary teeth present.? No acute soft tissue findings.? The periapical lucency could be consistent with dental abscess.? Received a course of clindamycin. Will need outpatient follow-up. 2. Generalized weakness Patient is chronically debilitated.? This admission he underwent 2 brain MRIs which for stroke, C-spine MRI with chronic pathology but no acute cord compression.? Remainder of workup was otherwise unremarkable.? He was initiated on Cymbalta 05/18 and gabapentin 05/21 with good results.? Continues to work with therapies. 3. . Hyperlipidemia Continue atorvastatin. 4. Polysubstance dependence Currently in remission 5. Prior stroke with residual right-sided weakness Continues aspirin and atorvastatin. No evidence of new stroke this admission. 6. Microcytic anemia Thalassemia screen was negative this admission. No evidence of iron deficiency. 7. Hepatitis-C Positive hep C antibody and hep C RNA greater than 1,000,000.? Will need outpatient follow-up and consideration treatment. Resolved issues: Altered mental status/metabolic encephalopathy Oral thrush Acute respiratory failure due to pneumonia Pneumonia Time Spent With Patient Critical Care time: I spent a total of [] minutes of critical care time on this patient's care today; this time is exclusive of procedural time. Quality VTE Deep Vein Thrombosis/Pulmonary Embolism Present on Admission: No
[2022-06-23 19:45] VITALS: BP 129/75; PULSE 72; RESP 15; TEMP 36.7; O2SAT 94
[2022-06-23] MEDS: ATORVASTATIN 20 MG TABLET 40 MG PO (20:56)
[2022-06-24] MEDS: HYDROCODONE/ACET 10/325 TABLET 1 TAB PO ×8 (01:04→23:11)
[2022-06-24] MEDS: ORAJEL 1 EACH TOP ×5 (04:20→20:22)
[2022-06-24] MEDS: NICOTINE 14 PATCH 14 MG TOP (07:57)
[2022-06-24] MEDS: SENNOSIDES 8.6 MG TABLET PO ×2 (07:58→20:21)
[2022-06-24] MEDS: ENOXAPARIN 40 MG/0.4 ML SYRINGE SUBCUT (07:58)
[2022-06-24] MEDS: DOCUSATE 100 MG CAPSULE PO ×2 (07:58→20:20)
[2022-06-24] MEDS: MULTIVITAMIN 1 TABLET 1 TAB PO (07:58)
[2022-06-24] MEDS: PANTOPRAZOLE DR 40 MG TABLET PO ×2 (07:59→20:21)
[2022-06-24] MEDS: FOLIC ACID 1 MG TABLET PO (07:59)
[2022-06-24] MEDS: IBUPROFEN 400 MG TABLET 600 MG PO ×3 (07:59→20:20)
[2022-06-24] MEDS: ASPIRIN EC 81 MG TABLET PO (07:59)
[2022-06-24] MEDS: GABAPENTIN 400 MG CAPSULE PO ×3 (08:00→20:20)
[2022-06-24] MEDS: DULOXETINE 30 MG CAPSULE 60 MG PO (08:00)
[2022-06-24] MEDS: LORazepam 0.5 MG TABLET PO ×2 (08:30→20:39)
[2022-06-24 09:05] LABS: COVID19 -Nasal RAPID Negative (Negative)
[2022-06-24 09:41] LABS: Adenovirus Not Detected (Not Detect); B. parapertussis Not Detected (Not Detecte); Bordetella pertussis Not Detected (Not Detecte); Chlamydophila pneumoniae Not Detected (Not Detect); Coronavirus 229E Not Detected (Not Detect); Coronavirus HKU1 Not Detected (Not Detect); Coronavirus NL 63 Not Detected (Not Detect); Coronavirus OC43 Not Detected (Not Detect); Human Metapneumovirus Not Detected (Not Detect); Human Rhinovirus/Enterovirus Not Detected (Not Detect); Influenza A Not Detected (Not Detect); Influenza B Not Detected (Not Detect); Mycoplasma pneumoniae Not Detected (Not Detect); Parainfluenza Virus 1 Not Detected (Not Detect); Parainfluenza Virus 2 Not Detected (Not Detect); Parainfluenza Virus 3 Not Detected (Not Detect); Parainfluenza Virus 4 Not Detected (Not Detect); Respiratory Syncytial Virus Not Detected (Not Detect); SARS- CoV-2 Not Detected (Not Detecte)
[2022-06-24 11:00] VITALS: BP 124/66; PULSE 75; RESP 16; TEMP 36; O2SAT 93
[2022-06-24] MEDS: ALBUTEROL 2.5 MG/3 ML NEB (ADULT) INH (18:03)
[2022-06-24 18:14] VITALS: PULSE 69; RESP 18; O2SAT 96
--- NOTE | 2022-06-24 18:16 | PM.PN.1 ---
Subjective Subjective Date Patient Seen: 06/24/22 Interval history: 62-year-old gentleman with underlying substance dependence, stroke with right-sided weakness, depression, chronic back pain, and asthma who is presently hospital day number 54 initially admitted with concern for worsening stroke symptoms and altered mental status.? He has had a prolonged hospitalization related to his overall weakness and delays in getting him placed.? On June 09, he began having worsening symptoms of dental pain.? He was treated with oral clindamycin.? He was evaluated by local dentist who recommended outpatient follow-up.? Is now eating and drinking well.? He uses oral benzocaine as needed. He expresses ambivalence about transferring to the adult family home tomorrow. He has become very comfortable with staff here and expresses being a bit nervous. However, he is looking forward to being able to get back into a more normal life. He does complain of slight swelling to his right upper extremity today. Exam Vital Signs (past 8 hours): - 06/24/22 11:00 06/24/22 18:14 Temperature 96.8 F L Pulse Rate 75 69 Respiratory Rate 16 18 Blood Pressure 124/66 Pulse Oximetry 93 96 Oxygen Delivery Method Room Air Oxygen Flow Rate 0 Oxygen Delivery Method Room Air Oxygen Flow Rate 0 Narrative Exam Narrative: GEN:? Middle-aged male, Alert and oriented x 3, chronically ill appearing, NAD HEENT: NC, asymmetric CHEST: Respiratory excursions symmetric, CTAB CV: RRR, no M/R/G ABD: Soft, NT/ND, BT present in all 4 quadrants, no organomegaly or masses EXTR: warm, well perfused, no C/C/E, right upper extremity remains weak, mild edema to the right upper extremity SKIN: warm and dry, no rash NEURO: Alert and oriented x 3, persistent right upper extremity weakness Objective Labs Result Diagrams: 06/15/22 10:51 06/15/22 10:51 Labs: Laboratory Results - last 24 hr 06/24/22 06/24/22 08:15 08:25 Chlamy pneumoniae PCR Not detected Adenovirus (PCR) Not detected B. pertussis DNA (PCR) Not detected B.parapertussis DNA PCR Not detected Coronavirus OC43 (PCR) Not detected Coronavirus HKU1 (PCR) Not detected Coronavirus 229E (PCR) Not detected SARS-CoV-2 (PCR) Not detected Negative Coronavirus NL63 (PCR) Not detected Human Metapneumovir PCR Not detected Influenza Type A (PCR) Not detected Influenza Type B (PCR) Not detected M. pneumoniae (PCR) Not detected Parainfluenza 1 (PCR) Not detected Parainfluenza 2 (PCR) Not detected Parainfluenza 3 (PCR) Not detected Parainfluenza 4 (PCR) Not detected RSV (PCR) Not detected Entero/Rhino (PCR) Not detected [facility] Medical History (Updated 06/13/22 @ 17:45 by Venu Vega DMD) Asthma Chronic back pain greater than 3 months duration Closed intertrochanteric fracture of left femur Depression Drug abuse, IV History of CVA (cerebrovascular accident) Poor dentition Surgical History History of hernia repair Family History Father Unknown family medical history Mother No problems noted. Grandmother Myocardial infarction Grandfather No problems noted. Social History household members: friend(s) Smoking Status: Current some day smoker alcohol intake: current Assessment & Plan Assessment & Plan narrative: 1. Dental pain Patient has multiple fractured teeth with just the root remaining in place.? Facial CT was done June 05 which revealed tiny residual roots of the lateral mandibular incisors and canines with adjacent periapical lucency.? No lytic or destructive lesion in the mandible.? No maxillary teeth present.? No acute soft tissue findings.? The periapical lucency could be consistent with dental abscess.? Received a course of clindamycin.? Will need outpatient follow-up with oral surgery, Dr. Vega. 2. Generalized weakness Patient is chronically debilitated.? This admission he underwent 2 brain MRIs which for stroke, C-spine MRI with chronic pathology but no acute cord compression.? Remainder of workup was otherwise unremarkable.? He was initiated on Cymbalta 05/18 and gabapentin 05/21 with good results.? Continues to work with therapies. 3. . Hyperlipidemia Continue atorvastatin. 4. Polysubstance dependence Currently in remission 5. Prior stroke with residual right-sided weakness Continues aspirin and atorvastatin.? No evidence of new stroke this admission. 6. Microcytic anemia Thalassemia screen was negative this admission.? No evidence of iron deficiency. 7. Hepatitis-C Positive hep C antibody and hep C RNA greater than 1,000,000.? Will need outpatient follow-up and consideration treatment. Resolved issues: Altered mental status/metabolic encephalopathy Oral thrush Acute respiratory failure due to pneumonia Pneumonia Code status Full Prophylaxis Low [place] score Disposition Has been accepted to an adult family home for admission tomorrow Time Spent With Patient Critical Care time: I spent a total of [] minutes of critical care time on this patient's care today; this time is exclusive of procedural time. Quality VTE Deep Vein Thrombosis/Pulmonary Embolism Present on Admission: No
--- NOTE | 2022-06-24 18:21 | PC.NURSE ---
pt has questions about the facility that he is going to tomorrow and is hoping to be able to continue with physical therapy. Rn explained about the adult home he is going to and will let care management know that he has more questions. Pt's mom called with questions as well, the RN gave her the facility name, phone, and address and transferred call to pt at mom's request. pt has not requested any additional pain med doses aside from his scheduled doses today. Bridgette visited again this evening, with supervision.
[2022-06-24 20:19] VITALS: BP 133/76; PULSE 82; RESP 17; TEMP 36.6; O2SAT 95
[2022-06-24] MEDS: ATORVASTATIN 20 MG TABLET 40 MG PO (20:21)
[2022-06-24] MEDS: LORazepam 1 MG TABLET 0.5 MG PO (20:35)
[2022-06-25] MEDS: HYDROCODONE/ACET 10/325 TABLET 1 TAB PO ×3 (02:30→08:11)
[2022-06-25] MEDS: ORAJEL 1 EACH TOP (05:12)
[2022-06-25] MEDS: ENOXAPARIN 40 MG/0.4 ML SYRINGE SUBCUT (08:08)
[2022-06-25] MEDS: IBUPROFEN 400 MG TABLET 600 MG PO (08:08)
[2022-06-25] MEDS: ASPIRIN EC 81 MG TABLET PO (08:08)
[2022-06-25] MEDS: DULOXETINE 30 MG CAPSULE 60 MG PO (08:08)
[2022-06-25] MEDS: FOLIC ACID 1 MG TABLET PO (08:10)
[2022-06-25] MEDS: PANTOPRAZOLE DR 40 MG TABLET PO (08:10)
[2022-06-25] MEDS: SENNOSIDES 8.6 MG TABLET PO (08:10)
[2022-06-25] MEDS: DOCUSATE 100 MG CAPSULE PO (08:10)
[2022-06-25] MEDS: GABAPENTIN 400 MG CAPSULE PO (08:11)
[2022-06-25] MEDS: NICOTINE 14 PATCH 14 MG TOP (08:11)
[2022-06-25] MEDS: MULTIVITAMIN 1 TABLET 1 TAB PO (08:11)
[2022-06-25] MEDS: LORazepam 0.5 MG TABLET PO (08:16)
--- NOTE | 2022-06-25 08:22 | P.DS_ITS ---
History of Present Illness History of Present Illness Chief complaint: Suspected right sided CVA Narrative: Fahad Ramesh is a 62 y.o. male current smoker and IV drug user, history of a prior right sided CVA in 2016 and resident of [facility] presented to the ED with a week plus complaint of weakness and multiple falls. Patient is very lethargic and unable to provide a history, speaks in whispered voice and difficult to understand. Per the ED provider, he normally walks with a cane and over the past week or two, has had numbness, tingling and weakness in his left upper and lower extremities. He was able to state to me that he did not have any shortness of breath or chest pain. CT of the head was negative for any acute intercrainal findings, CTA stated as normal. Patient is afebrile, normotensive, HR 84, RR 16, oxygen saturation of 95% on room air, he weighs 68 kilograms w/a BMI of 22.9.CBC is unremarkable, glucose 127, urine toxicology is positive for opiates, amphetamine, and methamphetamine. Urine POC was negative for a UTI. COVID-19 PCR is negative. Next Discharge Providers Provider Date of admission: 05/01/22 04:28 Discharge Date: 06/25/22 Primary care physician: Kenney Joshi MD Consults: 05/01/22 01:16 Consult After Hours PICC Line RN Stat Comment: 05/01/22 05:17 Consult to Discharge Planning Routine Comment: Consult to Occupational Therapy Evaluate & Treat Comment: Physician Instructions: Evaluate and treat Consult to Physical Therapy Evaluate & Treat Comment: Physician Instructions: Evaluate and Treat Consult to Speech Therapy Evaluate & Treat Comment: Physician Instructions: Evaluate and treat 05/02/22 16:23 Consult to Dietitian, Adult Routine Comment: Reason For Exam: altered sensation, poor nutrition 05/03/22 11:41 Consult to Speech Therapy Evaluate & Treat Comment: Physician Instructions: Evaluate and treat 05/03/22 17:22 Consult to Dietitian, Adult Routine Comment: Reason For Exam: poor po inadequate 05/06/22 14:31 Consult to Occupational Therapy Evaluate & Treat Comment: Physician Instructions: Evaluate and treat Consult to Physical Therapy Evaluate & Treat Comment: Physician Instructions: Evaluate and Treat 05/14/22 09:22 Consult to Dietitian, Adult Routine Comment: Reason For Exam: Malnutrition/Failure to Thrive 05/17/22 11:21 Consult to Orthopedic Surgery Routine Comment: Consulting Provider: Amarilis Alcantara Reason for consultation: weakness Has provider been notified: Yes 05/23/22 10:08 Consult to Physician Routine Comment: Consulting Provider: Julito Richmond Reason for consultation: Concern for hallucinations. Has provider been notified: No 06/04/22 16:00 Consult to Physician Routine Comment: Consulting Provider: Julito Richmond Reason for consultation: suicidal ideation Has provider been notified: Yes 06/08/22 18:45 Consult to Physician Routine Comment: Consulting Provider: Venu Vega Reason for consultation: tooth pain Has provider been notified: Yes 06/18/22 16:18 Consult to Dietitian, Adult Routine Comment: Reason For Exam: low Wilmer score 06/20/22 12:23 Consult to Home Health Routine Comment: generalized weakness, hx CVA, hyperlipidemia Reason For Exam: Set up RN/PT/OT for discharge to [facility] 06/21/22 15:03 Consult to Home Health Routine Comment: Reason For Exam: Home Health RN, P.T, O.T. Discharge provider: Mingo Ritchie DO Summary Hospital Course Discharge Diagnosis: 1. Generalized weakness Patient is chronically debilitated.? This admission he underwent 2 brain MRIs which for stroke, C-spine MRI with chronic pathology but no acute cord compression.? Remainder of workup was otherwise unremarkable.? He was initiated on Cymbalta 05/18 and gabapentin 05/21 with good results.? Continues to work with therapies. 2. Dental pain Patient has multiple fractured teeth with just the root remaining in place.? Facial CT was done June 05 which revealed tiny residual roots of the lateral mandibular incisors and canines with adjacent periapical lucency.? No lytic or destructive lesion in the mandible.? No maxillary teeth present.? No acute soft tissue findings.? The periapical lucency could be consistent with dental abscess.? Received a course of clindamycin.? Dr. Vega oral reassess inset no acute infection present. Will need outpatient follow-up for tooth extractions. 3. . Hyperlipidemia Continue atorvastatin. 4. Polysubstance dependence Currently in remission 5. Prior stroke with residual right-sided weakness Continues aspirin and atorvastatin.? No evidence of new stroke this admission. 6. Microcytic anemia Thalassemia screen was negative this admission.? No evidence of iron deficiency. 7. Hepatitis-C Positive hep C antibody and hep C RNA greater than 1,000,000.? Will need outpatient follow-up and consideration treatment. Resolved issues: Altered mental status/metabolic encephalopathy Oral thrush Acute respiratory failure due to pneumonia Pneumonia Hospital Course: 62-year-old gentleman with underlying substance dependence, stroke with right- sided weakness, depression, chronic back pain, and asthma initially admitted with concern for worsening stroke symptoms and altered mental status.?Stroke was ruled out. He has had a prolonged hospitalization related to his overall weakness and delays in getting him placed.? On June 09, he began having worsening symptoms of dental pain and was assessed by a local oral surgeon said no infection present but needs tooth extraction on outpatient basis.? Is now eating and drinking well.? He uses oral benzocaine as needed. After 54 days was placed in adult family home. Exam Vital Signs (past 8 hours): Oxygen Delivery Method Room Air Oxygen Flow Rate 0 Narrative Exam Narrative: GEN:? Middle-aged male, Alert and oriented x 3, chronically ill appearing, NAD HEENT: NC, asymmetric CHEST: Respiratory excursions symmetric, CTAB CV: RRR, no M/R/G ABD: Soft, NT/ND, BT present in all 4 quadrants, no organomegaly or masses EXTR: warm, well perfused, no C/C/E, right upper extremity remains weak, mild edema to the right upper extremity SKIN: warm and dry, no rash NEURO: Alert and oriented x 3, persistent right upper extremity weakness Objective Labs Result Diagrams: 06/15/22 10:51 06/15/22 10:51 Labs: Laboratory Results - last 24 hr 06/24/22 06/24/22 08:15 08:25 Chlamy pneumoniae PCR Not detected Adenovirus (PCR) Not detected B. pertussis DNA (PCR) Not detected B.parapertussis DNA PCR Not detected Coronavirus OC43 (PCR) Not detected Coronavirus HKU1 (PCR) Not detected Coronavirus 229E (PCR) Not detected SARS-CoV-2 (PCR) Not detected Negative Coronavirus NL63 (PCR) Not detected Human Metapneumovir PCR Not detected Influenza Type A (PCR) Not detected Influenza Type B (PCR) Not detected M. pneumoniae (PCR) Not detected Parainfluenza 1 (PCR) Not detected Parainfluenza 2 (PCR) Not detected Parainfluenza 3 (PCR) Not detected Parainfluenza 4 (PCR) Not detected RSV (PCR) Not detected Entero/Rhino (PCR) Not detected PFSH Medical History (Updated 06/13/22 @ 17:45 by Venu Vega DMD) Asthma Chronic back pain greater than 3 months duration Closed intertrochanteric fracture of left femur Depression Drug abuse, IV History of CVA (cerebrovascular accident) Poor dentition Surgical History History of hernia repair Family History Father Unknown family medical history Mother No problems noted. Grandmother Myocardial infarction Grandfather No problems noted. Social History household members: friend(s) Smoking Status: Current some day smoker alcohol intake: current Discharge Plan Discharge Plan Patient Disposition: Released, Other Other facility[facility] Discharge orders & Medications Discharge Orders: Discharge (Order); Ordered 06/25/22 Ordered By: Mingo Ritchie Prescriptions: New folic acid 1 mg Tablet 1 mg PO DAILY Qty: 30 0RF aspirin 81 mg Tablet,Delayed Release (Dr/Ec) 81 mg PO DAILY 30 Days Qty: 30 0RF atorvastatin 40 mg tablet 40 mg PO BEDTIME 30 Days Qty: 30 0RF duloxetine 60 mg capsule,delayed release(DR/EC) 60 mg PO DAILY 30 Days Qty: 30 0RF gabapentin [Neurontin] 400 mg Capsule 400 mg PO TID 30 Days Qty: 90 0RF hydrocodone-acetaminophen 10-325 mg Tablet 1 tab PO Q4HR 7 Days Qty: 40 0RF lorazepam 0.5 mg Tablet 0.5 mg PO 0900,2100 7 Days Qty: 14 0RF ibuprofen 400 mg Tablet 600 mg PO TID PRN (Reason: Mild Pain (Scale Score 1-4)) 30 Days Qty: 90 0RF lorazepam 1 mg Tablet 0.5 mg PO BID PRN (Reason: Anxiety / spasticity) 7 Days Qty: 14 0RF ondansetron 4 mg Tablet,Disintegrating 4 mg sublingual Q4H PRN (Reason: Nausea) 30 Days Qty: 30 0RF fentanyl 12 mcg/hr Patch 72 Hour 12 mcg topical Q72H 15 Days Qty: 5 0RF multivitamin with folic acid [Tab-A-Kitty] 400 mcg Tablet 1 tab PO DAILY 30 Days Qty: 30 0RF sennosides [senna] 8.6 mg Tablet 8.6 mg PO BID 30 Days Qty: 60 0RF pantoprazole 40 mg Tablet,Delayed Release (Dr/Ec) 40 mg PO BID 30 Days Qty: 60 0RF Orajel 1 dose topical Q4H 30 Days Qty: 1 0RF Continued sertraline [Zoloft] 100 mg Tablet 100 mg PO DAILY acetaminophen 325 mg Tablet 650 mg PO Q6HR PRN (Reason: Fever/Mild Pain (1-3)) Qty: 30 0RF fluticasone propion-salmeterol 250-50 mcg/dose blister with device 1 inh INHALATION BID Qty: 1 0RF albuterol sulfate 90 mcg/actuation HFA aerosol inhaler 1 puff INHALATION BID Label Comments: INHALE 1 PUFF INTO THE LUNGS TWICE DAILY Spiriva Respimat 2.5 mcg/actuation mist 2 puff INHALATION DAILY Label Comments: INHALE 2 PUFFS INTO THE LUNGS DAILY Follow up/Referrals: Kenney Joshi MD [Primary Care Provider] - Diet/Activity/Treatments Activity: As tolerated, Per HH PT/OT Oxygen: N/A Discharge Data Primary Care Provider: Kenney Joshi Quality VTE Deep Vein Thrombosis/Pulmonary Embolism Present on Admission: No
--- NOTE | 2022-06-25 09:27 | CM.DPC ---
DCP Cont: DCP faxed d/c summary, COVID results, and signed med list to [facility] this morning. DCP also faxed d/c summary to [facility] and has called them to inform them of pt discharge. DCP spoke to the pt this morning and he wanted to know the address of the facility he was going to today. DCP provided him with that information. Pt also wanted DCP to contact Bridgette, , of his departure. DCP attempted to contact Bridgette, however, another person answered the phone and stated I dont know where Bridgette is but she did not stay here last night. [facility] transport arrived @ 0915 to transport pt to [facility] in [place]. [facility] aware. Roya More RN/AUTUMNP
--- NOTE | 2022-06-25 10:12 | PC.NURSE ---
late entry: A&OX4. patient has no IV site. morning meds are given and med list are printed and are in the folder. denied n/v or chest pain. Rt. arm edematous and still weak/flaccid. able to make needs known. LS: dim. voiding without difficulty.
--- NOTE | 2022-06-27 13:27 | CM.DPNOTE ---
Late entry: Zulema from [facility] [place] office, called to let us know they are unable to provide nursing services in the [facility] due to nursing shortage. She said they could still provide the other services PT/OT. Sylvia said to proceed with the PT/OT services. Kristin Schwarz, JEREMY Assist.
== END 2022-06-25 09:30 | disposition home or self-care (01) | DRG 947 ==
LOC: ED 22:57 → AC 05-01 04:37
PROVIDERS: Emergency Medicine; Family Medicine; Internal Medicine; Neuromusculoskeletal Medicine, Sports Medicine; Nurse Practitioner Family; Admitting Provider Nurse Practitioner Family; Emergency Provider Emergency Medicine; Family Provider Family Medicine; PCP Family Medicine; Referring Provider Emergency Medicine; Visit Provider Nurse Practitioner Family
DX: R53.1 Weakness (principal); J69.0 Pneumonitis due to inhalation of food and vomit; J96.01 Acute respiratory failure with hypoxia; J15.4 Pneumonia due to other streptococci; G93.41 Metabolic encephalopathy; F11.221 Opioid dependence with intoxication delirium; F15.20 Other stimulant dependence, uncomplicated; B37.0 Candidal stomatitis; I69.951 Hemiplegia and hemiparesis following unspecified cerebrovascular disease affecting right dominant side; F11.23 Opioid dependence with withdrawal; B37.9 Candidiasis, unspecified; B19.20 Unspecified viral hepatitis C without hepatic coma; F32.A Depression, unspecified; E78.5 Hyperlipidemia, unspecified; I10 Essential (primary) hypertension; K03.81 Cracked tooth; M79.89 Other specified soft tissue disorders; F17.210 Nicotine dependence, cigarettes, uncomplicated; E87.6 Hypokalemia; M48.02 Spinal stenosis, cervical region; R11.2 Nausea with vomiting, unspecified; J45.909 Unspecified asthma, uncomplicated; Z20.822 Contact with and (suspected) exposure to COVID-19; Z59.41 Food insecurity
CPT/HCPCS: 36415; 36592; 70450; 70487; 70496; 70498; 70551; 70553; 71045; 72156; 74176; 80048; 80053; 80061; 80074; 80305; 81003; 81364; 82550; 82962; 83036; 83519; 83540; 83550; 83735; 84145; 84443; 84484; 85025; 85610; 85651; 85730; 86038; 86140; 87070; 87077; 87147; 87186; 87205; 87389; 87633; 87635; 90792; 92507; 92526; 92610; 93005; 93010; 93306; 93971; 94640; 94760; 94762; 94799; 97110; 97112; 97116; 97129; 97163; 97167; 97530; 97535; 99231; 99284; 99285; C9803; C9113; J0696; J1642; J1650; J1815; J2060; J2405; J2765; J7613; Q9967

== ENCOUNTER 2022-06-28 22:36 | Emergency (ER) | payer OTHER, MEDICAID, SELFPAY ==
[2022-06-28 23:00] VITALS: BP 168/88; PULSE 94; RESP 18; TEMP 36.9; O2SAT 94
--- NOTE | 2022-06-28 23:23 | PC.NURSE ---
At 2129, pt was offered bedtime meds and was agreeable. Pt took meds with no difficulty. Mother in room at the time, working on a puzzle on the floor while patient watched. At 2319 DCR phoned, continues to be unable to locate a bed for the patient at this time.
[2022-06-29] VITALS (15 sets, daily range): BP systolic 123–148; BP diastolic 67–83; PULSE 68–80; RESP 12–20; TEMP 36.4; O2SAT 91–98
--- NOTE | 2022-06-29 | DI.RAD.S_ITS ---
PROCEDURE: XR CHEST 1V INDICATIONS: CENTRAL LINE PLACEMENT. TECHNIQUE: One view of the chest was acquired. COMPARISON: [facility], CR, XR CHEST 1V, 05/23/2022, 15:04. FINDINGS: Surgical changes and devices: Central venous catheter projects to the distal SVC via a right subclavian approach. Lungs and pleura: Lungs are clear. No pleural effusions or pneumothorax. Mediastinum: Mediastinal contours appear normal. Heart size is normal. Bones and chest wall: No suspicious bony lesions. Overlying soft tissues appear unremarkable. IMPRESSION: Central venous catheter tip projects over the distal SVC. Dictated by: Nicci Engel MD, PhD on 06/29/2022 at 7:43 Approved by: Nicci Engel MD, PhD on 06/29/2022 at 7:46
--- NOTE | 2022-06-29 00:12 | ED.ABDPAIN ---
HPI - Abdominal Pain <Richard Hannon DO - Last Filed: 06/30/22 02:52> General Chief Complaint: Abdominal Pain Stated Complaint: abd pain, asthma issues Time Seen by Provider: 06/28/22 23:05 Source: patient Mode of arrival: Wheelchair History of Present Illness HPI narrative: 62-year-old male smoker with history of IV drug abuse and prior stroke resulting in right-sided weakness presents with a chief complaint of generalized weakness and fatigue as well as abdominal pain and inability to have a bowel movement. He is a very poor historian and has little to contribute. He was apparently dropped off by his ex-. He was recently admitted and had a prolonged hospitalization due to difficulty with placement though in the end he ended up at an adult assisted living home. He denies any headache but does complain of some difficulty in breathing. He denies nausea or vomiting but complains of abdominal pain and difficulty with bowel movement. He states he feels terrible and generally weak and does not add much more than that. It is unclear if he has been taking his medications. Related Data Home Medications Medication Instructions Recorded Confirmed sertraline 100 mg tablet (Zoloft) 100 mg PO DAILY 05/11/21 05/02/22 albuterol sulfate 90 mcg/actuation 1 puff inhalation BID 05/01/22 05/01/22 aerosol inhaler tiotropium bromide 2.5 2 puff inhalation DAILY 05/01/22 05/01/22 mcg/actuation mist for inhalation (Spiriva Respimat) Previous Rx's Medication Instructions Recorded acetaminophen 325 mg tablet 650 mg PO Q6HR PRN Fever/Mild Pain 05/12/21 (1-3) #30 tabs fluticasone 250 mcg-salmeterol 50 1 inh inhalation BID #1 ea 05/12/21 mcg/dose blistr powdr for inhalation folic acid 1 mg tablet 1 mg PO DAILY #30 tabs 05/10/22 Orajel 1 dose topical Q4H 30 days #1 ea 06/21/22 aspirin 81 mg tablet,delayed 81 mg PO DAILY 30 days #30 tabs 06/21/22 release atorvastatin 40 mg tablet 40 mg PO BEDTIME 30 days #30 tabs 06/21/22 duloxetine 60 mg capsule,delayed 60 mg PO DAILY 30 days #30 caps 06/21/22 release fentanyl 12 mcg/hr transdermal 12 mcg topical Q72H 15 days #5 ea 06/21/22 patch gabapentin 400 mg capsule 400 mg PO TID 30 days #90 caps 06/21/22 (Neurontin) ibuprofen 400 mg tablet 600 mg PO TID PRN Mild Pain (Scale 06/21/22 Score 1-4) 30 days #90 tabs multivitamin with folic acid 400 1 tab PO DAILY 30 days #30 tabs 06/21/22 mcg tablet (Tab-A-Kitty) ondansetron 4 mg disintegrating 4 mg sublingual Q4H PRN Nausea 30 06/21/22 tablet days #30 tabs pantoprazole 40 mg tablet,delayed 40 mg PO BID 30 days #60 tabs 06/21/22 release sennosides 8.6 mg tablet (senna) 8.6 mg PO BID 30 days #60 tabs 06/21/22 lactulose 10 gram/15 mL oral 10 g (15 mL) PO DAILY PRN 06/29/22 solution constipation #237 mL Allergies Allergy/AdvReac Type Severity Reaction Status Date / Time amoxicillin [AMOXICILLIN] Allergy Unknown DOES NOT Verified 04/30/22 17:34 REMEMBER SOMETHING NOT GOOD Penicillins [PENICILLINS] Allergy Unknown CAN'T Verified 04/30/22 17:34 REMEMBER RX Review of Systems <Richard Hannon DO - Last Filed: 06/30/22 02:52> Review of Systems Narrative: GENERAL: See HPI HEENT: Denies sinus pain, ear pain, sore throat, difficulty swallowing, dizziness. RESPIRATORY: Denies dyspnea, cough, wheezing, hemoptysis, sputum. CARDIOVASCULAR: Denies chest pain, palpitations, orthopnea, edema, GASTROINTESTINAL: Denies nausea, vomiting, abdominal pain, diarrhea, constipation, melena. : Denies dysuria, frequency, incontinence, hematuria, urinary retention. MUSCULOSKELETAL: denies weakness, joint pain, or bony pain SKIN: Denies rash, skin lesions, or other NEUROLOGIC: Denies weakness, headache, numbness, change in speech, confusion, seizures, incoordination. PSYCHIATRIC: No concerning psychosocial issues. 12 point review of systems is negative except for those stated above Patient History <Richard Hannon DO - Last Filed: 06/30/22 02:52> Medical History (Updated 06/29/22 @ 08:51 by Sosa Bernstein DO) Asthma Chronic back pain greater than 3 months duration Closed intertrochanteric fracture of left femur Depression Drug abuse, IV History of CVA (cerebrovascular accident) Poor dentition Surgical History History of hernia repair Family History Father Unknown family medical history Mother No problems noted. Grandmother Myocardial infarction Grandfather No problems noted. Social History household members: friend(s) Smoking Status: Current some day smoker alcohol intake: current Smoking Status: Current some day smoker tobacco type: cigarettes alcohol intake frequency: a few times a month Substance Use Type: former substance user, marijuana, heroin, opiates and IV drugs Exam <Richard Hannon DO - Last Filed: 06/30/22 02:52> Narrative Exam Narrative: GENERAL: [62] year old patient appears older than stated age. Chronically ill, very soft-spoken, sleepy but easily arousable and guarding his own airway. HEAD: Atraumatic. Normocephalic. EYES: Pupils equal round and reactive. Extraocular motions intact. No scleral icterus. No injection or drainage. ENT: Dry mucous membranes. Nose without bleeding, purulent drainage. Throat without erythema, tonsillar hypertrophy or exudate. Airway patent. NECK: Trachea midline. Non tender CARDIOVASCULAR: Regular rate and rhythm without murmurs, gallops, or rubs. RESPIRATORY: Clear to auscultation. Breath sounds equal bilaterally. No wheezes, rales, or rhonchi. GASTROINTESTINAL: Abdomen soft, non-tender, nondistended. EXTREMITIES: No edema or joint tenderness. BACK: Nontender without deformity or crepitance. No flank tenderness. NEURO: Awake, arousable, sluggish responses, follows commands, cranial nerves 2-12 grossly intact SKIN: Poor skin turgor No rash or erythema of visible areas Initial Vital Signs Initial Vital Signs: Vital Signs Temperature 98.5 F 06/28/22 23:00 Pulse Rate 94 H 06/28/22 23:00 Respiratory Rate 18 06/28/22 23:00 Blood Pressure 168/88 H 06/28/22 23:00 Pulse Oximetry 94 06/28/22 23:00 Oxygen Delivery Method 08/04/22 23:00 <Sosa Bernstein DO - Last Filed: 06/29/22 17:54> Initial Vital Signs Initial Vital Signs: Vital Signs Temperature 98.5 F 06/28/22 23:00 Pulse Rate 94 H 06/28/22 23:00 Respiratory Rate 18 06/28/22 23:00 Blood Pressure 168/88 H 06/28/22 23:00 Pulse Oximetry 94 06/28/22 23:00 Oxygen Delivery Method 06/28/22 23:00 Procedures <Richard Hannon DO - Last Filed: 06/30/22 02:52> Central Line Placement Right SC: Time Out Performed: Yes Patient Placed on Monitor/Pulse Ox: Yes MD Prep: mask, gown and gloves Central Line Prep: Chlorhexidine scrub and sterile drapes applied Local Anesthetic: lidocaine 1% Amount of anesthesia used (mL): 3 Ultrasound Used for Placement: No Central Line Lumen Inserted: triple Post Procedure: good blood return, all ports aspirated, flushed, capped and sterile dressing applied Post Procedure X-Ray: tip of catheter in good position and no pneumothorax seen Patient Tolerated Procedure: Well Course <Richard Hannon DO - Last Filed: 06/30/22 02:52> Orders Ordered: Discontinued Medications Sodium Chloride (Normal Saline 0.9%) 1,000 mls @ 1,000 mls/hr IV BOLUS ONE Stop: 06/29/22 03:59 Last Infusion: 06/29/22 04:04 Dose: 0 mls/hr Documented By: ANA MARIA Admin: 06/29/22 03:05 Dose: 1,000 mls/hr Documented By: ANA MARIA Magnesium Citrate (Magnesium Citrate 300 Ml Solution) 300 ml PO NOW ONE Stop: 06/29/22 08:49 Last Admin: 06/29/22 08:53 Dose: 300 ml Documented By: ARACELI Vital Signs Vital signs: Vital Signs - 8 hr 06/29/22 10:00 06/29/22 10:00 Pulse Rate 68 Respiratory Rate 14 Blood Pressure 143/80 H Pulse Oximetry 95 <Sosa Bernstein DO - Last Filed: 06/29/22 17:54> Orders Ordered: Discontinued Medications Sodium Chloride (Normal Saline 0.9%) 1,000 mls @ 1,000 mls/hr IV BOLUS ONE Stop: 06/29/22 03:59 Last Infusion: 06/29/22 04:04 Dose: 0 mls/hr Documented By: ANA MARIA Admin: 06/29/22 03:05 Dose: 1,000 mls/hr Documented By: ANA MARIA Magnesium Citrate (Magnesium Citrate 300 Ml Solution) 300 ml PO NOW ONE Stop: 06/29/22 08:49 Last Admin: 06/29/22 08:53 Dose: 300 ml Documented By: ARACELI Vital Signs Vital signs: Vital Signs - 8 hr 06/29/22 10:00 06/29/22 10:00 Pulse Rate 68 Respiratory Rate 14 Blood Pressure 143/80 H Pulse Oximetry 95 MDM - Abdominal Pain <Richard Hannon DO - Last Filed: 06/30/22 02:52> Lab Data Result diagrams: 06/29/22 02:55 06/29/22 02:55 Labs: Lab Results 06/29/22 06/29/22 06/29/22 Range/Units 02:55 02:55 02:55 WBC 7.4 (4.5-11.0) X10^3/uL RBC 4.87 (4.5-5.9) X10^6/uL Hgb 11.5 L (13.5-17.5) g/dL Hct 35.2 L (41-53) % MCV 72.2 L (80-100) fL MCH 23.5 L (26-34) PG MCHC 32.6 (30-36) % RDW 21.2 H (11.6-14.8) % Plt Count 200 (150-400) X10^3/uL Neut % (Auto) 61.5 (50-75) % Lymph % (Auto) 26.8 (25-40) % Woodson % (Auto) 10.7 (3-14) % Eos % (Auto) 0.8 L (2-4) % Baso % (Auto) 0.2 (0-2) % Neut # (Auto) 4500 (5873-5747) /uL Lymph # (Auto) 2000 (5986-7980) /uL Woodson # (Auto) 800 (0-900) /uL Eos # (Auto) 100 (0-450) /uL Baso # (Auto) 0 (0-100) /uL RBC Morphology See below Anisocytosis 2+ H Sodium 140 (137-145) mmol/L Potassium 3.9 (3.4-5.1) mmol/L Chloride 102 (98-107) mmol/L Carbon Dioxide 33 H (22-32) mmol/L BUN 24 H (9-20) mg/dL Creatinine 0.55 L (0.66-1.25) mg/dL Estimated GFR > 60 (>60) mL/min BUN/Creatinine Ratio 43.6 H (6-22) Glucose 115 H (80-110) mg/dL Lactate (0.7-2.1) mmol/L Calcium 9.2 (8.4-10.2) mg/dL Total Bilirubin 0.5 (0.2-1.3) mg/dL AST 102 H (17-59) IU/L ALT 269 H (<50) IU/L Alkaline Phosphatase 93 (38-126) U/L Total Creatine Kinase 32 L (55-170) U/L CK-MB (CK-2) TNP CK-MB (CK-2) Rel Index TNP Troponin I < 0.012 (0.01-0.034) ng/mL Total Protein 7.7 (6.3-8.2) g/dL Albumin 4.1 (3.5-5.0) g/dL Globulin 3.6 (1.7-4.1) g/dL Albumin/Globulin Ratio 1.1 (1.0-2.8) Lipase 39 (23-300) U/L Urine Color Urine Appearance Urine pH (4.5-8.0) Ur Specific Cadott (1.000-1.035) Urine Protein (Negative) Urine Glucose (UA) (Negative) g/dL Urine Ketones (NEGATIVE) Urine Occult Blood (Negative) Urine Nitrate (Negative) Urine Bilirubin (NEGATIVE) Urine Urobilinogen (0.2) E.U./dL Ur Leukocyte Esterase (NEGATIVE) Urine RBC (0-5/HPF) Urine WBC (0-5/HPF) Ur Squamous Epith Cells (0-5/HPF) Ur Transition Epith Cell (0-5/HPF) Urine Bacteria (None) Urine Mucus (Negative) Ur Culture Indicated? Salicylates (<20) mg/dL U Opiates 300ng/mL cut (Negative) Ur Oxycodone Screen (Negative) Urine Methadone Screen (Negative) Acetaminophen (10-30) ug/mL Ur Barbiturates Screen (Negative) U Tricyclic Antidepress (Negative) Ur Phencyclidine Scrn (Negative) Ur Amphetamines Screen (Negative) U Methamphetamines Scrn (Negative) Ur MDMA Scrn (Ecstasy) (Negative) U Benzodiazepines Scrn (Negative) Urine Cocaine Screen (Negative) U Marijuana (THC) Screen (Negative) Ethyl Alcohol < 10 ( - 10) mg/dL SARS-CoV-2 (PCR) (Negative) 06/29/22 06/29/22 06/29/22 Range/Units 02:55 02:55 03:24 WBC (4.5-11.0) X10^3/uL RBC (4.5-5.9) X10^6/uL Hgb (13.5-17.5) g/dL Hct (41-53) % MCV (80-100) fL MCH (26-34) PG MCHC (30-36) % RDW (11.6-14.8) % Plt Count (150-400) X10^3/uL Neut % (Auto) (50-75) % Lymph % (Auto) (25-40) % Woodson % (Auto) (3-14) % Eos % (Auto) (2-4) % Baso % (Auto) (0-2) % Neut # (Auto) (9336-2076) /uL Lymph # (Auto) (5420-3970) /uL Woodson # (Auto) (0-900) /uL Eos # (Auto) (0-450) /uL Baso # (Auto) (0-100) /uL RBC Morphology Anisocytosis Sodium (137-145) mmol/L Potassium (3.4-5.1) mmol/L Chloride (98-107) mmol/L Carbon Dioxide (22-32) mmol/L BUN (9-20) mg/dL Creatinine (0.66-1.25) mg/dL Estimated GFR (>60) mL/min BUN/Creatinine Ratio (6-22) Glucose (80-110) mg/dL Lactate 0.8 (0.7-2.1) mmol/L Calcium (8.4-10.2) mg/dL Total Bilirubin (0.2-1.3) mg/dL AST (17-59) IU/L ALT (<50) IU/L Alkaline Phosphatase (38-126) U/L Total Creatine Kinase (55-170) U/L CK-MB (CK-2) CK-MB (CK-2) Rel Index Troponin I (0.01-0.034) ng/mL Total Protein (6.3-8.2) g/dL Albumin (3.5-5.0) g/dL Globulin (1.7-4.1) g/dL Albumin/Globulin Ratio (1.0-2.8) Lipase (23-300) U/L Urine Color Urine Appearance Urine pH (4.5-8.0) Ur Specific Cadott (1.000-1.035) Urine Protein (Negative) Urine Glucose (UA) (Negative) g/dL Urine Ketones (NEGATIVE) Urine Occult Blood (Negative) Urine Nitrate (Negative) Urine Bilirubin (NEGATIVE) Urine Urobilinogen (0.2) E.U./dL Ur Leukocyte Esterase (NEGATIVE) Urine RBC (0-5/HPF) Urine WBC (0-5/HPF) Ur Squamous Epith Cells (0-5/HPF) Ur Transition Epith Cell (0-5/HPF) Urine Bacteria (None) Urine Mucus (Negative) Ur Culture Indicated? Salicylates < 1.0 (<20) mg/dL U Opiates 300ng/mL cut (Negative) Ur Oxycodone Screen (Negative) Urine Methadone Screen (Negative) Acetaminophen < 10 (10-30) ug/mL Ur Barbiturates Screen (Negative) U Tricyclic Antidepress (Negative) Ur Phencyclidine Scrn (Negative) Ur Amphetamines Screen (Negative) U Methamphetamines Scrn (Negative) Ur MDMA Scrn (Ecstasy) (Negative) U Benzodiazepines Scrn (Negative) Urine Cocaine Screen (Negative) U Marijuana (THC) Screen (Negative) Ethyl Alcohol ( - 10) mg/dL SARS-CoV-2 (PCR) Negative (Negative) 06/29/22 06/29/22 Range/Units 03:40 03:40 WBC (4.5-11.0) X10^3/uL RBC (4.5-5.9) X10^6/uL Hgb (13.5-17.5) g/dL Hct (41-53) % MCV (80-100) fL MCH (26-34) PG MCHC (30-36) % RDW (11.6-14.8) % Plt Count (150-400) X10^3/uL Neut % (Auto) (50-75) % Lymph % (Auto) (25-40) % Woodson % (Auto) (3-14) % Eos % (Auto) (2-4) % Baso % (Auto) (0-2) % Neut # (Auto) (2831-5464) /uL Lymph # (Auto) (3168-7412) /uL Woodson # (Auto) (0-900) /uL Eos # (Auto) (0-450) /uL Baso # (Auto) (0-100) /uL RBC Morphology Anisocytosis Sodium (137-145) mmol/L Potassium (3.4-5.1) mmol/L Chloride (98-107) mmol/L Carbon Dioxide (22-32) mmol/L BUN (9-20) mg/dL Creatinine (0.66-1.25) mg/dL Estimated GFR (>60) mL/min BUN/Creatinine Ratio (6-22) Glucose (80-110) mg/dL Lactate (0.7-2.1) mmol/L Calcium (8.4-10.2) mg/dL Total Bilirubin (0.2-1.3) mg/dL AST (17-59) IU/L ALT (<50) IU/L Alkaline Phosphatase (38-126) U/L Total Creatine Kinase (55-170) U/L CK-MB (CK-2) CK-MB (CK-2) Rel Index Troponin I (0.01-0.034) ng/mL Total Protein (6.3-8.2) g/dL Albumin (3.5-5.0) g/dL Globulin (1.7-4.1) g/dL Albumin/Globulin Ratio (1.0-2.8) Lipase (23-300) U/L Urine Color Dark yellow Urine Appearance Clear Urine pH 5.0 (4.5-8.0) Ur Specific Cadott >=1.030 H (1.000-1.035) Urine Protein Trace H (Negative) Urine Glucose (UA) Trace H (Negative) g/dL Urine Ketones Negative (NEGATIVE) Urine Occult Blood Trace-intact (Negative) Urine Nitrate Negative (Negative) Urine Bilirubin Negative (NEGATIVE) Urine Urobilinogen 0.2 (0.2) E.U./dL Ur Leukocyte Esterase Negative (NEGATIVE) Urine RBC 1-5/hpf (0-5/HPF) Urine WBC 0-1/hpf (0-5/HPF) Ur Squamous Epith Cells 0-1 /hpf (0-5/HPF) Ur Transition Epith Cell 0-1/hpf (0-5/HPF) Urine Bacteria Few (2-10) H (None) Urine Mucus 1+ H (Negative) Ur Culture Indicated? Cult not indicated Salicylates (<20) mg/dL U Opiates 300ng/mL cut Positive H (Negative) Ur Oxycodone Screen Negative (Negative) Urine Methadone Screen Negative (Negative) Acetaminophen (10-30) ug/mL Ur Barbiturates Screen Negative (Negative) U Tricyclic Antidepress Negative (Negative) Ur Phencyclidine Scrn Negative (Negative) Ur Amphetamines Screen Negative (Negative) U Methamphetamines Scrn Negative (Negative) Ur MDMA Scrn (Ecstasy) Negative (Negative) U Benzodiazepines Scrn Positive H (Negative) Urine Cocaine Screen Negative (Negative) U Marijuana (THC) Screen Negative (Negative) Ethyl Alcohol ( - 10) mg/dL SARS-CoV-2 (PCR) (Negative) Imaging Data Chest x-ray: Radiologist's Impression: Close Chest/Abdomen X-ray (Signed) Adolph Hale - 06/29/22 [place] [address] XRay Report Signed Patient: Fahad Ramesh MR#: [id number] : 1960 Acct:[id number] Age/Sex: 62 / M Date of Service: 06/29/22 Loc: ED Accession Number: [id number] ?? Procedure: XR acute abdomen series Ordering Provider: Richard Hannon D.O. PROCEDURE:? XR ACUTE ABDOMEN SERIES ? INDICATIONS:? asthma, constipation ? TECHNIQUE:? One view chest and two views of the abdomen were acquired.? ? COMPARISON:? None. ? FINDINGS:? ? Surgical changes and devices:? None.? ? Chest:? Lungs are clear.? Heart size is normal.? No pleural effusions.? No pneumoperitoneum.? ? Abdomen:? Bowel gas pattern is within normal limits.? No suspicious calcifications.? ? Bones:? No suspicious bony lesions.? ? IMPRESSION:? ? 1. Bowel gas pattern within normal limits without obstruction.? ? ? Dictated by: Adolph Hale M.D. on 06/29/2022 at 0:57 ? ? Approved by: Adolph Hale M.D. on 06/29/2022 at 1:04 ? CT scan - head: Radiologist's Impression: No acute intracranial CT abnormality seen CT scan - chest: Radiologist's Impression: No pneumonia, pleural effusion or pneumothorax CT scan - abdomen/pelvis: Radiologist's Impression: Scattered tiny hypodensities and spleen could represent cysts or hemangiomas, proctitis with fecal impaction MDM Narrative Medical decision making narrative: Patient feeling much better over the course of the evening. Only complaint is of rectal pain and trouble with bowel movements. He denies any chest pain or shortness of breath. Denies any abdominal pain whatsoever. Imaging has no significant findings. Labs are largely at baseline. Hospitalist has seen the patient at the bedside, she was involved in his care during recent extended visit and sure the opinion that he is at his baseline and there is no admittable diagnosis. INTERNET APPLICATION DEVELOPER consult placed for help getting patient home to [place] <Sosa Bernstein, DO - Last Filed: 06/29/22 17:54> Lab Data Labs: Lab Results 06/29/22 06/29/22 06/29/22 Range/Units 02:55 02:55 02:55 WBC 7.4 (4.5-11.0) X10^3/uL RBC 4.87 (4.5-5.9) X10^6/uL Hgb 11.5 L (13.5-17.5) g/dL Hct 35.2 L (41-53) % MCV 72.2 L (80-100) fL MCH 23.5 L (26-34) PG MCHC 32.6 (30-36) % RDW 21.2 H (11.6-14.8) % Plt Count 200 (150-400) X10^3/uL Neut % (Auto) 61.5 (50-75) % Lymph % (Auto) 26.8 (25-40) % Woodson % (Auto) 10.7 (3-14) % Eos % (Auto) 0.8 L (2-4) % Baso % (Auto) 0.2 (0-2) % Neut # (Auto) 4500 (2268-2755) /uL Lymph # (Auto) 2000 (3520-9739) /uL Woodson # (Auto) 800 (0-900) /uL Eos # (Auto) 100 (0-450) /uL Baso # (Auto) 0 (0-100) /uL RBC Morphology See below Anisocytosis 2+ H Sodium 140 (137-145) mmol/L Potassium 3.9 (3.4-5.1) mmol/L Chloride 102 (98-107) mmol/L Carbon Dioxide 33 H (22-32) mmol/L BUN 24 H (9-20) mg/dL Creatinine 0.55 L (0.66-1.25) mg/dL Estimated GFR > 60 (>60) mL/min BUN/Creatinine Ratio 43.6 H (6-22) Glucose 115 H (80-110) mg/dL Lactate (0.7-2.1) mmol/L Calcium 9.2 (8.4-10.2) mg/dL Total Bilirubin 0.5 (0.2-1.3) mg/dL AST 102 H (17-59) IU/L ALT 269 H (<50) IU/L Alkaline Phosphatase 93 (38-126) U/L Total Creatine Kinase 32 L (55-170) U/L CK-MB (CK-2) TNP CK-MB (CK-2) Rel Index TNP Troponin I < 0.012 (0.01-0.034) ng/mL Total Protein 7.7 (6.3-8.2) g/dL Albumin 4.1 (3.5-5.0) g/dL Globulin 3.6 (1.7-4.1) g/dL Albumin/Globulin Ratio 1.1 (1.0-2.8) Lipase 39 (23-300) U/L Urine Color Urine Appearance Urine pH (4.5-8.0) Ur Specific Cadott (1.000-1.035) Urine Protein (Negative) Urine Glucose (UA) (Negative) g/dL Urine Ketones (NEGATIVE) Urine Occult Blood (Negative) Urine Nitrate (Negative) Urine Bilirubin (NEGATIVE) Urine Urobilinogen (0.2) E.U./dL Ur Leukocyte Esterase (NEGATIVE) Urine RBC (0-5/HPF) Urine WBC (0-5/HPF) Ur Squamous Epith Cells (0-5/HPF) Ur Transition Epith Cell (0-5/HPF) Urine Bacteria (None) Urine Mucus (Negative) Ur Culture Indicated? Salicylates (<20) mg/dL U Opiates 300ng/mL cut (Negative) Ur Oxycodone Screen (Negative) Urine Methadone Screen (Negative) Acetaminophen (10-30) ug/mL Ur Barbiturates Screen (Negative) U Tricyclic Antidepress (Negative) Ur Phencyclidine Scrn (Negative) Ur Amphetamines Screen (Negative) U Methamphetamines Scrn (Negative) Ur MDMA Scrn (Ecstasy) (Negative) U Benzodiazepines Scrn (Negative) Urine Cocaine Screen (Negative) U Marijuana (THC) Screen (Negative) Ethyl Alcohol < 10 ( - 10) mg/dL SARS-CoV-2 (PCR) (Negative) 06/29/22 06/29/22 06/29/22 Range/Units 02:55 02:55 03:24 WBC (4.5-11.0) X10^3/uL RBC (4.5-5.9) X10^6/uL Hgb (13.5-17.5) g/dL Hct (41-53) % MCV (80-100) fL MCH (26-34) PG MCHC (30-36) % RDW (11.6-14.8) % Plt Count (150-400) X10^3/uL Neut % (Auto) (50-75) % Lymph % (Auto) (25-40) % Woodson % (Auto) (3-14) % Eos % (Auto) (2-4) % Baso % (Auto) (0-2) % Neut # (Auto) (5116-4174) /uL Lymph # (Auto) (4921-6201) /uL Woodson # (Auto) (0-900) /uL Eos # (Auto) (0-450) /uL Baso # (Auto) (0-100) /uL RBC Morphology Anisocytosis Sodium (137-145) mmol/L Potassium (3.4-5.1) mmol/L Chloride (98-107) mmol/L Carbon Dioxide (22-32) mmol/L BUN (9-20) mg/dL Creatinine (0.66-1.25) mg/dL Estimated GFR (>60) mL/min BUN/Creatinine Ratio (6-22) Glucose (80-110) mg/dL Lactate 0.8 (0.7-2.1) mmol/L Calcium (8.4-10.2) mg/dL Total Bilirubin (0.2-1.3) mg/dL AST (17-59) IU/L ALT (<50) IU/L Alkaline Phosphatase (38-126) U/L Total Creatine Kinase (55-170) U/L CK-MB (CK-2) CK-MB (CK-2) Rel Index Troponin I (0.01-0.034) ng/mL Total Protein (6.3-8.2) g/dL Albumin (3.5-5.0) g/dL Globulin (1.7-4.1) g/dL Albumin/Globulin Ratio (1.0-2.8) Lipase (23-300) U/L Urine Color Urine Appearance Urine pH (4.5-8.0) Ur Specific Cadott (1.000-1.035) Urine Protein (Negative) Urine Glucose (UA) (Negative) g/dL Urine Ketones (NEGATIVE) Urine Occult Blood (Negative) Urine Nitrate (Negative) Urine Bilirubin (NEGATIVE) Urine Urobilinogen (0.2) E.U./dL Ur Leukocyte Esterase (NEGATIVE) Urine RBC (0-5/HPF) Urine WBC (0-5/HPF) Ur Squamous Epith Cells (0-5/HPF) Ur Transition Epith Cell (0-5/HPF) Urine Bacteria (None) Urine Mucus (Negative) Ur Culture Indicated? Salicylates < 1.0 (<20) mg/dL U Opiates 300ng/mL cut (Negative) Ur Oxycodone Screen (Negative) Urine Methadone Screen (Negative) Acetaminophen < 10 (10-30) ug/mL Ur Barbiturates Screen (Negative) U Tricyclic Antidepress (Negative) Ur Phencyclidine Scrn (Negative) Ur Amphetamines Screen (Negative) U Methamphetamines Scrn (Negative) Ur MDMA Scrn (Ecstasy) (Negative) U Benzodiazepines Scrn (Negative) Urine Cocaine Screen (Negative) U Marijuana (THC) Screen (Negative) Ethyl Alcohol ( - 10) mg/dL SARS-CoV-2 (PCR) Negative (Negative) 06/29/22 06/29/22 Range/Units 03:40 03:40 WBC (4.5-11.0) X10^3/uL RBC (4.5-5.9) X10^6/uL Hgb (13.5-17.5) g/dL Hct (41-53) % MCV (80-100) fL MCH (26-34) PG MCHC (30-36) % RDW (11.6-14.8) % Plt Count (150-400) X10^3/uL Neut % (Auto) (50-75) % Lymph % (Auto) (25-40) % Woodson % (Auto) (3-14) % Eos % (Auto) (2-4) % Baso % (Auto) (0-2) % Neut # (Auto) (7721-2303) /uL Lymph # (Auto) (8696-2012) /uL Woodson # (Auto) (0-900) /uL Eos # (Auto) (0-450) /uL Baso # (Auto) (0-100) /uL RBC Morphology Anisocytosis Sodium (137-145) mmol/L Potassium (3.4-5.1) mmol/L Chloride (98-107) mmol/L Carbon Dioxide (22-32) mmol/L BUN (9-20) mg/dL Creatinine (0.66-1.25) mg/dL Estimated GFR (>60) mL/min BUN/Creatinine Ratio (6-22) Glucose (80-110) mg/dL Lactate (0.7-2.1) mmol/L Calcium (8.4-10.2) mg/dL Total Bilirubin (0.2-1.3) mg/dL AST (17-59) IU/L ALT (<50) IU/L Alkaline Phosphatase (38-126) U/L Total Creatine Kinase (55-170) U/L CK-MB (CK-2) CK-MB (CK-2) Rel Index Troponin I (0.01-0.034) ng/mL Total Protein (6.3-8.2) g/dL Albumin (3.5-5.0) g/dL Globulin (1.7-4.1) g/dL Albumin/Globulin Ratio (1.0-2.8) Lipase (23-300) U/L Urine Color Dark yellow Urine Appearance Clear Urine pH 5.0 (4.5-8.0) Ur Specific Cadott >=1.030 H (1.000-1.035) Urine Protein Trace H (Negative) Urine Glucose (UA) Trace H (Negative) g/dL Urine Ketones Negative (NEGATIVE) Urine Occult Blood Trace-intact (Negative) Urine Nitrate Negative (Negative) Urine Bilirubin Negative (NEGATIVE) Urine Urobilinogen 0.2 (0.2) E.U./dL Ur Leukocyte Esterase Negative (NEGATIVE) Urine RBC 1-5/hpf (0-5/HPF) Urine WBC 0-1/hpf (0-5/HPF) Ur Squamous Epith Cells 0-1 /hpf (0-5/HPF) Ur Transition Epith Cell 0-1/hpf (0-5/HPF) Urine Bacteria Few (2-10) H (None) Urine Mucus 1+ H (Negative) Ur Culture Indicated? Cult not indicated Salicylates (<20) mg/dL U Opiates 300ng/mL cut Positive H (Negative) Ur Oxycodone Screen Negative (Negative) Urine Methadone Screen Negative (Negative) Acetaminophen (10-30) ug/mL Ur Barbiturates Screen Negative (Negative) U Tricyclic Antidepress Negative (Negative) Ur Phencyclidine Scrn Negative (Negative) Ur Amphetamines Screen Negative (Negative) U Methamphetamines Scrn Negative (Negative) Ur MDMA Scrn (Ecstasy) Negative (Negative) U Benzodiazepines Scrn Positive H (Negative) Urine Cocaine Screen Negative (Negative) U Marijuana (THC) Screen Negative (Negative) Ethyl Alcohol ( - 10) mg/dL SARS-CoV-2 (PCR) (Negative) MDM Narrative Medical decision making narrative: Patient feeling much better over the course of the evening. Only complaint is of rectal pain and trouble with bowel movements. He denies any chest pain or shortness of breath. Denies any abdominal pain whatsoever. Imaging has no significant findings. Labs are largely at baseline. Hospitalist has seen the patient at the bedside, she was involved in his care during recent extended visit and sure the opinion that he is at his baseline and there is no admittable diagnosis. INTERNET APPLICATION DEVELOPER consult placed for help getting patient home to [place]. Patient signed out to me by Dr. Hannon. Mahogany seen evaluated patient myself. He had extensive long stay in this hospital. He was finally placed an adult usp near [facility]. Presented with of rectal pain. He apparently was up tended he had CTA head chest have was and blood work. Everything was overall reassuring. He was found to have a large stool. And he is complaining of burning pain in his rectum. Home confirms that he has been suffering with constipation. At this time there is no reason for readmission. Social Work has been involved. He can return to his adult home. Central line pulled by me. Jose VYAS back to his adult home. Discharge Plan Departure Patient Disposition: Home Clinical Impression: Constipation Instructions: DI for Constipation Activity Restrictions/Additional Instructions: *You have been diagnosed with constipation *What to do: At this time your blood work and scans in the emergency department checked out. You are constipated. Recommend increasing her water intake increasing high-fiber with fruits and vegetables. *Continue to take medications as directed Bag magnesium citrate 1 bottle when you go home Lactulose 10 g/15mL 1-2 times daily if needed for constipation *Follow up with your primary care provider in 2-3 days or call [phone] *Return to ER if you should have any new, worsening or concerning symptoms Prescriptions: New lactulose 10 gram/15 mL solution 10 g PO DAILY PRN (Reason: constipation) Qty: 237 0RF No Action sertraline [Zoloft] 100 mg Tablet 100 mg PO DAILY acetaminophen 325 mg Tablet 650 mg PO Q6HR PRN (Reason: Fever/Mild Pain (1-3)) Qty: 30 0RF fluticasone propion-salmeterol 250-50 mcg/dose blister with device 1 inh INHALATION BID Qty: 1 0RF albuterol sulfate 90 mcg/actuation HFA aerosol inhaler 1 puff INHALATION BID Label Comments: INHALE 1 PUFF INTO THE LUNGS TWICE DAILY Spiriva Respimat 2.5 mcg/actuation mist 2 puff INHALATION DAILY Label Comments: INHALE 2 PUFFS INTO THE LUNGS DAILY folic acid 1 mg Tablet 1 mg PO DAILY Qty: 30 0RF aspirin 81 mg Tablet,Delayed Release (Dr/Ec) 81 mg PO DAILY 30 Days Qty: 30 0RF atorvastatin 40 mg tablet 40 mg PO BEDTIME 30 Days Qty: 30 0RF duloxetine 60 mg capsule,delayed release(DR/EC) 60 mg PO DAILY 30 Days Qty: 30 0RF gabapentin [Neurontin] 400 mg Capsule 400 mg PO TID 30 Days Qty: 90 0RF ibuprofen 400 mg Tablet 600 mg PO TID PRN (Reason: Mild Pain (Scale Score 1-4)) 30 Days Qty: 90 0RF ondansetron 4 mg Tablet,Disintegrating 4 mg sublingual Q4H PRN (Reason: Nausea) 30 Days Qty: 30 0RF fentanyl 12 mcg/hr Patch 72 Hour 12 mcg topical Q72H 15 Days Qty: 5 0RF multivitamin with folic acid [Tab-A-Kitty] 400 mcg Tablet 1 tab PO DAILY 30 Days Qty: 30 0RF sennosides [senna] 8.6 mg Tablet 8.6 mg PO BID 30 Days Qty: 60 0RF pantoprazole 40 mg Tablet,Delayed Release (Dr/Ec) 40 mg PO BID 30 Days Qty: 60 0RF Orajel 1 dose topical Q4H 30 Days Qty: 1 0RF Referrals: Kenney Joshi MD [Primary Care Provider] - Visit Report Forms: Patient Portal/API
--- NOTE | 2022-06-29 00:13 | DI.RAD.S_ITS ---
PROCEDURE: XR ACUTE ABDOMEN SERIES INDICATIONS: asthma, constipation TECHNIQUE: One view chest and two views of the abdomen were acquired. COMPARISON: None. FINDINGS: Surgical changes and devices: None. Chest: Lungs are clear. Heart size is normal. No pleural effusions. No pneumoperitoneum. Abdomen: Bowel gas pattern is within normal limits. No suspicious calcifications. Bones: No suspicious bony lesions. IMPRESSION: 1. Bowel gas pattern within normal limits without obstruction. Dictated by: Adolph Hale M.D. on 06/29/2022 at 0:57 Approved by: Adolph Hale M.D. on 06/29/2022 at 1:04
[2022-06-29] MEDS: SODIUM CHLORIDE 0.9% 1,000 ML 1000 ML IV (03:05)
[2022-06-29 03:11] LABS: Add Manual Diff / Slide Review NO; Basophils Absolute Auto 0 /uL (0-100); Basophils Percent Auto 0.2 % (0-2); Eosinophils Absolute Auto 100 /uL (0-450); Eosinophils Percent Auto 0.8 % (2-4); Hematocrit 35.2 % (41-53); Hemoglobin 11.5 g/dL (13.5-17.5); Lymphocytes Absolute Auto 2000 /uL (1100-4500); Lymphocytes Percent Auto 26.8 % (25-40); Mean Corpuscular HGB Conc 32.6 % (30-36); Mean Corpuscular Hemoglobin 23.5 PG (26-34); Mean Corpuscular Volume 72.2 fL (80-100); Monocytes Absolute Auto 800 /uL (0-900); Monocytes Percent Auto 10.7 % (3-14); Neutrophils Absolute Auto 4500 /uL (1500-7000); Neutrophils Percent Auto 61.5 % (50-75); Platelet Count 200 X10^3/uL (150-400); Red Blood Cell Count 4.87 X10^6/uL (4.5-5.9); Red Cell Distribution Width 21.2 % (11.6-14.8); White Blood Cell Count 7.4 X10^3/uL (4.5-11.0)
[2022-06-29 03:18] LABS: Creatine Kinase 32 U/L (55-170); Ethanol (ETOH) < 10 mg/dL; Lactate (Lactic Acid) 0.8 mmol/L (0.7-2.1)
[2022-06-29 03:19] LABS: Acetaminophen < 10 ug/mL (10-30); Salicylate < 1.0 mg/dL (<20)
[2022-06-29 03:20] LABS: Alanine Aminotransferase 269 IU/L (<50); Albumin 4.1 g/dL (3.5-5.0); Albumin Globulin Ratio 1.1 (1.0-2.8); Alkaline Phosphatase 93 U/L (38-126); Aspartate Aminotransferase 102 IU/L (17-59); BUN Creatinine Ratio 43.6 (6-22); Bilirubin Total 0.5 mg/dL (0.2-1.3); Blood Urea Nitrogen 24 mg/dL (9-20); Calcium 9.2 mg/dL (8.4-10.2); Carbon Dioxide 33 mmol/L (22-32); Chloride 102 mmol/L (98-107); Estimated Glomerular Filt Rate > 60 mL/min (>60); Globulin 3.6 g/dL (1.7-4.1); Glucose 115 mg/dL (80-110); HEMOLYSIS < 15 (0-50); Lipase 39 U/L (23-300); Potassium 3.9 mmol/L (3.4-5.1); Sodium 140 mmol/L (137-145); Total Protein 7.7 g/dL (6.3-8.2)
[2022-06-29 03:28] LABS: Anisocytosis 2+
--- NOTE | 2022-06-29 03:30 | DI.CT.S_ITS ---
PROCEDURE: CT CHEST ABD PEL W CON INDICATIONS: altered mental status, sepsis TECHNIQUE: After the administration of intravenous contrast, axial sections acquired from the supraclavicular neck to the pubic symphysis. Coronal and sagittal reformats were performed. For radiation dose reduction, the following was used: automated exposure control, adjustment of mA and/or kV according to patient size. COMPARISON:[facility], CR, XR CHEST 1V, 06/29/2022, 2:50. [facility], CR, XR ACUTE ABDOMEN SERIES, 06/29/2022, 0:34. [facility], CT, ABDOMEN/PELVIS WITH CONTRAST, 01/15/2018, 19:29. [facility], CT, CT ABDOMEN PELVIS WO CON, 05/23/2022, 15:29. FINDINGS: Image quality: Excellent. CHEST: Lower Neck: No enlarged lymph nodes. Thyroid: Within normal limits. Axillae: No enlarged lymph nodes. Chest Wall: There are multiple old right rib fractures. There is a right subclavian central line with the tip in the area of SVC. Lungs and Airways: No consolidation. There is a 3 mm nodule in the left upper lobe (series 3, image 105). A calcified granuloma is seen in the right upper lobe. Bibasilar scars and atelectasis. Pleura: No pneumothorax or pleural effusions. Heart: Heart size is normal. No pericardial effusion. Mild coronary artery calcification. Thoracic Vessels: The aorta and pulmonary arteries demonstrate normal size. Mediastinum and Kaya: No enlarged lymph nodes. Esophagus: No wall thickening. No hiatal hernia. ABDOMEN: Liver: Unremarkable. Gallbladder: Unremarkable. Biliary ducts: Unremarkable. Pancreas: Unremarkable. Spleen: Borderline enlarged measuring 13 cm in length. Tiny indeterminate hypodensity is seen in spleen. Adrenal Glands: Unremarkable. Kidneys and Ureters: Unremarkable. Stomach and Bowel: Stomach, small bowel loops, and colon are unremarkable. There is a large amount of stool in colon. Mild stranding around rectum. Peritoneum: No abnormal intraperitoneal fluid. No free air. Ventral Wall: No hernia. Abdominal Nodes: No retroperitoneal or mesenteric adenopathy by size criteria. Vessels: Aorta and inferior vena cava are normal in size. PELVIS: Pelvic Organs: Prostate is enlarged. Bladder: Unremarkable. Pelvic Nodes: No enlarged lymph nodes. Miscellaneous: No inguinal hernias are seen. Bones: Mild compression fracture of T6, T7, T11, T12 and L3. Grade 1 anterolisthesis of L4 on L5. Degenerative disc and facet disease noted. Old right pelvic fracture. Old left femoral neck fracture with internal fixation. IMPRESSION: 1. No acute abnormalities identified in thorax, abdomen or pelvis. 2. There is mild stranding around the rectum suspicious for proctitis. 3. Mild splenomegaly and numerous tiny hypodensities in spleen. These findings are unchanged from 01/15/2018. Diagnostic considerations are infection, inflammatory process and neoplasm. Recommend clinical correlation. 4. Mild compression fractures in thoracic and lumbar spine. No significant discrepancy with the night auditor radiology preliminary report. Dictated by: Shawn Rosenberg M.D. on 06/29/2022 at 7:45 Approved by: Shawn Rosenberg M.D. on 06/29/2022 at 9:55
--- NOTE | 2022-06-29 03:30 | DI.CT.S_ITS ---
PROCEDURE: CT HEAD/BRAIN WO CON INDICATIONS: altered, weak TECHNIQUE: Noncontrast 4.5 mm thick angled axial sections acquired from the foramen magnum to the vertex, with coronal and sagittal reformats. For radiation dose reduction, the following was used: automated exposure control, adjustment of mA and/or kV according to patient size. COMPARISON: None. FINDINGS: Image quality: Excellent. CSF spaces: Basal cisterns are patent. No extra-axial fluid collections. Ventricles are normal in size and shape. Brain: No midline shift. No intracranial masses or hemorrhage. Thomas-white matter interface is normal. Skull and face: Calvarium and visualized facial bones are intact, without suspicious lesions. Sinuses: Mucous retention cyst versus polyp noted in left maxillary sinus. The mastoids are clear. IMPRESSION: No acute intracranial disease process. Dictated by: Nicci Engel MD, PhD on 06/29/2022 at 7:32 Approved by: Nicci Engel MD, PhD on 06/29/2022 at 7:34
[2022-06-29 03:31] LABS: Troponin I < 0.012 ng/mL (0.01-0.034)
[2022-06-29 03:50] LABS: COVID19 -Nasal RAPID Negative (Negative)
[2022-06-29 03:57] LABS: UR Morphine/Opiate cutoff 300 Positive (Negative); Ur Creatinine Normal (Normal); Ur Specific Gravity Normal (Normal); Urine Amphetamines Negative (Negative); Urine Barbiturates Negative (Negative); Urine Benzodiazepines Positive (Negative); Urine Cocaine Negative (Negative); Urine MDMA Negative (Negative); Urine Methadone Negative (Negative); Urine Methamphetamines Negative (Negative); Urine Oxycodone Negative (Negative); Urine Phencyclidine Negative (Negative); Urine Tetrahydrocannabinol Negative (Negative); Urine Tricyclic Antidepressant Negative (Negative); Urine pH Normal (Normal)
[2022-06-29 04:26] LABS: Appearance Urine UA CLEAR; Bilirubin Urine UA NEGATIVE (NEGATIVE); Glucose Urine UA TRACE g/dL (Negative); Ketones Urine UA NEGATIVE (NEGATIVE); Leukocyte Esterase Urine UA NEGATIVE (NEGATIVE); Nitrite Urine UA NEGATIVE (Negative); Occult Blood Urine UA TRACE-INTACT (Negative); Protein Urine UA TRACE (Negative); Specific Gravity Urine UA >=1.030 (1.000-1.035); Urobilinogen Urine UA 0.2 E.U./dL (0.2)
[2022-06-29 04:27] LABS: Color Urine UA Dark Yellow; RBC Urine 1-5/HPF (0-5/HPF); Squamous Epithelial Cell Urine 0-1 /HPF (0-5/HPF); Transitional Epi Cells Urine 0-1/HPF (0-5/HPF); WBC Urine 0-1/HPF (0-5/HPF)
[2022-06-29 04:28] LABS: Bacteria Urine Few (2-10); Culture Indicated Urine Cult Not Indicated; Mucus Urine 1+ (Negative)
--- NOTE | 2022-06-29 06:46 | P.PN_ITS ---
Subjective Subjective Date Patient Seen: 06/29/22 Interval history: 62-year-old gentleman well known to the hospitalist service after a recent 55 day hospital stay due to longstanding polysubstance dependence, prior stroke and generalized debility who discharged to an adult family custodial on June 25 return to the emergency department last night with complaint of rectal pain. Patient reports he does not like the care facility. He states he is incontinent and they ?do not like to change me ?. He states he is often in wet briefs and linens. He notes he left the facility last evening in hopes of finding a better facility. He is required to return by 8:00 p.m. kiki. He states he had friends pick him up and bring him to [place]. He and 1 was reported to be his ex- if the unit evening and brought donis for the staff. He evidently was complaining of rectal pain and elected to check into the emergency department. His friend subsequently elected to leave and turned her cell phone off. In the emergency department, patient was noted to be guaiac negative. He has had 2 bowel movements. He underwent workup inclusive of a CBC which was fairly consistent with prior labs with a normal white blood cell count of 7.4, hemoglobin 11.5, hematocrit 35.2, platelets 200. Chemistry panel revealed again fairly consistent labs from prior. Creatinine was 0.55, bicarb 33, BUN 24. Lactate was 0.8. AST was increased at 102 compared to 58 on June 12. ALT up to 269 compared to 85 previously. Cardiac enzymes negative. Alkaline phosphatase 93. UA revealed trace protein and trace glucose with a specific gravity of greater than 1.030. Urine tox screen was positive for opiates and benzodiazepines. COVID test was negative. Imaging revealed normal bowel gas p attern on acute abdominal x-ray series. Chest x-ray revealed a right subclavian central venous line (this was placed secondary to patient's poor access). CT of the abdomen and pelvis revealed scattered tiny hypodensities in the spleen possibly representing cysts or hemangioma. Nonspecific findings but infectious or malignant process could not be excluded. Fatty liver was noted. Follow-up multiphase CT recommended as well as clinical correlation. CT of the head revealed no acute intracranial abnormalities. Patient tells me he has been feeling well overall. No fevers or chills. No sweats. No nausea or vomiting. Reports his appetite is intact. No abdominal pain. He denies any drug use since discharge. Exam Vital Signs (past 8 hours): - 06/28/22 23:00 06/29/22 03:07 06/29/22 03:30 Temperature 98.5 F Pulse Rate 94 H 75 Respiratory Rate 18 Blood Pressure 168/88 H 123/69 Pulse Oximetry 94 94 Oxygen Delivery Method Room Air 06/29/22 03:30 06/29/22 05:03 06/29/22 05:04 Temperature Pulse Rate 73 74 Respiratory Rate 13 15 Blood Pressure Pulse Oximetry 96 97 94 Oxygen Delivery Method 06/29/22 05:04 Temperature Pulse Rate Respiratory Rate Blood Pressure 126/71 Pulse Oximetry Oxygen Delivery Method Oxygen Delivery Method Room Air Narrative Exam Narrative: GEN:? Middle-aged male, Alert and oriented x 3, chronically ill appearing, NAD HEENT: NC, asymmetric CHEST: Respiratory excursions symmetric, CTAB CV: RRR, no M/R/G ABD: Soft, NT/ND, BT present in all 4 quadrants, no organomegaly or masses EXTR: warm, well perfused, no C/C/E SKIN: warm and dry, no rash NEURO: Alert and oriented x 3, persistent right upper extremity weakness Objective Labs Result Diagrams: 06/29/22 02:55 06/29/22 02:55 Labs: Laboratory Results - last 24 hr 06/29/22 06/29/22 06/29/22 02:55 02:55 02:55 WBC 7.4 RBC 4.87 Hgb 11.5 L Hct 35.2 L MCV 72.2 L MCH 23.5 L MCHC 32.6 RDW 21.2 H Plt Count 200 Neut % (Auto) 61.5 Lymph % (Auto) 26.8 [place] % (Auto) 10.7 Eos % (Auto) 0.8 L Baso % (Auto) 0.2 Neut # (Auto) 4500 Lymph # (Auto) 2000 [place] # (Auto) 800 Eos # (Auto) 100 Baso # (Auto) 0 RBC Morphology See below Anisocytosis 2+ H Sodium 140 Potassium 3.9 Chloride 102 Carbon Dioxide 33 H BUN 24 H Creatinine 0.55 L Estimated GFR > 60 BUN/Creatinine Ratio 43.6 H Glucose 115 H Lactate Calcium 9.2 Total Bilirubin 0.5 AST 102 H ALT 269 H Alkaline Phosphatase 93 Total Creatine Kinase 32 L CK-MB (CK-2) TNP CK-MB (CK-2) Rel Index TNP Troponin I < 0.012 Total Protein 7.7 Albumin 4.1 Globulin 3.6 Albumin/Globulin Ratio 1.1 Lipase 39 Urine Color Urine Appearance Urine pH Ur Specific [place] Urine Protein Urine Glucose (UA) Urine Ketones Urine Occult Blood Urine Nitrate Urine Bilirubin Urine Urobilinogen Ur Leukocyte Esterase Urine RBC Urine WBC Ur Squamous Epith Cells Ur Transition Epith Cell Urine Bacteria Urine Mucus Ur Culture Indicated? Salicylates U Opiates 300ng/mL cut Ur Oxycodone Screen Urine Methadone Screen Acetaminophen Ur Barbiturates Screen U Tricyclic Antidepress Ur Phencyclidine Scrn Ur Amphetamines Screen U Methamphetamines Scrn Ur MDMA Scrn (Ecstasy) U Benzodiazepines Scrn Urine Cocaine Screen U Marijuana (THC) Screen Ethyl Alcohol < 10 SARS-CoV-2 (PCR) 06/29/22 06/29/22 06/29/22 02:55 02:55 03:24 WBC RBC Hgb Hct MCV MCH MCHC RDW Plt Count Neut % (Auto) Lymph % (Auto) [place] % (Auto) Eos % (Auto) Baso % (Auto) Neut # (Auto) Lymph # (Auto) [place] # (Auto) Eos # (Auto) Baso # (Auto) RBC Morphology Anisocytosis Sodium Potassium Chloride Carbon Dioxide BUN Creatinine Estimated GFR BUN/Creatinine Ratio Glucose Lactate 0.8 Calcium Total Bilirubin AST ALT Alkaline Phosphatase Total Creatine Kinase CK-MB (CK-2) CK-MB (CK-2) Rel Index Troponin I Total Protein Albumin Globulin Albumin/Globulin Ratio Lipase Urine Color Urine Appearance Urine pH Ur Specific [place] Urine Protein Urine Glucose (UA) Urine Ketones Urine Occult Blood Urine Nitrate Urine Bilirubin Urine Urobilinogen Ur Leukocyte Esterase Urine RBC Urine WBC Ur Squamous Epith Cells Ur Transition Epith Cell Urine Bacteria Urine Mucus Ur Culture Indicated? Salicylates < 1.0 U Opiates 300ng/mL cut Ur Oxycodone Screen Urine Methadone Screen Acetaminophen < 10 Ur Barbiturates Screen U Tricyclic Antidepress Ur Phencyclidine Scrn Ur Amphetamines Screen U Methamphetamines Scrn Ur MDMA Scrn (Ecstasy) U Benzodiazepines Scrn Urine Cocaine Screen U Marijuana (THC) Screen Ethyl Alcohol SARS-CoV-2 (PCR) Negative 06/29/22 06/29/22 03:40 03:40 WBC RBC Hgb Hct MCV MCH MCHC RDW Plt Count Neut % (Auto) Lymph % (Auto) [place] % (Auto) Eos % (Auto) Baso % (Auto) Neut # (Auto) Lymph # (Auto) [place] # (Auto) Eos # (Auto) Baso # (Auto) RBC Morphology Anisocytosis Sodium Potassium Chloride Carbon Dioxide BUN Creatinine Estimated GFR BUN/Creatinine Ratio Glucose Lactate Calcium Total Bilirubin AST ALT Alkaline Phosphatase Total Creatine Kinase CK-MB (CK-2) CK-MB (CK-2) Rel Index Troponin I Total Protein Albumin Globulin Albumin/Globulin Ratio Lipase Urine Color Dark yellow Urine Appearance Clear Urine pH 5.0 Ur Specific [place] >=1.030 H Urine Protein Trace H Urine Glucose (UA) Trace H Urine Ketones Negative Urine Occult Blood Trace-intact Urine Nitrate Negative Urine Bilirubin Negative Urine Urobilinogen 0.2 Ur Leukocyte Esterase Negative Urine RBC 1-5/hpf Urine WBC 0-1/hpf Ur Squamous Epith Cells 0-1 /hpf Ur Transition Epith Cell 0-1/hpf Urine Bacteria Few (2-10) H Urine Mucus 1+ H Ur Culture Indicated? Cult not indicated Salicylates U Opiates 300ng/mL cut Positive H Ur Oxycodone Screen Negative Urine Methadone Screen Negative Acetaminophen Ur Barbiturates Screen Negative U Tricyclic Antidepress Negative Ur Phencyclidine Scrn Negative Ur Amphetamines Screen Negative U Methamphetamines Scrn Negative Ur MDMA Scrn (Ecstasy) Negative U Benzodiazepines Scrn Positive H Urine Cocaine Screen Negative U Marijuana (THC) Screen Negative Ethyl Alcohol SARS-CoV-2 (PCR) [facility] Medical History (Updated 06/13/22 @ 17:45 by Venu Vega DMD) Asthma Chronic back pain greater than 3 months duration Closed intertrochanteric fracture of left femur Depression Drug abuse, IV History of CVA (cerebrovascular accident) Poor dentition Surgical History History of hernia repair Family History Father Unknown family medical history Mother No problems noted. Grandmother Myocardial infarction Grandfather No problems noted. Social History household members: friend(s) Smoking Status: Current some day smoker alcohol intake: current Assessment & Plan Assessment & Plan narrative: 1. Constipation/proctitis Patient has had 2 bowel movements in the emergency department. Would recommend ongoing aggressive bowel regimen. No concerning findings on exam. He is afebrile. 2. Transaminitis LFTs are certainly increased compared to prior. He denies any substance use since discharge 4 days ago. That said, he does have a positive urine tox screen today. He does have fatty liver on CT. No evidence of abscess or other concerning findings. He does have known hepatitis C based on a positive hep C antibody and hep C RNA greater than 1,000,000 during his prior hospitalization. Recommendations were given at discharge for follow-up for consideration of treatment. 3. Possible splenic cysts versus hemangioma No concerning findings for infection. Specifically no fevers, chills, sweats, abdominal pain. White blood cell count is within normal limits. He denies IV drug use since discharge. Certainly it is possible but he has been in adult family up until last evening. Would consider follow-up outpatient triple phase CT. 4. Cerebrovascular accident complicated by right-sided weakness No acute changes on CT. He appears to be at his neurologic baseline. 5. Microcytic anemia Chronic and stable at this point. 6. Hyperlipidemia Atorvastatin At this point, I do not see any indication for admission. Patient denies any complaints aside from rectal pain related to constipation and proctitis. Would recommend working on getting him transferred back to his adult family custodial with follow-up as recommended. Time Spent With Patient Critical Care time: I spent a total of [] minutes of critical care time on this patient's care today; this time is exclusive of procedural time.
[2022-06-29] MEDS: MAGNESIUM CITRATE 300 ML SOLUTION PO (08:53)
--- NOTE | 2022-06-29 08:58 | CM.SWNOTE ---
Patient is a 62 yo male who was admitted to [place] ED on 06/28/22 last night for abd pain. SECURITY OFFICERS AND GUARDS Consult placed as pt was recently admitted to [facility] for an extended stay due to the need for LTC placement and was admitted for around 55 days while getting Medicaid applied for and approved and assessed by [facility] for LTC placement and then AFH was secured. Per ED MD, no medical need for admission. Per ED RN, pt was brought by family/friend to the ED and dropped off and they left and have not answered their phones. MELISA met bedside with pt in the ED and he confirms that his ex- Bridgette and friend Rubi picked him up yesterday from his AF[facility] and brought him up to [place] but unclear why he presented to the ED and pt states he wasn't very happy living at the AF (just moved in about a week ago) due to not having a TV or internet. SW discussed if he wanted to try another AF it may take some time and he would need to call his assigned HCS worker to begin looking into other facilities but could not remain at the hospital just for placement again. Pt acknowledged understanding and confirmed he was agreeable to go back but was hopeful for Bridgette or Rubi to transport him back and provided their contact numbers. SW attempted to call both and left messages stating pt not to be admitted and needing ride back to AF. MELISA called pt's AFH senior structural engineer Kamala at [facility] in [place] ([phone] [place] [address]). She states pt had stated his family needed to pick him up and have him witness an eviction notice to one of their tenants and stated he would be back last night. Then pt did call Kamala again yesterday evening stating he would be gone overnight but would be back today. She confirms he was having some difficulty with constipation and requested either increased Senna prescription or another medication for bowel regimen otherwise she is agreeable with him discharging from ED back to her AFH and requests ED documentation be faxed to her and new bowel prescription faxed to [facility] fax [phone]. MELISA updated pt on leaving messages for his contacts and no return calls since last night when they dropped him off and Kamala at [facility] accepting him back and pt agreeable via BLS transport. SW updated ED MD who is agreeable with changing his Senna for constipation concerns and updated RN who kindly will fax the clinicals to Kamala at [facility] and fax the Rx to [facility] and schedule transport. Plan: Patient to d/c back to [facility] from [place] ED today via BLS. CARLO Leonardo
[2022-07-02 15:48] LABS: Osmolality, Serum 293 mOsmol/kg (280-301)
== END 2022-06-29 10:30 | disposition home or self-care (01) ==
PROVIDERS: Emergency Medicine; Emergency Provider Emergency Medicine; Family Provider Family Medicine; PCP Family Medicine
DX: K59.00 Constipation, unspecified (principal); K62.89 Other specified diseases of anus and rectum; J45.909 Unspecified asthma, uncomplicated; Z20.822 Contact with and (suspected) exposure to COVID-19
CPT/HCPCS: 36415; 36556; 70450; 71045; 71260; 74022; 74177; 80053; 80305; 80320; 80329; 81001; 82550; 83605; 83690; 83930; 84484; 85025; 87040; 87635; 96360; 99284; C9803; G0480; Q9967